=== PATIENT | female | born 1955 | race Caucasian/White ===

== ENCOUNTER 2016-08-29 17:55 | Emergency (ER) | payer BC ==
[~2016-08-29] VITALS: Ht 167.6 cm; Wt 78.5 kg
[2016-08-29] MEDS ORDERED: ZOLP10TA2 PO (18:06)
[2016-08-29] MEDS ORDERED: PRED10TA PO (18:06)
[2016-08-29] MEDS ORDERED: COMBAER6 INH (18:06)
[2016-08-29] MEDS ORDERED: ESOM1CAP5 PO (18:06)
[2016-08-29] MEDS ORDERED: ATOR1TAB21 PO (18:06)
[2016-08-29] MEDS ORDERED: METF1000 PO (18:06)
[2016-08-29] MEDS ORDERED: ALPR0.25 PO (18:06)
[2016-08-29] MEDS ORDERED: SPIR1CAP INH (18:06)
[2016-08-29] MEDS ORDERED: IRBE150T12 (18:06)
[2016-08-29] MEDS ORDERED: methylPREDNISolone INJ 125 MG/2 ML VIAL (J2930) IV ONE (18:45)
[2016-08-29 18:57] LABS: BASO % 0.2 % (0.0-1.0); EOS # 0.1 K/mm3 (0.0-0.50); EOS % 0.9 % (0.0-3.0); LARGE UNSTAINED CELL # 0.1 K/mm3 (0.0-0.4); LARGE UNSTAINED CELL % 0.9 % (0.0-4.0); LYMPH # 1.4 K/mm3 (1.5-4.5); LYMPH % 17.4 % (24.0-44.0); MEAN CORPUSCULAR HEMOGLOBIN 26.7 pg (27.0-33.0); MEAN CORPUSCULAR HGB CONC 32.2 g/dl (32.0-36.5); MEAN CORPUSCULAR VOLUME 83.1 fl (80.0-96.0); MONO # 0.2 K/mm3 (0.0-0.8); MONO % 2.4 % (0.0-5.0); NEUTROPHILS # 5.8 K/mm3 (1.8-7.7); NEUTROPHILS % 78.2 % (36.0-66.0); PLATELET COUNT, AUTOMATED 242 k/mm3 (150-450); RED CELL DISTRIBUTION WIDTH 14.5 % (11.5-14.5); WHITE BLOOD COUNT 7.5 K/mm3 (4.0-10.0)
[2016-08-29] MEDS: IPRATROPIUM 0.5MG/ALBUTEROL 2.5MG INH SOL UD 3ML (DUONEB)(J7620) NEB PRN ×2 (18:58→19:02)
[2016-08-29 19:19] LABS: ALBUMIN 3.2 GM/DL (3.2-5.2); ALBUMIN/GLOBULIN RATIO 0.94 (1.00-1.93); ALKALINE PHOSPHATASE 131 U/L (45-117); ALT/SGPT 21 U/L (12-78); ANION GAP 6 MEQ/L (8-16); AST/SGOT 7 U/L (15-37); BILIRUBIN,DIRECT < 0.1 MG/DL (0.0-0.2); BILIRUBIN,TOTAL 0.3 MG/DL (0.2-1.0); BLOOD UREA NITROGEN 29 MG/DL (7-18); CALCIUM LEVEL 7.9 MG/DL (8.8-10.2); CARBON DIOXIDE LEVEL 31 MEQ/L (21-32); CHLORIDE LEVEL 99 MEQ/L (98-107); CREATININE FOR GFR 1.46 MG/DL (0.55-1.02); GLOMERULAR FILTRATION RATE 38.6 (>45); GLUCOSE, FASTING 343 MG/DL (80-110); SODIUM LEVEL 136 MEQ/L (136-145); THYROXINE (T4) 10.3 UG/DL (4.5-12.0); TOTAL PROTEIN 6.6 GM/DL (6.4-8.2)
[2016-08-29 19:20] LABS: POTASSIUM SERUM 5.2 MEQ/L (3.5-5.1)
[2016-08-29] MEDS ORDERED: hydrALAZINE INJ 20 MG/ML VIAL IV ONE (19:30)
--- NOTE | 2016-08-29 20:11 | ECGEPIP ---
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
[2016-08-29] MEDS ORDERED: NS 1,000 ML IV SCH (20:30)
[2016-08-29] MEDS ORDERED: ISOS40TASA PO (20:53)
[2016-08-29 21:21] VITALS: BP 150/74
--- NOTE | 2016-08-30 08:21 | REP ---
PA and lateral chest: Comparison is 09/11/2015. The lung schultz are clear. The cardiac size is normal The pino, mediastinum, and bony thorax are unremarkable. Impression: Negative PA and lateral chest. Signed by Chauncey Gabriel MD 08/30/2016 08:13 A
== END 2016-08-29 21:38 | disposition home or self-care (01) ==
LOC: M ED 18:41
DX: J44.1 Chronic obstructive pulmonary disease with (acute) exacerbation (principal); F17.200 Nicotine dependence, unspecified, uncomplicated; Z88.0 Allergy status to penicillin; Z88.1 Allergy status to other antibiotic agents; Z79.899 Other long term (current) drug therapy
CPT/HCPCS: 36415; 71020; 80048; 80076; 81001; 82550; 82553; 83605; 83880; 84436; 84443; 85025; 86140; 87040; 87070; 87205; 87486; 87581; 87633; 87798; 87804; 93005; 93041; 94640; 99285; J2930

== ENCOUNTER → 2016-09-07 | Outpatient (REF) | payer BC ==
[~2016-09-07] MED LIST: ALPR0.25 PO; ATOR1TAB21 PO; BENZ100C5 PO; COMBAER6 INH; ESOM1CAP5 PO; GLIP5TAB15 PO; HYDR-4267 PO; IBUP40TA PO; IRBE150T12; ISOS40TASA PO; LORA10TA2 PO; METF1000 PO; OCEA0.654; PRED10TA PO; SPIR1CAP INH; ZOLP10TA2 PO
[2016-09-07 11:26] LABS: MEAN CORPUSCULAR HEMOGLOBIN 26.4 pg (27.0-33.0); MEAN CORPUSCULAR HGB CONC 31.4 g/dl (32.0-36.5); MEAN CORPUSCULAR VOLUME 84.2 fl (80.0-96.0); RED CELL DISTRIBUTION WIDTH 14.8 % (11.5-14.5); WHITE BLOOD COUNT 8.6 K/mm3 (4.0-10.0)
[2016-09-07 11:47] LABS: ALBUMIN 3.1 GM/DL (3.2-5.2); ALBUMIN/GLOBULIN RATIO 0.91 (1.00-1.93); BILIRUBIN,TOTAL 0.5 MG/DL (0.2-1.0); CALCIUM LEVEL 8.7 MG/DL (8.8-10.2); CREATININE FOR GFR 1.23 MG/DL (0.55-1.02); GLOMERULAR FILTRATION RATE 47.1 (>45); POTASSIUM SERUM 4.4 MEQ/L (3.5-5.1); TOTAL PROTEIN 6.5 GM/DL (6.4-8.2)
== END ==
LOC: M LABDRAW1 10:47
PROVIDERS: ATTEND Nurse Practitioner Family
DX: E78.00 Pure hypercholesterolemia, unspecified (principal); I10 Essential (primary) hypertension; E11.9 Type 2 diabetes mellitus without complications

== ENCOUNTER 2016-09-08 16:15 | Inpatient (IN) | payer BC ==
[~2016-09-08] VITALS: Ht 167.6 cm; Wt 81.2 kg
[~2016-09-08 16:15] MED LIST changes: -BENZ100C5 PO; -GLIP5TAB15 PO; -HYDR-4267 PO; -IBUP40TA PO; -LORA10TA2 PO; -OCEA0.654
[2016-09-08] MEDS ORDERED: HYDR-4267 PO (16:26)
[2016-09-08] MEDS ORDERED: methylPREDNISolone INJ 125 MG/2 ML VIAL (J2930) IV ONE (17:15)
[2016-09-08] MEDS: IPRATROPIUM 0.5MG/ALBUTEROL 2.5MG INH SOL UD 3ML (DUONEB)(J7620) NEB PRN ×3 (17:19→17:52)
[2016-09-08 17:22] LABS: BASO % 0.3 % (0.0-1.0); EOS # 0.2 K/mm3 (0.0-0.50); EOS % 1.8 % (0.0-3.0); LARGE UNSTAINED CELL # 0.2 K/mm3 (0.0-0.4); LYMPH # 1.7 K/mm3 (1.5-4.5); LYMPH % 21.3 % (24.0-44.0); MEAN CORPUSCULAR HEMOGLOBIN 25.9 pg (27.0-33.0); MEAN CORPUSCULAR HGB CONC 31.1 g/dl (32.0-36.5); MEAN CORPUSCULAR VOLUME 83.3 fl (80.0-96.0); MONO # 0.4 K/mm3 (0.0-0.8); MONO % 5.2 % (0.0-5.0); NEUTROPHILS # 5.5 K/mm3 (1.8-7.7); NEUTROPHILS % 69.3 % (36.0-66.0); PLATELET COUNT, AUTOMATED 260 k/mm3 (150-450); RED CELL DISTRIBUTION WIDTH 14.7 % (11.5-14.5)
[2016-09-08 17:29] LABS: CALCIUM LEVEL 8.3 MG/DL (8.8-10.2); CREATININE FOR GFR 1.48 MG/DL (0.55-1.02); POTASSIUM SERUM 4.5 MEQ/L (3.5-5.1)
[2016-09-08 17:37] LABS: ABG BASE EXCESS 1.9 (-2.0-2.0); ABG HCO3 26.8 MEQ/L (22.0-26.0); ABG PARTIAL PRESSURE CO2 42.8 mmHg (35.0-45.0); ABG PARTIAL PRESSURE O2 53.9 mmHg (75.0-100.0); ABG STANDARD HCO3 25.9 MEQ/L (22.0-26.0); ABG TOTAL CO2 28.1 MEQ/L (23.0-31.0); ABG pH (ARTERIAL) 7.414 UNITS (7.350-7.450)
--- NOTE | 2016-09-08 18:26 | REP ---
Portable chest, 09/08/2016, 05:23 p.m., single AP view the patient sitting: Comparison 08/29/2016. Lung schultz are clear. Cardiac size is normal. The pino, mediastinum, bony thorax are changed. Impression: There are no acute cardiopulmonary findings. Signed by Chauncey Gabriel MD 09/08/2016 06:18 P
[2016-09-08] MEDS ORDERED: LORA10TA2 PO (19:16)
[2016-09-08] MEDS ORDERED: IBUP40TA PO (19:16)
[2016-09-08] MEDS ORDERED: PERCOCET 5MG/325MG TAB PO PRN (19:45)
[2016-09-08] MEDS ORDERED: LORATADINE 10 MG TAB PO PRN (19:45)
[2016-09-08] MEDS ORDERED: LEVALBUTEROL 1.25 MG/0.5 ML CONCENTRATE NEB INH PRN (19:45)
[2016-09-08] MEDS ORDERED: ALPRAZolam 0.25 MG TAB PO PRN (19:45)
[2016-09-08] MEDS ORDERED: IPRATROPIUM 0.02% SOLN 0.5MG/2.5 ML NEB INH PRN (19:45)
[2016-09-08] MEDS ORDERED: GLUCAGON FOR INJ 1 MG VIAL (J1610) SC PRN (20:00)
[2016-09-08] MEDS: IPRATROPIUM 0.02% SOLN 0.5MG/2.5 ML NEB INH SCH (20:00)
[2016-09-08] MEDS: LEVALBUTEROL 1.25 MG/0.5 ML CONCENTRATE NEB INH SCH (20:00)
[2016-09-08] MEDS ORDERED: GLUCOSE 4 GM CHEW TABLET PO PRN (20:00)
[2016-09-08] MEDS ORDERED: DEXTROSE 50% 50 ML SYRINGE IV PRN (20:00)
--- NOTE | 2016-09-08 20:39 | HPE ---
DATE OF ADMISSION: 09/08/2016 PRIMARY CARE PROVIDER: DARRYL Mcrae CHIEF COMPLAINT: Shortness of breath. HISTORY OF PRESENT ILLNESS: Patient is a 61-year-old female with known chronic obstructive pulmonary disease (COPD), previously followed by Dr. Rebolledo, but awaiting a new appointment with Dr. Galvez. She tells me for the last two weeks, she has been having shortness of breath with increased cough and increased sputum production. She is an active smoker with two packs per day, greater than a 65-pack year history. She tells me that in the last two weeks or so, she has been having some much trouble breathing that she has actually cut back to 15 cigarettes per day. She presented to the emergency room nine days ago and they had wanted to admit her then, but the patient declined admission, went home with antibiotics. She completed a course of antibiotics; however, she did not have significant improvement of her symptoms. She was seen in followup by her primary care provider, who gave her a course of steroids with a second course of antibiotics. She did have some improvement following this, but only briefly. She tells me that with the steroids she had insomnia and jitteriness. Symptoms progressively worsened once again to the point where she presented back to the emergency room today. She tells me that after receiving nebulizer treatments and steroids in the emergency room, she is actually feeling a little bit better, but when an attempt was made to ambulate the patient, she desaturated to the mid 80s and became quite tachycardic. She denies fevers, chills, nausea, vomiting, chest pain, lightheadedness, dizziness, or episodes of passing out. PAST MEDICAL HISTORY: 1. Chronic obstructive pulmonary disease (COPD). 2. Chronic kidney disease. Baseline creatinine approximately 1.3. 3. Hypertension. 4. Gastroesophageal reflux disease. 5. Diabetes mellitus. 6. Dyslipidemia. 7. Insomnia. ALLERGIES: CEFUROXIME, PENICILLINS. PAST SURGICAL HISTORY: 1. Knee surgery. 2. Back surgery. SOCIAL HISTORY: Patient has a greater than 65-pack year history of smoking. She was smoking two packs per day up until two weeks ago and in the last one week has decreased down to 15 cigarettes per day secondary to her shortness of breath. She denies alcohol or illicit drug use. She lives at home with her and she is the primary caregiver for him. He has recently been hospitalized and this is why she waited so long to seek medical attention for herself. HOME MEDICATIONS: - Combivent 20/100 mcg one puff four times a day - ibuprofen 400 mg as needed pain - metformin 1 gram twice a day with meals - Nexium 40 mg daily - Xanax 0.25 mg daily as needed for anxiety - atorvastatin 20 mg at bedtime - hydralazine 50 mg by mouth twice a day - loratadine 10 mg daily as needed allergies - Spiriva 18 mcg inhaled daily - Ambien 10 mg by mouth at bedtime REVIEW OF SYSTEMS: As noted in history of present illness (HPI). FAMILY HISTORY: Noncontributory. OBJECTIVE: PHYSICAL EXAMINATION: VITAL SIGNS: Temperature 98.1, heart rate 104, respiratory rate 20, blood pressure 159/78, oxygen saturation 86% on room air; she is 92% on 2 liters when I am examining her in the room. GENERAL: She is an obese, elderly female sitting on the edge of the bed. She does not appear to be in any acute distress at the present time. HEENT: Cranial nerves II-XII are grossly intact. She has dry mucous membranes. No elevation of central venous pressure. CARDIOVASCULAR: S1, S2. She is tachycardic without additional heart sounds appreciated. RESPIRATORY EXAMINATION: Show diminished breath sounds throughout with diffuse end expiratory wheeze. It is quite tight with poor air movement. ABDOMINAL EXAMINATION: Obese. EXTREMITIES: No clubbing, cyanosis or edema. LABORATORY STUDIES: WBC 8.0, hemoglobin 30.9, hematocrit 44.8, platelet count 260. Chemistry panel: Sodium 138, potassium 4.5, chloride 102, bicarbonate 30, BUN 28, creatinine 1.4. Arterial blood gas revealed a pH of 7.4, pCO2 of 42.8, pO2 of 53.9. Blood cultures were drawn and are pending. IMAGING: A chest x-ray was completed that revealed no acute cardiopulmonary findings. ASSESSMENT AND PLAN: This is a 61-year-old female with decompensating chronic obstructive pulmonary disease (COPD). PROBLEMS: 1. Decompensating chronic obstructive pulmonary disease (COPD). Patient will be admitted to the medical/surgical floor, started on Xopenex and ipratropium standing and as needed. We will also continue her on IV Solu-Medrol. She takes Ambien as needed normally for insomnia. She may have adverse effects, considering the secondary steroids that she has had in the past. The patient has active smoking cessation and counseling stressed. She declined a nicotine patch and says she does not need it. I suspect that with cessation while in the hospital and the above measures, her symptoms will gradually improve within the next 48 hours, should he be able to tolerate an ambulating oxygen saturation with maintaining saturations greater than 88. She could even be discharged as early tomorrow morning, depending on her progress. I will obtain a respiratory polymerase chain reaction (PCR) panel when she has completed two courses of antibiotics today. I do not see any evidence for an acute infection. 2. Chronic kidney disease. Stable. 3. Hypertension. Continue with hydralazine. 4. Gastroesophageal reflux disease. We will substitute Nexium with Protonix. 5. Type 2 diabetes. We will hold metformin and start placement of sliding scale insulin. 6. Anxiety. We will continue with home Xanax. 7. Insomnia. Continue with Ambien. 8. Seasonal allergies. Continue with Claritin as needed. 9. Deep venous thrombosis (DVT) prophylaxis. The patient will be on Lovenox. DISPOSITION: The patient will be admitted to the medical/surgical floor. Dr. Vides's service will continue following the patient at 7:00 a.m.
[2016-09-08 20:55] VITALS: BP 178/87
[2016-09-08] MEDS: HumaLOG INSULIN (NovoLOG) PER UNIT SC SCH (21:00)
[2016-09-08] MEDS: **hydrALAZINE** 50 MG TAB PO SCH (21:26)
[2016-09-08] MEDS: zolPIDEM TARTRATE 10MG TAB PO SCH (21:27)
[2016-09-08] MEDS: ATORVASTATIN 20 MG TAB PO SCH (21:27)
[2016-09-08] MEDS: methylPREDNISolone INJ 125 MG/2 ML VIAL (J2930) IV SCH (22:50)
[2016-09-09] MEDS: methylPREDNISolone INJ 125 MG/2 ML VIAL (J2930) IV SCH ×4 (04:53→22:26)
[2016-09-09 05:30] VITALS: BP 162/98
[2016-09-09] MEDS: ACETAMINOPHEN TAB 650MG DOSE (2X325MG) PO PRN ×3 (06:00→19:28)
[2016-09-09 06:42] LABS: MEAN CORPUSCULAR HEMOGLOBIN 26.6 pg (27.0-33.0); MEAN CORPUSCULAR HGB CONC 31.8 g/dl (32.0-36.5); MEAN CORPUSCULAR VOLUME 83.5 fl (80.0-96.0); RED CELL DISTRIBUTION WIDTH 14.6 % (11.5-14.5); WHITE BLOOD COUNT 4.9 K/mm3 (4.0-10.0)
[2016-09-09 06:49] VITALS: BP 150/82
[2016-09-09 06:57] LABS: ANION GAP 7 MEQ/L (8-16); BLOOD UREA NITROGEN 34 MG/DL (7-18); CALCIUM LEVEL 8.5 MG/DL (8.8-10.2); CARBON DIOXIDE LEVEL 29 MEQ/L (21-32); CHLORIDE LEVEL 100 MEQ/L (98-107); CREATININE FOR GFR 1.46 MG/DL (0.55-1.02); GLOMERULAR FILTRATION RATE 38.6 (>45); GLUCOSE, FASTING 354 MG/DL (80-110); POTASSIUM SERUM 4.8 MEQ/L (3.5-5.1); SODIUM LEVEL 136 MEQ/L (136-145)
[2016-09-09] MEDS: LEVALBUTEROL 1.25 MG/0.5 ML CONCENTRATE NEB INH SCH ×7 (08:35→23:06)
[2016-09-09] MEDS ORDERED: LEVALBUTEROL 1.25 MG/0.5 ML CONCENTRATE NEB INH PRN (08:45)
[2016-09-09] MEDS: IPRATROPIUM 0.02% SOLN 0.5MG/2.5 ML NEB INH SCH ×4 (08:51→20:14)
[2016-09-09] MEDS: HumaLOG INSULIN (NovoLOG) PER UNIT SC SCH ×4 (08:51→20:57)
[2016-09-09] MEDS: ENOXAPARIN 40 MG/0.4 ML SYRINGE (J1650) SC SCH (08:53)
[2016-09-09] MEDS: **hydrALAZINE** 50 MG TAB PO SCH ×2 (08:54→20:56)
[2016-09-09] MEDS: PANTOPRAZOLE 40MG TAB (PROTONIX) PO SCH (08:54)
--- NOTE | 2016-09-09 08:57 | ECGEPIP ---
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
[2016-09-09] MEDS: TIOTROPIUM INHALER/CAPSULE (SPIRIVA) INH SCH (09:00)
[2016-09-09 14:00] VITALS: BP 162/90
--- NOTE | 2016-09-09 18:32 | IPNPDOC ---
Text Note Date of Service The patient was seen on 09/09/16. NOTE Subjective: Patient seen and examined at bedside. Received breathing tx this AM and states she felt improvement in her breathing. Admits to SOB with exertion still when she gets out of bed to go to the bathroom. States she cannot walk without SOB. However, she states she feels much better than when she first came to the hospital. States she has decreased cough and sputum production from prior. Denies fevers, chills, chest pain, SOB at rest, nausea, vomiting, diarrhea, constipation, abdominal pain, hematochezia, dysuria, hematuria, weakness in her extremities bilaterally. Denies dizziness or palpitations. Admits to a bilateral frontal headache. When asked if she would like nicotine patch, states she does not wish for the patches. States she is working on quitting smoking and has reduced herself to ~14 cigarettes per day. Her goal is to try to quit by the time she goes home. Objective: Vitals: T: 98 BP: 162/98 RR: 17 P: 99 O2 Saturation: 91% on 1 L NC General: AAO x 3. Pleasant and cooperative female. Appears stated age. In NAD. HEENT: Head: normocephalic, atraumatic. Ears: grossly normal hearing bilaterally. Eyes: Sclera are nonicteric. Nose: No external lesions. Neck: Supple. No cervical LAD bilaterally. No thyromegaly. Respiratory: +End expiratory wheezes present throughout all lung schultz bilaterally. Diminished breath sounds in all lung schultz. Prolonged expiratory phase. No observed use of accessory muscles. Speaks in clear sentences. On oxygen via nasal cannula. Cardiovascular: regular rate and rhythm, with no murmurs, rubs or gallops. Abdomen: soft, nontender, nondistended, no hepatosplenomegaly appreciated. Bowel sounds present. Extremities: no swelling in either lower extremity bilaterally. Musculoskeletal: Normal ROM. Neurological: no focal neurologic deficits appreciated bilaterally. Integumentary: skin free from rashes, lesions, abrasions Vascular: +2 dorsalis pedis and radial pulses palpable and symmetrical bilaterally Laboratory data: Please see below. CBC unremarkable. Microbiology: Blood Cx Pending Respiratory virus panel: (-) Imaging: CXR: (-) Assessment: 61 yo F is presenting for decompensating COPD exacerbation. Plan: Decompensating COPD Exacerbation: Continue xoponex and ipratropium bromide ( atrovent) as scheduled and PRN. Continue spiriva daily. Continue IV solumedrol. Continue oxygen supplementation to keep sats 90-92% and above 88 %. Will gradually work on weaning oxygen and steroid therapy as tolerated. CBC unremarkable without elevated WBC. No fevers reported by patient. Resp virus panel was (-). No evidence of acute infection. Will hold off on antibiotics at this time. Offered nicotine patches to help with smoking cessation. Patient declined. CKD: BUN 34 and Cr 1.46 with GFR 36.6 in stage 3 CKD range. Stable. HTN: Uncontrolled. Continue hydralazine and monitor BPs. If still uncontrolled, with consider adding another antihypertensive. GERD: continue pantoprazole. DM 2: continue ISS at AC and HS. Hold metformin. Anxiety: continue Xanax. Insomnia: continue ambien QHS. Seasonal allergies: PRN claritin. DVT ppx: lovenox Immunizations as per protocol. My preceptor for this patient encounter was Dr. Praful Vides, and was physically present in the building during the encounter and was fully available. As needed, all aspects of the patient interview, examination, medical decision making process, and medical care plan development were reviewed and approved by the preceptor. Preceptor is aware and concurs with the plan as stated in the body of this note and will attest to such by his/her cosignature. Attending Note I, Dr. Vides, Hospitalist Attending Physician, have independently interviewed and examined the patient at the bedside. I have discussed the management plan with my Resident Physician, and agree with the documentation as stated above. GME ATTESTATION My preceptor for this patient encounter was physically present in the building during the encounter and was fully available. As needed, all aspects of the patient interview, examination, medical decision making process, and medical care plan development were reviewed and approved by the preceptor. Preceptor is aware and concurs with the plan as stated in the body of this note and will attest to such by his/her cosignature. VS,Fishbone, I+O VS, Fishbone, I+O Laboratory Tests 09/09/16 06:28 Red Blood Count 4.89, Mean Corpuscular Volume 83.5, Mean Corpuscular Hemoglobin 26.6 L, Mean Corpuscular Hemoglobin Concent 31.8 L, Red Cell Distribution Width 14.6 H, Calcium Level 8.5 L, Total Creatine Kinase 45 Vital Signs Date Time Temp Pulse Resp B/P (MAP) Pulse Ox O2 Delivery O2 Flow Rate FiO2 09/09/16 14:00 97.9 89 20 162/90 (114) 89 Nasal Cannula 1.0 I&O- Last 24 Hours up to 6 AM 09/09/16 05:59 Intake Total 0 ml Output Total 200 ml Balance -200 ml ZACHERY SULLIVAN OGME-1 Sep 09, 2016 18:32 PRAFUL VIDES MD Sep 10, 2016 06:45
[2016-09-09 20:10] VITALS: BP 158/84
[2016-09-09] MEDS: ATORVASTATIN 20 MG TAB PO SCH (20:56)
[2016-09-09] MEDS: zolPIDEM TARTRATE 10MG TAB PO SCH (20:56)
[2016-09-10 05:20] VITALS: BP 154/82
[2016-09-10] MEDS: methylPREDNISolone INJ 125 MG/2 ML VIAL (J2930) IV SCH ×3 (05:43→20:58)
[2016-09-10 06:15] LABS: MEAN CORPUSCULAR HEMOGLOBIN 26.8 pg (27.0-33.0); MEAN CORPUSCULAR HGB CONC 32.2 g/dl (32.0-36.5); RED CELL DISTRIBUTION WIDTH 14.7 % (11.5-14.5); WHITE BLOOD COUNT 11.6 K/mm3 (4.0-10.0)
[2016-09-10 06:31] LABS: CALCIUM LEVEL 8.7 MG/DL (8.8-10.2); CREATININE FOR GFR 1.54 MG/DL (0.55-1.02); GLOMERULAR FILTRATION RATE 36.3 (>45); POTASSIUM SERUM 4.6 MEQ/L (3.5-5.1)
[2016-09-10] MEDS: **hydrALAZINE** 50 MG TAB PO SCH ×2 (07:39→20:59)
[2016-09-10] MEDS: PANTOPRAZOLE 40MG TAB (PROTONIX) PO SCH (07:39)
[2016-09-10] MEDS: HumaLOG INSULIN (NovoLOG) PER UNIT SC SCH ×4 (07:40→20:59)
[2016-09-10] MEDS: ENOXAPARIN 40 MG/0.4 ML SYRINGE (J1650) SC SCH (07:40)
[2016-09-10] MEDS: IPRATROPIUM 0.02% SOLN 0.5MG/2.5 ML NEB INH SCH ×4 (08:11→20:15)
[2016-09-10] MEDS: LEVALBUTEROL 1.25 MG/0.5 ML CONCENTRATE NEB INH SCH ×4 (08:11→20:15)
[2016-09-10 08:14] VITALS: O2SAT 86
[2016-09-10] MEDS ORDERED: RIZATRIPTAN BENZOATE 10 MG TAB PO ONE (10:15)
[2016-09-10] MEDS: TIOTROPIUM INHALER/CAPSULE (SPIRIVA) INH SCH (11:12)
[2016-09-10] MEDS ORDERED: MORPHINE 15 MG SA TAB PO ONE (11:45)
[2016-09-10 14:00] VITALS: BP 139/67
--- NOTE | 2016-09-10 14:58 | IPNPDOC ---
Text Note Date of Service The patient was seen on 09/10/16. NOTE Subjective: Patient seen and examined at bedside. Received breathing tx this AM and states she felt improvement in her breathing. Admits to SOB with exertion still when she gets out of bed to go to the bathroom. States she cannot walk without SOB but is improving from two days ago when she could only walk 5 steps before stopping for air. However, she states she feels much better than when she first came to the hospital. States she has decreased cough and sputum production from prior. Denies fevers, chills, chest pain, SOB at rest, nausea, vomiting, diarrhea, constipation, abdominal pain, hematochezia, dysuria, hematuria, weakness in her extremities bilaterally. Denies dizziness or palpitations. Admits to a bilateral frontal headache which she attributes to the breathing treatments and improves in between treatments. Also reports a mild tremor which she also attributes to the steroids. She is thirsty and has increased water and juice intake but denies any edema. When asked if she would like nicotine patch, states she does not wish for the patches. States she is working on quitting smoking and has reduced herself to ~14 cigarettes per day. Her goal is to try to quit by the time she goes home. Objective: Vitals: T:97.7 F BP:158/84 RR:17 P:98 O2 Saturation: 92% on 1L NC General: AAO x 3. Pleasant and cooperative Elderly female. Appears stated age. In NAD. HEENT: Head: normocephalic, atraumatic. Ears: grossly normal hearing bilaterally. Eyes: Sclera are nonicteric. Nose: No external lesions. Neck: Supple. No cervical LAD bilaterally. No thyromegaly. Respiratory: +End expiratory wheezes present throughout all lung schultz bilaterally. Diminished breath sounds in all lung schultz. Prolonged expiratory phase. No observed use of accessory muscles. Speaks in clear sentences. On oxygen via nasal cannula. Cardiovascular: Tachycardia. No murmurs, rubs or gallops. Abdomen: soft, nontender, nondistended, no hepatosplenomegaly appreciated. Bowel sounds present. Extremities: no swelling in either lower extremity bilaterally. Musculoskeletal: Normal ROM. Neurological: There is a fine tremor of the right hand at rest Integumentary: skin free from rashes, lesions, abrasions Vascular: +2 dorsalis pedis and radial pulses palpable and symmetrical bilaterally Laboratory data: Please see below. CBC unremarkable except for mild leukocytosis at 11.6 at 0551 today Troponin (-) x2. Microbiology: Blood Cx: NGTD x 24 hours. Respiratory virus panel: (-) Imaging: CXR: (-) Assessment: 61 yo F is presenting for decompensating COPD exacerbation. Plan: Decompensating COPD Exacerbation: Continue xoponex and ipratropium bromide ( atrovent) as scheduled and PRN. Will change xoponex frequency to QID from Rq4h. Continue spiriva daily. Continue IV solumedrol. Will taper down to 40 IV when patient can be either weaned off oxygen or when she is able to keep saturations above 88%. Would like patient to not be at risk for desaturation. Continue oxygen supplementation to keep sats 88-92%. Will gradually work on weaning oxygen and steroid therapy as tolerated. CBC showed an elevated WBC of 11.6 from 4.9 most likely secondary to steroid therapy. No fevers reported by patient. Resp virus panel was (-). No evidence of acute infection. Will hold off on antibiotics at this time. Offered nicotine patches to help with smoking cessation. Patient declined. CKD: BUN 43 and Cr 1.54 with GFR 36.3 in stage 3 CKD range. Stable as patient as chronic CKD. HTN: Uncontrolled. Continue hydralazine and monitor BPs after medications given. If still uncontrolled, with consider adding another antihypertensive. GERD: continue pantoprazole. DM 2: Patient is hyperglycemic with glucose in 200-300s range likely secondary to steroid therapy. Continue ISS at AC and HS and titrate up. Hold metformin. Anxiety: continue Xanax. Insomnia: continue ambien QHS. Seasonal allergies: PRN claritin. DVT ppx: lovenox Immunizations as per protocol. My preceptor for this patient encounter was Dr. Medina Vides, and was physically present in the building during the encounter and was fully available. As needed, all aspects of the patient interview, examination, medical decision making process, and medical care plan development were reviewed and approved by the preceptor. Preceptor is aware and concurs with the plan as stated in the body of this note and will attest to such by his/her cosignature. VS,Fishbone, I+O VS, Fishbone, I+O Laboratory Tests 09/10/16 05:51 Red Blood Count 4.74, Mean Corpuscular Volume 83.0, Mean Corpuscular Hemoglobin 26.8 L, Mean Corpuscular Hemoglobin Concent 32.2, Red Cell Distribution Width 14.7 H, Calcium Level 8.7 L Vital Signs Date Time Temp Pulse Resp B/P (MAP) Pulse Ox O2 Delivery O2 Flow Rate FiO2 09/10/16 12:00 Nasal Cannula 1.0 09/10/16 08:14 86 09/10/16 05:20 97.3 95 17 154/82 (106) I&O- Last 24 Hours up to 6 AM 09/10/16 06:00 Intake Total 1680 ml Output Total 250 ml Balance 1430 ml ZACHERY SULLIVAN OGME-1 Sep 10, 2016 14:25
[2016-09-10 20:35] VITALS: BP 156/88
[2016-09-10] MEDS: ATORVASTATIN 20 MG TAB PO SCH (20:59)
[2016-09-10] MEDS: zolPIDEM TARTRATE 10MG TAB PO SCH (20:59)
[2016-09-10 21:20] VITALS: BP 156/88
[2016-09-11] MEDS: methylPREDNISolone INJ 125 MG/2 ML VIAL (J2930) IV SCH (05:27)
[2016-09-11 05:53] LABS: MEAN CORPUSCULAR HEMOGLOBIN 26.9 pg (27.0-33.0); MEAN CORPUSCULAR HGB CONC 31.9 g/dl (32.0-36.5); MEAN CORPUSCULAR VOLUME 84.2 fl (80.0-96.0); RED CELL DISTRIBUTION WIDTH 14.7 % (11.5-14.5); WHITE BLOOD COUNT 11.2 K/mm3 (4.0-10.0)
[2016-09-11 06:06] LABS: CALCIUM LEVEL 8.7 MG/DL (8.8-10.2); CREATININE FOR GFR 1.45 MG/DL (0.55-1.02); POTASSIUM SERUM 4.8 MEQ/L (3.5-5.1)
[2016-09-11 06:25] VITALS: BP 142/74
[2016-09-11] MEDS ORDERED: BENZONATATE 100 MG CAP PO PRN (07:30)
[2016-09-11] MEDS: IPRATROPIUM 0.02% SOLN 0.5MG/2.5 ML NEB INH SCH ×4 (07:37→20:32)
[2016-09-11] MEDS: TIOTROPIUM INHALER/CAPSULE (SPIRIVA) INH SCH (07:37)
[2016-09-11] MEDS: LEVALBUTEROL 1.25 MG/0.5 ML CONCENTRATE NEB INH SCH ×4 (07:37→20:32)
[2016-09-11] MEDS: HumaLOG INSULIN (NovoLOG) PER UNIT SC SCH ×4 (08:34→21:51)
[2016-09-11] MEDS: ACETAMINOPHEN TAB 650MG DOSE (2X325MG) PO PRN ×2 (08:35→16:10)
[2016-09-11] MEDS: PANTOPRAZOLE 40MG TAB (PROTONIX) PO SCH (10:07)
[2016-09-11] MEDS: ENOXAPARIN 40 MG/0.4 ML SYRINGE (J1650) SC SCH (10:07)
[2016-09-11] MEDS: **hydrALAZINE** 50 MG TAB PO SCH ×2 (10:08→21:50)
[2016-09-11 11:06] VITALS: BP 150/78
[2016-09-11 14:00] VITALS: BP 150/78
[2016-09-11] MEDS: methylPREDNISolone INJ 40 MG/1 ML VIAL (J2920) IV SCH (17:36)
--- NOTE | 2016-09-11 21:24 | IPNPDOC ---
Text Note Date of Service The patient was seen on 09/11/16. NOTE Subjective: Patient seen and examined at bedside. Admits to some improvement with SOB from 3 days ago with ambulation and states she is trying to increase the distance she can walk to try to get out of the room. Would like to walk with nurses to aid her and states she will work on this. States she has decreased cough and sputum production from prior but the same as yesterday and the day before. Denies headache, fevers, chills, chest pain, SOB at rest, nausea, vomiting, diarrhea, constipation, abdominal pain, hematochezia, dysuria, hematuria, weakness in her extremities bilaterally, or peripheral edema. Denies dizziness or palpitations. States headache was relieved by tylenol. Reports adverse reaction to maxalt given yesterday for headache, and she felt very sick all over , felt pressure to the top of her head to her toes, but had no SOB or difficulty swallowing or swelling of her tongue at that time. Nurse states that her VS were stable at that time. Patient states she declined morphine, and was able to calm down and felt better after ~45 minutes. States her reaction was then gone. Feels less jittery today than yesterday. Objective: Vitals: T: 97.4 BP: 142/74 RR: 17 P: 86 O2 Saturation: 93% room air General: AAO x 3. Pleasant and cooperative Elderly female. Appears stated age. In NAD. HEENT: Head: normocephalic, atraumatic. Ears: grossly normal hearing bilaterally. Eyes: Sclera are nonicteric. Nose: No external lesions. Neck: Supple. No cervical LAD bilaterally. No thyromegaly. Respiratory: Clear but diminished breath sounds in all lung schultz. Prolonged expiratory phase with some mild scattered end-expiratory wheezing. No observed use of accessory muscles. Speaks in clear sentences. On oxygen via nasal cannula at 2 Liters when examined this AM. Cardiovascular: Tachycardia. No murmurs, rubs or gallops. Abdomen: soft, nontender, nondistended, no hepatosplenomegaly appreciated. Bowel sounds present. Extremities: no swelling in either lower extremity bilaterally. Musculoskeletal: Normal ROM. Neurological: no focal neurologic deficits appreciated bilaterally Integumentary: skin free from rashes, lesions, abrasions Vascular: +2 dorsalis pedis and radial pulses palpable and symmetrical bilaterally Laboratory data: Please see below. WBC at 11.2 from 11.6 yesterday. Microbiology: Blood Cx: No growth after 48 hours Respiratory virus panel: (-) Imaging: CXR: (-) Assessment: 61 yo F is presenting for decompensating COPD exacerbation. Plan: Decompensating COPD Exacerbation: Continue xoponex and ipratropium bromide ( atrovent) as scheduled and PRN. Continue spiriva daily. Continue IV solumedrol with frequency changed from q6h IV to q8h IV. Continue oxygen supplementation to keep sats 88-92 %. Will gradually work on weaning oxygen and steroid therapy as tolerated. CBC showed WBC at 11.2 from 11.6 yesterday. No fevers reported by patient. Resp virus panel was (-). No evidence of acute infection. Will hold off on antibiotics at this time. Offered nicotine patches to help with smoking cessation. Patient declined. CKD: BUN 49 and Cr 1.45 with GFR 39 in stage 3 CKD range. Stable CKD. HTN: Uncontrolled with systolic pressures still in 150s. Continue hydralazine and monitor BPs after medication administration. If still uncontrolled, with consider adding another antihypertensive such as thiazide diuretic as JANENE/ARB will not be beneficial due to CKD. GERD: continue pantoprazole. DM 2: Hyperglycemic with fasting glucose at 393. Most likely 2/2 to steroid tx. Continue ISS at AC and HS and begin to titrate dose. Hold metformin. Anxiety: continue Xanax. Insomnia: continue ambien QHS. Seasonal allergies: PRN claritin. DVT ppx: lovenox Immunizations as per protocol. My preceptor for this patient encounter was Dr. Medina Vides, and was physically present in the building during the encounter and was fully available. As needed, all aspects of the patient interview, examination, medical decision making process, and medical care plan development were reviewed and approved by the preceptor. Preceptor is aware and concurs with the plan as stated in the body of this note and will attest to such by his/her cosignature. VS,Fishbone, I+O VS, Fishbone, I+O Laboratory Tests 09/11/16 05:18 Calcium Level 8.7 L 09/11/16 05:19 Red Blood Count 4.69, Mean Corpuscular Volume 84.2, Mean Corpuscular Hemoglobin 26.9 L, Mean Corpuscular Hemoglobin Concent 31.9 L, Red Cell Distribution Width 14.7 H Vital Signs Date Time Temp Pulse Resp B/P (MAP) Pulse Ox O2 Delivery O2 Flow Rate FiO2 09/11/16 14:00 97.5 97 20 150/78 (102) 93 Nasal Cannula 2.0 I&O- Last 24 Hours up to 6 AM 09/11/16 06:00 Intake Total 2040 ml Output Total 1700 ml Balance 340 ml ZACHERY SULLIVAN OGME-1 Sep 11, 2016 21:24
[2016-09-11] MEDS: ATORVASTATIN 20 MG TAB PO SCH (21:50)
[2016-09-11] MEDS: zolPIDEM TARTRATE 10MG TAB PO SCH (21:50)
[2016-09-11 22:00] VITALS: BP 140/80
[2016-09-12] MEDS: methylPREDNISolone INJ 40 MG/1 ML VIAL (J2920) IV SCH (05:11)
[2016-09-12 05:49] LABS: MEAN CORPUSCULAR HEMOGLOBIN 26.2 pg (27.0-33.0); MEAN CORPUSCULAR HGB CONC 31.4 g/dl (32.0-36.5); MEAN CORPUSCULAR VOLUME 83.4 fl (80.0-96.0); RED CELL DISTRIBUTION WIDTH 14.6 % (11.5-14.5); WHITE BLOOD COUNT 9.6 K/mm3 (4.0-10.0)
[2016-09-12 05:59] LABS: CALCIUM LEVEL 8.4 MG/DL (8.8-10.2); CREATININE FOR GFR 1.39 MG/DL (0.55-1.02); GLOMERULAR FILTRATION RATE 40.9 (>45); POTASSIUM SERUM 4.8 MEQ/L (3.5-5.1)
[2016-09-12 06:00] VITALS: BP 165/84
[2016-09-12 06:13] LABS: INR 0.94
[2016-09-12] MEDS: IPRATROPIUM 0.02% SOLN 0.5MG/2.5 ML NEB INH SCH ×4 (08:00→20:11)
[2016-09-12] MEDS: LEVALBUTEROL 1.25 MG/0.5 ML CONCENTRATE NEB INH SCH ×4 (08:21→20:11)
[2016-09-12] MEDS: TIOTROPIUM INHALER/CAPSULE (SPIRIVA) INH SCH (08:21)
[2016-09-12] MEDS: PANTOPRAZOLE 40MG TAB (PROTONIX) PO SCH (08:54)
[2016-09-12] MEDS: predniSONE 20 MG TAB PO SCH ×2 (08:54→21:40)
[2016-09-12] MEDS: HumaLOG INSULIN (NovoLOG) PER UNIT SC SCH ×4 (08:55→21:40)
[2016-09-12] MEDS: **hydrALAZINE** 50 MG TAB PO SCH ×2 (08:57→21:40)
[2016-09-12] MEDS ORDERED: ASPIRIN 81 MG ENTERIC TAB PO SCH (09:00)
[2016-09-12] MEDS ORDERED: SODIUM CHLORIDE NASAL 0.65% SPRAY BTL (OCEAN) PRN (09:00)
[2016-09-12] MEDS: glipiZIDE XL 5 MG TABCR PO SCH ×2 (09:20→18:10)
--- NOTE | 2016-09-12 10:35 | IPN ---
DATE: 09/12/2016 The patient is seen and examined at the bedside. Chart has been reviewed. The patient is still requiring oxygen. Saturating 86% on room air and 93% to 95% on 2 liters of nasal cannula. The patient denies any chest pain, pressure, tightness. Cough with slight sputum production, mainly dry. Afebrile overnight. No chills. VITAL SIGNS: Temperature 97.9, pulse 106, respiratory rate 18, blood pressure 165/84, 93% on 2 liters nasal cannula. GENERAL: Awake, alert and oriented times three. Answering questions appropriately. No significant respiratory distress. Able to speak in full sentences. No jugular venous distention. No thyromegaly. No cervical lymphadenopathy. LUNGS: Diminished. Bilateral wheezing. Improved air entry from yesterday. HEART: S1, S2. Sinus rhythm. ABDOMEN: Soft, nontender, nondistended. Positive bowel sounds. EXTREMITIES: No cyanosis, clubbing or pitting edema. LABORATORY DATA: White count 9.6, hemoglobin 13, hematocrit 41, platelet count 253. Sodium 135, potassium 4.8, chloride 98, bicarbonate 30, BUN 40, creatinine 1.39, glucose of 328. Fingersticks 418, 268, 417, 378, 470. ASSESSMENT AND PLAN: 61-year-old female with a history of chronic obstructive pulmonary disease (COPD), chronic kidney disease with baseline creatinine approximately 1.3, hypertension, reflux, diabetes, dyslipidemia, insomnia, who presented to the emergency room with worsening shortness of breath and admitted for COPD exacerbation. The patient was previously followed by Dr. Rebolledo. Currently awaiting a new appointment with Dr. Galvez. Worsening shortness of breath for the past two weeks, was actively smoking two packs a day, greater than 65 years of smoking. Current issues: 1. COPD exacerbation. Continue with tapering of steroids, nebulizer treatments, supplemental oxygen for now. Chest x-ray shows no acute disease. Microbiology, RSV is negative. Blood cultures with no growth. 2. Acute hypoxic respiratory failure requiring supplemental oxygen secondary to COPD exacerbation. Oxygen saturation goal of 88 to 92%. Wean off oxygen. 3. Chronic kidney disease. Currently at baseline creatinine. 4. Hypertension. On hydralazine. 5. Reflux. On Protonix. 6. Type 2 diabetes. On sliding scale, consistent carbohydrate diet. Start on glipizide. 7. Hyperlipidemia. On Lipitor. 8. Deep vein thrombosis (DVT) prophylaxis with Lovenox.
[2016-09-12 14:00] VITALS: BP 170/80
[2016-09-12 18:51] VITALS: BP 160/80
[2016-09-12] MEDS: zolPIDEM TARTRATE 10MG TAB PO SCH (21:40)
[2016-09-12] MEDS: ATORVASTATIN 20 MG TAB PO SCH (21:40)
[2016-09-12 22:00] VITALS: BP 130/80
[2016-09-13 06:00] VITALS: BP 163/83
[2016-09-13 06:02] LABS: MEAN CORPUSCULAR HEMOGLOBIN 27.1 pg (27.0-33.0); MEAN CORPUSCULAR VOLUME 82.2 fl (80.0-96.0); RED CELL DISTRIBUTION WIDTH 14.4 % (11.5-14.5); WHITE BLOOD COUNT 15.5 K/mm3 (4.0-10.0)
[2016-09-13 06:24] LABS: CALCIUM LEVEL 8.6 MG/DL (8.8-10.2); CREATININE FOR GFR 1.45 MG/DL (0.55-1.02)
[2016-09-13] MEDS: PANTOPRAZOLE 40MG TAB (PROTONIX) PO SCH (07:50)
[2016-09-13] MEDS: **hydrALAZINE** 50 MG TAB PO SCH ×2 (07:50→21:02)
[2016-09-13] MEDS: glipiZIDE XL 5 MG TABCR PO SCH ×2 (07:51→17:41)
[2016-09-13] MEDS: predniSONE 20 MG TAB PO SCH ×2 (07:51→21:02)
[2016-09-13] MEDS: HumaLOG INSULIN (NovoLOG) PER UNIT SC SCH ×4 (07:52→21:01)
[2016-09-13] MEDS: TIOTROPIUM INHALER/CAPSULE (SPIRIVA) INH SCH (07:56)
[2016-09-13] MEDS: LEVALBUTEROL 1.25 MG/0.5 ML CONCENTRATE NEB INH SCH ×4 (07:56→19:36)
[2016-09-13] MEDS: IPRATROPIUM 0.02% SOLN 0.5MG/2.5 ML NEB INH SCH ×4 (07:56→19:36)
--- NOTE | 2016-09-13 13:19 | IPNPDOC ---
Text Note Date of Service The patient was seen on 09/13/16. NOTE Subjective: Patient seen and examined at bedside. Admits to continued improvement with SOB from 3 days ago with ambulation and states she can ambulate to the bathroom without assistance but gets short of breath when walking around the med/surg unit. She has been decreased to 1L of supplemental oxygen via nasal cannula and her steroids are being tapered. States she has increased sputum production and is coughing up mostly yellow phlegm with some greenish hues appearing last night. Denies headache, fever, chills, dizziness, fainting, chest pain/pressure , SOB at rest, nausea, vomiting, diarrhea, constipation, abdominal pain, neck pain, back pain, hemoptysis, hematochezia, dysuria, hematuria, or weakness in her extremities bilaterally. Complains of some mild edema in her right leg without any pain or redness; she believes this is from sitting and remaining stationary for too long in the hospital. Reports palpitations which she attributes to receiving steroids; her heart rate normally increases during courses of steroids and this feels like it has in the past. Objective: Vitals: T: 97.3 BP: 163/83 RR: 20 P: 99 O2 Saturation: 90% room air General: AAO x 3. Pleasant and cooperative Elderly female. Appears stated age. In NAD. HEENT: Head: normocephalic, atraumatic. Ears: grossly normal hearing bilaterally. Eyes: Sclera are nonicteric. Nose: No external lesions. Neck: Supple. No cervical LAD bilaterally. No thyromegaly. Respiratory: Clear but diminished breath sounds in all lung schultz. Prolonged expiratory phase with some mild scattered end-expiratory wheezing. No observed use of accessory muscles. Speaks in clear sentences. On oxygen via nasal cannula at 1 Liter when examined this AM. Cardiovascular: Tachycardia. No murmurs, rubs or gallops. Abdomen: soft, nontender, nondistended, no hepatosplenomegaly appreciated. Bowel sounds present. Extremities: Trace pitting pretibial edema bilaterally. No asymmetric swelling. No calf tenderness or palpable cords. Musculoskeletal: Normal ROM. Neurological: no focal neurologic deficits appreciated bilaterally Integumentary: skin free from rashes, lesions, abrasions Vascular: +2 dorsalis pedis and radial pulses palpable and symmetrical bilaterally Laboratory data: Please see below. WBC 15.5 from 11.2 and 11.6 Creatinine 1.45 from 1.39 and 1.45 BUN 48 from 48 and 49 Ca 8.6 from 8.4 and 8.7 Microbiology: Blood Cx: No growth after 72 hours Respiratory virus panel: (-) Imaging: CXR: (-) Assessment: 61 yo F is presenting for decompensating COPD exacerbation. Plan: Decompensating COPD Exacerbation: Continue xoponex and ipratropium bromide ( atrovent) as scheduled and PRN. Continue spiriva daily. Continue IV solumedrol with frequency changed from q6h IV to q8h IV. Continue oxygen supplementation to keep sats 88-92 %. Will gradually work on weaning oxygen and steroid therapy as tolerated. CBC showed WBC at 11.2 from 11.6 yesterday. No fevers reported by patient. Resp virus panel was (-). No evidence of acute infection. Will hold off on antibiotics at this time. Offered nicotine patches to help with smoking cessation. Patient declined. CKD: BUN 49 and Cr 1.45 with GFR 39 in stage 3 CKD range. Stable CKD. HTN: Uncontrolled with systolic pressures still in 150s. Continue hydralazine and monitor BPs after medication administration. If still uncontrolled, with consider adding another antihypertensive such as thiazide diuretic as JANENE/ARB will not be beneficial due to CKD. GERD: continue pantoprazole. DM 2: Hyperglycemic with fasting glucose at 393. Most likely 2/2 to steroid tx. Continue ISS at AC and HS and begin to titrate dose. Hold metformin. Anxiety: continue Xanax. Insomnia: continue ambien QHS. Seasonal allergies: PRN claritin. DVT ppx: lovenox Immunizations as per protocol. My preceptor for this patient encounter was Dr. Medina Vides, and was physically present in the building during the encounter and was fully available. As needed, all aspects of the patient interview, examination, medical decision making process, and medical care plan development were reviewed and approved by the preceptor. Preceptor is aware and concurs with the plan as stated in the body of this note and will attest to such by his/her cosignature. VS,Fishbone, I+O VS, Fishbone, I+O Laboratory Tests 09/13/16 05:49 Red Blood Count 4.84, Mean Corpuscular Volume 82.2, Mean Corpuscular Hemoglobin 27.1, Mean Corpuscular Hemoglobin Concent 33.0, Red Cell Distribution Width 14.4 , Calcium Level 8.6 L Vital Signs Date Time Temp Pulse Resp B/P (MAP) Pulse Ox O2 Delivery O2 Flow Rate FiO2 09/13/16 07:56 Nasal Cannula 1.0 09/13/16 06:00 97.3 99 20 163/83 (109 90 I&O- Last 24 Hours up to 6 AM 09/13/16 06:00 Intake Total 2460 ml Output Total 2900 ml Balance -440 ml ZACHERY SULLIVAN OGME-1 Sep 13, 2016 13:19
[2016-09-13 14:00] VITALS: BP 150/70
[2016-09-13] MEDS: zolPIDEM TARTRATE 10MG TAB PO SCH (21:01)
[2016-09-13] MEDS: ATORVASTATIN 20 MG TAB PO SCH (21:02)
[2016-09-13 22:00] VITALS: BP 152/80
[2016-09-14 06:00] VITALS: BP 156/88
[2016-09-14 06:52] LABS: MEAN CORPUSCULAR HEMOGLOBIN 26.4 pg (27.0-33.0); MEAN CORPUSCULAR VOLUME 82.4 fl (80.0-96.0); RED CELL DISTRIBUTION WIDTH 14.4 % (11.5-14.5); WHITE BLOOD COUNT 13.2 K/mm3 (4.0-10.0)
[2016-09-14 07:08] LABS: CALCIUM LEVEL 8.3 MG/DL (8.8-10.2); CREATININE FOR GFR 1.28 MG/DL (0.55-1.02); POTASSIUM SERUM 4.7 MEQ/L (3.5-5.1)
[2016-09-14] MEDS: LEVALBUTEROL 1.25 MG/0.5 ML CONCENTRATE NEB INH SCH ×2 (07:51→11:37)
[2016-09-14] MEDS: TIOTROPIUM INHALER/CAPSULE (SPIRIVA) INH SCH (07:51)
[2016-09-14] MEDS: IPRATROPIUM 0.02% SOLN 0.5MG/2.5 ML NEB INH SCH ×2 (07:51→11:38)
[2016-09-14] MEDS ORDERED: metFORMIN (GLUCOPHAGE) 1000 MG TABLET PO SCH (08:00)
[2016-09-14] MEDS: PANTOPRAZOLE 40MG TAB (PROTONIX) PO SCH (08:04)
[2016-09-14] MEDS: glipiZIDE XL 5 MG TABCR PO SCH (08:04)
[2016-09-14] MEDS: HumaLOG INSULIN (NovoLOG) PER UNIT SC SCH ×2 (08:04→12:37)
[2016-09-14] MEDS: predniSONE 20 MG TAB PO SCH (08:04)
[2016-09-14 08:17] VITALS: BP 148/80
[2016-09-14] MEDS: **hydrALAZINE** 50 MG TAB PO SCH (08:17)
--- NOTE | 2016-09-14 09:38 | IPNPDOC ---
Text Note Date of Service The patient was seen on 09/14/16. NOTE Subjective: Patient seen and examined at bedside. Admits to continued improvement with SOB from 3 days ago with ambulation and states she can ambulate to the bathroom without assistance and does not get short of breath after a lap around the med/ surg unit with 1L supplemental oxygen. She has been decreased to 1L of supplemental oxygen via nasal cannula and her steroids are being tapered. She continues to expectorate yellow sputum but this has decreased since yesterday. Her lower leg and foot edema has decreased since yesterday. Denies headache, fever, chills, dizziness, fainting, chest pain/pressure, SOB at rest, nausea, vomiting, diarrhea, constipation, abdominal pain, neck pain, back pain, hemoptysis, hematochezia, dysuria, hematuria, or weakness in her extremities bilaterally. She states that she is feeling better than she did when she was admitted and could only walk 5 steps before getting short of breath. She is curious when she can go home. Objective: Vitals: T: 97.6 BP: 156/88 RR: 18 P: 107 O2 Saturation: 93% NC 1L General: AAO x 3. Pleasant and cooperative Elderly female. Appears stated age. In NAD. HEENT: Head: normocephalic, atraumatic. Ears: grossly normal hearing bilaterally. Eyes: Sclera are nonicteric. Nose: No external lesions. Neck: Supple. No cervical LAD bilaterally. No thyromegaly. Respiratory: Clear but diminished breath sounds in all lung schultz. Prolonged expiratory phase with some mild scattered end-expiratory wheezing. No observed use of accessory muscles. Speaks in clear sentences. On oxygen via nasal cannula at 1 Liter when examined this AM. Cardiovascular: Tachycardia. No murmurs, rubs or gallops. Abdomen: soft, nontender, nondistended, no hepatosplenomegaly appreciated. Bowel sounds present. Extremities: 1+ pitting pretibial edema bilaterally. No asymmetric swelling. No calf tenderness or palpable cords. Musculoskeletal: Normal ROM. Neurological: no focal neurologic deficits appreciated bilaterally Integumentary: skin free from rashes, lesions, abrasions Vascular: +2 dorsalis pedis and radial pulses palpable and symmetrical bilaterally Laboratory data: Please see below. WBC 13.2 from 15.5 and 9.6 BUN 41 from 48 and 48 Creatinine 1.28 from 1.45 and 1.39 Na 135 from 136 and 135 Ca 8.3 from 8.6 and 8.4 fasting glucose 329 from 338 and 328 Microbiology: Blood Cx: No growth (final) Respiratory virus panel: (-) Imaging: CXR: (-) Assessment: 61 yo F is presenting for decompensating COPD exacerbation. Plan: Decompensating COPD Exacerbation: Continue xoponex and ipratropium bromide ( atrovent) as scheduled and PRN. Continue spiriva daily. Continue IV solumedrol with frequency changed from q6h IV to q8h IV. Continue oxygen supplementation to keep sats 88-92 %. Will gradually work on weaning oxygen and steroid therapy as tolerated. CBC showed WBC at 11.2 from 11.6 yesterday. No fevers reported by patient. Resp virus panel was (-). No evidence of acute infection. Will hold off on antibiotics at this time. Offered nicotine patches to help with smoking cessation. Patient declined. CKD: BUN 49 and Cr 1.45 with GFR 39 in stage 3 CKD range. Stable CKD. HTN: Uncontrolled with systolic pressures still in 150s. Continue hydralazine and monitor BPs after medication administration. If still uncontrolled, with consider adding another antihypertensive such as thiazide diuretic as JANENE/ARB will not be beneficial due to CKD. GERD: continue pantoprazole. DM 2: Hyperglycemic with fasting glucose at 393. Most likely 2/2 to steroid tx. Continue ISS at AC and HS and begin to titrate dose. Hold metformin. Anxiety: continue Xanax. Insomnia: continue ambien QHS. Seasonal allergies: PRN claritin. DVT ppx: lovenox Immunizations as per protocol. My preceptor for this patient encounter was Dr. Medina Vides, and was physically present in the building during the encounter and was fully available. As needed, all aspects of the patient interview, examination, medical decision making process, and medical care plan development were reviewed and approved by the preceptor. Preceptor is aware and concurs with the plan as stated in the body of this note and will attest to such by his/her cosignature. VS,Fishbone, I+O VS, Fishbone, I+O Laboratory Tests 09/14/16 06:34 Red Blood Count 5.10, Mean Corpuscular Volume 82.4, Mean Corpuscular Hemoglobin 26.4 L, Mean Corpuscular Hemoglobin Concent 32.0, Red Cell Distribution Width 14.4, Calcium Level 8.3 L Vital Signs Date Time Temp Pulse Resp B/P (MAP) Pulse Ox O2 Delivery O2 Flow Rate FiO2 09/14/16 09:14 91 Room Air 09/14/16 08:17 148/80 09/14/16 06:00 97.6 107 18 1.0 I&O- Last 24 Hours up to 6 AM 09/14/16 06:00 Intake Total 2340 ml Output Total 1100 ml Balance 1240 ml ZACHERY SULLIVAN OGME-1 Sep 14, 2016 09:38
[2016-09-14] MEDS ORDERED: OCEA0.654 (11:13)
[2016-09-14] MEDS ORDERED: PRED10TA PO (11:13)
[2016-09-14] MEDS ORDERED: GLIP5TAB15 PO (11:13)
[2016-09-14] MEDS ORDERED: BENZ100C5 PO (11:13)
--- NOTE | 2016-09-14 19:47 | DS.PDOC ---
Discharge Summary General Date of Admission September 08, 2016 at 19:42 Discharge Summary PROCEDURES PERFORMED DURING STAY: [None]. ADMITTING DIAGNOSES: 1. . 2. . 3. . DISCHARGE DIAGNOSES: 1. . 2. . 3. . COMPLICATIONS/CHIEF COMPLAINT: Copd Exacerbation. HISTORY OF PRESENT ILLNESS: . HOSPITAL COURSE: . DISCHARGE MEDICATIONS: Please see below. ALLERGIES: Please see below. PHYSICAL EXAMINATION ON DISCHARGE: VITAL SIGNS: Please see below. GENERAL: HEENT: NECK: CARDIOVASCULAR EXAMINATION: RESPIRATORY EXAMINATION: ABDOMINAL EXAMINATION: EXTREMITIES: SKIN: NEUROLOGICAL EXAMINATION: PSYCHIATRIC EXAMINATION: LABORATORY DATA: Please see below. IMAGING: PROGNOSIS: ACTIVITY: [As tolerated]. DIET: . DISCHARGE PLAN: DISPOSITION: Home, Self-Care. DISCHARGE INSTRUCTIONS: 1. . 2. . 3. . ITEMS TO FOLLOWUP ON ON OUTPATIENT: 1. . 2. . 3. . DISCHARGE CONDITION: [Stable]. TIME SPENT ON DISCHARGE: Greater than minutes. Vital Signs/I&Os Vital Signs Date Time Temp Pulse Resp B/P (MAP) Pulse Ox O2 Delivery O2 Flow Rate FiO2 09/14/16 09:30 Room Air 09/14/16 09:14 91 09/14/16 08:17 148/80 09/14/16 06:00 97.6 107 18 1.0 I&O- Last 24 Hours up to 6 AM 09/14/16 06:00 Intake Total 2340 ml Output Total 1100 ml Balance 1240 ml Laboratory Data Labs 24H Laboratory Tests 2 09/14/16 06:34: Anion Gap 6L, Glomerular Filtration Rate 45.0, Blood Urea Nitrogen 41H, Creatinine 1.28H, Sodium Level 135L, Potassium Level 4.7, Chloride Level 98, Carbon Dioxide Level 31, Calcium Level 8.3L CBC/BMP Laboratory Tests 09/14/16 06:34 Red Blood Count 5.10, Mean Corpuscular Volume 82.4, Mean Corpuscular Hemoglobin 26.4 L, Mean Corpuscular Hemoglobin Concent 32.0, Red Cell Distribution Width 14.4, Calcium Level 8.3 L Microbiology Microbiology 09/08/16 Blood Culture - Final, Complete NO GROWTH AFTER 5 DAYS 09/08/16 Blood Culture - Final, Complete NO GROWTH AFTER 5 DAYS 09/08/16 Respiratory Virus Panel (PCR) ([facility]) - Final, Complete Discharge Medications Scheduled (Esomeprazole Magnesium) 40 Mg Cap, 40 MG PO DAILY, (Reported) Albuterol/Ipratropium (Combivent Respimat 20-100 Mcg/Act) 1 Aer Aer, 1 PUFF INH QID, (Reported) Atorvastatin Calcium (Atorvastatin Calcium) 20 Mg Tab, 20 MG PO QHS, (Reported) Glipizide (Glipizide ER) 5 Mg Tab, 10 MG PO BID Please take 1 tab orally 1/2 hour before meals twice daily. Take 1 tablet in the morning and 1 tablet in the evening. Hydralazine HCl (Hydralazine HCl) 50 Mg Tab, 50 MG PO BID, (Reported) Metformin Hydrochloride (Metformin HCl) 1,000 Mg Tab, 1,000 MG PO BIDWM, ( Reported) Prednisone (Prednisone) 10 Mg Tab, 10 MG PO ASDIRECTED Tiotropium [place] Monohydrate (Spiriva Handihaler) 18 Mcg Cap, 1 CAP INH DAILY, (Reported) Zolpidem Tartrate (Zolpidem Tartrate) 10 Mg Tab, 10 MG PO QHS, (Reported) Scheduled PRN Alprazolam (Alprazolam) 0.25 Mg Tab, 0.25 MG PO DAILY PRN for ANXIETY, (Reported ) Benzonatate (Benzonatate) 100 Mg Cap, 100 MG PO TIDP PRN for COUGH Loratadine (Loratadine) 10 Mg Tab, 10 MG PO DAILY PRN for allergies, (Reported) Sodium Chloride ([place] Nasal [place]) 0.65 % Spr, 2 SPRAY NA Q2HP PRN for NASAL DRYNESS 2 sprays in each nostril as needed every 2 hours. Allergies Coded Allergies: Cefuroxime (Verified Allergy, Intermediate, dyspnea/hives, 08/29/16) Penicillins (Verified Allergy, Mild, RASH, 08/29/16) ZACHERY SULLIVAN OGME-1 Sep 14, 2016 19:47
== END 2016-09-14 13:05 | disposition home or self-care (01) | DRG 140 ==
LOC: M ED 17:00 → M ED INP 19:42 → M MSPAV 20:54
PROVIDERS: ADMIT Internal Medicine; ATTEND Hospitalist
DX: J44.1 Chronic obstructive pulmonary disease with (acute) exacerbation (principal); J96.01 Acute respiratory failure with hypoxia; E11.65 Type 2 diabetes mellitus with hyperglycemia; N18.3 Chronic kidney disease, stage 3 (moderate); K21.9 Gastro-esophageal reflux disease without esophagitis; F17.210 Nicotine dependence, cigarettes, uncomplicated; E78.5 Hyperlipidemia, unspecified; I12.9 Hypertensive chronic kidney disease with stage 1 through stage 4 chronic kidney disease, or unspecified chronic kidney disease; G47.00 Insomnia, unspecified; Z88.0 Allergy status to penicillin; Z88.8 Allergy status to other drugs, medicaments and biological substances; Z79.899 Other long term (current) drug therapy; F41.9 Anxiety disorder, unspecified

== ENCOUNTER → 2016-11-02 | Outpatient (REF) | payer BC ==
[~2016-11-02] MED LIST changes: +BENZ100C5 PO; +GLIP1TAB49 PO; +HYDR-3911 PO; +IBUP40TA PO; +LORA10TA2 PO; -METF1000 PO; +METF10004 PO; +OCEA0.654; -PRED10TA PO; +PRED10TA2 PO
[2016-11-07 08:06] LABS: FREE CORTISOL 24HR URINE 15 ug/24 hr (0-50); FREE CORTISOL URINE 15 ug/L (Undefined)
[2016-11-08 00:09] LABS: ALDOSTERONE 8.5 ng/dL (0.0-30.0)
== END ==
LOC: M LABDRAW1 13:19
PROVIDERS: ATTEND Internal Medicine Endocrinology, Diabetes & Metabolism
DX: D35.01 Benign neoplasm of right adrenal gland (principal)

== ENCOUNTER → 2016-12-09 | Outpatient (REF) | payer BC ==
[2016-12-09 21:58] LABS: CREATININE FOR GFR 1.38 MG/DL (0.55-1.02); GLOMERULAR FILTRATION RATE 41.2 (>45)
== END ==
LOC: M LAB REF 14:05
PROVIDERS: ATTEND Internal Medicine Pulmonary Disease
DX: J43.1 Panlobular emphysema (principal)

== ENCOUNTER → 2016-12-17 | Outpatient (CLI) | payer BC ==
[~2016-12-17] MED LIST changes: +ISOVUE-370 76% 100ML VIAL (Q9967) As Ordered ONE
--- NOTE | 2016-12-17 14:32 | REP ---
Clinical: Dyspnea. Technique: Axial contrast enhanced images from the thoracic inlet to the upper abdomen using 100 ml Isovue 370 intravenous contrast material with coronal and sagittal re-formations. Comparison: 08/31/2016, 08/12/2008. Findings: Mild to moderate diffuse COPD and emphysematous changes are appreciated with infrahilar bronchiectasis and minimal scattered scarring. No consolidation, significant nodule, or mass lesion. No pleural effusion/reaction or pneumothorax. Tracheobronchial tree is patent. Mediastinum demonstrates moderate atherosclerotic changes to the coronary arteries and thoracic aorta without aortic aneurysm/dissection, cardiomegaly or pericardial effusion. No significant adenopathy. Musculoskeletal structures are intact. Impression: Chronic COPD and scattered scarring. No acute mediastinal or pleuroparenchymal process appreciated. Signed by Jamin Guaman MD 12/17/2016 02:24 P
== END ==
LOC: M RAD 13:36
PROVIDERS: ATTEND Internal Medicine Pulmonary Disease
DX: R91.8 Other nonspecific abnormal finding of lung field (principal); J44.9 Chronic obstructive pulmonary disease, unspecified
CPT/HCPCS: 71260; Q9967

== ENCOUNTER → 2017-03-28 | Outpatient (REF) | payer BC ==
[~2017-03-28] MED LIST changes: -ISOVUE-370 76% 100ML VIAL (Q9967) As Ordered ONE
[2017-03-28 14:10] LABS: BASO # 0.1 10^3/uL (0.0-0.2); BASO % 0.7 % (0.0-1.0); EOS # 0.2 10^3/uL (0.0-0.50); IMMATURE GRANULOCYTE % 0.4 % (0-0); LYMPH # 2.2 10^3/uL (1.5-4.5); LYMPH % 29.8 % (24.0-44.0); MEAN CORPUSCULAR HEMOGLOBIN 25.9 pg (27.0-33.0); MEAN CORPUSCULAR HGB CONC 30.9 g/dl (32.0-36.5); MEAN CORPUSCULAR VOLUME 83.7 fl (80.0-96.0); MONO # 0.5 10^3/uL (0.0-0.8); MONO % 6.4 % (0.0-5.0); NEUTROPHILS # 4.5 10^3/uL (1.8-7.7); NEUTROPHILS % 60.7 % (36.0-66.0); PLATELET COUNT, AUTOMATED 238 10^3/uL (150-450); RED CELL DISTRIBUTION WIDTH 14.6 % (11.5-14.5); WHITE BLOOD COUNT 7.4 10^3/uL (4.0-10.0)
[2017-03-28 15:13] LABS: BILIRUBIN,TOTAL 0.2 MG/DL (0.2-1.0); CALCIUM LEVEL 8.5 MG/DL (8.8-10.2); CREATININE FOR GFR 1.2 MG/DL (0.55-1.02); GLOMERULAR FILTRATION RATE 48.5 (>45); POTASSIUM SERUM 4.3 MEQ/L (3.5-5.1)
[2017-03-28 15:14] LABS: ALBUMIN 3.3 GM/DL (3.2-5.2); FREE T4 1.18 NG/DL (0.76-1.46); TOTAL PROTEIN 6.6 GM/DL (6.4-8.2)
== END ==
LOC: M LABDRAW1 11:27
PROVIDERS: ATTEND Nurse Practitioner Adult Health
DX: E78.00 Pure hypercholesterolemia, unspecified (principal); E11.65 Type 2 diabetes mellitus with hyperglycemia; D50.9 Iron deficiency anemia, unspecified; Z79.899 Other long term (current) drug therapy; E55.9 Vitamin D deficiency, unspecified

== ENCOUNTER → 2018-01-19 | Outpatient (CLI) | payer BC ==
[2018-01-19 15:32] LABS: ANION GAP 7 MEQ/L (8-16); BLOOD UREA NITROGEN 27 MG/DL (7-18); CALCIUM LEVEL 8.9 MG/DL (8.8-10.2); CARBON DIOXIDE LEVEL 29 MEQ/L (21-32); CHLORIDE LEVEL 106 MEQ/L (98-107); CREATININE FOR GFR 1.16 MG/DL (0.55-1.30); GLOMERULAR FILTRATION RATE 50.2 (>45); GLUCOSE, FASTING 102 MG/DL (70-100); POTASSIUM SERUM 5.1 MEQ/L (3.5-5.1); SODIUM LEVEL 142 MEQ/L (136-145)
== END ==
LOC: M LAB 13:55
DX: D35.01 Benign neoplasm of right adrenal gland (principal)
CPT/HCPCS: 80048

== ENCOUNTER → 2018-01-23 | Outpatient (CLI) | payer BC ==
[~2018-01-23] MED LIST changes: -ALPR0.25 PO; -ATOR1TAB21 PO; -BENZ100C5 PO; -COMBAER6 INH; -ESOM1CAP5 PO; +GASTROGRAFIN SOLUTION 30ML (Q9963) As Ordered; -GLIP1TAB49 PO; -HYDR-3911 PO; -IBUP40TA PO; -IRBE150T12; -ISOS40TASA PO; +ISOVUE-370 76% 100ML VIAL (Q9967) As Ordered; -LORA10TA2 PO; -METF10004 PO; -OCEA0.654; -PRED10TA2 PO; -SPIR1CAP INH; -ZOLP10TA2 PO
== END ==
LOC: M RAD 10:51
DX: D35.01 Benign neoplasm of right adrenal gland (principal)
CPT/HCPCS: Q9963

== ENCOUNTER 2018-02-14 20:55 | Emergency (ER) | payer BC ==
[2018-02-14] MEDS: ONDANSETRON 4 MG ORAL DISINTEGRATING TAB (Q0162 PER 1MG) PO ×2 (22:29→22:33)
[2018-02-14] MEDS: MORPHINE 2 MG/ML 1ML SYRINGE (J2270) SC ×2 (22:29→22:34)
[2018-02-14] MEDS: NORCO, ANEXSIA 5/325MG TABLET (HYDROcodone/ACETAMINOPHEN) PO (23:00)
[2018-02-14] MEDS: NORCO 5/325MG TABLET (BULK FOR ED) PO (23:15)
== END 2018-02-14 23:33 | disposition home or self-care (01) ==
LOC: M ED 20:55
DX: S52.531A Colles' fracture of right radius, initial encounter for closed fracture (principal); S70.01XA Contusion of right hip, initial encounter; W10.8XXA Fall (on) (from) other stairs and steps, initial encounter; Y92.22 Religious institution as the place of occurrence of the external cause; E11.9 Type 2 diabetes mellitus without complications; J44.9 Chronic obstructive pulmonary disease, unspecified; M19.90 Unspecified osteoarthritis, unspecified site; Z87.891 Personal history of nicotine dependence; Z88.0 Allergy status to penicillin; Z88.1 Allergy status to other antibiotic agents; Z79.899 Other long term (current) drug therapy; Z79.84 Long term (current) use of oral hypoglycemic drugs
CPT/HCPCS: 73110

== ENCOUNTER 2018-02-16 09:55 | Inpatient (IN) | payer BC ==
[2018-02-16 10:30] LABS: ABG BASE EXCESS 2.5 (-2.0-2.0); ABG HCO3 26.8 MEQ/L (22.0-26.0); ABG O2 SATURATION 93.6 % (95.0-99.0); ABG PARTIAL PRESSURE CO2 40.3 mmHg (35.0-45.0); ABG PARTIAL PRESSURE O2 61.4 mmHg (75.0-100.0); ABG STANDARD HCO3 26.6 MEQ/L (22.0-26.0)
[2018-02-16] MEDS: methylPREDNISolone INJ 125 MG/2 ML VIAL (J2930) IV ×2 (10:48→20:09)
[2018-02-16 10:49] LABS: BASO % 0.4 % (0.0-1.0); EOS # 0.1 10^3/uL (0.0-0.50); EOS % 1.2 % (0.0-3.0); HEMOGLOBIN 11.8 g/dl (12.0-15.5); IMMATURE GRANULOCYTE % 0.5 % (0-3.0); LYMPH # 1.8 10^3/uL (1.5-4.5); LYMPH % 17.7 % (24.0-44.0); MEAN CORPUSCULAR HEMOGLOBIN 26.3 pg (27.0-33.0); MEAN CORPUSCULAR HGB CONC 30.3 g/dl (32.0-36.5); MEAN CORPUSCULAR VOLUME 86.9 fl (80.0-96.0); MONO # 0.7 10^3/uL (0.0-0.8); MONO % 7.3 % (0.0-5.0); NEUTROPHILS # 7.4 10^3/uL (1.8-7.7); NEUTROPHILS % 72.9 % (36.0-66.0); PLATELET COUNT, AUTOMATED 208 10^3/uL (150-450); RED BLOOD COUNT 4.49 10^6/uL (4.00-5.40); RED CELL DISTRIBUTION WIDTH 14.3 % (11.5-14.5); WHITE BLOOD COUNT 10.1 10^3/uL (4.0-10.0)
[2018-02-16] MEDS: IPRATROPIUM 0.5MG/ALBUTEROL 2.5MG INH SOL UD 3ML (DUONEB)(J7620) NEB ×5 (10:50→20:00)
[2018-02-16 10:57] LABS: INR 0.99; PROTHROMBIN TIME 13.2 SECONDS (12.1-14.4)
[2018-02-16 11:17] LABS: LACTIC ACID SEPSIS PROTOCOL 1.1 MMOL/L (0.4-2.0)
[2018-02-16 11:26] LABS: ALBUMIN 3.4 GM/DL (3.2-5.2); ALBUMIN/GLOBULIN RATIO 1.13 (1.00-1.93); ALKALINE PHOSPHATASE 104 U/L (45-117); ALT/SGPT 15 U/L (12-78); ANION GAP 6 MEQ/L (8-16); AST/SGOT 9 U/L (7-37); BILIRUBIN,DIRECT 0.1 MG/DL (0.0-0.2); BILIRUBIN,TOTAL 0.5 MG/DL (0.2-1.0); BLOOD UREA NITROGEN 22 MG/DL (7-18); CALCIUM LEVEL 8.8 MG/DL (8.8-10.2); CARBON DIOXIDE LEVEL 30 MEQ/L (21-32); CHLORIDE LEVEL 101 MEQ/L (98-107); CPK CREATINE PHOSPHOKINASE 54 U/L (26-192); CREATININE FOR GFR 1.14 MG/DL (0.55-1.30); GLOMERULAR FILTRATION RATE 51.2 (>45); GLUCOSE, FASTING 173 MG/DL (70-100); MB/CK RELATIVE INDEX 2.22 (< OR =4); NT-PRO BNP 1150 PG/ML (<125); POTASSIUM SERUM 4.7 MEQ/L (3.5-5.1); SODIUM LEVEL 137 MEQ/L (136-145); THYROID STIMULATING HORMONE 0.309 uIU/ML (0.358-3.740); TOTAL PROTEIN 6.4 GM/DL (6.4-8.2); TROPONIN I < 0.02 NG/ML (< 0.10)
[2018-02-16] MEDS ORDERED: ISOVUE-370 76% 100ML VIAL (Q9967) As Ordered (14:05)
[2018-02-16] MEDS ORDERED: GLUCOSE 4 GM CHEW TABLET PO (15:30)
[2018-02-16] MEDS ORDERED: GLUCAGON FOR INJ 1 MG VIAL (J1610) SC (15:30)
[2018-02-16] MEDS ORDERED: DEXTROSE 50% 50 ML SYRINGE IV (15:30)
[2018-02-16] MEDS: ACETAMINOPHEN TAB 650MG DOSE (2X325MG) PO (15:42)
[2018-02-16] MEDS ORDERED: ENOXAPARIN 30 MG/0.3 ML SYR (J1650) SC (18:00)
[2018-02-16 18:37] LABS: CPK CREATINE PHOSPHOKINASE 48 U/L (26-192); MB/CK RELATIVE INDEX 2.29 (< OR =4); TROPONIN I < 0.02 NG/ML (< 0.10)
[2018-02-16] MEDS: SODIUM CHLORIDE HYPERTONIC 3% 15ML NEB SOL NEB (18:42)
[2018-02-16] MEDS: HumaLOG INSULIN (NovoLOG) PER UNIT SC ×2 (18:44→20:46)
[2018-02-16] MEDS: MIRTAZAPINE 15 MG TAB PO (20:10)
[2018-02-16] MEDS: traZODone 50 MG TAB PO (20:10)
[2018-02-16 20:18] LABS: BEDSIDE GLUCOSE 374 MG/DL (80-115)
[2018-02-16] MEDS: EZETIMIBE 10 MG TAB (ZETIA) PO (20:46)
[2018-02-16] MEDS: SIMVASTATIN 40 MG TAB PO (20:46)
[2018-02-16] MEDS: HEPARIN SOD (PORCINE) 5000 UNITS/ML VIAL SQ (21:13)
[2018-02-17] MEDS: IPRATROPIUM 0.5MG/ALBUTEROL 2.5MG INH SOL UD 3ML (DUONEB)(J7620) NEB ×4 (02:00→19:35)
[2018-02-17 02:41] LABS: CK-MB VALUE MASS < 1.0 NG/ML (<3.6); CPK CREATINE PHOSPHOKINASE 36 U/L (26-192); MB/CK RELATIVE INDEX 2.78 (< OR =4); TROPONIN I < 0.02 NG/ML (< 0.10)
[2018-02-17] MEDS: methylPREDNISolone INJ 125 MG/2 ML VIAL (J2930) IV (03:51)
[2018-02-17] MEDS: HEPARIN SOD (PORCINE) 5000 UNITS/ML VIAL SQ ×3 (05:19→21:01)
[2018-02-17 05:40] LABS: BASO % 0.2 % (0.0-1.0); HEMATOCRIT 34.7 % (36.0-47.0); HEMOGLOBIN 10.8 g/dl (12.0-15.5); IMMATURE GRANULOCYTE % 0.7 % (0-3.0); LYMPH # 1.5 10^3/uL (1.5-4.5); LYMPH % 23.7 % (24.0-44.0); MEAN CORPUSCULAR HEMOGLOBIN 26.7 pg (27.0-33.0); MEAN CORPUSCULAR HGB CONC 31.1 g/dl (32.0-36.5); MEAN CORPUSCULAR VOLUME 85.9 fl (80.0-96.0); MONO # 0.3 10^3/uL (0.0-0.8); MONO % 4.4 % (0.0-5.0); NEUTROPHILS # 4.4 10^3/uL (1.8-7.7); PLATELET COUNT, AUTOMATED 192 10^3/uL (150-450); RED BLOOD COUNT 4.04 10^6/uL (4.00-5.40); RED CELL DISTRIBUTION WIDTH 13.9 % (11.5-14.5); WHITE BLOOD COUNT 6.1 10^3/uL (4.0-10.0)
[2018-02-17 06:11] LABS: ALBUMIN 2.8 GM/DL (3.2-5.2); ALKALINE PHOSPHATASE 89 U/L (45-117); ALT/SGPT 15 U/L (12-78); ANION GAP 6 MEQ/L (8-16); AST/SGOT 7 U/L (7-37); BILIRUBIN,TOTAL 0.3 MG/DL (0.2-1.0); BLOOD UREA NITROGEN 36 MG/DL (7-18); CALCIUM LEVEL 8.7 MG/DL (8.8-10.2); CARBON DIOXIDE LEVEL 28 MEQ/L (21-32); CHLORIDE LEVEL 101 MEQ/L (98-107); GLUCOSE, FASTING 296 MG/DL (70-100); SODIUM LEVEL 135 MEQ/L (136-145); T UPTAKE 36 % (30-39); THYROID STIMULATING HORMONE 0.085 uIU/ML (0.358-3.740); THYROXINE (T4) 8.4 UG/DL (4.5-12.0); TOTAL PROTEIN 6.3 GM/DL (6.4-8.2)
[2018-02-17] MEDS: PANTOPRAZOLE 40MG INJ (PROTONIX) (C9113) IV (08:24)
[2018-02-17] MEDS: HumaLOG INSULIN (NovoLOG) PER UNIT SC ×4 (08:24→21:01)
[2018-02-17] MEDS: IRBESARTAN 150 MG TAB PO (08:25)
[2018-02-17] MEDS: SODIUM CHLORIDE HYPERTONIC 3% 15ML NEB SOL NEB (10:30)
[2018-02-17 10:41] LABS: CK-MB VALUE MASS < 1.0 NG/ML (<3.6); CPK CREATINE PHOSPHOKINASE 35 U/L (26-192); MB/CK RELATIVE INDEX 2.86 (< OR =4); TROPONIN I < 0.02 NG/ML (< 0.10)
[2018-02-17] MEDS: guaiFENesin ER 600 MG TAB PO ×2 (11:04→20:41)
[2018-02-17] MEDS: ACETAMINOPHEN TAB 650MG DOSE (2X325MG) PO ×2 (11:04→20:23)
[2018-02-17 12:01] LABS: BEDSIDE GLUCOSE 342 MG/DL (80-115)
[2018-02-17] MEDS: AZITHROMYCIN 250 MG TAB PO (12:14)
[2018-02-17] MEDS: methylPREDNISolone INJ 40 MG/1 ML VIAL (J2920) IV (14:49)
[2018-02-17 16:51] LABS: BEDSIDE GLUCOSE 387 MG/DL (80-115)
[2018-02-17] MEDS: SIMVASTATIN 40 MG TAB PO (20:41)
[2018-02-17] MEDS: traZODone 50 MG TAB PO (20:41)
[2018-02-17] MEDS: MIRTAZAPINE 15 MG TAB PO (20:41)
[2018-02-17] MEDS: EZETIMIBE 10 MG TAB (ZETIA) PO (20:41)
[2018-02-17 20:48] LABS: BEDSIDE GLUCOSE 333 MG/DL (80-115)
[2018-02-18] MEDS: IPRATROPIUM 0.5MG/ALBUTEROL 2.5MG INH SOL UD 3ML (DUONEB)(J7620) NEB ×4 (02:53→20:11)
[2018-02-18] MEDS: methylPREDNISolone INJ 40 MG/1 ML VIAL (J2920) IV ×2 (03:01→15:41)
[2018-02-18 05:36] LABS: HEMATOCRIT 33.7 % (36.0-47.0); HEMOGLOBIN 10.4 g/dl (12.0-15.5); IMMATURE GRANULOCYTE % 0.6 % (0-3.0); LYMPH # 1.5 10^3/uL (1.5-4.5); LYMPH % 15.4 % (24.0-44.0); MEAN CORPUSCULAR HEMOGLOBIN 26.2 pg (27.0-33.0); MEAN CORPUSCULAR HGB CONC 30.9 g/dl (32.0-36.5); MEAN CORPUSCULAR VOLUME 84.9 fl (80.0-96.0); MONO # 0.6 10^3/uL (0.0-0.8); MONO % 6.3 % (0.0-5.0); NEUTROPHILS # 7.6 10^3/uL (1.8-7.7); NEUTROPHILS % 77.7 % (36.0-66.0); PLATELET COUNT, AUTOMATED 231 10^3/uL (150-450); RED BLOOD COUNT 3.97 10^6/uL (4.00-5.40); RED CELL DISTRIBUTION WIDTH 13.9 % (11.5-14.5); WHITE BLOOD COUNT 9.8 10^3/uL (4.0-10.0)
[2018-02-18 06:06] LABS: ALBUMIN 2.8 GM/DL (3.2-5.2); ALBUMIN/GLOBULIN RATIO 0.88 (1.00-1.93); ALKALINE PHOSPHATASE 82 U/L (45-117); ALT/SGPT 15 U/L (12-78); ANION GAP 8 MEQ/L (8-16); AST/SGOT 5 U/L (7-37); BILIRUBIN,TOTAL 0.2 MG/DL (0.2-1.0); BLOOD UREA NITROGEN 51 MG/DL (7-18); C REACTIVE PROTEIN QUANTITATIV 6.36 MG/DL (0.00-0.30); CALCIUM LEVEL 8.2 MG/DL (8.8-10.2); CARBON DIOXIDE LEVEL 27 MEQ/L (21-32); CHLORIDE LEVEL 101 MEQ/L (98-107); CREATININE FOR GFR 1.43 MG/DL (0.55-1.30); GLOMERULAR FILTRATION RATE 39.5 (>45); GLUCOSE, FASTING 379 MG/DL (70-100); POTASSIUM SERUM 4.9 MEQ/L (3.5-5.1); SODIUM LEVEL 136 MEQ/L (136-145)
[2018-02-18] MEDS: HEPARIN SOD (PORCINE) 5000 UNITS/ML VIAL SQ ×3 (06:11→21:02)
[2018-02-18] MEDS: ACETAMINOPHEN TAB 650MG DOSE (2X325MG) PO ×3 (06:13→20:39)
[2018-02-18] MEDS: HumaLOG INSULIN (NovoLOG) PER UNIT SC ×4 (07:41→21:03)
[2018-02-18] MEDS: AZITHROMYCIN 250 MG TAB PO (08:50)
[2018-02-18] MEDS: PANTOPRAZOLE 40MG INJ (PROTONIX) (C9113) IV (08:50)
[2018-02-18] MEDS: guaiFENesin ER 600 MG TAB PO ×2 (08:50→20:38)
[2018-02-18] MEDS: IRBESARTAN 150 MG TAB PO (08:50)
[2018-02-18] MEDS: NS 1,000 ML IV (08:51)
[2018-02-18 12:44] LABS: BEDSIDE GLUCOSE 367 MG/DL (80-115)
[2018-02-18 17:28] LABS: BEDSIDE GLUCOSE 242 MG/DL (80-115)
[2018-02-18 20:38] LABS: BEDSIDE GLUCOSE 310 MG/DL (80-115)
[2018-02-18] MEDS: MIRTAZAPINE 15 MG TAB PO (20:39)
[2018-02-18] MEDS: EZETIMIBE 10 MG TAB (ZETIA) PO (20:39)
[2018-02-18] MEDS: traZODone 50 MG TAB PO (20:39)
[2018-02-18] MEDS: SIMVASTATIN 40 MG TAB PO (20:39)
[2018-02-19] MEDS: IPRATROPIUM 0.5MG/ALBUTEROL 2.5MG INH SOL UD 3ML (DUONEB)(J7620) NEB ×4 (02:00→20:46)
[2018-02-19] MEDS: methylPREDNISolone INJ 40 MG/1 ML VIAL (J2920) IV (03:47)
[2018-02-19] MEDS: ACETAMINOPHEN TAB 650MG DOSE (2X325MG) PO ×4 (03:47→20:34)
[2018-02-19 04:59] LABS: BASO % 0.2 % (0.0-1.0); EOS % 0.1 % (0.0-3.0); HEMOGLOBIN 10.6 g/dl (12.0-15.5); IMMATURE GRANULOCYTE % 1.1 % (0-3.0); LYMPH # 2.5 10^3/uL (1.5-4.5); LYMPH % 28.8 % (24.0-44.0); MEAN CORPUSCULAR HEMOGLOBIN 26.5 pg (27.0-33.0); MEAN CORPUSCULAR HGB CONC 30.3 g/dl (32.0-36.5); MEAN CORPUSCULAR VOLUME 87.5 fl (80.0-96.0); MONO # 0.7 10^3/uL (0.0-0.8); MONO % 7.9 % (0.0-5.0); NEUTROPHILS # 5.4 10^3/uL (1.8-7.7); NEUTROPHILS % 61.9 % (36.0-66.0); PLATELET COUNT, AUTOMATED 228 10^3/uL (150-450); RED CELL DISTRIBUTION WIDTH 14.2 % (11.5-14.5); WHITE BLOOD COUNT 8.8 10^3/uL (4.0-10.0)
[2018-02-19 05:24] LABS: ALBUMIN 2.7 GM/DL (3.2-5.2); ALBUMIN/GLOBULIN RATIO 0.82 (1.00-1.93); ALKALINE PHOSPHATASE 81 U/L (45-117); ALT/SGPT 19 U/L (12-78); ANION GAP 6 MEQ/L (8-16); AST/SGOT 8 U/L (7-37); BILIRUBIN,TOTAL 0.3 MG/DL (0.2-1.0); BLOOD UREA NITROGEN 50 MG/DL (7-18); C REACTIVE PROTEIN QUANTITATIV 2.86 MG/DL (0.00-0.30); CALCIUM LEVEL 7.9 MG/DL (8.8-10.2); CARBON DIOXIDE LEVEL 27 MEQ/L (21-32); CHLORIDE LEVEL 106 MEQ/L (98-107); CREATININE FOR GFR 1.31 MG/DL (0.55-1.30); GLOMERULAR FILTRATION RATE 43.7 (>45); GLUCOSE, FASTING 239 MG/DL (70-100); POTASSIUM SERUM 4.8 MEQ/L (3.5-5.1); SODIUM LEVEL 139 MEQ/L (136-145)
[2018-02-19] MEDS: HEPARIN SOD (PORCINE) 5000 UNITS/ML VIAL SQ ×3 (06:25→20:37)
[2018-02-19] MEDS: PANTOPRAZOLE 40MG INJ (PROTONIX) (C9113) IV (08:09)
[2018-02-19] MEDS: HumaLOG INSULIN (NovoLOG) PER UNIT SC ×4 (08:09→21:00)
[2018-02-19] MEDS: guaiFENesin ER 600 MG TAB PO ×2 (08:10→20:36)
[2018-02-19] MEDS: predniSONE 10 MG TAB PO (08:10)
[2018-02-19] MEDS: AZITHROMYCIN 250 MG TAB PO (08:11)
[2018-02-19] MEDS: IRBESARTAN 150 MG TAB PO (08:11)
[2018-02-19] MEDS ORDERED: CEPACOL LOZENGE PO (08:30)
[2018-02-19] MEDS ORDERED: BISACODYL 10 MG SUPP PR (08:30)
[2018-02-19] MEDS: SENOKOT S TAB PO ×2 (10:25→20:37)
[2018-02-19] MEDS: MIRALAX *UNIT DOSE* 17GM PACKET PO (10:25)
[2018-02-19 12:53] LABS: BEDSIDE GLUCOSE 340 MG/DL (80-115)
[2018-02-19 17:01] LABS: BEDSIDE GLUCOSE 395 MG/DL (80-115)
[2018-02-19] MEDS: EZETIMIBE 10 MG TAB (ZETIA) PO (20:36)
[2018-02-19] MEDS: traZODone 50 MG TAB PO (20:36)
[2018-02-19] MEDS: MIRTAZAPINE 15 MG TAB PO (20:36)
[2018-02-19] MEDS: SIMVASTATIN 40 MG TAB PO (20:36)
[2018-02-19 20:44] LABS: BEDSIDE GLUCOSE 202 MG/DL (80-115)
[2018-02-20] MEDS: PERCOCET 5MG/325MG TAB PO ×3 (00:42→17:18)
[2018-02-20] MEDS: diphenhydrAMINE INJ 50MG/ML VIAL (J1200) IV (00:42)
[2018-02-20] MEDS: IPRATROPIUM 0.5MG/ALBUTEROL 2.5MG INH SOL UD 3ML (DUONEB)(J7620) NEB ×5 (02:00→22:17)
[2018-02-20] MEDS: ACETAMINOPHEN TAB 650MG DOSE (2X325MG) PO (03:05)
[2018-02-20] MEDS: MORPHINE 4 MG/ML 1ML VIAL/SYRINGE (J2270) IV ×4 (03:29→21:40)
[2018-02-20 05:14] LABS: BASO % 0.1 % (0.0-1.0); EOS % 0.1 % (0.0-3.0); HEMATOCRIT 37.4 % (36.0-47.0); HEMOGLOBIN 11.7 g/dl (12.0-15.5); IMMATURE GRANULOCYTE % 0.4 % (0-3.0); LYMPH # 2.3 10^3/uL (1.5-4.5); LYMPH % 17.2 % (24.0-44.0); MEAN CORPUSCULAR HGB CONC 31.3 g/dl (32.0-36.5); MEAN CORPUSCULAR VOLUME 86.2 fl (80.0-96.0); MONO # 0.7 10^3/uL (0.0-0.8); MONO % 5.3 % (0.0-5.0); NEUTROPHILS # 10.4 10^3/uL (1.8-7.7); NEUTROPHILS % 76.9 % (36.0-66.0); PLATELET COUNT, AUTOMATED 240 10^3/uL (150-450); RED BLOOD COUNT 4.34 10^6/uL (4.00-5.40); RED CELL DISTRIBUTION WIDTH 14.2 % (11.5-14.5); WHITE BLOOD COUNT 13.5 10^3/uL (4.0-10.0)
[2018-02-20] MEDS: HEPARIN SOD (PORCINE) 5000 UNITS/ML VIAL SQ ×3 (05:16→21:26)
[2018-02-20 05:52] LABS: ALBUMIN 2.8 GM/DL (3.2-5.2); ALBUMIN/GLOBULIN RATIO 0.93 (1.00-1.93); ALKALINE PHOSPHATASE 84 U/L (45-117); ALT/SGPT 27 U/L (12-78); ANION GAP 7 MEQ/L (8-16); AST/SGOT 10 U/L (7-37); BILIRUBIN,TOTAL 0.5 MG/DL (0.2-1.0); BLOOD UREA NITROGEN 42 MG/DL (7-18); CALCIUM LEVEL 8.2 MG/DL (8.8-10.2); CARBON DIOXIDE LEVEL 26 MEQ/L (21-32); CHLORIDE LEVEL 104 MEQ/L (98-107); CREATININE FOR GFR 1.46 MG/DL (0.55-1.30); GLOMERULAR FILTRATION RATE 38.5 (>45); GLUCOSE, FASTING 298 MG/DL (70-100); MAGNESIUM LEVEL 1.8 MG/DL (1.8-2.4); POTASSIUM SERUM 5.2 MEQ/L (3.5-5.1); SODIUM LEVEL 137 MEQ/L (136-145); TOTAL PROTEIN 5.8 GM/DL (6.4-8.2)
[2018-02-20] MEDS: NS 500 ML IV ×2 (07:45→13:30)
[2018-02-20] MEDS: methylPREDNISolone INJ 40 MG/1 ML VIAL (J2920) IV ×2 (08:05→19:55)
[2018-02-20] MEDS ORDERED: MEROPENEM INJ 1 GM in APPROPRIATE DILUENT 1 EA IV (08:15)
[2018-02-20 08:31] LABS: ABG BASE EXCESS -0.8 (-2.0-2.0); ABG HCO3 26.2 MEQ/L (22.0-26.0); ABG PARTIAL PRESSURE CO2 53.7 mmHg (35.0-45.0); ABG PARTIAL PRESSURE O2 106.1 mmHg (75.0-100.0); ABG STANDARD HCO3 23.8 MEQ/L (22.0-26.0); ABG TOTAL CO2 27.9 MEQ/L (23.0-31.0); ABG pH (ARTERIAL) 7.307 UNITS (7.350-7.450)
[2018-02-20] MEDS: HumaLOG INSULIN (NovoLOG) PER UNIT SC ×4 (08:42→21:00)
[2018-02-20] MEDS: PANTOPRAZOLE 40MG INJ (PROTONIX) (C9113) IV (08:42)
[2018-02-20] MEDS: SENOKOT S TAB PO ×2 (08:42→21:25)
[2018-02-20] MEDS: MIRALAX *UNIT DOSE* 17GM PACKET PO (08:43)
[2018-02-20] MEDS: guaiFENesin ER 600 MG TAB PO ×2 (08:43→21:25)
[2018-02-20] MEDS ORDERED: ISOVUE-370 76% 100ML VIAL (Q9967) As Ordered (08:53)
[2018-02-20] MEDS ORDERED: AZITHROMYCIN 250 MG TAB PO (09:00)
[2018-02-20] MEDS ORDERED: VANCOMYCIN HCL 1,000 MG, VIAL MATE ADAPTER 1 EACH in D5W 250 ML IV (10:00)
[2018-02-20] MEDS ORDERED: ALBUTEROL SULFATE 2.5 MG/0.5 ML INH NEB SOLN NEB (10:30)
[2018-02-20] MEDS ORDERED: VANCOMYCIN HCL 750 MG, VIAL MATE ADAPTER 1 EACH in D5W 250 ML IV (11:00)
[2018-02-20 11:05] LABS: CPK CREATINE PHOSPHOKINASE 47 U/L (26-192); MB/CK RELATIVE INDEX 2.77 (< OR =4); TROPONIN I < 0.02 NG/ML (< 0.10)
[2018-02-20] MEDS: VANCOMYCIN HCL 1,000 MG, VIAL MATE ADAPTER 1 EACH in D5W 250 ML IV ×2 (11:14→23:15)
[2018-02-20] MEDS ORDERED: SODIUM CHLORIDE HYPERTONIC 3% 15ML NEB SOL INH (11:15)
[2018-02-20 11:19] LABS: BEDSIDE GLUCOSE 204 MG/DL (80-115)
[2018-02-20] MEDS: VANCOMYCIN HCL 750 MG, VIAL MATE ADAPTER 1 EACH in D5W 250 ML IV (12:17)
[2018-02-20 12:22] LABS: LACTIC ACID SEPSIS PROTOCOL 1.9 MMOL/L (0.4-2.0)
[2018-02-20] MEDS: SYMBICORT 160/4.5MCG INHALER 6GM INH ×2 (12:27→19:49)
[2018-02-20] MEDS: TIOTROPIUM INHALER/CAPSULE (SPIRIVA) INH (12:27)
[2018-02-20 13:46] LABS: ANION GAP 7 MEQ/L (8-16); BLOOD UREA NITROGEN 45 MG/DL (7-18); CALCIUM LEVEL 8.5 MG/DL (8.8-10.2); CARBON DIOXIDE LEVEL 26 MEQ/L (21-32); CHLORIDE LEVEL 101 MEQ/L (98-107); CREATININE FOR GFR 1.76 MG/DL (0.55-1.30); GLUCOSE, FASTING 206 MG/DL (70-100); POTASSIUM SERUM 5.1 MEQ/L (3.5-5.1); SODIUM LEVEL 134 MEQ/L (136-145)
[2018-02-20 14:00] LABS: CPK CREATINE PHOSPHOKINASE 34 U/L (26-192); MB/CK RELATIVE INDEX 4.12 (< OR =4); TROPONIN I < 0.02 NG/ML (< 0.10)
[2018-02-20] MEDS: MEROPENEM INJ 1 GM in APPROPRIATE DILUENT 1 EA IV ×2 (14:11→21:29)
[2018-02-20 17:17] LABS: BEDSIDE GLUCOSE 83 MG/DL (80-115)
[2018-02-20 20:07] LABS: BEDSIDE GLUCOSE 229 MG/DL (80-115)
[2018-02-20] MEDS: MIRTAZAPINE 15 MG TAB PO (21:24)
[2018-02-20] MEDS: EZETIMIBE 10 MG TAB (ZETIA) PO (21:25)
[2018-02-20] MEDS: traZODone 50 MG TAB PO (21:25)
[2018-02-20] MEDS: SIMVASTATIN 40 MG TAB PO (21:25)
[2018-02-21] MEDS: MEROPENEM INJ 1 GM in APPROPRIATE DILUENT 1 EA IV ×3 (04:27→20:26)
[2018-02-21] MEDS: PERCOCET 5MG/325MG TAB PO ×2 (04:28→16:54)
[2018-02-21] MEDS: HEPARIN SOD (PORCINE) 5000 UNITS/ML VIAL SQ ×3 (05:02→20:31)
[2018-02-21 05:15] LABS: HEMATOCRIT 33.2 % (36.0-47.0); HEMOGLOBIN 10.4 g/dl (12.0-15.5); MEAN CORPUSCULAR HEMOGLOBIN 27.2 pg (27.0-33.0); MEAN CORPUSCULAR HGB CONC 31.3 g/dl (32.0-36.5); MEAN CORPUSCULAR VOLUME 86.7 fl (80.0-96.0); PLATELET COUNT, AUTOMATED 212 10^3/uL (150-450); RED BLOOD COUNT 3.83 10^6/uL (4.00-5.40); RED CELL DISTRIBUTION WIDTH 14.5 % (11.5-14.5); WHITE BLOOD COUNT 16.1 10^3/uL (4.0-10.0)
[2018-02-21 05:17] LABS: ADD MANUAL DIFFER YES; DIFF SLIDE NUMBER 26; POSITIVE MORPH POS FLAG
[2018-02-21 05:42] LABS: BANDS 10 % (< 11); LYMPHOCYTES 15 % (16-52); METAMYELOCYTES 8 % (0-0); MONOCYTES 3 % (0-8); MYELOCYTES 1 % (0-0); NEUTROPHILS 63 % (35-75); PLATELET CLUMPS MODERATE AMT; PLATELET ESTIMATE NORMAL (NORMAL)
[2018-02-21 05:43] LABS: HYPOCHROMASIA 1+
[2018-02-21 05:45] LABS: ALBUMIN 2.2 GM/DL (3.2-5.2); ALBUMIN/GLOBULIN RATIO 0.59 (1.00-1.93); ALKALINE PHOSPHATASE 72 U/L (45-117); ALT/SGPT 20 U/L (12-78); ANION GAP 6 MEQ/L (8-16); AST/SGOT 8 U/L (7-37); BILIRUBIN,TOTAL 0.4 MG/DL (0.2-1.0); BLOOD UREA NITROGEN 50 MG/DL (7-18); CALCIUM LEVEL 8.9 MG/DL (8.8-10.2); CARBON DIOXIDE LEVEL 25 MEQ/L (21-32); CHLORIDE LEVEL 102 MEQ/L (98-107); CREATININE FOR GFR 1.79 MG/DL (0.55-1.30); GLOMERULAR FILTRATION RATE 30.4 (>45); GLUCOSE, FASTING 243 MG/DL (70-100); POTASSIUM SERUM 5.5 MEQ/L (3.5-5.1); SODIUM LEVEL 133 MEQ/L (136-145); TOTAL PROTEIN 5.9 GM/DL (6.4-8.2)
[2018-02-21] MEDS: TIOTROPIUM INHALER/CAPSULE (SPIRIVA) INH (07:18)
[2018-02-21] MEDS: SYMBICORT 160/4.5MCG INHALER 6GM INH ×2 (07:18→21:00)
[2018-02-21] MEDS: IPRATROPIUM 0.5MG/ALBUTEROL 2.5MG INH SOL UD 3ML (DUONEB)(J7620) NEB ×3 (07:19→19:25)
[2018-02-21] MEDS: NS 1,000 ML IV (08:20)
[2018-02-21] MEDS: guaiFENesin ER 600 MG TAB PO ×2 (08:44→20:27)
[2018-02-21] MEDS: methylPREDNISolone INJ 40 MG/1 ML VIAL (J2920) IV (08:44)
[2018-02-21] MEDS: SENOKOT S TAB PO ×2 (08:44→20:27)
[2018-02-21] MEDS: MIRALAX *UNIT DOSE* 17GM PACKET PO (08:44)
[2018-02-21] MEDS: HumaLOG INSULIN (NovoLOG) PER UNIT SC ×4 (08:45→20:30)
[2018-02-21] MEDS: PANTOPRAZOLE 40MG INJ (PROTONIX) (C9113) IV (08:45)
[2018-02-21 10:57] LABS: VANCOMYCIN LEVEL TROUGH 20.8 UG/ML (10.0-20.0)
[2018-02-21 11:46] LABS: BEDSIDE GLUCOSE 229 MG/DL (80-115)
[2018-02-21 15:39] LABS: ANION GAP 8 MEQ/L (8-16); BLOOD UREA NITROGEN 58 MG/DL (7-18); CALCIUM LEVEL 8.4 MG/DL (8.8-10.2); CARBON DIOXIDE LEVEL 25 MEQ/L (21-32); CHLORIDE LEVEL 102 MEQ/L (98-107); CREATININE FOR GFR 1.81 MG/DL (0.55-1.30); GLOMERULAR FILTRATION RATE 30.1 (>45); GLUCOSE, FASTING 270 MG/DL (70-100); POTASSIUM SERUM 5.3 MEQ/L (3.5-5.1); SODIUM LEVEL 135 MEQ/L (136-145)
[2018-02-21] MEDS: SOD POLYSTYRENE SULFONATE SUSP 15 GM/60 ML UD PO (16:53)
[2018-02-21] MEDS: VANCOMYCIN HCL 1,000 MG, VIAL MATE ADAPTER 1 EACH in D5W 250 ML IV (16:53)
[2018-02-21 17:01] LABS: BEDSIDE GLUCOSE 323 MG/DL (80-115)
[2018-02-21] MEDS: NS 1,500 ML IV (19:00)
[2018-02-21 20:18] LABS: BEDSIDE GLUCOSE 232 MG/DL (80-115)
[2018-02-21] MEDS: SIMVASTATIN 40 MG TAB PO (20:28)
[2018-02-21] MEDS: traZODone 50 MG TAB PO (20:28)
[2018-02-21] MEDS: EZETIMIBE 10 MG TAB (ZETIA) PO (20:29)
[2018-02-21] MEDS: methylPREDNISolone 4 MG TAB PO (20:29)
[2018-02-21] MEDS: MIRTAZAPINE 15 MG TAB PO (20:29)
[2018-02-22] MEDS: IPRATROPIUM 0.5MG/ALBUTEROL 2.5MG INH SOL UD 3ML (DUONEB)(J7620) NEB ×4 (01:50→19:47)
[2018-02-22 04:55] LABS: HEMATOCRIT 27.4 % (36.0-47.0); HEMOGLOBIN 8.5 g/dl (12.0-15.5); MEAN CORPUSCULAR HEMOGLOBIN 26.7 pg (27.0-33.0); MEAN CORPUSCULAR VOLUME 86.2 fl (80.0-96.0); PLATELET COUNT, AUTOMATED 183 10^3/uL (150-450); RED BLOOD COUNT 3.18 10^6/uL (4.00-5.40); RED CELL DISTRIBUTION WIDTH 14.5 % (11.5-14.5); WHITE BLOOD COUNT 11.7 10^3/uL (4.0-10.0)
[2018-02-22 04:58] LABS: ADD MANUAL DIFFER YES; DIFF SLIDE NUMBER 12; POS COUNT POS FLAG; POSITIVE MORPH POS FLAG
[2018-02-22] MEDS: MEROPENEM INJ 1 GM in APPROPRIATE DILUENT 1 EA IV (05:00)
[2018-02-22] MEDS: HEPARIN SOD (PORCINE) 5000 UNITS/ML VIAL SQ ×3 (05:17→21:17)
[2018-02-22 05:21] LABS: ATYPICAL LYMPH 1 % (0-5); LYMPHOCYTES 19 % (16-52); MONOCYTES 5 % (0-8); NEUTROPHILS 75 % (35-75)
[2018-02-22 05:22] LABS: ALBUMIN 1.7 GM/DL (3.2-5.2); ALBUMIN/GLOBULIN RATIO 0.45 (1.00-1.93); ALKALINE PHOSPHATASE 68 U/L (45-117); ALT/SGPT 14 U/L (12-78); ANION GAP 7 MEQ/L (8-16); AST/SGOT 5 U/L (7-37); BILIRUBIN,TOTAL 0.3 MG/DL (0.2-1.0); BLOOD UREA NITROGEN 53 MG/DL (7-18); CARBON DIOXIDE LEVEL 24 MEQ/L (21-32); CHLORIDE LEVEL 105 MEQ/L (98-107); CREATININE FOR GFR 1.48 MG/DL (0.55-1.30); GLOMERULAR FILTRATION RATE 37.9 (>45); GLUCOSE, FASTING 278 MG/DL (70-100); PLATELET ESTIMATE NORMAL (NORMAL); POTASSIUM SERUM 5.2 MEQ/L (3.5-5.1); SODIUM LEVEL 136 MEQ/L (136-145); TOTAL PROTEIN 5.5 GM/DL (6.4-8.2)
[2018-02-22] MEDS: TIOTROPIUM INHALER/CAPSULE (SPIRIVA) INH (08:32)
[2018-02-22] MEDS: SYMBICORT 160/4.5MCG INHALER 6GM INH ×2 (08:32→19:47)
[2018-02-22] MEDS: MIRALAX *UNIT DOSE* 17GM PACKET PO (08:36)
[2018-02-22] MEDS: SENOKOT S TAB PO ×2 (08:36→21:00)
[2018-02-22] MEDS: PANTOPRAZOLE 40MG INJ (PROTONIX) (C9113) IV (08:41)
[2018-02-22] MEDS: guaiFENesin ER 600 MG TAB PO ×2 (08:41→21:18)
[2018-02-22] MEDS: HumaLOG INSULIN (NovoLOG) PER UNIT SC ×4 (08:42→21:00)
[2018-02-22] MEDS: methylPREDNISolone 4 MG TAB PO ×2 (08:42→21:18)
[2018-02-22 11:55] LABS: BEDSIDE GLUCOSE 276 MG/DL (80-115)
[2018-02-22] MEDS: LevoFLOXacin 500 MG TABLET PO (12:33)
[2018-02-22 12:36] LABS: HEMATOCRIT 31.4 % (36.0-47.0); HEMOGLOBIN 9.8 g/dl (12.0-15.5)
[2018-02-22 16:31] LABS: BEDSIDE GLUCOSE 226 MG/DL (80-115)
[2018-02-22 21:02] LABS: BEDSIDE GLUCOSE 222 MG/DL (80-115)
[2018-02-22] MEDS: traZODone 50 MG TAB PO (21:17)
[2018-02-22] MEDS: EZETIMIBE 10 MG TAB (ZETIA) PO (21:17)
[2018-02-22] MEDS: MIRTAZAPINE 15 MG TAB PO (21:18)
[2018-02-22] MEDS: SIMVASTATIN 40 MG TAB PO (21:18)
[2018-02-22] MEDS: PERCOCET 5MG/325MG TAB PO (21:24)
[2018-02-23] MEDS: IPRATROPIUM 0.5MG/ALBUTEROL 2.5MG INH SOL UD 3ML (DUONEB)(J7620) NEB ×5 (02:14→20:53)
[2018-02-23] MEDS: HEPARIN SOD (PORCINE) 5000 UNITS/ML VIAL SQ ×3 (05:03→21:34)
[2018-02-23] MEDS: LevoFLOXacin 250 MG TABLET PO (05:03)
[2018-02-23 05:22] LABS: HEMATOCRIT 30.8 % (36.0-47.0); HEMOGLOBIN 9.3 g/dl (12.0-15.5); MEAN CORPUSCULAR HEMOGLOBIN 26.7 pg (27.0-33.0); MEAN CORPUSCULAR HGB CONC 30.2 g/dl (32.0-36.5); MEAN CORPUSCULAR VOLUME 88.5 fl (80.0-96.0); PLATELET COUNT, AUTOMATED 207 10^3/uL (150-450); RED BLOOD COUNT 3.48 10^6/uL (4.00-5.40); RED CELL DISTRIBUTION WIDTH 14.8 % (11.5-14.5); WHITE BLOOD COUNT 11.7 10^3/uL (4.0-10.0)
[2018-02-23 05:32] LABS: ADD MANUAL DIFFER YES; DIFF SLIDE NUMBER 6; POS COUNT POS FLAG; POSITIVE MORPH POS FLAG
[2018-02-23 05:33] LABS: ALKALINE PHOSPHATASE 71 U/L (45-117); ALT/SGPT 15 U/L (12-78); ANION GAP 6 MEQ/L (8-16); AST/SGOT 8 U/L (7-37); BILIRUBIN,TOTAL 0.3 MG/DL (0.2-1.0); BLOOD UREA NITROGEN 49 MG/DL (7-18); CALCIUM LEVEL 8.3 MG/DL (8.8-10.2); CARBON DIOXIDE LEVEL 24 MEQ/L (21-32); CHLORIDE LEVEL 106 MEQ/L (98-107); CREATININE FOR GFR 1.38 MG/DL (0.55-1.30); GLOMERULAR FILTRATION RATE 41.1 (>45); GLUCOSE, FASTING 385 MG/DL (70-100); POTASSIUM SERUM 5.4 MEQ/L (3.5-5.1); SODIUM LEVEL 136 MEQ/L (136-145)
[2018-02-23 05:34] LABS: ALBUMIN 1.9 GM/DL (3.2-5.2); ALBUMIN/GLOBULIN RATIO 0.48 (1.00-1.93); TOTAL PROTEIN 5.9 GM/DL (6.4-8.2)
[2018-02-23 06:17] LABS: ATYPICAL LYMPH 1 % (0-5); LYMPHOCYTES 13 % (16-52); METAMYELOCYTES 4 % (0-0); MONOCYTES 5 % (0-8); MYELOCYTES 1 % (0-0); NEUTROPHILS 76 % (35-75)
[2018-02-23 06:18] LABS: PLATELET ESTIMATE NORMAL (NORMAL)
[2018-02-23 06:19] LABS: HYPOCHROMASIA 1+
[2018-02-23 07:03] LABS: BEDSIDE GLUCOSE 377 MG/DL (80-115)
[2018-02-23] MEDS: HumaLOG INSULIN (NovoLOG) PER UNIT SC ×4 (07:08→21:00)
[2018-02-23] MEDS: SYMBICORT 160/4.5MCG INHALER 6GM INH ×2 (08:04→20:54)
[2018-02-23] MEDS: TIOTROPIUM INHALER/CAPSULE (SPIRIVA) INH (08:04)
[2018-02-23] MEDS: MIRALAX *UNIT DOSE* 17GM PACKET PO (08:07)
[2018-02-23] MEDS: PANTOPRAZOLE 40MG TAB (PROTONIX) PO (08:21)
[2018-02-23] MEDS: SENOKOT S TAB PO ×2 (08:22→21:00)
[2018-02-23] MEDS: methylPREDNISolone 4 MG TAB PO ×2 (08:22→21:36)
[2018-02-23] MEDS: SOD POLYSTYRENE SULFONATE SUSP 15 GM/60 ML UD PO (08:22)
[2018-02-23] MEDS: guaiFENesin ER 600 MG TAB PO ×2 (08:22→21:35)
[2018-02-23 12:20] LABS: BEDSIDE GLUCOSE 260 MG/DL (80-115)
[2018-02-23 16:51] LABS: BEDSIDE GLUCOSE 141 MG/DL (80-115)
[2018-02-23] MEDS: ACETAMINOPHEN TAB 650MG DOSE (2X325MG) PO (18:42)
[2018-02-23 20:05] LABS: BEDSIDE GLUCOSE 156 MG/DL (80-115)
[2018-02-23] MEDS: LEVEMIR (INSULIN DETEMIR) 1 UNITS/0.01ML SC (21:35)
[2018-02-23] MEDS: SIMVASTATIN 40 MG TAB PO (21:35)
[2018-02-23] MEDS: traZODone 50 MG TAB PO (21:36)
[2018-02-23] MEDS: MIRTAZAPINE 15 MG TAB PO (21:36)
[2018-02-23] MEDS: EZETIMIBE 10 MG TAB (ZETIA) PO (21:36)
[2018-02-24] MEDS: IPRATROPIUM 0.5MG/ALBUTEROL 2.5MG INH SOL UD 3ML (DUONEB)(J7620) NEB ×4 (01:18→20:00)
[2018-02-24] MEDS: LevoFLOXacin 250 MG TABLET PO (05:14)
[2018-02-24] MEDS: HEPARIN SOD (PORCINE) 5000 UNITS/ML VIAL SQ ×3 (05:14→22:00)
[2018-02-24] MEDS: ACETAMINOPHEN TAB 650MG DOSE (2X325MG) PO ×3 (05:16→21:17)
[2018-02-24 06:05] LABS: BEDSIDE GLUCOSE 218 MG/DL (80-115)
[2018-02-24 06:54] LABS: C REACTIVE PROTEIN QUANTITATIV 8.58 MG/DL (0.00-0.30)
[2018-02-24] MEDS: HumaLOG INSULIN (NovoLOG) PER UNIT SC ×4 (07:40→21:00)
[2018-02-24] MEDS: TIOTROPIUM INHALER/CAPSULE (SPIRIVA) INH (08:11)
[2018-02-24] MEDS: SYMBICORT 160/4.5MCG INHALER 6GM INH ×2 (08:11→21:00)
[2018-02-24 08:20] LABS: ANION GAP 6 MEQ/L (8-16); BLOOD UREA NITROGEN 38 MG/DL (7-18); CALCIUM LEVEL 8.5 MG/DL (8.8-10.2); CARBON DIOXIDE LEVEL 29 MEQ/L (21-32); CHLORIDE LEVEL 106 MEQ/L (98-107); CREATININE FOR GFR 1.19 MG/DL (0.55-1.30); GLOMERULAR FILTRATION RATE 48.8 (>45); GLUCOSE, FASTING 235 MG/DL (70-100); HEMATOCRIT 29.2 % (36.0-47.0); HEMOGLOBIN 9.1 g/dl (12.0-15.5); MEAN CORPUSCULAR HEMOGLOBIN 26.8 pg (27.0-33.0); MEAN CORPUSCULAR HGB CONC 31.2 g/dl (32.0-36.5); MEAN CORPUSCULAR VOLUME 86.1 fl (80.0-96.0); PLATELET COUNT, AUTOMATED 262 10^3/uL (150-450); POTASSIUM SERUM 4.5 MEQ/L (3.5-5.1); RED BLOOD COUNT 3.39 10^6/uL (4.00-5.40); RED CELL DISTRIBUTION WIDTH 14.8 % (11.5-14.5); SODIUM LEVEL 141 MEQ/L (136-145); WHITE BLOOD COUNT 11.6 10^3/uL (4.0-10.0)
[2018-02-24] MEDS: MIRALAX *UNIT DOSE* 17GM PACKET PO (08:29)
[2018-02-24] MEDS: SENOKOT S TAB PO ×2 (08:29→21:00)
[2018-02-24] MEDS: PANTOPRAZOLE 40MG TAB (PROTONIX) PO (08:29)
[2018-02-24] MEDS: guaiFENesin ER 600 MG TAB PO ×2 (08:30→21:11)
[2018-02-24] MEDS: methylPREDNISolone 4 MG TAB PO ×2 (08:30→21:13)
[2018-02-24 12:02] LABS: BEDSIDE GLUCOSE 226 MG/DL (80-115)
[2018-02-24 16:40] LABS: BEDSIDE GLUCOSE 221 MG/DL (80-115)
[2018-02-24 19:37] LABS: BEDSIDE GLUCOSE 197 MG/DL (80-115)
[2018-02-24] MEDS: MIRTAZAPINE 15 MG TAB PO (21:10)
[2018-02-24] MEDS: EZETIMIBE 10 MG TAB (ZETIA) PO (21:11)
[2018-02-24] MEDS: LEVEMIR (INSULIN DETEMIR) 1 UNITS/0.01ML SC (21:13)
[2018-02-24] MEDS: SIMVASTATIN 40 MG TAB PO (21:13)
[2018-02-24] MEDS: traZODone 50 MG TAB PO (21:13)
[2018-02-25] MEDS: IPRATROPIUM 0.5MG/ALBUTEROL 2.5MG INH SOL UD 3ML (DUONEB)(J7620) NEB ×4 (02:00→20:00)
[2018-02-25] MEDS: LevoFLOXacin 250 MG TABLET PO (06:13)
[2018-02-25] MEDS: ACETAMINOPHEN TAB 650MG DOSE (2X325MG) PO (06:13)
[2018-02-25] MEDS: HEPARIN SOD (PORCINE) 5000 UNITS/ML VIAL SQ ×3 (06:14→22:24)
[2018-02-25 06:29] LABS: HEMATOCRIT 29.1 % (36.0-47.0); HEMOGLOBIN 8.9 g/dl (12.0-15.5); MEAN CORPUSCULAR HEMOGLOBIN 26.6 pg (27.0-33.0); MEAN CORPUSCULAR HGB CONC 30.6 g/dl (32.0-36.5); MEAN CORPUSCULAR VOLUME 87.1 fl (80.0-96.0); PLATELET COUNT, AUTOMATED 239 10^3/uL (150-450); RED BLOOD COUNT 3.34 10^6/uL (4.00-5.40); RED CELL DISTRIBUTION WIDTH 14.6 % (11.5-14.5); WHITE BLOOD COUNT 12.5 10^3/uL (4.0-10.0)
[2018-02-25 06:39] LABS: ANION GAP 5 MEQ/L (8-16); BLOOD UREA NITROGEN 34 MG/DL (7-18); C REACTIVE PROTEIN QUANTITATIV 7.35 MG/DL (0.00-0.30); CALCIUM LEVEL 7.9 MG/DL (8.8-10.2); CARBON DIOXIDE LEVEL 30 MEQ/L (21-32); CHLORIDE LEVEL 107 MEQ/L (98-107); CREATININE FOR GFR 1.04 MG/DL (0.55-1.30); GLUCOSE, FASTING 226 MG/DL (70-100); POTASSIUM SERUM 4.7 MEQ/L (3.5-5.1); SODIUM LEVEL 142 MEQ/L (136-145)
[2018-02-25] MEDS: TIOTROPIUM INHALER/CAPSULE (SPIRIVA) INH (07:30)
[2018-02-25] MEDS: SYMBICORT 160/4.5MCG INHALER 6GM INH ×2 (07:31→20:13)
[2018-02-25 08:45] LABS: FERRITIN 238 NG/ML (8-252); IRON (FE) 42 UG/DL (50-170); PERCENT SATURATION 21.2 % (13.2-45.0); TOTAL IRON BINDING CAPACITY 198 UG/DL (250-450)
[2018-02-25] MEDS: HumaLOG INSULIN (NovoLOG) PER UNIT SC ×4 (09:06→21:00)
[2018-02-25] MEDS: guaiFENesin ER 600 MG TAB PO ×2 (09:07→22:23)
[2018-02-25] MEDS: PANTOPRAZOLE 40MG TAB (PROTONIX) PO (09:07)
[2018-02-25] MEDS: MIRALAX *UNIT DOSE* 17GM PACKET PO (09:07)
[2018-02-25] MEDS: methylPREDNISolone 4 MG TAB PO ×2 (09:07→22:23)
[2018-02-25] MEDS: SENOKOT S TAB PO ×2 (09:07→21:00)
[2018-02-25] MEDS ORDERED: PILL CRUSHER/CUTTER 1 EACH XX (11:00)
[2018-02-25 11:42] LABS: BEDSIDE GLUCOSE 224 MG/DL (80-115)
[2018-02-25] MEDS: MORPHINE 4 MG/ML 1ML VIAL/SYRINGE (J2270) SC (14:29)
[2018-02-25] MEDS ORDERED: MORPHINE 4 MG/ML 1ML VIAL/SYRINGE (J2270) IV (15:00)
[2018-02-25 16:56] LABS: BEDSIDE GLUCOSE 218 MG/DL (80-115)
[2018-02-25] MEDS: PERCOCET 5MG/325MG TAB PO (18:08)
[2018-02-25 20:36] LABS: BEDSIDE GLUCOSE 171 MG/DL (80-115)
[2018-02-25] MEDS: SIMVASTATIN 40 MG TAB PO (22:22)
[2018-02-25] MEDS: MIRTAZAPINE 15 MG TAB PO (22:23)
[2018-02-25] MEDS: traZODone 50 MG TAB PO (22:23)
[2018-02-25] MEDS: EZETIMIBE 10 MG TAB (ZETIA) PO (22:23)
[2018-02-25] MEDS: LEVEMIR (INSULIN DETEMIR) 1 UNITS/0.01ML SC (22:24)
[2018-02-26] MEDS: PERCOCET 5MG/325MG TAB PO ×4 (00:49→20:41)
[2018-02-26] MEDS: IPRATROPIUM 0.5MG/ALBUTEROL 2.5MG INH SOL UD 3ML (DUONEB)(J7620) NEB ×4 (02:00→20:00)
[2018-02-26 06:13] LABS: HEMATOCRIT 29.2 % (36.0-47.0); MEAN CORPUSCULAR HEMOGLOBIN 26.2 pg (27.0-33.0); MEAN CORPUSCULAR HGB CONC 30.8 g/dl (32.0-36.5); MEAN CORPUSCULAR VOLUME 85.1 fl (80.0-96.0); PLATELET COUNT, AUTOMATED 260 10^3/uL (150-450); RED BLOOD COUNT 3.43 10^6/uL (4.00-5.40); RED CELL DISTRIBUTION WIDTH 14.2 % (11.5-14.5); WHITE BLOOD COUNT 11.8 10^3/uL (4.0-10.0)
[2018-02-26 06:31] LABS: ANION GAP 5 MEQ/L (8-16); BLOOD UREA NITROGEN 27 MG/DL (7-18); C REACTIVE PROTEIN QUANTITATIV 5.38 MG/DL (0.00-0.30); CALCIUM LEVEL 8.4 MG/DL (8.8-10.2); CARBON DIOXIDE LEVEL 33 MEQ/L (21-32); CHLORIDE LEVEL 103 MEQ/L (98-107); CREATININE FOR GFR 1.01 MG/DL (0.55-1.30); GLOMERULAR FILTRATION RATE 58.9 (>45); GLUCOSE, FASTING 170 MG/DL (70-100); POTASSIUM SERUM 4.2 MEQ/L (3.5-5.1); SODIUM LEVEL 141 MEQ/L (136-145)
[2018-02-26] MEDS: HEPARIN SOD (PORCINE) 5000 UNITS/ML VIAL SQ ×3 (06:34→21:41)
[2018-02-26] MEDS: LevoFLOXacin 250 MG TABLET PO (06:35)
[2018-02-26] MEDS: SYMBICORT 160/4.5MCG INHALER 6GM INH ×2 (07:34→21:06)
[2018-02-26] MEDS: TIOTROPIUM INHALER/CAPSULE (SPIRIVA) INH (07:34)
[2018-02-26] MEDS: HumaLOG INSULIN (NovoLOG) PER UNIT SC ×4 (08:28→20:16)
[2018-02-26] MEDS: guaiFENesin ER 600 MG TAB PO ×2 (08:28→20:15)
[2018-02-26] MEDS: PANTOPRAZOLE 40MG TAB (PROTONIX) PO (08:29)
[2018-02-26] MEDS: methylPREDNISolone 4 MG TAB PO ×2 (08:29→20:15)
[2018-02-26] MEDS: SENOKOT S TAB PO ×2 (08:56→20:15)
[2018-02-26] MEDS: MIRALAX *UNIT DOSE* 17GM PACKET PO (08:56)
[2018-02-26 11:54] LABS: BEDSIDE GLUCOSE 148 MG/DL (80-115)
[2018-02-26 17:18] LABS: BEDSIDE GLUCOSE 228 MG/DL (80-115)
[2018-02-26] MEDS: MIRTAZAPINE 15 MG TAB PO (20:15)
[2018-02-26] MEDS: SIMVASTATIN 40 MG TAB PO (20:15)
[2018-02-26] MEDS: EZETIMIBE 10 MG TAB (ZETIA) PO (20:15)
[2018-02-26] MEDS: traZODone 50 MG TAB PO (20:15)
[2018-02-26 20:16] LABS: BEDSIDE GLUCOSE 177 MG/DL (80-115)
[2018-02-26] MEDS: LEVEMIR (INSULIN DETEMIR) 1 UNITS/0.01ML SC (20:16)
[2018-02-27] MEDS: IPRATROPIUM 0.5MG/ALBUTEROL 2.5MG INH SOL UD 3ML (DUONEB)(J7620) NEB ×4 (02:00→20:00)
[2018-02-27] MEDS: HEPARIN SOD (PORCINE) 5000 UNITS/ML VIAL SQ ×3 (05:41→21:48)
[2018-02-27 05:56] LABS: HEMATOCRIT 29.5 % (36.0-47.0); HEMOGLOBIN 8.9 g/dl (12.0-15.5); MEAN CORPUSCULAR HGB CONC 30.2 g/dl (32.0-36.5); MEAN CORPUSCULAR VOLUME 86.3 fl (80.0-96.0); PLATELET COUNT, AUTOMATED 306 10^3/uL (150-450); RED BLOOD COUNT 3.42 10^6/uL (4.00-5.40); RED CELL DISTRIBUTION WIDTH 14.2 % (11.5-14.5)
[2018-02-27] MEDS: PERCOCET 5MG/325MG TAB PO ×3 (06:14→20:06)
[2018-02-27 06:24] LABS: ANION GAP 5 MEQ/L (8-16); BLOOD UREA NITROGEN 27 MG/DL (7-18); C REACTIVE PROTEIN QUANTITATIV 5.15 MG/DL (0.00-0.30); CALCIUM LEVEL 8.3 MG/DL (8.8-10.2); CARBON DIOXIDE LEVEL 32 MEQ/L (21-32); CHLORIDE LEVEL 103 MEQ/L (98-107); CREATININE FOR GFR 0.92 MG/DL (0.55-1.30); GLOMERULAR FILTRATION RATE > 60.0 (>45); GLUCOSE, FASTING 155 MG/DL (70-100); POTASSIUM SERUM 4.4 MEQ/L (3.5-5.1); SODIUM LEVEL 140 MEQ/L (136-145)
[2018-02-27] MEDS: SYMBICORT 160/4.5MCG INHALER 6GM INH ×2 (08:34→21:00)
[2018-02-27] MEDS: TIOTROPIUM INHALER/CAPSULE (SPIRIVA) INH (08:34)
[2018-02-27] MEDS: PANTOPRAZOLE 40MG TAB (PROTONIX) PO (08:59)
[2018-02-27] MEDS: SENOKOT S TAB PO ×2 (08:59→21:47)
[2018-02-27] MEDS: MIRALAX *UNIT DOSE* 17GM PACKET PO (08:59)
[2018-02-27] MEDS: methylPREDNISolone 4 MG TAB PO ×2 (08:59→21:46)
[2018-02-27] MEDS: guaiFENesin ER 600 MG TAB PO ×2 (08:59→21:46)
[2018-02-27] MEDS: HumaLOG INSULIN (NovoLOG) PER UNIT SC ×4 (09:00→21:47)
[2018-02-27 10:51] LABS: VITAMIN B12 LEVEL 547 PG/ML (247-911)
[2018-02-27 10:52] LABS: FOLATE 9.1 NG/ML (>5.4)
[2018-02-27 12:15] LABS: BEDSIDE GLUCOSE 133 MG/DL (80-115)
[2018-02-27 16:59] LABS: BEDSIDE GLUCOSE 207 MG/DL (80-115)
[2018-02-27 21:23] LABS: BEDSIDE GLUCOSE 110 MG/DL (80-115)
[2018-02-27] MEDS: traZODone 50 MG TAB PO (21:46)
[2018-02-27] MEDS: EZETIMIBE 10 MG TAB (ZETIA) PO (21:47)
[2018-02-27] MEDS: SIMVASTATIN 40 MG TAB PO (21:47)
[2018-02-27] MEDS: LEVEMIR (INSULIN DETEMIR) 1 UNITS/0.01ML SC (21:47)
[2018-02-27] MEDS: MIRTAZAPINE 15 MG TAB PO (21:47)
[2018-02-28] MEDS: IPRATROPIUM 0.5MG/ALBUTEROL 2.5MG INH SOL UD 3ML (DUONEB)(J7620) NEB ×4 (02:00→20:00)
[2018-02-28] MEDS: PERCOCET 5MG/325MG TAB PO ×3 (03:48→17:00)
[2018-02-28 06:07] LABS: HEMATOCRIT 29.1 % (36.0-47.0); MEAN CORPUSCULAR HEMOGLOBIN 26.7 pg (27.0-33.0); MEAN CORPUSCULAR HGB CONC 30.9 g/dl (32.0-36.5); MEAN CORPUSCULAR VOLUME 86.4 fl (80.0-96.0); PLATELET COUNT, AUTOMATED 338 10^3/uL (150-450); RED BLOOD COUNT 3.37 10^6/uL (4.00-5.40); RED CELL DISTRIBUTION WIDTH 14.4 % (11.5-14.5)
[2018-02-28 06:26] LABS: ANION GAP 4 MEQ/L (8-16); BLOOD UREA NITROGEN 24 MG/DL (7-18); C REACTIVE PROTEIN QUANTITATIV 7.31 MG/DL (0.00-0.30); CALCIUM LEVEL 8.2 MG/DL (8.8-10.2); CARBON DIOXIDE LEVEL 34 MEQ/L (21-32); CHLORIDE LEVEL 101 MEQ/L (98-107); GLOMERULAR FILTRATION RATE 59.6 (>45); GLUCOSE, FASTING 171 MG/DL (70-100); POTASSIUM SERUM 4.7 MEQ/L (3.5-5.1); SODIUM LEVEL 139 MEQ/L (136-145)
[2018-02-28] MEDS: HEPARIN SOD (PORCINE) 5000 UNITS/ML VIAL SQ ×3 (06:33→20:25)
[2018-02-28] MEDS: TIOTROPIUM INHALER/CAPSULE (SPIRIVA) INH (08:06)
[2018-02-28] MEDS: SYMBICORT 160/4.5MCG INHALER 6GM INH ×2 (08:07→20:29)
[2018-02-28] MEDS: HumaLOG INSULIN (NovoLOG) PER UNIT SC ×4 (08:49→20:24)
[2018-02-28] MEDS: MIRALAX *UNIT DOSE* 17GM PACKET PO (09:00)
[2018-02-28] MEDS: guaiFENesin ER 600 MG TAB PO ×2 (09:41→20:24)
[2018-02-28] MEDS: PANTOPRAZOLE 40MG TAB (PROTONIX) PO (09:41)
[2018-02-28] MEDS: methylPREDNISolone 4 MG TAB PO ×2 (09:41→20:24)
[2018-02-28] MEDS: SENOKOT S TAB PO ×2 (09:42→20:24)
[2018-02-28 11:39] LABS: BEDSIDE GLUCOSE 95 MG/DL (80-115)
[2018-02-28 16:42] LABS: BEDSIDE GLUCOSE 352 MG/DL (80-115)
[2018-02-28 20:06] LABS: BEDSIDE GLUCOSE 130 MG/DL (80-115)
[2018-02-28] MEDS: MIRTAZAPINE 15 MG TAB PO (20:24)
[2018-02-28] MEDS: traZODone 50 MG TAB PO (20:24)
[2018-02-28] MEDS: EZETIMIBE 10 MG TAB (ZETIA) PO (20:24)
[2018-02-28] MEDS: SIMVASTATIN 40 MG TAB PO (20:24)
[2018-02-28] MEDS: LEVEMIR (INSULIN DETEMIR) 1 UNITS/0.01ML SC (20:25)
[2018-02-28 20:55] LABS: BEDSIDE GLUCOSE 70 MG/DL (80-115)
[2018-02-28 22:08] LABS: BEDSIDE GLUCOSE 137 MG/DL (80-115)
[2018-03-01] MEDS: PERCOCET 5MG/325MG TAB PO ×4 (00:12→20:00)
[2018-03-01] MEDS: IPRATROPIUM 0.5MG/ALBUTEROL 2.5MG INH SOL UD 3ML (DUONEB)(J7620) NEB ×4 (02:00→20:00)
[2018-03-01 03:24] LABS: BEDSIDE GLUCOSE 112 MG/DL (80-115)
[2018-03-01] MEDS: HEPARIN SOD (PORCINE) 5000 UNITS/ML VIAL SQ ×3 (05:31→20:57)
[2018-03-01 06:02] LABS: HEMOGLOBIN 9.3 g/dl (12.0-15.5); PLATELET COUNT, AUTOMATED 387 10^3/uL (150-450); RED BLOOD COUNT 3.45 10^6/uL (4.00-5.40); RED CELL DISTRIBUTION WIDTH 14.4 % (11.5-14.5); WHITE BLOOD COUNT 10.3 10^3/uL (4.0-10.0)
[2018-03-01 06:29] LABS: ANION GAP 9 MEQ/L (8-16); BLOOD UREA NITROGEN 24 MG/DL (7-18); C REACTIVE PROTEIN QUANTITATIV 7.93 MG/DL (0.00-0.30); CALCIUM LEVEL 8.1 MG/DL (8.8-10.2); CARBON DIOXIDE LEVEL 34 MEQ/L (21-32); CHLORIDE LEVEL 105 MEQ/L (98-107); CREATININE FOR GFR 1.06 MG/DL (0.55-1.30); GLOMERULAR FILTRATION RATE 55.7 (>45); GLUCOSE, FASTING 123 MG/DL (70-100); POTASSIUM SERUM 4.9 MEQ/L (3.5-5.1); SODIUM LEVEL 148 MEQ/L (136-145)
[2018-03-01] MEDS: SYMBICORT 160/4.5MCG INHALER 6GM INH ×2 (07:40→21:16)
[2018-03-01] MEDS: TIOTROPIUM INHALER/CAPSULE (SPIRIVA) INH (07:40)
[2018-03-01 07:44] LABS: BEDSIDE GLUCOSE 159 MG/DL (80-115)
[2018-03-01] MEDS: HumaLOG INSULIN (NovoLOG) PER UNIT SC ×4 (07:52→20:56)
[2018-03-01] MEDS: PANTOPRAZOLE 40MG TAB (PROTONIX) PO (07:53)
[2018-03-01] MEDS: guaiFENesin ER 600 MG TAB PO ×2 (07:53→20:55)
[2018-03-01] MEDS: SENOKOT S TAB PO ×2 (07:53→20:55)
[2018-03-01] MEDS: methylPREDNISolone 4 MG TAB PO (07:53)
[2018-03-01] MEDS: MIRALAX *UNIT DOSE* 17GM PACKET PO (07:54)
[2018-03-01 11:45] LABS: BEDSIDE GLUCOSE 143 MG/DL (80-115)
[2018-03-01 16:59] LABS: BEDSIDE GLUCOSE 223 MG/DL (80-115)
[2018-03-01 20:33] LABS: BEDSIDE GLUCOSE 175 MG/DL (80-115)
[2018-03-01] MEDS: traZODone 50 MG TAB PO (20:55)
[2018-03-01] MEDS: MIRTAZAPINE 15 MG TAB PO (20:55)
[2018-03-01] MEDS: SIMVASTATIN 40 MG TAB PO (20:56)
[2018-03-01] MEDS: EZETIMIBE 10 MG TAB (ZETIA) PO (20:56)
[2018-03-01] MEDS: LEVEMIR (INSULIN DETEMIR) 1 UNITS/0.01ML SC (20:57)
[2018-03-02] MEDS: IPRATROPIUM 0.5MG/ALBUTEROL 2.5MG INH SOL UD 3ML (DUONEB)(J7620) NEB ×4 (01:28→20:00)
[2018-03-02] MEDS: PERCOCET 5MG/325MG TAB PO ×4 (02:03→22:25)
[2018-03-02 06:31] LABS: HEMOGLOBIN 8.9 g/dl (12.0-15.5); MEAN CORPUSCULAR HGB CONC 30.7 g/dl (32.0-36.5); MEAN CORPUSCULAR VOLUME 87.9 fl (80.0-96.0); PLATELET COUNT, AUTOMATED 402 10^3/uL (150-450); RED CELL DISTRIBUTION WIDTH 14.6 % (11.5-14.5); WHITE BLOOD COUNT 9.6 10^3/uL (4.0-10.0)
[2018-03-02] MEDS: HEPARIN SOD (PORCINE) 5000 UNITS/ML VIAL SQ ×3 (06:32→20:21)
[2018-03-02 06:50] LABS: ANION GAP 5 MEQ/L (8-16); BLOOD UREA NITROGEN 23 MG/DL (7-18); C REACTIVE PROTEIN QUANTITATIV 8.47 MG/DL (0.00-0.30); CALCIUM LEVEL 8.5 MG/DL (8.8-10.2); CARBON DIOXIDE LEVEL 35 MEQ/L (21-32); CHLORIDE LEVEL 98 MEQ/L (98-107); CREATININE FOR GFR 1.03 MG/DL (0.55-1.30); GLOMERULAR FILTRATION RATE 57.6 (>45); GLUCOSE, FASTING 138 MG/DL (70-100); POTASSIUM SERUM 4.6 MEQ/L (3.5-5.1); SODIUM LEVEL 138 MEQ/L (136-145)
[2018-03-02] MEDS: TIOTROPIUM INHALER/CAPSULE (SPIRIVA) INH (07:21)
[2018-03-02] MEDS: SYMBICORT 160/4.5MCG INHALER 6GM INH ×2 (07:21→21:23)
[2018-03-02] MEDS: PANTOPRAZOLE 40MG TAB (PROTONIX) PO (08:38)
[2018-03-02] MEDS: HumaLOG INSULIN (NovoLOG) PER UNIT SC ×4 (08:38→20:21)
[2018-03-02] MEDS: SENOKOT S TAB PO ×2 (08:38→20:22)
[2018-03-02] MEDS: guaiFENesin ER 600 MG TAB PO ×2 (08:38→20:22)
[2018-03-02] MEDS: MIRALAX *UNIT DOSE* 17GM PACKET PO (08:41)
[2018-03-02 11:27] LABS: BEDSIDE GLUCOSE 197 MG/DL (80-115)
[2018-03-02] MEDS: MOXIFLOXACIN 400 MG TAB PO (14:30)
[2018-03-02 16:40] LABS: BEDSIDE GLUCOSE 166 MG/DL (80-115)
[2018-03-02 20:15] LABS: BEDSIDE GLUCOSE 290 MG/DL (80-115)
[2018-03-02] MEDS: LEVEMIR (INSULIN DETEMIR) 1 UNITS/0.01ML SC (20:21)
[2018-03-02] MEDS: MIRTAZAPINE 15 MG TAB PO (20:21)
[2018-03-02] MEDS: traZODone 50 MG TAB PO (20:22)
[2018-03-02] MEDS: SIMVASTATIN 40 MG TAB PO (20:22)
[2018-03-02] MEDS: EZETIMIBE 10 MG TAB (ZETIA) PO (20:22)
[2018-03-03] MEDS: IPRATROPIUM 0.5MG/ALBUTEROL 2.5MG INH SOL UD 3ML (DUONEB)(J7620) NEB ×4 (02:00→20:00)
[2018-03-03] MEDS: MOXIFLOXACIN 400 MG TAB PO (05:29)
[2018-03-03] MEDS: HEPARIN SOD (PORCINE) 5000 UNITS/ML VIAL SQ ×3 (05:30→20:24)
[2018-03-03] MEDS: PERCOCET 5MG/325MG TAB PO ×3 (05:32→22:02)
[2018-03-03 05:55] LABS: HEMATOCRIT 30.7 % (36.0-47.0); HEMOGLOBIN 9.2 g/dl (12.0-15.5); MEAN CORPUSCULAR HEMOGLOBIN 26.4 pg (27.0-33.0); PLATELET COUNT, AUTOMATED 438 10^3/uL (150-450); RED BLOOD COUNT 3.49 10^6/uL (4.00-5.40); RED CELL DISTRIBUTION WIDTH 14.4 % (11.5-14.5); WHITE BLOOD COUNT 8.3 10^3/uL (4.0-10.0)
[2018-03-03 06:17] LABS: ANION GAP 4 MEQ/L (8-16); BLOOD UREA NITROGEN 24 MG/DL (7-18); C REACTIVE PROTEIN QUANTITATIV 7.28 MG/DL (0.00-0.30); CARBON DIOXIDE LEVEL 34 MEQ/L (21-32); CHLORIDE LEVEL 100 MEQ/L (98-107); CREATININE FOR GFR 1.27 MG/DL (0.55-1.30); GLOMERULAR FILTRATION RATE 45.2 (>45); GLUCOSE, FASTING 158 MG/DL (70-100); POTASSIUM SERUM 4.7 MEQ/L (3.5-5.1); SODIUM LEVEL 138 MEQ/L (136-145)
[2018-03-03] MEDS: HumaLOG INSULIN (NovoLOG) PER UNIT SC ×4 (07:30→20:18)
[2018-03-03] MEDS: guaiFENesin ER 600 MG TAB PO ×2 (08:00→20:25)
[2018-03-03] MEDS: SENOKOT S TAB PO ×2 (08:00→20:25)
[2018-03-03] MEDS: MIRALAX *UNIT DOSE* 17GM PACKET PO (08:00)
[2018-03-03] MEDS: PANTOPRAZOLE 40MG TAB (PROTONIX) PO (08:00)
[2018-03-03] MEDS: TIOTROPIUM INHALER/CAPSULE (SPIRIVA) INH (08:41)
[2018-03-03] MEDS: SYMBICORT 160/4.5MCG INHALER 6GM INH ×2 (08:41→20:14)
[2018-03-03 12:11] LABS: BEDSIDE GLUCOSE 168 MG/DL (80-115)
[2018-03-03 19:15] LABS: BEDSIDE GLUCOSE 250 MG/DL (80-115)
[2018-03-03 20:01] LABS: BEDSIDE GLUCOSE 243 MG/DL (80-115)
[2018-03-03] MEDS: LEVEMIR (INSULIN DETEMIR) 1 UNITS/0.01ML SC (20:24)
[2018-03-03] MEDS: SIMVASTATIN 40 MG TAB PO (20:25)
[2018-03-03] MEDS: traZODone 50 MG TAB PO (20:25)
[2018-03-03] MEDS: MIRTAZAPINE 15 MG TAB PO (20:25)
[2018-03-03] MEDS: EZETIMIBE 10 MG TAB (ZETIA) PO (20:25)
[2018-03-04] MEDS: IPRATROPIUM 0.5MG/ALBUTEROL 2.5MG INH SOL UD 3ML (DUONEB)(J7620) NEB ×4 (02:00→20:00)
[2018-03-04] MEDS: MOXIFLOXACIN 400 MG TAB PO (05:20)
[2018-03-04] MEDS: PERCOCET 5MG/325MG TAB PO ×3 (05:21→21:23)
[2018-03-04] MEDS: HEPARIN SOD (PORCINE) 5000 UNITS/ML VIAL SQ ×3 (05:22→21:23)
[2018-03-04 05:26] LABS: BEDSIDE GLUCOSE 139 MG/DL (80-115)
[2018-03-04 06:38] LABS: HEMATOCRIT 28.9 % (36.0-47.0); HEMOGLOBIN 8.8 g/dl (12.0-15.5); MEAN CORPUSCULAR HEMOGLOBIN 26.6 pg (27.0-33.0); MEAN CORPUSCULAR HGB CONC 30.4 g/dl (32.0-36.5); MEAN CORPUSCULAR VOLUME 87.3 fl (80.0-96.0); PLATELET COUNT, AUTOMATED 469 10^3/uL (150-450); RED BLOOD COUNT 3.31 10^6/uL (4.00-5.40); RED CELL DISTRIBUTION WIDTH 14.6 % (11.5-14.5); WHITE BLOOD COUNT 8.4 10^3/uL (4.0-10.0)
[2018-03-04 07:04] LABS: ANION GAP 5 MEQ/L (8-16); BLOOD UREA NITROGEN 23 MG/DL (7-18); CALCIUM LEVEL 8.2 MG/DL (8.8-10.2); CARBON DIOXIDE LEVEL 33 MEQ/L (21-32); CHLORIDE LEVEL 100 MEQ/L (98-107); CREATININE FOR GFR 1.16 MG/DL (0.55-1.30); GLOMERULAR FILTRATION RATE 50.2 (>45); GLUCOSE, FASTING 134 MG/DL (70-100); POTASSIUM SERUM 4.7 MEQ/L (3.5-5.1); SODIUM LEVEL 138 MEQ/L (136-145)
[2018-03-04] MEDS: SYMBICORT 160/4.5MCG INHALER 6GM INH ×2 (07:41→21:46)
[2018-03-04] MEDS: TIOTROPIUM INHALER/CAPSULE (SPIRIVA) INH (07:41)
[2018-03-04 07:45] LABS: C REACTIVE PROTEIN QUANTITATIV 4.33 MG/DL (0.00-0.30)
[2018-03-04] MEDS: guaiFENesin ER 600 MG TAB PO ×2 (09:33→21:22)
[2018-03-04] MEDS: SENOKOT S TAB PO ×2 (09:33→21:22)
[2018-03-04] MEDS: MIRALAX *UNIT DOSE* 17GM PACKET PO (09:33)
[2018-03-04] MEDS: PANTOPRAZOLE 40MG TAB (PROTONIX) PO (09:33)
[2018-03-04] MEDS: HumaLOG INSULIN (NovoLOG) PER UNIT SC ×4 (09:35→21:23)
[2018-03-04 11:42] LABS: BEDSIDE GLUCOSE 80 MG/DL (80-115)
[2018-03-04 16:40] LABS: BEDSIDE GLUCOSE 228 MG/DL (80-115)
[2018-03-04 20:22] LABS: BEDSIDE GLUCOSE 339 MG/DL (80-115)
[2018-03-04] MEDS: MIRTAZAPINE 15 MG TAB PO (21:21)
[2018-03-04] MEDS: SIMVASTATIN 40 MG TAB PO (21:21)
[2018-03-04] MEDS: traZODone 50 MG TAB PO (21:22)
[2018-03-04] MEDS: EZETIMIBE 10 MG TAB (ZETIA) PO (21:22)
[2018-03-04] MEDS: LEVEMIR (INSULIN DETEMIR) 1 UNITS/0.01ML SC (21:24)
[2018-03-05] MEDS: IPRATROPIUM 0.5MG/ALBUTEROL 2.5MG INH SOL UD 3ML (DUONEB)(J7620) NEB ×4 (02:00→20:00)
[2018-03-05] MEDS: MOXIFLOXACIN 400 MG TAB PO (05:31)
[2018-03-05] MEDS: HEPARIN SOD (PORCINE) 5000 UNITS/ML VIAL SQ ×4 (05:31→21:50)
[2018-03-05 06:43] LABS: HEMATOCRIT 29.8 % (36.0-47.0); HEMOGLOBIN 9.1 g/dl (12.0-15.5); MEAN CORPUSCULAR HEMOGLOBIN 26.6 pg (27.0-33.0); MEAN CORPUSCULAR HGB CONC 30.5 g/dl (32.0-36.5); MEAN CORPUSCULAR VOLUME 87.1 fl (80.0-96.0); PLATELET COUNT, AUTOMATED 517 10^3/uL (150-450); RED BLOOD COUNT 3.42 10^6/uL (4.00-5.40); RED CELL DISTRIBUTION WIDTH 14.5 % (11.5-14.5); WHITE BLOOD COUNT 7.4 10^3/uL (4.0-10.0)
[2018-03-05 07:07] LABS: ANION GAP 6 MEQ/L (8-16); BLOOD UREA NITROGEN 27 MG/DL (7-18); C REACTIVE PROTEIN QUANTITATIV 4.09 MG/DL (0.00-0.30); CALCIUM LEVEL 8.2 MG/DL (8.8-10.2); CARBON DIOXIDE LEVEL 32 MEQ/L (21-32); CHLORIDE LEVEL 100 MEQ/L (98-107); CREATININE FOR GFR 1.51 MG/DL (0.55-1.30); GLOMERULAR FILTRATION RATE 37.1 (>45); GLUCOSE, FASTING 163 MG/DL (70-100); MAGNESIUM LEVEL 2.2 MG/DL (1.8-2.4); POTASSIUM SERUM 4.7 MEQ/L (3.5-5.1); SODIUM LEVEL 138 MEQ/L (136-145)
[2018-03-05] MEDS: SYMBICORT 160/4.5MCG INHALER 6GM INH ×2 (08:40→20:18)
[2018-03-05] MEDS: TIOTROPIUM INHALER/CAPSULE (SPIRIVA) INH (08:40)
[2018-03-05] MEDS: MIRALAX *UNIT DOSE* 17GM PACKET PO (09:00)
[2018-03-05] MEDS: PANTOPRAZOLE 40MG TAB (PROTONIX) PO (09:19)
[2018-03-05] MEDS: guaiFENesin ER 600 MG TAB PO ×2 (09:19→21:50)
[2018-03-05] MEDS: HumaLOG INSULIN (NovoLOG) PER UNIT SC ×4 (09:19→21:52)
[2018-03-05] MEDS: SENOKOT S TAB PO ×2 (09:19→21:50)
[2018-03-05] MEDS: PERCOCET 5MG/325MG TAB PO ×3 (10:07→23:45)
[2018-03-05 11:14] LABS: AMORPHOUS SEDIMENT SMALL (NEGATIVE); APPEARANCE, URINE CLEAR (CLEAR); BACTERIA, URINE AUTO NEGATIVE (NEGATIVE); BILIRUBIN, URINE AUTO NEGATIVE (NEGATIVE); BLOOD, URINE BLOOD 2+ (NEGATIVE); COLOR, URINE STRAW (YELLOW); GLUCOSE, URINE (UA) AUTO NEGATIVE (NEGATIVE); KETONE, URINE AUTO NEGATIVE (NEGATIVE); LEUKOCYTE ESTERASE, URINE AUTO NEGATIVE (NEGATIVE); MUCUS, URINE SMALL (NEGATIVE); NITRITE, URINE AUTO NEGATIVE (NEGATIVE); PROTEIN, URINE AUTO NEGATIVE (NEGATIVE); RBC, URINE AUTO 9 /HPF (0-3); SPECIFIC GRAVITY URINE AUTO 1.009 (1.002-1.035); SQUAMOUS EPITHELIAL CELL UR AU 0 /HPF (0-6); UROBILINOGEN, URINE AUTO 0.2 mg/dL (0.0-2.0); WBC, URINE AUTO 3 /HPF (0-3)
[2018-03-05 12:00] LABS: BEDSIDE GLUCOSE 157 MG/DL (80-115)
[2018-03-05 15:24] LABS: ANION GAP 4 MEQ/L (8-16); BLOOD UREA NITROGEN 26 MG/DL (7-18); CALCIUM LEVEL 7.8 MG/DL (8.8-10.2); CARBON DIOXIDE LEVEL 32 MEQ/L (21-32); CHLORIDE LEVEL 103 MEQ/L (98-107); CREATININE FOR GFR 1.39 MG/DL (0.55-1.30); GLOMERULAR FILTRATION RATE 40.8 (>45); GLUCOSE, FASTING 234 MG/DL (70-100); POTASSIUM SERUM 4.7 MEQ/L (3.5-5.1); SODIUM LEVEL 139 MEQ/L (136-145)
[2018-03-05 16:55] LABS: BEDSIDE GLUCOSE 190 MG/DL (80-115)
[2018-03-05 20:09] LABS: BEDSIDE GLUCOSE 292 MG/DL (80-115)
[2018-03-05] MEDS: traZODone 50 MG TAB PO (21:50)
[2018-03-05] MEDS: EZETIMIBE 10 MG TAB (ZETIA) PO (21:50)
[2018-03-05] MEDS: SIMVASTATIN 40 MG TAB PO (21:50)
[2018-03-05] MEDS: MIRTAZAPINE 15 MG TAB PO (21:50)
[2018-03-05] MEDS: LEVEMIR (INSULIN DETEMIR) 1 UNITS/0.01ML SC (21:51)
[2018-03-06] MEDS: IPRATROPIUM 0.5MG/ALBUTEROL 2.5MG INH SOL UD 3ML (DUONEB)(J7620) NEB ×3 (02:00→13:15)
[2018-03-06] MEDS: MOXIFLOXACIN 400 MG TAB PO (05:04)
[2018-03-06] MEDS: HEPARIN SOD (PORCINE) 5000 UNITS/ML VIAL SQ ×2 (05:04→14:00)
[2018-03-06] MEDS: PERCOCET 5MG/325MG TAB PO (06:01)
[2018-03-06 06:36] LABS: HEMATOCRIT 29.7 % (36.0-47.0); MEAN CORPUSCULAR HEMOGLOBIN 26.7 pg (27.0-33.0); MEAN CORPUSCULAR HGB CONC 30.3 g/dl (32.0-36.5); MEAN CORPUSCULAR VOLUME 88.1 fl (80.0-96.0); PLATELET COUNT, AUTOMATED 488 10^3/uL (150-450); RED BLOOD COUNT 3.37 10^6/uL (4.00-5.40); RED CELL DISTRIBUTION WIDTH 14.5 % (11.5-14.5); WHITE BLOOD COUNT 6.6 10^3/uL (4.0-10.0)
[2018-03-06 07:02] LABS: ANION GAP 5 MEQ/L (8-16); BLOOD UREA NITROGEN 27 MG/DL (7-18); C REACTIVE PROTEIN QUANTITATIV 2.75 MG/DL (0.00-0.30); CALCIUM LEVEL 8.3 MG/DL (8.8-10.2); CARBON DIOXIDE LEVEL 32 MEQ/L (21-32); CHLORIDE LEVEL 101 MEQ/L (98-107); CREATININE FOR GFR 1.39 MG/DL (0.55-1.30); GLOMERULAR FILTRATION RATE 40.8 (>45); GLUCOSE, FASTING 139 MG/DL (70-100); MAGNESIUM LEVEL 2.1 MG/DL (1.8-2.4); POTASSIUM SERUM 4.6 MEQ/L (3.5-5.1); SODIUM LEVEL 138 MEQ/L (136-145)
[2018-03-06] MEDS: TIOTROPIUM INHALER/CAPSULE (SPIRIVA) INH (07:13)
[2018-03-06] MEDS: SYMBICORT 160/4.5MCG INHALER 6GM INH (07:13)
[2018-03-06] MEDS: SENOKOT S TAB PO (09:00)
[2018-03-06] MEDS: MIRALAX *UNIT DOSE* 17GM PACKET PO (09:00)
[2018-03-06] MEDS: HumaLOG INSULIN (NovoLOG) PER UNIT SC ×2 (09:47→11:41)
[2018-03-06] MEDS: PANTOPRAZOLE 40MG TAB (PROTONIX) PO (09:48)
[2018-03-06] MEDS: guaiFENesin ER 600 MG TAB PO (09:48)
[2018-03-06 11:42] LABS: BEDSIDE GLUCOSE 84 MG/DL (80-115)
[2018-03-06 13:01] LABS: BEDSIDE GLUCOSE 139 MG/DL (80-115)
[2018-03-06 13:58] LABS: BEDSIDE GLUCOSE 176 MG/DL (80-115)
== END 2018-03-06 15:30 | disposition home or self-care (01) | DRG 139 ==
LOC: M MSPAV 02-23 14:25 → M ICU 02-20 10:22 → M ED 09:55 → M ED INP 15:43 → M PCU 19:05
PROC: 0PSKXZZ Reposition Right Ulna, External Approach (ICD-10-PCS; principal; 2018-02-25)
DX: J13 Pneumonia due to Streptococcus pneumoniae (principal); J96.01 Acute respiratory failure with hypoxia; J96.22 Acute and chronic respiratory failure with hypercapnia; E11.22 Type 2 diabetes mellitus with diabetic chronic kidney disease; Z99.81 Dependence on supplemental oxygen; J44.1 Chronic obstructive pulmonary disease with (acute) exacerbation; E11.65 Type 2 diabetes mellitus with hyperglycemia; R04.2 Hemoptysis; E87.5 Hyperkalemia; N18.3 Chronic kidney disease, stage 3 (moderate); K21.9 Gastro-esophageal reflux disease without esophagitis; I12.9 Hypertensive chronic kidney disease with stage 1 through stage 4 chronic kidney disease, or unspecified chronic kidney disease; F17.210 Nicotine dependence, cigarettes, uncomplicated; J32.9 Chronic sinusitis, unspecified; E78.5 Hyperlipidemia, unspecified; G47.00 Insomnia, unspecified; G47.33 Obstructive sleep apnea (adult) (pediatric); R91.1 Solitary pulmonary nodule; Z79.84 Long term (current) use of oral hypoglycemic drugs; Z88.0 Allergy status to penicillin; Z88.1 Allergy status to other antibiotic agents; T38.0X5A Adverse effect of glucocorticoids and synthetic analogues, initial encounter; S52.531A Colles' fracture of right radius, initial encounter for closed fracture; W10.9XXA Fall (on) (from) unspecified stairs and steps, initial encounter; Y92.9 Unspecified place or not applicable; F41.9 Anxiety disorder, unspecified; Z79.899 Other long term (current) drug therapy

== ENCOUNTER → 2018-03-21 | Outpatient (REF) | payer BC ==
[2018-03-21 14:10] LABS: CREATININE FOR GFR 1.23 MG/DL (0.55-1.30); GLOMERULAR FILTRATION RATE 46.9 (>45)
[2018-03-21 14:10] LABS: BLOOD UREA NITROGEN 20 MG/DL (7-18)
== END ==
LOC: M LAB REF 12:53
DX: R91.8 Other nonspecific abnormal finding of lung field (principal)
CPT/HCPCS: 82565

== ENCOUNTER → 2018-03-29 | Outpatient (CLI) | payer BC ==
[~2018-03-29] MED LIST changes: +ALPR0.25 PO; +ATIV1TAB7 PO; +ATOR1TAB21 PO; +AZIT500T2 PO; +BENZ-18 PO; +BUSP1TAB; +COMBAER6 INH; +ESOM1CAP5 PO; -GASTROGRAFIN SOLUTION 30ML (Q9963) As Ordered; +GLIP1TAB49 PO; +HYDR-3363; +HYDR-3911 PO; +IBUP40TA PO; +IRBE150T12; +IRBE150T12 PO; +ISOS40TASA PO; -ISOVUE-370 76% 100ML VIAL (Q9967) As Ordered; +ISOVUE-370 76% 100ML VIAL (Q9967) As Ordered ONE; +LORA10TA3 PO; +METF10004 PO; +MIRT15TA3 PO; +OCEA0.654; +PRED10TA2 PO; +SITA50TAB PO; +SPIR1CAP INH; +STIO1AER INH; +TRAZ-160 PO; +TYLE325T5 PO; +ZOLP10TA2 PO; +[UNRECOGNIZED DRUG - OTHER] PO
--- NOTE | 2018-03-29 10:56 | REP ---
CT NECK WITH CONTRAST: HISTORY: Abnormal lungs. CONTRAST: Isovue 370, 100 mL. A mass is present arising from the right lateral wall of the hypopharynx. There is anterior extension into the base of the epiglottis and preepiglottic space. There is posterior extension into the right aryepiglottic fold. There is inferior extension into the right false vocal cord. There is minimal mass effect on the hypopharynx, right vallecula, and right pyriform sinus. The naso- and oropharynx and subglottic trachea are normal in appearance. The salivary and thyroid glands are normal in size and density. Small lymph nodes less than 1 cm in size are present in the internal jugular chains, posterior triangles, and submandibular areas. Atherosclerotic calcification is present at the carotid bifurcations. Degenerative change is present in the cervical spine. A right pleural effusion is present. A retention cyst is present in the right maxillary sinus. IMPRESSION: There is a small mass arising from the right lateral wall of the hypopharynx with minimal mass effect on the hypopharynx, vallecula and pyriform sinus consistent with a neoplasm. Electronically Signed by Silvestre Laguna MD 03/29/2018 11:01 A
--- NOTE | 2018-03-29 19:40 | REP ---
Clinical: Pain. Technique: Axial noncontrast images from the thoracic inlet to the upper abdomen with coronal and sagittal re-formations. Comparison: 02/20/2018. Findings: Moderate right pleural effusion with right lower lobe consolidation and subtle nodular changes as well as minimal right middle lobe atelectasis is appreciated. Mediastinal and hilar adenopathy is identified with pretracheal lymph nodes measuring up to approximately 15 mm short axis diameter. Underlying chronic interstitial changes noted throughout the aerated lung schultz. Small subtle areas of opacity in the right lower lobe are suggested along with left upper lobe subpleural nodule measuring 3 mm which is increased from prior examination. Atherosclerotic changes to the thoracic aorta and coronary arteries noted without cardiomegaly or pericardial effusion. Surrounding musculoskeletal structures are intact. Limited upper abdomen demonstrates stable right adrenal adenoma. Impression: 1. Moderate right pleural effusion with right lower lobe consolidation and bibasilar atelectasis as well as suspected adenopathy and 3 mm left subpleural nodule which has increased. These findings are concerning with underlying malignancy and possible metastatic disease. Correlation and follow up is required. Electronically Signed by Jamin Guaman MD 03/29/2018 07:33 P
== END ==
LOC: M RAD 09:38
PROVIDERS: ATTEND Internal Medicine Pulmonary Disease
DX: J90 Pleural effusion, not elsewhere classified (principal); R22.1 Localized swelling, mass and lump, neck; R91.1 Solitary pulmonary nodule
CPT/HCPCS: 70491; 71250; Q9967

== ENCOUNTER → 2018-04-26 | Outpatient (CLI) | payer BC ==
[~2018-04-26] MED LIST changes: -GLIP1TAB49 PO; +GLIP5TAB20 PO; -ISOVUE-370 76% 100ML VIAL (Q9967) As Ordered ONE; +PROHANCE 279.3MG/ML 5ML VIAL (A9576) As Ordered ONE
--- NOTE | 2018-04-27 08:48 | REP ---
MR IACs WITHOUT AND WITH CONTRAST: HISTORY: Pharyngeal neoplasm. CONTRAST: ProHance 8 mL. Scattered punctate areas of increased signal intensity on T2-weighted images are present in the periventricular and subcortical white matter. This represents small vessel ischemic disease. There is no intraparenchymal hemorrhage, infarct, mass, or midline shift. There is no abnormal enhancement. The ventricular system is normal in appearance. There is no extracerebral collection. There is no cerebellopontine angle mass. The inner ear structures are normal in appearance. The mastoid air cells are clear. A retention cyst is present in the right maxillary sinus. IMPRESSION: Minimal small vessel ischemic disease. Electronically Signed by Silvestre Laguna MD 04/27/2018 08:50 A
== END ==
LOC: M RAD 16:43
PROVIDERS: ATTEND Otolaryngology
DX: D37.05 Neoplasm of uncertain behavior of pharynx (principal); J34.1 Cyst and mucocele of nose and nasal sinus; I67.82 Cerebral ischemia
CPT/HCPCS: 70553; A9576

== ENCOUNTER → 2018-05-12 | Outpatient (CLI) | payer BC ==
[~2018-05-12] MED LIST changes: -PROHANCE 279.3MG/ML 5ML VIAL (A9576) As Ordered ONE
--- NOTE | 2018-05-12 16:18 | REP ---
Clinical: Pleural effusion. Technique: Axial noncontrast images from the thoracic inlet to the upper abdomen with coronal and sagittal re-formations. Comparison: 03/29/2018. Findings: The previously noted large right pleural effusion has essentially completely resolved and aeration to the right hemithorax is significantly improved. There is a moderate residual area of consolidation with air bronchograms in the right lower lobe and an adjacent 18 mm rounded mass (image 48). Continued evidence for mediastinal and right hilar adenopathy is noted. The remainder of lung schultz are well-aerated and demonstrate mild/moderate emphysematous changes and bronchiectasis and small areas of scattered scarring. No acute effusion. No pneumothorax. Tracheobronchial tree is patent. Atherosclerotic changes to the thoracic aorta and coronary arteries noted without aortic aneurysm or cardiomegaly. No pericardial effusion. Musculoskeletal structures demonstrate age-related changes without focal osseous abnormality. Impression: 1. Previous right pleural effusion has resolved and aeration to the right lung is improved. 2. Residual moderate area of right lower lobe consolidation with air bronchograms identified with adjacent 18 mm rounded mass. These findings along with mediastinal adenopathy are concerning for malignancy. Biopsy and/or PET-CT should be considered. 3. Atherosclerotic disease. Electronically Signed by Jamin Guaman MD 05/12/2018 04:09 P
== END ==
LOC: M RAD 15:17
PROVIDERS: ATTEND Internal Medicine Pulmonary Disease
DX: R59.9 Enlarged lymph nodes, unspecified (principal); I25.10 Atherosclerotic heart disease of native coronary artery without angina pectoris; R91.8 Other nonspecific abnormal finding of lung field

== ENCOUNTER 2018-05-29 09:02 | Day surgery (SDC) | payer BC ==
[~2018-05-29] VITALS: Ht 167.6 cm; Wt 78.9 kg
[~2018-05-29 09:02] MED LIST changes: +LIDOCAINE 2% INJ 100 MG/5 ML SDV (FOR ANES.) As Ordered ONE; +MIDAZOLAM INJ 2 MG/2 ML VIAL (J2250) As Ordered ONE; +ONDANSETRON 4MG/2ML VIAL (J2405) As Ordered ONE; +PROPOFOL 200 MG/20 ML VIAL As Ordered ONE; +ROCURONIUM BROMIDE 50 MG/5 ML VIAL As Ordered ONE; +dexameTHASONE 4 MG/ML 1ML VIAL (J1100) As Ordered ONE; +fentaNYL 250 MCG/5 ML INJECTION (J3010) As Ordered ONE
[2018-05-29] MEDS ORDERED: LR 1,000 ML IV ONE (10:15)
[2018-05-29] MEDS ORDERED: THROMBIN SOLN 5,000 UNITS VIAL As Ordered ONE (10:34)
[2018-05-29] MEDS ORDERED: LIDOCAINE VISCOUS 2% SOLN 15ML UDC As Ordered ONE (10:35)
[2018-05-29] MEDS ORDERED: LIDOCAINE 1% SDV INJ 30 ML VIAL As Ordered ONE (10:35)
[2018-05-29] MEDS ORDERED: CETACAINE SPRAY 5GM As Ordered ONE (10:35)
[2018-05-29] MEDS ORDERED: EPINEPHrine 1MG/10ML SYRINGE 1.5IN As Ordered ONE (10:35)
[2018-05-29] MEDS ORDERED: PHENYLephrine HCL 500 MCG/5 ML (100MCG/ML) SYRINGE (J2370) As Ordered ONE (11:59)
[2018-05-29] MEDS ORDERED: ePHEDrine SULFATE 25 MG/5 ML(5MG/ML) SYRINGE As Ordered ONE (12:21)
[2018-05-29] MEDS ORDERED: dexameTHASONE 4 MG/ML 1ML VIAL (J1100) As Ordered ONE (12:32)
[2018-05-29] MEDS ORDERED: NEOSTIGMINE 10 MG/10 ML VIAL (J2710) As Ordered ONE (12:45)
[2018-05-29] MEDS ORDERED: GLYCOPYRROLATE INJ 0.2 MG/ML 2 ML VIAL As Ordered ONE (12:45)
[2018-05-29] MEDS ORDERED: fentaNYL 100 MCG/2 ML INJECTION (J3010) IV PRN (13:15)
[2018-05-29] MEDS ORDERED: ONDANSETRON 4MG/2ML VIAL (J2405) IV PRN (13:15)
[2018-05-29] MEDS ORDERED: PERCOCET 5MG/325MG TAB PO PRN (13:15)
[2018-05-29] MEDS ORDERED: LR 1,000 ML IV SCH (13:15)
--- NOTE | 2018-05-29 13:36 | RO ---
DATE OF PROCEDURE: 05/29/2018 PREOPERATIVE DIAGNOSIS: Abnormal chest CT. Right middle lobe spiculated lesion, 18 mm nodule. POSTOPERATIVE DIAGNOSIS: Abnormal chest CT. Right middle lobe spiculated lesion, 18 mm nodule. Findings of smoker airway. PROCEDURE: Bronchoscopy with electromagnetic navigation endobronchial ultrasound. SURGEON: Dr. Will Galvez CLIENT RESOLUTION SPECIALIST: None. ANESTHESIA: General. Please refer to their records for details. SPECIMENS OBTAINED: 1. Transbronchial biopsies right lower lobe. 2. Fine needle aspiration (FNA) GenCut right lower lobe. 3. Bronchoalveolar lavage (BAL) right lower lobe. 4. Subcarinal node FNA. DESCRIPTION OF PROCEDURE: After informed consent was reviewed with the patient in the preoperative area, she was brought back to operating room (OR) #8, which is a pre mapped room. A time-out was performed with two patient identifiers, identifying correct site and correct procedure. The patient was handed over to anesthesia. The patient was intubated and sedated with an 8.5 endotracheal tube. After adequate sedation, the case was handed over to me. Again, a time-out was performed with two patient identifiers, identifying correct site and correct procedure, along with correlation of the name and date of with the imaging on the navigation machine. After a time-out was performed, the airway was anesthetized with Cetacaine spray. The 1T190 bronchoscope was introduced into the endotracheal tube. The jocelyn was sharp. The right and left mainstem bronchi were normal except for minimal amounts of thick mucus and banding. RB 1 through 10 was inspected. Except for fairly large pitting, there were no significant endobronchial lesions. LB 1 through 10 was also inspected without endobronchial lesions. There were no abnormalities in either airway other than anatomic variation. After inspection was performed, percepta brushes were performed of the left mainstem bronchus both anterior and posteriorly. The brushes were sent. Navigation was then performed by inserting the navigational guide through the 1T190 bronchoscope. Automatic registration was performed and confirmed with fluoroscopy. After navigating to the lesion target #1 in the superior segment of the right lower lobe, the guide was removed from the sheath and the ultrasound radial probe was placed. Approximately 1 cm from the end of the sheath under fluoroscopy, there was surrounding tissue on the ultrasound. The ultrasound probe was then removed. Forceps biopsies, transbronchial forceps biopsies were then taken. This was followed by GenCut FNA of the right lower lobe lesion. I then performed bronchoalveolar lavage of the area. Samples were then stopped. There was no evidence of ongoing heme. The 1T190 bronchoscope was then removed and the endobronchial ultrasound linear probe was then inserted. I viewed areas in the 4R subcarinal and right hilar areas. The 4R region had a very small lymph node, less than 7 mm, adjacent to a large blood vessel, it was fairly flat. The subcarinal node was approximately 5 mm, fairly flat. The hilar lymph node was very round and approximately 1 cm, but unobtainable due to adjacent blood vessels. I did biopsy the subcarinal node under endobronchial ultrasound, although difficult due to the size of the node. Samples were sent with cytology and for cell block. After adequate sampling, the airways were suctioned, hemostasis was assured and the bronchoscope was removed. The patient was extubated and is in recovery. A postprocedure chest x-ray is pending. At this point in time, no observed complications. LUIS E
--- NOTE | 2018-05-29 13:48 | REP ---
AP PORTABLE SEMI-ERECT CHEST: 05/29/2018. Clinical history: Postoperative after bronchoscopy. Known right lower lobe nodule, central hilar adenopathy and postobstructive atelectasis or infiltrate in the right lower lobe. Comparison: CT chest 05/12/2018, 03/29/2018; chest x-ray 03/01/2018. Findings: A central and right hilar fullness extending towards the lower lobe. Some patchy atelectatic change right infrahilar region. Linear atelectatic changes in the right mid lower lung zone. Left lung clear. Pulmonary artery hypertension. No pneumothorax or effusion. Electronically Signed by Esdras Jernigan MD 05/29/2018 05:58 P
[2018-05-29 14:15] VITALS: BP 128/71
== END 2018-05-29 14:31 | disposition home or self-care (01) ==
LOC: M SDC 09:02
PROVIDERS: ATTEND Internal Medicine Pulmonary Disease
DX: R91.1 Solitary pulmonary nodule (principal); J44.9 Chronic obstructive pulmonary disease, unspecified; I10 Essential (primary) hypertension; E78.5 Hyperlipidemia, unspecified; E11.9 Type 2 diabetes mellitus without complications; K21.9 Gastro-esophageal reflux disease without esophagitis; Z88.0 Allergy status to penicillin; Z79.899 Other long term (current) drug therapy; F17.210 Nicotine dependence, cigarettes, uncomplicated
CPT/HCPCS: 31624; 31627; 31628; 31629; 31652; 71045; 76000; 87070; 87102; 87116; 87205; 87206; 88108; 88173; 88305; 88313; J2250; J2370; J2405; J2710; J3010

== ENCOUNTER → 2018-06-06 | Outpatient (CLI) | payer BC ==
[~2018-06-06] MED LIST changes: -LIDOCAINE 2% INJ 100 MG/5 ML SDV (FOR ANES.) As Ordered ONE; -MIDAZOLAM INJ 2 MG/2 ML VIAL (J2250) As Ordered ONE; -ONDANSETRON 4MG/2ML VIAL (J2405) As Ordered ONE; +PROHANCE 279.3MG/ML 15ML VIAL (A9576) As Ordered ONE; -PROPOFOL 200 MG/20 ML VIAL As Ordered ONE; -ROCURONIUM BROMIDE 50 MG/5 ML VIAL As Ordered ONE; -dexameTHASONE 4 MG/ML 1ML VIAL (J1100) As Ordered ONE; -fentaNYL 250 MCG/5 ML INJECTION (J3010) As Ordered ONE
--- NOTE | 2018-06-07 09:01 | REP ---
MR NECK WITHOUT AND WITH CONTRAST: HISTORY: Pharyngeal neoplasm. CONTRAST: ProHance 8 mL. COMPARISON: CT 03/29/2018. The examination is very limited secondary to motion and technique. A mass with moderate homogenous enhancement is present arising from the right lateral wall of the hypopharynx. There is anterior extension into the base of the epiglottis and pre-epiglottic space. There is posterior extension into the posterior wall of the hypopharynx. The mass appears to extend inferior into the region of the right false vocal cord. There is minimal mass effect on the hypopharynx. The naso and oropharynx and subglottic trachea are normal in appearance. The salivary and thyroid glands are normal in size and signal intensity. Small lymph nodes less than 1 cm in size are present in the internal jugular chains, posterior triangles and submandibular areas. Mucosal thickening is present in the right maxillary sinus. IMPRESSION: Limited examination demonstrating no definite change in size of the right hypopharyngeal mass compared to the previous CT examination. Electronically Signed by Silvestre Laguna MD 06/07/2018 09:05 A
== END ==
LOC: M RAD 17:41
PROVIDERS: ATTEND Otolaryngology
DX: D37.05 Neoplasm of uncertain behavior of pharynx (principal)
CPT/HCPCS: 70543; A9576

== ENCOUNTER → 2018-06-09 | Outpatient (REF) | payer BC ==
[~2018-06-09] MED LIST changes: +CLOT1CRE EXT; +EZET1TAB10 PO; -PROHANCE 279.3MG/ML 15ML VIAL (A9576) As Ordered ONE
[2018-06-09 18:09] LABS: BASO # 0.1 10^3/uL (0.0-0.2); BASO % 0.6 % (0.0-1.0); EOS # 0.3 10^3/uL (0.0-0.50); EOS % 2.8 % (0.0-3.0); HEMOGLOBIN 12.3 g/dl (12.0-15.5); LYMPH # 2.8 10^3/uL (1.5-4.5); LYMPH % 31.9 % (24.0-44.0); MEAN CORPUSCULAR HEMOGLOBIN 25.7 pg (27.0-33.0); MEAN CORPUSCULAR HGB CONC 30.8 g/dl (32.0-36.5); MEAN CORPUSCULAR VOLUME 83.5 fl (80.0-96.0); MONO # 0.5 10^3/uL (0.0-0.8); MONO % 5.5 % (0.0-5.0); NEUTROPHILS # 5.2 10^3/uL (1.8-7.7); NEUTROPHILS % 58.9 % (36.0-66.0); PLATELET COUNT, AUTOMATED 327 10^3/uL (150-450); RED BLOOD COUNT 4.79 10^6/uL (4.00-5.40); WHITE BLOOD COUNT 8.9 10^3/uL (4.0-10.0)
[2018-06-09 18:27] LABS: ALBUMIN 3.7 GM/DL (3.2-5.2); ALT/SGPT 10 U/L (12-78); BILIRUBIN,TOTAL 0.4 MG/DL (0.2-1.0); BLOOD UREA NITROGEN 26 MG/DL (7-18); CALCIUM LEVEL 8.3 MG/DL (8.8-10.2); CARBON DIOXIDE LEVEL 23 MEQ/L (21-32); CHLORIDE LEVEL 109 MEQ/L (98-107); GLOMERULAR FILTRATION RATE 48.3 (>45); GLUCOSE, FASTING 176 MG/DL (70-100); POTASSIUM SERUM 4.5 MEQ/L (3.5-5.1); SODIUM LEVEL 142 MEQ/L (136-145); TOTAL PROTEIN 6.8 GM/DL (6.4-8.2)
== END ==
LOC: M LABDRAW1 17:15
PROVIDERS: ATTEND Nurse Practitioner Adult Health
DX: Z01.810 Encounter for preprocedural cardiovascular examination (principal); Z01.818 Encounter for other preprocedural examination; Z01.812 Encounter for preprocedural laboratory examination

== ENCOUNTER 2018-06-15 08:01 | Day surgery (SDC) | payer BC ==
[~2018-06-15] VITALS: Ht 167.6 cm; Wt 76.2 kg
[2018-06-15] MEDS ORDERED: METHYLENE BLUE 0.5% (5MG/ML) 10 ML AMP (PROVAYBLUE)(Q9968 PER 1MG) As Ordered ONE (10:06)
[2018-06-15] MEDS ORDERED: LIDOCAINE W/EPINEPHRINE 1% 20ML VIAL As Ordered ONE (10:06)
[2018-06-15] MEDS ORDERED: OXYMETAZOLINE NASAL SPRAY (AFRIN) As Ordered ONE (10:06)
[2018-06-15] MEDS ORDERED: ONDANSETRON 4MG/2ML VIAL (J2405) As Ordered ONE (10:07)
[2018-06-15] MEDS ORDERED: ROCURONIUM BROMIDE 50 MG/5 ML VIAL As Ordered ONE (10:07)
[2018-06-15] MEDS ORDERED: PROPOFOL 200 MG/20 ML VIAL As Ordered ONE (10:07)
[2018-06-15] MEDS ORDERED: fentaNYL 250 MCG/5 ML INJECTION (J3010) As Ordered ONE (10:07)
[2018-06-15] MEDS ORDERED: LIDOCAINE 2% INJ 100 MG/5 ML SDV (FOR ANES.) As Ordered ONE (10:07)
[2018-06-15] MEDS ORDERED: dexameTHASONE 4 MG/ML 1ML VIAL (J1100) As Ordered ONE (10:07)
[2018-06-15] MEDS ORDERED: MIDAZOLAM INJ 2 MG/2 ML VIAL (J2250) As Ordered ONE ×2 (10:08→10:09)
[2018-06-15] MEDS ORDERED: PHENYLephrine HCL 500 MCG/5 ML (100MCG/ML) SYRINGE (J2370) As Ordered ONE (10:46)
[2018-06-15] MEDS ORDERED: ePHEDrine SULFATE 25 MG/5 ML(5MG/ML) SYRINGE As Ordered ONE (10:46)
[2018-06-15] MEDS ORDERED: GLYCOPYRROLATE INJ 0.2 MG/ML 2 ML VIAL As Ordered ONE (11:05)
[2018-06-15] MEDS ORDERED: NEOSTIGMINE 10 MG/10 ML VIAL (J2710) As Ordered ONE (11:05)
[2018-06-15] MEDS ORDERED: NORCO, ANEXSIA 5/325MG TABLET (HYDROcodone/ACETAMINOPHEN) As Ordered ONE (11:50)
[2018-06-15] MEDS ORDERED: ONDANSETRON 4MG/2ML VIAL (J2405) IV PRN (12:00)
[2018-06-15] MEDS ORDERED: LR 1,000 ML IV SCH (12:00)
[2018-06-15] MEDS ORDERED: NORCO, ANEXSIA 5/325MG TABLET (HYDROcodone/ACETAMINOPHEN) PO PRN (12:00)
[2018-06-15] MEDS ORDERED: fentaNYL 100 MCG/2 ML INJECTION (J3010) IV PRN (12:00)
--- NOTE | 2018-06-15 12:43 | RO ---
DATE OF PROCEDURE: 06/15/2018 PREOPERATIVE DIAGNOSIS: Laryngeal lesion with possible supralaryngeal cancer. POSTOPERATIVE DIAGNOSIS: Supraglottic lesion base of the right epiglottis going close to the aryepiglottic fold pyriform sinus biopsy positive with frozen sections for invasive squamous cell carcinoma. SURGEON: Sushil Cantu Jr., MD PROGRAM MANUFACTURING LEADER: ANESTHESIA: General via endotracheal tube. INDICATIONS FOR PROCEDURE: A patient with flexible fiberoptic nasolaryngoscopy showing change in lesion suspicious for possible squamous cell carcinoma in a patient who is a heavy smoker and has been followed closely. PROCEDURE PERFORMED: Microsuspension laryngoscopy with biopsy frozen sections to the right hypopharyngeal base of tongue, as well as the laryngeal surface of the base of the epiglottis on the laryngeal surface again with frozen section. PROCEDURE IN DETAIL: With the patient in a supine position after being induced, intubated, prepped and draped, and turned 90 degrees, the Sue laryngoscope was used to evaluate the area. The left hypopharynx appeared to be clear. The patient has very large lingual tonsils bilaterally. The base of tongue otherwise was unremarkable. The right hypopharyngeal lesion that was present or concerning on CT scan was soft, and the pyriform sinus did not show any significant lesions. However, on the base of the laryngeal surface of the epiglottis, there was concern for invasive squamous cell carcinoma. Biopsy was taken under frozen section after the patient was placed in microsuspension, and this measured approximately a centimeter in size. It seemed to go from the lateral aspect of the base of the epiglottis to the arytenoid region on the right side. Biopsy came back on frozen section compatible with squamous cell carcinoma. Another bite was taken, as well. There was a little bit of mild inflammation over the right false local cord. True vocal cord did not appear to be involved, but there was some slight edema. Airway was patent and did not require any tracheotomy at this time. IMPRESSION: A patient with today biopsy-proven lesion measuring approximately 1 cm starting to break through the laryngeal surface of the base of the epiglottis. Stage T1, N0, M0 supraglottic CA. Estimated blood loss was less than 1 mL. There were no problems. No complications. The patient tolerated the procedure well. An LTA was placed to try and prevent any further issues. The patient was turned over to the fur blender. LUIS E
[2018-06-15 13:00] VITALS: BP 138/74
[2018-06-15] MEDS ORDERED: LIDOCAINE VISCOUS 2% SOLN 15ML UDC MT SCH (13:00)
== END 2018-06-15 13:20 | disposition home or self-care (01) ==
LOC: M SDC 08:01
PROVIDERS: ATTEND Otolaryngology
DX: C32.1 Malignant neoplasm of supraglottis (principal); E11.9 Type 2 diabetes mellitus without complications; I10 Essential (primary) hypertension; E78.5 Hyperlipidemia, unspecified; K21.9 Gastro-esophageal reflux disease without esophagitis; F41.9 Anxiety disorder, unspecified; F32.9 Major depressive disorder, single episode, unspecified; Z79.84 Long term (current) use of oral hypoglycemic drugs; Z79.899 Other long term (current) drug therapy; Z88.0 Allergy status to penicillin; Z88.8 Allergy status to other drugs, medicaments and biological substances; F17.210 Nicotine dependence, cigarettes, uncomplicated
CPT/HCPCS: 31536; 88305; 88342; J2250; J2370; J2405; J2710; J3010; Q9968

== ENCOUNTER → 2018-06-30 | Outpatient (CLI) | payer BC ==
[~2018-06-30] MED LIST changes: +PERC5TAB12 PO
--- NOTE | 2018-07-03 13:50 | RADONC ---
RADIATION ONCOLOGY CONSULTATION NOTE: DATE: 06/30/2018 CHART NUMBER: [id number] DIAGNOSIS: Epiglottis, supraglottic larynx cancer. STAGE: Staging in progress. ECOG PERFORMANCE STATUS: 0. Ms. 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 HISTORY OF PRESENT ILLNESS: The patient was in the usual state of health and apparently developed pain in her right ear and right jaw in late March,. It was thought that she had ill-fitting dentures and was referred for physical therapy. Apparently, she ill in February 2018 with acute hypoxic respiratory failure as well as acute on chronic renal disease. She has a history of COPD. Her pain in the neck and jaw continued and a CT scan was done on 03/29/2018 that showed a right pleural effusion and right lower lobe consolidation with atelectasis. On 05/29/2018, the patient did undergo transbronchial biopsies of her right lower lobe and subcarinal region and no malignancy was found. With regards to the patient's jaw pain, which she had been complaining about at least since March a CT scan of the neck was undertaken on 03/29/2018 and showed a small mass arising from the lateral wall of the hypopharynx with minimal mass effect on the hypopharynx follicular and pyriform sinus consistent with a neoplasm. A repeat MRI of the neck done 06/06/2018 confirmed a moderate homogeneous enhancement present arising in the right lateral wall of the hypopharynx with anterior extension into the base of the epiglottis and preepiglottic space. There was posterior extension into the posterior wall of the hypopharynx. The mass appeared to extend the inferior to the region of the false vocal cord. There was a minimal mass effect on the hypopharynx. The nasopharynx and oropharynx as well as subglottic trachea were normal in appearance. There were small lymph nodes less than 1 cm in size present in the internal jugular chain, posterior triangles and submandibular region. This showed no definitive change in size when compared to the CT scan from March. The patient was referred to Dr. Sushil Cantu and on 06/15/2018 underwent a biopsy of her right laryngeal surface last base of epiglottis. Pathology revealed invasive moderately differentiated squamous cell carcinoma staining p16 negative. The patient is now being referred to me for discussion of definitive external beam radiation therapy as well as for further staging workup and overall treatment planning. PAST MEDICAL HISTORY: The patient's past medical history is positive for hypertension, diabetes, emphysema, anxiety and depression as well as bronchitis. ALLERGIES: The patient is allergic to penicillin, sulfa drugs and prednisone. SOCIAL HISTORY: The patient smoked one pack of cigarettes per day for 47 years. She does not abuse alcohol. FAMILY HISTORY: The patient's family history is positive for a mother with colon cancer. REVIEW OF SYSTEMS: The patient's review of systems is positive for some jaw pain radiating to the ear as well as difficulty swallowing. She reports that she has lost 4 pounds. She says she has some blurriness of vision in the right eye and decreased energy due to depression. She denies nausea, vomiting, fevers, chills, night sweats, diplopia, urinary or bowel difficulties, bone pain or neurological problems. PHYSICAL EXAMINATION: The patient is well-developed, well-nourished white female in no acute distress. HEENT: Exam is normocephalic, atraumatic. Extraocular movements are intact. Examination of the patient's oral cavity reveals her to be edentulous. There is no nodularity or ulceration in the oral cavity itself. There seems to be some fullness in the lower right pharynx region. There is no palpable preauricular, cervical, supraclavicular, infraclavicular lymphadenopathy present. The lungs are clear to auscultation and percussion. Heart has regular rate and rhythm. Her abdomen is benign with no splenomegaly, masses or tenderness. MEDICAL NECESSITY: IMRT/IGRT is clinically indicated for the highly conformal dose planning required. The target volume is in close proximity to critical structures, such as the normal brain, brainstem, eyes, optic nerves, spinal cord, parotid glands, and mandible. The volume of interest must be covered with narrow margins to adequately protect immediately adjacent structures. The plan requires interpretation of complex testing such as CT localization. As noted above, special planning (IMRT) and localizing (IGRT) is required and essential to maximally protect sensitive normal tissue structures which cannot be accomplished using conventional 3-dimensional planning. ASSESSMENT: I have scheduled the patient for a PET/CT scan to be undertaken for further staging purposes. In addition, I have scheduled the patient to be seen by our medical oncologist to discuss the possibility of concomitant therapy. We will then coordinate her overall care. At this point she is still undergoing staging and final recommendations will be made once staging is complete. In addition, I have placed her on our discussion list for multidisciplinary tumor conference next Tuesday. Overall, I do believe at this point the patient appears to be a candidate for external beam radiation therapy. I have therefore discussed with her in detail the potential benefits as well as possible acute and chronic sequelae of external beam radiation therapy. We discussed logistics of treatment planning, simulation subsequent fractionated daily radiation treatments. Once again in summary, I have scheduled the patient for a staging PET/CT scan to be undertaken. We have set her up for consultation with our medical oncologist so that we can further coordinate and discuss her care. And I have placed her on discussion for multidisciplinary tumor conference for further recommendations. If all goes as anticipated, we will be setting her up for initiation of simulation and treatment planning with IMRT/IGRT radiation. Thank you for allowing us to participate in the care of this very pleasant woman. If I could be of any further assistance or provide you with any information, please feel free to contact me anytime always warm regards nausea.
== END ==
LOC: M ONCR 09:42
PROVIDERS: ATTEND Radiology Radiation Oncology
DX: C32.1 Malignant neoplasm of supraglottis (principal); E11.9 Type 2 diabetes mellitus without complications; I10 Essential (primary) hypertension; J44.9 Chronic obstructive pulmonary disease, unspecified; F41.9 Anxiety disorder, unspecified; Z88.8 Allergy status to other drugs, medicaments and biological substances; Z88.0 Allergy status to penicillin

== ENCOUNTER → 2018-07-05 | Outpatient (REF) | payer BC ==
[~2018-07-05] MED LIST changes: +OXYC-517 PO
== END ==
LOC: M LAB REF 09:17
PROVIDERS: ATTEND Internal Medicine Medical Oncology
DX: C32.1 Malignant neoplasm of supraglottis (principal)

== ENCOUNTER → 2018-07-11 | Outpatient (CLI) | payer BC ==
--- NOTE | 2018-07-12 10:19 | REP ---
PET/CT: History: Right-sided laryngeal carcinoma, Comparisons: Soft-tissue neck CT March 29, 2018. CT chest is reviewed from March 29, 2018 and May 12, 2018. TECHNIQUE: 50 minutes following the intravenous injection of a 8.79 mCi dose of F-18 FDG, three-dimensional PET scintigraphy is acquired from the skull base to the proximal thighs. Triplanar noncontrast CT scanning is acquired through the same anatomic range for attenuation correction, and image registration with scan parameters optimized to minimize radiation exposure to the patient. PET scintigraphy and CT datasets were fused and displayed on a workstation with multiplanar and projection display capability. PET/CT Findings: The right supraglottic mass is seen to be hypermetabolic. Maximum standard uptake value is 13.23. No abnormal hypermetabolic shawn uptake is seen within the head and neck soft tissues. There is a 1.5 cm spiculated nodule in the superior segment of the right lower lobe which shows hypermetabolic uptake. Maximum standard uptake value is 2.88. There is some adjacent ill-defined parenchymal opacification in the right lower lobe which appears somewhat improved from the prior CT study of May. This adjacent parenchymal opacity is not hypermetabolic. No other abnormal pulmonary parenchymal hypermetabolic uptake is seen. No hilar or mediastinal hypermetabolic uptake is noted. Non hypermetabolic pretracheal lymph node is visible. There is a 3.4 cm low density non hypermetabolic right adrenal nodule consistent with benign adenoma. No abnormal adrenal uptake is seen. No abnormal hypermetabolic uptake is seen within the liver or elsewhere in the abdomen or pelvis. Impression: Hypermetabolic uptake in the known right laryngeal supraglottic mass. No abnormal shawn uptake. There is a hypermetabolic spiculated nodule in the right lower lobe of the lung which must be considered suspicious for primary lung versus metastatic lesion. Electronically Signed by Bryan Loyola MD 07/12/2018 11:10 A
== END ==
LOC: M PLARAD 15:19
PROVIDERS: ATTEND Radiology Radiation Oncology
DX: C32.9 Malignant neoplasm of larynx, unspecified (principal); R91.8 Other nonspecific abnormal finding of lung field; R93.3 Abnormal findings on diagnostic imaging of other parts of digestive tract
CPT/HCPCS: 78815; A9552

== ENCOUNTER → 2018-07-28 | Outpatient (CLI) | payer BC ==
[~2018-07-28] MED LIST changes: +HYDR-643 PO; +LIDOCAINE 1% MDV 20ML VIAL As Ordered ONE; +MIDAZOLAM INJ 2 MG/2 ML VIAL (J2250) As Ordered ONE; +MIRT1TAB15 PO; +MIRT1TAB16 PO; +PERCOCET 5MG/325MG TAB As Ordered ONE
--- NOTE | 2018-07-28 14:14 | REP ---
Chest x-ray: Single view. History: Post biopsy chest x-ray. The patient is status post CT guided needle biopsy right lower lobe lung nodule. A small pneumothorax was visible on CT images at the conclusion of the biopsy. Comparison chest x-ray May 29, 2018. Findings: There is a small right-sided pneumothorax approximately 15% on the current radiograph. There is mild discoid atelectasis in the left base and right base. Heart is not enlarged. Impression: Small right-sided pneumothorax. Follow-up film will be obtained. Dr. José Miguel Stewart was consulted. Electronically Signed by Bryan Loyola MD 07/28/2018 02:05 P
--- NOTE | 2018-07-28 14:28 | REP ---
CHEST X-RAY: PA view. 02:01 p.m. film. HISTORY: Followup right-sided pneumothorax post biopsy. Comparison study 12:39 p.m. on this date. FINDINGS: A small right-sided pneumothorax is again seen essentially unchanged in size from the film done 1-1/2 hours earlier. Findings are otherwise unchanged. IMPRESSION: Stable small right-sided pneumothorax. Electronically Signed by Bryan Loyola MD 07/28/2018 03:20 P
--- NOTE | 2018-07-28 16:31 | REP ---
CT-GUIDED RIGHT LOWER LOBE LUNG BIOPSY The procedure was performed under the personal supervision of Dr. Loyola. The patient has a history of a 1.5 cm spiculated, hypermetabolic nodule in the superior segment of the right lower lobe seen on a previous PET scan performed on 07/11/2018. The risks and benefits of the procedure were explained to the patient and informed consent was obtained. The patient takes oxygen at home when she is lying down, therefore, we put HER 2 liters of O2 via nasal cannula. The right lower lobe lung nodule was localized using CT guidance. The skin was prepped and draped in a sterile fashion. 1% lidocaine was used as a local anesthetic. Using CT guidance a 19/20 gauge coaxial needle biopsy system was inserted and advanced into the nodule. As the needle was being advanced the patient did develop a right pneumothorax. Biopsies were able to be obtained with three core biopsies sent to lab for analysis. As much air as possible was aspirated from the pleural space. Follow-up CT images show some improvement in the right pneumothorax. CT images obtained 5 minutes later, however, show that the pneumothorax had gotten bigger. The patient is at she experienced pain and the level of eight out of 10. Her initial oxygen saturation was 98% when placed on oxygen initially. After the pneumothorax developed her O2 saturation. The 92%. Chest x-ray performed immediately after the procedure shows a small right-sided pneumothorax. Dr. Stewart was consulted at this time. He came to the department to see the patient. A follow-up chest x-ray was performed approximately hour later and the demonstrated a stable small right-sided pneumothorax. Her pain had resolved completely. Her O2 saturations were 92% as the were when she arrived off of oxygen. Dr. Stewart felt it was safe to discharge the patient from the department. Reviewed by BRIANA Mojica 07/28/2018 03:37 P Electronically Signed by Bryan Loyola MD 07/28/2018 04:23 P
== END ==
LOC: M RADPRO 10:43
PROVIDERS: ATTEND Radiology Radiation Oncology
DX: R91.8 Other nonspecific abnormal finding of lung field (principal); C32.1 Malignant neoplasm of supraglottis; J95.811 Postprocedural pneumothorax
CPT/HCPCS: 32405; 77012; 88305; J2250

== ENCOUNTER 2018-07-29 07:18 | Inpatient (IN) | payer BC ==
[~2018-07-29] VITALS: Ht 167.6 cm; Wt 74.2 kg
[2018-07-29] VITALS (24 sets, daily range): BP systolic 98–150; BP diastolic 52–84; O2SAT 98
[~2018-07-29 07:18] MED LIST changes: -LIDOCAINE 1% MDV 20ML VIAL As Ordered ONE; -MIDAZOLAM INJ 2 MG/2 ML VIAL (J2250) As Ordered ONE; -PERCOCET 5MG/325MG TAB As Ordered ONE
[2018-07-29] MEDS ORDERED: MIDAZOLAM INJ 2 MG/2 ML VIAL (J2250) As Ordered ONE ×2 (07:49→07:51)
[2018-07-29] MEDS ORDERED: LIDOCAINE 1% MDV 20ML VIAL As Ordered ONE (07:52)
[2018-07-29] MEDS ORDERED: FLUMAZENIL 0.5 MG/5 ML VIAL As Ordered ONE (07:53)
[2018-07-29 08:00] LABS: ABG BASE EXCESS -3.1 (-2.0-2.0); ABG HCO3 23.2 MEQ/L (22.0-26.0); ABG O2 SATURATION 89.7 % (95.0-99.0); ABG PARTIAL PRESSURE CO2 46.8 mmHg (35.0-45.0); ABG PARTIAL PRESSURE O2 61.3 mmHg (75.0-100.0); ABG STANDARD HCO3 21.7 MEQ/L (22.0-26.0); ABG TOTAL CO2 24.7 MEQ/L (23.0-31.0); ABG pH (ARTERIAL) 7.314 UNITS (7.350-7.450)
[2018-07-29] MEDS: LEVALBUTEROL 1.25 MG/0.5 ML CONCENTRATE NEB NEB SCH ×3 (08:00→20:55)
[2018-07-29 08:06] LABS: BASO # 0.1 10^3/uL (0.0-0.2); BASO % 0.5 % (0.0-1.0); EOS # 0.1 10^3/uL (0.0-0.50); EOS % 1.1 % (0.0-3.0); HEMATOCRIT 42.5 % (36.0-47.0); HEMOGLOBIN 12.8 g/dl (12.0-15.5); LYMPH # 4.3 10^3/uL (1.5-4.5); LYMPH % 32.5 % (24.0-44.0); MEAN CORPUSCULAR HGB CONC 30.1 g/dl (32.0-36.5); MEAN CORPUSCULAR VOLUME 86.4 fl (80.0-96.0); MONO # 0.7 10^3/uL (0.0-0.8); MONO % 5.1 % (0.0-5.0); NEUTROPHILS % 60.2 % (36.0-66.0); PLATELET COUNT, AUTOMATED 339 10^3/uL (150-450); RED BLOOD COUNT 4.92 10^6/uL (4.00-5.40); WHITE BLOOD COUNT 13.2 10^3/uL (4.0-10.0)
[2018-07-29] MEDS ORDERED: ONDANSETRON 4MG/2ML VIAL (J2405) IV PRN (08:30)
[2018-07-29] MEDS ORDERED: LEVALBUTEROL 1.25 MG/0.5 ML CONCENTRATE NEB NEB PRN (08:30)
[2018-07-29] MEDS ORDERED: BISACODYL 10 MG SUPP PR PRN (08:30)
[2018-07-29] MEDS ORDERED: ACETAMINOPHEN TAB 650MG DOSE (2X325MG) PO PRN (08:30)
[2018-07-29 08:37] LABS: BLOOD UREA NITROGEN 28 MG/DL (7-18); CREATININE FOR GFR 1.73 MG/DL (0.55-1.30); GLUCOSE, FASTING 159 MG/DL (70-100)
[2018-07-29 08:38] LABS: CALCIUM LEVEL 8.8 MG/DL (8.8-10.2); CARBON DIOXIDE LEVEL 27 MEQ/L (21-32); CHLORIDE LEVEL 100 MEQ/L (98-107); CK-MB VALUE MASS < 1.0 NG/ML (<3.6); CPK CREATINE PHOSPHOKINASE 40 U/L (26-192); GLOMERULAR FILTRATION RATE 31.6 (>45); MB/CK RELATIVE INDEX 0.03 (< OR =4); POTASSIUM SERUM 4.6 MEQ/L (3.5-5.1); SODIUM LEVEL 137 MEQ/L (136-145); TROPONIN I < 0.02 NG/ML (< 0.10)
[2018-07-29] MEDS: PERCOCET 5MG/325MG TAB PO PRN ×3 (08:58→18:31)
[2018-07-29] MEDS: KETOROLAC 30 MG/ML VIAL (J1885) IV SCH ×3 (08:59→21:00)
[2018-07-29] MEDS: DOCUSATE SODIUM 100 MG CAP PO SCH ×2 (08:59→20:21)
[2018-07-29] MEDS: MOM 30ML SUSPENSION UDC PO SCH (08:59)
[2018-07-29] MEDS: HEPARIN SOD (PORCINE) 5000 UNITS/ML VIAL SC SCH ×2 (08:59→20:22)
[2018-07-29] MEDS: PANTOPRAZOLE 40MG TAB (PROTONIX) PO SCH (08:59)
[2018-07-29] MEDS: KCL 20MEQ IN D5/NS 1000ML 1,000 ML IV SCH ×2 (09:00→21:45)
[2018-07-29 09:27] LABS: ABG BASE EXCESS -2.6 (-2.0-2.0); ABG HCO3 23.3 MEQ/L (22.0-26.0); ABG O2 SATURATION 96.6 % (95.0-99.0); ABG PARTIAL PRESSURE CO2 44.3 mmHg (35.0-45.0); ABG PARTIAL PRESSURE O2 87.7 mmHg (75.0-100.0); ABG STANDARD HCO3 22.3 MEQ/L (22.0-26.0); ABG TOTAL CO2 24.6 MEQ/L (23.0-31.0); ABG pH (ARTERIAL) 7.338 UNITS (7.350-7.450)
[2018-07-29] MEDS ORDERED: hydrOXYzine 10 MG TAB PO PRN (09:30)
[2018-07-29] MEDS: TIOTROPIUM INHALER/CAPSULE (SPIRIVA) INH SCH (09:40)
[2018-07-29] MEDS ORDERED: PILL CRUSHER/CUTTER 1 EACH XX PRN (09:45)
--- NOTE | 2018-07-29 09:58 | HPE ---
DATE OF ADMISSION: 07/29/2018 Patient was seen at the emergent request of the emergency room for a tension pneumothorax. HISTORY OF PRESENT ILLNESS: Patient is a 63-year-old white female who underwent a lung biopsy yesterday. After lung biopsy, she felt pain and she was found to have an approximate 10% pneumothorax. Within an hour of the biopsy, her pain had disappeared and her shortness of breath had resolved. Her succeeding film showed no change, if not some slight improvement in the pneumothorax. She was therefore sent home with the caveat that she would come back in if she got short of breath. As she was going to bed, she felt some more pain and could not lay on her right side, and then therefore slept on her left side. She felt a little bit more short of breath at about 5 o'clock this morning and then went to the bathroom, had a bowel movement and all of the sudden became suddenly short of breath. She was brought by EMS to the emergency room. She was found to have a tension pneumothorax and she was immediately placed in the intensive care unit (ICU) where a chest tube was placed with immediate relief. The lesion that was biopsied yesterday was in the right lower lobe. She carries a diagnosis of head and neck cancer that was diagnosed within the last 2 months and she has been simulated for radiation therapy and she is to start radiation therapy and chemotherapy very soon. She is a former smoker and there is concern that this may represent another metastasis or a lung primary. Prior to the biopsy, she had no problems with shortness of breath. She has a chronic cough with white to yellow sputum production. She has had no fevers, chills or sweats. Over the past 2 months, however, she has lost about 20 pounds in weight because she has had no appetite. She has no true dysphagia although she has had pain in her throat since May 2017. Her decreased oral intake is secondary to both the pain and her lack of appetite over the past 2 months. She has no true dysphagia. Prior to the biopsy, there was no chest pain. PAST MEDICAL ILLNESSES: Hypertension. Diabetes. Hypercholesterolemia. Chronic obstructive pulmonary disease (COPD). Bronchitis. Anxiety and depression. PAST SURGERIES: Prior bronchoscopy this May for transbronchial biopsies of the right lower lobe which did not identify malignancy. Various orthopedic surgeries for radius and her hip. ALLERGIES: PENICILLIN, SULFA, PREDNISONE. MEDICATIONS AT HOME: - Nexium 40 mg daily - ezetimibe/simvastatin 10-80 one by mouth daily at bedtime - hydroxyzine 10 mg by mouth as needed anxiety - Combivent one puff four times daily as needed shortness of breath - irbesartan 75 mg daily - metformin 1000 mg by mouth twice daily - mirtazapine 50 mg by mouth daily at bedtime - oxycodone 5 mg four times daily as needed pain - tiotropium/olodaterol two puffs daily - trazodone 50 mg by mouth daily at bedtime TRAVEL HISTORY: None outside [facility]. EXPOSURES: She has a cat at home. No dogs or birds. No exposures to tuberculosis. 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 No asbestos exposure. HABITS: Smoked almost all her life of one pack per day. She is still smoking. She does not use alcohol and there are no elicit drugs. FAMILY HISTORY: Not relevant to the acute situation. REVIEW OF SYSTEMS: Constitutional: Without fevers, chills, sweats or night sweats. Weight loss as noted above. Eyes: Without diplopia. Without amaurosis fugax, without prior jaundice. Nose without epistaxis. Mouth: Has false teeth. Respiratory: See history of present illness. Cardiac: See history of present illness. Without tachycardia or palpitations prior to today's episode. Without peripheral edema, intermittent claudication or prior history of myocardial infarctions. Does have hypertension. GI: Without nausea, vomiting, diarrhea, constipation, melena, hematochezia or hematemesis. : Without hematuria, dysuria or history of renal stones. Neurologic: Without paresthesias, paralysis or prior seizures. Endocrine: With diabetes, without thyroid disease. Psychiatric: With anxiety and depression. PHYSICAL EXAMINATION: Well developed, well nourished white female in acute respiratory distress. Vital signs: Temperature 97.6, pulse 145, respiratory rate of 32 with the use of accessory muscles, blood pressure 138/74, and she is 94% saturated on 6 liters nasal cannula. Eyes: Pupils equal, round and reactive to light. Extraocular movement intact. Sclera anicteric. Nose without deformity. Mouth shows mucous membranes to be pink and moist. Lips and commissures without lesions. There is no thrush. She is edentulous. Neck is supple, there is no subcutaneous emphysema. No jugular venous distention. Trachea is shifted to the left. There are no carotid bruits. She has 2+ carotid upstrokes but tachycardic. There is no lymphadenopathy or thyromegaly. Lungs show markedly decreased breath sounds on the right side. Left side shows expiratory wheezing. She is quite labored. Cardiac exam shows tachycardia without murmurs, clicks, gallops or rubs. I cannot feel her PMI. S1 and S2 are normal. Abdomen is soft, nontender, bowel sounds are positive. There is no hepatomegaly. No CVA tenderness. Extremities show no pretibial edema. No calf tenderness. No differential swelling of the upper extremities. Skin is warm, dry and perfused without cyanosis or mottling including that of the nail beds and knees. Neuro shows II through XII intact with gross motor and gross sensation intact. Gait is not tested. Psychiatric shows her to be appropriately anxious. It should be noted that the physical examination except for the lung examination was done after the chest tube was placed. INVESTIGATIONS: White count is 13.2 with hemoglobin and hematocrit of 12.8 and 42.5 with a platelet count of 339. Differential shows 60% neutrophils, 32% lymphocytes, 5% monocytes. There are no immature forms. No toxic granulations. Chemistries show normal electrolytes with BUN and creatinine of 28 and 1.73. Her last normal BUN and creatinine was on 06/09/2018. Troponin was less than 0.02. Blood gases today in the emergency room showed a pH of 7.31, pCO2 of 36, pO2 of 61 with base excess of -3.1. Her chest x-ray shows a tension pneumothorax with a shift to the left. She has a 60% pneumothorax with severe compression of the right lower lobe. Surprisingly there is no subcutaneous emphysema. IMPRESSION: 1. Tension pneumothorax status post lung biopsy yesterday. 2. Head and neck cancer. 3. Right lower lobe lesion, pathology pending. Either metastatic or primary. 4. Diabetes. 5. Hypertension. 6. Renal insufficiency. 7. Hyperlipidemia. 8. Chronic obstructive pulmonary disease (COPD). 9. Anxiety. 10. Depression. 11. Bronchitis. 12. Respiratory failure PLAN AND DISCUSSION: Chest tube was immediately placed upon arrival in the intensive care unit (ICU). There was immediate relief. It was done with conscious sedation. We will keep her chest tube to suction and observe her over the next 2 days. LUIS E
[2018-07-29] MEDS: IRBESARTAN 150 MG TAB PO SCH (12:05)
[2018-07-29] MEDS: metFORMIN (GLUCOPHAGE) 500 MG TAB PO SCH ×2 (12:06→20:21)
[2018-07-29] MEDS ORDERED: MIDAZOLAM INJ 2 MG/2 ML VIAL (J2250) IV ONE (12:45)
[2018-07-29] MEDS ORDERED: LIDOCAINE 1% MDV 20ML VIAL SC ONE (12:45)
[2018-07-29] MEDS: NORCO, ANEXSIA 5/325MG TABLET (HYDROcodone/ACETAMINOPHEN) PO PRN ×2 (16:02→20:21)
[2018-07-29] MEDS: traZODone 50 MG TAB PO SCH (20:21)
[2018-07-30] VITALS (9 sets, daily range): BP systolic 108–132; BP diastolic 56–113; O2SAT 98
[2018-07-30] MEDS: PERCOCET 5MG/325MG TAB PO PRN ×5 (00:27→23:37)
[2018-07-30] MEDS: LEVALBUTEROL 1.25 MG/0.5 ML CONCENTRATE NEB NEB SCH ×4 (00:40→19:39)
[2018-07-30] MEDS: KETOROLAC 30 MG/ML VIAL (J1885) IV SCH ×4 (03:00→19:40)
[2018-07-30 04:54] LABS: BASO % 0.1 % (0.0-1.0); EOS % 0.1 % (0.0-3.0); HEMATOCRIT 34.1 % (36.0-47.0); LYMPH # 1.7 10^3/uL (1.5-4.5); LYMPH % 24.9 % (24.0-44.0); MEAN CORPUSCULAR HEMOGLOBIN 25.5 pg (27.0-33.0); MEAN CORPUSCULAR VOLUME 86.1 fl (80.0-96.0); MONO # 0.6 10^3/uL (0.0-0.8); MONO % 8.5 % (0.0-5.0); NEUTROPHILS # 4.5 10^3/uL (1.8-7.7); PLATELET COUNT, AUTOMATED 257 10^3/uL (150-450); RED BLOOD COUNT 3.96 10^6/uL (4.00-5.40); WHITE BLOOD COUNT 6.8 10^3/uL (4.0-10.0)
[2018-07-30 05:06] LABS: HEMOGLOBIN 10.1 g/dl (12.0-15.5)
[2018-07-30 05:13] LABS: CREATININE FOR GFR 1.74 MG/DL (0.55-1.30); GLOMERULAR FILTRATION RATE 31.4 (>45)
[2018-07-30 06:03] LABS: ABG BASE EXCESS -0.4 (-2.0-2.0); ABG HCO3 25.3 MEQ/L (22.0-26.0); ABG O2 SATURATION 96.6 % (95.0-99.0); ABG PARTIAL PRESSURE CO2 46.1 mmHg (35.0-45.0); ABG PARTIAL PRESSURE O2 85.9 mmHg (75.0-100.0); ABG STANDARD HCO3 24.2 MEQ/L (22.0-26.0); ABG TOTAL CO2 26.8 MEQ/L (23.0-31.0); ABG pH (ARTERIAL) 7.358 UNITS (7.350-7.450)
[2018-07-30] MEDS: NORCO, ANEXSIA 5/325MG TABLET (HYDROcodone/ACETAMINOPHEN) PO PRN ×4 (06:31→21:32)
[2018-07-30] MEDS: TIOTROPIUM INHALER/CAPSULE (SPIRIVA) INH SCH (07:52)
--- NOTE | 2018-07-30 08:03 | RO ---
DATE OF PROCEDURE: 07/29/2018 PREPROCEDURE DIAGNOSIS: Tension pneumothorax right side. POSTPROCEDURE DIAGNOSIS: Tension pneumothorax right side. PROCEDURE: Insertion of right anterior superior chest tube. SURGEON: José Miguel Stewart MD OSTEOLOGY TEACHER: ANESTHESIA: DESCRIPTION OF PROCEDURE: Under satisfactory moderate sedation achieved with 4 mg of Versed, the patient was prepped and draped in the usual sterile fashion. First intercostal space over the second rib was infiltrated with 1% lidocaine. Incision was made and a tunnel was created in the chest without difficulty. A #20 chest tube was placed. Chest tube was secured to the chest wall with #2 Tevdek suture and connected to the Pleur-evac. The patient tolerated the procedure well and a chest x-ray is pending.
[2018-07-30] MEDS: PANTOPRAZOLE 40MG TAB (PROTONIX) PO SCH (08:53)
[2018-07-30] MEDS: IRBESARTAN 150 MG TAB PO SCH (08:53)
[2018-07-30] MEDS: metFORMIN (GLUCOPHAGE) 500 MG TAB PO SCH ×2 (08:54→20:07)
[2018-07-30] MEDS: HEPARIN SOD (PORCINE) 5000 UNITS/ML VIAL SC SCH ×2 (08:55→20:08)
[2018-07-30] MEDS: MOM 30ML SUSPENSION UDC PO SCH (08:55)
[2018-07-30] MEDS: DOCUSATE SODIUM 100 MG CAP PO SCH ×2 (08:55→20:07)
--- NOTE | 2018-07-30 09:07 | REP ---
Portable chest, 07:31 a.m., single AP view, the patient is upright: Comparison is 07/28/2018. There is a large right pneumothorax has significantly increased in size. Left lung is clear. Cardiac size is normal. Skeletal structures are unremarkable. Impression: Large right pneumothorax has significantly increased from 07/28/2018. Electronically Signed by Chauncey Gabriel MD 07/29/2018 07:38 A
--- NOTE | 2018-07-30 09:10 | REP ---
Portable chest, 8:37 a.m., single AP view, the patient is upright, post right thoracotomy tube: The comparison is from 07:31 a.m. earlier today. There has been interval placement of a right thoracotomy tube with the tip in the right apex. The previous large right pneumothorax is no longer present. There is minor atelectasis inferiorly in the right lung. Left lung is clear. Cardiac size normal. The pino, mediastinum, skeletal structures are unchanged. Electronically Signed by Chauncey Gabriel MD 07/29/2018 08:47 A
--- NOTE | 2018-07-30 10:08 | REP ---
REASON: Followup pneumothorax. COMPARISON: Multiple, latest yesterday. Right sided thoracotomy tube is unchanged. Cardiomediastinal silhouette is unchanged. The lung schultz are stable. There is no new abnormal opacity or pneumothorax. There is no change in the osseous structures. IMPRESSION: No significant change. There is a tiny right pleural effusion. Electronically Signed by Urbano Post DO 07/30/2018 01:50 P
[2018-07-30] MEDS: traZODone 50 MG TAB PO SCH (20:07)
--- NOTE | 2018-07-30 20:39 | ECGEPIP ---
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
[2018-07-31] VITALS: BP_DIAS 113
[2018-07-31] MEDS: LEVALBUTEROL 1.25 MG/0.5 ML CONCENTRATE NEB NEB SCH ×4 (00:56→20:23)
[2018-07-31] MEDS: KETOROLAC 30 MG/ML VIAL (J1885) IV SCH ×4 (03:00→21:00)
[2018-07-31 04:00] VITALS: BP 104/59
[2018-07-31] MEDS: PERCOCET 5MG/325MG TAB PO PRN ×4 (04:30→21:03)
[2018-07-31 05:24] LABS: BASO % 0.4 % (0.0-1.0); EOS # 0.1 10^3/uL (0.0-0.50); EOS % 1.1 % (0.0-3.0); HEMATOCRIT 32.6 % (36.0-47.0); HEMOGLOBIN 9.7 g/dl (12.0-15.5); LYMPH # 3.1 10^3/uL (1.5-4.5); LYMPH % 43.1 % (24.0-44.0); MEAN CORPUSCULAR HEMOGLOBIN 25.5 pg (27.0-33.0); MEAN CORPUSCULAR HGB CONC 29.8 g/dl (32.0-36.5); MEAN CORPUSCULAR VOLUME 85.8 fl (80.0-96.0); MONO # 0.4 10^3/uL (0.0-0.8); MONO % 5.3 % (0.0-5.0); NEUTROPHILS # 3.6 10^3/uL (1.8-7.7); NEUTROPHILS % 49.8 % (36.0-66.0); PLATELET COUNT, AUTOMATED 251 10^3/uL (150-450); WHITE BLOOD COUNT 7.1 10^3/uL (4.0-10.0)
[2018-07-31 05:46] LABS: CALCIUM LEVEL 8.1 MG/DL (8.8-10.2); CREATININE FOR GFR 1.48 MG/DL (0.55-1.30); GLOMERULAR FILTRATION RATE 37.8 (>45); POTASSIUM SERUM 4.8 MEQ/L (3.5-5.1)
[2018-07-31] MEDS: NORCO, ANEXSIA 5/325MG TABLET (HYDROcodone/ACETAMINOPHEN) PO PRN ×2 (07:44→13:34)
[2018-07-31] MEDS: TIOTROPIUM INHALER/CAPSULE (SPIRIVA) INH SCH (07:53)
--- NOTE | 2018-07-31 07:58 | IPN ---
DATE: 07/30/2018 Ms. Altamirano is certainly doing a lot better than she was when she came in yesterday. She is breathing well. She has pain with coughing posteriorly where the chest tube is located. Her vital signs show a T-max of 98.3 with a heart rate that ranges between 67 and 74 in a sinus rhythm, a respiratory rate of 15 to 18 without the use of accessory muscles, who is 94% saturated on 3 liters nasal cannula, and whose blood pressure is ranging between 108/56 to 118/60. Her intake and output over the past 24 hours has been recorded as 1965 in and 225 out for a positivity of 1740 mL. She has put nothing out the chest tube and there is no air leak. Weight is pending today. On physical examination, she has equal breath sounds on either side. I hear some occasional rhonchi. Percussion note is full to the diaphragm. Cardiac exam is without murmurs, clicks, gallops or rubs. I cannot feel her PMI. S1 and S2 are normal. Abdomen is soft and nontender. Bowel sounds are positive. There is no hepatomegaly and no CVA tenderness. Extremities show no pretibial edema. No calf tenderness. No differential swelling of the upper extremities. Skin is warm, dry and perfused, without cyanosis or mottling, including the nail beds and knees. Neck is supple. There is no jugular venous distention. No subcutaneous emphysema. Trachea is midline. Mouth shows her mucous membranes to be pink and moist. Lips and commissures without lesions. There is no thrush. Eyes show her pupils to be equal and reactive. Extraocular movements intact. Sclerae nonicteric. Neurologic showed II-XII intact along with gross motor and gross sensation intact. Gait is not tested. Psychiatric shows her to be awake, alert and oriented times three with appropriate mood and affect and conversational. Her white count today is 6.8 down from 13.2 yesterday. Hemoglobin and hematocrit are 10.1 and 34.1, down from 12.8 and 42.0, secondary to hemodilution. Platelet count is 257,000. Differential shows 66% neutrophils, 24% lymphocytes, 8% monocytes. There are no immature forms and no toxic granulations. Her chemistries show normal electrolytes with a BUN and creatinine of 37 and 1.74 respectively. Glucose is 193 with a calcium of 8.0. Her chest x-ray shows her lung fully expanded to the chest wall. Chest tube is in a good place. I see no subcutaneous emphysema. The mediastinum is at the midline. Costophrenic angles are sharp. IMPRESSION: 1. Tension pneumothorax status post lung biopsy. 2. Head and neck cancer. 3. Right lower lobe lesion, pathology pending. 4. Diabetes. 5. Hypertension. 6. Renal insufficiency. 7. Hyperlipidemia. 8. Chronic obstructive pulmonary disease. 9. Anxiety. 10. Depression. 11. Bronchitis. 12. Respiratory failure, resolved. PLAN AND DISCUSSION: I will take her off suction today. Hopefully, she will spontaneously diurese. I will not diurese her today.
[2018-07-31 08:00] VITALS: BP 133/73
--- NOTE | 2018-07-31 08:12 | REP ---
Chest x-ray: Two views. History: Pneumothorax. Comparison chest x-ray: July 30, 2018. Findings: A right apical chest tube remains in place. There is discoid atelectasis in the right base moderate in degree. Minimal discoid atelectasis is seen in the left base. EKG electrodes are noted. There is no visible pneumothorax. No hydrothorax is seen. Impression: Bibasilar plate-like atelectasis. Right chest tube in place at the apex. No visible pneumothorax. Electronically Signed by Bryan Loyola MD 07/31/2018 08:03 A
[2018-07-31] MEDS: MOM 30ML SUSPENSION UDC PO SCH (09:00)
[2018-07-31] MEDS: DOCUSATE SODIUM 100 MG CAP PO SCH ×2 (09:16→22:01)
[2018-07-31] MEDS: HEPARIN SOD (PORCINE) 5000 UNITS/ML VIAL SC SCH ×2 (09:16→22:00)
[2018-07-31] MEDS: PANTOPRAZOLE 40MG TAB (PROTONIX) PO SCH (09:16)
[2018-07-31] MEDS: metFORMIN (GLUCOPHAGE) 500 MG TAB PO SCH ×2 (09:16→22:00)
[2018-07-31] MEDS: IRBESARTAN 150 MG TAB PO SCH (10:22)
[2018-07-31] MEDS ORDERED: SLF 3 ML SYR IV PRN (11:00)
[2018-07-31 12:00] VITALS: BP 128/67
[2018-07-31] MEDS: SLF 3 ML SYR IV SCH ×2 (13:59→22:00)
[2018-07-31 16:00] VITALS: BP 119/69
[2018-07-31 20:00] VITALS: BP 135/63
[2018-07-31] MEDS: traZODone 50 MG TAB PO SCH (22:01)
[2018-08-01] VITALS: BP 109/65
[2018-08-01] MEDS: PERCOCET 5MG/325MG TAB PO PRN (01:20)
[2018-08-01] MEDS: LEVALBUTEROL 1.25 MG/0.5 ML CONCENTRATE NEB NEB SCH ×2 (01:30→08:18)
[2018-08-01] MEDS: KETOROLAC 30 MG/ML VIAL (J1885) IV SCH ×2 (03:00→09:00)
[2018-08-01 04:00] VITALS: BP 110/68
[2018-08-01] MEDS: SLF 3 ML SYR IV SCH (06:00)
[2018-08-01 06:09] LABS: BASO % 0.6 % (0.0-1.0); EOS # 0.2 10^3/uL (0.0-0.50); HEMATOCRIT 35.7 % (36.0-47.0); HEMOGLOBIN 10.5 g/dl (12.0-15.5); LYMPH # 2.9 10^3/uL (1.5-4.5); MEAN CORPUSCULAR HEMOGLOBIN 26.2 pg (27.0-33.0); MEAN CORPUSCULAR HGB CONC 29.4 g/dl (32.0-36.5); MONO # 0.4 10^3/uL (0.0-0.8); MONO % 5.9 % (0.0-5.0); NEUTROPHILS # 3.1 10^3/uL (1.8-7.7); NEUTROPHILS % 46.2 % (36.0-66.0); PLATELET COUNT, AUTOMATED 270 10^3/uL (150-450); RED BLOOD COUNT 4.01 10^6/uL (4.00-5.40); WHITE BLOOD COUNT 6.6 10^3/uL (4.0-10.0)
[2018-08-01] MEDS: NORCO, ANEXSIA 5/325MG TABLET (HYDROcodone/ACETAMINOPHEN) PO PRN ×2 (06:19→11:37)
[2018-08-01 06:33] LABS: CALCIUM LEVEL 8.3 MG/DL (8.8-10.2); CREATININE FOR GFR 1.4 MG/DL (0.55-1.30); GLOMERULAR FILTRATION RATE 40.3 (>45); POTASSIUM SERUM 5.2 MEQ/L (3.5-5.1)
[2018-08-01 08:00] VITALS: BP 131/74
--- NOTE | 2018-08-01 08:02 | IPN ---
DATE: 07/31/2018 Ms. Altamirano is breathing well today. Her chest tube is not leaking and has put out minimal output. Her pain is being well controlled. Her vital signs show a T-max of 97.2 with a heart rate that ranges between 71 and 80 in a sinus rhythm, a respiratory rate of 17 59 18 without the use of accessory muscles, who is 94% saturated on 1 liter nasal cannula, and whose blood pressure is ranging between 128/67 to 119/69. Her intake and output over the past 24 hours has been recorded as 1275 in and 550 out for a positivity of 725 mL. She has put nothing out the chest tube and there is no air leak. Weight today is 72.8 kg compared to 72.9 kg yesterday. On physical examination, she has equal breath sounds on either side. I hear some occasional rhonchi which clear with coughing. Percussion note is full to the diaphragm. Cardiac exam is without murmurs, clicks, gallops or rubs. I cannot feel her PMI. S1 and S2 are normal. Abdomen is soft and nontender. Bowel sounds are positive. There is no hepatomegaly and no CVA tenderness. Extremities show no pretibial edema. No calf tenderness. No differential swelling of the upper extremities. Skin is warm, dry and perfused, without cyanosis or mottling, including that of the nail beds and knees. Neck is supple. There is no jugular venous distention. No subcutaneous emphysema. Trachea is midline. Mouth shows her mucous membranes to be pink and moist. Lips and commissures without lesions. There is no thrush. Eyes show her pupils to be equal and reactive. Extraocular movements intact. Sclerae nonicteric. Neurologic showed II-XII intact along with gross motor and gross sensation intact. Gait is not tested. Psychiatric shows her to be awake, alert and oriented times three with appropriate mood and affect and conversational. Her white count today is 7.1 with hemoglobin and hematocrit of 9.7 and 32.6. Platelet count is 251,000. Differential shows 49% neutrophils, 43% lymphocytes, 5% monocytes. There are no immature forms and no toxic granulations. Her electrolytes are normal with a BUN and creatinine that are improving to 34 and 1.48 from 37 and 1.74 yesterday. Glucose is 101 with a lactic acid of 8.1. Her chest x-ray shows her lung fully expanded to the chest wall with sharp costophrenic angles. There is no pneumothorax and no subcutaneous emphysema. IMPRESSION: 1. Tension pneumothorax status post lung biopsy, resolved. 2. Head and neck cancer, undergoing radiation therapy. 3. Right lower lobe lesion with final pathology of non-malignant fibrosis consistent with resolving pneumonia. 4. Diabetes. 5. Hypertension. 6. Renal insufficiency. 7. Hyperlipidemia. 8. Chronic obstructive pulmonary disease. 9. Anxiety. 10. Depression. 11. Bronchitis. 12. Respiratory failure, resolved. PLAN AND DISCUSSION: I will remove her chest tube today. I have informed her of her results. Dr. Galvez is in agreement with the interpretation and she has already been biopsied once. Hopefully, we will be able to send her home tomorrow.
[2018-08-01] MEDS: TIOTROPIUM INHALER/CAPSULE (SPIRIVA) INH SCH (08:18)
[2018-08-01] MEDS: MOM 30ML SUSPENSION UDC PO SCH (09:00)
[2018-08-01] MEDS: HEPARIN SOD (PORCINE) 5000 UNITS/ML VIAL SC SCH (09:02)
[2018-08-01 09:03] VITALS: BP 131/74
[2018-08-01] MEDS: IRBESARTAN 150 MG TAB PO SCH (09:03)
[2018-08-01] MEDS: PANTOPRAZOLE 40MG TAB (PROTONIX) PO SCH (09:03)
[2018-08-01] MEDS: DOCUSATE SODIUM 100 MG CAP PO SCH (09:03)
[2018-08-01] MEDS: metFORMIN (GLUCOPHAGE) 500 MG TAB PO SCH (09:03)
--- NOTE | 2018-08-01 10:09 | REP ---
Chest x-ray: Two views. History: Pneumothorax. Comparison study: July 31, 2018. Findings: The right chest tube has been removed in the interval since yesterday's chest x-ray. There is bibasilar plate-like atelectasis unchanged. There is no visible pneumothorax or hydrothorax. Heart is not enlarged. No new infiltrate. Impression: Bibasilar plate-like atelectasis persists. Right chest tube removed. Electronically Signed by Bryan Loyola MD 08/01/2018 08:27 P
--- NOTE | 2018-08-01 14:58 | DSES ---
DATE OF ADMISSION: 07/29/2018 DATE OF DISCHARGE: 08/01/2018 DISCHARGE DIAGNOSES: 1. Tension pneumothorax status post lung biopsy resolved. 2. Head and neck cancer undergoing radiation therapy. 3. Right lower lobe lesion, nonmalignant fibrosis consistent with resolving pneumonia. 4. Diabetes. 5. Hypertension. 6. Renal insufficiency. 7. Hyperlipidemia. 8. Chronic obstructive pulmonary disease (COPD). 9. Anxiety. 10. Depression. 11. Bronchitis. 12. Respiratory failure, resolved. HOSPITAL COURSE: The patient is a 63-year-old female who the day before underwent a lung biopsy. She was found to have a 10% pneumothorax which was first accompanied by pain and shortness of breath. Over a period of time it resolved, however early the next morning she became very short of breath after having a bowel movement and straining of stool. She came to the emergency room with a tension pneumothorax for which a chest tube was immediately placed. Her air leak stopped the first hospital day and the chest tube was discontinued from suction. Chest tube was removed on the second hospital day. Her chest x-ray on discharge showed her lung fully expanded to the chest wall. She is to resume radiation therapy this week and will be followed up with a chest x-ray. I will not need to see her in the office. She is being discharged on her home medications which include: - Nexium 40 mg daily - ezetimibe/simvastatin 10-80 one at bedtime - hydroxyzine 10 mg twice a day as needed for anxiety - Combivent one puff four times a day as needed for shortness of breath - irbesartan 75 mg daily - metformin 1000 mg twice a day - mirtazapine 50 mg at bedtime - oxycodone 5 mg four times a day as needed for pain - Stiolto two puffs daily - trazodone 50 mg at bedtime
== END 2018-08-01 12:12 | disposition home or self-care (01) | DRG 143 ==
LOC: M ED 07:18 → EDBD 07:18 → M ED INP 07:59 → M ED 08:05 → M ICU 08:09 → M PCU 07-30 21:43
PROVIDERS: ADMIT Thoracic Surgery (Cardiothoracic Vascular Surgery); ATTEND Thoracic Surgery (Cardiothoracic Vascular Surgery)
PROC: 0W9900Z Drainage of Right Pleural Cavity with Drainage Device, Open Approach (ICD-10-PCS; principal; 2018-07-29)
DX: J95.811 Postprocedural pneumothorax (principal); J96.90 Respiratory failure, unspecified, unspecified whether with hypoxia or hypercapnia; J84.10 Pulmonary fibrosis, unspecified; C76.0 Malignant neoplasm of head, face and neck; I10 Essential (primary) hypertension; E11.9 Type 2 diabetes mellitus without complications; E78.00 Pure hypercholesterolemia, unspecified; J44.9 Chronic obstructive pulmonary disease, unspecified; F41.9 Anxiety disorder, unspecified; F32.9 Major depressive disorder, single episode, unspecified; F17.200 Nicotine dependence, unspecified, uncomplicated; Z88.0 Allergy status to penicillin; Z88.2 Allergy status to sulfonamides; Z88.8 Allergy status to other drugs, medicaments and biological substances; Z79.84 Long term (current) use of oral hypoglycemic drugs; Z79.891 Long term (current) use of opiate analgesic; Z79.899 Other long term (current) drug therapy

== ENCOUNTER 2018-08-04 08:27 | Day surgery (SDC) | payer BC ==
[~2018-08-04] VITALS: Ht 167.6 cm; Wt 70.9 kg
[~2018-08-04 08:27] MED LIST changes: +LR 1,000 ML IV SCH
[2018-08-04] MEDS ORDERED: PROPOFOL 200 MG/20 ML VIAL As Ordered ONE (09:21)
[2018-08-04] MEDS ORDERED: LIDOCAINE 2% INJ 100 MG/5 ML SDV (FOR ANES.) As Ordered ONE (09:21)
[2018-08-04] MEDS ORDERED: fentaNYL 100 MCG/2 ML INJECTION (J3010) As Ordered ONE (09:24)
[2018-08-04] MEDS ORDERED: MIDAZOLAM INJ 2 MG/2 ML VIAL (J2250) As Ordered ONE (09:24)
[2018-08-04 11:50] VITALS: BP 153/79
[2018-08-07] MEDS ORDERED: OXYC-517 PO (08:50)
--- NOTE | 2018-08-08 07:45 | RO ---
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 PROCEDURE: Upper endoscopy with placement of percutaneous endoscopic gastrostomy (PEG) tube. SURGEON: Dr. Chauncey Richmond REGISTRY RN: None. ANESTHESIA: IV sedation with 5 mL of 1% lidocaine local. COMPLICATIONS: None. INDICATIONS FOR PROCEDURE: The patient is a 63-year-old female who presents with epiglottic cancer and planning to start radiation this coming Tuesday. Recommendation was to proceed with PEG tube placement. Risks and benefits of the procedure not limited to, but including bleeding, infection, damage to surrounding structures, perforation and need for further surgery were discussed in detail with the patient, informed consent was obtained and the procedure was planned. DESCRIPTION OF PROCEDURE: The patient was brought back to operating room four. After sufficient sedation the upper abdomen was sterilely prepped and draped. Next a time-out was done to confirm proper patient and proper procedure. Following that the endoscope was passed down into the stomach. The stomach was insufflated. I was able to transilluminate through the anterior abdominal wall as well as palpate and find a safe position in the body of the stomach for tube placement. Next the skin was numbed up with the lidocaine followed by 5 mm incision with the 11 blade scalpel. Next the needle was passed through the abdominal wall into the stomach. A guidewire was passed through, grabbed with a snare from the scope and brought out through the oropharynx. The 20-[place] HARRISON tube was then passed over top of the guidewire and brought out through the abdominal wall to approximately the 3 cm andria where the bumper was placed. The tube was then clamped. The scope was then passed back inside the stomach to confirm proper positioning and that there was no bleeding. The scope was then removed. The tube was secured in place with the fasteners around the bumper and the cap was placed on the end. The patient was then awakened from anesthesia and sent to the postanesthesia care unit (PACU) in stable condition.
[2018-08-08] MEDS ORDERED: OXYC-517 PO (11:27)
== END 2018-08-04 12:10 | disposition home or self-care (01) ==
LOC: M SDC 08:27
PROVIDERS: ATTEND Surgery
DX: C32.1 Malignant neoplasm of supraglottis (principal); E11.9 Type 2 diabetes mellitus without complications; I10 Essential (primary) hypertension; E78.00 Pure hypercholesterolemia, unspecified; J44.9 Chronic obstructive pulmonary disease, unspecified; F41.9 Anxiety disorder, unspecified; F32.9 Major depressive disorder, single episode, unspecified; K21.9 Gastro-esophageal reflux disease without esophagitis; Z79.84 Long term (current) use of oral hypoglycemic drugs; Z79.899 Other long term (current) drug therapy; Z88.0 Allergy status to penicillin; Z88.2 Allergy status to sulfonamides; Z88.8 Allergy status to other drugs, medicaments and biological substances; F17.210 Nicotine dependence, cigarettes, uncomplicated
CPT/HCPCS: 43246; J2250; J3010

== ENCOUNTER → 2018-08-08 | Outpatient (RCR) | payer BC ==
--- NOTE | 2018-07-18 16:17 | RADONC ---
RADIATION ONCOLOGY SIMULATION NOTE DATE: 07/18/2018 CHART NUMBER: [id number] SIMULATION NOTE: Ms. Altamirano was taken to the CT scan for CT simulation of her head and neck field. CT was accomplished without difficulty or discomfort. Radiation treatment planning is underway and radiation treatments will begin subsequently. An immobilization device was created without difficulty or discomfort. It will be used throughout the course of treatment. I was physically present throughout the course of CT simulation.
[~2018-08-08] MED LIST changes: -LR 1,000 ML IV SCH; +MAGICMW SSP; +PROC10TA4 PO
--- NOTE | 2018-08-09 08:13 | RADONC ---
RADIATION ONCOLOGY PROGRESS NOTE DATE: 08/07/2018 CHART NUMBER: [id number] Ms. Altamirano underwent her first fraction of radiation today to her head and neck region. It was tolerated without difficulty or discomfort. The patient's review of systems remains unchanged. She is having no problems clearly with her radiation therapy since it just began today. PHYSICAL EXAMINATION: The patient remains unchanged as well. Clearly, there are no skin changes secondary to radiation again since this was her first fraction. The remainder of her physical exam also remains unchanged. The patient's first fraction of radiation was tolerated well and radiation will continue as scheduled.
--- NOTE | 2018-08-09 20:10 | MEDONC ---
HEMATOLOGY/ONCOLOGY PROGRESS NOTE REASON FOR VISIT: Followup of head and neck carcinoma. 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 The patient in the interval since her last visit had a biopsy of the lung mass. She had a staging PET/CT scan that had been done on 07/11/2018 that had shown a 1.5 cm spiculated nodule in the superior segment of the right lower lobe with hypermetabolic uptake with an SUV of 2.88. There was some adjacent ill-defined parenchymal opacification of the right lower lobe as well that had been improved without any therapy from a prior CT. The patient's supraglottic mass measured with an SUV of 13.23. Her fine-needle aspiration again being negative. The patient is ready to move forward for other treatment. She has had a PEG tube placed in the interval since the last visit which has been exquisitely painful. The patient could just about sit on the examination table. She is slightly hyperventilating and states that the pain has been excruciating and goes from the PEG tube site all the way down into the suprapubic area. She has not had any bleeding nor has she had any exudates or any discharge from that area as well. PAST MEDICAL HISTORY She is a 4, para 4. Normal sinus vaginal deliveries. Back surgery in 1994, arthroscopy of her knees 2016, COPD, history of pneumonia. FAMILY HISTORY, SOCIAL HISTORY AND MEDICAL HISTORY Have really remained unchanged since her office visit of 07/10/2018. MEDICATIONS - esomeprazole magnesium 40 mg p.o. daily - simvastatin 80 mg p.o. daily - hydroxyzine 10 mg p.o. b.i.d. - Combivent inhaler 1 puff q.i.d. - Irbesartan 75 mg p.o. daily - metformin 1000 mg p.o. b.i.d. - mirtazapine 50 mg p.o. at bedtime - oxycodone 5 mg p.o. q.i.d. - trazodone hydrochlorothiazide 50 mg p.o. q. h.s. REVIEW OF SYSTEMS As above noted for pain in the mid abdominal area where she has recently had surgery. It gets worse each time she breathes in and out. She has had an inability to sleep, positional changes make it worse. She is unable to lie flat as this exacerbates the pain and shoots pain down into her pubic area. She has had no bleeding from it. She has not yet used it or flushed it as of yet. PHYSICAL EXAMINATION The patient has a temperature of 97.1, pulse of 118, respiratory rate at 22, blood pressure 135/85, pulse oximetry is 96. HEENT: Normocephalic, atraumatic. PERRL. EOMI. Sclerae is otherwise white, nonicteric. Oropharynx is otherwise clear. NECK: Supple with no adenopathy. CHEST: Clear to auscultation and percussion. CARDIOVASCULAR: S1, S2 are appreciated with no murmurs. ABDOMEN: Otherwise soft, however, she is exquisitely tender. There is no bleeding, however, the GT tube is causing the skin to be pinched. Just slight movement causes the patient a great deal of pain. There is surrounding edema around the GT tube. The tube was loosened by about a half a centimeter which gave the patient a great deal of relief. She had a small amount of gastric contents. This was cleaned up. The patient showed no sign of any bleeding and the patient had improved relief with this. LABORATORY: Show a WBC count of 15.2, hemoglobin of 12.6 over 39.6, MCV of 84, platelet count of 360,000, neutrophils are 80%. Chemistry showed a sodium of 138, potassium 4.6 and a creatinine of 1.55, AST of -4, ALT of -4, alkaline phosphatase of 121. ASSESSMENT: At this time, is recent postoperative pain exacerbated by some iesha-PEG tube edema causing the patient to have a tremendous pinching effect, relieved with minimal movement of the PEG tube by about 1/2 cm x 3/3 centimeter. PLAN: I have advised the patient that she should let us know if she is having any gastric contents that are oozing out of the tube, that she should make a Y incision and put a gauze underneath the skin also to protect herself with some Vaseline jelly to make sure she does not have any excoriations or irritations. She is to see the physician who placed the PEG tube tomorrow or Joseph and I have advised her to please mention this to them as well. She will be starting on the cetuximab therapy this week. She will start off with 450 mg per metered square week one and then 250 mg weeks two through six. Electronically Signed by Wandy Wright MD 08/10/2018 08:27 A DD: Wandy Wright MD 08/08/2018 05:40 P DT: papito 08/09/2018 07:42 P CC: Chauncey Tipton MD
== END ==
LOC: M ONCR 07-18 12:39
PROVIDERS: ATTEND Radiology Radiation Oncology
DX: C32.1 Malignant neoplasm of supraglottis (principal)

== ENCOUNTER → 2018-08-23 | Outpatient (CLI) | payer BC ==
[~2018-08-23] MED LIST changes: +BUPIVACAINE HCL 0.5% 10 ML VIAL As Ordered ONE; +CLINDAMYCIN 600 MG/50 ML PREMIX BAG As Ordered ONE; +DIFL150T PO; +LIDOCAINE 2% MDV 20 ML VIAL As Ordered ONE; -TRAZ-160 PO; +TRAZ-252 PO
--- NOTE | 2018-08-23 12:36 | REP ---
PA and lateral chest: Comparison is 08/01/2018. There is no pneumothorax. The right costophrenic angle is effaced suggestive of a small right pleural effusion as an interval change. The left costophrenic angle is unremarkable. There is atelectasis/scarring inferiorly in the right lung, decreased from prior study. Left lung is clear. Cardiac size is normal. The pino, mediastinum, and skeletal structures are unremarkable. Impression: No pneumothorax. Small right pleural effusion. Atelectasis/scarring inferiorly in the right lung. Electronically Signed by Chauncey Gabriel MD 08/23/2018 12:27 P
--- NOTE | 2018-09-15 10:16 | REPIR ---
DATE OF PROCEDURE: 08/23/2018 PREOPERATIVE DIAGNOSIS: Laryngeal cancer with lung lesions. POSTOPERATIVE DIAGNOSIS: Laryngeal cancer with lung lesions. PROCEDURE: Ultrasound fluoroscopic guided right internal jugular vein 25 cm tunneled central venous catheter with subcutaneous port placement using a Bard PowerPort. ATTENDING SURGEON: Dr. Shanthi Merino OUTBOARD MOTOR TESTER: Juanita Monroy and Ambreen Rodriguez INDICATION: The patient is a 63-year-old female with laryngeal cancer who requires access for chemotherapy. The patient will undergo placement of a Port-A-Cath. ANESTHESIA: Local with 20 mL. FLUORO TIME: 0.1 minutes. CONTRAST: None. COMPLICATIONS: None. DRAINS: None. SPECIMENS: None. IMPLANTS: None. ANTIBIOTICS: 600 mg of clindamycin. DESCRIPTION OF PROCEDURE: The patient was taken to the angiography suite, placed on the angiography room table and then prepped and draped in a standard surgical fashion. Ultrasound was used to guide cannulation of the right internal jugular vein. The catheter was tunneled and positioned with the tip in the superior vena cava/right atrial junction under fluoroscopic guidance. The port was attached to the catheter which was then placed in a pocket created in the right chest. The port was aspirated and noted to aspirate easily and then flushed with heparinized saline. The incisions were closed using #3-0 Monocryl in inverted interrupted fashion. Steri-Strips and dressings were applied. The patient tolerated the procedure well. All instrument, sponge and needle counts were correct at the end the case. There were no complications. Dr. Merino was present for and directed the entire case. The patient was transferred to the holding area and subsequently discharged in stable condition.
== END | disposition home or self-care (01) ==
LOC: M IRPRO 09:58
PROVIDERS: ATTEND Internal Medicine Hematology & Oncology
DX: C32.9 Malignant neoplasm of larynx, unspecified (principal); C78.00 Secondary malignant neoplasm of unspecified lung
CPT/HCPCS: 36561; 71046; 77001; C1788; C1894

== ENCOUNTER 2018-08-25 15:39 | Emergency (ER) | payer BC ==
[~2018-08-25] VITALS: Ht 167.6 cm; Wt 68.2 kg
[~2018-08-25 15:39] MED LIST changes: -BUPIVACAINE HCL 0.5% 10 ML VIAL As Ordered ONE; -CLINDAMYCIN 600 MG/50 ML PREMIX BAG As Ordered ONE; -DIFL150T PO; -LIDOCAINE 2% MDV 20 ML VIAL As Ordered ONE; +TRAZ-160 PO; -TRAZ-252 PO
[2018-08-25 15:40] VITALS: BP 131/68
[2018-08-25] MEDS ORDERED: GASTROGRAFIN SOLUTION 30ML (Q9963) As Ordered ONE (16:51)
[2018-08-25 17:18] LABS: HEMATOCRIT 34.6 % (36.0-47.0); HEMOGLOBIN 10.7 g/dl (12.0-15.5); MEAN CORPUSCULAR HEMOGLOBIN 25.8 pg (27.0-33.0); MEAN CORPUSCULAR HGB CONC 30.9 g/dl (32.0-36.5); MEAN CORPUSCULAR VOLUME 83.6 fl (80.0-96.0); PLATELET COUNT, AUTOMATED 243 10^3/uL (150-450); RED BLOOD COUNT 4.14 10^6/uL (4.00-5.40); WHITE BLOOD COUNT 5.2 10^3/uL (4.0-10.0)
--- NOTE | 2018-08-26 07:56 | REP ---
HISTORY: PEG tube placement. No significant priors for comparison. COMPARISON: A pre-PEG KUB of 04/17/2010 was reviewed. The two view KUB shows opacification of a tube with a balloon on the end and opacifying sponges around the tube. A small amount of contrast is seen within the left upper quadrant likely stomach, but in a minimal fashion. IMPRESSION: As described above. Electronically Signed by Urbano Post DO 08/26/2018 08:30 A
--- NOTE | 2018-08-27 12:19 | CR ---
DATE OF CONSULTATION: 08/25/2018 CHIEF COMPLAINT: Malfunctioning percutaneous endoscopic gastrostomy (PEG) tube. HISTORY OF PRESENT ILLNESS: The patient is a 63-year-old female patient of mine who had PEG placed a couple weeks ago in the operating room. Postoperatively, she had some dislodgement of the tube because the oncology office was messing with the tension on the bumper that resulted in some leakage of acid around the tube with some localized cellulitis and inflammation of the skin. She was treated with antibiotics through my office and that all cleared up within a few days. She has been trying to flush the drain daily, however had not had to actually use it for tube feeds up to this point. Last normal flushing was yesterday. She came into the emergency room (ER) today because when they went to flush it this afternoon all the saline that they put in came out right around the sides of the tube itself. On evaluation, the tube is sitting in the subcutaneous tissues just below the skin surface. It does not appear to be the inside the stomach. The ER did obtain a feeding tube study, which did show that the contrast was leaking around the tube with just a very small scant amount actually entering into the stomach itself. Recommendation was to remove this since it is completely dislodged and attempt replacement with a 20-Hungarian HARRISON tube at the bedside in the ER. I grabbed a 20-Hungarian tube, removed the old one, which confirmed the bumper of the old one was sitting right in the subcutaneous tissues. After the old one was removed, I lubricated a 20-Hungarian tube and tried to place it in and I was unsuccessful. The hole going through the stomach wall in the fascial planes of the abdomen must be already starting to close. I then was able to take a 10-Hungarian Parikh catheter and after multiple attempts was able to place that all the way inside of the stomach successfully and inflated the balloon and left that in place for now. Plan is to discharge her home with that, give it about a week for the subcutaneous tissues to fill in around it. I will then see her in the office on . I will attempt to dilate it slowly and place a larger tube at that time. All of her questions were answered and she will be discharged home to followup me in the office.
[2018-08-31] MEDS ORDERED: OXYC-517 PO (11:46)
== END 2018-08-25 19:48 | disposition home or self-care (01) ==
LOC: M ED 15:39
DX: Z43.1 Encounter for attention to gastrostomy (principal); E11.9 Type 2 diabetes mellitus without complications; I10 Essential (primary) hypertension
CPT/HCPCS: 36415; 74018; 85027; 86140; 87070; 87077; 87186; 87205; 99283; Q9963

== ENCOUNTER 2018-09-01 11:31 | Day surgery (SDC) | payer BC ==
[~2018-09-01] VITALS: Ht 167.6 cm; Wt 67.1 kg
[2018-09-01] MEDS ORDERED: PROPOFOL 200 MG/20 ML VIAL As Ordered ONE (15:24)
[2018-09-01] MEDS ORDERED: LIDOCAINE 2% INJ 100 MG/5 ML SDV (FOR ANES.) As Ordered ONE (15:25)
[2018-09-01] MEDS ORDERED: fentaNYL 100 MCG/2 ML INJECTION (J3010) As Ordered ONE (15:26)
[2018-09-01] MEDS ORDERED: LIDOCAINE 1% SDV INJ 30 ML VIAL As Ordered ONE (15:35)
[2018-09-01] MEDS ORDERED: BUPIVACAINE HCL 0.25% 30 ML VIAL As Ordered ONE (15:36)
[2018-09-01] MEDS ORDERED: PERCOCET 5MG/325MG TAB As Ordered ONE (16:58)
[2018-09-01 17:15] VITALS: BP 147/84
[2018-09-01] MEDS ORDERED: fentaNYL 100 MCG/2 ML INJECTION (J3010) IV PRN (17:15)
[2018-09-01] MEDS ORDERED: ONDANSETRON 4MG/2ML VIAL (J2405) IV PRN (17:15)
[2018-09-01] MEDS ORDERED: LR 1,000 ML IV SCH (17:15)
[2018-09-01] MEDS ORDERED: PERCOCET 5MG/325MG TAB PO PRN (17:15)
--- NOTE | 2018-09-01 21:12 | RO ---
DATE OF PROCEDURE: 09/01/2018 PREOPERATIVE DIAGNOSIS: Epiglottic cancer. POSTOPERATIVE DIAGNOSIS: Epiglottic cancer. PROCEDURE: Percutaneous endoscopic gastrostomy (PEG) tube placement. SURGEON: Dr. Chauncey Richmond RETURNING OFFICER: ANESTHESIA: General. ESTIMATED BLOOD LOSS: 5 mL. COMPLICATIONS: None. INDICATIONS FOR PROCEDURE: The patient is a 63-year-old female who had a PEG tube placed about a month ago. It was dislodged about a week ago, tried to replace it in the emergency room (ER), was unsuccessful due to the small tract. I was able to place a small Parikh which also fell out, so she is here today to have a new tube placed. Risks and benefits of the procedure not limited to but including bleeding, infection, perforation, damage to surrounding structures, and need for further surgery was discussed in detail with the patient, informed consent was obtained and procedure was planned. DESCRIPTION OF PROCEDURE: The patient was brought back to operating room seven after sufficient sedation, the abdomen sterilely prepped and draped with chlorhexidine. Next, a time-out was done to confirm proper patient, proper procedure. Following that, endoscope was passed through the esophagus into the stomach. The previous site from the PEG tube was identified. It was all healed. There was no ulcerations or injury there. I was able to use the same opening in the skin, injected it with 2 mL of lidocaine and then reopened the incision with an 11 blade scalpel to about 8 mm. Next, I was able to pass the introducer needle into the stomach next to the previous scar from a previous tube. Guidewire was then placed, grabbed with a snare and brought out through the mouth. New tube was passed over top of the guidewire and brought out through the abdominal wall. A bumper was placed at about the 3 cm andria. Tube was capped. Placed the endoscope back inside to confirm proper placement; everything looked good from the inside. There were no signs of any bleeding, the bumper was up against the skin. The patient tolerated the procedure well, was awakened from anesthesia and sent to the post-anesthesia care unit (PACU) in stable condition.
[2018-09-08] MEDS ORDERED: DIFL150T PO (13:53)
== END 2018-09-01 17:29 | disposition home or self-care (01) ==
LOC: M SDC 11:31
PROVIDERS: ATTEND Surgery
DX: C32.1 Malignant neoplasm of supraglottis (principal); I10 Essential (primary) hypertension; E11.9 Type 2 diabetes mellitus without complications; E78.5 Hyperlipidemia, unspecified; K21.9 Gastro-esophageal reflux disease without esophagitis; Z88.0 Allergy status to penicillin; Z88.2 Allergy status to sulfonamides; Z88.8 Allergy status to other drugs, medicaments and biological substances; Z87.891 Personal history of nicotine dependence; Z79.84 Long term (current) use of oral hypoglycemic drugs; J44.9 Chronic obstructive pulmonary disease, unspecified; F41.9 Anxiety disorder, unspecified; F32.9 Major depressive disorder, single episode, unspecified
CPT/HCPCS: 43246; J3010

== ENCOUNTER → 2018-09-08 | Outpatient (RCR) | payer BC ==
--- NOTE | 2018-08-14 11:54 | RADONC ---
RADIATION ONCOLOGY PROGRESS NOTE DATE: 08/14/2018 CHART NUMBER: [id number] PROGRESS NOTE: Ms. Altamirano is presently at a dose of 1200 cGy to her supraglottic larynx and is tolerating her treatments fairly well with some discomfort upon swallowing. She has been having trouble with her feeding tube, which has been leaking and had become infected. Radiation damico however, she has no new complaints other than some slight discomfort upon swallowing. REVIEW OF SYSTEMS: The patient's review of systems is positive for her swallowing discomfort but is otherwise noncontributory. Denies nausea, vomiting, fevers, chills, night sweats, diplopia, headaches, anxiety or depression, anorexia, weight loss, visual disturbances, chest pain, urinary or bowel difficulties, bone pain, or neurological problems. PHYSICAL EXAMINATION: The patient's skin is in good condition with no evidence of radiation change present. There is no moist or dry desquamation. The remainder of her physical exam remains unchanged. Ms. Altamirano is tolerating her treatments quite well and radiation will continue as scheduled.
--- NOTE | 2018-08-21 14:11 | RADONC ---
RADIATION ONCOLOGY PROGRESS NOTE DATE: 08/21/2018 CHART NUMBER: [id number] Mrs. Altamirano with a diagnosis of supraglottic larynx cancer is currently receiving local regional radiotherapy with concomitant Erbitux. She seems to be tolerating therapy reasonably well with anticipated side effects. Her current dose is 2000cGy/7000cGy. REVIEW OF SYSTEMS: She is complaining of fairly severe odynophagia. She does not have generalized pain yet has oxycodone to take for pain. She feels that the oxycodone does not substantially help the mouth pain and she was given a prescription for a triple mix solution by Dr. Wright. She has not yet tried this triple mix solution however. Her energy level is diminished and she does have a feeding tube for nutritional support. Otherwise her major complaint is oral pain. EXAMINATION FINDINGS: The skin within the irradiated volume shows a minimal erythematous blush with no focal desquamation. Lymphatics: No palpable peripheral lymphadenopathy is appreciated. The remainder of the physical examination reveals patchy mucositis intraorally and some minor crusted blood around the lip line. IMPRESSION: The patient has anticipated radiation/Erbitux side effects. PLAN: We will give her off approximately 2-3 days from her radiotherapy and have her come back prior to receiving her anticipated chemotherapy this week to determine whether or not joint therapy should continue. I have also instructed her to use the triple mix solution for which she has a prescription from Dr. Wright. [facility]
--- NOTE | 2018-08-28 12:16 | RADONC ---
RADIATION ONCOLOGY PROGRESS NOTE DATE: 08/28/2018 CHART #: [id number] Ms. Altamirano is presently at a dose of 2600 cGy to her larynx and is tolerating treatments quite well at this point with no significant difficulties at this time related to her radiation therapy. The patient reports that she has had problems and had her feeding tube fall out today. She has been dealing with Dr. Richmond who is addressing this issue. In the meantime, radiation is continuing. REVIEW OF SYSTEMS: The patient's review of systems is basically noncontributory. She is eating solid food. Denies nausea, vomiting, fevers, chills, night sweats, diplopia, headaches, anxiety or depression, anorexia, weight loss, visual disturbances, chest pain, urinary or bowel difficulties, bone pain, or neurological problems. PHYSICAL EXAMINATION: The patient's skin is in good condition with no evidence of moist or dry desquamation. The remainder of her physical exam remains unchanged. Ms. Altamirano is tolerating treatments quite well and radiation will continue as scheduled.
--- NOTE | 2018-09-05 15:19 | RADONC ---
RADIATION ONCOLOGY PROGRESS NOTE DATE: 09/05/2018 CHART NUMBER: [id number] PROGRESS NOTE: Ms. Altamirano is presently at a dose of 3600 cGy to her larynx and is continuing to have difficulty with swallowing. The PEG tube has been replaced last Tuesday, and she is now beginning to increase her intake. At this time however, she has lost weight. REVIEW OF SYSTEMS: The patient's review of systems is positive for difficulty with swallowing and some nauseousness but is otherwise generally noncontributory. Denies vomiting, fevers, chills, night sweats, diplopia, headaches, anxiety or depression, anorexia, weight loss, visual disturbances, chest pain, urinary or bowel difficulties, bone pain, or neurological problems. PHYSICAL EXAMINATION: The patient's weight today is 142.2 pounds, down 6 pounds since last week and 8 pounds since the week before. Her skin is in good condition with no evidence of moist or dry desquamation. The remainder of her physical exam remains largely unchanged. Radiation will continue at this time. We have given her dietary instructions at length. We have encouraged her to increase her intake by feeding tube as well as by mouth. We will continue to follow her closely and will weigh her routinely throughout her treatments. Radiation will continue as scheduled.
[~2018-09-08] MED LIST changes: +DIFL150T PO; -TRAZ-160 PO; +TRAZ-252 PO
== END ==
LOC: M ONCR 08-09 10:47
PROVIDERS: ATTEND Radiology Radiation Oncology
DX: C32.1 Malignant neoplasm of supraglottis (principal)

== ENCOUNTER 2018-09-28 10:38 | Outpatient (RCR) | payer BC ==
--- NOTE | 2018-09-11 12:48 | RADONC ---
RADIATION ONCOLOGY PROGRESS NOTE DATE: 09/11/2018 CHART NUMBER: [id number] Mrs. Altamirano, with a diagnosis of laryngeal cancer, is currently receiving local regional radiotherapy and she is at a dose of 4400 cGy of an anticipated 7000 cGy. She appears to be tolerating radiotherapy reasonably well and although she has some difficulty swallowing as would be anticipated, she denies any hemoptysis, nausea or vomiting. REVIEW OF SYSTEMS: Remainder of the review of systems is fairly noncontributory. She has gained 3 pounds this week and denies any bleeding, but does experience quite severe pain upon swallowing. Her energy level is diminished but she is still able to maintain many day-to-day activities. She has a PEG tube placed but is not currently using at. EXAMINATION FINDINGS: Skin within the irradiated volume shows a 1-2+ hyper erythematous blush with some minimal hyperpigmentation but no evidence of desquamation. Examination of the oral cavity reveals patchy mucositis. No adenopathy is appreciated. The remainder of the examination is unchanged. IMPRESSION: Tolerating therapy reasonably well. PLAN: Treatments to continue.
--- NOTE | 2018-09-18 14:36 | RADONC ---
RADIATION ONCOLOGY PROGRESS NOTE DATE: 09/18/2018 CHART NUMBER: [id number] Ms. Altamirano is presently dose of 5400 cGy to her supraglottic larynx and is tolerating treatments quite well at this point with no significant difficulties related to her radiation therapy other than some discomfort upon swallowing. She does have a feeding tube. She reports however, she is not using it and she is eating by mouth. REVIEW OF SYSTEMS: The patient's review of systems is positive for the sore throat but is otherwise noncontributory. Denies nausea, vomiting, fevers, chills, night sweats, diplopia, headaches, anxiety or depression, anorexia, weight loss, visual disturbances, chest pain, urinary or bowel difficulties, bone pain, or neurological problems. PHYSICAL EXAMINATION: The patient's skin is in good condition with no evidence of moist or dry desquamation. Her weight is actually up a pound and overall is pretty stable throughout the course of treatment. The remainder of her physical exam remains unchanged. Ms. Altamirano is tolerating treatments quite well and radiation will continue as scheduled.
--- NOTE | 2018-09-26 07:25 | RADONC ---
RADIATION ONCOLOGY PROGRESS NOTE DATE: 09/25/2018 CHART #: [id number] Ms. Altamirano is presently at a dose of 6400 cGy to her larynx and overall is tolerating treatments fairly well. She continues to have a bit of discomfort upon swallowing. REVIEW OF SYSTEMS: The patient's review of systems is positive for swallowing discomfort but is otherwise noncontributory. Denies nausea, vomiting, fevers, chills, night sweats, diplopia, headaches, anxiety or depression, anorexia, weight loss, visual disturbances, chest pain, urinary or bowel difficulties, bone pain, or neurological problems. PHYSICAL EXAMINATION: The patient's skin is in good condition with no evidence of moist or dry desquamation. The patient weighs 138.4 pounds now, down slightly over the past couple weeks. The remainder of her physical exam is largely unchanged. Ms. Altamirano is scheduled for completion in 3 days and radiation will continue as scheduled. She has been given dietary instructions and we will continue to monitor her weight as treatments progress.
--- NOTE | 2018-10-01 12:59 | RADONC ---
RADIATION ONCOLOGY TREATMENT SUMMARY DATE: 09/28/2018 CHART NUMBER: [id number] DIAGNOSIS: Epiglottis/supraglottic larynx cancer. STAGE: II, T2N0M0. ECOG PERFORMANCE STATUS: 0 TREATMENT SUMMARY: Ms. Altamirano is a very pleasant 63-year-old white female with the diagnosis of a stage II, T2N0M0, right supraglottic larynx cancer who presented to us for consideration of definitive external beam radiation therapy as a therapeutic option combined with systemic therapy. We treated the patient to her primary site for total dose of 7000 cGy delivered in 35 fractions over 52 elapsed days from 08/07/2018 through 09/28/2018. The patient's primary site was treated on the linear accelerator utilizing a 6 MV photon beam via IMRT/IGRT. The noninvolved lymph nodes were treated to a dose of 5000 cGy delivered in 25 fractions of 200 cGy each over 38 elapsed days from 08/07/2018 through 09/14/2018. Ms. Altamirano tolerated her treatments quite well and was able complete therapy as prescribed. I have scheduled the patient to see me again in 1 month for further follow-up. She will also continue to be followed by her other physicians as well. Thank you for allowing us to participate in the care of this very pleasant woman. If I could be of any further assistance or provide you with any information, please free to contact me at anytime. cc: MD Elsie Lau, ANP-BC
[2018-10-06] MEDS ORDERED: OXYC-517 PO ×2 (09:18→11:12)
== END 2018-10-08 ==
LOC: M ONCR 10:38
PROVIDERS: ATTEND Radiology Radiation Oncology
DX: C32.1 Malignant neoplasm of supraglottis (principal)

== ENCOUNTER → 2018-10-05 | Outpatient (CLI) | payer BC ==
--- NOTE | 2018-10-06 00:16 | ECGEPIP ---
[facility] Test Date: 2018-10-05 Pat Name: SONA MARTINEZ Department: Room: - Gender: Female Owner/Photographer: : [id number] Requested By: FRANC Nguyen Order Number: [id number] Reading MD: James Campos Measurements Intervals [place] Rate: 107 P: 57 MO: 128 QRS: 48 QRSD: 71 T: 43 QT: 315 QTc: 421 Interpretive Statements SINUS TACHYCARDIA LOW-VOLTAGE QRS COMPLEXES IN THE LIMB LEADS MOST RECENT TRACING ON 07/29/2018 AT 7:43 A.M., HEART RATE THEN WAS 151 BEATS PER MINUTE ABNORMAL RHYTHM ECG Electronically Signed on 10-06-2018 0:16:26 EDT by James Campos
== END ==
LOC: M EKG 12:08
PROVIDERS: ATTEND Internal Medicine
DX: C32.1 Malignant neoplasm of supraglottis (principal); Z79.899 Other long term (current) drug therapy; E11.9 Type 2 diabetes mellitus without complications; J44.9 Chronic obstructive pulmonary disease, unspecified

== ENCOUNTER → 2018-12-26 | Outpatient (CLI) | payer BC ==
[~2018-12-26] MED LIST changes: +AMBI10TA PO; -AZIT500T2 PO; +AZIT500T5 PO; +CHAN1PAK11 PO; +METH10TA PO; +NYST50SS SS; +NYST50SS SSP; +QC A650T3 PO
--- NOTE | 2018-12-26 16:39 | REP ---
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 Whole-body scanning is performed from skull base to the upper thighs. Neck and supraclavicular areas: On the prior study there was a hypermetabolic focus in the glottis with a standard uptake value of 13.2 . On the study today this hypermetabolic focus is no longer present. There is borderline hypermetabolic uptake in the posterior laryngeal soft tissues with a maximal standard uptake value today of 2.9. This could represent postsurgical or postradiation uptake. No mass is identified on the CT accompanying the scan. There are no other hypermetabolic foci in the neck or supraclavicular areas. Chest: On the prior study there was a 1.5 cm spiculated nodule in the superior segment of the right lower lobe demonstrated a maximal standard uptake value of 2.88. This nodule is again visible today and measures 1.2 cm with a standard uptake value of 1.65. The ill-defined parenchymal opacification in the right lower lobe is unchanged from the prior study. Additionally, on the study today there is a new 1.7 cm lung nodule posterolaterally in the right upper lobe with a maximal standard uptake value of 2.66. There are no other lung nodules or masses. There are no mediastinal, hilar or axillary foci. There are no other hypermetabolic foci in the chest. Abdomen, pelvis and upper thighs: There are no hypermetabolic foci. There is nonspecific bowel uptake. The right adrenal nodule is again identified, unchanged in size and again demonstrating no radio labeling, as previously. Impression: The hypermetabolic focus in the glottis is no longer present. There is non hypermetabolic uptake in a colonic posterior soft tissues, likely postsurgical or postradiation uptake. The known right lower lobe lung nodule has decreased in size and demonstrates non hypermetabolic uptake. There is an ill-defined parenchymal opacification of the right lower lobe, unchanged. There is no uptake within this opacification, as previously. However, there is a new 1.7 cm right upper lobe lung nodule demonstrating borderline hypermetabolic uptake with a maximal standard uptake value of 2.66. There are no other hypermetabolic foci in the chest. There are no hypermetabolic foci in the abdomen, pelvis or upper thighs. The known right adrenal nodule again demonstrates no radiotracer uptake. The study is performed with 1.46 mCi of F 18 FDG. Electronically Signed by Chauncey Gabriel MD 12/26/2018 04:31 P
== END ==
LOC: M PLARAD 09:27
PROVIDERS: ATTEND Internal Medicine Hematology & Oncology
DX: C32.2 Malignant neoplasm of subglottis (principal); C78.00 Secondary malignant neoplasm of unspecified lung; C76.0 Malignant neoplasm of head, face and neck; R91.8 Other nonspecific abnormal finding of lung field
CPT/HCPCS: 78815; A9552

== ENCOUNTER → 2019-01-11 | Outpatient (REF) | payer BC ==
[~2019-01-11] MED LIST changes: -AMBI10TA PO; +AZIT500T2 PO; -AZIT500T5 PO; -METH10TA PO; -NYST50SS SS; -QC A650T3 PO
[2019-01-11 12:19] LABS: CHOLESTEROL RISK RATIO 2.591 (<5); FREE T3 2.6 PG/ML (2.2-4.0); FREE T4 1.54 NG/DL (0.76-1.46); THYROID STIMULATING HORMONE 0.099 uIU/ML (0.358-3.740); THYROXINE (T4) 10.6 UG/DL (4.5-12.0)
[2019-01-11 12:56] LABS: HEMOGLOBIN A1c 6.6 %
[2019-01-12 10:07] LABS: THYROID PEROXIDASE ANTIBODY 39.3 U/ML (<60.0)
== END ==
LOC: M LAB REF 11:01
PROVIDERS: ATTEND Nurse Practitioner Adult Health
DX: E11.65 Type 2 diabetes mellitus with hyperglycemia (principal); F33.1 Major depressive disorder, recurrent, moderate; Z79.899 Other long term (current) drug therapy

== ENCOUNTER → 2019-02-02 | Outpatient (CLI) | payer BC ==
[~2019-02-02] MED LIST changes: -AZIT500T2 PO; +AZIT500T5 PO; +NYST50SS SS; +QC A650T3 PO
--- NOTE | 2019-02-02 15:07 | REP ---
HISTORY: Followup. COMPARISON: Prior examination 05/12/2018 showed a persistent right lower lobe opacity with mediastinal adenopathy. Older exams were also reviewed. The lack of intravenous contrast decreases the sensitivity of the exam. There is mediastinal and suspected hilar adenopathy. The pulmonary pino are difficult to evaluate without intravenous contrast. There are no pleural or pericardial effusions. The imaged upper abdomen is unchanged. Once again, there is a 3.6 cm sized low density mass in the right adrenal gland which has been essentially stable for many years. There is evidence of cholelithiasis. There is a partially imaged likely hyperdense left renal cyst. The osseous structures are stable and intact. Evaluation of the lung schultz shows significant improvement in the abnormal right lower lobe nodule and area of consolidation. In the inferior lingula, there is a new asymmetric density which measures 2.2 cm and having scant air bronchograms within it. In the anterior basal segment of the left lower lobe, there are asymmetric densities which have developed since the last examination. They are patchy in appearance. In the posterior segment of the right upper lobe there is a new spiculated nodule which measures 1.3 cm. Other ground glass opacities are seen in the right upper lobe. A few bibasilar asymmetric densities are again noted, status quo. There is evidence of cylindrical bronchiectasis. The lung schultz appear somewhat hyperexpanded. IMPRESSION: 1. Although there has been some improvement in the appearance of the right lower lobe, there are new abnormalities which are worrisome and need to be correlated clinically with appropriate followup. I cannot rule out malignancy at this time. There is no revised Jamal [employer] criteria and the recommendation for followup of such findings. I would say the most worrisome feature is the spiculated nodule in the posterior segment of the right upper lobe. The patient did have PET CT on 12/26/2018 which showed a right upper lobe hypermetabolic lesion and when the CT component of that exam is compared to the CT scan today, it is likely that the finding on the PET scan represents a spiculated lesion in the posterior segment of the right upper lobe since they have similar appearances. 2. Other significant findings as described above. Electronically Signed by Urbano Post DO 02/02/2019 04:22 P
== END ==
LOC: M RAD 12:40
PROVIDERS: ATTEND Internal Medicine Pulmonary Disease
DX: R91.8 Other nonspecific abnormal finding of lung field (principal)

== ENCOUNTER 2019-02-06 11:31 | Outpatient (RCR) | payer BC ==
[~2019-02-06 11:31] MED LIST changes: -NYST50SS SS; -QC A650T3 PO
[2019-02-07] MEDS ORDERED: QC A650T3 PO (15:47)
[2019-02-07] MEDS ORDERED: NYST50SS SS (15:47)
== END 2019-02-08 ==
LOC: M PT 11:31
PROVIDERS: ATTEND Nurse Practitioner Adult Health
DX: I89.0 Lymphedema, not elsewhere classified (principal)

== ENCOUNTER 2019-02-14 05:57 | Day surgery (SDC) | payer BC ==
[~2019-02-14] VITALS: Ht 167.6 cm; Wt 57.5 kg
[~2019-02-14 05:57] MED LIST changes: +NYST50SS SS; +QC A650T3 PO
[2019-02-14] MEDS ORDERED: LR 1,000 ML IV ONE (06:00)
[2019-02-14] MEDS ORDERED: ONDANSETRON 4MG/2ML VIAL (J2405) As Ordered ONE (07:12)
[2019-02-14] MEDS ORDERED: THROMBIN SOLN 5,000 UNITS VIAL As Ordered ONE (07:12)
[2019-02-14] MEDS ORDERED: ROCURONIUM BROMIDE 50 MG/5 ML VIAL As Ordered ONE (07:12)
[2019-02-14] MEDS ORDERED: LIDOCAINE 2% INJ 100 MG/5 ML SDV (FOR ANES.) As Ordered ONE (07:12)
[2019-02-14] MEDS ORDERED: PROPOFOL 200 MG/20 ML VIAL As Ordered ONE (07:12)
[2019-02-14] MEDS ORDERED: dexameTHASONE 4 MG/ML 1ML VIAL (J1100) As Ordered ONE (07:12)
[2019-02-14] MEDS ORDERED: LIDOCAINE 1% SDV INJ 30 ML VIAL As Ordered ONE (07:13)
[2019-02-14] MEDS ORDERED: EPINEPHrine INJ 1 MG/ML 1ML AMP As Ordered ONE (07:13)
[2019-02-14] MEDS ORDERED: CETACAINE SPRAY 5GM As Ordered ONE (07:13)
[2019-02-14] MEDS ORDERED: LIDOCAINE VISCOUS 2% SOLN 15ML UDC As Ordered ONE (07:13)
[2019-02-14] MEDS ORDERED: fentaNYL 250 MCG/5 ML INJECTION (J3010) As Ordered ONE (07:15)
[2019-02-14] MEDS ORDERED: MIDAZOLAM INJ 2 MG/2 ML VIAL (J2250) As Ordered ONE (07:16)
[2019-02-14] MEDS ORDERED: AMBI10TA PO (07:18)
[2019-02-14] MEDS ORDERED: SUGAMMADEX SODIUM 500 MG/5 ML VIAL (BRIDION) As Ordered ONE (07:53)
[2019-02-14] MEDS ORDERED: PHENYLephrine HCL 500 MCG/5 ML (100MCG/ML) SYRINGE (J2370) As Ordered ONE (07:59)
[2019-02-14] MEDS ORDERED: ePHEDrine SULFATE 25 MG/5 ML(5MG/ML) SYRINGE As Ordered ONE (07:59)
[2019-02-14] MEDS ORDERED: VASOPRESSIN INJ 20 UNITS/ML VIAL As Ordered ONE (08:03)
[2019-02-14] MEDS ORDERED: ALBUTEROL 6.7GM INHALER **FOR ANES. CART/OMNICELL ONLY As Ordered ONE (08:26)
--- NOTE | 2019-02-14 08:49 | REP ---
PARTIAL CHEST X-RAY: Three views. HISTORY: Abnormal x-ray. Intraprocedural imaging. 3 minutes 44 seconds of fluoroscopy time is reported. FINDINGS: A sequence of three last image hold fluoroscopically obtained spot radiographs of the right chest document bronchoscopic manipulation and fiducial marker placement. Electronically Signed by Bryan Loyola MD 02/14/2019 10:22 A
[2019-02-14] MEDS ORDERED: LR 1,000 ML IV SCH (09:00)
[2019-02-14] MEDS ORDERED: fentaNYL 100 MCG/2 ML INJECTION (J3010) IV PRN (09:00)
[2019-02-14] MEDS ORDERED: oxyCODONE 5MG TAB PO PRN (09:00)
[2019-02-14] MEDS ORDERED: ONDANSETRON 4MG/2ML VIAL (J2405) IV PRN (09:00)
--- NOTE | 2019-02-14 09:02 | RO ---
DATE OF PROCEDURE: 02/14/2019 PREPROCEDURE DIAGNOSIS: Pulmonary nodule abnormal chest CT. POSTOPERATIVE DIAGNOSIS: Same. FINDINGS: Mucus in the airway. PROCEDURE: Bronchoscopy with electromagnetic navigation and fiducial marker placement SURGEON: Dr. Will Galvez. PROJECT DEVELOPMENT ENGINEER: None. ANESTHESIA: General. Please refer to their records for details. SPECIMENS OBTAINED: 1. Bronchial cytology brush and needle brush of the right upper lobe. 2. Transbronchial biopsies right upper lobe. 3. Fine needle aspiration (FNA) Gen cut right upper lobe. ESTIMATED BLOOD LOSS: Less than 5 mL. COMPLICATIONS: No observed complications. DESCRIPTION OF PROCEDURE: After informed consent was reviewed with the patient in the preoperative area, she was brought back to operating room (OR) #8 which is a pre-mapped room. A time-out was performed with two patient identifiers identifying correct site, correct procedure. Anesthesia intubated the patient without difficulty. However, there was some noted edema of the upper airway likely from radiation. She does have external hardened edema of the neck. After intubation with an 8.5 endotracheal tube, the case was handed over to me. Time-out again performed with two patient identifiers identifying correct site, correct procedure and correlating the name of the patient with the navigation pre-mapped CT. Cetacaine spray was then used to anesthetize the airway. The 1T 190 bronchoscope was then inserted into the endotracheal tube. Trachea was midline. Kristan was sharp. There was minimal amounts of thick mucus mostly from the right airway. Right mainstem was then cleared of mucus. RB 1- 10 was examined without endobronchial lesion. There was anatomic variation especially in the right upper lobe. Left upper lobe and left mainstem bronchus was normal. LB 1-10 was normal without endobronchial lesions. Bronchoscope was then retracted into the endotracheal tube and automatic registration was performed. After confirming registration and the target #1 in the right upper lobe posterior segment was easily navigated to. Of note, there were two apical segment three segments just underneath the apical segments; one posterior when anterior and one in the middle of the right anterior and posterior airways. This had a bifurcation that was visible. During the navigation, the probe was placed into the posterior segment and the most posterior aspect of the middle segment that is in between the right anterior and the right posterior segments. The segment that was in the middle segment of the posterior portion was the one that achieved the closest proximity to the lesion. Biopsies were then performed along with cytology brushing. This was performed under fluoroscopy and fluoroscopy image was saved. I then placed the LG guide to ensure adequate placement. The catheter was slightly more medial but did show that was in adequate position for biopsy. Therefore further biopsies were taken of this area along with Gen cut. Due to possible suspicion of malignancy and the small size of the lesion and the fact that the patient has chronic obstructive lung disease, fiducial markers were placed in case there is need for more directed therapy such as SBRT. After fiducial marker placement, the catheter was removed. All areas were suctioned. Postprocedure chest x-ray is pending. So far no observed complications.
--- NOTE | 2019-02-14 09:19 | REP ---
Portable chest x-ray: Single view. History: Postop. Status post bronchoscopy. Comparison chest x-ray August 23, 2018. Comparison chest CT study February 02, 2019. Findings: There is a hazy opacity in the right upper lobe superior to fiducial markers placed bronchoscopically. This may be a small localized area of parenchymal hemorrhage. It is larger than the spiculated nodular target seen on February 02, 2019. There is no evidence of pneumothorax or hydrothorax. An Zydrog-J-Bguw catheter is noted. There is some bibasilar linear fibrosis. Electronically Signed by Bryan Loyola MD 02/14/2019 09:10 A
[2019-02-14 09:59] VITALS: BP 106/66
== END 2019-02-14 10:22 | disposition home or self-care (01) ==
LOC: M SDC 05:57
PROVIDERS: ATTEND Internal Medicine Pulmonary Disease
DX: R91.1 Solitary pulmonary nodule (principal); R91.8 Other nonspecific abnormal finding of lung field; J43.1 Panlobular emphysema; I10 Essential (primary) hypertension; E78.00 Pure hypercholesterolemia, unspecified; E11.9 Type 2 diabetes mellitus without complications; N28.9 Disorder of kidney and ureter, unspecified; J32.9 Chronic sinusitis, unspecified; G47.9 Sleep disorder, unspecified; K21.9 Gastro-esophageal reflux disease without esophagitis; D50.9 Iron deficiency anemia, unspecified; F41.9 Anxiety disorder, unspecified; F32.9 Major depressive disorder, single episode, unspecified; Z92.3 Personal history of irradiation; Z88.0 Allergy status to penicillin; Z88.8 Allergy status to other drugs, medicaments and biological substances; Z88.2 Allergy status to sulfonamides; Z88.1 Allergy status to other antibiotic agents; Z79.84 Long term (current) use of oral hypoglycemic drugs; F17.210 Nicotine dependence, cigarettes, uncomplicated; Z85.21 Personal history of malignant neoplasm of larynx
CPT/HCPCS: 31623; 31626; 31627; 31628; 31629; 71045; 76000; 88104; 88173; 88305; A4648; J1100; J2250; J2370; J2405; J3010

== ENCOUNTER → 2019-02-20 | Outpatient (REF) | payer BC ==
[~2019-02-20] MED LIST changes: +AMBI10TA PO
== END ==
LOC: M LAB REF 13:40
PROVIDERS: ATTEND Internal Medicine Pulmonary Disease
DX: R91.8 Other nonspecific abnormal finding of lung field (principal)

== ENCOUNTER → 2019-02-22 | Outpatient (REF) | payer BC | LOC: M LAB REF 18:05 | PROVIDERS: ATTEND Surgery | DX: D48.5 Neoplasm of uncertain behavior of skin (principal) ==

== ENCOUNTER 2019-03-06 14:00 | Outpatient (RCR) | payer BC | END 2019-03-10 | LOC: M PT 14:00 | PROVIDERS: ATTEND Nurse Practitioner Adult Health | DX: I89.0 Lymphedema, not elsewhere classified (principal) ==

== ENCOUNTER → 2019-04-25 | Outpatient (CLI) | payer BC ==
[~2019-04-25] MED LIST changes: +METH10TA PO
--- NOTE | 2019-04-26 11:24 | RADONC ---
RADIATION ONCOLOGY FOLLOWUP NOTE DATE: 04/25/2019 CHART NUMBER: [id number] DIAGNOSIS: Epiglottis/supraglottic larynx cancer. STAGE: II, T2N0M0. ECOG PERFORMANCE STATUS: 0 FOLLOWUP NOTE: Ms. Altamirano is a very pleasant 63-year-old white female with the diagnosis of a stage II, T2N0M0 right supraglottic larynx cancer who is presenting to us today for routine followup visit 7 months post completion of external beam radiation therapy. The patient presents today reporting that generally she is doing quite well. She is being seen on a monthly basis for fiberoptic laryngoscopic evaluation by the head and neck surgeon Dr. Champion. Claudio and Dr. Sushil Cantu MD both report having seen no evidence of recurrent malignancy. The patient presents today reporting that she is continuing to lose some weight but her taste sensations have returned. She is having no pain or discomfort. She does have xerostomia. REVIEW OF SYSTEMS: The patient's review of systems is positive for xerostomia but is and some weight loss but is otherwise noncontributory. Denies nausea, vomiting, fevers, chills, night sweats, diplopia, headaches, anxiety or depression, anorexia, weight loss, visual disturbances, chest pain, urinary or bowel difficulties, bone pain, or neurological problems. PHYSICAL EXAMINATION: The patient is a well-developed, well-nourished white female in no acute distress. HEENT exam is normocephalic, atraumatic. Extraocular movements are intact. Examination of the patient's oral cavity fails to reveal any lesions or nodularity. There is clear xerostomia present. She is edentulous. There is no palpable preauricular, cervical, supraclavicular, infraclavicular or axillary lymphadenopathy present. Lungs are clear to auscultation and percussion. Heart is regular rate and rhythm. ASSESSMENT: Ms. Altamirano is clinically SHAKA at this time. Since she is being seen and undergoing laryngoscopic evaluation every 4 weeks, I have discharged from my followup except on a p.r.n. basis. cc: MD Elsie Allen, ANP-BC
== END ==
LOC: M ONCR 13:18
PROVIDERS: ATTEND Radiology Radiation Oncology
DX: C32.1 Malignant neoplasm of supraglottis (principal)

== ENCOUNTER → 2019-05-24 | Outpatient (REF) | payer BC ==
[~2019-05-24] MED LIST changes: -IRBE150T12; -IRBE150T12 PO; +IRBE150T7; +IRBE150T7 PO
[2019-05-24 16:39] LABS: FREE T4 1.2 NG/DL (0.76-1.46); THYROID STIMULATING HORMONE 2.65 uIU/ML (0.358-3.740)
== END ==
LOC: M LABDRAW1 12:51
PROVIDERS: ATTEND Internal Medicine Endocrinology, Diabetes & Metabolism
DX: E05.80 Other thyrotoxicosis without thyrotoxic crisis or storm (principal)

== ENCOUNTER → 2019-06-05 | Outpatient (CLI) | payer BC ==
--- NOTE | 2019-06-05 14:39 | REP ---
CT of the chest without IV contrast for other non specific abnormal finding of lung. Comparison is 02/02/2019. There is an irregular density in the left upper lobe on image 22 measuring 3.0 cm, not present on the comparison study. There is a 1 cm irregular density posteriorly in the right upper lobe on image 32, not significantly changed. However, just inferior and anterior to this density. There appear to be too surgical clips in the lung parenchyma, not present previously. There is a 5 ml pleural-based nodule laterally in the left upper lobe on image 37, unchanged. There is a new focal irregular 1.2 cm density anteriorly in the left upper lobe on image 40. There is a new 9 mm density posteriorly in the left upper lobe on image 43. There is a new pleural-based focal density anteriorly in the left upper lobe on image 53. There is a new small focal density posteriorly in the left upper lobe on image 60. There is a new pleural-based 1 cm density in the anterior segment of the left lower lobe on image 64. There is a new focal density in the left lower lobe on image 70. There is a resolving density at the inferior tip of the lingula on image 71. There is a resolving density anterolaterally in the left lower lobe on image 76. There is a new focal density in the medial basilar segment of the left lower lobe on image 82. There is a persisting ground-glass density in the right lower lobe. There are no pleural effusions. There are multiple mediastinal lymph nodes, normal size and some borderline enlarged, similar to the prior study. In the absence of IV contrast the study is insensitive for hilar adenopathy. There is no axillary adenopathy. The unenhanced thoracic aorta is unremarkable. Cardiac size is normal. There is calcified atheroma in the coronary arteries. Cardiac size is normal. No pericardial effusion. In the upper abdomen there is a stable right adrenal low density nodule. Impression: Multiple lung nodules as described. Electronically Signed by Chauncey Gabriel MD 06/05/2019 02:30 P
== END ==
LOC: M RAD 12:15
PROVIDERS: ATTEND Internal Medicine Pulmonary Disease
DX: R91.8 Other nonspecific abnormal finding of lung field (principal)

== ENCOUNTER → 2019-07-17 | Outpatient (CLI) | payer BC, MEDICARE ==
--- NOTE | 2019-07-17 14:58 | REP ---
PET/CT: HISTORY: Restaging supraglottic carcinoma. Status post chemotherapy and radiation therapy. COMPARISONS: December 26, 2018. TECHNIQUE: 58 minutes following the intravenous injection of a 8.20 mCi dose of F-18 FDG, three-dimensional PET scintigraphy is acquired from the skull base to the proximal thighs. Triplanar noncontrast CT scanning is acquired through the same anatomic range for attenuation correction, and image registration with scan parameters optimized to minimize radiation exposure to the patient. PET scintigraphy and CT datasets were fused and displayed on a workstation with multiplanar and projection display capability. PET/CT FINDINGS: There is linear post radiation therapy skeletal muscle uptake along the sternocleidomastoid muscle and adjacent vascular structures on the left. Head and neck soft tissues are unremarkable otherwise. No suspicious abnormal uptake is seen in the head and neck soft tissues. There is no evidence of hilar or mediastinal hypermetabolic adenopathy in the chest. No abnormal pulmonary parenchymal hypermetabolic uptake is seen. The known right upper lobe nodule is not hypermetabolic with maximum standard uptake value 0.93. There is a somewhat linear peripheral fibronodular density in the left lower lobe with maximum standard uptake value 1.01. Other recently identified nodular opacities appear less prominent morphologically and no hypermetabolic uptake is seen. A right-sided Famnff-V-Igwz catheter is noted. In the abdomen and pelvis, there is normal distribution of tracer to the liver, spleen, gastrointestinal and genitourinary tracts. No abnormal hypermetabolic uptake is seen in the abdomen or pelvis. IMPRESSION: No abnormal hypermetabolic uptake is noted. Recently identified multiple nodular opacities are less prominent morphologically and there is no abnormal hypermetabolic uptake in the lung parenchyma on today's PET scintigraphy. Electronically Signed by Bryan Loyola MD 07/17/2019 03:03 P
== END ==
LOC: M PLARAD 07:28
PROVIDERS: ATTEND Internal Medicine Pulmonary Disease
DX: C32.1 Malignant neoplasm of supraglottis (principal)
CPT/HCPCS: 78815; A9552

== ENCOUNTER → 2019-07-26 | Outpatient (CLI) | payer BC, MEDICARE ==
[2019-07-26 14:49] LABS: FREE T4 1.12 NG/DL (0.76-1.46); THYROID STIMULATING HORMONE 1.06 uIU/ML (0.358-3.740)
== END ==
LOC: M LAB 13:27
PROVIDERS: ATTEND Internal Medicine Endocrinology, Diabetes & Metabolism
DX: E05.80 Other thyrotoxicosis without thyrotoxic crisis or storm (principal)

== ENCOUNTER → 2019-10-01 | Outpatient (CLI) | payer MEDICARE ==
[~2019-10-01] MED LIST changes: -CLOT1CRE EXT; +CLOT1CRE51 EXT; +LEVO250T12 PO; +[UNRECOGNIZED DRUG - CODE] PO
[2019-10-01 14:43] LABS: FREE T4 1.26 NG/DL (0.76-1.46); THYROID STIMULATING HORMONE 0.973 uIU/ML (0.358-3.740)
== END ==
LOC: M LAB 13:19
PROVIDERS: ATTEND Nurse Practitioner Family
DX: E05.80 Other thyrotoxicosis without thyrotoxic crisis or storm (principal)

== ENCOUNTER 2019-12-06 13:56 | Inpatient (IN) | payer MEDICARE ==
[~2019-12-06] VITALS: Ht 167.6 cm; Wt 63.7 kg
[~2019-12-06 13:56] MED LIST changes: -LEVO250T12 PO; -[UNRECOGNIZED DRUG - CODE] PO
[2019-12-06] MEDS ORDERED: methylPREDNISolone 125MG 2ML VIAL IV ONE (15:00)
[2019-12-06] MEDS ORDERED: COMBIVENT RESPIMAT 100-20MCG INHALER 4GM INH ONE (15:00)
[2019-12-06 15:41] LABS: ABG pH (ARTERIAL) 7.244 UNITS (7.350-7.450)
[2019-12-06 15:42] LABS: ABG BASE EXCESS 2.8 (-2.0-2.0); ABG HCO3 32.2 MEQ/L (22.0-26.0); ABG O2 SATURATION 97.5 % (95.0-99.0); ABG PARTIAL PRESSURE CO2 76.1 mmHg (35.0-45.0); ABG PARTIAL PRESSURE O2 95.1 mmHg (75.0-100.0); ABG TOTAL CO2 34.5 MEQ/L (23.0-31.0)
--- NOTE | 2019-12-06 16:47 | REPVR ---
PROCEDURE INFORMATION: Exam: US Duplex Lower Extremity Veins, Bilateral Exam date and time: 12/06/2019 4:23 PM Age: 64 years old Clinical indication: Pain; Leg, lower; Bilateral; Additional info: Edema R/O dvt TECHNIQUE: Imaging protocol: Real-time duplex ultrasound of the extremities with 2-D lundberg scale, color Doppler flow and spectral waveform analysis with image documentation. Complete exam focused on the bilateral lower extremity veins. COMPARISON: US Duplex, Ext LOWER veins, bilat 02/20/2018 9:35 AM FINDINGS: Right deep veins: Unremarkable. The common femoral, femoral, popliteal and posterior tibial veins are patent without thrombus. Normal Doppler waveforms. Normal compressibility and/or augmentation response. Right superficial veins: Saphenofemoral junction is patent without thrombus. Left deep veins: Unremarkable. The common femoral, femoral, popliteal and posterior tibial veins are patent without thrombus. Normal Doppler waveforms. Normal compressibility and/or augmentation response. Left superficial veins: Saphenofemoral junction is patent without thrombus. Soft tissues: Unremarkable. IMPRESSION: No sonographic evidence of deep vein thrombosis. Electronically signed by: Leo Schwab On 12/06/2019 16:47:16 PM
[2019-12-06 17:04] LABS: BASO % 0.2 % (0.0-1.0); EOS % 0.2 % (0.0-3.0); HEMATOCRIT 36.7 % (36.0-47.0); HEMOGLOBIN 10.6 g/dl (12.0-15.5); LYMPH # 1.3 10^3/uL (1.5-5.0); LYMPH % 23.2 % (24.0-44.0); MEAN CORPUSCULAR HEMOGLOBIN 25.9 pg (27.0-33.0); MEAN CORPUSCULAR HGB CONC 28.9 g/dl (32.0-36.5); MEAN CORPUSCULAR VOLUME 89.7 fl (80.0-96.0); MONO # 0.3 10^3/uL (0.0-0.8); MONO % 6.2 % (0.0-5.0); NEUTROPHILS # 3.8 10^3/uL (1.5-8.5); NEUTROPHILS % 69.7 % (36.0-66.0); PLATELET COUNT, AUTOMATED 162 10^3/uL (150-450); RED BLOOD COUNT 4.09 10^6/uL (4.00-5.40); WHITE BLOOD COUNT 5.5 10^3/uL (4.0-10.0)
[2019-12-06 17:20] LABS: INR 1.04; PROTHROMBIN TIME 13.8 SECONDS (11.8-14.0)
[2019-12-06 17:36] LABS: ALBUMIN 2.9 GM/DL (3.2-5.2); ALT/SGPT 36 U/L (12-78); BILIRUBIN,DIRECT 0.1 MG/DL (0.0-0.2); BILIRUBIN,TOTAL 0.3 MG/DL (0.2-1.0); BLOOD UREA NITROGEN 24 MG/DL (7-18); CALCIUM LEVEL 7.9 MG/DL (8.8-10.2); CARBON DIOXIDE LEVEL 36 MEQ/L (21-32); CHLORIDE LEVEL 104 MEQ/L (98-107); CK-MB VALUE MASS 1.5 NG/ML (<3.6); CPK CREATINE PHOSPHOKINASE 31 U/L (26-192); CREATININE FOR GFR 1.02 MG/DL (0.55-1.30); GLOMERULAR FILTRATION RATE 57.9 (>45); GLUCOSE, FASTING 94 MG/DL (70-100); MB/CK RELATIVE INDEX 4.84 (< OR =4); NT-PRO BNP 3927 PG/ML (<125); POTASSIUM SERUM 4.9 MEQ/L (3.5-5.1); SODIUM LEVEL 140 MEQ/L (136-145); THYROID STIMULATING HORMONE 0.314 uIU/ML (0.358-3.740); TROPONIN I < 0.02 NG/ML (< 0.10)
[2019-12-06] MEDS ORDERED: IPRATROPIUM 0.5MG/ALBUTEROL 2.5MG INH SOL UD 3ML (DUONEB) NEB ONE (19:00)
[2019-12-06] MEDS ORDERED: ISOVUE-370 76% 100ML VIAL As Ordered ONE (19:13)
--- NOTE | 2019-12-06 20:17 | REPVR ---
PROCEDURE INFORMATION: Exam: CT Angiography Chest With Contrast Exam date and time: 12/06/2019 7:59 PM Age: 64 years old Clinical indication: Shortness of breath; Additional info: SOB TECHNIQUE: Imaging protocol: Computed tomographic angiography of the chest with intravenous contrast. Axial, coronal and sagittal reformatted images were created and reviewed. 3D rendering (Not supervised by radiologist): MIP and/or 3D reconstructed images were created by the technologist. Radiation optimization: All CT scans at this facility use at least one of these dose optimization techniques: automated exposure control; mA and/or kV adjustment per patient size (includes targeted exams where dose is matched to clinical indication); or iterative reconstruction. Contrast material: ISOVUE 370; Contrast volume: 75 ml; Contrast route: INTRAVENOUS (IV); COMPARISON: CT ANGIO CHEST 02/20/2018 9:18 AM FINDINGS: Tubes, catheters and devices: Right-sided chest port in place. Pulmonary arteries: Contrast opacification satisfactory. No intraluminal filling defect. Aorta: Mild atherosclerotic disease. No aneurysm or dissection. Lungs: Mild central peribronchial thickening, suggestive of airway inflammation. Marked interval improvement in right lower lobe consolidation with a small amount of residual subsegmental consolidation. Resolved spiculated left lower lobe infiltrate. New focus of nodular infiltration in the right upper lobe, measuring approximately 9 mm. Patchy areas of ground-glass infiltration with associated interlobular septal thickening, predominantly at the right greater than left upper lobes, possibly due to mild edema. Mild linear/discoid stranding, likely due to atelectasis and/or scarring. Pleural space: New small right pleural effusion. Trace left pleural effusion, similar to prior. Heart: Unremarkable. No cardiomegaly. No pericardial effusion. Lymph nodes: Mild mediastinal and bilateral hilar lymphadenopathy, similar to prior. Adrenals: 3.3 x 2.4 cm right adrenal adenoma (no follow-up is indicated based on the imaging appearance). Bones/joints: No acute osseous abnormality. Osteopenia. Degenerative changes. Soft tissues: Unremarkable. IMPRESSION: 1. No CT evidence of pulmonary embolism. 2. Marked interval improvement in right lower lobe consolidation with a small amount of residual subsegmental consolidation. Resolved spiculated left lower lobe infiltrate. 3. New focus of nodular infiltration in the right upper lobe, measuring approximately 9 mm. 4. Patchy areas of ground-glass infiltration with associated interlobular septal thickening, predominantly at the right greater than left upper lobes, possibly due to mild edema. 5. Mild mediastinal and bilateral hilar lymphadenopathy, similar to prior. 6. New right greater than left pleural effusions. 7. Additional findings, as above. Electronically signed by: Leo Schwab On 12/06/2019 20:17:08 PM
[2019-12-06] MEDS ORDERED: ALBUTEROL SULFATE 2.5 MG/0.5 ML INH NEB SOLN NEB PRN (21:00)
[2019-12-06] MEDS ORDERED: GLUCAGON INJ 1MG VIAL SC PRN (21:00)
[2019-12-06] MEDS ORDERED: GLUCOSE 4GM CHEW TABLET PO PRN (21:00)
[2019-12-06] MEDS ORDERED: DEXTROSE 50% 50 ML SYRINGE IV PRN (21:00)
[2019-12-06] MEDS ORDERED: FUROSEMIDE 40MG/4ML VIAL (J1940) IV ONE (21:00)
[2019-12-06 22:47] LABS: ABG PARTIAL PRESSURE CO2 67.2 mmHg (35.0-45.0); ABG PARTIAL PRESSURE O2 112.1 mmHg (75.0-100.0); ABG pH (ARTERIAL) 7.297 UNITS (7.350-7.450)
[2019-12-06 22:48] LABS: ABG BASE EXCESS 3.9 (-2.0-2.0); ABG HCO3 32.1 MEQ/L (22.0-26.0); ABG O2 SATURATION 98.5 % (95.0-99.0); ABG TOTAL CO2 34.2 MEQ/L (23.0-31.0)
--- NOTE | 2019-12-06 23:06 | HPEPDOC ---
[facility] Medical History & Physical Date of Admission Dec 06, 2019 Date of Service: Dec 06, 2019 Other Provider Elsie Kim Attending Physician: CORRINE NUNES MD History and Physical TIME OF SERVICE: 920PM CHIEF COMPLAINT: shortness of breath HISTORY OF PRESENT ILLNESS: This 64 yr old F presented w c/o shortness of breath for 3 or 4 days that improved a bit with supplemental O2 and her combivent and is worse when she tries to climb stairs. She has had similar symptoms in the past when she was diagnosed with PNA. She has also noticed that both of her ankles are swollen. She denies having f/c, chest pain, dizziness, sick contacts, traveling or a change in her chronic cough. She was sent from her Oncologists office for evaluation. 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 HOME MEDICATIONS: Please see below. PHYSICAL EXAMINATION: Vital Signs Date Time Temp Pulse Resp B/P (MAP) Pulse Ox O2 Delivery O2 Flow Rate FiO2 12/06/19 14:02 99.3 92 22 133/66 94 Nasal Cannula 3.0 GENERAL APPEARANCE: slim build /well developed / NAD HEENT: MM pink but dry / trachea midline CARDIOVASCULAR: RRR/NMRG LUNGS: not using accessory muscles / breath sounds diminished MUSCULOSKELETAL: NCAT / TAI x 4 INTEGUMENT: no pallor NEUROLOGICAL: CN 2-12 grossly intact /+ asterisks PSYCHIATRIC: A&O / able to understand and follow commands LABORATORY DATA: 12/06/19 16:34 12/06/19 15:35: Blood Gas Bicarbonate Standard 27.0H, Arterial Blood pH 7.244*L, Arterial Blood Partial Pressure CO2 76.1*H, Arterial Blood Partial Pressure O2 95.1, Arterial Blood Total CO2 34.5H, Arterial Blood HCO3 32.2H, Arterial Blood Base Excess 2.8H, Arterial Blood Oxygen Saturation 97.5 8/27/20 16:34: Immature Granulocyte % (Auto) 0.5, Neutrophils (%) (Auto) 69.7H, Lymphocytes (%) (Auto) 23.2L, Monocytes (%) (Auto) 6.2H, Eosinophils (%) (Auto) 0.2, Basophils (%) (Auto) 0.2, Neutrophils # (Auto) 3.8, Lymphocytes # (Auto) 1.3L, Monocytes # (Auto) 0.3, Eosinophils # (Auto) 0.0, Basophils # (Auto) 0.0, Nucleated Red Blood Cells % (auto) 0.0, Prothrombin Time 13.8, Prothromb Time International Ratio 1.04, Anion Gap 0L, Glomerular Filtration Rate 57.9, Calcium Level 7.9L, Total Bilirubin 0.3, Direct Bilirubin 0.1, Aspartate Amino Transf (AST/SGOT) 25, Alanine Aminotransferase (ALT/SGPT) 36, Alkaline Phosphatase 129H, Total Creatine Kinase 31, Creatine Kinase MB 1.5, Creatine Kinase MB Relative Index 4.84H, Troponin I < 0.02, VQ-Kyq-U-Type Natriuretic Peptide 3927H, Total Protein 6.0L, Albumin 2.9L, Albumin/Globulin Ratio 0.9L, Thyroid Stimulating Hormone (TSH) 0.314L IMAGING: BLE US IMPRESSION: No sonographic evidence of deep vein thrombosis. CTA chest IMPRESSION: 1. No CT evidence of pulmonary embolism.2. Marked interval improvement in right lower lobe consolidation with a small amount of residual subsegmental consolidation. Resolved spiculated left lower lobe infiltrate. 3. New focus of nodular infiltration in the right upper lobe, measuring approximately 9 mm. 4. Patchy areas of ground-glass infiltration with associated interlobular septal thickening, predominantly at the right greater than left upper lobes, possibly due to mild edema. 5. Mild mediastinal and bilateral hilar lymphadenopathy, similar to prior. 6. New right greater than left pleural effusions. 7. Additional findings, as above. MICROBIOLOGY: 12/06/19 Blood Culture, Received Pending 12/06/19 Blood Culture, Received Pending 12/06/19 Respiratory Virus Panel (PCR) ([facility]) - Final, Complete ASSESSMENT: is a 64 yr old smoker w a hx of COPD, nocturnal O2 dependence, hx of laryngeal cancer, hx of right sided pleural effusion requiring a chest tube and multiple benign lung nodules who presented with worsening dyspnea, and ankle swelling was found to have an elevated BNP; her symptoms may be due to a combination of fluid overload and acute COPD. PLAN: 1 Acute COPD Cause TBD Plan: admit to PCU / supplemental O2 / pulse oximetry / aspiration precautions / COPD diet / f/u repeat ABG / Dunebs Q6H, Albuterol Q1HP, Prednisone + PPI / no abx bc cough is the same / refer to [facility] for repeat PFTs and Pulmonary Rehab when ready for d/c 2. Possible Fluid Overload Elevated BNP possibly 2/2 fluid overload from Pulm HTN or new on set CHF Plan: Is, Os, daily weights, low salt diet with fluid restriction, Lasix, f/u trops, TSH and Echo 3. Respiratory Acidosis / Acute Hypercapnia 2/2 COPD Hypercapnia likely cause of asterisks Plan: treat COPD / f/u repeat ABG 4. Pleural Effusions Plan: day time team to consider CT Surgery consult for thoracentesis if this doesnt improve w diuretics 5. New 9mm Pulm Nodule Plan: day time team to discuss arranging repeat elective bx w Pulm 6. 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 Anxiety/Depression Plan: mirtazapine 8. Tobacco Abuse Plan: pt volunteered that is she is try to quit smoking 9. HTN Plan: Irbesartan DVT Px w SCDs Dispo: home after more than 2 midnights stay /PT consult has been placed for early mobilization Home Medications Scheduled Dexamethasone (Dexpak) 1.5 Mg Tab.ds.pk, 1 TAB PO ASDIRECTED Esomeprazole Magnesium (Esomeprazole Magnesium) 40 Mg Cap, 40 MG PO QPM Irbesartan (Irbesartan) 150 Mg Tab, 75 MG PO QPM Levofloxacin (Levofloxacin) 250 Mg Tablet, 250 MG PO DAILY@06 Mirtazapine (Mirtazapine) 15 Mg Tab.rapdis, 30 MG PO QHS Sitagliptin (Januvia) 50 Mg Tablet, 50 MG PO QPM Tiotropium Br/Olodaterol HCl (Stiolto Respimat Inhal [place]) 1 Aer Aer, 2 PUFFS INH DAILY Zolpidem Tartrate (Ambien) 10 Mg Tablet, 10 MG PO QHS Scheduled PRN Acetaminophen (Acetaminophen 8 Hour) 650 Mg Tablet.er, 650 MG PO DAILYPRN PRN for PAIN Ipratropium/Albuterol Sulfate (Combivent Respimat 20-100 Mcg) 1 Aer Aer, 1 PUFF INH QID PRN for SHORTNESS OF BREATH Allergies Coded Allergies: prednisone (Verified Allergy, Severe, JOINT PAIN, DIFFICULTY BREATHING, 02/14/19) Penicillins (Verified Allergy, Intermediate, HIVES, VOMIT, 02/14/19) Sulfa (Sulfonamide Antibiotics) (Verified Allergy, Intermediate, HIVES, VOMIT, 02/14/19) A-FIB/CHADSVASC A-FIB History Current/History of A-Fib/PAF?: No Current PO Anticoag Therapy: No CORRINE NUNES MD Dec 06, 2019 23:06
[2019-12-06] MEDS: IRBESARTAN 150MG TAB PO SCH (23:15)
[2019-12-06] MEDS ORDERED: PILL CUTTER 1 EACH XX PRN (23:30)
[2019-12-06] MEDS: OMEPRAZOLE 20 MG CAP PO SCH (23:58)
[2019-12-06] MEDS: methylPREDNISolone 125MG 2ML VIAL IV SCH (23:58)
[2019-12-06] MEDS: zolPIDEM TARTRATE 5 MG TAB PO PRN (23:59)
[2019-12-06] MEDS: FUROSEMIDE 40MG/4ML VIAL (J1940) IV SCH (23:59)
[2019-12-06] MEDS: MIRTAZAPINE 15 MG TAB PO SCH (23:59)
[2019-12-07] VITALS (26 sets, daily range): BP systolic 104–125; BP diastolic 56–70; O2SAT 84–96
[2019-12-07 00:41] LABS: PHOSPHORUS LEVEL 3.5 MG/DL (2.5-4.9); TROPONIN I < 0.02 NG/ML (< 0.10)
[2019-12-07] MEDS: IPRATROPIUM 0.5MG/ALBUTEROL 2.5MG INH SOL UD 3ML (DUONEB) NEB SCH ×5 (01:44→23:31)
[2019-12-07] MEDS: FUROSEMIDE 40MG/4ML VIAL (J1940) IV SCH ×2 (04:53→09:40)
[2019-12-07 04:55] LABS: HEMATOCRIT 41.6 % (36.0-47.0); HEMOGLOBIN 12.1 g/dl (12.0-15.5); MEAN CORPUSCULAR HEMOGLOBIN 26.2 pg (27.0-33.0); MEAN CORPUSCULAR HGB CONC 29.1 g/dl (32.0-36.5); PLATELET COUNT, AUTOMATED 180 10^3/uL (150-450); RED BLOOD COUNT 4.62 10^6/uL (4.00-5.40); WHITE BLOOD COUNT 3.7 10^3/uL (4.0-10.0)
[2019-12-07] MEDS: methylPREDNISolone 125MG 2ML VIAL IV SCH ×4 (05:30→23:55)
[2019-12-07] MEDS: HumaLOG INSULIN (NovoLOG) PER UNIT SC SCH ×3 (05:30→18:05)
[2019-12-07 05:58] LABS: CREATININE FOR GFR 1.25 MG/DL (0.55-1.30); GLOMERULAR FILTRATION RATE 45.8 (>45); MAGNESIUM LEVEL 2.3 MG/DL (1.8-2.4); POTASSIUM SERUM 4.6 MEQ/L (3.5-5.1)
[2019-12-07] MEDS ORDERED: PANTOPRAZOLE 40MG TAB (PROTONIX) PO SCH (09:00)
[2019-12-07] MEDS: SODIUM CHLORIDE 0.9% INJ 10 ML SYR IV PRN (09:39)
[2019-12-07] MEDS: ENOXAPARIN 40MG/0.4ML SYRINGE (J1650 PER 10MG) SC SCH (09:40)
[2019-12-07 11:28] LABS: ABG pH (ARTERIAL) 7.207 UNITS (7.350-7.450)
[2019-12-07 11:29] LABS: ABG BASE EXCESS 6.7 (-2.0-2.0); ABG HCO3 37.9 MEQ/L (22.0-26.0); ABG PARTIAL PRESSURE CO2 97.5 mmHg (35.0-45.0); ABG PARTIAL PRESSURE O2 71.4 mmHg (75.0-100.0); ABG STANDARD HCO3 30.5 MEQ/L (22.0-26.0); ABG TOTAL CO2 40.8 MEQ/L (23.0-31.0)
[2019-12-07 11:44] LABS: CALCIUM LEVEL 8.1 MG/DL (8.8-10.2); CREATININE FOR GFR 1.29 MG/DL (0.55-1.30); GLOMERULAR FILTRATION RATE 44.2 (>45); POTASSIUM SERUM 4.9 MEQ/L (3.5-5.1)
[2019-12-07] MEDS ORDERED: HumaLOG INSULIN (NovoLOG) PER UNIT SC SCH ×3 (12:00→21:00)
[2019-12-07] MEDS ORDERED: GLUCOSE 4GM CHEW TABLET PO PRN (12:15)
[2019-12-07] MEDS ORDERED: GLUCAGON INJ 1MG VIAL SC PRN (12:15)
[2019-12-07] MEDS ORDERED: DEXTROSE 50% 50 ML SYRINGE IV PRN (12:15)
--- NOTE | 2019-12-07 14:46 | IPNPDOC ---
Text Note Date of Service The patient was seen on 12/07/19. NOTE Subjective: Pt denies CP/SOB/palpitations. No N/V/abd pain. PHYSICAL EXAMINATION: Vitals: (see below) General: No acute distress, laying comfortably in bed. HEENT: Moist mucous membranes. Neck: No JVD or lymphadenopathy Cardiac: RRR, No murmurs Pulm: Crackles at the bases b/l. No wheezing, rhonchi Abd: NT/ND + BS Ext: No edema or cyanosis Neuro: Strength 5/5 BUE and BLE. AAO x3 PLAN: 1 Acute COPD exacerbation with Acute Hypercapneic Respiratory Failure. Tansfer to ICU for BIPAP; discussed with Dr. Ga who recc 22/09. Cont steroids, nebs, Levaquin added. 2. 1Bld cx+ - Started on vanco pending final cx' 3. Pleural Effusions - s/p diuresis 4. Pulm nodules: F/u with pulm outpt 5.. 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 Anxiety/Depression Plan: mirtazapine 6. Tobacco Abuse - cessation counseling 9. HTN - cont current meds DVT prophy: Lovenox SQ VS,Fishbone, I+O VS, Fishbone, I+O Laboratory Tests 12/06/19 16:34 12/07/19 04:40 12/07/19 08:28 Vital Signs Date Time Temp Pulse Resp B/P (MAP) Pulse Ox O2 Delivery O2 Flow Rate FiO2 12/07/19 12:40 93 NIPPV (BIPAP/CPAP) 35 12/07/19 12:24 98.6 82 18 116/58 (77) 3.0 I&O- Last 24 Hours up to 6 AM 12/07/19 06:00 Intake Total 810 ml Output Total 700 ml Balance 110 ml ENE CORRAL MD Dec 07, 2019 14:46
[2019-12-07] MEDS ORDERED: LevoFLOXacin IV 500 MG in IV 1 EA IV ONE (15:00)
[2019-12-07 15:04] LABS: ABG PARTIAL PRESSURE O2 85.2 mmHg (75.0-100.0); ABG TOTAL CO2 35.1 MEQ/L (23.0-31.0); ABG pH (ARTERIAL) 7.206 UNITS (7.350-7.450)
[2019-12-07 15:05] LABS: ABG BASE EXCESS 2.4 (-2.0-2.0); ABG HCO3 32.5 MEQ/L (22.0-26.0); ABG O2 SATURATION 96.5 % (95.0-99.0); ABG STANDARD HCO3 2.4 MEQ/L (22.0-26.0)
[2019-12-07] MEDS: VANCOMYCIN HCL 1,000 MG, VIAL MATE ADAPTER 1 EACH in D5W 250 ML IV SCH (16:37)
[2019-12-07 17:02] LABS: ABG PARTIAL PRESSURE CO2 94.8 mmHg (35.0-45.0); ABG PARTIAL PRESSURE O2 94.1 mmHg (75.0-100.0); ABG TOTAL CO2 41.7 MEQ/L (23.0-31.0)
[2019-12-07 17:03] LABS: ABG BASE EXCESS 8.2 (-2.0-2.0); ABG HCO3 38.8 MEQ/L (22.0-26.0)
[2019-12-07 20:49] LABS: BLOOD UREA NITROGEN 39 MG/DL (7-18); CARBON DIOXIDE LEVEL 39 MEQ/L (21-32); CHLORIDE LEVEL 98 MEQ/L (98-107); CREATININE FOR GFR 1.27 MG/DL (0.55-1.30); GLUCOSE, FASTING 132 MG/DL (70-100); SODIUM LEVEL 136 MEQ/L (136-145)
[2019-12-07 21:18] LABS: ABG BASE EXCESS 8.7 (-2.0-2.0); ABG HCO3 35.3 MEQ/L (22.0-26.0); ABG O2 SATURATION 97.9 % (95.0-99.0); ABG PARTIAL PRESSURE CO2 59.3 mmHg (35.0-45.0); ABG PARTIAL PRESSURE O2 99.6 mmHg (75.0-100.0); ABG STANDARD HCO3 32.5 MEQ/L (22.0-26.0); ABG TOTAL CO2 37.2 MEQ/L (23.0-31.0); ABG pH (ARTERIAL) 7.393 UNITS (7.350-7.450)
[2019-12-07] MEDS: OMEPRAZOLE 20 MG CAP PO SCH (22:04)
[2019-12-07] MEDS: MIRTAZAPINE 15 MG TAB PO SCH (22:04)
[2019-12-07] MEDS: IRBESARTAN 150MG TAB PO SCH (22:05)
[2019-12-07] MEDS: zolPIDEM TARTRATE 5 MG TAB PO PRN (22:11)
[2019-12-08] VITALS (22 sets, daily range): BP systolic 100–127; BP diastolic 55–63; O2SAT 88–95
[2019-12-08] MEDS: HumaLOG INSULIN (NovoLOG) PER UNIT SC SCH ×5 (00:01→21:00)
[2019-12-08] MEDS: VANCOMYCIN HCL 1,000 MG, VIAL MATE ADAPTER 1 EACH in D5W 250 ML IV SCH ×2 (03:37→15:11)
[2019-12-08] MEDS: IPRATROPIUM 0.5MG/ALBUTEROL 2.5MG INH SOL UD 3ML (DUONEB) NEB SCH ×5 (04:04→20:01)
[2019-12-08] MEDS: LevoFLOXacin IV 250 MG in IV 1 EA IV SCH (05:42)
[2019-12-08] MEDS: methylPREDNISolone 125MG 2ML VIAL IV SCH ×3 (05:42→17:49)
[2019-12-08 06:08] LABS: HEMATOCRIT 35.7 % (36.0-47.0); HEMOGLOBIN 10.5 g/dl (12.0-15.5); LYMPH # 0.8 10^3/uL (1.5-5.0); LYMPH % 20.7 % (24.0-44.0); MEAN CORPUSCULAR HEMOGLOBIN 25.7 pg (27.0-33.0); MEAN CORPUSCULAR HGB CONC 29.4 g/dl (32.0-36.5); MEAN CORPUSCULAR VOLUME 87.3 fl (80.0-96.0); MONO # 0.2 10^3/uL (0.0-0.8); MONO % 4.3 % (0.0-5.0); NEUTROPHILS % 74.5 % (36.0-66.0); PLATELET COUNT, AUTOMATED 164 10^3/uL (150-450); RED BLOOD COUNT 4.09 10^6/uL (4.00-5.40)
[2019-12-08 06:29] LABS: ALBUMIN 2.7 GM/DL (3.2-5.2); BILIRUBIN,TOTAL 0.4 MG/DL (0.2-1.0); CREATININE FOR GFR 1.26 MG/DL (0.55-1.30); GLOMERULAR FILTRATION RATE 45.4 (>45); POTASSIUM SERUM 4.8 MEQ/L (3.5-5.1); TOTAL PROTEIN 5.6 GM/DL (6.4-8.2)
[2019-12-08 06:34] LABS: ABG PARTIAL PRESSURE CO2 66.2 mmHg (35.0-45.0); ABG PARTIAL PRESSURE O2 86.7 mmHg (75.0-100.0); ABG TOTAL CO2 33.9 MEQ/L (23.0-31.0)
[2019-12-08 06:35] LABS: ABG BASE EXCESS 3.9 (-2.0-2.0); ABG HCO3 31.8 MEQ/L (22.0-26.0); ABG STANDARD HCO3 27.9 MEQ/L (22.0-26.0)
[2019-12-08 06:36] LABS: ABG O2 SATURATION 96.6 % (95.0-99.0)
[2019-12-08] MEDS: ENOXAPARIN 40MG/0.4ML SYRINGE (J1650 PER 10MG) SC SCH (08:28)
[2019-12-08] MEDS: guaiFENesin ER 600 MG TAB PO SCH ×2 (10:23→21:31)
--- NOTE | 2019-12-08 12:05 | IPNPDOC ---
Text Note Date of Service The patient was seen on 12/08/19. NOTE Subjective: Pt feeling better. ABG improving. Dyspnea improving. Denies CP/Pa lpitations. No N/V/Abd pain. PHYSICAL EXAMINATION: Vitals: (see below) General: No acute distress, laying comfortably in bed. HEENT: Moist mucous membranes. Neck: No JVD or lymphadenopathy Cardiac: RRR, No murmurs Pulm: Crackles at the bases b/l. No wheezing, rhonchi Abd: NT/ND + BS Ext: No edema or cyanosis Neuro: Strength 5/5 BUE and BLE. AAO x3 PLAN: 1 Acute COPD exacerbation with Acute Hypercapneic Respiratory Failure.In ICU for BIPAP;Appreciate DR. Oconnell's assistance with BIPAP management. Cont steroids, nebs, Cont Levaquin. 2. 1Bld cx+ - Started on vanco pending final cx'. ? Contaminant. Repeat bld cx. 3. Pleural Effusions - s/p diuresis 4. Pulm nodules: F/u with pulm outpt 5.. 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 Anxiety/Depression Plan: mirtazapine 6. Tobacco Abuse - cessation counseling 9. HTN - cont current meds DVT prophy: Lovenox SQ VS,Fishbone, I+O VS, Fishbone, I+O Laboratory Tests 12/07/19 19:45 12/08/19 05:36 Vital Signs Date Time Temp Pulse Resp B/P (MAP) Pulse Ox O2 Delivery O2 Flow Rate FiO2 12/08/19 11:00 73 98 Nasal Cannula 1.0 12/08/19 08:00 24 12/08/19 08:00 97.5 16 115/63 (80) I&O- Last 24 Hours up to 6 AM 12/08/19 06:00 Intake Total 970 ml Output Total 1400 ml Balance -430 ml ENE CORRAL MD Dec 08, 2019 12:05
[2019-12-08 12:19] LABS: ABG HCO3 29.2 MEQ/L (22.0-26.0); ABG PARTIAL PRESSURE CO2 49.3 mmHg (35.0-45.0); ABG PARTIAL PRESSURE O2 60.1 mmHg (75.0-100.0); ABG TOTAL CO2 30.7 MEQ/L (23.0-31.0)
[2019-12-08 12:20] LABS: ABG BASE EXCESS 3.5 (-2.0-2.0); ABG O2 SATURATION 91.6 % (95.0-99.0); ABG STANDARD HCO3 27.5 MEQ/L (22.0-26.0)
[2019-12-08] MEDS: STIOLTO INH SCH (15:11)
[2019-12-08] MEDS: OMEPRAZOLE 20 MG CAP PO SCH (21:30)
[2019-12-08] MEDS: IRBESARTAN 150MG TAB PO SCH (21:31)
[2019-12-08] MEDS: MIRTAZAPINE 15 MG TAB PO SCH (21:31)
[2019-12-08] MEDS: zolPIDEM TARTRATE 5 MG TAB PO PRN (21:31)
[2019-12-09] VITALS (11 sets, daily range): BP systolic 108–139; BP diastolic 52–71; O2SAT 91–94
[2019-12-09] MEDS: methylPREDNISolone 125MG 2ML VIAL IV SCH ×3 (00:42→17:57)
[2019-12-09] MEDS: IPRATROPIUM 0.5MG/ALBUTEROL 2.5MG INH SOL UD 3ML (DUONEB) NEB SCH ×7 (04:00→23:27)
[2019-12-09] MEDS: LevoFLOXacin IV 250 MG in IV 1 EA IV SCH (05:18)
[2019-12-09] MEDS: HumaLOG INSULIN (NovoLOG) PER UNIT SC SCH ×4 (07:28→20:08)
[2019-12-09 07:58] LABS: HEMATOCRIT 37.6 % (36.0-47.0); HEMOGLOBIN 11.2 g/dl (12.0-15.5); LYMPH # 0.7 10^3/uL (1.5-5.0); LYMPH % 17.4 % (24.0-44.0); MEAN CORPUSCULAR HEMOGLOBIN 25.5 pg (27.0-33.0); MEAN CORPUSCULAR HGB CONC 29.8 g/dl (32.0-36.5); MEAN CORPUSCULAR VOLUME 85.5 fl (80.0-96.0); MONO # 0.1 10^3/uL (0.0-0.8); MONO % 2.4 % (0.0-5.0); NEUTROPHILS % 79.9 % (36.0-66.0); PLATELET COUNT, AUTOMATED 170 10^3/uL (150-450); WHITE BLOOD COUNT 3.8 10^3/uL (4.0-10.0)
[2019-12-09] MEDS: STIOLTO INH SCH (08:19)
[2019-12-09 08:22] LABS: ALBUMIN 2.7 GM/DL (3.2-5.2); BILIRUBIN,TOTAL 0.3 MG/DL (0.2-1.0); C REACTIVE PROTEIN QUANTITATIV 0.61 MG/DL (0.00-0.30); CALCIUM LEVEL 8.2 MG/DL (8.8-10.2); CREATININE FOR GFR 1.2 MG/DL (0.55-1.30); POTASSIUM SERUM 4.4 MEQ/L (3.5-5.1)
[2019-12-09] MEDS: guaiFENesin ER 600 MG TAB PO SCH ×2 (08:36→20:15)
[2019-12-09] MEDS: ENOXAPARIN 40MG/0.4ML SYRINGE (J1650 PER 10MG) SC SCH (08:36)
[2019-12-09] MEDS ORDERED: VANCOMYCIN HCL 1,000 MG, VIAL MATE ADAPTER 1 EACH in D5W 250 ML IV SCH (10:00)
--- NOTE | 2019-12-09 11:16 | IPNPDOC ---
Text Note Date of Service The patient was seen on 12/09/19. NOTE Subjective: Pt feeling better. Not requiring BIPAP any more. Dyspnea improved Denies CP/Palpitations. No N/V/Abd pain. PHYSICAL EXAMINATION: Vitals: (see below) General: No acute distress, laying comfortably in bed. HEENT: Moist mucous membranes. Neck: No JVD or lymphadenopathy Cardiac: RRR, No murmurs Pulm: Crackles at the bases b/l. No wheezing, rhonchi Abd: NT/ND + BS Ext: No edema or cyanosis Neuro: Strength 5/5 BUE and BLE. AAO x3 PLAN: 1 Acute COPD exacerbation with Acute Hypercapneic Respiratory Failure. Improvoed on BIPAP;Appreciate DR. Oconnell's assistance with BIPAP management--> transfer to med surg as no longed requiring bipap. Taper steroids to solumedrol 60mg IV BID. nebs, Cont Levaquin. 2. 1Bld cx+ - initially tarted on vanco pending final cx'. Likely Contaminant. Repeat bld cx pending. D/c Vanco given staph hominis and observe. 3. Pleural Effusions - s/p diuresis 4. Pulm nodules: F/u with pulm outpt 5.. 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 Anxiety/Depression Plan: mirtazapine 6. Tobacco Abuse - cessation counseling 9. HTN - cont current meds DVT prophy: Lovenox SQ PT consult VS,Macarena, I+O VS, Samantae, I+O Laboratory Tests 12/09/19 07:39 Vital Signs Date Time Temp Pulse Resp B/P (MAP) Pulse Ox O2 Delivery O2 Flow Rate FiO2 12/09/19 08:00 93 Nasal Cannula 1.0 12/09/19 08:00 97.7 87 18 139/69 (92) 12/08/19 09:00 I&O- Last 24 Hours up to 6 AM 12/09/19 06:00 Intake Total 1990 ml Output Total 1450 ml Balance 540 ml ENE CORRAL MD Dec 09, 2019 11:16
[2019-12-09] MEDS: SODIUM CHLORIDE 0.9% INJ 10 ML SYR IV PRN (18:02)
[2019-12-09] MEDS: OMEPRAZOLE 20 MG CAP PO SCH (20:15)
[2019-12-09] MEDS: MIRTAZAPINE 15 MG TAB PO SCH (20:15)
[2019-12-09] MEDS: IRBESARTAN 150MG TAB PO SCH (20:17)
[2019-12-09] MEDS: zolPIDEM TARTRATE 5 MG TAB PO PRN (21:59)
[2019-12-10] MEDS: IPRATROPIUM 0.5MG/ALBUTEROL 2.5MG INH SOL UD 3ML (DUONEB) NEB SCH ×6 (04:00→23:02)
[2019-12-10 06:00] VITALS: BP 114/56
[2019-12-10] MEDS: LevoFLOXacin 250 MG TABLET PO SCH (06:00)
[2019-12-10] MEDS: methylPREDNISolone 125MG 2ML VIAL IV SCH (06:01)
[2019-12-10] MEDS: HumaLOG INSULIN (NovoLOG) PER UNIT SC SCH ×4 (08:20→21:00)
[2019-12-10] MEDS: guaiFENesin ER 600 MG TAB PO SCH ×2 (08:20→21:07)
[2019-12-10] MEDS: ENOXAPARIN 40MG/0.4ML SYRINGE (J1650 PER 10MG) SC SCH (08:21)
[2019-12-10] MEDS: STIOLTO INH SCH (09:00)
[2019-12-10 10:00] VITALS: BP 117/57
--- NOTE | 2019-12-10 13:01 | IPNPDOC ---
Text Note Date of Service The patient was seen on 12/10/19. NOTE Subjective: . Dyspnea improved Denies CP/Palpitations. No N/V/Abd pain. No acute changes overnight. PHYSICAL EXAMINATION: Vitals: (see below) General: No acute distress, laying comfortably in bed. HEENT: Moist mucous membranes. Neck: No JVD or lymphadenopathy Cardiac: RRR, No murmurs Pulm: Minimal fine Crackles at the bases b/l; improved. No wheezing, rhonchi Abd: NT/ND + BS Ext: No edema or cyanosis Neuro: Strength 5/5 BUE and BLE. AAO x3 PLAN: 1 S/p Acute COPD exacerbation with Acute Hypercapnic Respiratory Failure. Improvoed on BIPAP;Appreciate DR. Oconnell's assistance with BIPAP management--> transfer to med surg as no longed requiring bipap. Taper steroids to solumedrol 60mg IV BID--> 40 BID, cont nebs, Cont Levaquin. 2. 1Bld cx+ - initially started on vanco pending final cx'. Likely Contaminant. Repeat bld cx pending. D/c Vanco given staph hominis and observe. 3. Pleural Effusions - s/p diuresis 4. Pulm nodules: F/u with pulm outpt 5.. 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 Anxiety/Depression Plan: mirtazapine 6. Tobacco Abuse - cessation counseling 9. HTN - cont current meds DVT prophy: Lovenox SQ PT consult Likely for d/c in 1-2 days. VS,Fishbone, I+O VS, Fishbone, I+O Vital Signs Date Time Temp Pulse Resp B/P (MAP) Pulse Ox O2 Delivery O2 Flow Rate FiO2 12/10/19 06:00 98.6 84 20 114/56 (75) 98 Nasal Cannula 4.0 12/08/19 09:00 I&O- Last 24 Hours up to 6 AM 12/10/19 06:00 Intake Total 1240 ml Output Total 0 ml Balance 1240 ml ENE CORRAL MD Dec 10, 2019 13:01
[2019-12-10 14:00] VITALS: BP 133/79
[2019-12-10] MEDS: methylPREDNISolone 40MG 1ML VIAL IV SCH (17:35)
[2019-12-10 18:00] VITALS: BP 125/67
[2019-12-10] MEDS: zolPIDEM TARTRATE 5 MG TAB PO PRN (21:06)
[2019-12-10 21:07] VITALS: BP 124/66
[2019-12-10] MEDS: MIRTAZAPINE 15 MG TAB PO SCH (21:07)
[2019-12-10] MEDS: IRBESARTAN 150MG TAB PO SCH (21:07)
[2019-12-10] MEDS: OMEPRAZOLE 20 MG CAP PO SCH (21:10)
[2019-12-10 22:00] VITALS: BP 124/66
[2019-12-10] MEDS ORDERED: SODIUM CHLORIDE 0.9% INJ 10 ML SYR IV PRN (23:00)
[2019-12-11 02:00] VITALS: BP 109/61
[2019-12-11] MEDS: IPRATROPIUM 0.5MG/ALBUTEROL 2.5MG INH SOL UD 3ML (DUONEB) NEB SCH ×3 (02:12→12:00)
[2019-12-11] MEDS: methylPREDNISolone 40MG 1ML VIAL IV SCH (05:04)
[2019-12-11] MEDS: LevoFLOXacin 250 MG TABLET PO SCH (05:04)
[2019-12-11 06:00] VITALS: BP 108/62
[2019-12-11] MEDS: guaiFENesin ER 600 MG TAB PO SCH (08:02)
[2019-12-11] MEDS: HumaLOG INSULIN (NovoLOG) PER UNIT SC SCH ×2 (08:03→13:10)
[2019-12-11] MEDS: ENOXAPARIN 40MG/0.4ML SYRINGE (J1650 PER 10MG) SC SCH (08:03)
[2019-12-11] MEDS ORDERED: SODIUM CHLORIDE 0.9% INJ 10 ML SYR IV SCH (09:00)
[2019-12-11 10:00] VITALS: BP 140/71
[2019-12-11] MEDS: STIOLTO INH SCH (12:20)
--- NOTE | 2019-12-11 13:06 | ECHO ---
DATE OF PROCEDURE: 12/07/2019 Age: 64 Gender: Female Height: 168 cm Weight: 60 kg REFERRING PHYSICIAN: Shira Henriquez MD INDICATION: Dyspnea. MEASUREMENTS: 2D Measurements: Aortic root 3.4 cm Left atrium 4.1 cm Left atrial volume index 39 cm Left ventricle diastole 4.2 cm Interventricular septum 1.05 cm Posterior wall 0.86 cm Right ventricle 4.8 cm Inferior vena cava 2.4 cm with marked production of respiratory variation suggestive of elevated central venous pressure of at least 20 mmHg. Doppler Measurements: No aortic stenosis No aortic regurgitation Aortic valve velocity 212 cm/s LVOT velocity 120 cm/s LVOT VTI 27.5 cm No mitral regurgitation No mitral stenosis Mitral E velocity 120 cm/s Mitral A velocity 101 cm/s Mitral deceleration time 225 msec Very mild tricuspid regurgitation Estimated right ventricular systolic pressure at least 59 mmHg Estimated right atrial pressure 20 mmHg MITRAL ANNULAR TISSUE DOPPLER E prime septal 7.8 cm/s, E prime lateral 12.8 cm/s DESCRIPTION: Rhythm was sinus. Image quality was fair. No pericardial effusion. This was a 2D, M-mode, color flow Doppler, and pulsed wave Doppler examination including mitral annular tissue Doppler. CONCLUSIONS: 1. Suggestive of at least moderate elevation of estimated right ventricle systolic pressure (at least 59 mmHg). Mild right ventricle dilatation. Normal left ventricle systolic function. Moderate right atrial dilatation by visual assessment. 2. Structurally normal appearing tricuspid leaflets. Very mild tricuspid regurgitation. Suggestive of central venous pressure of at least 20 mmHg. Inferior vena cava plethora with marked reduction of respiratory variation. 3. Moderate left atrial dilatation by left atrial volume index. 4. Mild aortic valve sclerosis of a 3-cuspid aortic valve. No aortic regurgitation. 5. Otherwise normal appearing echocardiogram Doppler findings. 6. Hyperdynamic left ventricle systolic function. LVEF of 75% by visual assessment. No regional LV wall motion abnormalities. Normal LV size and wall thickness. Normal LV diastolic function. MTDD
[2019-12-11] MEDS ORDERED: LEVO250T12 PO (13:25)
[2019-12-11] MEDS ORDERED: [UNRECOGNIZED DRUG - CODE] PO (13:25)
--- NOTE | 2019-12-11 14:52 | DS.PDOC ---
Discharge Summary General Date of Admission Dec 06, 2019 at 20:59 Date of Discharge 12/11/19 Discharge Summary Hospitalist Discharge Summary dictated job #[id number] Vital Signs/I&Os Vital Signs Date Time Temp Pulse Resp B/P (MAP) Pulse Ox O2 Delivery O2 Flow Rate FiO2 12/11/19 10:00 98.4 85 16 140/71 (94) 95 Nasal Cannula 1.0 12/08/19 09:00 I&O- Last 24 Hours up to 6 AM 12/11/19 06:00 Intake Total 1120 ml Output Total 1075 ml Balance 45 ml Microbiology Microbiology 12/09/19 Blood Culture - Preliminary, Resulted No Growth after 48 hours. All Specime... 12/09/19 Blood Culture - Preliminary, Resulted No Growth after 48 hours. All Specime... 12/06/19 Blood Culture - Preliminary, Resulted No Growth after 72 hours. All specime... 12/06/19 Blood Culture - Final, Complete Staphylococcus Hominis Ssp Mathieu 12/06/19 Respiratory Virus Panel (PCR) ([facility]) - Final, Complete Discharge Medications Scheduled Dexamethasone (Dexpak) 1.5 Mg Tab.ds.pk, 1 TAB PO ASDIRECTED Esomeprazole Magnesium (Esomeprazole Magnesium) 40 Mg Cap, 40 MG PO QPM, (Reported) Irbesartan (Irbesartan) 150 Mg Tab, 75 MG PO QPM, (Reported) Levofloxacin (Levofloxacin) 250 Mg Tablet, 250 MG PO DAILY@06 Mirtazapine (Mirtazapine) 15 Mg Tab.rapdis, 30 MG PO QHS, (Reported) Sitagliptin (Januvia) 50 Mg Tablet, 50 MG PO QPM, (Reported) Tiotropium Br/Olodaterol HCl (Stiolto Respimat Inhal [place]) 1 Aer Aer, 2 PUFFS INH DAILY, (Reported) Zolpidem Tartrate (Ambien) 10 Mg Tablet, 10 MG PO QHS, (Reported) Scheduled PRN Acetaminophen (Acetaminophen 8 Hour) 650 Mg Tablet.er, 650 MG PO DAILYPRN PRN for PAIN, (Reported) Ipratropium/Albuterol Sulfate (Combivent Respimat 20-100 Mcg) 1 Aer Aer, 1 PUFF INH QID PRN for SHORTNESS OF BREATH, (Reported) Allergies Coded Allergies: prednisone (Verified Allergy, Severe, JOINT PAIN, DIFFICULTY BREATHING, 02/14/19) Penicillins (Verified Allergy, Intermediate, HIVES, VOMIT, 02/14/19) Sulfa (Sulfonamide Antibiotics) (Verified Allergy, Intermediate, HIVES, VOMIT, 02/14/19) PRAFUL BOONE MD Dec 11, 2019 14:52
--- NOTE | 2019-12-18 15:59 | REP ---
TWO-VIEW CHEST COMPARISON: Multiple, the latest 02/14/2019 a portable exam. REASON FOR EXAM: Cough and dyspnea. FINDINGS: The tip of the MediPort device is unchanged remaining in the superior vena cava. There is mild cardiomegaly. Once again, there is a diffuse increase in the interstitial markings throughout the lung schultz. There is a new patchy opacity in the right lung base blunting the right CP angle. A patchy opacity seen previously in the right upper lobe has cleared; however, there is evidence of unchanged biapical pleural parenchymal scarring. There is no significant change in the appearance of the osseous structures. IMPRESSION: 1. New right lower lobe opacity with right pleural effusion. Suspect pneumonia; however, correlate clinically with appropriate follow-up. 2. Cardiomegaly. 3. Evidence of chronic interstitial lung disease as described above. Correlate clinically to rule out the possibility of generalized acute disease superimposed upon chronic changes. 4. Cardiomegaly. 5. Other findings as described above. MTDD
--- NOTE | 2019-12-19 10:30 | ECGEPIP ---
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
--- NOTE | 2020-01-07 15:51 | DSES ---
DATE OF ADMISSION: 12/06/2019 DATE OF DISCHARGE: 12/11/2019 PRIMARY DISCHARGE DIAGNOSES: 1. Acute chronic obstructive pulmonary disease exacerbation. 2. Acute hypercapnic respiratory failure status post bilevel positive airway pressure. Managed by produce sorter, Dr. Oconnell. 3. Contaminated blood culture. 4. Bilateral pleural effusions. 5. Pulmonary nodules. 6. Squamous cell cancer of the right hypopharynx, base of the tongue, and right larynx. 7. Anxiety and depression. 8. Tobacco abuse. 9. Hypertension. DISCHARGE MEDICATIONS: - Decadron taper due to history of prednisone intolerance - Levaquin 250 daily for 4 days - acetaminophen 650 daily as needed - Prilosec 40 mg every evening - Combivent one puff four times a day as needed - irbesartan 75 mg every evening - mirtazapine 30 mg every night - Januvia 50 mg every evening - Respimat inhaler, two puffs daily - Ambien 10 mg every night HOSPITAL COURSE: This is a 64-year-old female with history of at least moderate pulmonary hypertension, right ventricular pressure of 59 mm of mercury, mild tricuspid regurgitation. Ejection fraction was 75%. Previous history of smoking, anxiety, depression, right hypopharynx, tongue, and larynx squamous cell cancer (CA). Follows with radiation oncology and medical oncology. Pulmonary nodules. Presents to the emergency room with dyspnea, found to have acute chronic obstructive pulmonary disease (COPD) exacerbation and hypercapnic respiratory failure requiring bilevel positive airway pressure (BiPAP) therapy and management in the intensive care unit (ICU) on admission. Arterial blood gas was 7.2, CO2 of 76, increasing to 97.5, requiring BiPAP therapy. Patient was placed on intravenous (IV) Solu-Medrol nebulizer treatment. Improved on BiPAP. Echocardiogram showed right ventricular pressure of 59 mm of mercury. Normal left ventricular diastolic and systolic function with ejection fraction of 75%. Natriuretic peptide was 3927. Patient had diuresis with trial of Lasix and maintained normal renal function. Patient had symptomatic improvement but stated that she is allergic to prednisone, therefore was changed to Decadron from IV Solu-Medrol. Patient remained on 1 liter of oxygen at all times with saturations decreasing to 86% with ambulation, 89%-99% on 1 liter nasal cannula at rest. PHYSICAL EXAMINATION ON DISCHARGE: Temperature 98.4, pulse 85, respiratory rate 16, blood pressure 140/71, 95% on 1 liter nasal cannula. GENERAL: Patient is awake, alert, oriented to person, place, and time, answering questions appropriately. Moist mucous membranes. No jugular venous distention (JVD) or thyromegaly. No cervical lymphadenopathy. LUNGS: Diminished with bibasilar crackles. No wheezing or rhonchi. HEART: S1, S2, sinus rhythm. No murmurs, rubs, or gallops. ABDOMEN: Soft, nontender, nondistended. Positive bowel sounds. EXTREMITIES: No cyanosis, clubbing, or any pitting edema. LABORATORY DATA ON DISCHARGE: White count 3.8, hemoglobin 11, hematocrit 37, platelet count 170. Sodium 138, potassium 4.4, chloride 101, bicarbonate 34, BUN 45, creatinine 1.2, glucose 204. Microbiology: Respiratory panel negative. Staphylococcus hominis in blood culture, one of two sets September 04, two sets on December 08, no growth after 48 hours. Venous Dopplers of bilateral lower extremities: No deep venous thrombosis (DVT). CT chest on December 05: Peribronchial thickening suggestive of airway inflammation. Marked improvement in the right lower lobe consolidation. Spiculated left lower lobe infiltrate. New nodular infiltrate in the right upper lobe measuring 9 mm. Mild mediastinal bilateral hilar lymphadenopathy. New right greater than left pleural effusions. TIME SPENT ON DISCHARGE: 30 minutes. MTDD
== END 2019-12-11 14:47 | disposition home or self-care (01) | DRG 189 ==
LOC: M ED 13:56 → M ED INP 20:59 → ENRESERV 21:38 → M PCU 23:18 → M ICU 12-07 12:22 → M MSPAV 12-09 13:29
PROVIDERS: ADMIT Internal Medicine; ATTEND General Practice
DX: J96.01 Acute respiratory failure with hypoxia (principal); J44.1 Chronic obstructive pulmonary disease with (acute) exacerbation; R91.8 Other nonspecific abnormal finding of lung field; F41.9 Anxiety disorder, unspecified; F32.9 Major depressive disorder, single episode, unspecified; F17.200 Nicotine dependence, unspecified, uncomplicated; I10 Essential (primary) hypertension; C14.0 Malignant neoplasm of pharynx, unspecified; C01 Malignant neoplasm of base of tongue

== ENCOUNTER → 2019-12-25 | Outpatient (REF) | payer MEDICARE ==
[~2019-12-25] MED LIST changes: +LEVO250T12 PO; +[UNRECOGNIZED DRUG - CODE] PO
[2019-12-25 14:28] LABS: FREE T4 1.41 NG/DL (0.76-1.46); THYROID STIMULATING HORMONE 0.856 uIU/ML (0.358-3.740)
== END ==
LOC: M LAB REF 13:25
PROVIDERS: ATTEND Internal Medicine Endocrinology, Diabetes & Metabolism
DX: E05.80 Other thyrotoxicosis without thyrotoxic crisis or storm (principal)

== ENCOUNTER → 2020-05-01 | Outpatient (REF) | payer MEDICARE, BC ==
[~2020-05-01] MED LIST changes: +IBUP1TAB5 PO; -IBUP40TA PO
[2020-05-01 15:14] LABS: FREE T4 1.21 NG/DL (0.76-1.46); THYROID STIMULATING HORMONE 0.885 uIU/ML (0.358-3.740)
== END ==
LOC: M LAB REF 13:35
PROVIDERS: ATTEND Nurse Practitioner Family
DX: E05.80 Other thyrotoxicosis without thyrotoxic crisis or storm (principal)

== ENCOUNTER → 2020-05-21 | Outpatient (CLI) | payer MEDICARE ==
[~2020-05-21] MED LIST changes: +LIDOCAINE 2% 100MG/5ML SDV (FOR ANES.) As Ordered ONE; +PHENYLephrine 500MCG 5ML (100MCG/ML) SYRINGE As Ordered ONE; +propofoL 500 MG/50 ML VIAL As Ordered ONE
--- NOTE | 2020-05-21 17:04 | REP ---
INDICATION: DYSPNEA COMPARISON: 12/06/2019 TECHNIQUE: PA and lateral. FINDINGS: [id number] with tip in the SVC. The mediastinum and cardiac silhouette are normal. No focal consolidation, effusion, or pneumothorax. The skeletal structures are intact and normal. IMPRESSION: No focal consolidation or effusion. <Electronically signed by Jamin Guaman > 05/21/20 [id number]
== END ==
LOC: M RAD 14:39
PROVIDERS: ATTEND Internal Medicine Pulmonary Disease
DX: R06.00 Dyspnea, unspecified (principal)
CPT/HCPCS: 71046; J2370

== ENCOUNTER 2020-09-21 02:26 | Inpatient (IN) | payer MEDICARE ==
[~2020-09-21] VITALS: Ht 167.6 cm; Wt 61.9 kg
[~2020-09-21 02:26] MED LIST changes: -EZET1TAB10 PO; -LIDOCAINE 2% 100MG/5ML SDV (FOR ANES.) As Ordered ONE; -PHENYLephrine 500MCG 5ML (100MCG/ML) SYRINGE As Ordered ONE; +[UNRECOGNIZED DRUG - CODE] PO; -propofoL 500 MG/50 ML VIAL As Ordered ONE
[2020-09-21] MEDS ORDERED: LEVO500T3 PO (02:36)
[2020-09-21 04:16] LABS: BASO % 0.2 % (0.0-1.0); EOS # 0.1 10^3/uL (0.0-0.5); EOS % 1.2 % (0.0-3.0); HEMATOCRIT 38.9 % (36.0-47.0); HEMOGLOBIN 11.6 g/dl (12.0-15.5); LYMPH # 1.9 10^3/uL (1.5-5.0); LYMPH % 20.9 % (24.0-44.0); MEAN CORPUSCULAR HEMOGLOBIN 25.6 pg (27.0-33.0); MEAN CORPUSCULAR HGB CONC 29.8 g/dl (32.0-36.5); MEAN CORPUSCULAR VOLUME 85.7 fl (80.0-96.0); MONO # 0.7 10^3/uL (0.0-0.8); MONO % 7.4 % (2.0-8.0); NEUTROPHILS # 6.2 10^3/uL (1.5-8.5); NEUTROPHILS % 69.9 % (36.0-66.0); PLATELET COUNT, AUTOMATED 179 10^3/uL (150-450); RED BLOOD COUNT 4.54 10^6/uL (4.00-5.40); WHITE BLOOD COUNT 8.9 10^3/uL (4.0-10.0)
[2020-09-21] MEDS: IPRATROPIUM 0.5MG/ALBUTEROL 2.5MG INH SOL UD 3ML (DUONEB) NEB SCH ×5 (04:19→19:16)
[2020-09-21 04:45] LABS: ALBUMIN 2.9 GM/DL (3.2-5.2); ALT/SGPT 10 U/L (12-78); BILIRUBIN,DIRECT < 0.1 MG/DL (0.0-0.2); BILIRUBIN,TOTAL 0.3 MG/DL (0.2-1.0); BLOOD UREA NITROGEN 21 MG/DL (7-18); CALCIUM LEVEL 7.7 MG/DL (8.8-10.2); CARBON DIOXIDE LEVEL 34 MEQ/L (21-32); CHLORIDE LEVEL 97 MEQ/L (98-107); CK-MB VALUE MASS < 1.0 NG/ML (<3.6); CPK CREATINE PHOSPHOKINASE 34 U/L (26-192); CREATININE FOR GFR 1.05 MG/DL (0.55-1.30); GLOMERULAR FILTRATION RATE 55.8 (>45); GLUCOSE, FASTING 119 MG/DL (70-100); MB/CK RELATIVE INDEX 2.94 (< OR =4); NT-PRO BNP 1544 PG/ML (<125); POTASSIUM SERUM 4.5 MEQ/L (3.5-5.1); SODIUM LEVEL 133 MEQ/L (136-145); TROPONIN I < 0.02 NG/ML (< 0.10)
--- NOTE | 2020-09-21 04:45 | REPVR ---
PROCEDURE INFORMATION: Exam: XR Chest Exam date and time: 09/21/2020 3:34 AM Age: 65 years old Clinical indication: Other: Dyspnea/cough TECHNIQUE: Imaging protocol: XR of the chest. Views: 1 view. COMPARISON: CR Chest, 2 view PA, Lat 05/21/2020 2:47 PM FINDINGS: LUNGS and PLEURAL SPACE: The lungs are symmetrically expanded. Lung volumes are within normal limits. There are slightly elevated reticular/interstitial lung markings, which appears slightly greater than on the prior study. This could be secondary to mild vascular congestion/edema or interstitial infiltrate/pneumonitis. Clinical correlation is advised. No evidence of peribronchial thickening. There is no consolidation, pneumothorax, or pleural effusion. MEDIASTINUM: There is no mediastinal shift or widening. There is nodular masslike enlargement of the pulmonary pino, right appearing greater than left. This is similar to the prior exam, allowing for differences in technique. Underlying mass or lymphadenopathy cannot be excluded. CARDIAC SILHOUETTE: Cardiothoracic ratio is within normal limits. Aortic atherosclerosis noted. BONY THORAX: No acute findings are seen. OTHER: Right-sided chest port again noted. Catheter tip appears unchanged at the level of the distal SVC. IMPRESSION: Mildly elevated interstitial lung markings, differential as discussed above. Enlarged pulmonary pino as discussed above. Electronically signed by: Kev Cedeno On 09/21/2020 04:45:19 AM
[2020-09-21] MEDS ORDERED: HYDR-3363 PO (05:04)
[2020-09-21] MEDS ORDERED: PRAV20TA2 PO (05:04)
[2020-09-21] MEDS ORDERED: MIRT-60 PO (05:04)
[2020-09-21] MEDS ORDERED: methylPREDNISolone 125MG 2ML VIAL IV STA (05:16)
[2020-09-21] MEDS ORDERED: ALBUTEROL SULFATE 2.5 MG/0.5 ML INH NEB SOLN NEB PRN (05:20)
--- NOTE | 2020-09-21 05:23 | HPEPDOC ---
[facility] Medical History & Physical Date of Admission Sep 21, 2020 Date of Service: Sep 21, 2020 Primary Care Physician: A Attending Physician: CORRINE NUNES MD History and Physical TIME OF SERVICE: 545am CHIEF COMPLAINT: cough HISTORY OF PRESENT ILLNESS: has had a cough productive of yellow sputum for 3 days. She was stared on Levaquin by and has taken 3 doses; she felt like the medication was helping but overnight she developed sudden worsening of her dyspnea, her O2 sats remained persistently in the 80s and she was worried that her PCO2 was high so she came to the ER. She denies having LE edema & thinks this was triggered by smoking. 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 HOME MEDICATIONS: Please see below. PHYSICAL EXAMINATION: Vital Signs Date Time Temp Pulse Resp B/P (MAP) Pulse Ox O2 Delivery O2 Flow Rate FiO2 09/21/20 02:27 99.3 114 28 167/79 (108) 86 Room Air 09/21/20 05:21 40 GENERAL APPEARANCE: slim build / well developed/ NAD HEENT: BIPAP mask in place CARDIOVASCULAR: RRR/NMRG LUNGS: breath sound diminished / she is not using accessory muscles ABDOMEN: contour flat MUSCULOSKELETAL: NCAT / TAI x 4 INTEGUMENT: not cyanotic, flushed or pale NEUROLOGICAL: speech not dysarthric / no asterixis PSYCHIATRIC: A&Ox 3 LABORATORY DATA: IMAGING: Chest xray IMPRESSION: Mildly elevated interstitial lung markings, differential as discussed above. Enlarged pulmonary pino as discussed above. MICROBIOLOGY: + rhinovirus ASSESSMENT: is a 64 yr old smoker w a hx of COPD, nocturnal O2 dependence, hx of laryngeal cancer in remission who is admitted for acute hypoxemic hypercapneic respiratory failure / acute COPD 2/2 smoking & Rhinovirus. PLAN: 1 Acute BIPAP dependent hypoxemic hypercapnic respiratory failure / Acute COPD 2/2 smoking & rhinovirus [place] chronic obstructive pulmonary disease risk scare (OCRS) guide to admission vs discharge in COPD exacerbation = 4 points = high risk (supports in-patient admission status) Plan: admit to ICU for BIPAP/ continuous pulse oximetry / aspiration precauti ons / f/u repeat ABG if improved the day time team may consider starting her on a COPD diet / DuoNebs Q6H, Albuterol Q4HP, Solumedrol w PPI / c/w Levofloxacin / smoking cessation education 2 SIRS vs Sepsis ? 2/2 Rhinovirus She has tachycardia and tachypnea Plan: f/u blood cx 3 NN Anemia Plan: f/u CBC 4 Mild Hyponatremia Asymptomatic Plan: f/u BMP 5 Anxiety/Depression Plan: mirtazapine 6 Essential HTN Plan: Irbesartan DVT Px w Lovenox Dispo: home after more than 2 midnights stay Home Medications Scheduled Esomeprazole Magnesium (Esomeprazole Magnesium) 40 Mg Cap, 40 MG PO QPM Irbesartan (Irbesartan) 150 Mg Tab, 75 MG PO QPM Levofloxacin (Levofloxacin) 500 Mg Tablet, 500 MG PO DAILY started 09/17/20 x 10 days Mirtazapine (Remeron) 30 Mg Tablet, 30 MG PO BID Pravastatin Sodium (Pravastatin Sodium) 20 Mg Tablet, 20 MG PO QPM Tiotropium Br/Olodaterol HCl (Stiolto Respimat Inhal [place]) 1 Aer Aer, 2 PUFFS INH DAILY Zolpidem Tartrate (Ambien) 10 Mg Tablet, 10 MG PO QHS Scheduled PRN Acetaminophen (Acetaminophen 8 Hour) 650 Mg Tablet.er, 650 MG PO DAILYPRN PRN for PAIN Hydroxyzine HCl (Hydroxyzine HCl) 25 Mg Tablet, 25 MG PO BID PRN for ANXIETY Ipratropium/Albuterol Sulfate (Combivent Respimat 20-100 Mcg) 1 Aer Aer, 1 PUFF INH QID PRN for SHORTNESS OF BREATH Allergies Coded Allergies: prednisone (Verified Allergy, Severe, JOINT PAIN, DIFFICULTY BREATHING, 02/14/19) Penicillins (Verified Allergy, Intermediate, HIVES, VOMIT, 02/14/19) Sulfa (Sulfonamide Antibiotics) (Verified Allergy, Intermediate, HIVES, VOMIT, 11/6/19) A-FIB/CHADSVASC A-FIB History Current/History of A-Fib/PAF?: No Current PO Anticoag Therapy: No CORRINE NUNES MD Sep 21, 2020 05:23
[2020-09-21] MEDS: LevoFLOXacin IV 750 MG in IV 1 EA IV SCH (06:48)
[2020-09-21] MEDS ORDERED: hydrOXYzine 25 MG TAB PO PRN (06:50)
[2020-09-21 08:15] LABS: ABG BASE EXCESS 5.3 (-2.0-2.0); ABG HCO3 32.3 MEQ/L (22.0-26.0); ABG O2 SATURATION 97.9 % (95.0-99.0); ABG PARTIAL PRESSURE CO2 59.2 mmHg (35.0-45.0); ABG PARTIAL PRESSURE O2 108.5 mmHg (75.0-100.0); ABG STANDARD HCO3 29.3 MEQ/L (22.0-26.0); ABG TOTAL CO2 34.1 MEQ/L (23.0-31.0); ABG pH (ARTERIAL) 7.355 UNITS (7.350-7.450)
[2020-09-21] MEDS ORDERED: PANTOPRAZOLE 40MG VIAL (C9113 PER 1) IV SCH (09:00)
[2020-09-21 09:17] VITALS: BP 138/75
[2020-09-21] MEDS: MIRTAZAPINE 15 MG TAB PO SCH ×2 (09:55→20:08)
[2020-09-21] MEDS: ENOXAPARIN 40MG/0.4ML SYRINGE (J1650 PER 10MG) SC SCH (09:55)
[2020-09-21 11:54] VITALS: BP 138/77
[2020-09-21] MEDS ORDERED: methylPREDNISolone 125MG 2ML VIAL IV SCH ×2 (15:00)
[2020-09-21 15:26] VITALS: BP 110/58
[2020-09-21] MEDS ORDERED: IPRATROPIUM 0.5MG/ALBUTEROL 2.5MG INH SOL UD 3ML (DUONEB) NEB PRN (16:40)
[2020-09-21 17:22] LABS: ABG BASE EXCESS 4.5 (-2.0-2.0); ABG HCO3 31.7 MEQ/L (22.0-26.0); ABG O2 SATURATION 91.1 % (95.0-99.0); ABG PARTIAL PRESSURE CO2 59.6 mmHg (35.0-45.0); ABG PARTIAL PRESSURE O2 59.8 mmHg (75.0-100.0); ABG STANDARD HCO3 28.4 MEQ/L (22.0-26.0); ABG TOTAL CO2 33.6 MEQ/L (23.0-31.0); ABG pH (ARTERIAL) 7.344 UNITS (7.350-7.450)
--- NOTE | 2020-09-21 17:27 | REP ---
INDICATION: sob. History of lung and head and neck malignancy. COMPARISON: Comparison chest CT study December 06, 2019 and June 05, 2019.. TECHNIQUE: Helical scanning is acquired. 3 mm axial images are generated. Coronal and sagittal MPR and coronal MIP images are generated. FINDINGS: Preliminary digital nurse ob radiograph is unremarkable. There is a right-sided Wbqehr-[id number] catheter with its tip in the cyst region of the superior vena cava. There is curvilinear opacification in the right lower lobe and right middle lobe consistent with platelike atelectasis. No pleural effusion is seen. Vascular calcification is noted. There is mediastinal and right hilar adenopathy visible on this noncontrast study. This appears to be essentially unchanged from the December 06, 2019 study. There is a stable spiculated 10 mm nodular density in the right upper lobe on page 35 of 104 series 201 of today's study. There are 2 adjacent metallic fiducial markers anterior to this. There is a stable 4 mm noncalcified pleural based nodule in the left upper lobe on page 41. There is a new 8 mm noncalcified pulmonary nodule in the left lower lobe on page 67. Several of the previously noted nodular opacities on June 05, 2019 have regressed or resolved. No other new nodule is appreciated. No focal infiltrate is seen. IMPRESSION: Emphysematous changes predominately affecting the upper lobes. Fiducial markers and stable spiculated nodule right upper lobe. New 8 mm noncalcified nodule in the left lower lobe. Right lower lobe and right middle lobe platelike atelectasis changes. No pleural effusion is seen. Stable mediastinal and right hilar adenopathy. <Electronically signed by Teddy Loyola > 09/21/20 [id number]
[2020-09-21 20:00] VITALS: BP 118/58
[2020-09-21] MEDS: methylPREDNISolone 125MG 2ML VIAL IV SCH (20:08)
[2020-09-21] MEDS: IRBESARTAN 150MG TAB PO SCH (20:09)
[2020-09-21] MEDS ORDERED: zolPIDEM TARTRATE 5 MG TAB PO ONE (22:35)
[2020-09-22] VITALS (8 sets, daily range): BP systolic 121–144; BP diastolic 61–79
[2020-09-22] MEDS: IPRATROPIUM 0.5MG/ALBUTEROL 2.5MG INH SOL UD 3ML (DUONEB) NEB SCH ×7 (00:24→23:34)
[2020-09-22 05:43] LABS: HEMATOCRIT 38.4 % (36.0-47.0); HEMOGLOBIN 11.5 g/dl (12.0-15.5); MEAN CORPUSCULAR HEMOGLOBIN 25.8 pg (27.0-33.0); MEAN CORPUSCULAR HGB CONC 29.9 g/dl (32.0-36.5); MEAN CORPUSCULAR VOLUME 86.3 fl (80.0-96.0); PLATELET COUNT, AUTOMATED 174 10^3/uL (150-450); RED BLOOD COUNT 4.45 10^6/uL (4.00-5.40); WHITE BLOOD COUNT 4.7 10^3/uL (4.0-10.0)
[2020-09-22] MEDS: LevoFLOXacin IV 750 MG in IV 1 EA IV SCH (05:44)
[2020-09-22 06:08] LABS: CALCIUM LEVEL 8.1 MG/DL (8.8-10.2); CREATININE FOR GFR 1.22 MG/DL (0.55-1.30); GLOMERULAR FILTRATION RATE 46.9 (>45); POTASSIUM SERUM 5.1 MEQ/L (3.5-5.1)
[2020-09-22] MEDS: ENOXAPARIN 40MG/0.4ML SYRINGE (J1650 PER 10MG) SC SCH (08:52)
[2020-09-22] MEDS: MIRTAZAPINE 15 MG TAB PO SCH ×2 (08:52→20:13)
[2020-09-22] MEDS: methylPREDNISolone 125MG 2ML VIAL IV SCH ×2 (08:53→20:09)
[2020-09-22] MEDS ORDERED: guaiFENesin 200 MG TAB PO PRN (11:15)
[2020-09-22] MEDS ORDERED: DEXTROSE 50% 50 ML SYRINGE IV PRN (12:10)
[2020-09-22] MEDS ORDERED: GLUCOSE 4GM CHEW TABLET PO PRN (12:10)
[2020-09-22] MEDS ORDERED: GLUCAGON INJ 1MG VIAL SC PRN (12:10)
[2020-09-22] MEDS: HumaLOG INSULIN (NovoLOG) PER UNIT SC SCH ×2 (14:06→17:07)
--- NOTE | 2020-09-22 16:48 | ECGEPIP ---
[facility] - ED Test Date: 2020-09-21 Pat Name: SONA MARTINEZ Department: Room: [place] [address] Gender: Female Vest Finisher: Briana PADGETT : 1955 Requested By: EDDY Velez Order Number: [id number] Reading MD: Noemi Martin Measurements Intervals [place] Rate: 92 P: 72 CA: 134 QRS: 72 QRSD: 72 T: 50 QT: 328 QTc: 405 Interpretive Statements Normal sinus rhythm delayed r progression increased rate 12/06/19 Electronically Signed on 09-22-2020 16:48:10 EDT by Noemi Martin
--- NOTE | 2020-09-22 17:52 | IPNPDOC ---
Date Seen The patient was seen on 09/22/20. Progress Note SUBJECTIVE: Chelsy was seen and examined this morning by the hospitalist service while lying upright in bed. She reports continued productive cough of yellow sputum, but reports overall her breathing has significantly improved since admission yesterday morning. She denies any current or overnight fever, chills, night sweats, chest pain, palpitations, abdominal pain, nausea, or vomiting. She has yet to have a bowel movement since admission and has been voiding with no issues. OBJECTIVE PHYSICAL EXAMINATION: VITAL SIGNS: Please see below. GENERAL: Pleasant female lying upright in bed. Wearing supplement oxygen. In no significant acute distress. HEENT: Normocephalic, atraumatic. Noninjected, anicteric sclera. Conjunctival pallor. ORAL CAVITY: No pharyngeal erythema or exudate appreciated. MMM. Chest: There is a port present in the right upper chest. NECK: There is a palpable induration of the upper neck, specifically under the jaw; this makes it difficult to appreciate for lymphadenopathy. CARDIOVASCULAR: Borderline tachycardic rate, regular rhythm. Normal S1, S2. Systolic murmur present. No rubs appreciated. RESPIRATORY: Patient is currently receiving supplemental oxygen in the form of 3 L nasal cannula. There is no nicking visible accessory muscle use. Somewhat di minished breath sounds with decreased tidal volume, yet symmetric chest expansion. There are occasional mild wheezes appreciated as well as bibasilar crackles posteriorly. ABDOMINAL: Soft, nontender, nondistended. No guarding or rigidity appreciated. Normoactive bowel sounds throughout. EXTREMITIES: Bilateral lower extremity as a free pitting edema. 2+ radial pulses bilaterally. NEUROLOGICAL: No gross focal neurologic deficits appreciated. Non-dysarthric speech. Responding properly to questions and commands. PSYCHOLOGICAL: Pleasant mood. Affect appears appropriate. LABORATORY DATA, IMAGING STUDIES, MICROBIOLOGY: Please see below. ASSESSMENT AND PLAN: This is a 65yo female w/ notable h/o COPD on HS home O2 (2L), smoking, stage II SCC tongue/rt hypopharynx/rt larynx in remission s/p rad, who presented to the ED in the early hours of 09/21/20 c/o increased dyspnea from baseline w/ prod cou gh despite outpt abx. RVP was +rhinovirus and pt was subsequently admitted for acute hypoxic hypercapnic respiratory failure 2/2 rhinovirus, COPD exacerbation w/ CO2 retention, and nicotine dependence. #Acute hypoxic hypercapnic respiratory failure 2/2 rhinovirus/COPD exacerbation/80py tobacco hx -pt's respiratory demands have significantly decreased over the past 24 hours; she has been off BiPap for the last 24 hrs; was saturating in the mid-90s on 3L during today's exam w/ no accessory -Patient continues to have both DuoNebs scheduled and as needed; she is using her incentive spirometer -We decreased her steroids today due to her improved status. She will now be receiving 40 mg twice a day of IV Solu-Medrol. At this point. She still doesn't sound as good on exam as we like her to, but she has made great strides, so we will continue to de-escalate steroids based on her respiratory needs. -Due to the fact she was saturating well on 3 L during exam today, and that she uses 2 L at home, we manually switched down to 2L nc to see how she tolerates things -The patient had received 3 days of outpatient oral levofloxacin from her senior security analyst (Dr. Galvez), and had received 2 days of intravenous levofloxacin during this admission. Her pro-calcitonin was unremarkable, she has no white co unt, she has the rhinovirus, and has improved clinically, as result, we had stopped her antibiotics today -Both sputum culture and initial blood cultures remained pending at this time. #History of COPD, home HS O2 dependent -pt typically uses 2L hs, but due to increased O2 demand over the past few days prior to px, has been using 2L more or less continuously -See above for further respiratory status and plan #H/o NIDDMII -upon admission, no h/o DM waqs documented, nor did pharmacy reconcile any home DM meds -on speaking with pt today, she verbally confirms she has NIDDMII and takes me tformin at home -pt was placed on SSI and FSBS ac & hs w/ hypoGly protocol #Normochromic normocytic anemia, stable -Hemoglobin 11.5 this morning; remains stable. Continue to follow repeat CBC #History of hypertension -Pressures have remained well controlled during admission -Patient's home irbesartan was continued upon admission #History of anxiety and depression -Home mirtazapine continued #DVT prophylaxis: Lovenox sc Disposition: Downgraded to med/surg today VS, I&O, 24H, Fishbone Vital Signs/I&O Vital Signs Date Time Temp Pulse Resp B/P (MAP) Pulse Ox O2 Delivery O2 Flow Rate FiO2 09/22/20 12:00 3.0 09/22/20 08:00 97.5 101 20 121/68 (85) 90 Nasal Cannula 09/21/20 08:45 40 I&O- Last 24 Hours up to 6 AM 09/22/20 06:00 Intake Total 2015 ml Output Total 1175 ml Balance 840 ml Laboratory Data 24H LABS Laboratory Tests 2 09/22/20 05:12: Nucleated Red Blood Cells % (auto) 0.0, Anion Gap 3L, Glomerular Filtration Rate 46.9, Calcium Level 8.1L 09/22/20 14:01: Bedside Glucose (Misc Panel) 196H 09/22/20 17:04: Bedside Glucose (Misc Panel) 285H CBC/BMP Laboratory Tests 09/22/20 05:12 Microbiology Microbiology 09/21/20 Blood Culture - Preliminary, Resulted No growth after 24 hours . All specim... 09/21/20 Blood Culture - Preliminary, Resulted No growth after 24 hours . All specim... 09/21/20 Respiratory Virus Panel (PCR) ([facility]) - Final, Complete Human Rhinovirus/Enterovirus PRATEEK JEAN D.O. Sep 22, 2020 17:52
[2020-09-22] MEDS: IRBESARTAN 150MG TAB PO SCH (20:12)
[2020-09-22] MEDS ORDERED: HumaLOG INSULIN (NovoLOG) PER UNIT SC SCH (21:00)
[2020-09-22] MEDS ORDERED: SODIUM CHLORIDE 0.9% INJ 10 ML SYR IV PRN (21:25)
[2020-09-22] MEDS ORDERED: zolPIDEM TARTRATE 5 MG TAB PO PRN (22:10)
[2020-09-23 04:00] VITALS: BP 124/60
[2020-09-23] MEDS: IPRATROPIUM 0.5MG/ALBUTEROL 2.5MG INH SOL UD 3ML (DUONEB) NEB SCH ×4 (04:00→15:25)
[2020-09-23 06:00] VITALS: BP 124/60
[2020-09-23 06:40] LABS: BASO % 0.2 % (0.0-1.0); HEMOGLOBIN 12.2 g/dl (12.0-15.5); LYMPH # 1.4 10^3/uL (1.5-5.0); LYMPH % 23.6 % (24.0-44.0); MEAN CORPUSCULAR HEMOGLOBIN 25.7 pg (27.0-33.0); MEAN CORPUSCULAR VOLUME 88.4 fl (80.0-96.0); MONO # 0.3 10^3/uL (0.0-0.8); MONO % 5.5 % (2.0-8.0); NEUTROPHILS # 4.1 10^3/uL (1.5-8.5); NEUTROPHILS % 70.4 % (36.0-66.0); PLATELET COUNT, AUTOMATED 207 10^3/uL (150-450); RED BLOOD COUNT 4.75 10^6/uL (4.00-5.40); WHITE BLOOD COUNT 5.8 10^3/uL (4.0-10.0)
[2020-09-23 07:04] LABS: CALCIUM LEVEL 8.4 MG/DL (8.8-10.2); CREATININE FOR GFR 1.31 MG/DL (0.55-1.30); GLOMERULAR FILTRATION RATE 43.2 (>45); POTASSIUM SERUM 5.3 MEQ/L (3.5-5.1)
[2020-09-23] MEDS: MIRTAZAPINE 15 MG TAB PO SCH (08:38)
[2020-09-23] MEDS: ENOXAPARIN 40MG/0.4ML SYRINGE (J1650 PER 10MG) SC SCH (08:38)
[2020-09-23] MEDS: HumaLOG INSULIN (NovoLOG) PER UNIT SC SCH ×2 (08:39→12:21)
[2020-09-23] MEDS ORDERED: methylPREDNISolone 40MG 1ML VIAL IV SCH (09:00)
[2020-09-23] MEDS ORDERED: SODIUM CHLORIDE 0.9% INJ 10 ML SYR IV SCH (09:00)
[2020-09-23] MEDS ORDERED: SOD POLYSTYRENE SULFONATE SUSP 15 GM/60 ML UD PO ONE (09:00)
[2020-09-23] MEDS ORDERED: NS 1,000 ML IV SCH (09:45)
[2020-09-23] MEDS ORDERED: OMEPRAZOLE 20 MG CAP PO SCH (11:30)
[2020-09-23] MEDS ORDERED: FAMOTIDINE 20 MG TAB PO ONE (12:15)
[2020-09-23 14:00] VITALS: BP 126/65
[2020-09-23 15:32] LABS: CALCIUM LEVEL 8.1 MG/DL (8.8-10.2); CREATININE FOR GFR 1.28 MG/DL (0.55-1.30); GLOMERULAR FILTRATION RATE 44.4 (>45); POTASSIUM SERUM 4.3 MEQ/L (3.5-5.1)
[2020-09-23] MEDS ORDERED: MEDR4TAB PO (15:41)
--- NOTE | 2020-09-23 19:22 | DS.PDOC ---
Discharge Summary General Date of Admission Sep 21, 2020 at 05:16 Date of Discharge September 23, 2020 Attending Physician: KELLEE BRADSHAW MD Discharge Summary PROCEDURES PERFORMED DURING STAY: None. ADMITTING DIAGNOSES: -Acute BiPAP dependent hypoxic hypercapnic respiratory failure likely secondary to acute COPD exacerbation, rhinovirus, 86-czuj-yevb smoking history -SIRS versus questionable sepsis secondary to rhinovirus -Normocytic normochromic anemia Mild hyponatremia -Anxiety/depression -Essential hypertension DISCHARGE DIAGNOSES: -Acute hypoxic hypercapnic respiratory failure likely secondary to rhinovirus, COPD exacerbation, 66-ggbs-odzc tobacco history, resolved -Normocytic normochromic anemia, stable -Mild hyponatremia, resolved -History of COPD, home at bedtime O2 dependent -Anxiety/depression -Essential hypertension -Ufy-kqkvysl-fqamypafn diabetes mellitus type 2 -50-cmzp-qqoh smoking history COMPLICATIONS/CHIEF COMPLAINT: Copd Exacerbation. 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 The patient had been having productive cough of yellow sputum for 3 days and was subsequently prescribed levofloxacin by her outpatient caul fat puller (Dr. Galvez). The patient began taking the antibiotic and reported some moderate improvement in her symptoms after 3 doses. On the overnight of 09/20 into 09/21 she unfortunate began to experience acute worsening of her dyspnea. Apparently she was able to measure her oxygen saturation at home and was persistently in the 80s and subsequently became worried that her PCO2 was too high, prompting her to present to the ED. Upon presentation the ED, patient felt the trigger of her worsening dyspnea was her smoking and she denied any lower extremity edema. HOSPITAL COURSE: The patient was admitted to the ICU and administered bilevel noninvasive ventilation for hypercapnia on blood gas study. Her levofloxacin was continued but in intravenous form. Continuous pulse oximetry was ordered as were IV methylprednisolone with PPI, DuoNeb administrations and albuterol. Blood cultures were obtained. Patient also had normocytic normochromic anemia on initial blood count and mild hyponatremia on initial metabolic panel. Over the initial 24 hours after admission her respiratory status significantly improved and her respiratory needs decreased. She was taken off bilevel noninvasive ventilation later in the morning of 09/21 and upon reexamination on the morning of 09/22 was saturating in the mid 90s on 3 L nasal cannula. Due to her overall improved respiratory status, her IV methylprednisolone dosing was decreased to 40 mg twice a day. She uses 2 L nasal cannula at home at night, but over the previous few days with the increased dyspnea had been using the 2 L at most times. Her 3 L was decreased to 2 L to see how she would do on her home oxygen supplementation level. Procalcitonin was unremarkable, the patient had no white count on 09/22, and she had the known rhinovirus on respiratory viral panel and thus after receiving the 3 days of outpatient oral levofloxacin and 2 days of inpatient IV levofloxacin during this admission, her antibiotics were stopped. Her respiratory status continued to improve on 09/23 and she tolerated consistently staying at her home 2 L supplemental O2, with O2 sats in the mid to lower 90s. She had no overnight events and had no accessory muscle use. In terms of her respiratory status she had returned essentially to her baseline and was deemed appropriate for discharge. Related to her history of rwi-icqtnda-uomccjoqm diabetes mellitus type 2, she was placed on sliding scale insulin with hypoglycemic protocol on a consistent carb diet. Her sugars remained relatively well controlled over the 48+ hours in the hospital. On the morning of 09/23, her serum potassium bumped to 5.3 and she was given a one-time dose of 15 g oral Kayexalate. She also had a slight bump in her creatinine to 1.31 indicating borderline acute kidney injury. At this time her home irbesartan which was continued upon admission was stopped and she was given some IV fluid hydration. Repeat metabolic panel later in the day of discharge showed improved potassium as well as improved creatinine. Recommendation to patient was that she not take her irbesartan until following with her primary care physician in 3 to 5 days. As relates to her presenting normochromic normocytic anemia that remained stable on repeat CBC measurements. For her history of hypertension, her irbesartan was initially continued but as stated above was held on 09/23 due to the bump in creatinine. Patient will not resume the irbesartan until seeing her primary care physician for follow-up. Overall, her pressures remained relatively well controlled through the admission. For her history of anxiety and depression her home mirtazapine medication was continued. For DVT prophylaxis she received subcutaneous Lovenox during her stay. DISCHARGE MEDICATIONS: Please see below. ALLERGIES: Please see below. PHYSICAL EXAMINATION ON DISCHARGE: VITAL SIGNS: Please see below. GENERAL: Pleasant female lying upright in bed. Wearing supplement oxygen. In no significant acute distress. HEENT: Normocephalic, atraumatic. Noninjected, anicteric sclera. Chest: There is a port present in the right upper chest. NECK: There remains palpable induration of the upper neck, specifically under the jaw; making it difficult to appreciate for lymphadenopathy. CARDIOVASCULAR: Rate remains borderline tachycardic, regular rhythm. Normal S1, S2. Systolic murmur remains present. No rubs appreciated. RESPIRATORY: Patient is currently receiving supplemental oxygen in the form of 3 L nasal cannula. There is no visible accessory muscle use. Breath sounds remain somewhat diminished with decreased tidal volume. There are some bibasilar mild crackles appreciated posteriorly in the wheezes that were present on examination yesterday are quite reduced today. ABDOMINAL: Soft, nontender, nondistended. No guarding or rigidity appreciated. Normoactive bowel sounds throughout. EXTREMITIES: Bilateral lower extremity as a free pitting edema. 2+ radial pulses bilaterally. NEUROLOGICAL: No gross focal neurologic deficits appreciated. Non-dysarthric speech. PSYCHOLOGICAL: Pleasant mood. Affect appears appropriate. LABORATORY DATA: Please see below. IMAGING: Portable chest x-ray, 09/21/2020 FINDINGS: LUNGS and PLEURAL SPACE: The lungs are symmetrically expanded. Lung volumes are within normal limits. There are slightly elevated reticular/interstitial lung markings, which appears slightly greater than on the prior study. This could be secondary to mild vascular congestion/edema or interstitial infiltrate/pneumonitis. Clinical correlation is advised. No evidence of peribronchial thickening. There is no consolidation, pneumothorax, or pleural effusion. MEDIASTINUM: There is no mediastinal shift or widening. There is nodular masslike enlargement of the pulmonary pino, right appearing greater than left. This is similar to the prior exam, allowing for differences in technique. Underlying mass or lymphadenopathy cannot be excluded. CARDIAC SILHOUETTE: Cardiothoracic ratio is within normal limits. Aortic atherosclerosis noted. BONY THORAX: No acute findings are seen. OTHER: Right-sided chest port again noted. Catheter tip appears unchanged at the level of the distal SVC. IMPRESSION: Mildly elevated interstitial lung markings, differential as discussed above. Enlarged pulmonary pino as discussed above. CT chest without contrast, 09/21/2020 FINDINGS: Preliminary digital wire winding machine tender radiograph is unremarkable. There is a right-sided Aarynw-P-Awej catheter with its tip in the cyst region of the superior vena cava. There is curvilinear opacification in the right lower lobe and right middle lobe consistent with platelike atelectasis. No pleural effusion is seen. Vascular calcification is noted. There is mediastinal and right hilar adenopathy visible on this noncontrast study. This appears to be essentially unchanged from the December 06, 2019 study. There is a stable spiculated 10 mm nodular density in the right upper lobe on page 35 of 104 series 201 of today's study. There are 2 adjacent metallic fiducial markers anterior to this. There is a stable 4 mm noncalcified pleural based nodule in the left upper lobe on page 41. There is a new 8 mm noncalcified pulmonary nodule in the left lower lobe on page 67. Several of the previously noted nodular opacities on June 05, 2019 have regressed or resolved. No other new nodule is appreciated. No focal infiltrate is seen. IMPRESSION: Emphysematous changes predominately affecting the upper lobes. Fiducial markers and stable spiculated nodule right upper lobe. New 8 mm noncalcified nodule in the left lower lobe. Right lower lobe and right middle lobe platelike atelectasis changes. No pleural effusion is seen. Stable mediastinal and right hilar adenopathy. PROGNOSIS: Fair ACTIVITY: As tolerated DIET: COPD (decreased dairy) and 2 g sodium diet DISPOSITION: 01 Home, Self-Care. DISCHARGE INSTRUCTIONS & ITEMS TO FOLLOWUP ON ON OUTPATIENT: -Follow-up with primary care provider ([facility] at [facility]) within the next 3 to 5 days for post hospitalization office appointment. -Follow-up with caul fat puller physician (Dr. Will Galvez) within the next 1-2 weeks. -Complete the oral Medrol steroid Dose pack for weaning down after receiving inpatient IV steroids. Do not take home irbesartan blood pressure medication until seen by your PCP and discussion is had in the setting of elevated creatinine during this hospitalization. -Please comply with treatment plan. Should presenting symptoms recur and/or acutely worsen, please return to the emergency department. -Thank you for the opportunity to participate in your care. DISCHARGE CONDITION: Stable TIME SPENT ON DISCHARGE: 37 minutes Vital Signs/I&Os Vital Signs Date Time Temp Pulse Resp B/P (MAP) Pulse Ox O2 Delivery O2 Flow Rate FiO2 09/23/20 14:00 98.4 94 21 126/65 (85) 88 Nasal Cannula 3.0 09/21/20 08:45 40 I&O- Last 24 Hours up to 6 AM 09/23/20 06:00 Intake Total 1750 ml Output Total 1700 ml Balance 50 ml Laboratory Data Labs 24H Laboratory Tests 2 09/22/20 20:13: Bedside Glucose (Misc Panel) 180H 09/23/20 06:16: Immature Granulocyte % (Auto) 0.3, Neutrophils (%) (Auto) 70.4H, Lymphocytes (%) (Auto) 23.6L, Monocytes (%) (Auto) 5.5, Eosinophils (%) (Auto) 0.0, Basophils (%) (Auto) 0.2, Neutrophils # (Auto) 4.1, Lymphocytes # (Auto) 1.4L, Monocytes # (Auto) 0.3, Eosinophils # (Auto) 0.0, Basophils # (Auto) 0.0, Nucleated Red Blood Cells % (auto) 0.0, Anion Gap 2L, Glomerular Filtration Rate 43.2L, Calcium Level 8.4L 09/23/20 11:41: Bedside Glucose (Misc Panel) 151H 09/23/20 14:44: Lab Scanned Report Miscellaneous Lab 09/23/20 14:48: Anion Gap 4L, Glomerular Filtration Rate 44.4L, Calcium Level 8.1L CBC/BMP Laboratory Tests 09/23/20 06:16 09/23/20 14:48 FSBS Laboratory Tests Test 09/22/20 20:13 09/23/20 11:41 Range/Units Bedside Glucose (Misc Panel) 180 151 80-115 MG/DL Microbiology Microbiology 09/21/20 Blood Culture - Preliminary, Resulted No Growth after 48 hours. All Specime... 09/21/20 Blood Culture - Preliminary, Resulted No Growth after 48 hours. All Specime... 09/21/20 Respiratory Virus Panel (PCR) ([facility]) - Final, Complete Human Rhinovirus/Enterovirus Discharge Medications Scheduled Esomeprazole Magnesium (Esomeprazole Magnesium) 40 Mg Cap, 40 MG PO QPM, (Reported) Methylprednisolone (Medrol) 4 Mg Tablet, 4 MG PO ASDIRECTED Mirtazapine (Remeron) 30 Mg Tablet, 30 MG PO BID, (Reported) Pravastatin Sodium (Pravastatin Sodium) 20 Mg Tablet, 20 MG PO QPM, (Reported) Tiotropium Br/Olodaterol HCl (Stiolto Respimat Inhal [place]) 1 Aer Aer, 2 PUFFS INH DAILY, (Reported) Zolpidem Tartrate (Ambien) 10 Mg Tablet, 10 MG PO QHS, (Reported) Scheduled PRN Acetaminophen (Acetaminophen 8 Hour) 650 Mg Tablet.er, 650 MG PO DAILYPRN PRN for PAIN, (Reported) Hydroxyzine HCl (Hydroxyzine HCl) 25 Mg Tablet, 25 MG PO BID PRN for ANXIETY, (Reported) Ipratropium/Albuterol Sulfate (Combivent Respimat 20-100 Mcg) 1 Aer Aer, 1 PUFF INH QID PRN for SHORTNESS OF BREATH, (Reported) Allergies Coded Allergies: prednisone (Verified Allergy, Severe, JOINT PAIN, DIFFICULTY BREATHING, 02/14/19) Penicillins (Verified Allergy, Intermediate, HIVES, VOMIT, 02/14/19) Sulfa (Sulfonamide Antibiotics) (Verified Allergy, Intermediate, HIVES, VOMIT, 02/14/19) GME ATTESTATION GME ATTESTATION My faculty preceptor for this patient encounter was physically present during the encounter and was fully available. All aspects of the patient interview, examination, medical decision making process, and medical care plan development were reviewed and approved by the faculty preceptor. The faculty preceptor is aware and concurs with the plan as stated in the body of this note and will attest to such by his/her cosignature. ATTENDING NOTE I, Kellee Bradshaw, have independently examined this patient and performed my own physical exam, as well as reviewed the documentation and edited where necessary. I have discussed in detail with the resident / student the findings and plan of treatment as documented by the resident / student and edited their note. I agree with their findings and treatment plan and have edited their documentation. I will continue to follow the patient during this hospital stay. Time spent on discharge 37 minutes PRATEEK JENA D.O. Sep 23, 2020 19:22 KELLEE BRADSHAW MD Sep 23, 2020 21:22
== END 2020-09-23 16:30 | disposition home or self-care (01) | DRG 189 ==
LOC: M ED 02:26 → M ED INP 05:16 → ENRESERV 07:53 → M ICU 09:14 → M MSPAV 09-22 17:23
PROVIDERS: ADMIT Internal Medicine; ATTEND Internal Medicine
DX: J96.01 Acute respiratory failure with hypoxia (principal); E87.1 Hypo-osmolality and hyponatremia; J44.1 Chronic obstructive pulmonary disease with (acute) exacerbation; F17.210 Nicotine dependence, cigarettes, uncomplicated; Z99.81 Dependence on supplemental oxygen; F32.9 Major depressive disorder, single episode, unspecified; F41.9 Anxiety disorder, unspecified; M85.88 Other specified disorders of bone density and structure, other site; B34.8 Other viral infections of unspecified site; D64.9 Anemia, unspecified; I10 Essential (primary) hypertension; Z79.899 Other long term (current) drug therapy; Z88.0 Allergy status to penicillin; Z88.2 Allergy status to sulfonamides; Z88.8 Allergy status to other drugs, medicaments and biological substances; Z92.3 Personal history of irradiation; Z85.21 Personal history of malignant neoplasm of larynx; Z85.810 Personal history of malignant neoplasm of tongue; E11.9 Type 2 diabetes mellitus without complications; Z79.84 Long term (current) use of oral hypoglycemic drugs; Z20.822 Contact with and (suspected) exposure to COVID-19

== ENCOUNTER → 2020-11-05 | Outpatient (CLI) | payer MEDICARE ==
[~2020-11-05] MED LIST changes: +HYDR-3363 PO; +LEVO500T3 PO; +MEDR4TAB PO; +MIRT-60 PO; +PRAV20TA2 PO
[2020-11-05 13:59] LABS: FREE T4 1.22 NG/DL (0.76-1.46); THYROID STIMULATING HORMONE 1.01 uIU/ML (0.358-3.740)
== END ==
LOC: M LAB 12:38
PROVIDERS: ATTEND Nurse Practitioner Family
DX: E05.80 Other thyrotoxicosis without thyrotoxic crisis or storm (principal)

== ENCOUNTER → 2020-11-05 | Outpatient (CLI) | payer MEDICARE ==
[2020-11-05 13:21] LABS: BASO % 0.6 % (0.0-1.0); EOS # 0.1 10^3/uL (0.0-0.5); EOS % 1.7 % (0.0-3.0); HEMOGLOBIN 13.5 g/dl (12.0-15.5); LYMPH # 1.8 10^3/uL (1.5-5.0); LYMPH % 34.4 % (24.0-44.0); MEAN CORPUSCULAR HEMOGLOBIN 25.4 pg (27.0-33.0); MEAN CORPUSCULAR HGB CONC 29.3 g/dl (32.0-36.5); MEAN CORPUSCULAR VOLUME 86.5 fl (80.0-96.0); MONO # 0.4 10^3/uL (0.0-0.8); MONO % 7.3 % (2.0-8.0); PLATELET COUNT, AUTOMATED 186 10^3/uL (150-450); RED BLOOD COUNT 5.32 10^6/uL (4.00-5.40); WHITE BLOOD COUNT 5.4 10^3/uL (4.0-10.0)
[2020-11-05 13:58] LABS: ALBUMIN 3.5 GM/DL (3.2-5.2); ALT/SGPT 15 U/L (12-78); BILIRUBIN,TOTAL 0.3 MG/DL (0.2-1.0); BLOOD UREA NITROGEN 22 MG/DL (7-18); CALCIUM LEVEL 8.7 MG/DL (8.8-10.2); CARBON DIOXIDE LEVEL 36 MEQ/L (21-32); CHLORIDE LEVEL 100 MEQ/L (98-107); CHOLESTEROL LEVEL 212 MG/DL (<200); CHOLESTEROL RISK RATIO 4.076 (<5); CREATININE FOR GFR 0.93 MG/DL (0.55-1.30); GLOMERULAR FILTRATION RATE > 60.0 (>45); GLUCOSE, FASTING 105 MG/DL (70-100); HDL CHOLESTEROL 52 MG/DL (>40); LDL CHOLESTEROL 145 MG/DL (<100); NON-HDL-C 160 MG/DL; POTASSIUM SERUM 4.8 MEQ/L (3.5-5.1); SODIUM LEVEL 140 MEQ/L (136-145); THYROID STIMULATING HORMONE 0.927 uIU/ML (0.358-3.740); TOTAL PROTEIN 6.6 GM/DL (6.4-8.2); TRIGLYCERIDES LEVEL 73 MG/DL (<150)
== END ==
LOC: M LAB 12:35
PROVIDERS: ATTEND Nurse Practitioner Family
DX: Z00.01 Encounter for general adult medical examination with abnormal findings (principal); E11.65 Type 2 diabetes mellitus with hyperglycemia; C13.1 Malignant neoplasm of aryepiglottic fold, hypopharyngeal aspect; E03.9 Hypothyroidism, unspecified; D35.01 Benign neoplasm of right adrenal gland; E06.4 Drug-induced thyroiditis; Z79.899 Other long term (current) drug therapy; E05.80 Other thyrotoxicosis without thyrotoxic crisis or storm

== ENCOUNTER → 2020-12-29 | Outpatient (CLI) | payer MEDICARE ==
[~2020-12-29] MED LIST changes: +BUDE0.5S6 PO; +DOXY-443 PO; +IRON27TA2 PO; +LASI20TA3 PO; -LEVO250T12 PO; +LEVO250T3 PO; -LEVO500T3 PO; +LEVO500T4 PO; +MOXI400T11 PO; -PROC10TA4 PO; +PROC10TA5 PO
== END ==
LOC: M RAD 11:13
PROVIDERS: ATTEND Internal Medicine Pulmonary Disease
DX: R91.8 Other nonspecific abnormal finding of lung field (principal); R59.0 Localized enlarged lymph nodes

== ENCOUNTER 2021-01-04 15:57 | Emergency (ER) | payer MEDICARE ==
[~2021-01-04] VITALS: Ht 167.6 cm; Wt 65.5 kg
[~2021-01-04 15:57] MED LIST changes: -BUDE0.5S6 PO; -DOXY-443 PO; -IRON27TA2 PO; -LASI20TA3 PO; +LEVO250T12 PO; -LEVO250T3 PO; +LEVO500T3 PO; -LEVO500T4 PO; -MOXI400T11 PO; +PROC10TA4 PO; -PROC10TA5 PO
[2021-01-04] MEDS ORDERED: BUDE0.5S6 (16:10)
--- NOTE | 2021-01-04 17:59 | REP ---
INDICATION: DYSPNEA/COUGH. COMPARISON: 09/21/2020 the latest prior also portable TECHNIQUE: Portable FINDINGS: The technique utilized in obtaining the radiograph has magnified the cardiac silhouette and accentuated the interstitial markings. The cardiomediastinal silhouette is unchanged. The right-sided MediPort device is unchanged the tip remains in the superior vena cava. Once again, the interstitial markings are increased and accentuated by technique status quo. There is evidence of pulmonary arterial enlargement extension weighted by technique status quo. Subtle right basilar opacities seem to have developed with slight right CP angle blunting. IMPRESSION: New right lower lobe opacities and CP angle blunting as described above possibly reflecting pneumonia and a small pleural effusion. Other chronic changes as described above. Mild interstitial edema superimposed upon chronic changes cannot be ruled out. <Electronically signed by Urbano Post > 01/04/21 [id number]
[2021-01-04 18:04] LABS: BASO % 0.6 % (0.0-1.0); EOS # 0.1 10^3/uL (0.0-0.5); EOS % 1.3 % (0.0-3.0); HEMATOCRIT 36.7 % (36.0-47.0); LYMPH # 1.7 10^3/uL (1.5-5.0); LYMPH % 36.1 % (24.0-44.0); MEAN CORPUSCULAR HEMOGLOBIN 25.3 pg (27.0-33.0); MEAN CORPUSCULAR VOLUME 84.6 fl (80.0-96.0); MONO # 0.4 10^3/uL (0.0-0.8); MONO % 8.6 % (2.0-8.0); NEUTROPHILS # 2.5 10^3/uL (1.5-8.5); NEUTROPHILS % 53.2 % (36.0-66.0); PLATELET COUNT, AUTOMATED 238 10^3/uL (150-450); RED BLOOD COUNT 4.34 10^6/uL (4.00-5.40); WHITE BLOOD COUNT 4.7 10^3/uL (4.0-10.0)
[2021-01-04 18:32] LABS: ALBUMIN 2.8 GM/DL (3.2-5.2); ALT/SGPT 37 U/L (12-78); BILIRUBIN,DIRECT 0.1 MG/DL (0.0-0.2); BILIRUBIN,TOTAL 0.4 MG/DL (0.2-1.0); BLOOD UREA NITROGEN 29 MG/DL (7-18); CARBON DIOXIDE LEVEL 36 MEQ/L (21-32); CHLORIDE LEVEL 98 MEQ/L (98-107); CK-MB VALUE MASS 2.1 NG/ML (<3.6); CPK CREATINE PHOSPHOKINASE 26 U/L (26-192); CREATININE FOR GFR 1.14 MG/DL (0.55-1.30); GLOMERULAR FILTRATION RATE 50.8 (>45); GLUCOSE, FASTING 100 MG/DL (70-100); MB/CK RELATIVE INDEX 8.08 (< OR =4); POTASSIUM SERUM 4.5 MEQ/L (3.5-5.1); SODIUM LEVEL 135 MEQ/L (136-145); TOTAL PROTEIN 6.3 GM/DL (6.4-8.2); TROPONIN I < 0.02 NG/ML (< 0.10)
[2021-01-04 19:30] VITALS: BP 146/102
[2021-01-04] MEDS ORDERED: DOXY1CAP62 PO (19:31)
[2021-01-04] MEDS ORDERED: AZIT500T5 PO (19:31)
[2021-01-04] MEDS ORDERED: DOXYCYCLINE HYCLATE 100MG TABLET PO ONE (19:35)
[2021-01-04] MEDS ORDERED: SODIUM CHLORIDE 0.9% INJ 10 ML SYR IV PRN (19:50)
--- NOTE | 2021-01-05 05:58 | ECGEPIP ---
[facility] - ED Test Date: 2021-01-04 Pat Name: SONA MARTINEZ Department: Room: - Gender: Female Internal Corrosion Specialist: SUZANNE : [id number] Requested By: MAEGAN Sarabia Order Number: [id number] Reading MD: Chalo Garcia Measurements Intervals [place] Rate: 81 P: 52 ME: 134 QRS: 57 QRSD: 72 T: 31 QT: 346 QTc: 401 Interpretive Statements Normal sinus rhythm NONSPECIFIC T WAVE ABNORMALITY(S) SIMILAR TO 09/21/20 Electronically Signed on 01-05-2021 5:57:36 EDT by Chalo Garcia
[2021-01-05] MEDS ORDERED: SODIUM CHLORIDE 0.9% INJ 10 ML SYR IV SCH (09:00)
== END 2021-01-04 20:29 | disposition home or self-care (01) ==
LOC: M ED 15:57
DX: J18.9 Pneumonia, unspecified organism (principal); J44.9 Chronic obstructive pulmonary disease, unspecified; I10 Essential (primary) hypertension; K21.9 Gastro-esophageal reflux disease without esophagitis; E78.5 Hyperlipidemia, unspecified; F32.9 Major depressive disorder, single episode, unspecified; Z95.5 Presence of coronary angioplasty implant and graft; Z79.899 Other long term (current) drug therapy; Z88.0 Allergy status to penicillin; Z88.2 Allergy status to sulfonamides; Z88.8 Allergy status to other drugs, medicaments and biological substances
CPT/HCPCS: 71045; 80048; 80076; 82550; 82553; 84484; 85025; 93005; 93041; 94760; 99284; J1642

== ENCOUNTER → 2021-01-30 | Outpatient (CLI) | payer MEDICARE ==
[~2021-01-30] MED LIST changes: +BUDE0.5S6; +DOXY-443 PO
== END ==
LOC: M LABSMTC 10:19
PROVIDERS: ATTEND Anesthesiology
DX: Z01.812 Encounter for preprocedural laboratory examination (principal); Z20.822 Contact with and (suspected) exposure to COVID-19

== ENCOUNTER 2021-02-06 16:45 | Inpatient (IN) | payer MEDICARE ==
[~2021-02-06] VITALS: Ht 167.6 cm; Wt 70.3 kg
[~2021-02-06 16:45] MED LIST changes: -BUDE0.5S6; +BUDE0.5S6 PO
--- OUTSIDE RECORDS SUMMARY | 2021-02-06 16:53 | CCD | Continuity of Care Document ---
Author Author Francois [facility] Organization Unknown Address [address] [place] [address] [address] [place] [address] Phone [phone] Care Team Providers Care Traffic Control Officer Name Role Phone Will Galvez AUTM Unavailable [facility] Physical Therapy AUTM [phone] [facility] AUTM [phone] Maty Menon CAMPGROUND CLEANING ATTENDANT AUTM [phone] Problems Active Problems Provider Date Type II diabetes mellitus uncontrolled SILVIANO Matute, P PROFESSIONAL EMPLOYER CONSULTANT Onset: 02/13/2020 Essential hypertension SILVIANO Matute, PNP Onset: 2019 Thyroiditis SILVIANO Matute, PNP Onset: 0 Thyrotoxicosis SILVIANO Matute, PNP Onset: 0 Benign neoplasm of adrenal gland SILVIANO Matute, PNP Ons et: 02/13/2020 Lymphedema SILVIANO Mattue, PNP Onset: 0 Insomnia SILVIANO Matute, PNP Onset: 0 Iatrogenic thyroiditis SILVIANO Matute, PNP Onset: 2019 Taking medication SILVIANO Matute, PNP Onset: 0 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 SILVIANO Matute, PNP Onset: 02/13/2020 Nicotine dependence, cigarettes, with other nicotine-i nduced disorders SILVIANO Matute, PNP Onset: 02/13/2020 Moderate recurrent major depression SILVIANO Matute, PNP Onset: 02/13/2020 Overlapping malignant neoplasm of larynx SILVIANO Matute, PNP Onset: 02/13/2020 Neoplasm of uncertain behavior of skin SILVIANO Matute, P PROFESSIONAL EMPLOYER CONSULTANT Onset: 02/13/2020 Solitary nodule of lung SILVIANO Matute, PNP Onset: 02/12 Anxiety state SILVIANO Matute, HERMELINDA Onset: 0 Social History Type Date Description Comments Sex Unknown Tobacco Use Start: Unknown Current Cigarette Smoker 1/2 Pac k Daily Tobacco Use Start: Unknown Never Smoked Cigars Pipe Negative For Never Smoked A Pipe Tobacco Use Start: Unknown Never Used Smokeless Tobacco ETOH Use Denies alcohol use Tobacco Use Start: Unknown Patient is a current smoker, smo kes every day Recreational Drug Use Denies Drug Use Allergies, Adverse Reactions, Alerts Active Allergies Criticality Reaction | Severity Comments Date Penicillins Unable to assess criticality Anaphylaxis | Severe 01/05/2018 Clarithromycin Unable to assess criticality 07/07/2020 Sulfa Antibiotics Unable to assess criticality Nausea and Vomiting | Moderate 01/05/2018 Cefuroxime Unable to assess criticality 07/07/2020 Prednisone Unable to assess criticality 03/28/2018 Medications Active Medications SIG Qnty Indications Ordering Provide r Date Hydroxyzine HCL 25mg Tablets take 1 tab by mouth tiwce a day as needed for anxiety 60tabs Rodolfo Garsia MD 09/09/2020 Pravastatin Sodium 20mg Tablets 1 by mouth every night 90tabs SILVIANO Matute, PNP 05/15/19 21 Zolpidem Tartrate 10mg Tablets 1 by mouth at bedtime 30tabs G47.00 Rodolfo Garsia MD 02/09/2019 Mirtazapine 30mg Tablets 1 by mouth twice a day 60tabs Rodolfo Garsia MD 01/09/2019 Esomeprazole Magnesium 40mg Capsul es DR 1 by mouth every day 90caps Rodolfo Garsia MD 8 Metformin HCL 1000mg Tablets 1 tab by mouth every day 90tabs Rodolfo Garsia MD Stiolto Respimat 2.5-2.5mcg/Act Ae rosol 2 puffs once daily 12gm SILVIANO Matute, PNP 000 Combivent Respimat 20-100mcg/Act A erosol inhale 1 puff by mouth every 4-6 hours if needed 12gm CHIRAG MatuteBC, PNP Oxygen 2L at bedtime-Marras Unknown Methimazole 10mg Tablets Take One Tablet By Mouth Every Day Unknown Immunizations Description No Information Available Vital Signs Date Vital Result Comment 12/08/2020 3:27pm BP Systolic 142 mmHg BP Diastolic 86 mmHg Heart Rate 89 /min Body Temperature 97.2 F Respiratory Rate 16 /min O2 % BldC Oximetry 95 % Weight 134.12 lb Weight 60.839 kg Height 66 inches 5'6" BMI (Body Mass Index) 21.6 kg/m2 BSA (Body Surface Area) 1.69 m2 09/09/2020 1:03pm BP Systolic 130 mmHg BP Diastolic 70 mmHg Heart Rate 90 /min Body Temperature 98.4 F Respiratory Rate 18 /min O2 % BldC Oximetry 93 % on 3L oxygen Weight 133.00 lb Weight 60.329 kg Height 66 inches 5'6" BMI (Body Mass Index) 21.5 kg/m2 BSA (Body Surface Area) 1.68 m2 Results Test Acquired Date Facility Test Result H/L Range Note CBC With Differential 11/05/2020 [facility] White Blood Count 5.4 10 Normal 4.0-10.0 Red Blood Count 5.32 10 Normal 4.00-5.40 Hemoglobin 13.5 g/dL Normal 12.0-15.5 Hematocrit 46.0 % Normal 36.0-47.0 Mean Corpuscular Volume 86.5 fl Normal 80.0-96.0 Mean Corpuscular Hemoglobin 25.4 pg Low 27.0-33.0 Mean Corpuscular HGB Conc 29.3 g/dL Low 32.0-36.5 Red Cell Distribution Width 15.4 % High 11.5-14.5 Platelet Count, Automated 186 10 Normal 150-450 Neutrophils % 56.0 % Normal 36.0-66.0 Lymph % 34.4 % Normal 24.0-44.0 Dade % 7.3 % Normal 2.0-8.0 Eos % 1.7 % Normal 0.0-3.0 Baso % 0.6 % Normal 0.0-1.0 Immature Granulocyte % 0.0 % Normal 0-3.0 Nucleated Red Blood Cell % 0.0 % Normal 0-0 Neutrophils # 3.0 10 Normal 1.5-8.5 Lymph # 1.8 10 Normal 1.5-5.0 Dade # 0.4 10 Normal 0.0-0.8 Eos # 0.1 10 Normal 0.0-0.5 Baso # 0.0 10 Normal 0.0-0.2 Hemoglobin A1c 11/05/2020 [facility] Hemoglobin A1c 6.0 % Normal 1 Estimated Average Glucose 126 mg/dL High 60-110 Comprehensive Metabolic Profil 11/05/2020 [facility] Glucose, Fasting 105 mg/dL High 70-100 Blood Urea Nitrogen 22 mg/dL High 7-18 Creatinine For GFR 0.93 mg/dL Normal 0.55-1.30 Glomerular Filtration Rate > 60.0 Normal >45 2 Sodium Level 140 mEq/L Normal 136-145 Potassium Serum 4.8 mEq/L Normal 3.5-5.1 Chloride Level 100 mEq/L Normal 98-107 Carbon Dioxide Level 36 mEq/L High 21-32 Anion Gap 4 mEq/L Low 8-16 Calcium Level 8.7 mg/dL Low 8.8-10.2 Ast/Sgot 5 U/L Low 7-37 Alt/SGPT 15 U/L Normal 12-78 Alkaline Phosphatase 110 U/L Normal 45-117 Bilirubin,Total 0.3 mg/dL Normal 0.2-1.0 Total Protein 6.6 GM/DL Normal 6.4-8.2 Albumin 3.5 GM/DL Normal 3.2-5.2 Albumin/Globulin Ratio 1.1 Low 1.2-2.2 Lipid Panel 11/05/2020 [facility] Triglycerides Level 73 mg/dL Normal <150 Cholesterol Level 212 mg/dL High <200 HDL Cholesterol 52 mg/dL Normal >40 LDL Cholesterol 145 mg/dL High <100 Non-HDL-C 160 mg/dL Normal Cholesterol Risk Ratio 4.076 Normal <5 Laboratory test finding 11/05/2020 [facility] Thyroid Stimulating Hormone 0.927 uIU/ML Normal 0.358-3.740 FT4&TSH Panel 11/05/2020 [facility] Thyroid Stimulating Hormone 1.010 uIU/ML Normal 0.358-3.740 Free T4 1.22 ng/dL Normal 0.76-1.46 CBC With Differential 07/03/2020 [facility] White Blood Count 5.9 10 Normal 4.0-10.0 Red Blood Count 4.92 10 Normal 4.00-5.40 Hemoglobin 12.6 g/dL Normal 12.0-15.5 Hematocrit 40.6 % Normal 36.0-47.0 Mean Corpuscular Volume 82.5 fl Normal 80.0-96.0 Mean Corpuscular Hemoglobin 25.6 pg Low 27.0-33.0 Mean Corpuscular HGB Conc 31.0 g/dL Low 32.0-36.5 Red Cell Distribution Width 14.6 % High 11.5-14.5 Platelet Count, Automated 208 10 Normal 150-450 Neutrophils % 55.0 % Normal 36.0-66.0 Lymph % 37.0 % Normal 24.0-44.0 Dade % 6.3 % Normal 2.0-8.0 Eos % 1.2 % Normal 0.0-3.0 Baso % 0.3 % Normal 0.0-1.0 Immature Granulocyte % 0.2 % Normal 0-3.0 Nucleated Red Blood Cell % 0.0 % Normal 0-0 Neutrophils # 3.3 10 Normal 1.5-8.5 Lymph # 2.2 10 Normal 1.5-5.0 Dade # 0.4 10 Normal 0.0-0.8 Eos # 0.1 10 Normal 0.0-0.5 Baso # 0.0 10 Normal 0.0-0.2 Comprehensive Metabolic Profil 07/03/2020 [facility] Glucose, Fasting 137 mg/dL High 70-100 Blood Urea Nitrogen 21 mg/dL High 7-18 Creatinine For GFR 1.07 mg/dL Normal 0.55-1.30 Glomerular Filtration Rate 54.8 Normal >45 3 Sodium Level 133 mEq/L Low 136-145 Potassium Serum 4.1 mEq/L Normal 3.5-5.1 Chloride Level 98 mEq/L Normal 98-107 Carbon Dioxide Level 33 mEq/L High 21-32 Anion Gap 2 mEq/L Low 8-16 Calcium Level 8.4 mg/dL Low 8.8-10.2 Ast/Sgot 5 U/L Low 7-37 Alt/SGPT 8 U/L Low 12-78 Alkaline Phosphatase 114 U/L Normal 45-117 Bilirubin,Total 0.2 mg/dL Normal 0.2-1.0 Total Protein 6.7 GM/DL Normal 6.4-8.2 Albumin 3.3 GM/DL Normal 3.2-5.2 Albumin/Globulin Ratio 1.0 Low 1.2-2.2 1 REFERENCE RANGES: <=5.6% NORMAL 5.7-6.4% SUGGESTS IMPAIRED GLUCOSE META BOLISM/PREDIABETIC >= 6.5% ABNORMAL 2 Units are mL/min/1.73 m2 Chronic Kidney Disease Staging per NKF: Stage I & II GFR >=60 Normal to Mildly Decreased Stage III GFR 30-59 Moderately Decreased Stage IV GFR 15-29 Severely Decreased Stage V GFR <15 Very Little GFR Left ESRD GFR <15 on TISSUE INSERTER 3 Units are mL/min/1.73 m2 Chronic Kidney Disease Staging per NKF: Stage I & II GFR >=60 Normal to Mildly Decreased Stage III GFR 30-59 Moderately Decreased Stage IV GFR 15-29 Severely Decreased Stage V GFR <15 Very Little GFR Left ESRD GFR <15 on TISSUE INSERTER Procedures Date Code Description Status 12/08/2020 28933 Office/Outpatient Established Mo d MDM 30-39 Min Completed 09/09/2020 40540 Office/Outpatient Established Mo d MDM 30-39 Min Completed 07/10/2020 24107 Office/Outpatient Established Mo d MDM 30-39 Min Completed Medical Devices Description No Information Available Encounters Type Date Location Provider Dx Diagnosis Office Visit 12/08/2020 3:20p [facility] THERESA Iyer F41.9 Anxiety disorder, unspecified F33.1 Major depressive disorder, r ecurrent, moderate E11.65 Type 2 diabetes mellitus wit h hyperglycemia I10 Essential (primary) hyperten razia E06.9 Thyroiditis, unspecified E78.00 Pure hypercholesterolemia, u nspecified 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, hypopharyngeal aspect Z79.899 Other slabber (current) dr gallego therapy Z13.220 Encounter for screening for lipoid disorders Assessments Date Code Description Provider 12/08/2020 F41.9 Anxiety disorder, unspecified Ka jorje Menon, THERESA 12/08/2020 F33.1 Major depressive disorder, recur rent, moderate THERESA Varner 12/08/2020 E11.65 Type 2 diabetes mellitus with hy perglycemia THERESA Varner 12/08/2020 I10 Essential (primary) hypertension Maty Nevills, CAMPGROUND CLEANING ATTENDANT 12/08/2020 E06.9 Thyroiditis, unspecified Maty N evills, CAMPGROUND CLEANING ATTENDANT 12/08/2020 E78.00 Pure hypercholesterolemia, unspe cified Maty Nevills, CAMPGROUND CLEANING ATTENDANT 12/08/2020 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, hypopharyngeal aspect Maty Nevills, CAMPGROUND CLEANING ATTENDANT 12/08/2020 Z79.899 Other alf (current) drug t herapy Maty Nevills, CAMPGROUND CLEANING ATTENDANT 12/08/2020 Z13.220 Encounter for screening for lipo id disorders Maty Nevills, CAMPGROUND CLEANING ATTENDANT 09/09/2020 F41.9 Anxiety disorder, unspecified Ka jorje Nevills, CAMPGROUND CLEANING ATTENDANT 09/09/2020 F33.1 Major depressive disorder, recur rent, moderate Maty Nevills, CAMPGROUND CLEANING ATTENDANT 09/09/2020 E11.65 Type 2 diabetes mellitus with hy perglycemia Maty Nevills, CAMPGROUND CLEANING ATTENDANT 09/09/2020 I10 Essential (primary) hypertension Maty Nevills, CAMPGROUND CLEANING ATTENDANT 09/09/2020 E06.9 Thyroiditis, unspecified Maty N evills, CAMPGROUND CLEANING ATTENDANT 09/09/2020 E78.00 Pure hypercholesterolemia, unspe cified Maty Nevills, CAMPGROUND CLEANING ATTENDANT 09/09/2020 Z79.899 Other alf (current) drug t herapy Maty Nevills, CAMPGROUND CLEANING ATTENDANT 07/10/2020 Z01.818 Encounter for other preprocedura l examination SILVIANO Matute, PNP 07/10/2020 Z98.42 Cataract extraction status, left eye SILVIANO Matute, PNP 07/10/2020 E11.65 Type 2 diabetes mellitus with hy perglycemia CHIRAG Matute, PNP 07/10/2020 I10 Essential (primary) hypertension SILVIANO Matute, PNP 07/10/2020 E06.9 Thyroiditis, unspecified SILVIANO Real, PNP 07/10/2020 E78.00 Pure hypercholesterolemia, unspe cified SILVIANO Matute, PNP 07/10/2020 Z98.41 Cataract extraction status, righ t eye SILVIANO Matute, PNP Plan of Treatment Future Appointment(s):* 04/29/2021 1:00 pm - THERESA Varner at [facility] 12/08/2020 - THERESA Varner* F41.9 Anxiety disorder, unspecified* Comments: * The patient is relatively doing well on current regimen without any adverse effects, will continue the same. We will continue to monitor. * F33.1 Major depressive disorder, recurrent, moderate* Comments:* Patient denies depression at this time.Condition reviewed in detail, stable at present without any medications. Will continue with her medication regimen with H ydroxyzine and Mirtazapine for anxiety. * E11.65 Type 2 diabetes mellitus with hyperglycemia* New Labs:* Thyroid Stimulating Hormone, Scheduled: 04/27/21 * Comments:* Her laboratory reports from [facility] dated 11/05/20 were reviewed in detail.Fasting glucose high at 105 with an A1c at 6.The patient was advised to continue with her current medication regimen. She will benefit from maintaining a diabetic diet and a regular exercise regimen. We will continue to monitor. * Follow up:* FU in 6 months, fasting labs a week prior. * I10 Essential (primary) hypertension* New Labs:* Comprehensive Metabolic Profil, Scheduled: 04/27/21 * Comments:* JNC8 Guidelines - Pt white female > 60 To continue the prescribed ARB. BP is at goal, 142/86Continue current treatment and monitor. She will benefit from maintaining a low sodium diet. * E06.9 Thyroiditis, unspecified* New Labs:* Hemoglobin A1c, Scheduled: 04/27/21 * Comments:* Currently stable.To continue current medication and plan of care.We will continue to monitor. * E78.00 Pure hypercholesterolemia, unspecified* Comments:* Her laboratory reports from [facility] dated 11/05/20 were reviewed in detail. Lipid panel showed:CHOL high at 212.TRG at 73.HDL at 52.LDL high at 145She will continue with her current regimen. She was encouraged to maintain a low cholesterol diet and a regular exercise regimen. We will continue to monitor. * Follow up:* FU in 6 months, fasting labs a week prior. 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 She was noted to have new 8 mm nodule on left upper lobe on chest CT and x-ray on 09/21/20. She will have another CT next month for surveillance. No clinical evidence of relapse of laryngeal carcinoma. To FU in [address] is normal or immediate with any abnormal findings. * Z79.899 Other slabber (current) drug therapy* New Labs:* CBC With Differential, Scheduled: 04/27/21 * Comments:* Patient to continue to follow the current plan of care and to look for any new or worsening symptoms. We will continue to monitor through periodic blood work. * Follow up:* FU in 6 months, fasting labs a week prior. * Z13.220 Encounter for screening for lipoid disorders* New Labs:* Lipid Panel, Scheduled: 04/27/21 * Comments:* To have the routine labs done to evaluate further.Further plans to follow the lab results.We will continue to monitor. Functional Status Description No Information Available Mental Status Description No Information Available Referrals Description No Information Available
--- OUTSIDE RECORDS SUMMARY | 2021-02-06 16:53 | CCD | Continuity of Care Document ---
Author Author Francois [facility] Organization [place] [address] Phone [phone] Care Team Providers Care Client Delivery Manager Name Role Phone Elsie Kim AUTM [phone] Maty Menon AUTM [phone] Problems Active Problems Provider Date Chronic obstructive lung disease May Vega Onset: 10/31/2013 Cough Marie Rebolledo M.D. Onset: Difficulty breathing Marie Rebolledo M.D. Onset: Posterior rhinorrhea Marie Rebolledo M.D. Onset: Tobacco user Marie Rebolledo M.D. Onset: Body mass index 25-29 - overweight Marie Rebolledo M.D. Onset: 10/31/2013 Acute upper respiratory infection Bev Vega Onset: 04/01/2014 Acute bronchitis Marie Rebolledo M.D. Onset: Panacinar emphysema Will Dunham D.O. Onset: 12/09/2016 Nicotine dependence, cigarettes, with other nicotine-i nduced disorders Will Dunham D.O. Onset: 12/09/2016 Abnormal findings on diagnostic imaging of lung Will Dunham D.O. Onset: 12/09/2016 Chronic hypoxemic respiratory failure Will Dunham D.O. On set: 12/09/2016 Candidiasis of mouth Will Dunham D.O. Onset: 06/21/2017 Sleep apnea Marie Rebolledo M.D. Onset: 10/2017 Disturbance of consciousness Marie Rebolledo M.D. O nset: 09/15/2017 Jaw pain Will Dunham D.O. Onset: 03/21/2018 Pleural effusion, not elsewhere classified Will Dunham D.O. Onset: 04/06/2018 Otalgia Sushil Cantu MD Onset: 04/10/2018 Neoplasm of uncertain behavior of lip, oral cavity and pharynx Sushil Cantu MD Onset: 04/10/2018 Malignant tumor of supraglottis Sushil Cantu MD Onset: 0 07/03/2018 Acute and chronic respiratory failure with hypercapnia Ericka Aguilar M.D. Onset: 07/03/2018 Pneumonia due to other streptococci Ericka Vann M.D. Ons et: 07/03/2018 Hemoptysis Ericka Vann M.D. Onset: 07/03/2018 Post-inflammatory pulmonary fibrosis Sushil Cantu MD Ons et: 12/12/2018 Chronic rhinitis Sushil Cantu MD Onset: 12/12/2018 Acute maxillary sinusitis Will Dunham D.O. Onset: 020 Social History Type Date Description Comments Sex Unknown Cigarette Use Pack Years - 54 ETOH Use Denies alcohol use Recreational Drug Use Denies Drug Use Tobacco Use Start: 04/11/70 Patient is a current smoker, smo kes every day 1/2 ppd currently hx1 PPD FOR 47 YEARS Smoking Status Reviewed: 10/02/20 Patient is a current smoker, smokes every day 1/2 ppd currently hx1 PPD FOR 47 YEARS Allergies and adverse reactions Active Allergies Criticality Reaction | Severity Comments Date Penicillin Unable to assess criticality Hives 08/27/2009 Ceftin Unable to assess criticality 08/27/2009 Biaxin Unable to assess criticality 08/27/2009 Sulfa Unable to assess criticality Hives 07/25/2018 Prednisone Unable to assess criticality joint pain, sob 11/09/2018 Medications Active Medications SIG Qnty Indications Ordering Provide r Date Budesonide 0.5mg/2ML Suspension inhale twice a day with neb dx j48.112 120ml R91.8 Will Dunham D.O. 10/02/2020 Stiolto Respimat 2.5-2.5mcg/Act Ae rosol 2 puffs once daily Will Dunham D.O. 09/17/2020 Combivent Respimat 20-100mcg/Act A erosol 1 puff four times a day as needed Unknown Esomeprazole Magnesium 40mg Capsul es DR 1 by mouth every day Unknown Oxygen 3L continuous [facility] Unknown Mirtazapine 30mg Tablets 1 by mouth every day Unknown Zolpidem Tartrate 10mg Tablets Take One Tablet By Mouth AT Bedtime Maximum Daily Dose One Tablet Unknown Pravastatin Sodium 20mg Tablets 1 tab by mouth every day elsie kim History Medications Nystatin 180451Tdqu/ML Suspension 5 milliliters swish and swallow 4 times a day x 7 days 140units Will Dunham D.O. 11/12/2020 - 01/07/2021 Albuterol Sulfate (2 .5mg/3ML) 0.083% Nebulizer 1 vial four times a day as needed 360ml J43.1 Will fountain D.O. 09/17/2020 - 04/11/2020 Medications Administered in Office Medication SIG Qnty Indications Ordering Provider Date Covid-19 vaccine, Unspecified Inj ection Unknown 06/25/2020 Covid-19 vaccine, Unspecified Inj ection Unknown 05/28/2020 Immunizations CPT Code Status Date Vaccine Lot # [id number] Given 02/12/2011 Influenza Virus Split 3 Yrs And Above For Intramuscular Use Vital Signs Date Vital Result Comment 01/21/2021 2:07pm BP Systolic 136 mmHg BP Diastolic 70 mmHg Heart Rate 86 /min O2 % BldC Oximetry 94 % o2 3L continuous 79 on 3L ocd Height 65.50 inches 5'5.50" Weight 147.00 lb BMI (Body Mass Index) 24.1 kg/m2 Amigo Body Weight 125 lb Weight 66.679 kg BSA (Body Surface Area) 1.75 m2 10/30/2020 2:09pm Height 65.50 inches 5'5.50" Weight 132.00 lb BMI (Body Mass Index) 21.6 kg/m2 Amigo Body Weight 125 lb Weight 59.875 kg BSA (Body Surface Area) 1.67 m2 Results Description No Information Available Procedures Date Code Description Status 01/21/2021 85771 Office/Outpatient Established Mo d MDM 30-39 Min Completed 01/21/2021 70665 Spirometry Completed 10/30/2020 05920 Office/Outpatient Established Lo w MDM 20-29 Min Completed 10/30/2020 68002 Laryngoscopy Flexible Fiberoptic Diagnostic Completed 10/02/2020 89954 Office/Outpatient Established Mo d MDM 30-39 Min Completed Medical Devices Description No Information Available Encounters Type Date Location Provider Dx Diagnosis Office Visit 01/21/2021 2:15p [facility] Pulmonary/Thoracic Bev Fitch M.D. R91.8 Other nonspecific abnormal f inding of lung field J43.1 Panlobular emphysema F17.218 Nicotine dependence, cigaret zainab, w oth disorders Office Visit 10/30/2020 2:15p [facility] Oliver Champion MD Z87.891 Personal history of nicotine dependence Z85.21 Personal history of malignan t neoplasm of larynx K11.7 Disturbances of salivary sec retion Office Visit 10/02/2020 1:00p [facility] Pulmonary/Thoracic Will fountain D.O. R91.8 Other nonspecific abnormal finding of sandra ng field J43.1 Panlobular emphysema Z87.891 Personal history of nicotine dependence Assessments Date Code Description Provider 01/21/2021 R91.8 Other nonspecific abnormal findi ng of lung field Brad Fitch M.D. 01/21/2021 J43.1 Panlobular emphysema Brad hilliard M.D. 01/21/2021 F17.218 Nicotine dependence, cigarettes, with other nicotine-induced disorders Brad Fitch M.D. 10/30/2020 Z87.891 Personal history of nicotine dep endence Oliver Champion MD 10/30/2020 Z85.21 Personal history of malignant ne oplasm of larynx Oliver Champion MD 10/30/2020 K11.7 Disturbances of salivary secreti on Oliver Champion MD 10/02/2020 R91.8 Other nonspecific abnormal findi ng of lung field Will Dunham D.O. 10/02/2020 J43.1 Panlobular emphysema Will Dunham D.O. 10/02/2020 Z87.891 Personal history of nicotine dep endence Will Duhnam D.O. Plan of Treatment Future Appointment(s):* 03/11/2021 1:00 pm - Oliver Champion MD at [facility] 01/21/2021 - Brad Fitch M.D.* R91.8 Other nonspecific abnormal finding of lung field * J43.1 Panlobular emphysema * F17.218 Nicotine dependence, cigarettes, with other nicotine-induced disorders * * New Labs:* Arterial Blood Gas, Ordered: 01/21/21 * Percepta Brushes, Ordered: 01/21/21 * New Orders:* Bronchoscopy in Or, Ordered: 01/21/21 * Follow up:* Follow up in office after procedure. Functional Status Functional Condition Comment Date Status Independent with all ADL's Activ e Independent with all IADL's Acti ve Mental Status Mental Condition Comment Date Status Cognitive ability not impaired A ctive Referrals Refer to Reason for Referral Status Appt Date Radiology/Procedure 29628 Closed
--- OUTSIDE RECORDS SUMMARY | 2021-02-06 16:53 | CCD | Continuity of Care Document ---
Author Author Francois MENON [facility] Organization Unknown Address [address] [place] [address] [address] [place] [address] Phone [phone] Care Team Providers Care Production Mechanic Name Role Phone Will Galvez AUTM Unavailable [facility] Physical Therapy AUTM [phone] [facility] AUTM Maty Menon MISSING PERSONS INVESTIGATOR AUTM [phone] Problems Active Problems Provider Date Type II diabetes mellitus uncontrolled SILVIANO Matute, P ADULT SERVICES LIBRARIAN Onset: 02/13/2020 Essential hypertension SILVIANO Matute, PNP Onset: 2019 Thyroiditis SILVIANO Matute, PNP Onset: 0 Thyrotoxicosis SILVIANO Matute, PNP Onset: 0 Benign neoplasm of adrenal gland SILVIANO Matute, PNP Ons et: 02/13/2020 Lymphedema SILVIANO Matute, PNP Onset: 0 Insomnia SILVIANO Matute, PNP [...] uncertain behavior of skin SILVIANO Matute, P ADULT SERVICES LIBRARIAN Onset: 02/13/2020 Solitary nodule of lung SILVIANO [...] every 4-6 hours if needed 12gm CHIRAG MatuteSHENA, PNP Oxygen 2L at bedtime-Marr[place] Unknown Methimazole [...] Date Facility Test Result H/L Range Note Cardiac Marker Panel 01/04/2021 [facility] CPK Creatine Phosphokinase 26 U/L Normal 26-192 CK-MB Value Mass 2.1 NG/ML Normal <3.6 MB/CK Relative Index 8.08 High < Or =4 1 Troponin I < 0.02 NG/ML Normal < 0.10 2 Liver Profile 01/04/2021 [facility] Ast/Sgot 20 U/L Normal 7-37 Alt/SGPT 37 U/L Normal 12-78 Alkaline Phosphatase 139 U/L High 45-117 Bilirubin,Total 0.4 mg/dL Normal 0.2-1.0 Bilirubin,Direct 0.1 mg/dL Normal 0.0-0.2 Total Protein 6.3 GM/DL Low 6.4-8.2 Albumin 2.8 GM/DL Low 3.2-5.2 Albumin/Globulin Ratio 0.8 Low 1.2-2.2 Basic Metabolic Profile 01/04/2021 [facility] Glucose, Fasting 100 mg/dL Normal 70-100 Blood Urea Nitrogen 29 mg/dL High 7-18 Creatinine For GFR 1.14 mg/dL Normal 0.55-1.30 Glomerular Filtration Rate 50.8 Normal >45 3 Sodium Level 135 mEq/L Low 136-145 Potassium Serum 4.5 mEq/L Normal 3.5-5.1 Chloride Level 98 mEq/L Normal 98-107 Carbon Dioxide Level 36 mEq/L High 21-32 Anion Gap 1 mEq/L Low 8-16 Calcium Level 8.0 mg/dL Low 8.8-10.2 CBC With Differential 01/04/2021 [facility] White Blood Count 4.7 10 Normal 4.0-10.0 Red Blood Count 4.34 10 Normal 4.00-5.40 Hemoglobin 11.0 g/dL Low 12.0-15.5 Hematocrit 36.7 % Normal 36.0-47.0 Mean Corpuscular Volume 84.6 fl Normal 80.0-96.0 Mean Corpuscular Hemoglobin 25.3 pg Low 27.0-33.0 Mean Corpuscular HGB Conc 30.0 g/dL Low 32.0-36.5 Red Cell Distribution Width 14.6 % High 11.5-14.5 Platelet Count, Automated 238 10 Normal 150-450 Neutrophils % 53.2 % Normal 36.0-66.0 Lymph % 36.1 % Normal 24.0-44.0 [place] % 8.6 % High 2.0-8.0 Eos % 1.3 % Normal 0.0-3.0 Baso % 0.6 % Normal 0.0-1.0 Immature Granulocyte % 0.2 % Normal 0-3.0 Nucleated Red Blood Cell % 0.0 % Normal 0-0 Neutrophils # 2.5 10 Normal 1.5-8.5 Lymph # 1.7 10 Normal 1.5-5.0 [place] # 0.4 10 Normal 0.0-0.8 Eos # 0.1 10 Normal 0.0-0.5 Baso # 0.0 10 Normal 0.0-0.2 CBC With Differential 11/05/2020 [facility] White Blood Count 5.4 10 Normal 4.0-10.0 [...] 36.0-66.0 Lymph % 34.4 % Normal 24.0-44.0 [place] % 7.3 % Normal 2.0-8.0 Eos % 1.7 % Normal 0.0-3.0 Baso % 0.6 % Normal 0.0-1.0 Immature Granulocyte % 0.0 % Normal 0-3.0 Nucleated Red Blood Cell % 0.0 % Normal 0-0 Neutrophils # 3.0 10 Normal 1.5-8.5 Lymph # 1.8 10 Normal 1.5-5.0 [place] # 0.4 10 Normal 0.0-0.8 Eos # 0.1 10 Normal 0.0-0.5 Baso # 0.0 10 Normal 0.0-0.2 FT4&TSH Panel 11/05/2020 [facility] Thyroid Stimulating Hormone 1.010 uIU/ML Normal 0.358-3.740 Free T4 1.22 ng/dL Normal 0.76-1.46 Laboratory test finding 11/05/2020 [facility] Thyroid Stimulating Hormone 0.927 uIU/ML Normal 0.358-3.740 Lipid Panel 11/05/2020 [facility] Triglycerides Level 73 mg/dL Normal <150 Cholesterol Level 212 mg/dL High <200 HDL Cholesterol 52 mg/dL Normal >40 LDL Cholesterol 145 mg/dL High <100 Non-HDL-C 160 mg/dL Normal Cholesterol Risk Ratio 4.076 Normal <5 Comprehensive Metabolic Profil 11/05/2020 [facility] Glucose, Fasting 105 mg/dL High 70-100 Blood Urea Nitrogen 22 mg/dL High 7-18 Creatinine For GFR 0.93 mg/dL Normal 0.55-1.30 Glomerular Filtration Rate > 60.0 Normal >45 4 Sodium Level 140 mEq/L Normal 136-145 Potassium [...] Normal 3.2-5.2 Albumin/Globulin Ratio 1.1 Low 1.2-2.2 Hemoglobin A1c 11/05/2020 [facility] Hemoglobin A1c 6.0 % Normal 5 Estimated Average Glucose 126 mg/dL High 60-110 1 DIAGNOSIS CRITERIA MMB ng/ml Relative Index (RI) NON-AMI < or = 5 N/A MCDONOUGH ZONE > 5 < or = 4 AMI > 5 > 4 2 Troponin I Reference Interva l for CO-Value LOCI: 99th Percentile= 0.00-0.045 ng/ml Risk Stratification: <= 0.10 ng/ml Decreased Risk for Adverse Clinical Events. 0.10-1.50 ng/ml Increased Risk for Adv erse Clinical Events. Evaluation of additional criterion and/or repeat testing in 2-6 hours is suggested to rule out myocardial damage. >= 1.50 ng/ml Indicative of Myocardial Injury. 3 Units are mL/min/1.73 m2 Chronic Kidney Disease Staging per NKF: Stage I & II GFR >=60 Normal to Mildly Decreased Stage III GFR 30-59 Moderately Decreased Stage IV GFR 15-29 Severely Decreased Stage V GFR <15 Very Little GFR Left ESRD GFR <15 on HOME INSURANCE AGENT 4 Units are mL/min/1.73 m2 Chronic Kidney Disease Staging per NKF: Stage I & II GFR >=60 Normal to Mildly Decreased Stage III GFR 30-59 Moderately Decreased Stage IV GFR 15-29 Severely Decreased Stage V GFR <15 Very Little GFR Left ESRD GFR <15 on HOME INSURANCE AGENT 5 REFERENCE RANGES: <=5.6% NORMAL 5.7-6.4% SUGGESTS IMPAIRED GLUCOSE META BOLISM/PREDIABETIC >= 6.5% ABNORMAL Procedures Date Code Description Status 12/08/2020 78934 Office/Outpatient Established Mo d MDM 30-39 Min Completed 09/09/2020 20849 Office/Outpatient Established Mo d MDM 30-39 Min Completed 07/10/2020 26188 Office/Outpatient Established Mo d MDM 30-39 Min Completed Medical Devices Description No Information Available Encounters Description No Information Available Assessments Date Code Description Provider 12/08/2020 F41.9 Anxiety disorder, unspecified Ka jorje Nevills, MISSING PERSONS INVESTIGATOR 12/08/2020 F33.1 Major depressive disorder, recur rent, moderate Maty Nevills, MISSING PERSONS INVESTIGATOR 12/08/2020 E11.65 Type 2 diabetes mellitus with hy perglycemia Maty Nevills, MISSING PERSONS INVESTIGATOR 12/08/2020 I10 Essential (primary) hypertension Maty Nevills, MISSING PERSONS INVESTIGATOR 12/08/2020 E06.9 Thyroiditis, unspecified Maty N evills, MISSING PERSONS INVESTIGATOR 12/08/2020 E78.00 Pure hypercholesterolemia, unspe cified Maty Nevills, MISSING PERSONS INVESTIGATOR 12/08/2020 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, hypopharyngeal aspect Maty Nevills, MISSING PERSONS INVESTIGATOR 12/08/2020 Z79.899 Other halfway (current) drug t herapy Maty Nevills, [facility] 12/08/2020 Z13.220 Encounter for screening for lipo id disorders Maty Nevills, [facility] 09/09/2020 F41.9 Anxiety disorder, unspecified Ka jorje Nevills, MISSING PERSONS INVESTIGATOR 09/09/2020 F33.1 Major depressive disorder, recur rent, moderate Maty Nevills, [facility] 09/09/2020 E11.65 Type 2 diabetes mellitus with hy perglycemia Maty Nevills, MISSING PERSONS INVESTIGATOR 09/09/2020 I10 Essential (primary) hypertension Maty Nevills, MISSING PERSONS INVESTIGATOR 09/09/2020 E06.9 Thyroiditis, unspecified Maty N evills, MISSING PERSONS INVESTIGATOR 09/09/2020 E78.00 Pure hypercholesterolemia, unspe cified Maty Nevills, MISSING PERSONS INVESTIGATOR 09/09/2020 Z79.899 Other halfway (current) drug t herapy Maty Nevills, [facility] 07/10/2020 Z01.818 Encounter for other preprocedura l [...] Matute, PNP Plan of Treatment Future Appointment(s):* 02/25/2021 1:00 pm - THERESA Varner at [facility] * 04/29/2021 1:00 pm - THERESA Varner at [facility] 12/08/2020 - THERESA Varner* F41.9 Anxiety disorder, [...] E11.65 Type 2 diabetes mellitus with hyperglycemia* Comments:* Her laboratory reports from [facility] dated 11/05/20 were reviewed in detail.Fasting glucose high at 105 with an A1c at 6.The patient was advised to continue with her current medication regimen. She will benefit from maintaining a diabetic diet and a regular exercise regimen. We will continue to monitor. * Follow up:* FU in 6 months, fasting labs a week prior. * I10 Essential (primary) hypertension* Comments:* JNC8 Guidelines - Pt white female > 60 To continue the prescribed ARB. BP is at goal, 142/86Continue current treatment and monitor. She will benefit from maintaining a low sodium diet. * E06.9 Thyroiditis, unspecified* Comments:* Currently stable.To continue current medication and plan of care.We will continue to monitor. * E78.00 Pure hypercholesterolemia, unspecified* Comments:* Her laboratory reports from [facility] dated 11/05/20 were reviewed in detail. Lipid [...] with any abnormal findings. * Z79.899 Other intermission coordinator (current) drug therapy* Comments:* Patient to continue to follow the current plan of care and to look for any new or worsening symptoms. We will continue to monitor through periodic blood work. * Follow up:* FU in 6 months, fasting labs a week prior. * Z13.220 Encounter for screening for lipoid disorders* Comments:* To have the routine labs done to evaluate further.Further plans to follow the lab results.We will continue to monitor. Functional Status Description No Information Available Mental Status Description No Information Available Referrals Description No Information Available
--- OUTSIDE RECORDS SUMMARY | 2021-02-06 16:53 | CCD | Continuity of Care Document ---
Author Author Francois FITCH M.D. Organization Unknown Address [address], [address] [place] [address] Phone [phone] Care Team Providers Care Sharemilker Name Role Phone Elsie Kim AUTM [phone] Maty Menon AUTM [phone] Problems Active Problems Provider Date Chronic obstructive [...] Marie Rebolledo M.D. Onset: Panacinar emphysema Will Galvez D.O. Onset: 12/09/2016 Nicotine dependence, cigarettes, with other nicotine-i nduced disorders Will Galvez D.O. Onset: 12/09/2016 Abnormal findings on diagnostic imaging of lung Will Galvez D.O. Onset: 12/09/2016 Chronic hypoxemic respiratory failure Will Galvez D.O. On set: 12/09/2016 Candidiasis of mouth Will Galvez D.O. Onset: 06/21/2017 Sleep apnea Marie Rebolledo M.D. Onset: 10/2017 Disturbance of consciousness Marie Rebolledo M.D. O nset: 09/15/2017 Jaw pain Will Galvez D.O. Onset: 03/21/2018 Pleural effusion, not elsewhere classified Will Galvez D.O. Onset: 04/06/2018 Otalgia Sushil Cantu MD [...] MD Onset: 12/12/2018 Acute maxillary sinusitis Will Galvez D.O. Onset: 020 Social History Type Date [...] with neb dx j48.112 120ml R91.8 Will Galvez D.O. 10/02/2020 Stiolto Respimat 2.5-2.5mcg/Act Ae rosol 2 puffs once daily Will Galvez D.O. 09/17/2020 Combivent Respimat 20-100mcg/Act A erosol [...] every day elsie kim History Medications Nystatin 508513Pjdw/ML Suspension 5 milliliters swish and swallow 4 times a day x 7 days 140units Will Galvez D.O. 11/12/2020 - 01/07/2021 Albuterol Sulfate (2 .5mg/3ML) 0.083% Nebulizer 1 vial four times a day as needed 360ml J43.1 Will fountain D.O. 09/17/2020 - 04/11/2020 Medications Administered in Office Medication SIG Qnty Indications Ordering Provider Date Covid-19 vaccine, Unspecified Inj ection Unknown 06/25/2020 Covid-19 vaccine, Unspecified Inj ection Unknown 05/28/2020 Immunizations CPT Code Status Date Vaccine Lot # [id number] Given 02/12/2011 Influenza Virus Split 3 Yrs And Above For Intramuscular Use Vital Signs Date Vital Result Comment 01/21/2021 2:07pm BP Systolic 136 mmHg BP Diastolic 70 mmHg Heart Rate 86 /min O2 % BldC Oximetry 94 % o2 3L continuous 79 on 3L ocd Height 65.50 inches 5'5.50" Weight 147.00 lb BMI (Body Mass Index) 24.1 kg/m2 [place] Body Weight 125 lb Weight 66.679 kg BSA (Body Surface Area) 1.75 m2 10/30/2020 2:09pm Height 65.50 inches 5'5.50" Weight 132.00 lb BMI (Body Mass Index) 21.6 kg/m2 [place] Body Weight 125 lb Weight 59.875 kg BSA (Body Surface Area) 1.67 m2 Results Description No Information Available Procedures Date Code Description Status 10/30/2020 74815 Office/Outpatient Established Lo w MDM 20-29 Min Completed 10/30/2020 53998 Laryngoscopy Flexible Fiberoptic Diagnostic Completed 10/02/2020 18847 Office/Outpatient Established Mo d MDM 30-39 Min Completed Medical Devices Description No Information Available Encounters Type Date Location Provider Dx Diagnosis Office Visit 10/30/2020 2:15p [facility] Oliver Champion MD Z87.891 Personal history of nicotine dependence Z85.21 Personal history of malignan t neoplasm of larynx K11.7 Disturbances of salivary sec retion Office Visit 10/02/2020 1:00p [facility] Pulmonary/Thoracic Will fountain D.O. R91.8 Other nonspecific abnormal finding of sandra ng [facility] J43.1 Panlobular emphysema Z87.891 Personal history of [...] abnormal findi ng of lung field Will Galvez D.O. 10/02/2020 J43.1 Panlobular emphysema Will Galvez D.O. 10/02/2020 Z87.891 Personal history of nicotine dep endence Will Galvez D.O. Plan of Treatment Future Appointment(s):* 03/11/2021 1:00 pm - Oliver Champion MD at [facility] 01/21/2021 - Brad Fitch M.D.* R91.8 Other [...] Reason for Referral Status Appt Date Radiology/Procedure 26548 Closed
--- OUTSIDE RECORDS SUMMARY | 2021-02-06 16:53 | CCD | Continuity of Care Document ---
Author Author Francois FITCH M.D. Organization Unknown Address [address] [place] [address] Phone [phone] Care Team Providers Care Ream Cutter Name Role Phone Elsie Kim AUTM [phone] Maty Menon AUTM [phone] Problems Active Problems Provider Date Chronic obstructive [...] every day elsie kim History Medications Nystatin 019232Xarc/ML Suspension 5 milliliters swish and swallow 4 [...] CPT Code Status Date Vaccine Lot # [id number] Given 02/12/2011 Influenza Virus Split 3 Yrs And Above For Intramuscular Use Vital Signs Date Vital Result Comment 01/21/2021 2:07pm BP Systolic 136 mmHg BP Diastolic 70 mmHg Heart Rate 86 /min O2 % BldC Oximetry 94 % o2 3L continuous 79 on 3L ocd Height 65.50 inches 5'5.50" Weight 147.00 lb BMI (Body Mass Index) 24.1 kg/m2 [place] Body Weight 125 lb Weight 66.679 kg BSA (Body Surface Area) 1.75 m2 10/30/2020 2:09pm Height 65.50 inches 5'5.50" Weight 132.00 lb BMI (Body Mass Index) 21.6 kg/m2 [place] Body Weight 125 lb Weight 59.875 kg BSA (Body Surface Area) 1.67 m2 Results Description No Information Available Procedures Date Code Description Status 01/21/2021 59292 Office/Outpatient Established Mo d MDM 30-39 Min Completed 01/21/2021 36868 Spirometry Completed 10/30/2020 03750 Office/Outpatient Established Lo w MDM 20-29 Min Completed 10/30/2020 23234 Laryngoscopy Flexible Fiberoptic Diagnostic Completed 10/02/2020 80106 Office/Outpatient Established Mo d MDM 30-39 Min Completed Medical Devices Description No Information Available Encounters Type Date Location Provider Dx Diagnosis Office Visit 01/21/2021 2:15p [facility] Pulmonary/Thoracic Bev Fitch M.D. R91.8 Other nonspecific abnormal f inding of lung field J43.1 Panlobular emphysema F17.218 Nicotine dependence, cigaret zainab, w oth disorders Office Visit 10/30/2020 2:15p [facility] Oliver Champion MD Z87.891 Personal history of nicotine dependence Z85.21 Personal history of malignan t neoplasm of larynx K11.7 Disturbances of salivary sec retion Office Visit 10/02/2020 1:00p [facility] Pulmonary/Thoracic Will fountain D.O. R91.8 Other [...] 1:00 pm - Oliver Champion MD at [facility] 01/21/2021 - Brad Fitch M.D.* R91.8 Other [...] Reason for Referral Status Appt Date Radiology/Procedure 78882 Closed
--- OUTSIDE RECORDS SUMMARY | 2021-02-06 16:53 | CCD | Continuity of Care Document ---
Author Author Francois DUNHAMOTeresa [place] [address] Phone [phone] Care Team Providers Care Carton Forming Machine Tender Name Role Phone Elsie Kim AUTM [phone] Maty Menon AUTM [phone] Problems Active Problems Provider Date Chronic obstructive [...] every day elsie kim History Medications Nystatin 427557Xhad/ML Suspension 5 milliliters swish and swallow 4 [...] CPT Code Status Date Vaccine Lot # [id number] Given 02/12/2011 Influenza Virus Split 3 Yrs And Above For Intramuscular Use Vital Signs Date Vital Result Comment 01/21/2021 2:07pm BP Systolic 136 mmHg BP Diastolic 70 mmHg Heart Rate 86 /min O2 % BldC Oximetry 94 % o2 3L continuous 79 on 3L ocd Height 65.50 inches 5'5.50" Weight 147.00 lb BMI (Body Mass Index) 24.1 kg/m2 [place] Body Weight 125 lb Weight 66.679 kg BSA (Body Surface Area) 1.75 m2 10/30/2020 2:09pm Height 65.50 inches 5'5.50" Weight 132.00 lb BMI (Body Mass Index) 21.6 kg/m2 [place] Body Weight 125 lb Weight 59.875 kg BSA (Body Surface Area) 1.67 m2 Results Description No Information Available Procedures Date Code Description Status 10/30/2020 64877 Office/Outpatient Established Lo w MDM 20-29 Min Completed 10/30/2020 95545 Laryngoscopy Flexible Fiberoptic Diagnostic Completed 10/02/2020 85061 Office/Outpatient Established Mo d MDM 30-39 Min Completed Medical Devices Description No Information Available Encounters Type Date Location Provider Dx Diagnosis Office Visit 10/30/2020 2:15p [facility] Oliver Champion MD Z87.891 Personal history of nicotine dependence Z85.21 Personal history of malignan t neoplasm of larynx K11.7 Disturbances of salivary sec retion Office Visit 10/02/2020 1:00p [facility] Pulmonary/Thoracic Will fountain D.O. R91.8 Other nonspecific abnormal finding of sandra ng [facility] J43.1 Panlobular emphysema Z87.891 Personal history of [...] Personal history of nicotine dep endence Will Dunham D.O. Plan of Treatment Future Appointment(s):* 03/11/2021 1:00 pm - Oliver Champion MD at [facility]NT [facility] 01/21/2021 - Brad Fitch M.D.* R91.8 [...] Reason for Referral Status Appt Date Radiology/Procedure 30903 Closed
--- OUTSIDE RECORDS SUMMARY | 2021-02-06 16:53 | CCD | Continuity of Care Document ---
Author Author Francois CHAMPION MD Organization Unknown Address [address] [address] Phone [phone] Care Team Providers Care Business Law Teacher Name Role Phone Elsie Kim AUTM [phone] Maty Menon AUTM [phone] Problems Active Problems Provider Date Chronic obstructive [...] ppd currently hx1 PPD FOR 47 YEARS Allergies, Adverse Reactions, Alerts Active Allergies Reaction Severity Comments Date Penicillin Hives 08/27/2009 Ceftin 08/27/2009 Biaxin 08/27/2009 Sulfa Hives 07/25/2018 Prednisone joint pain, sob 11/09/2018 Medications Active Medications SIG Qnty Indications Ordering Provide r Date Nystatin [id number]/ML Suspension 5 milliliters swish and swallow 4 times a day x 7 days 140units Will Galvez D.O. 11/12/2020 Budesonide 0.5mg/2ML Suspension inhale twice a day with neb dx j48.112 120ml R91.8 Will Galvez D.O. 10/02/2020 Stiolto Respimat 2.5-2.5mcg/Act Ae rosol 2 puffs once daily Will Galvez D.O. 09/17/2020 Albuterol Sulfate (2 .5mg/3ML) 0.083% Nebulizer 1 vial four times a day as needed 360ml J43.1 Will fountain D.O. 09/17/2020 Combivent Respimat 20-100mcg/Act A erosol 1 puff four times a day as needed Unknown Esomeprazole Magnesium 40mg Capsul es DR 1 by mouth every day Unknown Oxygen 2l qhs [place] When Sleeping Unknown Mirtazapine 30mg Tablets 1 by mouth every day Unknown Zolpidem Tartrate 10mg Tablets Take One Tablet By Mouth AT Bedtime Maximum Daily Dose One Tablet Unknown Buspirone HCL 15mg Tablets 1 tab by mouth three times a day as needed elsie kim Pravastatin Sodium 20mg Tablets 1 tab by mouth every day elsie kim Medications Administered in Office Medication SIG Qnty Indications Ordering Provider Date Covid-19 vaccine, Unspecified Inj ection Unknown 06/25/2020 Covid-19 vaccine, Unspecified Inj ection Unknown 05/28/2020 Immunizations CPT Code Status Date Vaccine Lot # [id number] Given 02/12/2011 Influenza Virus Split 3 Yrs And Above For Intramuscular Use Vital Signs Date Vital Result Comment 10/30/2020 2:09pm Height 65.50 inches 5'5.50" Weight 132.00 lb BMI (Body Mass Index) 21.6 kg/m2 [place] Body Weight 125 lb Weight 59.875 kg BSA (Body Surface Area) 1.67 m2 10/02/2020 12:44pm BP Systolic 140 mmHg BP Diastolic 90 mmHg Heart Rate 88 /min O2 % BldC Oximetry 943 % Height 65.50 inches 5'5.50" Weight 134.00 lb BMI (Body Mass Index) 22.0 kg/m2 [place] Body Weight 125 lb Weight 60.782 kg BSA (Body Surface Area) 1.68 m2 Results Description No Information Available Procedures Date Code Description Status 10/30/2020 16155 Office/Outpatient Established Lo w MDM 20-29 Min Completed 10/30/2020 92130 Laryngoscopy Flexible Fiberoptic Diagnostic Completed 10/02/2020 01714 Office/Outpatient Established Mo d MDM 30-39 Min Completed 06/02/2020 23519 Office/Outpatient Established Mo d MDM 30-39 Min Completed 05/21/2020 20522 Office/Outpatient Established SF MDM 10-19 Min Completed 05/19/2020 28525 Office/Outpatient Established Lo w MDM 20-29 Min Completed Medical Devices Description No Information Available Encounters Type Date Location Provider Dx Diagnosis Office Visit 10/30/2020 2:15p [facility] Oliver Champion MD Z87.891 Personal history of nicotine dependence Z85.21 Personal history of malignan t neoplasm of larynx K11.7 Disturbances of salivary sec retion Office Visit 10/02/2020 1:00p [facility] Will Se ars, D.O. R91.8 Other nonspecific abnormal finding of sandra ng field J43.1 Panlobular emphysema Z87.891 Personal history of nicotine dependence Office Visit 06/02/2020 2:30p [facility] Will Se ars, D.O. R06.00 Dyspnea, unspecified R05 Cough J43.1 Panlobular emphysema Z85.21 Personal history of malignan t neoplasm of larynx F17.218 Nicotine dependence, cigaret zainab, w oth disorders Office Visit 05/21/2020 1:45p [facility] Oliver Champion MD Z85.21 Personal history of malignant neoplasm of larynx K11.7 Disturbances of salivary sec retion F17.218 Nicotine dependence, cigaret zainab, w oth disorders Office Visit 05/19/2020 2:00p [facility] Will Se ars, D.O. R06.00 Dyspnea, unspecified R05 Cough J43.1 Panlobular emphysema F17.218 Nicotine dependence, cigaret zainab, w oth disorders Assessments Date Code Description Provider 10/30/2020 Z87.891 Personal history of nicotine dep endence Oliver Champion MD 10/30/2020 Z85.21 Personal history of malignant ne oplasm of larynx Oliver Champion MD 10/30/2020 K11.7 Disturbances of salivary secreti on Oliver Champion MD 10/02/2020 R91.8 Other nonspecific abnormal findi ng of lung field Will Galvez, D.O. 10/02/2020 J43.1 Panlobular emphysema Will Galvez, D.O. 10/02/2020 Z87.891 Personal history of nicotine dep endence Will Galvez, D.O. 06/02/2020 R06.00 Dyspnea, unspecified Will Sears, D.O. 06/02/2020 R05 Cough Will Galvez, D.O. 06/02/2020 J43.1 Panlobular emphysema Will Galvez, D.O. 06/02/2020 Z85.21 Personal history of malignant ne oplasm of larynx Will Galvez, D.O. 06/02/2020 F17.218 Nicotine dependence, cigarettes, with other nicotine-induced disorders Rosie Baron.O. 05/21/2020 Z85.21 Personal history of malignant ne oplasm of larynx Oliver Champion MD 05/21/2020 K11.7 Disturbances of salivary secreti on Oliver Champion MD 05/21/2020 F17.218 Nicotine dependence, cigarettes, with other nicotine-induced disorders Oliver Champion MD 05/19/2020 R06.00 Dyspnea, unspecified Will Galvez, D.O. 05/19/2020 R05 Cough Will Galvez, D.O. 05/19/2020 J43.1 Panlobular emphysema Will Galvez, D.O. 05/19/2020 F17.218 Nicotine dependence, cigarettes, with other nicotine-induced disorders Rosie Baron.O. Plan of Treatment Future Appointment(s):* 03/11/2021 1:00 pm - Oliver Champion MD at [facility] * 01/06/2021 11:00 am - Will Galvez D.O. at [facility] * 12/09/2020 2:30 pm - Will Galvez D.O. at [facility] 10/30/2020 - Oliver Champion MD* Z87.891 Personal history of nicotine dependence * Z85.21 Personal history of malignant neoplasm of larynx * K11.7 Disturbances of salivary secretion Functional Status Functional Condition Comment Date Status Independent with all ADL's Activ e Independent with all IADL's Acti ve Mental Status Mental Condition Comment Date Status Cognitive ability not impaired A ctive Referrals Refer to Reason for Referral Status Appt Date Radiology/Procedure 03317 Closed
--- OUTSIDE RECORDS SUMMARY | 2021-02-06 16:53 | CCD | Continuity of Care Document ---
Author Author Francois FITCH M.D. Organization Unknown Address [address] [place] [address] Phone [phone] Care Team Providers Care Call Center Manager Name Role Phone Elsie Kim AUTM [phone] Maty Menon AUTM [phone] Problems Active Problems Provider Date Chronic obstructive [...] every day elsie kim History Medications Nystatin 263899Zgum/ML Suspension 5 milliliters swish and swallow 4 [...] CPT Code Status Date Vaccine Lot # [id number] Given 02/12/2011 Influenza Virus Split 3 Yrs And Above For Intramuscular Use Vital Signs Date Vital Result Comment 01/21/2021 2:07pm BP Systolic 136 mmHg BP Diastolic 70 mmHg Heart Rate 86 /min O2 % BldC Oximetry 94 % o2 3L continuous 79 on 3L ocd Height 65.50 inches 5'5.50" Weight 147.00 lb BMI (Body Mass Index) 24.1 kg/m2 [place] Body Weight 125 lb Weight 66.679 kg BSA (Body Surface Area) 1.75 m2 10/30/2020 2:09pm Height 65.50 inches 5'5.50" Weight 132.00 lb BMI (Body Mass Index) 21.6 kg/m2 [place] Body Weight 125 lb Weight 59.875 kg BSA (Body Surface Area) 1.67 m2 Results Description No Information Available Procedures Date Code Description Status 10/30/2020 42121 Office/Outpatient Established Lo w MDM 20-29 Min Completed 10/30/2020 94260 Laryngoscopy Flexible Fiberoptic Diagnostic Completed 10/02/2020 30389 Office/Outpatient Established Mo d MDM 30-39 Min Completed Medical Devices Description No Information Available Encounters Type Date Location Provider Dx Diagnosis Office Visit 10/30/2020 2:15p [facility] Oliver Champion MD Z87.891 Personal history of nicotine dependence Z85.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 R91.8 Other nonspecific abnormal finding of sandra ng [facility] J43.1 Panlobular emphysema Z87.891 Personal history [...] 1:00 pm - Oliver Champion MD at [facility] 01/21/2021 - Brad Fitch M.D.* R91.8 Other [...] Reason for Referral Status Appt Date Radiology/Procedure 41132 Closed
--- OUTSIDE RECORDS SUMMARY | 2021-02-06 16:53 | CCD | Continuity of Care Document ---
Author Author Francois GUZMAN RISK MGR Organization Unknown Address [address] [place] [address] Phone [phone] Care Team Providers Care Electrophysiology Scientist Name Role Phone Elsie Kim RISK MGR AUTM [phone] Chauncey Alvarez MD AUTM [phone] Maty Menon RISK MGR AUTM [phone] Problems Active Problems Provider Date Pure hypercholesterolemia Onset: 017 Iatrogenic thyroiditis Brenda Zimmerman MD Onset: 04/09/2019 Thyrotoxicosis Brenda Zimmerman MD Onset: 04/09/2019 Benign neoplasm of adrenal gland Brenda Zimmerman MD Onset: 10/26/2016 Essential hypertension Brenda Zimmerman MD Onset: 10/26/2016 Social History Type Date Description Comments Sex Unknown Cigarette Use Current Cigarette Smoker 5-10 Ci garettes Daily ETOH Use Never used alcohol Tobacco Use Start: Unknown Patient is a current smoker, smo kes every day Smoking Status Reviewed: 11/14/20 Patient is a current smoker, smokes every day Allergies, Adverse Reactions, Alerts Active Allergies Reaction Severity Comments Date Penicillin break out in hives 7 sulfa drugs hives 10/20/2016 Medications Active Medications SIG Qnty Indications Ordering Provide r Date Combivent Respimat 20-100mcg/Act A erosol inhale one puff by mouth four times a day as needed Unknown Ambien 10mg Tablets 1 po hs Unknown Januvia 50mg Tablets 1 by mouth every day Unknown Esomeprazole Magnesium 40mg Capsul es DR 1 po qd Unknown Mirtazapine 30mg Tablets 1 po bid Unknown Stiolto Respimat 2.5-2.5mcg/Act Ae rosol Inhale 2 Puffs By Mouth Once Daily Unknown Budesonide 0.5mg/2ML Suspension Inhale One Vial Via Nebulizer Twice A Day Unknown 0 Immunizations Description No Information Available Vital Signs Date Vital Result Comment 11/14/2020 3:06pm BP Systolic 121 mmHg BP Diastolic 66 mmHg Heart Rate 96 /min Height 64.5 inches 5'4.50" Weight 134.25 lb BMI (Body Mass Index) 22.7 kg/m2 O2 % BldC Oximetry 95 % 01/21/2020 12:56pm BP Systolic 122 mmHg BP Diastolic 70 mmHg Heart Rate 85 /min Body Temperature 96.4 F Height 64.5 inches 5'4.50" Weight 134.25 lb BMI (Body Mass Index) 22.7 kg/m2 O2 % BldC Oximetry 98 % Results Test Acquired Date Facility Test Result H/L Range Note FT4&TSH Panel 11/05/2020 [facility] [address] [place] [address] [phone] Thyroid Stimulating Hormone 1.010 uIU/ML Normal 0.358- 3.740 Free T4 1.22 ng/dL Normal 0.76-1.46 Procedures Date Code Description Status 11/14/2020 56743 Office/Outpatient Established w [facility] 20-29 Min Completed Medical Devices Description No Information Available Encounters Type Date Location Provider Dx Diagnosis Office Visit 11/14/2020 3:15p DR. Brenda Guzman, N P E05.80 Other thyrotoxicosis without thyrotoxic crisis or storm E06.4 Drug-induced thyroiditis Assessments Date Code Description Provider 11/14/2020 E05.80 Other thyrotoxicosis without thy rotoxic crisis or storm Olesya Guzman NP 11/14/2020 E06.4 Drug-induced thyroiditis Olesya Guzman NP Plan of Treatment 11/14/2020 - Olesya Guzman NP* E05.80 Other thyrotoxicosis without thyrotoxic crisis or storm* New Labs:* Thyroid Stimulating Hormone, Scheduled: 05/12/21 * Free T4, Scheduled: 05/12/21 * Comments:* Diagnosis of hyperthyroidism. 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 Thyroid function tests were slightly abnormal in February 2018 before she received her chemotherapy.She may have thyroiditis or she may have hyperthyroidism .In office ultrasound showed homogeneous echotexture the right left thyroid glands. Decision made to treat with methimazole.Was started on Methimazole 10 mg daily. TSH = 2.6, free T4 = 1.2 (05/24/2019) Labs had normalized:Dose decreased to 1/2 tablet ( 5 mg) every Tue/Tue/Tuesday Labs done 07/26/2019- TSH= 1.060, FT4= 1.12- stable 10/01/2019 TSH=0.9 FT4= 1.26Methimazole was discontinued. Labs done 12/25/2019- TSH= 0.856, FT4= 1.41Labs done 05/01/20- TSH= 0.885, FT4= 1.21- stable Labs done 11/05/20- TSH= 1.010, FT4= 1.22- stablePt feeling good. Will recheck in 6 months. 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
--- OUTSIDE RECORDS SUMMARY | 2021-02-06 16:53 | CCD | Continuity of Care Document ---
Author Author Francois FITCH M.D. Organization Unknown Address [address] [place] [address] Phone [phone] Care Team Providers Care Manager Cancer Name Role Phone Elsie Kim AUTM [phone] Maty Menon AUTM [phone] Problems Active Problems Provider Date Chronic obstructive [...] every day elsie kim History Medications Nystatin 617307Kvsq/ML Suspension 5 milliliters swish and swallow 4 [...] CPT Code Status Date Vaccine Lot # [id number] Given 02/12/2011 Influenza Virus Split 3 Yrs And Above For Intramuscular Use Vital Signs Date Vital Result Comment 01/21/2021 2:07pm BP Systolic 136 mmHg BP Diastolic 70 mmHg Heart Rate 86 /min O2 % BldC Oximetry 94 % o2 3L continuous 79 on 3L ocd Height 65.50 inches 5'5.50" Weight 147.00 lb BMI (Body Mass Index) 24.1 kg/m2 [place] Body Weight 125 lb Weight 66.679 kg BSA (Body Surface Area) 1.75 m2 10/30/2020 2:09pm Height 65.50 inches 5'5.50" Weight 132.00 lb BMI (Body Mass Index) 21.6 kg/m2 [place] Body Weight 125 lb Weight 59.875 kg BSA (Body Surface Area) 1.67 m2 Results Description No Information Available Procedures Date Code Description Status 01/21/2021 18776 Office/Outpatient Established Mo d MDM 30-39 Min Completed 01/21/2021 99940 Spirometry Completed 10/30/2020 63065 Office/Outpatient Established Lo w MDM 20-29 Min Completed 10/30/2020 98278 Laryngoscopy Flexible Fiberoptic Diagnostic Completed 10/02/2020 57241 Office/Outpatient Established Mo d MDM 30-39 Min Completed Medical Devices Description No Information Available Encounters Type Date Location Provider Dx Diagnosis Office Visit 01/21/2021 2:15p [facility] Bev Fitch M.D. 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 R91.8 Other [...] 1:00 pm - Oliver Champion MD at [facility] 01/21/2021 - Brad Fitch M.D.* [...] Reason for Referral Status Appt Date Radiology/Procedure 32167 Closed
--- OUTSIDE RECORDS SUMMARY | 2021-02-06 16:53 | CCD | Continuity of Care Document ---
Author Author Francois MENON [facility] Organization Unknown Address [address] [place] [address] [address] [place] [address] Phone [phone] Care Team Providers Care Echocardiography Radiology Technologist Name Role Phone Will Galvez AUTM Unavailable [facility] Physical Therapy AUTM [phone] [facility] AUTM [phone] Maty Menon WEAVING INSPECTOR AUTM [phone] Problems Active Problems Provider Date Type II diabetes mellitus uncontrolled SILVIANO Matute, P NURSE TRANSPLANT Onset: 02/13/2020 Essential hypertension SILVIANO Matute, PNP [...] uncertain behavior of skin SILVIANO Matute, P NURSE TRANSPLANT Onset: 02/13/2020 Solitary nodule of lung SILVIANO [...] Range Note CBC With Differential 11/05/2020 [facility] White Blood Count 5.4 10 Normal 4.0-10.0 [...] 36.0-66.0 Lymph % 34.4 % Normal 24.0-44.0 [place] % 7.3 % Normal 2.0-8.0 Eos % 1.7 % Normal 0.0-3.0 Baso % 0.6 % Normal 0.0-1.0 Immature Granulocyte % 0.0 % Normal 0-3.0 Nucleated Red Blood Cell % 0.0 % Normal 0-0 Neutrophils # 3.0 10 Normal 1.5-8.5 Lymph # 1.8 10 Normal 1.5-5.0 [place] # 0.4 10 Normal 0.0-0.8 Eos # 0.1 10 Normal 0.0-0.5 Baso # 0.0 10 Normal 0.0-0.2 Hemoglobin A1c 11/05/2020 [facility] Hemoglobin A1c 6.0 % Normal 1 Estimated Average Glucose 126 mg/dL High 60-110 Comprehensive Metabolic Profil 11/05/2020 [facility] Glucose, Fasting 105 mg/dL High 70-100 Blood [...] 1.1 Low 1.2-2.2 Lipid Panel 11/05/2020 [facility] Triglycerides Level 73 mg/dL Normal <150 Cholesterol Level 212 mg/dL High <200 HDL Cholesterol 52 mg/dL Normal >40 LDL Cholesterol 145 mg/dL High <100 Non-HDL-C 160 mg/dL Normal Cholesterol Risk Ratio 4.076 Normal <5 Laboratory test finding 11/05/2020 [facility] Thyroid Stimulating Hormone 0.927 uIU/ML Normal 0.358-3.740 FT4&TSH Panel 11/05/2020 [facility] Thyroid Stimulating Hormone 1.010 uIU/ML Normal 0.358-3.740 Free T4 1.22 ng/dL Normal 0.76-1.46 CBC With Differential 07/03/2020 [facility] White Blood Count 5.9 10 Normal 4.0-10.0 [...] 36.0-66.0 Lymph % 37.0 % Normal 24.0-44.0 [place] % 6.3 % Normal 2.0-8.0 Eos % 1.2 % Normal 0.0-3.0 Baso % 0.3 % Normal 0.0-1.0 Immature Granulocyte % 0.2 % Normal 0-3.0 Nucleated Red Blood Cell % 0.0 % Normal 0-0 Neutrophils # 3.3 10 Normal 1.5-8.5 Lymph # 2.2 10 Normal 1.5-5.0 [place] # 0.4 10 Normal 0.0-0.8 Eos # 0.1 10 Normal 0.0-0.5 Baso # 0.0 10 Normal 0.0-0.2 Comprehensive Metabolic Profil 07/03/2020 [facility] Glucose, Fasting 137 mg/dL High 70-100 Blood [...] Little GFR Left ESRD GFR <15 on [facility] 3 Units are mL/min/1.73 m2 Chronic Kidney Disease Staging per NKF: Stage I & II GFR >=60 Normal to Mildly Decreased Stage III GFR 30-59 Moderately Decreased Stage IV GFR 15-29 Severely Decreased Stage V GFR <15 Very Little GFR Left ESRD GFR <15 on [facility] Procedures Date Code Description Status 12/08/2020 35982 Office/Outpatient Established Mo d MDM 30-39 Min Completed 09/09/2020 68373 Office/Outpatient Established Mo d MDM 30-39 Min Completed 07/10/2020 34850 Office/Outpatient Established Mo d MDM 30-39 Min Completed Medical Devices Description No Information Available Encounters Type Date Location Provider Dx Diagnosis Office Visit 12/08/2020 3:20p [facility] THERESA Iyer F41.9 Anxiety disorder, unspecified F33.1 Major depressive disorder, r ecurrent, moderate E11.65 Type 2 diabetes mellitus wit h hyperglycemia I10 Essential (primary) hyperten razia E06.9 Thyroiditis, unspecified E78.00 Pure hypercholesterolemia, u nspecified 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, hypopharyngeal aspect Z79.899 Other extermination supervisor (current) dr gallego therapy Z13.220 Encounter for screening for lipoid disorders Assessments Date Code Description Provider 12/08/2020 F41.9 Anxiety disorder, unspecified Ka jorje Menon, THERESA 12/08/2020 F33.1 Major depressive disorder, recur rent, moderate THERESA Varner 12/08/2020 E11.65 Type 2 diabetes mellitus with hy perglycemia THERESA Varner 12/08/2020 I10 Essential (primary) hypertension Maty Nevills, WEAVING INSPECTOR 12/08/2020 E06.9 Thyroiditis, unspecified Maty N evills, WEAVING INSPECTOR 12/08/2020 E78.00 Pure hypercholesterolemia, unspe cified Maty Nevills, WEAVING INSPECTOR 12/08/2020 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, hypopharyngeal aspect Maty Nevills, WEAVING INSPECTOR 12/08/2020 Z79.899 Other snf (current) drug t herapy Maty Nevills, WEAVING INSPECTOR 12/08/2020 Z13.220 Encounter for screening for lipo id disorders Maty Nevills, WEAVING INSPECTOR 09/09/2020 F41.9 Anxiety disorder, unspecified Ka jorje Nevills, WEAVING INSPECTOR 09/09/2020 F33.1 Major depressive disorder, recur rent, moderate Maty Nevills, WEAVING INSPECTOR 09/09/2020 E11.65 Type 2 diabetes mellitus with hy perglycemia Maty Nevills, WEAVING INSPECTOR 09/09/2020 I10 Essential (primary) hypertension Maty Nevills, WEAVING INSPECTOR 09/09/2020 E06.9 Thyroiditis, unspecified Maty N evills, WEAVING INSPECTOR 09/09/2020 E78.00 Pure hypercholesterolemia, unspe cified Maty Nevills, WEAVING INSPECTOR 09/09/2020 Z79.899 Other snf (current) drug t herapy Maty Nevills, WEAVING INSPECTOR 07/10/2020 Z01.818 Encounter for other preprocedura l [...] 04/29/2021 1:00 pm - THERESA Varner at [facility] Ed 12/08/2020 - THERESA Varner* F41.9 Anxiety disorder, [...] 04/27/21 * Comments:* Her laboratory reports from [facility] dated 11/05/20 were reviewed in [...] hypercholesterolemia, unspecified* Comments:* Her laboratory reports from [facility] dated 11/05/20 were reviewed in [...] with any abnormal findings. * Z79.899 Other extermination supervisor (current) drug therapy* New Labs:* CBC With [...]
--- OUTSIDE RECORDS SUMMARY | 2021-02-06 16:53 | CCD | Continuity of Care Document ---
Author Author Francois FITCH M.D. Organization Unknown Address [address] [place] [address] Phone [phone] Care Team Providers Care Floriculture Teacher Name Role Phone Elsie Kim AUTM [phone] Maty Menon AUTM [phone] Problems Active Problems Provider Date Chronic obstructive lung disease May Vega Onset: 10/31/2013 Cough Marie Rebolledo M.D. Onset: Difficulty breathing Marie Rebolledo M.D. Onset: Posterior rhinorrhea Marie Rebolleod M.D. Onset: Tobacco user Marie Rebolledo M.D. [...] every day elsie kim History Medications Nystatin 967298Rtiw/ML Suspension 5 milliliters swish and swallow 4 [...] CPT Code Status Date Vaccine Lot # [id number] Given 02/12/2011 Influenza Virus Split 3 Yrs And Above For Intramuscular Use Vital Signs Date Vital Result Comment 01/21/2021 2:07pm BP Systolic 136 mmHg BP Diastolic 70 mmHg Heart Rate 86 /min O2 % BldC Oximetry 94 % o2 3L continuous 79 on 3L ocd Height 65.50 inches 5'5.50" Weight 147.00 lb BMI (Body Mass Index) 24.1 kg/m2 [place] Body Weight 125 lb Weight 66.679 kg BSA (Body Surface Area) 1.75 m2 10/30/2020 2:09pm Height 65.50 inches 5'5.50" Weight 132.00 lb BMI (Body Mass Index) 21.6 kg/m2 [place] Body Weight 125 lb Weight 59.875 kg BSA (Body Surface Area) 1.67 m2 Results Description No Information Available Procedures Date Code Description Status 10/30/2020 62008 Office/Outpatient Established Lo w MDM 20-29 Min Completed 10/30/2020 07768 Laryngoscopy Flexible Fiberoptic Diagnostic Completed 10/02/2020 80091 Office/Outpatient Established Mo d MDM 30-39 Min Completed Medical Devices Description No Information Available Encounters Type Date Location Provider Dx Diagnosis Office Visit 10/30/2020 2:15p [facility] Oliver Champion MD Z87.891 Personal history of nicotine dependence Z85.21 Personal history of malignan t neoplasm of larynx K11.7 Disturbances of salivary sec retion Office Visit 10/02/2020 1:00p [facility] Will fountain D.O. R91.8 Other nonspecific abnormal finding of sandra ng [facility] J43.1 Panlobular emphysema Z87.891 Personal history of [...] 1:00 pm - Oliver Champion MD at [facility] 01/21/2021 - Brad Fitch M.D.* [...] Reason for Referral Status Appt Date Radiology/Procedure 20304 Closed
--- OUTSIDE RECORDS SUMMARY | 2021-02-06 16:53 | CCD | Continuity of Care Document ---
Author Author Francois GUZMAN DATA ENTRY Organization Unknown Address [address] [place] [address] Phone [phone] Care Team Providers Care Meter Reader Inspector Name Role Phone Elsie Kim DATA ENTRY AUTM [phone] Chauncey Alvarez MD AUTM [phone] Maty Menon DATA ENTRY AUTM [phone] Problems Active Problems Provider Date Pure hypercholesterolemia [...] day Allergies, Adverse Reactions, Alerts Active Allergies Criticality Reaction | Severity Comments Date Penicillin Unable to assess criticality break out in hives 10/20/2016 sulfa drugs Unable to assess criticality hives 10/20/2016 Medications Active Medications SIG Qnty [...] Result H/L Range Note FT4&TSH Panel 11/05/2020 [facility] [address]tr [address] [place] [address] (315)- - Thyroid Stimulating Hormone 1.010 uIU/ML Normal 0.358- 3.740 Free T4 1.22 ng/dL Normal 0.76-1.46 Procedures Date Code Description Status 11/14/2020 72682 Office/Outpatient Established w MDM 20-29 Min Completed Medical Devices Description No Information Available Encounters Type Date Location Provider Dx Diagnosis Office Visit 11/14/2020 3:15p DR. Brenda Guzman, Wendy P E05.80 Other thyrotoxicosis without thyrotoxic crisis or storm E06.4 Drug-induced thyroiditis Assessments Date Code Description Provider 11/14/2020 E05.80 Other thyrotoxicosis without thy rotoxic crisis or storm Olesya Guzman NP 11/14/2020 E06.4 Drug-induced thyroiditis Olesya Guzman NP Plan of Treatment Future Appointment(s):* 06/23/2021 2:15 pm - Olesya Guzman NP at DR. Brenda Zimmerman 11/14/2020 - Olesya B. Nolele, DATA ENTRY* E05.80 Other thyrotoxicosis without thyrotoxic crisis or [...]
--- OUTSIDE RECORDS SUMMARY | 2021-02-06 16:53 | CCD | Continuity of Care Document ---
Author Author Francois FITCH M.D. Organization Unknown Address [address] [place] [address] Phone [phone] Care Team Providers Care Cbx Operator Name Role Phone Elsie Kim AUTM [phone] Maty Menon AUTM [phone] Problems Active Problems Provider Date Chronic obstructive [...] every day elsie kim History Medications Nystatin 145234Ojkn/ML Suspension 5 milliliters swish and swallow 4 [...] CPT Code Status Date Vaccine Lot # [id number] Given 02/12/2011 Influenza Virus Split 3 Yrs And Above For Intramuscular Use Vital Signs Date Vital Result Comment 01/21/2021 2:07pm BP Systolic 136 mmHg BP Diastolic 70 mmHg Heart Rate 86 /min O2 % BldC Oximetry 94 % o2 3L continuous 79 on 3L ocd Height 65.50 inches 5'5.50" Weight 147.00 lb BMI (Body Mass Index) 24.1 kg/m2 [place] Body Weight 125 lb Weight 66.679 kg BSA (Body Surface Area) 1.75 m2 10/30/2020 2:09pm Height 65.50 inches 5'5.50" Weight 132.00 lb BMI (Body Mass Index) 21.6 kg/m2 [place] Body Weight 125 lb Weight 59.875 kg BSA (Body Surface Area) 1.67 m2 Results Description No Information Available Procedures Date Code Description Status 10/30/2020 47082 Office/Outpatient Established Lo w MDM 20-29 Min Completed 10/30/2020 99223 Laryngoscopy Flexible Fiberoptic Diagnostic Completed 10/02/2020 98549 Office/Outpatient Established Mo d MDM 30-39 Min Completed Medical Devices Description No Information Available Encounters Type Date Location Provider Dx Diagnosis Office Visit 10/30/2020 2:15p [facility] Oliver Champion MD Z87.891 Personal history of nicotine dependence Z85.21 Personal history of malignan t neoplasm of larynx 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 R91.8 Other nonspecific abnormal finding of sandra ng [facility] J43.1 Panlobular emphysema Z87.891 Personal history [...] 1:00 pm - Oliver Champion MD at [facility] 01/21/2021 - Brad Fitch M.D.* R91.8 Other [...] Reason for Referral Status Appt Date Radiology/Procedure 12813 Closed
--- OUTSIDE RECORDS SUMMARY | 2021-02-06 16:54 | CCD | Continuity of Care Document ---
Author Author Francois GUZMAN [employer] Organization Unknown Address [address] [place] [address] Phone [phone] Care Team Providers Care Beer Coil Cleaner Name Role Phone Elsie Kim [employer] AUTM [phone] Chauncey Alvarez MD AUTM [phone] Problems Active Problems Provider Date Pure hypercholesterolemia [...] smo kes every day Smoking Status Reviewed: 05/09/20 Patient is a current smoker, smokes every [...] Capsul es DR 1 po qd Unknown Irbesartan 75mg Tablets 1 po qd Unknown Mirtazapine 30mg Tablets 1 po bid Unknown Stiolto Respimat 2.5-2.5mcg/Act Ae rosol Inhale 2 Puffs By Mouth Once Daily Unknown Immunizations Description No Information Available Vital Signs Date Vital Result Comment 01/21/2020 12:56pm BP Systolic 122 mmHg BP Diastolic 70 mmHg Heart Rate 85 /min Body Temperature 96.4 F Height 64.5 inches 5'4.50" Weight 134.25 lb BMI (Body Mass Index) 22.7 kg/m2 O2 % BldC Oximetry 98 % 10/01/2019 3:34pm BP Systolic 116 mmHg BP Diastolic 68 mmHg Heart Rate 86 /min Height 64.5 inches 5'4.50" Weight 130.38 lb BMI (Body Mass Index) 22.0 kg/m2 O2 % BldC Oximetry 90 % Results Test Acquired Date Facility Test Result H/L Range Note FT4&TSH Panel 11/05/2020 [facility] ntr [address] [place] [address] (315)- - Thyroid Stimulating Hormone 1.010 uIU/ML Normal 0.358- 3.740 Free T4 1.22 ng/dL Normal 0.76-1.46 Procedures Description No Information Available Medical Devices Description No Information Available Encounters Description No Information Available Assessments Description No Information Available Plan of Treatment Future Appointment(s):* 11/14/2020 3:15 pm - Olesya Guzman NP at DR. Brenda Zimmerman 05/09/2020 - Olesya Guzman NP* E05.80 Other thyrotoxicosis without thyrotoxic crisis or storm* New Labs:* Thyroid Stimulating Hormone, Scheduled: 10/20/20 * Free T4, Scheduled: 10/20/20 * Comments:* Diagnosis of hyperthyroidism. Most likely [...] done 05/01/20- TSH= 0.885, FT4= 1.21- stable Pt feeling good. Will recheck in 6 months. * E06.4 Drug-induced thyroiditis* Comments:* Patient was [...]
--- OUTSIDE RECORDS SUMMARY | 2021-02-06 16:55 | CCD ---
Author Author [facility] Organization [facility] Address Unknown Phone Unavailable Care Team Providers [employer] Specialist Name Role Phone Leslie Kim ANP-BC Unavailable Unavailable JulioLeslie Elsie ANP-BC Unavailable Unavailable JulioLeslie Elsie ANP-BC Unavailable Unavailable JulioLeslie Elsie ANP-BC Unavailable Unavailable JulioLeslie Elsie ANP-BC Unavailable Unavailable JulioLeslie Elsie ANP-BC Unavailable Unavailable JulioLeslie Elsie ANP-BC Unavailable Unavailable JulioLeslie Elsie ANP-BC Unavailable Unavailable JulioLeslie Elsie ANP-BC Unavailable Unavailable JulioLeslie Elsie ANP-BC Unavailable Unavailable JulioLeslie Elsie ANP-BC Unavailable Unavailable JulioLeslie Elsie ANP-BC Unavailable Unavailable JulioLeslie Elsie ANP-BC Unavailable Unavailable Julio, Leslie Elsie ANP-BC Unavailable Unavailable JulioLeslie Elsie ANP-BC Unavailable Unavailable Julio Leslie Elsie ANP-BC Unavailable Unavailable Julio, Leslie Elsie ANP-BC Unavailable Unavailable JulioLeslie Elsie ANP-BC Unavailable Unavailable Julio, Leslie Elsie ANP-BC Unavailable Unavailable Julio, Leslie Elsie ANP-BC Unavailable Unavailable Julio, Leslie Elsie ANP-BC Unavailable Unavailable Julio, Leslie Elsie ANP-BC Unavailable Unavailable Julio, Leslie Elsie ANP-BC Unavailable Unavailable Julio, Leslie Elsie ANP-BC Unavailable Unavailable Julio, Leslie Elsie ANP-BC Unavailable Unavailable Julio, Leslie Elsie ANP-BC Unavailable Unavailable Julio, Leslie Elsie ANP-BC Unavailable Unavailable Julio, Leslie Elsie ANP-BC Unavailable Unavailable Julio, Leslie Elsie ANP-BC Unavailable Unavailable Julio, Leslie Elsie ANP-BC Unavailable Unavailable Julio, Leslie Elsie ANP-BC Unavailable Unavailable Julio, Leslie Elsie ANP-BC Unavailable Unavailable Julio, Leslie Elsie ANP-BC Unavailable Unavailable Julio, Leslie Elsie ANP-BC Unavailable Unavailable Julio, Leslie Elsie ANP-BC Unavailable Unavailable Julio, Leslie Elsie ANP-BC Unavailable Unavailable Julio, Leslie Elsie ANP-BC Unavailable Unavailable Julio, Leslie Elsie ANP-BC Unavailable Unavailable Julio, Leslie Elsie ANP-BC Unavailable Unavailable Julio, Leslie Elsie ANP-BC Unavailable Unavailable Jluio, Leslie Elsie ANP-BC Unavailable Unavailable Julio, Leslie Elsie ANP-BC Unavailable Unavailable Julio, Leslie Elsie ANP-BC Unavailable Unavailable Julio, Leslie Elsie ANP-BC Unavailable Unavailable Julio, Leslie Elsie ANP-BC Unavailable Unavailable Julio, Leslie Elsie ANP-BC Unavailable Unavailable Julio, Leslie Elsie ANP-BC Unavailable Unavailable Julio, Leslie Elsie ANP-BC Unavailable Unavailable Julio, Leslie Elsie ANP-BC Unavailable Unavailable Julio, Leslie Elsie ANP-BC Unavailable Unavailable Julio, Leslie Elsie ANP-BC Unavailable Unavailable Julio, Leslie Elsie ANP-BC Unavailable Unavailable Julio, Leslie Elsie ANP-BC Unavailable Unavailable Julio, Leslie Elsie ANP-BC Unavailable Unavailable Julio, Leslie Elsie ANP-BC Unavailable Unavailable Julio, Leslie Elsie ANP-BC Unavailable Unavailable Julio, Leslie Elsie ANP-BC Unavailable Unavailable Julio, Leslie Elsie ANP-BC Unavailable Unavailable Julio, Leslie Elsie ANP-BC Unavailable Unavailable Julio, Leslie Elsie ANP-BC Unavailable Unavailable Julio, Leslie Elsie ANP-BC Unavailable Unavailable Julio, Leslie Elsie ANP-BC Unavailable Unavailable Juilo, Leslie Elsie ANP-BC Unavailable Unavailable Julio, Leslie Loran ANP-BC Unavailable Unavailable Julio, Leslie Elsie ANP-BC Unavailable Unavailable Julio, Leslie Elsie ANP-BC Unavailable Unavailable Nevills, C Maty TERADATA SOLUTION ARCHITECT Unavailable Unavailable Nevills, C Maty TERADATA SOLUTION ARCHITECT Unavailable Unavailable Nevills, C Maty TERADATA SOLUTION ARCHITECT Unavailable Unavailable Nevills, C Maty TERADATA SOLUTION ARCHITECT Unavailable Unavailable Nevills, C Maty TERADATA SOLUTION ARCHITECT Unavailable Unavailable Nevills, C Maty TERADATA SOLUTION ARCHITECT Unavailable Unavailable Nevills, C Maty TERADATA SOLUTION ARCHITECT Unavailable Unavailable Nevills, C Maty TERADATA SOLUTION ARCHITECT Unavailable Unavailable Nevills, C Maty TERADATA SOLUTION ARCHITECT Unavailable Unavailable Nevills, C Maty TERADATA SOLUTION ARCHITECT Unavailable Unavailable Nevills, C Maty TERADATA SOLUTION ARCHITECT Unavailable Unavailable Nevills, C Maty TERADATA SOLUTION ARCHITECT Unavailable Unavailable Nevills, C Maty TERADATA SOLUTION ARCHITECT Unavailable Unavailable Nevills, C Maty TERADATA SOLUTION ARCHITECT Unavailable Unavailable Nevills, C Maty TERADATA SOLUTION ARCHITECT Unavailable Unavailable Nevills, C Maty TERADATA SOLUTION ARCHITECT Unavailable Unavailable Nevills, C Maty TERADATA SOLUTION ARCHITECT Unavailable Unavailable Nevills, C Maty TERADATA SOLUTION ARCHITECT Unavailable Unavailable Nevills, C Maty TERADATA SOLUTION ARCHITECT Unavailable Unavailable Nevills, C Mayt TERADATA SOLUTION ARCHITECT Unavailable Unavailable Nevills, C Maty TERADATA SOLUTION ARCHITECT Unavailable Unavailable Nevills, C Maty TERADATA SOLUTION ARCHITECT Unavailable Unavailable Nevills, C Maty TERADATA SOLUTION ARCHITECT Unavailable Unavailable Nevills, C Maty TERADATA SOLUTION ARCHITECT Unavailable Unavailable Nevills, C Maty TERADATA SOLUTION ARCHITECT Unavailable Unavailable Nevills, C Maty TERADATA SOLUTION ARCHITECT Unavailable Unavailable Nevills, C Maty TERADATA SOLUTION ARCHITECT Unavailable Unavailable Nevills, C Maty TERADATA SOLUTION ARCHITECT Unavailable Unavailable Nevills, C Maty TERADATA SOLUTION ARCHITECT Unavailable Unavailable Nevills, C Maty TERADATA SOLUTION ARCHITECT Unavailable Unavailable Nevills, C Maty TERADATA SOLUTION ARCHITECT Unavailable Unavailable Nevills, C Maty TERADATA SOLUTION ARCHITECT Unavailable Unavailable Nevills, C Maty TERADATA SOLUTION ARCHITECT Unavailable Unavailable THOMAS, B CINDY TERADATA SOLUTION ARCHITECT Unavailable Unavailable THOMAS, B CINDY TERADATA SOLUTION ARCHITECT Unavailable Unavailable THOMAS, B CINDY TERADATA SOLUTION ARCHITECT Unavailable Unavailable THOMAS, B CINDY TERADATA SOLUTION ARCHITECT Unavailable Unavailable THOMAS, B CINDY TERADATA SOLUTION ARCHITECT Unavailable Unavailable THOMAS, B CINDY TERADATA SOLUTION ARCHITECT Unavailable Unavailable THOMAS, B CINDY TERADATA SOLUTION ARCHITECT Unavailable Unavailable THOMAS, B CINDY TERADATA SOLUTION ARCHITECT Unavailable Unavailable THOMAS, B CINDY TERADATA SOLUTION ARCHITECT Unavailable Unavailable THOMAS, B CINDY TERADATA SOLUTION ARCHITECT Unavailable Unavailable THOMAS, B CINDY TERADATA SOLUTION ARCHITECT Unavailable Unavailable THOMAS, B CINDY TERADATA SOLUTION ARCHITECT Unavailable Unavailable THOMAS, B CINDY TERADATA SOLUTION ARCHITECT Unavailable Unavailable THOMAS, B CINDY TERADATA SOLUTION ARCHITECT Unavailable Unavailable THOMAS, B CINDY TERADATA SOLUTION ARCHITECT Unavailable Unavailable THOMAS, B CINDY TERADATA SOLUTION ARCHITECT Unavailable Unavailable THOMAS, B CINDY TERADATA SOLUTION ARCHITECT Unavailable Unavailable THOMAS, B CINDY TERADATA SOLUTION ARCHITECT Unavailable Unavailable THOMAS, B CINDY TERADATA SOLUTION ARCHITECT Unavailable Unavailable THOMAS, B CINDY TERADATA SOLUTION ARCHITECT Unavailable Unavailable THOMAS, B CINDY TERADATA SOLUTION ARCHITECT Unavailable Unavailable THOMAS, B CINDY TERADATA SOLUTION ARCHITECT Unavailable Unavailable THOMAS, B CINDY TERADATA SOLUTION ARCHITECT Unavailable Unavailable THOMAS, B CINDY TERADATA SOLUTION ARCHITECT Unavailable Unavailable THOMAS, B CINDY TERADATA SOLUTION ARCHITECT Unavailable Unavailable THOMAS, B CINDY TERADATA SOLUTION ARCHITECT Unavailable Unavailable THOMAS, B CINDY TERADATA SOLUTION ARCHITECT Unavailable Unavailable THOMAS, B CINDY TERADATA SOLUTION ARCHITECT Unavailable Unavailable THOMAS, B CINDY TERADATA SOLUTION ARCHITECT Unavailable Unavailable THOMAS, B CINDY TERADATA SOLUTION ARCHITECT Unavailable Unavailable THOMAS, B CINDY TERADATA SOLUTION ARCHITECT Unavailable Unavailable THOMAS, B CINDY TERADATA SOLUTION ARCHITECT Unavailable Unavailable THOMAS, B CINDY TERADATA SOLUTION ARCHITECT Unavailable Unavailable THOMAS, B CINDY TERADATA SOLUTION ARCHITECT Unavailable Unavailable THOMAS, B CINDY TERADATA SOLUTION ARCHITECT Unavailable Unavailable THOMAS, B CINDY TERADATA SOLUTION ARCHITECT Unavailable Unavailable THOMAS, B CINDY TERADATA SOLUTION ARCHITECT Unavailable Unavailable THOMAS, B CINDY TERADATA SOLUTION ARCHITECT Unavailable Unavailable THOMAS, B CINDY TERADATA SOLUTION ARCHITECT Unavailable Unavailable THOMAS, B CINDY TERADATA SOLUTION ARCHITECT Unavailable Unavailable THOMAS, B CINDY TERADATA SOLUTION ARCHITECT Unavailable Unavailable THOMAS, B CINDY TERADATA SOLUTION ARCHITECT Unavailable Unavailable THOMAS, B CINDY TERADATA SOLUTION ARCHITECT Unavailable Unavailable THOMAS, B CINDY TERADATA SOLUTION ARCHITECT Unavailable Unavailable THOMAS, B CINDY TERADATA SOLUTION ARCHITECT Unavailable Unavailable THOMAS, B CINDY TERADATA SOLUTION ARCHITECT Unavailable Unavailable THOMAS, B CINDY TERADATA SOLUTION ARCHITECT Unavailable Unavailable THOMAS, B CINDY TERADATA SOLUTION ARCHITECT Unavailable Unavailable THOMAS, B CINDY TERADATA SOLUTION ARCHITECT Unavailable Unavailable THOMAS, B CINDY TERADATA SOLUTION ARCHITECT Unavailable Unavailable THOMAS, B CINDY TERADATA SOLUTION ARCHITECT Unavailable Unavailable THOMAS, B CINDY TERADATA SOLUTION ARCHITECT Unavailable Unavailable THOMAS, B CINDY TERADATA SOLUTION ARCHITECT Unavailable Unavailable THOMAS, B CINDY TERADATA SOLUTION ARCHITECT Unavailable Unavailable THOMAS, B CINDY TERADATA SOLUTION ARCHITECT Unavailable Unavailable THOMAS, B CINDY TERADATA SOLUTION ARCHITECT Unavailable Unavailable THOMAS, B CINDY TERADATA SOLUTION ARCHITECT Unavailable Unavailable THOMAS, B CINDY TERADATA SOLUTION ARCHITECT Unavailable Unavailable THOMAS, B CINDY TERADATA SOLUTION ARCHITECT Unavailable Unavailable THOMAS, B CINDY TERADATA SOLUTION ARCHITECT Unavailable Unavailable THOMAS, B CINDY TERADATA SOLUTION ARCHITECT Unavailable Unavailable THOMAS, B CINDY TERADATA SOLUTION ARCHITECT Unavailable Unavailable Leslie Kim ANP-BC Unavailable Unavailable Leslie Kim ANP-BC Unavailable Unavailable Leslie Kim ANP-BC Unavailable Unavailable Julio, Leslie Elsie ANP-BC Unavailable Unavailable Julio, Leslie Elsie ANP-BC Unavailable Unavailable Julio, Leslie Elsie ANP-BC Unavailable Unavailable Julio, Leslie Elsie ANP-BC Unavailable Unavailable Julio, Leslie Elsie ANP-BC Unavailable Unavailable Julio, Leslie Elsie ANP-BC Unavailable Unavailable Julio, Leslie Elsie ANP-BC Unavailable Unavailable Julio, Leslie Elsie ANP-BC Unavailable Unavailable Julio, Leslie Elsie ANP-BC Unavailable Unavailable Julio, Leslie Elsie ANP-BC Unavailable Unavailable Julio, Leslie Elsie ANP-BC Unavailable Unavailable Julio, Leslie Elsie ANP-BC Unavailable Unavailable Julio, Leslie Elsie ANP-BC Unavailable Unavailable Julio, Leslie Elsie ANP-BC Unavailable Unavailable Julio, Leslie Elsie ANP-BC Unavailable Unavailable Julio, Leslie Elsie ANP-BC Unavailable Unavailable Julio, Leslie Elsie ANP-BC Unavailable Unavailable Julio, Leslie Elsie ANP-BC Unavailable Unavailable Julio, Leslie Elsie ANP-BC Unavailable Unavailable Ujlio, Leslie Elsie ANP-BC Unavailable Unavailable Julio, Leslie Elsie ANP-BC Unavailable Unavailable Julio, Leslie Elsie ANP-BC Unavailable Unavailable Julio, Leslie Elsie ANP-BC Unavailable Unavailable Julio, Leslie Elsie ANP-BC Unavailable Unavailable Julio, Leslie Elsie ANP-BC Unavailable Unavailable Julio, Leslie Elsie ANP-BC Unavailable Unavailable Julio, Leslie Elsie ANP-BC Unavailable Unavailable Julio, Leslie Elsie ANP-BC Unavailable Unavailable Julio, Leslie Elsie ANP-BC Unavailable Unavailable Julio, Leslie Elsie ANP-BC Unavailable Unavailable Julio, Leslie Elsie ANP-BC Unavailable Unavailable Julio, Leslie Elsie ANP-BC Unavailable Unavailable Julio, Leslie Elsie ANP-BC Unavailable Unavailable Julio, Leslie Elsie ANP-BC Unavailable Unavailable Julio, Leslie Elsie ANP-BC Unavailable Unavailable Julio, Leslie Elsie ANP-BC Unavailable Unavailable Julio, Leslie Elsie ANP-BC Unavailable Unavailable Julio, Leslie Elsie ANP-BC Unavailable Unavailable Julio, Leslie Elsie ANP-BC Unavailable Unavailable Julio, Leslie Elsie ANP-BC Unavailable Unavailable Julio, Leslie Elsie ANP-BC Unavailable Unavailable Julio, Leslie Elsie ANP-BC Unavailable Unavailable Julio, Leslie Elsie ANP-BC Unavailable Unavailable Julio, Leslie Elsie ANP-BC Unavailable Unavailable Julio, Leslie Elsie ANP-BC Unavailable Unavailable Julio, Leslie Elsie ANP-BC Unavailable Unavailable Julio, Leslie Elsie ANP-BC Unavailable Unavailable Julio, Leslie Elsie ANP-BC Unavailable Unavailable Julio, Leslie Elsie ANP-BC Unavailable Unavailable Julio, Leslie Elsie ANP-BC Unavailable Unavailable Julio, Leslie Elsie ANP-BC Unavailable Unavailable Julio, Leslie Elsie ANP-BC Unavailable Unavailable Julio, Leslie Elsie ANP-BC Unavailable Unavailable Julio, Leslie Elsie ANP-BC Unavailable Unavailable Julio, Leslie Elsie ANP-BC Unavailable Unavailable Julio, Leslie Elsie ANP-BC Unavailable Unavailable Julio, Leslie Elsie ANP-BC Unavailable Unavailable Julio, Leslie Elsie ANP-BC Unavailable Unavailable Julio, Leslie Elsie ANP-BC Unavailable Unavailable Julio, Leslie Elsie ANP-BC Unavailable Unavailable Julio, Leslie Elsie ANP-BC Unavailable Unavailable Julio, Leslie Elsie ANP-BC Unavailable Unavailable Julio, Leslie Elsie ANP-BC Unavailable Unavailable SEARS, A MATT DO Unavailable Unavailable SEARS, A MATT DO Unavailable Unavailable SEARS, A MATT DO Unavailable Unavailable SEARS, A MATT DO Unavailable Unavailable SEARS, A MATT DO Unavailable Unavailable SEARS, A MATT DO Unavailable Unavailable SEARS, A MATT DO Unavailable Unavailable SEARS, A MATT DO Unavailable Unavailable SEARS, A MATT DO Unavailable Unavailable SEARS, A MATT DO Unavailable Unavailable SEARS, A MATT DO Unavailable Unavailable SEARS, A MATT DO Unavailable Unavailable SEARS, A MATT DO Unavailable Unavailable SEARS, A MATT DO Unavailable Unavailable SEARS, A MATT DO Unavailable Unavailable SEARS, A MATT DO Unavailable Unavailable SEARS, A MATT DO Unavailable Unavailable SEARS, A MATT DO Unavailable Unavailable SEARS, A MATT DO Unavailable Unavailable SEARS, A MATT DO Unavailable Unavailable SEARS, A MATT DO Unavailable Unavailable SEARS, A MATT DO Unavailable Unavailable SEARS, A MATT DO Unavailable Unavailable SEARS, A MATT DO Unavailable Unavailable SEARS, A MATT DO Unavailable Unavailable SEARS, A MATT DO Unavailable Unavailable SEARS, A MATT DO Unavailable Unavailable SEARS, A MATT DO Unavailable Unavailable SEARS, A MATT DO Unavailable Unavailable SEARS, A MATT DO Unavailable Unavailable SEARS, A MATT DO Unavailable Unavailable SEARS, A MATT DO Unavailable Unavailable SEARS, A MATT DO Unavailable Unavailable SEARS, A MATT DO Unavailable Unavailable SEARS, A MATT DO Unavailable Unavailable SEARS, A MATT DO Unavailable Unavailable SEARS, A MATT DO Unavailable Unavailable SEARS, A MATT DO Unavailable Unavailable SEARS, A MATT DO Unavailable Unavailable SEARS, A MATT DO Unavailable Unavailable SEARS, A MATT DO Unavailable Unavailable SEARS, A MATT DO Unavailable Unavailable SEARS, A MATT DO Unavailable Unavailable SEARS, A MATT DO Unavailable Unavailable SEARS, A MATT DO Unavailable Unavailable SEARS, A MATT DO Unavailable Unavailable SEARS, A MATT DO Unavailable Unavailable SEARS, A MATT DO Unavailable Unavailable Nevills, C Maty TERADATA SOLUTION ARCHITECT Unavailable Unavailable Nevills, C Maty TERADATA SOLUTION ARCHITECT Unavailable Unavailable Nevills, C Maty TERADATA SOLUTION ARCHITECT Unavailable Unavailable Nevills, C Maty TERADATA SOLUTION ARCHITECT Unavailable Unavailable Nevills, C Maty TERADATA SOLUTION ARCHITECT Unavailable Unavailable Nevills, C Maty TERADATA SOLUTION ARCHITECT Unavailable Unavailable Nevills, C Maty TERADATA SOLUTION ARCHITECT Unavailable Unavailable Nevills, C Maty TERADATA SOLUTION ARCHITECT Unavailable Unavailable Nevills, C Maty TERADATA SOLUTION ARCHITECT Unavailable Unavailable Nevills, C Maty TERADATA SOLUTION ARCHITECT Unavailable Unavailable Nevills, C Maty TERADATA SOLUTION ARCHITECT Unavailable Unavailable Nevills, C Maty TERADATA SOLUTION ARCHITECT Unavailable Unavailable Nevills, C Maty TERADATA SOLUTION ARCHITECT Unavailable Unavailable Nevills, C Maty TERADATA SOLUTION ARCHITECT Unavailable Unavailable Nevills, C Maty TERADATA SOLUTION ARCHITECT Unavailable Unavailable Nevills, C Maty TERADATA SOLUTION ARCHITECT Unavailable Unavailable Nevills, C Maty TERADATA SOLUTION ARCHITECT Unavailable Unavailable Nevills, C Maty TERADATA SOLUTION ARCHITECT Unavailable Unavailable Nevills, C Maty TERADATA SOLUTION ARCHITECT Unavailable Unavailable Nevills, C Maty TERADATA SOLUTION ARCHITECT Unavailable Unavailable Nevills, C Maty TERADATA SOLUTION ARCHITECT Unavailable Unavailable Nevills, C Maty TERADATA SOLUTION ARCHITECT Unavailable Unavailable Nevills, C Maty TERADATA SOLUTION ARCHITECT Unavailable Unavailable Nevills, C Maty TERADATA SOLUTION ARCHITECT Unavailable Unavailable Nevills, C Maty TERADATA SOLUTION ARCHITECT Unavailable Unavailable Nevills, C Maty TERADATA SOLUTION ARCHITECT Unavailable Unavailable Nevills, C Maty TERADATA SOLUTION ARCHITECT Unavailable Unavailable Nevills, C Maty TERADATA SOLUTION ARCHITECT Unavailable Unavailable Nevills, C Maty TERADATA SOLUTION ARCHITECT Unavailable Unavailable Nevills, C Maty TERADATA SOLUTION ARCHITECT Unavailable Unavailable Nevills, C Maty TERADATA SOLUTION ARCHITECT Unavailable Unavailable Nevills, C Maty TERADATA SOLUTION ARCHITECT Unavailable Unavailable Nevills, C Maty TERADATA SOLUTION ARCHITECT Unavailable Unavailable Mindy DHALIWAL MD Unavailable Unavailable Mindy DHALIWAL MD Unavailable Unavailable Manuel JR, D Casandra GUAN Unavailable Unavailable Manuel JR, D Casandra GUAN Unavailable Unavailable Manuel JR, D Casandra GUAN Unavailable Unavailable Manuel JR, D Casandra GUAN Unavailable Unavailable Manuel JR, D Casandra GUAN Unavailable Unavailable Manuel JR, D Casandra GUAN Unavailable Unavailable Manuel JR, D Casandra GUAN Unavailable Unavailable Manuel JR, D Casandra GUAN Unavailable Unavailable Manuel JR, D Casandra GUAN Unavailable Unavailable Manuel JR, D Casandra GUAN Unavailable Unavailable Manuel JR, D Casandra GUAN Unavailable Unavailable Manuel JR, D Casandra GUAN Unavailable Unavailable Manuel JR, D Casandra GUAN Unavailable Unavailable Manuel JR, D Casandra GUAN Unavailable Unavailable Manuel JR, D Casandra GUAN Unavailable Unavailable Manuel JR, D Casandra GUAN Unavailable Unavailable Manuel JR, D Casandra GUAN Unavailable Unavailable Manuel JR, D Casandra GUAN Unavailable Unavailable Manuel JR, D Casandra GUAN Unavailable Unavailable Manuel JR, D Casandra GUAN Unavailable Unavailable Manuel JR, D Casandra GUAN Unavailable Unavailable Manuel JR, D Casandra GUAN Unavailable Unavailable Manuel JR, D Casandra GUAN Unavailable Unavailable Manuel JR, D Casandra GUAN Unavailable Unavailable Manuel JR, D Casandra GUAN Unavailable Unavailable Manuel JR, D Casandra GUAN Unavailable Unavailable Manuel JR, D Casandra GUAN Unavailable Unavailable Manuel JR, D Casandra GUAN Unavailable Unavailable Manuel JR, D Casandra GUAN Unavailable Unavailable Manuel JR, D Casandra GUAN Unavailable Unavailable Manuel JR, D Casandra GUAN Unavailable Unavailable Manuel JR, D Casandra GUAN Unavailable Unavailable Manuel JR, D Casandra GUAN Unavailable Unavailable Manuel JR, D Casandra GUAN Unavailable Unavailable Manuel JR, D Casandra GUAN Unavailable Unavailable Manuel JR, D Casandra GUAN Unavailable Unavailable Manuel JR, D Casandra GUAN Unavailable Unavailable Manuel JR, D Casandra GUAN Unavailable Unavailable Manuel JR, D Casandra GUAN Unavailable Unavailable Manuel JR, D Casandra GUAN Unavailable Unavailable Manuel JR, D Casandra GUAN Unavailable Unavailable Manuel JR, D Casandra GUAN Unavailable Unavailable Manuel JR, D Casandra GUAN Unavailable Unavailable Manuel JR, D Casandra GUAN Unavailable Unavailable Manuel JR, D Casandra GUAN Unavailable Unavailable Manuel JR, D Casandra GUAN Unavailable Unavailable Manuel JR, D Casandra GUAN Unavailable Unavailable Manuel JR, D Casandra GUAN Unavailable Unavailable Manuel JR, D Casandra GUAN Unavailable Unavailable Manuel JR, D Casandra GUAN Unavailable Unavailable Manuel JR, D Casandra GUAN Unavailable Unavailable Manuel JR, D Casandra GUAN Unavailable Unavailable Manuel JR, D Casandra GUAN Unavailable Unavailable Manuel JR, D Casandra GUAN Unavailable Unavailable Manuel JR, D Casandra GUAN Unavailable Unavailable Manuel JR, D Casandra GUAN Unavailable Unavailable Manuel JR, D Casandra GUAN Unavailable Unavailable Manuel JR, D Casandra GUAN Unavailable Unavailable Manuel JR, D Casandra GUAN Unavailable Unavailable Manuel JR, D Casandra GUAN Unavailable Unavailable Manuel JR, D Casandra GUAN Unavailable Unavailable Manuel JR, D Casandra GUAN Unavailable Unavailable Manuel JR, D Casandra GUAN Unavailable Unavailable Manuel JR, D Casandra GUAN Unavailable Unavailable Manuel JR, D Casandra GUAN Unavailable Unavailable Manuel JR, D Casandra GUAN Unavailable Unavailable Manuel JR, D Casandra GUAN Unavailable Unavailable Manuel JR, D Casandra GUAN Unavailable Unavailable NOT, SPECIFIED Unavailable Unavailable Calvin Oconnell MD Unavailable Unavailable Calvin Oconnell MD Unavailable Unavailable Calvin Oconnell MD Unavailable Unavailable Calvin Oconnell MD Unavailable Unavailable Calvin Oconnell MD Unavailable Unavailable Calvin Oconnell MD Unavailable Unavailable Calvin Oconnell MD Unavailable Unavailable Calvin Oconnell MD Unavailable Unavailable Calvin Oconnell MD Unavailable Unavailable Calvin Oconnell MD Unavailable Unavailable Calvin Oconnell MD Unavailable Unavailable Calvin Oconnell MD Unavailable Unavailable Calvin Oconnell MD Unavailable Unavailable Calvin Oconnell MD Unavailable Unavailable Calvin Oconnell MD Unavailable Unavailable Calvin Oconnell MD Unavailable Unavailable Calvin Oconnell MD Unavailable Unavailable Calvin Oconnell MD Unavailable Unavailable Calvin Oconnell MD Unavailable Unavailable Calvin Oconnell MD Unavailable Unavailable Calvin Oconnell MD Unavailable Unavailable Calvin Oconnell MD Unavailable Unavailable Calvin Oconnell MD Unavailable Unavailable Calvin Oconnell MD Unavailable Unavailable Calvin Oconnell MD Unavailable Unavailable Calvin Oconnell MD Unavailable Unavailable Calvin Oconnell MD Unavailable Unavailable Calvin Oconnell MD Unavailable Unavailable Calvin Oconnell MD Unavailable Unavailable Calvin Oconnell MD Unavailable Unavailable Calvin Oconnell MD Unavailable Unavailable Calvin Oconnell MD Unavailable Unavailable Calvin Oconnell MD Unavailable Unavailable Calvin Oconnell MD Unavailable Unavailable Calvin Oconnell MD Unavailable Unavailable Calvin Oconnell MD Unavailable Unavailable Calvin Oconnell MD Unavailable Unavailable Calvin Oconnell MD Unavailable Unavailable Calvin Oconnell MD Unavailable Unavailable Calvin Oconnell MD Unavailable Unavailable Calvin Oconnell MD Unavailable Unavailable Calvin Oconnell MD Unavailable Unavailable Calvin Oconnell MD Unavailable Unavailable Calvin Oconnell MD Unavailable Unavailable Calvin Oconnell MD Unavailable Unavailable Calvin Oconnell MD Unavailable Unavailable Calvin Oconnell MD Unavailable Unavailable Calvin Oconnell MD Unavailable Unavailable Calvin Oconnell MD Unavailable Unavailable Calvin Oconnell MD Unavailable Unavailable Calvin Oconnell MD Unavailable Unavailable Calvin Oconnell MD Unavailable Unavailable Calvin Oconnell MD Unavailable Unavailable Calvin Oconnell MD Unavailable Unavailable Markell CHAMPION MD Unavailable Unavailable Markell CHAMPION MD Unavailable Unavailable Markell CHAMPION MD Unavailable Unavailable Markell CHAMPION MD Unavailable Unavailable Markell CHAMPION MD Unavailable Unavailable Markell CHAMPION MD Unavailable Unavailable Markell CHAMPION MD Unavailable Unavailable Markell CHAMPION MD Unavailable Unavailable Markell CHAMPION MD Unavailable Unavailable Markell CHAMPION MD Unavailable Unavailable Markell CHAMPION MD Unavailable Unavailable Markell CHAMPION MD Unavailable Unavailable Markell CHAMPION MD Unavailable Unavailable Markell CHAMPION MD Unavailable Unavailable Markell CHAMPION MD Unavailable Unavailable Markell CHAMPION MD Unavailable Unavailable Markell CHAMPION MD Unavailable Unavailable Markell CHAMPION MD Unavailable Unavailable Markell CHAMPION MD Unavailable Unavailable Markell CHAMPION MD Unavailable Unavailable Markell CHAMPION MD Unavailable Unavailable Markell CHAMPION MD Unavailable Unavailable Markell CHAMPION MD Unavailable Unavailable Markell CHAMPION MD Unavailable Unavailable Markell CHAMPION MD Unavailable Unavailable Markell CHAMPION MD Unavailable Unavailable Markell CHAMPION MD Unavailable Unavailable Markell CHAMPION MD Unavailable Unavailable Markell CHAMPION MD Unavailable Unavailable Markell CHAMPION MD Unavailable Unavailable Markell CHAMPION MD Unavailable Unavailable Markell CHAMPION MD Unavailable Unavailable Markell CHAMPION MD Unavailable Unavailable Markell CHAMPION MD Unavailable Unavailable Re-disclosure Warning The records that you are about to access may contain information from federally-assisted alcohol or drug abuse programs. If such information is present, then the following federally mandated warning applies: This information has been disclosed to you from records protected by federal confidentiality rules (42 CFR part 2). The federal rules prohibit you from making any further disclosure of this information unless further disclosure is expressly permitted by the written consent of the person to whom it pertains or as otherwise permitted by 42 CFR part 2. A general authorization for the release of medical or other information is NOT sufficient for this purpose. The Federal rules restrict any use of the information to criminally investigate or prosecute any alcohol or drug abuse patient.The records that you are about to access may contain highly sensitive health information, the redisclosure of which is protected by Article 27-F of the [facility] Public Health law. If you continue you may have access to information: Regarding HIV / AIDS; Provided by facilities licensed or operated by the [facility] Office of Mental Health; or Provided by the [facility] Office for People With Developmental Disabilities. If such information is present, then the following [facility] mandated warning applies: This information has been disclosed to you from confidential records which are protected by state law. State law prohibits you from making any further disclosure of this information without the specific written consent of the person to whom it pertains, or as otherwise permitted by law. Any unauthorized further disclosure in violation of state law may result in a fine or penitentiary sentence or both. A general authorization for the release of medical or other information is NOT sufficient authorization for further disc losure. Allergies and Adverse Reactions Type Description Substance Reaction Status Data Source(s ) Drug allergy PREDNISOLONE PREDNISOLONE SEVERE JOINT PAIN [facility] Propensity to adverse reactions SULFA (sulfonamide) SULFA (sulfonamid e) RASH [facility] Propensity to adverse reactions PCN (penicillin) PCN (penicillin) VOM ITING [facility] Family History Family Member Name Family Member Gender Family Member Status Date o f Status Description Data Source(s) Unknown Unknown Problem [facility] ([facility]) Unknown Male Problem [facility] ([facility]) no contact Unknown Male Problem [facility] ([facility] () Encounters Encounter Providers Location Date Indications Data Source(s ) Outpatient Attender: RADHA Champion/Jennifer/Hal/ Reindl 01/21/2021 02:15:00 PM EDT [facility] ([facility] Outpatient Attender: Maty Menon NPConsultant: SPECIFIED NOT 12/08/2020 03:21:00 PM EDT - 12/08/2020 03:21:00 PM EDT [facility] Outpatient Attender: Maty Menon NP Family Practice 12/08 03:20:00 PM EDT [facility] ([facility] OFFICE OUTPATIENT VISIT 15 MINUTES Attender: CINDY GUZMAN NP Physical Therapy 11/14/2020 03:15:00 PM EDT [facility] ([facility]) Outpatient Attender: ANKIT Champion/Jennifer/Hal/Reind claudio 10/30/2020 02:15:00 PM EDT [facility] ([facility] Outpatient Attender: MATT Westbrook/Jennifer/Hal/Reindl 10/02/2020 01:00:00 PM EDT [facility] ([facility] Outpatient Attender: Maty Menon NPConsultant: SPECIFIED NOT 09/09/2020 01:00:00 PM EDT - 09/09/2020 01:00:00 PM EDT [facility] Outpatient Attender: Casandra Ballardsultant: SPECIFIE D NOT 08/21/2020 09:45:00 AM EDT - 08/21/2020 11:36:00 AM EDT [facility] Patient discharged. Outpatient Attender: Casandra Jackson JRConsultant: SPECIFIE D NOT 08/16/2020 08:50:00 AM EDT - 08/16/2020 09:50:00 AM EDT [facility] Patient discharged. Outpatient Attender: Casandra Jackson JRConsultant: SPECIFIE D NOT 07/28/2020 10:43:00 AM EDT - 07/28/2020 11:43:00 AM EDT [facility] Patient discharged. Outpatient Attender: Casandra Manuel JRConsultant: SPECIFIE D NOT 07/25/2020 11:48:24 AM EDT - 08/03/2020 01:26:00 PM EDT [facility] Patient discharged. Outpatient Attender: Casandra Jackson JRConsultant: SPECIFIE D NOT 07/17/2020 06:00:00 AM EDT - 07/17/2020 08:21:00 AM EDT [facility] Patient discharged. Outpatient Attender: Casandra Jackson Consultant: SPECIFIE D NOT 07/12/2020 09:18:00 AM EDT - 07/12/2020 10:18:00 AM EDT [facility] Patient discharged. Outpatient Attender: Elsie SWIFT- Family Practice 04/2020 11:00:00 AM EDT [facility] ([facility]) Outpatient Attender: Elsie LYLESonsultant: SPECIFIED NOT 07/10/2020 10:45:00 AM EDT - 07/10/2020 10:45:00 AM EDT [facility] Outpatient Attender: Casandra Jackson Eliosultant: SPECIFIE D NOT 07/09/2020 09:58:33 AM EDT - 07/09/2020 01:40:00 PM EDT [facility] Patient discharged. Outpatient Attender: MATT Westbrook/Jennifer/Hal/Reindl 06/02/2020 01:30:00 PM EST [facility] ([facility] Outpatient Attender: ANKIT Champion/Jennifer/Hal/Reind claudio 05/21/2020 12:45:00 PM EST [facility] ([facility] Outpatient Attender: MATT Zambrano/Hal/Reindl 05/19/2020 01:00:00 PM EST [facility] ([facility] Outpatient Attender: Elsie LYLESonsultant: SPECIFIED NOT 05/15/2020 12:57:00 PM EST - 05/15/2020 12:57:00 PM EST [facility] OFFICE OUTPATIENT VISIT 15 MINUTES Attender: CINDY THOMAS TERADATA SOLUTION ARCHITECT Physical Therapy 05/09/2020 10:15:00 AM EST [facility] ([facility]) Outpatient Attender: Elsie Kim ANP-BCConsultant: SPECIFIED NOT 02/13/2020 10:44:00 AM EST - 02/13/2020 10:44:00 AM EST [facility] OFFICE OUTPATIENT VISIT 15 MINUTES Attender: CINDY GUZMAN TERADATA SOLUTION ARCHITECT Physical Therapy 01/21/2020 01:00:00 PM EDT [facility] ([facility]) Outpatient Attender: MATT Westbrook/Jennifer/Hal/Reindl 01/17/2020 12:00:00 PM EDT [facility] ([facility] Outpatient Attender: Miguel A Champion/Jennifer/Hal/R eindl 12/09/2019 01:23:00 AM EDT [facility] ([facility] Immunizations Vaccine Date Status Description Data Source(s) COVID-19 VACCINE Moderna 06/25/2020 12:00:00 AM EDT completed [facility] Vaccine Series Complete: YESThis Data wa s Submitted to [facility] Via [employer]. COVID-19 VACCINE, [id number], LNP-S (MODERNA)/PF 06/25/2020 1 2:00:00 AM EDT completed [facility] COVID-19 VACCINE Moderna 05/28/2020 12:00:00 AM EST completed [facility] Vaccine Series Complete: NOThis Data was Submitted to [facility] Via [employer]. COVID-19 VACCINE, [id number], LNP-S (MODERNA)/PF 05/28/2020 1 2:00:00 AM EST completed [facility] Medications Medication Brand Name Start Date Product Form Dose Route Admi nistrative Instructions Pharmacy Instructions Status Indications Reaction Description Data Source(s) 500 mg 01/05/2021 12:00:00 AM EDT tablet 3 TAKE ONE TABLET BY MOUTH EVERY DAY TAKE ONE TABLET BY MOUTH EVERY DAY SOLD: 01/05/2021 [facility] 100 mg 01/05/2021 12:00:00 AM EDT capsule 10 TAKE ONE CAPSULE BY MOUTH EVERY 12 HOURS TAKE ONE CAPSULE BY MOUTH EVERY 12 HOURS SOLD: 01/05/2021 [facility] 30 mg 01/02/2021 12:00:00 AM EDT tablet 60 TAKE ONE TABLET BY MOUTH TWICE A DAY TAKE ONE TABLET BY MOUTH TWICE A DAY SOLD: 01/13/2021 [facility] 30 mg 01/02/2021 12:00:00 AM EDT tablet 60 TAKE ONE TABLET BY MOUTH TWICE A DAY TAKE ONE TABLET BY MOUTH TWICE A DAY SOLD: 02/02/2021 [facility] 30 mg 01/02/2021 12:00:00 AM EDT tablet 60 TAKE ONE TABLET BY MOUTH TWICE A DAY TAKE ONE TABLET BY MOUTH TWICE A DAY SOLD: 01/02/2021 [facility] 10 mg 12/25/2020 12:00:00 AM EDT tablet 30 TAKE ONE TABLET BY MOUTH EVERY DAY MAXIMUM DAILY DOSE = 1 TABLET TAKE ONE TABLET BY MOUTH EVERY DAY MAXIM UM DAILY DOSE = 1 TABLET SOLD: 01/24/2021 [facility] 10 mg 12/25/2020 12:00:00 AM EDT tablet 30 TAKE ONE TABLET BY MOUTH EVERY DAY MAXIMUM DAILY DOSE = 1 TABLET TAKE ONE TABLET BY MOUTH EVERY DAY MAXIM UM DAILY DOSE = 1 TABLET SOLD: 12/26/2020 [facility] 1,000 mg 11/27/2020 12:00:00 AM EDT tablet 90 TAKE ONE TABLET BY MOUTH EVERY DAY TAKE ONE TABLET BY MOUTH EVERY DAY SOLD: 11/27/2020 [facility] 100,000 unit/mL 11/13/2020 12:00:00 AM EDT suspension 60 SWISH AND SWALLOW 5ML BY MOUTH FOUR TIMES A DAY FOR 7 DAYS SWISH AND SWALLOW 5ML BY MOUTH FOUR TIMES A DAY FOR 7 DAYS SOLD: 11/19/2020 [facility] Nystatin 594348 UNT/ML Oral Suspension Nystatin 11/12/2020 12:00:00 AM EDT completed [facility] ([facility]) 30 mg 11/08/2020 12:00:00 AM EDT tablet 60 TAKE ONE TABLET BY MOUTH TWICE A DAY TAKE ONE TABLET BY MOUTH TWICE A DAY SOLD: 12/18/2020 [facility] 30 mg 11/08/2020 12:00:00 AM EDT tablet 60 TAKE ONE TABLET BY MOUTH TWICE A DAY TAKE ONE TABLET BY MOUTH TWICE A DAY SOLD: 11/08/2020 [facility] 30 mg 11/08/2020 12:00:00 AM EDT tablet 60 TAKE ONE TABLET BY MOUTH TWICE A DAY TAKE ONE TABLET BY MOUTH TWICE A DAY SOLD: 11/30/2020 [facility] Budesonide 0.25 MG/ML Inhalant Solution Budesonide 10/02/2020 12: 00:00 AM EDT active [facility] ([facility] 0.5 mg/2 mL 10/02/2020 12:00:00 AM EDT suspension for nebuli zation 120 INHALE ONE VIAL VIA NEBULIZER TWICE A DAY INHALE ONE VIAL VIA NEBULIZER TWICE A DAY SOLD: 01/13/2021 [facility] 0.5 mg/2 mL 10/02/2020 12:00:00 AM EDT suspension for nebuli zation 120 INHALE ONE VIAL VIA NEBULIZER TWICE A DAY INHALE ONE VIAL VIA NEBULIZER TWICE A DAY SOLD: 10/13/2020 [facility] 10 mg 09/27/2020 12:00:00 AM EDT tablet 30 TAKE ONE TABLET BY MOUTH AT BEDTIME MAXIMUM DAILY DOSE = ONE TABLET TAKE ONE TABLET BY MOUTH AT BEDTIME MAXIMUM DAILY DOSE = ONE TABLET SOLD: 10/27/2020 [facility] 10 mg 09/27/2020 12:00:00 AM EDT tablet 30 TAKE ONE TABLET BY MOUTH AT BEDTIME MAXIMUM DAILY DOSE = ONE TABLET TAKE ONE TABLET BY MOUTH AT BEDTIME MAXIMUM DAILY DOSE = ONE TABLET SOLD: 11/25/2020 [facility] 10 mg 09/27/2020 12:00:00 AM EDT tablet 30 TAKE ONE TABLET BY MOUTH AT BEDTIME MAXIMUM DAILY DOSE = ONE TABLET TAKE ONE TABLET BY MOUTH AT BEDTIME MAXIMUM DAILY DOSE = ONE TABLET SOLD: 09/27/2020 [facility] 4 mg 09/23/2020 12:00:00 AM EDT tablets,dose pack 21 TAKE BY MOUTH DAILY DIRECTED ON DOSEPACK TAKE BY MOUTH DAILY DIRECTED ON DOSEPACK SOLD: 09/23/2020 [facility] Albuterol 0.83 MG/ML Inhalant Solution Albuterol Sulfate 0 09/17/2020 12:00:00 AM EDT completed [facility] ([facility], ) Stiolto Respimat Stiolto Respimat 09/17/2020 12:00:00 AM EDT RESPIRATORY active [facility] ([facility], ) 500 mg 09/17/2020 12:00:00 AM EDT tablet 10 TAKE ONE TABLET BY MOUTH EVERY DAY FOR 10 DAYS TAKE ONE TABLET BY MOUTH EVERY DAY FOR 10 DAYS SOLD: [facility] 30 mg 09/10/2020 12:00:00 AM EDT tablet 60 TAKE ONE TABLET BY MOUTH TWICE A DAY TAKE ONE TABLET BY MOUTH TWICE A DAY SOLD: 09/11/2020 [facility] 30 mg 09/10/2020 12:00:00 AM EDT tablet 60 TAKE ONE TABLET BY MOUTH TWICE A DAY TAKE ONE TABLET BY MOUTH TWICE A DAY SOLD: 10/02/2020 [facility] 30 mg 09/10/2020 12:00:00 AM EDT tablet 60 TAKE ONE TABLET BY MOUTH TWICE A DAY TAKE ONE TABLET BY MOUTH TWICE A DAY SOLD: 10/17/2020 [facility] 25 mg 09/10/2020 12:00:00 AM EDT tablet 60 TAKE ONE TABLET BY MOUTH TWICE A DAY NEEDED FOR ANXIETY TAKE ONE TABLET BY MOUTH TWICE A DAY NEEDED FOR ANXIETY SOLD: 09/11/2020 [facility] Hydroxyzine Hydrochloride 25 MG Oral Tablet Hydroxyzine HCL 09/09/2020 12:00:00 AM EDT ORAL active [facility] ([facility]) 10 mg 08/29/2020 12:00:00 AM EDT tablet 30 TAKE ONE TABLET BY MOUTH EVERY DAY AT BEDTIME, MAXIMUM DAILY DOSE = ONE TABLET TAKE ONE TABLET BY MOUTH EVERY DAY AT BEDTIME, MAXIMUM DAILY DOSE = ONE TABLET SOLD: 08/29/2020 [facility] 150 mg 08/25/2020 12:00:00 AM EDT tablet 45 TAKE ONE-HALF TABLET BY MOUTH EVERY DAY TAKE ONE-HALF TABLET BY MOUTH EVERY DAY SOLD: 08/25/2020 [facility] 40 mg 08/25/2020 12:00:00 AM EDT capsule,delayed release (DR/EC) 30 TAKE ONE CAPSULE BY MOUTH EVERY DAY TAKE ONE CAPSULE BY MOUTH EVERY DAY SOLD: 02/02/2021 [facility] 40 mg 08/25/2020 12:00:00 AM EDT capsule,delayed release (DR/EC) 90 TAKE ONE CAPSULE BY MOUTH EVERY DAY TAKE ONE CAPSULE BY MOUTH EVERY DAY SOLD: 08/25/2020 [facility] 40 mg 08/25/2020 12:00:00 AM EDT capsule,delayed release (DR/EC) 30 TAKE ONE CAPSULE BY MOUTH EVERY DAY TAKE ONE CAPSULE BY MOUTH EVERY DAY SOLD: 12/27/2020 [facility] 40 mg 08/25/2020 12:00:00 AM EDT capsule,delayed release (DR/EC) 30 TAKE ONE CAPSULE BY MOUTH EVERY DAY TAKE ONE CAPSULE BY MOUTH EVERY DAY SOLD: 11/27/2020 [facility] 10 mg 07/31/2020 12:00:00 AM EDT tablet 30 TAKE ONE TABLET BY MOUTH AT BEDTIME, MAXIMUM DAILY DOSE = 1 TABLET TAKE ONE TABLET BY MOUTH AT BEDTIME, MAXIMUM DAILY DOSE = 1 TABLET SOLD: 07/31/2020 [facility] 0.5 % 07/16/2020 12:00:00 AM EDT drops,suspension 5 INSTILL 1 DROP IN THE LEFT EYE THREE TIMES A DAY, START THE MORNING OF SURGERY THEN CONTINUE FOR 2 WEEKS INSTILL 1 DROP IN THE LEFT EYE THREE SYLVIA ES A DAY, START THE MORNING OF SURGERY THEN CONTINUE FOR 2 WEEKS SOLD: 07/16/2020 [facility] 1 % 07/04/2020 12:00:00 AM EDT drops,suspension 10 INSTILL ONE DROP IN THE LEFT EYE FOUR TIMES A DAY STARTING THE MORNING OF SURGERY, THEN CONTINUE AND TAPER DIRECTED FOR 1 MONTH INSTILL ONE DROP IN THE LEFT EYE FOUR TI MES A DAY STARTING THE MORNING OF SURGERY, THEN CONTINUE AND TAPER DIRECTED FOR 1 MONTH SOLD: 07/06/2020 [facility] 0.3 % 07/04/2020 12:00:00 AM EDT drops 5 INSTILL ONE DROP IN THE LEFT EYE FOUR TIMES A DAY STARTING THE DAY BEFORE SURGERY, THEN CONTINUE FOR ONE WEEK AFTER INSTILL ONE DROP IN THE LEFT EYE FOUR TI MES A DAY STARTING THE DAY BEFORE SURGERY, THEN CONTINUE FOR ONE WEEK AFTER SOLD: 07/06/2020 [facility] 0.4 % 07/04/2020 12:00:00 AM EDT drops 5 INSTILL ONE DROP IN THE LEFT EYE FOUR TIMES A DAY STARTING THE DAY BEFORE SURGERY, THEN CONTINUE AND TAPER DIRECTED FOR ONE MONTH INSTILL ONE DROP IN THE LEFT EYE FOUR TI MES A DAY STARTING THE DAY BEFORE SURGERY, THEN CONTINUE AND TAPER DIRECTED FOR ONE MONTH SOLD: 07/06/2020 [facility] 0.4 % 07/04/2020 12:00:00 AM EDT drops 5 INSTILL ONE DROP IN THE LEFT EYE FOUR TIMES A DAY STARTING THE DAY BEFORE SURGERY, THEN CONTINUE AND TAPER DIRECTED FOR ONE MONTH INSTILL ONE DROP IN THE LEFT EYE FOUR TI MES A DAY STARTING THE DAY BEFORE SURGERY, THEN CONTINUE AND TAPER DIRECTED FOR ONE MONTH SOLD: 08/23/2020 [facility] 60 ACTUAT olodaterol 0.0025 MG/ACTUAT / tiotropium 0.0025 MG/ACTUAT Metered Dose Inhaler [Stiolto] 2.5-2.5 mcg/actuation TIOTROPIUM BR/OLODATEROL HCL 06/27/2020 12:00:00 AM EDT mist 4 INHALE 2 PUFFS BY MOUTH O NCE DAILY INHALE 2 PUFFS BY MOUTH ONCE DAILY SOLD: 07/30/2020 [facility] 60 ACTUAT olodaterol 0.0025 MG/ACTUAT / tiotropium 0.0025 MG/ACTUAT Metered Dose Inhaler [Stiolto] 2.5-2.5 mcg/actuation TIOTROPIUM BR/OLODATEROL HCL 06/27/2020 12:00:00 AM EDT mist 4 INHALE 2 PUFFS BY MOUTH ONCE DAILY INHALE 2 PUFFS BY MOUTH ONCE DAILY SOLD: 12/09/2020 [facility] 2.5-2.5 mcg/actuation 06/27/2020 12:00:00 AM EDT mist 4 INHALE 2 PUFFS BY MOUTH ONCE DAILY INHALE 2 PUFFS BY MOUTH ONCE DAILY SOLD: 06/28/2020 [facility] 60 ACTUAT olodaterol 0.0025 MG/ACTUAT / tiotropium 0.0025 MG/ACTUAT Metered Dose Inhaler [Stiolto] 2.5-2.5 mcg/actuation TIOTROPIUM BR/OLODATEROL HCL 06/27/2020 12:00:00 AM EDT mist 4 INHALE 2 PUFFS BY MOUTH ONCE DAILY INHALE 2 PUFFS BY MOUTH ONCE DAILY SOLD: 11/04/2020 [facility] 60 ACTUAT olodaterol 0.0025 MG/ACTUAT / tiotropium 0.0025 MG/ACTUAT Metered Dose Inhaler [Stiolto] 2.5-2.5 mcg/actuation TIOTROPIUM BR/OLODATEROL HCL 06/27/2020 12:00:00 AM EDT mist 4 INHALE 2 PUFFS BY MOUTH ONCE DAILY INHALE 2 PUFFS BY MOUTH ONCE DAILY SOLD: 08/31/2020 [facility] 60 ACTUAT olodaterol 0.0025 MG/ACTUAT / tiotropium 0.0025 MG/ACTUAT Metered Dose Inhaler [Stiolto] 2.5-2.5 mcg/actuation TIOTROPIUM BR/OLODATEROL HCL 06/27/2020 12:00:00 AM EDT mist 4 INHALE 2 PUFFS BY MOUTH ONCE DAILY INHALE 2 PUFFS BY MOUTH ONCE DAILY SOLD: 10/02/2020 [facility] Covid-19 vaccine, Unspecified 06/25/2020 12:00:00 AM EDT completed [facility] ([facility], ) Medication administered onsite Covid-19 vaccine, Unspecified 05/28/2020 12:00:00 AM EST completed [facility] ([facility], ) Medication administered onsite 30 mg 05/23/2020 12:00:00 AM EST tablet 60 TAKE ONE TABLET BY MOUTH TWO TIMES A DAY TAKE ONE TABLET BY MOUTH TWO TIMES A DAY SOLD: 08/18/2020 [facility] 30 mg 05/23/2020 12:00:00 AM EST tablet 60 TAKE ONE TABLET BY MOUTH TWO TIMES A DAY TAKE ONE TABLET BY MOUTH TWO TIMES A DAY SOLD: 07/14/2020 [facility] 30 mg 05/23/2020 12:00:00 AM EST tablet 60 TAKE ONE TABLET BY MOUTH TWO TIMES A DAY TAKE ONE TABLET BY MOUTH TWO TIMES A DAY SOLD: 05/24/2020 [facility] 30 mg 05/23/2020 12:00:00 AM EST tablet 60 TAKE ONE TABLET BY MOUTH TWO TIMES A DAY TAKE ONE TABLET BY MOUTH TWO TIMES A DAY SOLD: 06/19/2020 [facility] 30 mg 05/23/2020 12:00:00 AM EST tablet 60 TAKE ONE TABLET BY MOUTH TWO TIMES A DAY TAKE ONE TABLET BY MOUTH TWO TIMES A DAY SOLD: 09/07/2020 [facility] 30 mg 05/23/2020 12:00:00 AM EST tablet 60 TAKE ONE TABLET BY MOUTH TWO TIMES A DAY TAKE ONE TABLET BY MOUTH TWO TIMES A DAY SOLD: 07/31/2020 [facility] buspirone hydrochloride 15 MG Oral Tablet Buspirone HCL 05/15/2020 12:00:00 AM EST ORAL completed [facility] ([facility]) Pravastatin Sodium 20 MG Oral Tablet Pravastatin Sodium 07/2020 12:00:00 AM EST ORAL active [facility] ([facility]) 20 mg 05/15/2020 12:00:00 AM EST tablet 90 TAKE ONE TABLET BY MOUTH EVERY NIGHT TAKE ONE TABLET BY MOUTH EVERY NIGHT SOLD: 08/15/2020 [facility] 500 mg 05/15/2020 12:00:00 AM EST tablet 10 TAKE ONE TABLET BY MOUTH EVERY DAY TAKE ONE TABLET BY MOUTH EVERY DAY SOLD: 05/26/2020 [facility] 500 mg 05/15/2020 12:00:00 AM EST tablet 10 TAKE ONE TABLET BY MOUTH EVERY DAY TAKE ONE TABLET BY MOUTH EVERY DAY SOLD: 05/15/2020 [facility] 20 mg 05/15/2020 12:00:00 AM EST tablet 90 TAKE ONE TABLET BY MOUTH EVERY NIGHT TAKE ONE TABLET BY MOUTH EVERY NIGHT SOLD: 05/15/2020 [facility] 20 mg 05/15/2020 12:00:00 AM EST tablet 90 TAKE ONE TABLET BY MOUTH EVERY NIGHT TAKE ONE TABLET BY MOUTH EVERY NIGHT SOLD: 11/19/2020 [facility] buspirone hydrochloride 15 MG Oral Tablet BUSPIRONE HCL 05/15/2020 12:00:00 AM EST tablet 270 TAKE ONE TABLET BY MOUTH TWICE A DAY, TAKE AN AFTERNOON DOSE NEEDED FOR ANXIETY TAKE ONE TABLET BY MOUTH TWICE A DAY, TA KE AN AFTERNOON DOSE NEEDED FOR ANXIETY SOLD: 05/15/2020 [facility] Levofloxacin 500 MG Oral Tablet Levofloxacin 05/15/2020 12:00:[address] ORAL completed [facility] ([facility]) 10 mg 04/08/2020 12:00:00 AM EST tablet 30 TAKE ONE TABLET BY MOUTH AT BEDTIME MAXIMUM DAILY DOSE = 1 TAKE ONE TABLET BY MOUTH AT BEDTIME MAXI MUM DAILY DOSE = 1 SOLD: 04/08/2020 [facility] 10 mg 04/08/2020 12:00:00 AM EST tablet 30 TAKE ONE TABLET BY MOUTH AT BEDTIME MAXIMUM DAILY DOSE = 1 TAKE ONE TABLET BY MOUTH AT BEDTIME MAXI MUM DAILY DOSE = 1 SOLD: 07/02/2020 [facility] 10 mg 04/08/2020 12:00:00 AM EST tablet 30 TAKE ONE TABLET BY MOUTH AT BEDTIME MAXIMUM DAILY DOSE = 1 TAKE ONE TABLET BY MOUTH AT BEDTIME MAXI MUM DAILY DOSE = 1 SOLD: 06/05/2020 [facility] 10 mg 04/08/2020 12:00:00 AM EST tablet 30 TAKE ONE TABLET BY MOUTH AT BEDTIME MAXIMUM DAILY DOSE = 1 TAKE ONE TABLET BY MOUTH AT BEDTIME MAXI MUM DAILY DOSE = 1 SOLD: 05/07/2020 [facility] 150 mg 03/14/2020 12:00:00 AM EST tablet 1 TAKE ONE TABLET BY MOUTH ONCE TAKE ONE TABLET BY MOUTH ONCE SOLD: 03/14/2020 [facility] 30 mg 03/12/2020 12:00:00 AM EST tablet 60 TAKE ONE TABLET BY MOUTH TWICE A DAY TAKE ONE TABLET BY MOUTH TWICE A DAY SOLD: 04/30/2020 [facility] 30 mg 03/12/2020 12:00:00 AM EST tablet 60 TAKE ONE TABLET BY MOUTH TWICE A DAY TAKE ONE TABLET BY MOUTH TWICE A DAY SOLD: 03/12/2020 [facility] 30 mg 03/12/2020 12:00:00 AM EST tablet 60 TAKE ONE TABLET BY MOUTH TWICE A DAY TAKE ONE TABLET BY MOUTH TWICE A DAY SOLD: 04/05/2020 [facility] Fluconazole 150 MG Oral Tablet Fluconazole 01/23/2020 12:00:00 AM EDT ORAL completed [facility] ([facility], ) 150 mg 01/23/2020 12:00:00 AM EDT tablet 2 TAKE ONE TABLET BY MOUTH ONCE, REPEAT IN 2 DAYS IF THRUSH PERSISTENT TAKE ONE TABLET BY MOUTH ONCE, REPEAT IN 2 DAYS IF THRUSH PERSISTENT SOLD: 01/24/2020 [facility] Trelegy Ellipta Trelegy Ellipta 01/17/2020 12:00:00 AM EDT active [facility] ([facility], ) 10 mg 01/09/2020 12:00:00 AM EDT tablet 30 TAKE ONE TABLET BY MOUTH AT BEDTIME , MAXIMUM DAILY DOSE = 1 TABLET TAKE ONE TABLET BY MOUTH AT BEDTIME , MAXIMUM DAILY DOSE = 1 TABLET SOLD: 01/09/2020 [facility] 10 mg 01/09/2020 12:00:00 AM EDT tablet 30 TAKE ONE TABLET BY MOUTH AT BEDTIME , MAXIMUM DAILY DOSE = 1 TABLET TAKE ONE TABLET BY MOUTH AT BEDTIME , MAXIMUM DAILY DOSE = 1 TABLET SOLD: 03/07/2020 [facility] 10 mg 01/09/2020 12:00:00 AM EDT tablet 30 TAKE ONE TABLET BY MOUTH AT BEDTIME , MAXIMUM DAILY DOSE = 1 TABLET TAKE ONE TABLET BY MOUTH AT BEDTIME , MAXIMUM DAILY DOSE = 1 TABLET SOLD: 02/08/2020 [facility] 30 mg 01/05/2020 12:00:00 AM EDT tablet 30 TAKE ONE TABLET BY MOUTH EVERY DAY AT BEDTIME TAKE ONE TABLET BY MOUTH EVERY DAY AT BEDTIME SOLD: 01/30/2020 [facility] 30 mg 01/05/2020 12:00:00 AM EDT tablet 30 TAKE ONE TABLET BY MOUTH EVERY DAY AT BEDTIME TAKE ONE TABLET BY MOUTH EVERY DAY AT BEDTIME SOLD: 06/12/2020 [facility] 30 mg 01/05/2020 12:00:00 AM EDT tablet 30 TAKE ONE TABLET BY MOUTH EVERY DAY AT BEDTIME TAKE ONE TABLET BY MOUTH EVERY DAY AT BEDTIME SOLD: 07/06/2020 [facility] 30 mg 01/05/2020 12:00:00 AM EDT tablet 30 TAKE ONE TABLET BY MOUTH EVERY DAY AT BEDTIME TAKE ONE TABLET BY MOUTH EVERY DAY AT BEDTIME SOLD: 01/05/2020 [facility] 30 mg 01/05/2020 12:00:00 AM EDT tablet 30 TAKE ONE TABLET BY MOUTH EVERY DAY AT BEDTIME TAKE ONE TABLET BY MOUTH EVERY DAY AT BEDTIME SOLD: 05/19/2020 [facility] 30 mg 01/05/2020 12:00:00 AM EDT tablet 30 TAKE ONE TABLET BY MOUTH EVERY DAY AT BEDTIME TAKE ONE TABLET BY MOUTH EVERY DAY AT BEDTIME SOLD: 02/25/2020 [facility] 4 mg 12/11/2019 12:00:00 AM EDT tablets,dose pack 21 USE DIRECTED USE DIRECTED SOLD: 12/11/2019 [facility] 250 mg 12/11/2019 12:00:00 AM EDT tablet 4 TAKE ONE TABLET BY MOUTH EVERY DAY AT 6AM TAKE ONE TABLET BY MOUTH EVERY DAY AT 6AM SOLD: 12/11/2019 [facility] 50 mg 10/27/2019 12:00:00 AM EDT tablet 30 TAKE ONE TABLET BY MOUTH EVERY DAY TAKE ONE TABLET BY MOUTH EVERY DAY SOLD: 01/02/2020 [facility] 10 mg 10/08/2019 12:00:00 AM EDT tablet 30 TAKE ONE TABLET BY MOUTH EVERY DAY AT BEDTIME, MAXIMUM DAILY DOSE = ONE TABLET TAKE ONE TABLET BY MOUTH EVERY DAY AT BEDTIME, MAXIMUM DAILY DOSE = ONE TABLET SOLD: 12/11/2019 [facility] Esomeprazole 40 MG Delayed Release Oral Capsule ESOMEPRAZOLE MAGNESIUM 08/18/2019 12:00:00 AM EDT capsule,delayed release(DR/EC) 30 TAKE ONE CAPSULE BY MOUTH EVERY DAY TAKE ONE CAPSULE BY MOUTH EVERY DAY SOLD: 06/25/2020 [facility] Esomeprazole 40 MG Delayed Release Oral Capsule ESOMEPRAZOLE MAGNESIUM 08/18/2019 12:00:00 AM EDT capsule,delayed release(DR/EC) 30 TAKE ONE CAPSULE BY MOUTH EVERY DAY TAKE ONE CAPSULE BY MOUTH EVERY DAY SOLD: 12/24/2019 [facility] Esomeprazole 40 MG Delayed Release Oral Capsule ESOMEPRAZOLE MAGNESIUM 08/18/2019 12:00:00 AM EDT capsule,delayed release(DR/EC) 30 TAKE ONE CAPSULE BY MOUTH EVERY DAY TAKE ONE CAPSULE BY MOUTH EVERY DAY SOLD: 03/24/2020 [facility] Esomeprazole 40 MG Delayed Release Oral Capsule ESOMEPRAZOLE MAGNESIUM 08/18/2019 12:00:00 AM EDT capsule,delayed release(DR/EC) 30 TAKE ONE CAPSULE BY MOUTH EVERY DAY TAKE ONE CAPSULE BY MOUTH EVERY DAY SOLD: 05/24/2020 [facility] Esomeprazole 40 MG Delayed Release Oral Capsule ESOMEPRAZOLE MAGNESIUM 08/18/2019 12:00:00 AM EDT capsule,delayed release(DR/EC) 30 TAKE ONE CAPSULE BY MOUTH EVERY DAY TAKE ONE CAPSULE BY MOUTH EVERY DAY SOLD: 02/19/2020 [facility] Esomeprazole 40 MG Delayed Release Oral Capsule ESOMEPRAZOLE MAGNESIUM 08/18/2019 12:00:00 AM EDT capsule,delayed release(DR/EC) 30 TAKE ONE CAPSULE BY MOUTH EVERY DAY TAKE ONE CAPSULE BY MOUTH EVERY DAY SOLD: 04/25/2020 [facility] Esomeprazole 40 MG Delayed Release Oral Capsule ESOMEPRAZOLE MAGNESIUM 08/18/2019 12:00:00 AM EDT capsule,delayed release(DR/EC) 30 TAKE ONE CAPSULE BY MOUTH EVERY DAY TAKE ONE CAPSULE BY MOUTH EVERY DAY SOLD: 01/21/2020 [facility] 40 mg 08/18/2019 12:00:00 AM EDT capsule,delayed release (DR/EC) 30 TAKE ONE CAPSULE BY MOUTH EVERY DAY TAKE ONE CAPSULE BY MOUTH EVERY DAY SOLD: 07/25/2020 [facility] 150 mg 08/14/2019 12:00:00 AM EDT tablet 45 TAKE ONE-HALF TABLET BY MOUTH EVERY DAY TAKE ONE-HALF TABLET BY MOUTH EVERY DAY SOLD: 02/18/2020 [facility] 150 mg 08/14/2019 12:00:00 AM EDT tablet 45 TAKE ONE-HALF TABLET BY MOUTH EVERY DAY TAKE ONE-HALF TABLET BY MOUTH EVERY DAY SOLD: 05/24/2020 [facility] 30 mg 2019 12:00:00 AM EDT tablet 30 TAKE ONE TABLET BY MOUTH AT BEDTIME TAKE ONE TABLET BY MOUTH AT BEDTIME SOLD: 12/13/2019 [facility] 2.5-2.5 mcg/actuation 06/29/2019 12:00:00 AM EDT mist 4 INHALE 2 PUFFS BY MOUTH ONCE DAILY INHALE 2 PUFFS BY MOUTH ONCE DAILY SOLD: 12/11/2019 [facility] Insurance Providers Payer name Policy type / Coverage type Policy ID Covered republican ID Covered republican's relationship to gonzales Policy Gonzales Plan Information [facility] Part B [id number] Self R [id number] [facility] Part B [id number] Self R [id number] [facility] Part B [id number] Self R [id number] [facility] Part B [id number] Self R [id number] [facility] [employer]EE PRO[employer] [id number] SP [id number] [facility] [id number] SP [id number] [facility] [id number] SP [id number] [facility] [id number] SP [id number] MVP Preferred (Hmo) Health Maintenance Organization (HMO) [id number] Self [id number] [facility] [employer] [id number] SP [id number] [facility] [employer] [id number] SP [id number] [facility] [employer] [id number] SP [id number] [facility] [id number] SP [id number] [facility] [employer] [id number] SP [id number] [facility] FEP BS [id number] [facility] [place] [id number] Self [id number] [facility] [place] [id number] Self [id number] BS Fed Plan Commercial [id number] Self [id number] BS Fed Plan Commercial [id number] Self [id number] BS Fed Plan Commercial [id number] Self [id number] [facility] [employer] [id number] Self [id number] BS Fed Plan Commercial [id number] Self [id number] [facility] [employer] [id number] Self [id number] [facility] [employer] [id number] Self [id number] [facility] [employer] Commercial [id number] Self [id number] BLUE CROSS BLUE [facility] FEDERAL -O/P [id number] 18 [id number] [facility] [employer] Commercial [id number] Self [id number] BS Fed Plan Commercial [id number] Self [id number] BS Fed Plan Commercial [id number] Self [id number] BS Fed Plan Commercial [id number] Self [id number] MEDICARE COMPLETE [id number] SP [id number] MEDICARE COMPLETE [id number] SP [id number] MEDICARE [id number] SP [id number] [facility] [place] [id number] 18 [id number] UN MEDICARE COMPLETE - O/P [id number] 18 [id number] MEDICARE COMPLETE[facility] O [id number] S [id number] [place] [id number] 18 [id number] [facility] MEDICARE PART A [facility] [id number] 18 [id number] [place] D[place] [id number] 18 [id number] [facility] [id number] SP [id number] [facility] [id number] SP [id number] MEDICARE [id number] SP [id number] [facility] [id number] SP [id number] [facility] [id number] SP [id number] BS [place] [facility] FEDERAL B [id number] S [id number] Problems, Conditions, and Diagnoses Code Display Name Description Problem Type Effective Dates Data Source(s) S60993 Nicotine dependence, cigarettes, uncompl icated Nicotine dependence, cigarettes, uncomplicated Diagnosis 08/21/2020 09:45:00 AM [facility] H2511 Age-related nuclear cataract, right eye Age-related nuclear cataract, right eye Diagnosis 08/21/2020 09:45:00 AM [facility] 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 Diagnosis 08/21/2020 09:45:00 AM T [facility] Q75884 Encounter for preprocedural laboratory e xamination Encounter for preprocedural laboratory examination Diagnosis 08/16/2020 08:50:00 AM [facility] Z1152 ENCOUNTER FOR SCREENING FOR COVID-19 ENCOUNTER F OR SCREENING FOR COVID-19 Diagnosis 08/16/2020 08:50:00 AM [facility] R99 Ill-defined and unknown cause of mortali ty Ill-defined and unknown cause of mortality Diagnosis 08/03/2020 01:26:00 PM [facility] S18974 Encounter for other preprocedural examin ation Encounter for other preprocedural examination Diagnosis 07/28/2020 10:43:00 AM [facility] H2512 Age-related nuclear cataract, left eye A ge-related nuclear cataract, left eye Diagnosis 07/17/2020 06:00:00 AM [facility] Z86953 Other terminologist (current) drug therapy O ther usp (current) drug therapy Diagnosis 05/15/2020 12:57:00 PM [facility] E7800 Pure hypercholesterolemia, unspecified P ure hypercholesterolemia, unspecified Diagnosis 05/15/2020 12:57:00 PM [facility] 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 B enign neoplasm of right adrenal gland Diagnosis 05/15/2020 12:57:00 PM [facility] E069 Thyroiditis, unspecified Thyroiditis, unspecified Diag nosis 05/15/2020 12:57:00 PM [facility] I10 Essential (primary) hypertension Essential (primary) h ypertension Diagnosis 05/15/2020 12:57:00 PM [facility] E1165 Type 2 diabetes mellitus with hyperglyce cely Type 2 diabetes mellitus with hyperglycemia Diagnosis 05/15/2020 12:57:00 PM [facility] F331 Major depressive disorder, recurrent, mo derate Major depressive disorder, recurrent, moderate Diagnosis 05/15/2020 12:57:00 PM [facility] G4700 Insomnia, unspecified Insomnia, unspecified Diagnosis 05/15/2020 12:57:00 PM [facility] J209 Acute bronchitis, unspecified Acute bronchitis, unspec ified Diagnosis 05/15/2020 12:57:00 PM [facility] F41.9 Anxiety state Anxiety state Problem 02/13/2020 12:00:00 AM EST [facility] ([facility]) R91.1 Solitary nodule of lung Solitary nodule of lung Proble m 02/13/2020 12:00:00 AM EST [facility] ([facility]) D48.5 Neoplasm of uncertain behavior of skin N eoplasm of uncertain behavior of skin Problem 02/13/2020 12:00:00 AM EST [facility] ([facility]) 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 Problem 02/13/2020 12:00 :00 AM EST [facility] ([facility]) Z79.899 Taking medication Taking medication Problem 02/13/2020 12:00:00 AM EST [facility] ([facility]) 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 Iatrogenic thyroiditis Problem 02/13/2020 12:00:00 AM EST [facility] ([facility]) G47.00 Insomnia Insomnia Problem 02/13/2020 12:00:00 AM ES T [facility] ([facility]) I89.0 Lymphedema Lymphedema Problem 02/13/2020 12:00:00 AM ES T [facility] ([facility]) D35.01 Benign neoplasm of adrenal gland Benign neoplasm of adrenal gland Problem 02/13/2020 12:00:00 AM EST [facility] ([facility]) E05.80 Thyrotoxicosis Thyrotoxicosis Problem 02/13/2020 12:00: 00 AM EST [facility] ([facility]) E06.9 Thyroiditis Thyroiditis Problem 02/13/2020 12:00:00 AM EST [facility] ([facility]) I10 Essential hypertension Essential hypertension Problem 02/13/2020 12:00:00 AM EST [facility] ([facility]) E11.65 Type II diabetes mellitus uncontrolled T ype II diabetes mellitus uncontrolled Problem 02/13/2020 12:00:00 AM EST [facility] ([facility]) Surgeries/Procedures Procedure Description Date Indications Data Source(s) Spirometry 01/21/2021 12:00:00 AM EDT [facility] ([facility], ) OFFICE OUTPATIENT VISIT 25 MINUTES 01/21/2021 12:00:00 AM EDT [facility] ([facility], ) OFFICE OUTPATIENT VISIT 25 MINUTES 12/08/2020 12:00:00 AM EDT [facility] ([facility]) OFFICE OUTPATIENT VISIT 15 MINUTES 11/14/2020 12:00:00 AM EDT [facility] ([facility]) LARYNGOSCOPY FLEXIBLE FIBEROPTIC DIAGNOSTIC 10/30/2020 12:00:00 AM EDT [facility] ([facility], ) OFFICE OUTPATIENT VISIT 15 MINUTES 10/30/2020 12:00:00 AM EDT [facility] ([facility], ) OFFICE OUTPATIENT VISIT 25 MINUTES 10/02/2020 12:00:00 AM EDT [facility] ([facility] ) OFFICE OUTPATIENT VISIT 25 MINUTES 09/09/2020 12:00:00 AM EDT [facility] ([facility]) OFFICE OUTPATIENT VISIT 25 MINUTES 07/10/2020 12:00:00 AM EDT [facility] ([facility]) OFFICE OUTPATIENT VISIT 25 MINUTES 06/02/2020 12:00:00 AM EST [facility] ([facility]) OFFICE OUTPATIENT VISIT 10 MINUTES 05/21/2020 12:00:00 AM EST [facility] ([facility]) OFFICE OUTPATIENT VISIT 15 MINUTES 05/19/2020 12:00:00 AM EST [facility] ([facility]) OFFICE OUTPATIENT VISIT 25 MINUTES 05/15/2020 12:00:00 AM EST [facility] ([facility]) LARYNGOSCOPY FLEXIBLE FIBEROPTIC DIAGNOSTIC 02/19/2020 12:00:00 AM EST [facility] ([facility]) Brief Emotional/Behav Assessment W/ Scoring Doc Per Standard Inst 02/13/2020 12:00:00 AM EST [facility] ([facility]) Admin Patient Focused Health Risk Assessment Instrument 02/13/2020 12:00:00 AM EST [facility] Results ID Date Data Source [id number] 01/04/2021 05:55:00 PM EDT [facility] ([facility]) Name Value Range Interpretation Code Description Data Vilma rce(s) Supporting Document(s) Hemoglobin 11.0 g/dL 12.0-15.5 Below low normal [facility]) White Blood Count 4.7 10 4.0-10.0 Normal (applies to non-numeri c results) [facility] ([facility]) Red Blood Count 4.34 10 4.00-5.40 Normal (applies to non-numeric results) [facility] ([facility]) Hematocrit 36.7 % 36.0-47.0 Normal (applies to non-numeric resul ts) [facility] ([facility]) Mean Corpuscular Hemoglobin 25.3 pg 27.0-33.0 Below low normal [facility] ([facility]) Mean Corpuscular Volume 84.6 fl 80.0-96.0 Normal ( applies to non-numeric results) [facility] ([facility]) Mean Corpuscular HGB Conc 30.0 g/dL 32.0-36.5 Below low normal [facility] ([facility]) Red Cell Distribution Width 14.6 % 11.5-14.5 Above high normal [facility] ([facility]) Platelet Count, Automated 238 10 150-450 Normal (applies to non-numeric results) [facility] ([facility]) Neutrophils % 53.2 % 36.0-66.0 Normal (applies to non-numeric re sults) [facility] ([facility]) Lymph % 36.1 % 24.0-44.0 Normal (applies to non-numeric resul ts) [facility] ([facility]) Eos % 1.3 % 0.0-3.0 Normal (applies to non-numeric resul ts) [facility] ([facility]) Barber % 8.6 % 2.0-8.0 Above high normal [facility] ([facility]) Nucleated Red Blood Cell % 0.0 % 0-0 Normal (applies to n on-numeric results) [facility] ([facility]) Immature Granulocyte % 0.2 % 0-3.0 Normal (applies to non-n umeric results) [facility] ([facility]) Baso % 0.6 % 0.0-1.0 Normal (applies to non-numeric resul ts) [facility] ([facility]) Lymph # 1.7 10 1.5-5.0 Normal (applies to non-numeric resul ts) [facility] ([facility]) Neutrophils # 2.5 10 1.5-8.5 Normal (applies to non-numeric re sults) [facility] ([facility]) Barber # 0.4 10 0.0-0.8 Normal (applies to non-numeric resul ts) [facility] ([facility]) Baso # 0.0 10 0.0-0.2 Normal (applies to non-numeric resul ts) [facility] ([facility]) Eos # 0.1 10 0.0-0.5 Normal (applies to non-numeric resul ts) [facility] ([facility]) ID Date Data Source [id number] 01/04/2021 05:55:00 PM EDT [facility] ([facility]) Name Value Range Interpretation Code Description Data Vilma rce(s) Supporting Document(s) Glucose, Fasting 100 mg/dL 70-100 Normal (applies to non-numeric results) [facility] ([facility]) Creatinine For GFR 1.14 mg/dL 0.55-1.30 Normal (applies to non -numeric results) [facility] ([facility]) Blood Urea Nitrogen 29 mg/dL 7-18 Above high normal [facility] ([facility]) Sodium Level 135 meq/L 136-145 Below low normal [facility] ([facility]) Glomerular Filtration Rate 50.8 Normal (applies to n on-numeric results) [facility] ([facility]) <content>Units are mL/min/1.73 m2</content>
<content></content>
<content>Chronic Kidney Disease Staging per NKF:</content>
<content></content>
<content>Stage I & II GFR >=60 Normal to Mildly Decreased</content>
<content>Stage III GFR 30- 59 Moderately Decreased</content>
<content>Stage IV GFR 15-29 Severely Decreased</content>
<content>Stage V GFR <15 Very Little GFR Left</content>
<content>ESRD GFR <15 on LOGGING EQUIPMENT OPERATOR</content>
<content></content> Chloride Level 98 meq/L 98-107 Normal (applies to non-numeric r esults) [facility] ([facility]) Carbon Dioxide Level 36 meq/L 21-32 Above high normal [facility] ([facility]) Potassium Serum 4.5 meq/L 3.5-5.1 Normal (applies to non-numeric results) [facility] ([facility]) Calcium Level 8.0 mg/dL 8.8-10.2 Below low normal [facility] ([facility]) Anion Gap 1 meq/L 8-16 Below low normal [facility] ( [facility]) ID Date Data Source [id number] 01/04/2021 05:55:00 PM EDT [facility] ([facility]) Name Value Range Interpretation Code Description Data Vilma rce(s) Supporting Document(s) Ast/Sgot 20 U/L 7-37 Normal (applies to non-numeric resul ts) [facility] ([facility]) Alt/SGPT 37 U/L 12-78 Normal (applies to non-numeric resul ts) [facility] Alkaline Phosphatase 139 U/L 45-117 Above high normal [facility] ([facility]) Bilirubin,Direct 0.1 mg/dL 0.0-0.2 Normal (applies to non-numeric results) [facility] ([facility]) Bilirubin,Total 0.4 mg/dL 0.2-1.0 Normal (applies to non-numeric results) [facility]) Albumin 2.8 GM/DL 3.2-5.2 Below low normal [facility]) Total Protein 6.3 GM/DL 6.4-8.2 Below low normal [facility] ([facility]) Albumin/Globulin Ratio 0.8 1.2-2.2 Below low normal [facility] ([facility]) ID Date Data Source [id number] 01/04/2021 05:55:00 PM EDT [facility] ([facility]) Name Value Range Interpretation Code Description Data Vilma rce(s) Supporting Document(s) CK-MB Value Mass 2.1 ng/mL Normal (applies to non-numeric results) [facility] ([facility]) CPK Creatine Phosphokinase 26 U/L 26-192 Maria De Jesus l (applies to non-numeric results) [facility] ([facility]) Troponin I Laboratory test result Normal (applies to non-n umeric results) [facility] ([facility]) <content>Troponin I Reference Interval f or Siemens [place] LOCI:</content>
<content></content>
<content>99th Percentile= 0.00-0.045 ng/ml</content>
<content></content>
<content>Risk Stratification:</content>
<content><= 0.10 ng/ml Decreased Risk for Adverse Clinical</content>
<content>Events.</content>
<content>0.10-1.50 ng/ml Increased Risk for Adverse Clinical</content>
<content>Events. Evaluation of additional</content>
<content>criterion and/or repeat testing in 2-6</content>
<content>hours is suggested to rule out myocardial</content>
<content>damage.</content>
<content>>= 1.50 ng/ml Indicative of Myocardial Injury.</content>
<content></content> MB/CK Relative Index 8.08 Above high normal [facility] ([facility]) <content>DIAGNOSIS CRITERIA</content>
<content>MMB ng/ml Relative Index (RI)</content>
<content>NON-AMI < or = 5 N/A</content>
<content>MCDONOUGH ZONE > 5 < or = 4</content>
<content>AMI > 5 > 4</content>
<content></content> ID Date Data Source [id number] 11/05/2020 12:55:00 PM EDT [facility] Name Value Range Interpretation Code Description Data Vilma rce(s) Supporting Document(s) Estimated Average Glucose 126 mg/dL 60-110 Above high normal [facility] ([facility]) Hemoglobin A1c 6.0 % Normal (applies to non-numeric r esults) [facility] <content>REFERENCE RANGES:</content><br/ ><content></content>
<content><=5.6% NORMAL</content>
<content>5.7-6.4% SUGGESTS IMPAIRED GLUCOSE METABOLISM/PREDIABETIC</content>
<content>>= 6.5% ABNORMAL</content>
<content></content> ID Date Data Source [id number] 11/05/2020 12:55:00 PM EDT [facility] ([facility]) Name Value Range Interpretation Code Description Data Vilma rce(s) Supporting Document(s) Glucose, Fasting 105 mg/dL 70-100 Above high normal [facility] ([facility]) Glomerular Filtration Rate Laboratory test result Normal (applies to non- numeric results) [facility] ([facility]) <content>Units are mL/min/1.73 m2</content>
<content></content>
<content>Chronic Kidney Disease Staging per NKF:</content>
<content></content>
<content>Stage I & II GFR >=60 Normal to Mildly Decreased</content>
<content>Stage III GFR 30- 59 Moderately Decreased</content>
<content>Stage IV GFR 15-29 Severely Decreased</content>
<content>Stage V GFR <15 Very Little GFR Left</content>
<content>ESRD GFR <15 on LOGGING EQUIPMENT OPERATOR</content>
<content></content> Creatinine For GFR 0.93 mg/dL 0.55-1.30 Normal (applies to non -numeric results) [facility] ([facility]) Blood Urea Nitrogen 22 mg/dL 7-18 Above high normal [facility] ([facility]) Sodium Level 140 meq/L 136-145 Normal (applies to non-numeric res ults) [facility] ([facility]) Potassium Serum 4.8 meq/L 3.5-5.1 Normal (applies to non-numeric results) [facility] ([facility]) Carbon Dioxide Level 36 meq/L 21-32 Above high normal [facility] ([facility]) Anion Gap 4 meq/L 8-16 Below low normal [facility] ( [facility]) Chloride Level 100 meq/L 98-107 Normal (applies to non-numeric r esults) [facility] ([facility]) Alt/SGPT 15 U/L 12-78 Normal (applies to non-numeric resul ts) [facility] ([facility]) Calcium Level 8.7 mg/dL 8.8-10.2 Below low normal [facility] ([facility]) Ast/Sgot 5 U/L 7-37 Below low normal [facility] ([facility]) Bilirubin,Total 0.3 mg/dL 0.2-1.0 Normal (applies to non-numeric results) [facility] ([facility]) Alkaline Phosphatase 110 U/L 45-117 Normal (applies to non-num giselle results) [facility] ([facility]) Total Protein 6.6 GM/DL 6.4-8.2 Normal (applies to non-numeric re sults) [facility] ([facility]) Albumin 3.5 GM/DL 3.2-5.2 Normal (applies to non-numeric resul ts) [facility] ([facility]) Albumin/Globulin Ratio 1.1 1.2-2.2 Below low normal [facility] ([facility]) ID Date Data Source [id number] 11/05/2020 12:55:00 PM EDT [facility] ([facility]) Name Value Range Interpretation Code Description Data Vilma rce(s) Supporting Document(s) Triglycerides Level 73 mg/dL Normal (applies to non-nume christopher results) [facility] ([facility]) Cholesterol Level 212 mg/dL Above high normal [facility] ([facility]) HDL Cholesterol 52 mg/dL Normal (applies to non-numeric results) [facility] ([facility]) LDL Cholesterol 145 mg/dL Above high normal [facility] ([facility]) Non-HDL-C 160 mg/dL Normal (applies to non-numeric resul ts) [facility] ([facility]) Cholesterol Risk Ratio 4.076 Normal (applies to non-n umeric results) [facility] ([facility]) ID Date Data Source [id number] 11/05/2020 12:55:00 PM EDT [facility] ([facility]) Name Value Range Interpretation Code Description Data Vilma rce(s) Supporting Document(s) Thyrotropin [Units/volume] in Serum or Plasma 0.927 uIU/ML 0. 358-3.740 Normal (applies to non-numeric results) [facility] ([facility]) ID Date Data Source [id number] 11/05/2020 12:55:00 PM EDT [facility] ([facility]) Name Value Range Interpretation Code Description Data Vilma rce(s) Supporting Document(s) Thyroid Stimulating Hormone 1.010 uIU/ML 0.358-3.740 Norm al (applies to non- numeric results) [facility] ([facility]) Free T4 1.22 ng/dL 0.76-1.46 Normal (applies to non-numeric resul ts) [facility] ([facility]) ID Date Data Source [id number] 11/05/2020 12:55:00 PM EDT [facility] ([facility]) Name Value Range Interpretation Code Description Data Vilma rce(s) Supporting Document(s) Red Blood Count 5.32 10 4.00-5.40 Normal (applies to non-numeric results) [facility] ([facility]) White Blood Count 5.4 10 4.0-10.0 Normal (applies to non-numeri c results) [facility] ([facility]) Hemoglobin 13.5 g/dL 12.0-15.5 Normal (applies to non-numeric resul ts) [facility] ([facility]) Hematocrit 46.0 % 36.0-47.0 Normal (applies to non-numeric resul ts) [facility] ([facility]) Mean Corpuscular Volume 86.5 fl 80.0-96.0 Normal ( applies to non-numeric results) [facility] Mean Corpuscular Hemoglobin 25.4 pg 27.0-33.0 Below low normal [facility] ([facility]) Mean Corpuscular HGB Conc 29.3 g/dL 32.0-36.5 Below low normal [facility] Neutrophils % 56.0 % 36.0-66.0 Normal (applies to non-numeric re sults) [facility] ([facility]) Red Cell Distribution Width 15.4 % 11.5-14.5 Above high normal [facility] ([facility]) Platelet Count, Automated 186 10 150-450 Normal (applies to non-numeric results) [facility] ([facility]) Lymph % 34.4 % 24.0-44.0 Normal (applies to non-numeric resul ts) [facility] ([facility]) Barber % 7.3 % 2.0-8.0 Normal (applies to non-numeric resul ts) [facility] ([facility]) Eos % 1.7 % 0.0-3.0 Normal (applies to non-numeric resul ts) [facility] ([facility]) Baso % 0.6 % 0.0-1.0 Normal (applies to non-numeric resul ts) [facility] ([facility]) Immature Granulocyte % 0.0 % 0-3.0 Normal (applies to non-n umeric results) [facility] ([facility]) Nucleated Red Blood Cell % 0.0 % 0-0 Normal (applies to n on-numeric results) [facility] ([facility]) Neutrophils # 3.0 10 1.5-8.5 Normal (applies to non-numeric re sults) [facility] ([facility]) Lymph # 1.8 10 1.5-5.0 Normal (applies to non-numeric resul ts) [facility] ([facility]) Eos # 0.1 10 0.0-0.5 Normal (applies to non-numeric resul ts) [facility] ([facility]) Barber # 0.4 10 0.0-0.8 Normal (applies to non-numeric resul ts) [facility] ([facility]) Baso # 0.0 10 0.0-0.2 Normal (applies to non-numeric resul ts) [facility] ([facility]) ID Date Data Source [id number] 11/05/2020 12:55:00 PM EDT [facility] ([facility]) Name Value Range Interpretation Code Description Data Vilma rce(s) Supporting Document(s) Thyroid Stimulating Hormone 1.010 uIU/ML 0.358-3.740 [facility] ([facility]) Free T4 1.22 ng/dL 0.76-1.46 [facility] ([facility]) ID Date Data Source [id number] 09/21/2020 03:17:00 AM EDT [facility] Name Value Range Interpretation Code Description Data Vilma rce(s) Supporting Document(s) SARS-CoV-2 (COVID 19) NEGATIVE - SARS-CoV-2 (COVID19) [facility] This lab was ordered by [facility] a nd reported by [facility]. ID Date Data Source [id number] 08/25/2020 09:13:00 [place] [address] OPERATIVE SUMMARYNAME: JUAN Pablo DATE OF : 1955TTENDING PHYS: Casandra Jackson Jr., MD [facility] [id number] DATE: 08/21/20 MR#: [id number] OF PROCEDURE: 08/21/2020REOPERATIVE DIAGNOSIS: Visually significant cataract, right eye.POSTOPERATIVE DIAGNOSIS: Phacoemulsification cataract extraction with intraocular lensimplantation, right eye.SURGEON: ARIN SuarezROCEDURE NOTE: After informed consent was obtained and a long discussion regardingreasonable expectations for visual recovery, the patient was brought to the surgical suite where thepatient was laid supine on the operating table. Blood pressure cuff, EKG, pulse oximeter, and nasalcannula were attached and monitored by the anesthesiology department. The patient was thenprepped and draped in a manner consistent with ophthalmic surgery to the eye. Lid speculum wasplaced. The remainder of the procedure was done with the aid of an operating microscope.Paracentesis blade was used to create a paracentesis site at the 12 o'clock position. 1% NPFLidocaine was injected intracamerally. Viscoelastic on a cannula was then used to reform theanterior chamber. Keratome, using a clear corneal technique, was used to create a tunneled entryinto the eye. Cystotome on Viscoelastic material was then used to begin a capsulorrhexis. Utrataforceps w ere then introduced, and the remainder of the capsulorrhexis was completed withoutdifficulty. BSS on a cannula was then used to hydro-dissect and hydro- delineate the nucleus andepi-nucleus respectively. Phacoemulsification unit was then introduced, and using a ojvjee-eah-govruyi technique, the nucleus and epi- nucleus were removed without difficulty. Automatedirrigation aspiration was then introduced into the anterior chamber, and the remaining corticalremnants were removed. Viscoelastic material on the cannula was then used to reform the capsularbag and the anterior chamber. The appropriate intraocular lens was identified and brought onto thesurgical field. The lens was then loaded into the capsular bag without difficulty. Automatedirrigation aspiration unit was introduced, and remaining Viscoelastic material was removed. Thelens centered well.COMPLICATIONS: None.BLOOD LOSS: Negligible. [address] [place] [address] OPERATIVE SUMMARYNAME: JUAN Pablo DATE OF : 1955TTENDING PHYS: Casandra Jackson Jr., MD DATE: 08/21/20 MR#: [id number]: Casandra Jackson Jr., MD 08/25/20 08:49DT: SSR 08/25/20 09:12DS: Casandra Jackson Jr., MD 09/18/20 11:15 2 Name Value Range Interpretation Code Description Data Vilma rce(s) Supporting Document(s) ID Date Data Source [id number] 07/17/2020 12:16:00 [place] [address] OPERATIVE SUMMARYNAME: JUAN Pablo DATE OF : 1955ENDING PHYS: Casandra Jackson Jr., MD DATE: 07/17/20 MR#: [id number] OF PROCEDURE: 07/17/2020REOPERATIVE DIAGNOSIS: Visually significant cataract, left eye.POSTOPERATIVE DIAGNOSIS: Phacoemulsification cataract extraction with intraocular lensimplantation, left eye.SURGEON: Casandra Jackson MDPROCEDURE NOTE: After informed consent was obtained and a long discussion regardingreasonable expectations for visual recovery, the patient was brought to the surgical suite where thepatient was laid supine on the operating table. Blood pressure cuff, EKG, pulse oximeter, and nasalcannula were attached and monitored by the anesthesiology department. The patient was thenprepped and draped in a manner consistent with ophthalmic surgery to the eye. Lid speculum wasplaced. The remainder of the procedure was done with the aid of an operating microscope.Paracentesis blade was used to create a paracentesis site at the 12 o'clock position. 1% NPFLidocaine was injected intracamerally. Viscoelastic on a cannula was then used to reform theanterior chamber. Keratome, using a clear corneal technique, was used to create a tunneled entryinto the eye. Cystotome on Viscoelastic material was then used to begin a capsulorrhexis. Utrataforceps were then introduced, and the remainder of the capsulorrhexis was completed withoutdifficulty. BSS on a cannula was then used to hydro-dissect and hydro- delineate the nucleus andepi-nucleus respectively. Phacoemulsification unit was then introduced, and using a picdok-jax-zmhqwht technique, the nucleus and epi- nucleus were removed without difficulty. Automatedirrigation aspiration was then introduced into the anterior chamber, and the remaining corticalremnants were removed. Viscoelastic material on the cannula was then used to reform the capsularbag and the anterior chamber. The appropriate intraocular lens was identified and brought onto thesurgical field. The lens was then loaded into the capsular bag without difficulty. Automatedirrigation aspiration unit was introduced, and remaining Viscoelastic material was removed. Thelens centered well.COMPLICATIONS: None.BLOOD LOSS: Negligible. [address] [place] [address] OPERATIVE SUMMARYNAME: JUAN Pablo DATE OF : 4ATTENDING PHYS: Casandra Jackson Jr., MD DATE: 07/17/20 MR#: [id number]: Casandra Jackson Jr., MD 07/17/20 11:42DT: MIR 07/17/20 12:16DS: Casandra Jackson Jr., MD 09/18/20 11:15 2 Name Value Range Interpretation Code Description Data Vilma rce(s) Supporting Document(s) ID Date Data Source [id number] 08/16/2020 08:40:00 AM EDT [facility] Name Value Range Interpretation Code Description Data Vilma rce(s) Supporting Document(s) SARS coronavirus 2 RNA Not Detected [facility] This lab was ordered by [facility] antonio and reported by [employer]. ID Date Data Source [id number] 08/17/2020 01:27:00 PM EDT [facility] Name Value Range Interpretation Code Description Data Vilma rce(s) Supporting Document(s) SARS-CoV-2, GUSTAVO Not Detected Not Detected [facility] This nucleic acid amplification test was developed and its performancecharacteristics determined by [facility]. Nucleic acidamplification tests include RT-PCR and TMA. This test has not beenFDA cleared or approved. This test has been authorized by FDA underan Emergency Use Authorization (EUA). This test is only authorizedfor the duration of time the declaration that circumstances existjustifying the authorization of the emergency use of in vitrodiagnostic tests for detection of SARS-CoV-2 virus and/or diagnosisof COVID-19 infection under section 564(b)(1) of the Act, 21 U.S.C.360bbb-3(b) (1), unless the authorization is terminated or revokedsooner.When diagnostic testing is negative, the possibility of a falsenegative result should be considered in the context of a patient'srecent exposures and the presence of clinical signs and symptomsconsistent with COVID- 19. An individual without symptoms of COVID-19and who is not shedding SARS-CoV-2 virus would expect to have anegative (not detected) result in this assay. SARS-CoV-2, GUSTAVO 2 DAY TAT Performed [facility] ID Date Data Source [id number] 07/28/2020 09:00:00 AM EDT [facility] Name Value Range Interpretation Code Description Data Vilma rce(s) Supporting Document(s) SARS coronavirus 2 RNA Not Detected [facility] This lab was ordered by [facility] Rashid alvarez and reported by [facility]. ID Date Data Source [id number] 07/29/2020 09:28:00 PM EDT [facility] Name Value Range Interpretation Code Description Data Vilma rce(s) Supporting Document(s) SARS-CoV-2, GUSTAVO Not Detected Not Detected [facility] This nucleic acid amplification test was developed and its performancecharacteristics determined by [facility]. Nucleic acidamplification tests include RT-PCR and TMA. This test has not beenFDA cleared or approved. This test has been authorized by FDA underan Emergency Use Authorization (EUA). This test is only authorizedfor the duration of time the declaration that circumstances existjustifying the authorization of the emergency use of in vitrodiagnostic tests for detection of SARS-CoV-2 virus and/or diagnosisof COVID-19 infection under section 564(b)(1) of the Act, 21 U.S.C.360bbb-3(b) (1), unless the authorization is terminated or revokedsooner.When diagnostic testing is negative, the possibility of a falsenegative result should be considered in the context of a patient'srecent exposures and the presence of clinical signs and symptomsconsistent with COVID- 19. An individual without symptoms of COVID-19and who is not shedding SARS-CoV-2 virus would expect to have anegative (not detected) result in this assay. SARS-CoV-2, GUSTAVO 2 DAY TAT Performed [facility] ID Date Data Source [id number] 07/12/2020 08:18:00 AM EDT [facility] Name Value Range Interpretation Code Description Data Vilma rce(s) Supporting Document(s) SARS coronavirus 2 RNA Not Detected [facility] and [facility] by [facility]. ID Date Data Source [id number] 07/14/2020 06:45:00 AM EDT [facility] Name Value Range Interpretation Code Description Data Vilma rce(s) Supporting Document(s) SARS-CoV-2, GUSTAVO Not Detected Not Detected [facility] This nucleic acid amplification test was developed and its performancecharacteristics determined by [facility]. Nucleic acidamplification tests include RT-PCR and TMA. This test has not beenFDA cleared or approved. This test has been authorized by FDA underan Emergency Use Authorization (EUA). This test is only authorizedfor the duration of time the declaration that circumstances existjustifying the authorization of the emergency use of in vitrodiagnostic tests for detection of SARS-CoV-2 virus and/or diagnosisof COVID-19 infection under section 564(b)(1) of the Act, 21 U.S.C.360bbb-3(b) (1), unless the authorization is terminated or revokedsooner.When diagnostic testing is negative, the possibility of a falsenegative result should be considered in the context of a patient'srecent exposures and the presence of clinical signs and symptomsconsistent with COVID- 19. An individual without symptoms of COVID-19and who is not shedding SARS-CoV-2 virus would expect to have anegative (not detected) result in this assay. SARS-CoV-2, GUSTAVO 2 DAY TAT Performed [facility] ID Date Data Source [id number] 07/03/2020 03:31:00 PM EDT [facility] ([facility]) Name Value Range Interpretation Code Description Data Vilma rce(s) Supporting Document(s) Blood Urea Nitrogen 21 mg/dL 7-18 Above high normal [facility] ([facility]) Glucose, Fasting 137 mg/dL 70-100 Above high normal [facility] ([facility]) Creatinine For GFR 1.07 mg/dL 0.55-1.30 Normal (applies to non -numeric results) [facility] ([facility]) Glomerular Filtration Rate 54.8 Normal (applies to n on-numeric results) [facility] ([facility]) <content>Units are mL/min/1.73 m2</content>
<content></content>
<content>Chronic Kidney Disease Staging per NKF:</content>
<content></content>
<content>Stage I & II GFR >=60 Normal to Mildly Decreased</content>
<content>Stage III GFR 30- 59 Moderately Decreased</content>
<content>Stage IV GFR 15-29 Severely Decreased</content>
<content>Stage V GFR <15 Very Little GFR Left</content>
<content>ESRD GFR <15 on LOGGING EQUIPMENT OPERATOR</content>
<content></content> Sodium Level 133 meq/L 136-145 Below low normal [facility] ([facility]) Chloride Level 98 meq/L 98-107 Normal (applies to non-numeric r esults) [facility] ([facility]) Potassium Serum 4.1 meq/L 3.5-5.1 Normal (applies to non-numeric results) [facility] ([facility]) Calcium Level 8.4 mg/dL 8.8-10.2 Below low normal [facility] ([facility]) Anion Gap 2 meq/L 8-16 Below low normal [facility] ( [facility]) Carbon Dioxide Level 33 meq/L 21-32 Above high normal [facility] ([facility]) Ast/Sgot 5 U/L 7-37 Below low normal [facility] ([facility]) Alt/SGPT 8 U/L 12-78 Below low normal [facility] ([facility]) Alkaline Phosphatase 114 U/L 45-117 Normal (applies to non-num giselle results) [facility] ([facility]) Bilirubin,Total 0.2 mg/dL 0.2-1.0 Normal (applies to non-numeric results) [facility] ([facility]) Total Protein 6.7 GM/DL 6.4-8.2 Normal (applies to non-numeric re sults) [facility] ([facility]) Albumin 3.3 GM/DL 3.2-5.2 Normal (applies to non-numeric resul ts) [facility] ([facility]) Albumin/Globulin Ratio 1.0 1.2-2.2 Below low normal [facility] ([facility]) ID Date Data Source [id number] 07/03/2020 03:31:00 PM EDT [facility] ([facility]) Name Value Range Interpretation Code Description Data Vilma rce(s) Supporting Document(s) Red Blood Count 4.92 10 4.00-5.40 Normal (applies to non-numeric results) [facility] ([facility]) White Blood Count 5.9 10 4.0-10.0 Normal (applies to non-numeri c results) [facility] ([facility]) Hemoglobin 12.6 g/dL 12.0-15.5 Normal (applies to non-numeric resul ts) [facility] ([facility]) Hematocrit 40.6 % 36.0-47.0 Normal (applies to non-numeric resul ts) [facility] ([facility]) Mean Corpuscular Volume 82.5 fl 80.0-96.0 Normal ( applies to non-numeric results) [facility] ([facility]) Mean Corpuscular HGB Conc 31.0 g/dL 32.0-36.5 Below low normal [facility] ([facility]) Mean Corpuscular Hemoglobin 25.6 pg 27.0-33.0 Below low normal [facility] ([facility]) Platelet Count, Automated 208 10 150-450 Normal (applies to non-numeric results) [facility] ([facility]) Red Cell Distribution Width 14.6 % 11.5-14.5 Above high normal [facility] ([facility]) Neutrophils % 55.0 % 36.0-66.0 Normal (applies to non-numeric re sults) [facility] ([facility]) Lymph % 37.0 % 24.0-44.0 Normal (applies to non-numeric resul ts) [facility] ([facility]) Barber % 6.3 % 2.0-8.0 Normal (applies to non-numeric resul ts) [facility] ([facility]) Baso % 0.3 % 0.0-1.0 Normal (applies to non-numeric resul ts) [facility] ([facility]) Eos % 1.2 % 0.0-3.0 Normal (applies to non-numeric resul ts) [facility] ([facility]) Immature Granulocyte % 0.2 % 0-3.0 Normal (applies to non-n umeric results) [facility] ([facility]) Nucleated Red Blood Cell % 0.0 % 0-0 Normal (applies to n on-numeric results) [facility] ([facility]) Lymph # 2.2 10 1.5-5.0 Normal (applies to non-numeric resul ts) [facility] ([facility]) Neutrophils # 3.3 10 1.5-8.5 Normal (applies to non-numeric re sults) [facility] ([facility]) Eos # 0.1 10 0.0-0.5 Normal (applies to non-numeric resul ts) [facility] ([facility]) Barber # 0.4 10 0.0-0.8 Normal (applies to non-numeric resul ts) [facility] ([facility]) Baso # 0.0 10 0.0-0.2 Normal (applies to non-numeric resul ts) [facility] ([facility]) ID Date Data Source [id number] 05/01/2020 01:08:00 PM EST [facility] ([facility]) Name Value Range Interpretation Code Description Data Vilma rce(s) Supporting Document(s) Thyroid Stimulating Hormone 0.885 uIU/ML 0.358-3.740 [facility] ([facility]) Free T4 1.21 ng/dL 0.76-1.46 [facility]) ID Date Data Source [id number] 03/26/2020 02:21:00 PM EST [facility] ([facility]) Name Value Range Interpretation Code Description Data Vilma rce(s) Supporting Document(s) Carcinoembryonic Ag [Mass/volume] in Serum or Plasma 3.0 ng/mL Above high normal [facility] ([facility]) THE CEA ASSAY IS PERFORMED ON THE [employer] BY CHEMILUMINESCENCE AND SHOULD NOT BE COMPARED INTERCHANGEABLY WITH OTHER METHODS. IT SHOULD NOT BE USED ALONE A SCREENING TEST OR DIAGNOSIS FOR THE PRESENCE OR ABSENCE OF MALIGNANT DISEASE. PREDICTIONS OF DISEASE RECURRENCE SHOULD NOT BE BASED SOLELY ON VALUES OBTAINED FROM SERIAL PATIENT SERUM VALUES. ID Date Data Source [id number] 03/26/2020 02:21:00 PM EST [facility] ([facility]) Name Value Range Interpretation Code Description Data Vilma rce(s) Supporting Document(s) Glucose, Fasting 97 mg/dL 70-100 Normal (applies to non-numeric results) [facility] ([facility]) Blood Urea Nitrogen 19 mg/dL 7-18 Above high normal [facility] ([facility]) Creatinine For GFR 1.13 mg/dL 0.55-1.30 Normal (applies to non -numeric results) [facility] ([facility]) Glomerular Filtration Rate 51.4 Normal (applies to n on-numeric results) [facility] ([facility]) <content>Units are mL/min/1.73 m2</content>
<content></content>
<content>Chronic Kidney Disease Staging per NKF:</content>
<content></content>
<content>Stage I & II GFR >=60 Normal to Mildly Decreased</content>
<content>Stage III GFR 30- 59 Moderately Decreased</content>
<content>Stage IV GFR 15-29 Severely Decreased</content>
<content>Stage V GFR <15 Very Little GFR Left</content>
<content>ESRD GFR <15 on LOGGING EQUIPMENT OPERATOR</content>
<content></content> Sodium Level 137 meq/L 136-145 Normal (applies to non-numeric res ults) [facility] ([facility]) Chloride Level 102 meq/L 98-107 Normal (applies to non-numeric r esults) [facility] ([facility]) Potassium Serum 4.6 meq/L 3.5-5.1 Normal (applies to non-numeric results) [facility] ([facility]) Carbon Dioxide Level 33 meq/L 21-32 Above high normal [facility] ([facility]) Anion Gap 2 meq/L 8-16 Below low normal [facility] ( [facility]) Calcium Level 9.0 mg/dL 8.8-10.2 Normal (applies to non-numeric re sults) [facility] ([facility]) Ast/Sgot Laboratory test result 7-37 Below low normal [facility] ([facility]) Alt/SGPT 10 U/L 12-78 Below low normal [facility] ( [facility]) Alkaline Phosphatase 125 U/L 45-117 Above high normal [facility] ([facility]) Bilirubin,Total 0.3 mg/dL 0.2-1.0 Normal (applies to non-numeric results) [facility] ([facility]) Total Protein 6.8 GM/DL 6.4-8.2 Normal (applies to non-numeric re sults) [facility] ([facility]) Albumin/Globulin Ratio 0.9 1.2-2.2 Below low normal [facility] ([facility]) Albumin 3.2 GM/DL 3.2-5.2 Normal (applies to non-numeric resul ts) [facility] ([facility]) ID Date Data Source [id number] 03/26/2020 02:21:00 PM EST [facility] ([facility]) Name Value Range Interpretation Code Description Data Vilam rce(s) Supporting Document(s) Red Blood Count 5.15 10 4.00-5.40 Normal (applies to non-numeric results) [facility] ([facility]) White Blood Count 5.5 10 4.0-10.0 Normal (applies to non-numeri c results) [facility] ([facility]) Hemoglobin 13.1 g/dL 12.0-15.5 Normal (applies to non-numeric resul ts) [facility] ([facility]) Hematocrit 42.9 % 36.0-47.0 Normal (applies to non-numeric resul ts) [facility] ([facility]) Mean Corpuscular Volume 83.3 fl 80.0-96.0 Normal ( applies to non-numeric results) [facility] ([facility]) Mean Corpuscular HGB Conc 30.5 g/dL 32.0-36.5 Below low normal [facility] ([facility]) Mean Corpuscular Hemoglobin 25.4 pg 27.0-33.0 Below low normal [facility] ([facility]) Red Cell Distribution Width 15.4 % 11.5-14.5 Above high normal [facility] ([facility]) Platelet Count, Automated 230 10 150-450 Normal (applies to non-numeric results) [facility] ([facility]) Lymph % 34.6 % 24.0-44.0 Normal (applies to non-numeric resul ts) [facility] ([facility]) Neutrophils % 54.6 % 36.0-66.0 Normal (applies to non-numeric re sults) [facility] ([facility]) Eos % 1.3 % 0.0-3.0 Normal (applies to non-numeric resul ts) [facility] ([facility]) Barber % 8.6 % 0.0-5.0 Above high normal [facility] ([facility]) Baso % 0.5 % 0.0-1.0 Normal (applies to non-numeric resul ts) [facility] ([facility]) Immature Granulocyte % 0.4 % 0-3.0 Normal (applies to non-n umeric results) [facility] ([facility]) Nucleated Red Blood Cell % 0.0 % 0-0 Normal (applies to n on-numeric results) [facility] ([facility]) Lymph # 1.9 10 1.5-5.0 Normal (applies to non-numeric resul ts) [facility] ([facility]) Neutrophils # 3.0 10 1.5-8.5 Normal (applies to non-numeric re sults) [facility] ([facility]) Barber # 0.5 10 0.0-0.8 Normal (applies to non-numeric resul ts) [facility] ([facility]) Eos # 0.1 10 0.0-0.5 Normal (applies to non-numeric resul ts) [facility] ([facility]) Baso # 0.0 10 0.0-0.2 Normal (applies to non-numeric resul ts) [facility] ([facility]) ID Date Data Source [id number] 02/13/2020 11:16:00 AM EST [facility] ([facility]) Name Value Range Interpretation Code Description Data Vilma rce(s) Supporting Document(s) Thyrotropin [Units/volume] in Serum or Plasma 0.58 uIU/mL 0.47-5.01 [facility] ([facility]) Is patient fasting? Y ID Date Data Source [id number] 02/13/2020 11:16:00 AM EST [facility] ([facility]) Name Value Range Interpretation Code Description Data Vilma rce(s) Supporting Document(s) Cve Panel Laboratory test result [facility] ([facility]) Is patient fasting? Y Cholesterol 257 mg/dL 131-200 Above high normal [facility] ([facility]) Is patient fasting? Y HDL 45 mg/dL 29-86 [facility] ([facility]) Is patient fasting? Y Triglycerides 124 mg/dL 35-160 [facility] ([facility]) Is patient fasting? Y LDL 184 mg/dL 65-175 Above high normal [facility] ([facility]) Is patient fasting? Y Risk Factor 5.7 3.2-4.4 Above high normal [facility] ([facility]) Is patient fasting? Y LDL/HDL 4.09 1.47-3.22 Above high normal [facility] ([facility]) Is patient fasting? Y ID Date Data Source [id number] 02/13/2020 11:16:00 AM EST [facility] ([facility]) Name Value Range Interpretation Code Description Data Vilma rce(s) Supporting Document(s) Hemoglobin A1c/Hemoglobin.total in Blood 6.6 % 4.4-6.1 Above high normal [facility] ([facility]) Is patient fasting? Y ID Date Data Source [id number] 02/13/2020 11:16:00 AM EST [facility] ([facility]) Name Value Range Interpretation Code Description Data Vilma e(s) Supporting Document(s) Comprehensive Metabo Laboratory test result [facility] ([facility]) Is patient fasting? Y Sodium 138 meq/L 134-153 [facility] ([facility]) Is patient fasting? Y Chloride 100 meq/L 98-107 [facility] ([facility]) Is patient fasting? Y Potassium 4.4 meq/L 3.6-5.0 [facility] ([facility]) Is patient fasting? Y Glucose 114 mg/dL 65-110 Above high normal [facility] ([facility]) Is patient fasting? Y Co2 31 meq/L 22-30 Above high normal [facility] ([facility]) Is patient fasting? Y Creatinine 1.2 mg/dL 0.7-1.5 [facility] ([facility]) Is patient fasting? Y BUN 19 mg/dL 7-21 [facility] ([facility]) Is patient fasting? Y BUN/Creat 16 8-27 [facility] ([facility]) Is patient fasting? Y Albumin 4.3 g/dL 3.9-5.0 [facility] ([facility]) Is patient fasting? Y Total Protein 6.9 g/dL 6.3-8.2 [facility] ([facility]) Is patient fasting? Y Globulin 2.6 GM/DL 2.4-3.2 [facility] ([facility]) Is patient fasting? Y A/G Ratio 1.7 0.8-2.0 [facility] ([facility]) Is patient fasting? Y Total Bili Laboratory test result 0.2-1.3 ME [facility] ([facility]) Is patient fasting? Y Calcium 9.2 mg/dL 8.4-10.2 [facility] ([facility]) Is patient fasting? Y SGPT/Alt 5 U/L 7-56 Below low normal [facility] ([facility]) Is patient fasting? Y Sgot/Ast 9 U/L 5-40 [facility] ([facility]) Is patient fasting? Y Alkaline Phos 98 U/L 38-126 [facility] ([facility]) Is patient fasting? Y Anion Gap 7.0 mmol/L 8.0-16.0 Below low normal [facility] ( [facility]) Is patient fasting? Y Age 64 yrs [facility] ([facility]) Is patient fasting? Y Non-Aa GFR 48 mL/min [facility] ([facility]) Is patient fasting? Y Afr Amer GFR Laboratory test result [facility] ([facility]) Is patient fasting? Y ID Date Data Source [id number] 02/13/2020 11:16:00 AM EST [facility] ([facility]) Name Value Range Interpretation Code Description Data Vilma rce(s) Supporting Document(s) CBC W/Automated Diff Laboratory test result [facility] ([facility]) Is patient fasting? Y RBC 5.39 10^6/uL 4.20-5.40 [facility] ([facility]) Is patient fasting? Y WBC 5.2 10^3/uL 4.2-11.0 [facility] ([facility]) Is patient fasting? Y Hemoglobin 13.5 g/dL 12.0-16.0 [facility] ([facility]) Is patient fasting? Y Hematocrit 44.3 % 37.0-47.0 [facility] ([facility]) Is patient fasting? Y MCH 25.0 pg 27.0-34.0 Below low normal [facility] ( [facility]) Is patient fasting? Y MCV 82.2 fL 81.0-101 [facility] ([facility]) Is patient fasting? Y MCHC 30.5 g/dL 31.0-36.0 Below low normal [facility] ( [facility]) Is patient fasting? Y RDW 15.1 % 11.5-14.5 Above high normal [facility] ([facility]) Is patient fasting? Y Platelets 211 10^3/uL 150-450 [facility] ([facility]) Is patient fasting? Y Neut 48.2 % 37.0-80.0 [facility] ([facility]) Is patient fasting? Y MPV 8.9 fL 7.4-10.4 [facility] ([facility]) Is patient fasting? Y Lymph 42.3 % 25.0-40.0 Above high normal [facility] ([facility]) Is patient fasting? Y Barber 6.2 % 3.0-8.0 [facility] ([facility]) Is patient fasting? Y Eos 2.3 % 0.0-7.0 [facility] ([facility]) Is patient fasting? Y Baso 0.6 % 0.0-2.5 [facility] ([facility]) Is patient fasting? Y %Ig 0.4 % 0.0-0.0 Above high normal [facility] ([facility]) Is patient fasting? Y %NRBC 0.0 % 0.0-0.0 [facility] ([facility]) Is patient fasting? Y #Barber 0.32 10^3/uL 0.00-0.90 [facility] ([facility]) Is patient fasting? Y #Lymph 2.19 10^3/uL 0.60-3.40 [facility] ([facility]) Is patient fasting? Y #Neut 2.50 10^3/uL 2.00-6.90 [facility] ([facility]) Is patient fasting? Y #Eos 0.12 10^3/uL 0.00-0.70 [facility] ([facility]) Is patient fasting? Y #Baso 0.03 10^3/uL 0.00-0.20 [facility] ([facility]) Is patient fasting? Y #NRBC 0.00 10^3/uL 0.00-0.00 [facility] ([facility]) Is patient fasting? Y #Ig 0.02 10^3/uL 0.00-0.10 [facility] ([facility]) Is patient fasting? Y Manual Diff Laboratory test result M [facility] ([facility]) Is patient fasting? Y RBC Morph Laboratory test result [facility] ([facility]) Is patient fasting? Y ID Date Data Source [id number] 02/13/2020 05:48:00 PM [facility] Name Value Range Interpretation Code Description Data Vilma rce(s) Supporting Document(s) Thyrotropin [Units/volume] in Serum or Plasma by Detec tion limit <= 0.05 mIU/L 0.58 uIU/mL 0.47 - 5.01 [facility] ID Date Data Source [id number] 02/13/2020 05:35:00 PM [facility] Name Value Range Interpretation Code Description Data Vilma rce(s) Supporting Document(s) CVE PANEL [facility] al LIPID PANEL Cholesterol [Mass/volume] in Serum or Plasma 257 MG/DL 131 - 200 [facility] Deprecated Triglyceride [Mass/volume] in Serum or Plasma 124 MG/DL 3 5 - 160 [facility] HDL 45 MG/DL 29 - 86 [facility] Cholesterol in LDL [Mass/volume] in Serum or Plasma by Direc t assay 184 mg/dL 65 - 175 [facility] Cholesterol.total/Cholesterol in HDL [Mass Ratio] in Serum o r Plasma 5.7 3.2 - 4.4 [facility] LDL/HDL 4.09 1.47 - 3.22 H [facility] ital CVE RISK CHOL/HDL LDL/HDLMEN: 1/2 AVERAGE 3.43 1.00 AVERAGE 4.97 3.55 2X AVERAGE 9.55 6.25 3X AVERAGE 23.99 7.99WOMEN: 1/2 AVERAGE 3.27 1.47 AVERAGE 4.44 3.22 2X AVERAGE 7.05 5.03 3X AVERAGE 11.04 6.14 ID Date Data Source [id number] 02/13/2020 05:35:00 PM [facility] Name Value Range Interpretation Code Description Data Vilma rce(s) Supporting Document(s) COMPREHENSIVE METABOLIC PANEL [facility] COMPREHENSIVE METABOLIC PANEL Sodium [Moles/volume] in Serum or Plasma 138 mEq/L 134 - 153 [facility] Potassium [Moles/volume] in Serum or Plasma 4.4 mEq/L 3.6 - 5.0 [facility] Chloride [Moles/volume] in Serum or Plasma 100 mEq/L 98 - 107 [facility] Carbon dioxide, total [Moles/volume] in Serum or Plasma 31 MEQ/L 22 - 30 [facility] Glucose [Mass/volume] in Serum or Plasma 114 MG/DL 65 - 110 [facility] BUN 19 MG/DL 7 - 21 [facility] Creatinine [Mass/volume] in Serum or Plasma 1.2 MG/DL 0.7 - 1.5 [facility] BUN/CREAT 16 8 - 27 [facility] Protein [Mass/volume] in Serum or Plasma 6.9 G/DL 6.3 - 8.2 [facility] Albumin [Mass/volume] in Serum or Plasma 4.3 G/DL 3.9 - 5.0 [facility] Globulin [Mass/volume] in Serum by calculation 2.6 GM/DL 2.4 - 3.2 [facility] A/G RATIO 1.7 0.8 - 2.0 [facility] Calcium [Mass/volume] in Serum or Plasma 9.2 MG/DL 8.4 - 10.2 [facility] Bilirubin.total [Mass/volume] in Serum or Plasma <0.7 MG/DL 0.2 - 1.3 [facility] Alkaline phosphatase [Enzymatic activity/volume] in Serum or Plasma 98 U/L 38 - 126 [facility] Aspartate aminotransferase [Enzymatic activity/volume] in Se rum or Plasma 9 U/L 5 - 40 [facility] Alanine aminotransferase [Enzymatic activity/volume] in Seru m or Plasma 5 U/L 7 - 56 L [facility] Anion gap 3 in Serum or Plasma 7.0 mmol/L 8.0 - 16.0 L [facility] 64 [facility]min [facility] AFR AMER GFR >60 [facility] Male GFR In terprentation 20-49 yrs >60 mL/min Normal 50-59 yrs >56 mL/min Normal 60-69 yrs >49 mL/min Normal 70-79yrs >42 mL/min Normal 80 and above >35 mL/min Normal Female GFR Interpretation 20-39 yrs >60 mL/min Normal 40-49 yrs >58 mL/min Normal 50-59 yrs >51 mL/min Normal 60-69 yrs >45 mL/min Normal 70-79 yrs >39 mL/min Normal 80 and above >32 mL/min Normal ID Date Data Source [id number] 02/13/2020 05:22:00 PM EST [facility] Name Value Range Interpretation Code Description Data Vilma rce(s) Supporting Document(s) Hemoglobin A1c/Hemoglobin.total in Blood 6.6 % 4.4 - 6.1 [facility] {A1]{HB] ID Date Data Source [id number] 02/13/2020 05:19:00 PM EST [facility] Name Value Range Interpretation Code Description Data Vilma [facility](s) Supporting Document(s) CBC W/AUTOMATED DIFF [facility] COMPLETE BLOOD COUNT Leukocytes [#/volume] in Blood by Automated count 5.2 10^3/uL 4.2 - 1 1.0 [facility] Erythrocytes [#/volume] in Blood by Automated count 5.39 10^6/uL 4. 20 - 5.40 [facility] Hemoglobin [Mass/volume] in Blood 13.5 g/dL 12.0 - 16.0 [facility] Hematocrit [Volume Fraction] of Blood by Automated count 44.3 % 3 7.0 - 47.0 [facility] Erythrocyte mean corpuscular volume [Entitic volume] by Auto mated count 82.2 fL 81.0 - 101 [facility] Erythrocyte mean corpuscular hemoglobin [Entitic mass] by Automated count 25.0 pg 27.0 - 34.0 L [facility] Erythrocyte mean corpuscular hemoglobin concentration [Mass/volume] by Automated count 30.5 g/dL 31.0 - 36.0 L [facility] Erythrocyte distribution width [Ratio] by Automated count 15.1 % 11.5 - 14.5 H [facility] Platelets [#/volume] in Blood by Automated count 211 10^3/uL 150 - 45 0 [facility] Platelet mean volume [Entitic volume] in Blood by Automated count 8.9 fL 7.4 - 10.4 [facility] Neutrophils/100 leukocytes in Blood by Automated count 48.2 % 37. 0 - 80.0 [facility] Lymphocytes/100 leukocytes in Blood by Manual count 42.3 % 25.0 - 40.0 [facility] Monocytes/100 leukocytes in Blood by Automated count 6.2 % 3.0 - 8.0 [facility] Eosinophils/100 leukocytes in Blood by Automated count 2.3 % 0.0 - 7.0 [facility] Basophils/100 leukocytes in Blood by Automated count 0.6 % 0.0 - 2.5 [facility] %IG 0.4 % 0.0 - 0.[address] [facility] al %NRBC 0.0 % 0.0 - 0.0 [facility] al Neutrophils [#/volume] in Blood by Automated count 2.50 10^3/uL 2.00 - 6.90 [facility] Lymphocytes [#/volume] in Blood by Automated count 2.19 10^3/uL 0.60 - 3.40 [facility] Monocytes [#/volume] in Blood by Automated count 0.32 10^3/uL 0.00 - 0.90 [facility] Eosinophils [#/volume] in Blood by Automated count 0.12 10^3/uL 0.00 - 0.70 [facility] Basophils [#/volume] in Blood by Automated count 0.03 10^3/uL 0.00 - 0.20 [facility] #IG 0.02 10^3/uL 0.00 - 0.10 [facility] #NRBC 0.00 10^3/uL 0.00 - 0.00 [facility] MANUAL DIFF NOT INDICATED [facility] RBC MORPH NOT INDICATED [facility] spital ID Date Data Source [id number] 12/25/2019 12:59:00 PM EDT [facility] ([facility]) Name Value Range Interpretation Code Description Data Vilma rce(s) Supporting Document(s) Hemoglobin 11.1 g/dL 12.0-15.5 Below low normal [facility] ( [facility]) Red Blood Count 4.37 10 4.00-5.40 Normal (applies to non-numeric results) [facility] ([facility]) White Blood Count 3.6 10 4.0-10.0 Below low normal M [facility] ([facility]) Hematocrit 37.3 % 36.0-47.0 Normal (applies to non-numeric resul ts) [facility] ([facility]) Mean Corpuscular Hemoglobin 25.4 pg 27.0-33.0 Below low normal [facility] ([facility]) Mean Corpuscular Volume 85.4 fl 80.0-96.0 Normal ( applies to non-numeric results) [facility] ([facility]) Mean Corpuscular HGB Conc 29.8 g/dL 32.0-36.5 Below low normal [facility] ([facility]) Platelet Count, Automated 218 10 150-450 Normal (applies to non-numeric results) [facility] Red Cell Distribution Width 14.7 % 11.5-14.5 Above high normal [facility] ([facility]) Eos % 1.7 % 0.0-3.0 Normal (applies to non-numeric resul ts) [facility] ([facility]) Barber % 8.4 % 0.0-5.0 Above high normal [facility] ([facility]) Neutrophils % 64.7 % 36.0-66.0 Normal (applies to non-numeric re sults) [facility] ([facility]) Lymph % 24.3 % 24.0-44.0 Normal (applies to non-numeric resul ts) [facility] ([facility]) Immature Granulocyte % 0.3 % 0-3.0 Normal (applies to non-n umeric results) [facility] ([facility]) Baso % 0.6 % 0.0-1.0 Normal (applies to non-numeric resul ts) [facility] ([facility]) Nucleated Red Blood Cell % 0.0 % 0-0 Normal (applies to n on-numeric results) [facility]) Neutrophils # 2.3 10 1.5-8.5 Normal (applies to non-numeric re sults) [facility] ([facility]) Lymph # 0.9 10 1.5-5.0 Below low normal [facility] ( [facility]) Barber # 0.3 10 0.0-0.8 Normal (applies to non-numeric resul ts) [facility] ([facility]) Baso # 0.0 10 0.0-0.2 Normal (applies to non-numeric resul ts) [facility] ([facility]) Eos # 0.1 10 0.0-0.5 Normal (applies to non-numeric resul ts) [facility] ([facility]) ID Date Data Source [id number] 12/25/2019 12:59:00 PM EDT [facility] ([facility]) Name Value Range Interpretation Code Description Data Vilma rce(s) Supporting Document(s) Creatinine For GFR 1.09 mg/dL 0.55-1.30 Normal (applies to non -numeric results) [facility] Blood Urea Nitrogen 14 mg/dL 7-18 Normal (applies to non-nume christopher results) [facility]) Glucose, Fasting 114 mg/dL 70-100 Above high normal M [facility] ([facility]) Chloride Level 104 meq/L 98-107 Normal (applies to non-numeric r esults) [facility] Sodium Level 140 meq/L 136-145 Normal (applies to non-numeric res ults) [facility]) Potassium Serum 4.5 meq/L 3.5-5.1 Normal (applies to non-numeric results) [facility] ([facility]) Glomerular Filtration Rate 53.6 Normal (applies to n on-numeric results) [facility]) <content>Units are mL/min/1.73 m2</content>
<content></content>
<content>Chronic Kidney Disease Staging per NKF:</content>
<content></content>
<content>Stage I & II GFR >=60 Normal to Mildly Decreased</content>
<content>Stage III GFR 30- 59 Moderately Decreased</content>
<content>Stage IV GFR 15-29 Severely Decreased</content>
<content>Stage V GFR <15 Very Little GFR Left</content>
<content>ESRD GFR <15 on LOGGING EQUIPMENT OPERATOR</content>
<content></content> Anion Gap 2 meq/L 8-16 Below low normal [facility] ( [facility]) Carbon Dioxide Level 34 meq/L 21-32 Above high normal [facility] ([facility]) Calcium Level 8.8 mg/dL 8.8-10.2 Normal (applies to non-numeric re sults) [facility] ([facility]) Alt/SGPT 14 U/L 12-78 Normal (applies to non-numeric resul ts) [facility] ([facility]) Alkaline Phosphatase 112 U/L 45-117 Normal (applies to non-num giselle results) [facility] ([facility]) Ast/Sgot 5 U/L 7-37 Below low normal [facility] ([facility]) Albumin 2.9 GM/DL 3.2-5.2 Below low normal [facility] ( [facility]) Total Protein 6.6 GM/DL 6.4-8.2 Normal (applies to non-numeric re sults) [facility] ([facility]) Albumin/Globulin Ratio 0.8 1.2-2.2 Below low normal [facility] ([facility]) Bilirubin,Total 0.3 mg/dL 0.2-1.0 Normal (applies to non-numeric results) [facility] ([facility]) ID Date Data Source [id number] 12/25/2019 12:59:00 PM EDT [facility] Name Value Range Interpretation Code Description Data Vilma rce(s) Supporting Document(s) Carcinoembryonic Ag [Mass/volume] in Serum or Plasma 1.0 ng/mL Normal (applies to non-numeric results) [facility] ([facility]) THE CEA ASSAY IS PERFORMED ON THE [employer] BY CHEMILUMINESCENCE AND SHOULD NOT BE COMPARED INTERCHANGEABLY WITH OTHER METHODS. IT SHOULD NOT BE USED ALONE A SCREENING TEST OR DIAGNOSIS FOR THE PRESENCE OR ABSENCE OF MALIGNANT DISEASE. PREDICTIONS OF DISEASE RECURRENCE SHOULD NOT BE BASED SOLELY ON VALUES OBTAINED FROM SERIAL PATIENT SERUM VALUES. ID Date Data Source [id number] 12/25/2019 12:58:00 PM EDT [facility] ([facility] ) Name Value Range Interpretation Code Description Data Vilma rce(s) Supporting Document(s) Thyroid Stimulating Hormone 0.856 uIU/ML 0.358-3.740 [facility] ([facility]) Free T4 1.41 ng/dL 0.76-1.46 [facility] ([facility] ) Procedure Social History No Information Vital Signs ID Date Data Source UNK Name Value Range Interpretation Code Description Data Source(s) Body mass index (BMI) [Ratio] 24.1 kg/m2 24.1 k g/m2 [facility] ([facility]) Systolic blood pressure 136 mm[Hg] 136 mm[Hg] M [facility] ([facility]) [place] body weight 125 [lb_av] 125 [lb_av] [facility] T ([facility]) Body weight 66.679 kg 66.679 kg [facility] ([facility]) Body surface area Derived from formula 1.75 m2 1.75 m2 [facility] ([facility]) Oxygen saturation in Arterial blood by Pulse oximetry 94 % 94 % [facility] ([facility]) o2 3L continuous 79 on 3L ocd Body height 65.50 [in_i] 65.50 [in_i] [facility] ([facility]) 5'5.50" Body weight 147.00 [lb_av] 147.00 [lb_av] [facility] ([facility]) Diastolic blood pressure 70 mm[Hg] 70 mm[Hg] [facility] ([facility]) Heart rate 86 /min 86 /min [facility] ([facility]) Body weight 60.839 kg 60.839 kg [facility] Body mass index (BMI) [Ratio] 21.6 kg/m2 21.6 k g/m2 [facility] ([facility]) Body surface area Derived from formula 1.69 m2 1.69 m2 [facility] ([facility]) Systolic blood pressure 142 mm[Hg] 142 mm[Hg] M [facility] ([facility]) Diastolic blood pressure 86 mm[Hg] 86 mm[Hg] [facility] ([facility]) Heart rate 89 /min 89 /min [facility] ([facility]) Body temperature 97.2 [degF] 97.2 [degF] [facility] ([facility]) Respiratory rate 16 /min 16 /min [facility] ( [facility]) Oxygen saturation in Arterial blood by Pulse oximetry 95 % 95 % [facility] ([facility]) Body weight 134.12 [lb_av] 134.12 [lb_av] [facility] T ([facility]) Body height 66 [in_i] 66 [in_i] [facility] ([facility]) 5'6" Heart rate 96 /min 96 /min [facility] ([facility] ) Body height 64.5 [in_i] 64.5 [in_i] [facility] ([facility] ) 5'4.50" Systolic blood pressure 121 mm[Hg] 121 mm[Hg] M [facility] ([facility] ) Body weight 134.25 [lb_av] 134.25 [lb_av] [facility] ([facility] ) Body mass index (BMI) [Ratio] 22.7 kg/m2 22.7 k g/m2 [facility] ([facility] ) Diastolic blood pressure 66 mm[Hg] 66 mm[Hg] [facility] ([facility] ) Oxygen saturation in Arterial blood by Pulse oximetry 95 % 95 % [facility] ([facility] ) Body weight 132.00 [lb_av] 132.00 [lb_av] [facility] T ([facility], ) [place] body weight 125 [lb_av] 125 [lb_av] [facility] T ([facility], ) Body weight 59.875 kg 59.875 kg [facility] ([facility], ) Body mass index (BMI) [Ratio] 21.6 kg/m2 21.6 k g/m2 [facility] Body surface area Derived from formula 1.67 m2 1.67 m2 [facility] ) Body height 65.50 [in_i] 65.50 [in_i] [facility] ([facility], ) 5'5.50" Systolic blood pressure 140 mm[Hg] 140 mm[Hg] [facility] Diastolic blood pressure 90 mm[Hg] 90 mm[Hg] [facility] Body height 65.50 [in_i] 65.50 [in_i] [facility] ([facility]) 5'5.50" Heart rate 88 /min 88 /min [facility] ([facility]) Body weight 134.00 [lb_av] 134.00 [lb_av] [facility] ([facility]) Oxygen saturation in Arterial blood by Pulse oximetry 943 % 943 % [facility] ([facility]) Body mass index (BMI) [Ratio] 22.0 kg/m2 22.0 k g/m2 [facility] ([facility]) [place] body weight 125 [lb_av] 125 [lb_av] [facility] ([facility]) Body weight 60.782 kg 60.782 kg [facility] ([facility]) Body surface area Derived from formula 1.68 m2 1.68 m2 [facility] ([facility]) Oxygen saturation in Arterial blood by Pulse oximetry 943 % 943 % [facility] ([facility]) Body height 65.50 [in_i] 65.50 [in_i] [facility] ([facility]) 5'5.50" Body weight 134.00 [lb_av] 134.00 [lb_av] [facility] ([facility]) Body mass index (BMI) [Ratio] 22.0 kg/m2 22.0 k g/m2 [facility] ([facility]) [place] body weight 125 [lb_av] 125 [lb_av] [facility] ([facility]) Body weight 60.782 kg 60.782 kg [facility] ([facility]) Body surface area Derived from formula 1.68 m2 1.68 m2 [facility] ([facility]) Systolic blood pressure 130 mm[Hg] 130 mm[Hg] M [facility] ([facility]) Diastolic blood pressure 70 mm[Hg] 70 mm[Hg] [facility] ([facility]) Heart rate 90 /min 90 /min [facility] ([facility]) Body temperature 98.4 [degF] 98.4 [degF] [facility] ([facility]) Oxygen saturation in Arterial blood by Pulse oximetry 93 % 93 % [facility]) on 3L oxygen Respiratory rate 18 /min 18 /min [facility] ( [facility]) Body mass index (BMI) [Ratio] 21.5 kg/m2 21.5 k g/m2 [facility] ([facility]) Body weight 133.00 [lb_av] 133.00 [lb_av] [facility] T ([facility]) Body surface area Derived from formula 1.68 m2 1.68 m2 [facility] ([facility]) Body weight 60.329 kg 60.329 kg [facility] ([facility]) Body height 66 [in_i] 66 [in_i] [facility] ([facility]) 5'6" Body surface area Derived from formula 1.67 m2 1.67 m2 [facility] ([facility]) Body weight 131.50 [lb_av] 131.50 [lb_av] [facility] T ([facility]) Systolic blood pressure 110 mm[Hg] 110 mm[Hg] M EDENT ([facility]) Diastolic blood pressure 64 mm[Hg] 64 mm[Hg] [facility] ([facility]) Heart rate 88 /min 88 /min [facility] ([facility]) Body temperature 98.1 [degF] 98.1 [degF] [facility] ([facility]) Respiratory rate 18 /min 18 /min [facility] ( [facility]) Oxygen saturation in Arterial blood by Pulse oximetry 91 % 91 % [facility] ([facility]) Body weight 59.648 kg 59.648 kg [facility] ([facility]) Body height 66 [in_i] 66 [in_i] [facility] ([facility]) 5'6" Body mass index (BMI) [Ratio] 21.2 kg/m2 21.2 k g/m2 [facility] ([facility]) Body surface area Derived from formula 1.68 m2 1.68 m2 [facility] ([facility]) Body weight 61.236 kg 61.236 kg [facility] ([facility]) Systolic blood pressure 138 mm[Hg] 138 mm[Hg] [facility] Diastolic blood pressure 80 mm[Hg] 80 mm[Hg] [facility] ([facility]) Heart rate 98 /min 98 /min [facility] ([facility]) Oxygen saturation in Arterial blood by Pulse oximetry 92 % 92 % [facility] ([facility]) Body temperature 97.5 [degF] 97.5 [degF] [facility] ([facility]) Body height 65.50 [in_i] 65.50 [in_i] [facility] ([facility]) 5'5.50" Body weight 135.00 [lb_av] 135.00 [lb_av] MED[facility] T ([facility]) Body mass index (BMI) [Ratio] 22.1 kg/m2 22.1 k g/m2 [facility] ([facility]) [place] body weight 125 [lb_av] 125 [lb_av] [facility] T ([facility]) Body surface area Derived from formula 1.67 m2 1.67 m2 [facility] ([facility]) Systolic blood pressure 120 mm[Hg] 120 mm[Hg] [facility] Diastolic blood pressure 82 mm[Hg] 82 mm[Hg] [facility] ([facility]) Heart rate 93 /min 93 /min [facility] ([facility]) Oxygen saturation in Arterial blood by Pulse oximetry 91 % 91 % [facility] ([facility]) Body temperature 98.0 [degF] 98.0 [degF] [facility] ([facility]) Body height 65.50 [in_i] 65.50 [in_i] [facility] ([facility]) 5'5.50" Body weight 133.00 [lb_av] 133.00 [lb_av] [facility] ([facility]) Body mass index (BMI) [Ratio] 21.8 kg/m2 21.8 k g/m2 [facility] ([facility]) [place] body weight 125 [lb_av] 125 [lb_av] [facility] ([facility]) Body weight 60.329 kg 60.329 kg [facility] ([facility]) Oxygen saturation in Arterial blood by Pulse oximetry 91 % 91 % [facility] ([facility]) Systolic blood pressure 120 mm[Hg] 120 mm[Hg] M EDENT ([facility]) Diastolic blood pressure 68 mm[Hg] 68 mm[Hg] [facility] ([facility]) Heart rate 88 /min 88 /min [facility] ([facility]) Body temperature 98.8 [degF] 98.8 [degF] [facility] ([facility]) Respiratory rate 18 /min 18 /min [facility] ( [facility]) Body weight 132.25 [lb_av] 132.25 [lb_av] [facility] ([facility]) Body weight 59.989 kg 59.989 kg [facility] ([facility]) Body height 66 [in_i] 66 [in_i] [facility] ([facility]) 5'6" Body mass index (BMI) [Ratio] 21.3 kg/m2 21.3 k g/m2 [facility] ([facility]) Body surface area Derived from formula 1.68 m2 1.68 m2 [facility] ([facility]) Body height 65.50 [in_i] 65.50 [in_i] [facility] ([facility]) 5'5.50" Body weight 135.00 [lb_av] 135.00 [lb_av] [facility] T ([facility]) Body mass index (BMI) [Ratio] 22.1 kg/m2 22.1 k g/m2 [facility] ([facility]) [place] body weight 125 [lb_av] 125 [lb_av] [facility] T ([facility]) Body weight 61.236 kg 61.236 kg [facility] ([facility]) Body surface area Derived from formula 1.68 m2 1.68 m2 [facility] ([facility], ) Body temperature 98.2 [degF] 98.2 [degF] [facility] ([facility]) Systolic blood pressure 122 mm[Hg] 122 mm[Hg] M EDENT ([facility]) Diastolic blood pressure 70 mm[Hg] 70 mm[Hg] [facility] ([facility]) Respiratory rate 18 /min 18 /min [facility] ( [facility]) Body weight 60.442 kg 60.442 kg [facility] ([facility]) Heart rate 88 /min 88 /min [facility] ([facility]) Oxygen saturation in Arterial blood by Pulse oximetry 90 % 90 % [facility] ([facility]) Body weight 133.25 [lb_av] 133.25 [lb_av] [facility] T ([facility]) Body height 66 [in_i] 66 [in_i] [facility] ([facility]) 5'6" Body mass index (BMI) [Ratio] 21.5 kg/m2 21.5 k g/m2 [facility] ([facility]) Body surface area Derived from formula 1.68 m2 1.68 m2 [facility] ([facility]) Body mass index (BMI) [Ratio] 22.7 kg/m2 22.7 k g/m2 [facility] ([facility] ) Diastolic blood pressure 70 mm[Hg] 70 mm[Hg] [facility] ([facility] ) Heart rate 85 /min 85 /min [facility] ([facility] ) Body height 64.5 [in_i] 64.5 [in_i] [facility] ([facility] ) 5'4.50" Body temperature 96.4 [degF] 96.4 [degF] [facility] ([facility] ) Systolic blood pressure 122 mm[Hg] 122 mm[Hg] M EDENT ([facility] ) Body weight 134.25 [lb_av] 134.25 [lb_av] [facility] T ([facility] ) Oxygen saturation in Arterial blood by Pulse oximetry 98 % 98 % [facility] ([facility] ) Diastolic blood pressure 82 mm[Hg] 82 mm[Hg] [facility] ([facility], ) Systolic blood pressure 132 mm[Hg] 132 [facility]Hg[facility] Heart rate 92 /min 92 /min [facility] ([facility]) Body height 65.50 [in_i] 65.50 [in_i] [facility] ([facility]) 5'5.50" Oxygen saturation in Arterial blood by Pulse oximetry 90 % 90 % [facility] ([facility]) Body weight 133.00 [lb_av] 133.00 [lb_av] [facility] Body mass index (BMI) [Ratio] 21.8 kg/m2 21.8 k g/m2 [facility] ([facility]) [place] body weight 125 [lb_av] 125 [lb_av] [facility] Body weight 60.329 kg 60.329 kg [facility] ([facility]) Body temperature 97.8 [degF] 97.8 [degF] [facility] ([facility]) Body surface area Derived from formula 1.67 m2 1.67 m2 [facility] ([facility]) ID Date Data Source [id number] 09/18/2020 11:18:24 AM EDT [facility] Name Value Range Interpretation Code Description Data Source(s) WEIGHT RECORDED 132.00 pounds 132.00 pounds [facility] Height 66 Inches 066 Inches [facility] ID Date Data Source [id number] 09/18/2020 11:15:[address] [facility] Name Value Range Interpretation Code Description Data Source(s) WEIGHT RECORDED 132.00 pounds 132.00 pounds [facility] Height 66 Inches 066 Inches [facility]
[2021-02-06] MEDS ORDERED: SODIUM CHLORIDE 0.9% INJ 10 ML SYR IV PRN (17:40)
--- NOTE | 2021-02-06 18:02 | REP ---
INDICATION: DYSPNEA/COUGH. COMPARISON: Portable chest, 01/04/2021 TECHNIQUE: AP portable chest image was obtained. FINDINGS: There is atelectasis or pneumonia in the right lung base. There may be a superimposed pleural effusion. There is cardiomegaly and pulmonary venous hypertension without congestive heart failure. There is a right IJ chemotherapy port. IMPRESSION: Atelectasis or pneumonia in the right lung base. There may be of associated pleural effusion. No significant change. <Electronically signed by Aime Hoffmann > 02/06/21 [id number]
--- OUTSIDE RECORDS SUMMARY | 2021-02-06 18:11 | CCD ---
Author Author [facility] Organization [facility] Address Unknown Phone Unavailable Care Team Providers Care Concrete Pourer Name Role Phone Leslie Kim ANP-BC Unavailable Unavailable JulioLeslie Elsie ANP-BC Unavailable Unavailable JulioLesile Elsie ANP-BC Unavailable Unavailable JulioLeslie Elsie ANP-BC [...] Elsie ANP-BC Unavailable Unavailable Nevills, C Maty ELECTRONIC EQUIPMENT REPAIRER Unavailable Unavailable Nevills, C Maty ELECTRONIC EQUIPMENT REPAIRER Unavailable Unavailable Nevills, C Maty ELECTRONIC EQUIPMENT REPAIRER Unavailable Unavailable Nevills, C Maty ELECTRONIC EQUIPMENT REPAIRER Unavailable Unavailable Nevills, C Maty ELECTRONIC EQUIPMENT REPAIRER Unavailable Unavailable Nevills, C Maty ELECTRONIC EQUIPMENT REPAIRER Unavailable Unavailable Nevills, C Maty ELECTRONIC EQUIPMENT REPAIRER Unavailable Unavailable Nevills, C Maty ELECTRONIC EQUIPMENT REPAIRER Unavailable Unavailable Nevills, C Maty ELECTRONIC EQUIPMENT REPAIRER Unavailable Unavailable Nevills, C Maty ELECTRONIC EQUIPMENT REPAIRER Unavailable Unavailable Nevills, C Maty ELECTRONIC EQUIPMENT REPAIRER Unavailable Unavailable Nevills, C Maty ELECTRONIC EQUIPMENT REPAIRER Unavailable Unavailable Nevills, C Maty ELECTRONIC EQUIPMENT REPAIRER Unavailable Unavailable Nevills, C Maty ELECTRONIC EQUIPMENT REPAIRER Unavailable Unavailable Nevills, C Maty ELECTRONIC EQUIPMENT REPAIRER Unavailable Unavailable Nevills, C Maty ELECTRONIC EQUIPMENT REPAIRER Unavailable Unavailable Nevills, C Maty ELECTRONIC EQUIPMENT REPAIRER Unavailable Unavailable Nevills, C Maty ELECTRONIC EQUIPMENT REPAIRER Unavailable Unavailable Nevills, C Maty ELECTRONIC EQUIPMENT REPAIRER Unavailable Unavailable Nevills, C Maty ELECTRONIC EQUIPMENT REPAIRER Unavailable Unavailable Nevills, C Maty ELECTRONIC EQUIPMENT REPAIRER Unavailable Unavailable Nevills, C Maty ELECTRONIC EQUIPMENT REPAIRER Unavailable Unavailable Nevills, C Maty ELECTRONIC EQUIPMENT REPAIRER Unavailable Unavailable Nevills, C Maty ELECTRONIC EQUIPMENT REPAIRER Unavailable Unavailable Nevills, C Maty ELECTRONIC EQUIPMENT REPAIRER Unavailable Unavailable Nevills, C Maty ELECTRONIC EQUIPMENT REPAIRER Unavailable Unavailable Nevills, C Maty ELECTRONIC EQUIPMENT REPAIRER Unavailable Unavailable Nevills, C Maty ELECTRONIC EQUIPMENT REPAIRER Unavailable Unavailable Nevills, C Maty ELECTRONIC EQUIPMENT REPAIRER Unavailable Unavailable Nevills, C Maty ELECTRONIC EQUIPMENT REPAIRER Unavailable Unavailable Nevills, C Maty ELECTRONIC EQUIPMENT REPAIRER Unavailable Unavailable Nevills, C Maty ELECTRONIC EQUIPMENT REPAIRER Unavailable Unavailable Nevills, C Maty ELECTRONIC EQUIPMENT REPAIRER Unavailable Unavailable THOMAS, B CINDY ELECTRONIC EQUIPMENT REPAIRER Unavailable Unavailable THOMAS, B CINDY ELECTRONIC EQUIPMENT REPAIRER Unavailable Unavailable THOMAS, B CINDY ELECTRONIC EQUIPMENT REPAIRER Unavailable Unavailable THOMAS, B CINDY ELECTRONIC EQUIPMENT REPAIRER Unavailable Unavailable THOMAS, B CINDY ELECTRONIC EQUIPMENT REPAIRER Unavailable Unavailable THOMAS, B CINDY ELECTRONIC EQUIPMENT REPAIRER Unavailable Unavailable THOMAS, B CINDY ELECTRONIC EQUIPMENT REPAIRER Unavailable Unavailable THOMAS, B CINDY ELECTRONIC EQUIPMENT REPAIRER Unavailable Unavailable THOMAS, B CINDY ELECTRONIC EQUIPMENT REPAIRER Unavailable Unavailable THOMAS, B CINDY ELECTRONIC EQUIPMENT REPAIRER Unavailable Unavailable THOMAS, B CINDY ELECTRONIC EQUIPMENT REPAIRER Unavailable Unavailable THOMAS, B CINDY ELECTRONIC EQUIPMENT REPAIRER Unavailable Unavailable THOMAS, B CINDY ELECTRONIC EQUIPMENT REPAIRER Unavailable Unavailable THOMAS, B CINDY ELECTRONIC EQUIPMENT REPAIRER Unavailable Unavailable THOMAS, B CINDY ELECTRONIC EQUIPMENT REPAIRER Unavailable Unavailable THOMAS, B CINDY ELECTRONIC EQUIPMENT REPAIRER Unavailable Unavailable THOMAS, B CINDY ELECTRONIC EQUIPMENT REPAIRER Unavailable Unavailable THOMAS, B CINDY ELECTRONIC EQUIPMENT REPAIRER Unavailable Unavailable THOMAS, B CINDY ELECTRONIC EQUIPMENT REPAIRER Unavailable Unavailable THOMAS, B CINDY ELECTRONIC EQUIPMENT REPAIRER Unavailable Unavailable THOMAS, B CINDY ELECTRONIC EQUIPMENT REPAIRER Unavailable Unavailable THOMAS, B CINDY ELECTRONIC EQUIPMENT REPAIRER Unavailable Unavailable THOMAS, B CINDY ELECTRONIC EQUIPMENT REPAIRER Unavailable Unavailable THOMAS, B CINDY ELECTRONIC EQUIPMENT REPAIRER Unavailable Unavailable THOMAS, B CINDY ELECTRONIC EQUIPMENT REPAIRER Unavailable Unavailable THOMAS, B CINDY ELECTRONIC EQUIPMENT REPAIRER Unavailable Unavailable THOMAS, B CINDY ELECTRONIC EQUIPMENT REPAIRER Unavailable Unavailable THOMAS, B CINDY ELECTRONIC EQUIPMENT REPAIRER Unavailable Unavailable THOMAS, B CINDY ELECTRONIC EQUIPMENT REPAIRER Unavailable Unavailable THOMAS, B CINDY ELECTRONIC EQUIPMENT REPAIRER Unavailable Unavailable THOMAS, B CINDY ELECTRONIC EQUIPMENT REPAIRER Unavailable Unavailable THOMAS, B CINDY ELECTRONIC EQUIPMENT REPAIRER Unavailable Unavailable THOMAS, B CINDY ELECTRONIC EQUIPMENT REPAIRER Unavailable Unavailable THOMAS, B CINDY ELECTRONIC EQUIPMENT REPAIRER Unavailable Unavailable THOMAS, B CINDY ELECTRONIC EQUIPMENT REPAIRER Unavailable Unavailable THOMAS, B CINDY ELECTRONIC EQUIPMENT REPAIRER Unavailable Unavailable THOMAS, B CINDY ELECTRONIC EQUIPMENT REPAIRER Unavailable Unavailable THOMAS, B CINDY ELECTRONIC EQUIPMENT REPAIRER Unavailable Unavailable THOMAS, B CINDY ELECTRONIC EQUIPMENT REPAIRER Unavailable Unavailable THOMAS, B ICNDY ELECTRONIC EQUIPMENT REPAIRER Unavailable Unavailable THOMAS, B CINDY ELECTRONIC EQUIPMENT REPAIRER Unavailable Unavailable THOMAS, B CINDY ELECTRONIC EQUIPMENT REPAIRER Unavailable Unavailable THOMAS, B CINDY ELECTRONIC EQUIPMENT REPAIRER Unavailable Unavailable THOMAS, B CINDY ELECTRONIC EQUIPMENT REPAIRER Unavailable Unavailable THOMAS, B CINDY ELECTRONIC EQUIPMENT REPAIRER Unavailable Unavailable THOMAS, B CINDY ELECTRONIC EQUIPMENT REPAIRER Unavailable Unavailable THOMAS, B CINDY ELECTRONIC EQUIPMENT REPAIRER Unavailable Unavailable THOMAS, B CINDY ELECTRONIC EQUIPMENT REPAIRER Unavailable Unavailable THOMAS, B CINDY ELECTRONIC EQUIPMENT REPAIRER Unavailable Unavailable THOMAS, B CINDY ELECTRONIC EQUIPMENT REPAIRER Unavailable Unavailable THOMAS, B CINDY ELECTRONIC EQUIPMENT REPAIRER Unavailable Unavailable THOMAS, B CINDY ELECTRONIC EQUIPMENT REPAIRER Unavailable Unavailable THOMAS, B CINDY ELECTRONIC EQUIPMENT REPAIRER Unavailable Unavailable THOMAS, B CINDY ELECTRONIC EQUIPMENT REPAIRER Unavailable Unavailable THOMAS, B CINDY ELECTRONIC EQUIPMENT REPAIRER Unavailable Unavailable THOMAS, B CINDY ELECTRONIC EQUIPMENT REPAIRER Unavailable Unavailable THOMAS, B CINDY ELECTRONIC EQUIPMENT REPAIRER Unavailable Unavailable THOMAS, B CINDY ELECTRONIC EQUIPMENT REPAIRER Unavailable Unavailable THOMAS, B CINDY ELECTRONIC EQUIPMENT REPAIRER Unavailable Unavailable THOMAS, B CINDY ELECTRONIC EQUIPMENT REPAIRER Unavailable Unavailable THOMAS, B CINDY ELECTRONIC EQUIPMENT REPAIRER Unavailable Unavailable THOMAS, B CINDY ELECTRONIC EQUIPMENT REPAIRER Unavailable Unavailable Leslie Kim ANP-BC Unavailable Unavailable Leslie Kim ANP-BC Unavailable Unavailable Leslie Kim ANP-BC Unavailable Unavailable Julio, Leslie Elsie ANP-BC Unavailable Unavailable Julio, Leslie Elsie ANP-BC Unavailable Unavailable Julio, Leslie Elsie ANP-BC Unavailable Unavailable Julio, Leslie Elsie ANP-BC Unavailable Unavailable Julio, Leslie Elsie ANP-BC Unavailable Unavailable Julio, Leslie Elsie ANP-BC Unavailable Unavailable Julio, Leslie Elsei ANP-BC Unavailable Unavailable Julio, Leslie Elsie ANP-BC [...] MATT DO Unavailable Unavailable Nevills, C Maty ELECTRONIC EQUIPMENT REPAIRER Unavailable Unavailable Nevills, C Maty ELECTRONIC EQUIPMENT REPAIRER Unavailable Unavailable Nevills, C Maty ELECTRONIC EQUIPMENT REPAIRER Unavailable Unavailable Nevills, C Maty ELECTRONIC EQUIPMENT REPAIRER Unavailable Unavailable Nevills, C Maty ELECTRONIC EQUIPMENT REPAIRER Unavailable Unavailable Nevills, C Maty ELECTRONIC EQUIPMENT REPAIRER Unavailable Unavailable Nevills, C Maty ELECTRONIC EQUIPMENT REPAIRER Unavailable Unavailable Nevills, C Maty ELECTRONIC EQUIPMENT REPAIRER Unavailable Unavailable Nevills, C Maty ELECTRONIC EQUIPMENT REPAIRER Unavailable Unavailable Nevills, C Maty ELECTRONIC EQUIPMENT REPAIRER Unavailable Unavailable Nevills, C Maty ELECTRONIC EQUIPMENT REPAIRER Unavailable Unavailable Nevills, C Maty ELECTRONIC EQUIPMENT REPAIRER Unavailable Unavailable Nevills, C Maty ELECTRONIC EQUIPMENT REPAIRER Unavailable Unavailable Nevills, C Maty ELECTRONIC EQUIPMENT REPAIRER Unavailable Unavailable Nevills, C Maty ELECTRONIC EQUIPMENT REPAIRER Unavailable Unavailable Nevills, C Maty ELECTRONIC EQUIPMENT REPAIRER Unavailable Unavailable Nevills, C Maty ELECTRONIC EQUIPMENT REPAIRER Unavailable Unavailable Nevills, C Maty ELECTRONIC EQUIPMENT REPAIRER Unavailable Unavailable Nevills, C Maty ELECTRONIC EQUIPMENT REPAIRER Unavailable Unavailable Nevills, C Maty ELECTRONIC EQUIPMENT REPAIRER Unavailable Unavailable Nevills, C Maty ELECTRONIC EQUIPMENT REPAIRER Unavailable Unavailable Nevills, C Maty ELECTRONIC EQUIPMENT REPAIRER Unavailable Unavailable Nevills, C Maty ELECTRONIC EQUIPMENT REPAIRER Unavailable Unavailable Nevills, C Maty ELECTRONIC EQUIPMENT REPAIRER Unavailable Unavailable Nevills, C Maty ELECTRONIC EQUIPMENT REPAIRER Unavailable Unavailable Nevills, C Maty ELECTRONIC EQUIPMENT REPAIRER Unavailable Unavailable Nevills, C Maty ELECTRONIC EQUIPMENT REPAIRER Unavailable Unavailable Nevills, C Maty ELECTRONIC EQUIPMENT REPAIRER Unavailable Unavailable Nevills, C Maty ELECTRONIC EQUIPMENT REPAIRER Unavailable Unavailable Nevills, C Maty ELECTRONIC EQUIPMENT REPAIRER Unavailable Unavailable Nevills, C Maty ELECTRONIC EQUIPMENT REPAIRER Unavailable Unavailable Nevills, C Maty ELECTRONIC EQUIPMENT REPAIRER Unavailable Unavailable Nevills, C Maty ELECTRONIC EQUIPMENT REPAIRER Unavailable Unavailable Mindy DHALIWAL MD Unavailable Unavailable [...] GUAN Unavailable Unavailable Manuel JR, D Casandra GAUN Unavailable Unavailable Manuel JR, D Casandra GUAN [...] Casandra GUAN Unavailable Unavailable Manuel JR, D aCsandra GUAN Unavailable Unavailable Manuel JR, D Casandra [...] Unavailable Markell CHAMPION MD Unavailable Unavailable Markell CHAMPOIN MD Unavailable Unavailable Markell CHAMPION MD Unavailable [...] is protected by Article 27-F of the [facility] Public Health law. If you continue you may have access to information: Regarding HIV / AIDS; Provided by facilities licensed or operated by the [facility] Office of Mental Health; or Provided by the [facility] Office for People With Developmental Disabilities. If such information is present, then the following [facility] mandated warning applies: This information has been [...] law may result in a fine or usp sentence or both. A general authorization for the release of medical or other information is NOT sufficient authorization for further disc losure. Allergies and Adverse Reactions Type Description Substance Reaction Status Data Source(s ) Drug allergy PREDNISOLONE PREDNISOLONE SEVERE JOINT PAIN [facility] Propensity to adverse reactions SULFA (sulfonamide) SULFA (sulfonamid e) RASH [facility] Propensity to adverse reactions PCN (penicillin) PCN (penicillin) VOM ITING [facility] Family History Family Member Name Family Member Gender Family Member Status Date o f Status Description Data Source(s) Unknown Unknown Problem [facility] ([facility]) Unknown Male Problem [facility] ([facility]) no contact Unknown Male Problem [facility] ([facility] ) () Encounters Encounter Providers Location Date Indications Data Source(s ) Outpatient Attender: RADHA Champion/Jennifer/Hal/ Reindl 01/21/2021 02:15:00 PM EDT [facility] ([facility] Outpatient Attender: Maty Menon NPConsultant: SPECIFIED NOT 12/08/2020 03:21:00 PM EDT - 12/08/2020 03:21:00 PM EDT [facility] Outpatient Attender: Maty Menon NP Family Practice 12/08 03:20:00 PM EDT [facility] ([facility] OFFICE OUTPATIENT VISIT 15 MINUTES Attender: CINDY GUZMAN NP Physical Therapy 11/14/2020 03:15:00 PM EDT [facility] ([facility]) Outpatient Attender: ANKIT Champion/Jennifer/Hal/Reind claudio 10/30/2020 02:15:00 PM EDT [facility] ([facility] Outpatient Attender: MATT Westbrook/Jennifer/Hal/Reindl 10/02/2020 01:00:00 PM EDT [facility] ([facility] Outpatient Attender: Maty Menon NPConsultant: SPECIFIED NOT 09/09/2020 01:00:00 PM EDT - 09/09/2020 01:00:00 PM EDT [facility] Outpatient Attender: Casandra Ballardsultant: SPECIFIE D NOT 08/21/2020 09:45:00 AM EDT - 08/21/2020 11:36:00 AM EDT [facility] Patient discharged. Outpatient Attender: Casandra Jackson JRConsultant: SPECIFIE D NOT 08/16/2020 08:50:00 AM EDT - 08/16/2020 09:50:00 AM EDT [facility] Patient discharged. Outpatient Attender: Casandra Jackson JRConsultant: SPECIFIE D NOT 07/28/2020 10:43:00 AM EDT - 07/28/2020 11:43:00 AM EDT [facility] Patient discharged. Outpatient Attender: Casandra Manuel JRConsultant: SPECIFIE D NOT 07/25/2020 11:48:24 AM EDT - 08/03/2020 01:26:00 PM EDT [facility] Patient discharged. Outpatient Attender: Casandra Jackson JRConsultant: SPECIFIE D NOT 07/17/2020 06:00:00 AM EDT - 07/17/2020 08:21:00 AM EDT [facility] Patient discharged. Outpatient Attender: Casandra Jackson Consultant: SPECIFIE D NOT 07/12/2020 09:18:00 AM EDT - 07/12/2020 10:18:00 AM EDT [facility] Patient discharged. Outpatient Attender: Elsie SWIFT- Family Practice 04/2020 11:00:00 AM EDT [facility] ([facility]) Outpatient Attender: Elsie LYLESonsultant: SPECIFIED NOT 07/10/2020 10:45:00 AM EDT - 07/10/2020 10:45:00 AM EDT [facility] Outpatient Attender: Casandra Jackson Eliosultant: SPECIFIE D NOT 07/09/2020 09:58:33 AM EDT - 07/09/2020 01:40:00 PM EDT [facility] Patient discharged. Outpatient Attender: MATT Westbrook/Jennifer/Hal/Reindl 06/02/2020 01:30:00 PM EST [facility] ([facility] Outpatient Attender: ANKIT Champion/Jennifer/Hal/Reind claudio 05/21/2020 12:45:00 PM EST [facility] ([facility] Outpatient Attender: MATT Zambrano/Hal/Reindl 05/19/2020 01:00:00 PM EST [facility] ([facility] Outpatient Attender: Elsie LYLESonsultant: SPECIFIED NOT 05/15/2020 12:57:00 PM EST - 05/15/2020 12:57:00 PM EST [facility] OFFICE OUTPATIENT VISIT 15 MINUTES Attender: CINDY THOMAS ELECTRONIC EQUIPMENT REPAIRER Physical Therapy 05/09/2020 10:15:00 AM EST [facility] ([facility]) Outpatient Attender: Elsie Kim ANP-BCConsultant: SPECIFIED NOT 02/13/2020 10:44:00 AM EST - 02/13/2020 10:44:00 AM EST [facility] OFFICE OUTPATIENT VISIT 15 MINUTES Attender: CINDY GUZMAN ELECTRONIC EQUIPMENT REPAIRER Physical Therapy 01/21/2020 01:00:00 PM EDT [facility] ([facility]) Outpatient Attender: MATT Westbrook/Jennifer/Hal/Reindl 01/17/2020 12:00:00 PM EDT [facility] ([facility] Outpatient Attender: Miguel A Champion/Jennifer/Hal/R eindl 12/09/2019 01:23:00 AM EDT [facility] ([facility] Immunizations Vaccine Date Status Description Data Source(s) COVID-19 VACCINE Moderna 06/25/2020 12:00:00 AM EDT completed [facility] Vaccine Series Complete: YESThis Data wa s Submitted to [facility] Via [facility]. COVID-19 VACCINE, MRNA-1273, LNP-S (MODERNA)/PF 06/25/2020 1 2:00:00 AM EDT completed [facility] COVID-19 VACCINE Moderna 05/28/2020 12:00:00 AM EST completed [facility] Vaccine Series Complete: NOThis Data was Submitted to [facility] Via [facility]. COVID-19 VACCINE, MRNA-1273, LNP-S (MODERNA)/PF 05/28/2020 1 [...] DAYS SOLD: 11/19/2020 [facility] Nystatin 034531 UNT/ML Oral Suspension Nystatin 11/12/2020 12:00:00 AM EDT completed [facility] ([facility]) 30 mg 11/08/2020 12:00:00 AM [...] 10/02/2020 12: 00:00 AM EDT active [facility] ([facility], ) 0.5 mg/2 mL 10/02/2020 12:00:00 AM [...] VIA NEBULIZER TWICE A DAY SOLD: 10/13/2020 [facility] 10 mg 09/27/2020 12:00:00 AM [...] 0 09/17/2020 12:00:00 AM EDT completed [facility] ([facility], ) Stiolto Respimat Stiolto Respimat 09/17/2020 12:00:00 AM EDT RESPIRATORY active [facility] ([facility], ) 500 mg 09/17/2020 12:00:00 AM EDT [...] 09/09/2020 12:00:00 AM EDT ORAL active [facility] ([facility]) 10 mg 08/29/2020 12:00:00 AM EDT [...] Unspecified 06/25/2020 12:00:00 AM EDT completed [facility] ([facility], ) Medication administered onsite Covid-19 vaccine, Unspecified 05/28/2020 12:00:00 AM EST completed [facility] ([facility], ) Medication administered onsite 30 mg 05/23/2020 [...] 05/15/2020 12:00:00 AM EST ORAL completed [facility] ([facility]) Pravastatin Sodium 20 MG Oral Tablet Pravastatin Sodium 07/2020 12:00:00 AM EST ORAL active [facility] ([facility]) 20 mg 05/15/2020 12:00:00 AM EST [...] 12:00:[address] ORAL completed [facility] ([facility]) 10 mg 04/08/2020 12:00:00 AM EST [...] 01/23/2020 12:00:00 AM EDT ORAL completed [facility] ([facility], ) 150 mg 01/23/2020 12:00:00 AM EDT tablet 2 TAKE ONE TABLET BY MOUTH ONCE, REPEAT IN 2 DAYS IF THRUSH PERSISTENT TAKE ONE TABLET BY MOUTH ONCE, REPEAT IN 2 DAYS IF THRUSH PERSISTENT SOLD: 01/24/2020 [facility] Trelegy Ellipta Trelegy Ellipta 01/17/2020 12:00:00 AM EDT active [facility] ([facility], ) 10 mg 01/09/2020 12:00:00 AM EDT [...] DAILY DOSE = ONE TABLET SOLD: 12/11/2019 [facility] Esomeprazole 40 MG Delayed Release Oral Capsule ESOMEPRAZOLE MAGNESIUM 08/18/2019 12:00:00 AM EDT capsule,delayed release(DR/EC) 30 TAKE ONE CAPSULE BY MOUTH EVERY DAY TAKE ONE CAPSULE BY MOUTH EVERY DAY SOLD: 06/25/2020 [facility] Esomeprazole 40 MG Delayed Release Oral Capsule ESOMEPRAZOLE MAGNESIUM 08/18/2019 12:00:00 AM EDT capsule,delayed release(DR/EC) 30 TAKE ONE CAPSULE BY MOUTH EVERY DAY TAKE ONE CAPSULE BY MOUTH EVERY DAY SOLD: 12/24/2019 [facility] Esomeprazole 40 MG Delayed Release Oral Capsule ESOMEPRAZOLE MAGNESIUM 08/18/2019 12:00:00 AM EDT capsule,delayed release(DR/EC) 30 TAKE ONE CAPSULE BY MOUTH EVERY DAY TAKE ONE CAPSULE BY MOUTH EVERY DAY SOLD: 03/24/2020 [facility] Esomeprazole 40 MG Delayed Release Oral Capsule ESOMEPRAZOLE MAGNESIUM 08/18/2019 12:00:00 AM EDT capsule,delayed release(DR/EC) 30 TAKE ONE CAPSULE BY MOUTH EVERY DAY TAKE ONE CAPSULE BY MOUTH EVERY DAY SOLD: 05/24/2020 [facility] Esomeprazole 40 MG Delayed Release Oral Capsule ESOMEPRAZOLE MAGNESIUM 08/18/2019 12:00:00 AM EDT capsule,delayed release(DR/EC) 30 TAKE ONE CAPSULE BY MOUTH EVERY DAY TAKE ONE CAPSULE BY MOUTH EVERY DAY SOLD: 02/19/2020 [facility] Esomeprazole 40 MG Delayed Release Oral Capsule ESOMEPRAZOLE MAGNESIUM 08/18/2019 12:00:00 AM EDT capsule,delayed release(DR/EC) 30 TAKE ONE CAPSULE BY MOUTH EVERY DAY TAKE ONE CAPSULE BY MOUTH EVERY DAY SOLD: 04/25/2020 [facility] Esomeprazole 40 MG Delayed Release Oral Capsule ESOMEPRAZOLE MAGNESIUM 08/18/2019 12:00:00 AM EDT capsule,delayed release(DR/EC) 30 TAKE ONE CAPSULE BY MOUTH EVERY DAY TAKE ONE CAPSULE BY MOUTH EVERY DAY SOLD: 01/21/2020 [facility] 40 mg 08/18/2019 12:00:00 AM EDT capsule,delayed release (DR/EC) 30 TAKE ONE CAPSULE BY MOUTH EVERY DAY TAKE ONE CAPSULE BY MOUTH EVERY DAY SOLD: 07/25/2020 [facility] 150 mg 08/14/2019 12:00:00 AM EDT tablet 45 TAKE ONE-HALF TABLET BY MOUTH EVERY DAY TAKE ONE-HALF TABLET BY MOUTH EVERY DAY SOLD: 02/18/2020 [facility] 150 mg 08/14/2019 12:00:00 AM EDT tablet 45 TAKE ONE-HALF TABLET BY MOUTH EVERY DAY TAKE ONE-HALF TABLET BY MOUTH EVERY DAY SOLD: 05/24/2020 [facility] 30 mg 2019 12:00:00 AM EDT [...] type / Coverage type Policy ID Covered libertarian ID Covered libertarian's relationship to gonzales Policy Gonzales Plan Information [facility] Part B [id number] Self [id number] [facility] Part B [id number] Self [id number] [facility] Part B [id number] Self [id number] [facility] Part B [id number] [facility] FEDERAL EMPLOYEE PROGRAM [id number] SP [id number] [facility] [id number] SP [id number] [facility] [id number] SP [id number] [facility] [id number] SP [id number] [employer] Preferred (Hmo) Health Maintenance Organization (HMO) [id number] [facility] FEDERAL EMPLOYEE PROGRAM [id number] SP [id number] [facility] FEDERAL EMPLOYEE PROGRAM [id number] SP [id number] [facility] FEDERAL EMPLOYEE PROGRAM [id number] SP [id number] [facility] [id number] SP [id number] [facility] FEDERAL EMPLOYEE PROGRAM [id number] SP [id number] [employer] [facility] F[employer] BS [id number] [facility] ([facility]) [id number] Self [id number] [facility] ([facility]) [id number] Self [id number] BS Fed Plan Commercial [id number] Self [id number] BS Fed Plan Commercial [id number] Self [id number] BS Fed Plan Commercial [id number] Self [id number] [employer] [facility] [employer] [id number] Self [id number] BS Fed Plan Commercial [id number] Self [id number] [employer] [facility] [employer] Commercial [id number] Self [id number] [facility] [facility] [employer] Commercial [id number] Self [id number] [facility] [facility] [employer] Commercial [id number] Self [id number] [facility] FEDERAL -O/P [id number] 18 [id number] [employer] [facility] [employer] Commercial [id number] Self [id number] BS Fed Plan Commercial [id number] Self [id number] BS Fed Plan Commercial [id number] Self [id number] BS Fed Plan Commercial [id number] Self [id number] MEDICARE COMPLETE [id number] SP [id number] MEDICARE COMPLETE [id number] SP [id number] MEDICARE [id number] SP [id number] [facility] MEDICARE COMPLE[place] [id number] 18 [id number] UN MEDICARE COMPLETE - O/P [id number] 18 [id number] MEDICARE COMPLETE-[facility] O [id number] S [id number] [place] D[place] [id number] 18 [id number] [facility] MEDICARE PART A [facility] [id number] 18 [id number] [place] DUAL COM[place] [id number] 18 [id number] [facility] [id number] SP [id number] [facility] [id number] SP [id number] MEDICARE [id number] SP [id number] [facility] [id number] SP [id number] [facility] [id number] SP [id number] [place] [facility] FEDERAL B [id number] S [id number] Problems, Conditions, and Diagnoses Code Display Name Description Problem Type Effective Dates Data Source(s) [id number] Nicotine dependence, cigarettes, uncompl icated Nicotine dependence, cigarettes, uncomplicated Diagnosis 08/21/2020 09:45:00 AM [facility] H2511 Age-related nuclear cataract, right eye Age-related nuclear cataract, right eye Diagnosis 08/21/2020 09:45:00 AM [facility] 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 Diagnosis 08/21/2020 09:45:00 AM [facility] [id number] Encounter for preprocedural laboratory e xamination Encounter for preprocedural laboratory examination Diagnosis 08/16/2020 08:50:00 AM [facility] Z1152 ENCOUNTER FOR SCREENING FOR COVID-19 ENCOUNTER F OR SCREENING FOR COVID-19 Diagnosis 08/16/2020 08:50:00 AM [facility] R99 Ill-defined and unknown cause of mortali ty Ill-defined and unknown cause of mortality Diagnosis 08/03/2020 01:26:00 PM [facility] [id number] Encounter for other preprocedural examin ation Encounter for other preprocedural examination Diagnosis 07/28/2020 10:43:00 AM [facility] H2512 Age-related nuclear cataract, left eye A ge-related nuclear cataract, left eye Diagnosis 07/17/2020 06:00:00 AM [facility] [id number] 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 O ther longterm (current) drug therapy Diagnosis 05/15/2020 12:57:00 PM [facility] E7800 Pure hypercholesterolemia, unspecified P ure hypercholesterolemia, unspecified Diagnosis 05/15/2020 12:57:00 PM [facility] 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 B enign neoplasm of right adrenal gland Diagnosis 05/15/2020 12:57:00 PM [facility] E069 Thyroiditis, unspecified Thyroiditis, unspecified Diag nosis 05/15/2020 12:57:00 PM [facility] I10 Essential (primary) hypertension Essential (primary) h ypertension Diagnosis 05/15/2020 12:57:00 PM [facility] E1165 Type 2 diabetes mellitus with hyperglyce cely Type 2 diabetes mellitus with hyperglycemia Diagnosis 05/15/2020 12:57:00 PM [facility] F331 Major depressive disorder, recurrent, mo derate Major depressive disorder, recurrent, moderate Diagnosis 05/15/2020 12:57:00 PM [facility] G4700 Insomnia, unspecified Insomnia, unspecified Diagnosis 05/15/2020 12:57:00 PM [facility] J209 Acute bronchitis, unspecified Acute bronchitis, unspec ified Diagnosis 05/15/2020 12:57:00 PM [facility] F41.9 Anxiety state Anxiety state Problem 02/13/2020 12:00:00 AM EST [facility] ([facility]) R91.1 Solitary nodule of lung Solitary nodule of lung Proble m 02/13/2020 12:00:00 AM EST [facility] ([facility]) D48.5 Neoplasm of uncertain behavior of skin N eoplasm of uncertain behavior of skin Problem 02/13/2020 12:00:00 AM EST [facility] ([facility]) 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 Problem 02/13/2020 12:00:00 AM EST [facility] ([facility]) F33.1 Moderate recurrent major depression Moderate rec urrent major depression Problem 02/13/2020 12:00:00 AM EST [facility] ([facility]) F17.218 Nicotine dependence, cigarettes, with ot her nicotine-induced disorders Nicotine dependence, cigarettes, with other nicotine-induced disorders Problem 02/13/2020 12:00:00 AM EST [facility] ([facility]) 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 Problem 02/13/2020 12:00 :00 AM EST [facility] ([facility]) Z79.899 Taking medication Taking medication Problem 02/13/2020 12:00:00 AM EST [facility] ([facility]) 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 Iatrogenic thyroiditis Problem 02/13/2020 12:00:00 AM EST [facility] ([facility]) G47.00 Insomnia Insomnia Problem 02/13/2020 12:00:00 AM ES T [facility] ([facility]) I89.0 Lymphedema Lymphedema Problem 02/13/2020 12:00:00 AM ES T [facility] ([facility]) D35.01 Benign neoplasm of adrenal gland Benign neoplasm of adrenal gland Problem 02/13/2020 12:00:00 AM EST [facility] ([facility]) E05.80 Thyrotoxicosis Thyrotoxicosis Problem 02/13/2020 12:00: 00 AM EST [facility] ([facility]) E06.9 Thyroiditis Thyroiditis Problem 02/13/2020 12:00:00 AM EST [facility] ([facility]) I10 Essential hypertension Essential hypertension Problem 02/13/2020 12:00:00 AM EST [facility] ([facility]) E11.65 Type II diabetes mellitus uncontrolled T ype II diabetes mellitus uncontrolled Problem 02/13/2020 12:00:00 AM EST [facility] ([facility]) Surgeries/Procedures Procedure Description Date Indications Data Source(s) Spirometry 01/21/2021 12:00:00 AM EDT [facility] ([facility], ) OFFICE OUTPATIENT VISIT 25 MINUTES 01/21/2021 12:00:00 AM EDT [facility] ([facility], ) OFFICE OUTPATIENT VISIT 25 MINUTES 12/08/2020 12:00:00 AM EDT [facility] ([facility]) OFFICE OUTPATIENT VISIT 15 MINUTES 11/14/2020 12:00:00 AM EDT [facility] ([facility]) LARYNGOSCOPY FLEXIBLE FIBEROPTIC DIAGNOSTIC 10/30/2020 12:00:00 AM EDT [facility] ([facility], ) OFFICE OUTPATIENT VISIT 15 MINUTES 10/30/2020 12:00:00 AM EDT [facility] ([facility], ) OFFICE OUTPATIENT VISIT 25 MINUTES 10/02/2020 12:00:00 AM EDT [facility] ([facility], ) OFFICE OUTPATIENT VISIT 25 MINUTES 09/09/2020 12:00:00 AM EDT [facility] ([facility]) OFFICE OUTPATIENT VISIT 25 MINUTES 07/10/2020 12:00:00 AM EDT [facility] ([facility]) OFFICE OUTPATIENT VISIT 25 MINUTES 06/02/2020 12:00:00 AM EST [facility] ([facility]) OFFICE OUTPATIENT VISIT 10 MINUTES 05/21/2020 12:00:00 AM EST [facility] ([facility]) OFFICE OUTPATIENT VISIT 15 MINUTES 05/19/2020 12:00:00 AM EST [facility] ([facility]) OFFICE OUTPATIENT VISIT 25 MINUTES 05/15/2020 12:00:00 AM EST [facility] ([facility]) LARYNGOSCOPY FLEXIBLE FIBEROPTIC DIAGNOSTIC 02/19/2020 12:00:00 AM EST [facility] ([facility]) Brief Emotional/Behav Assessment W/ Scoring Doc Per Standard Inst 02/13/2020 12:00:00 AM EST [facility] ([facility]) Admin Patient Focused Health Risk Assessment Instrument 02/13/2020 12:00:00 AM [facility] Results ID Date Data Source [id number] 01/04/2021 05:55:00 PM EDT [facility] ([facility]) Name Value Range Interpretation Code Description Data Vilma rce(s) Supporting Document(s) Hemoglobin 11.0 g/dL 12.0-15.5 Below low normal [facility] White Blood Count 4.7 10 4.0-10.0 Normal (applies to non-numeri c results) [facility] ([facility]) Red Blood Count 4.34 10 4.00-5.40 Normal (applies to non-numeric results) [facility] ([facility]) Hematocrit 36.7 % 36.0-47.0 Normal (applies to non-numeric resul ts) [facility] ([facility]) Mean Corpuscular Hemoglobin 25.3 pg 27.0-33.0 Below low normal [facility] ([facility]) Mean Corpuscular Volume 84.6 fl 80.0-96.0 Normal ( applies to non-numeric results) [facility] ([facility]) Mean Corpuscular HGB Conc 30.0 g/dL 32.0-36.5 Below low normal [facility] ([facility]) Red Cell Distribution Width 14.6 % 11.5-14.5 Above high normal [facility] ([facility]) Platelet Count, Automated 238 10 150-450 Normal (applies to non-numeric results) [facility] ([facility]) Neutrophils % 53.2 % 36.0-66.0 Normal (applies to non-numeric re sults) [facility] ([facility]) Lymph % 36.1 % 24.0-44.0 Normal (applies to non-numeric resul ts) [facility] ([facility]) Eos % 1.3 % 0.0-3.0 Normal (applies to non-numeric resul ts) [facility] ([facility]) Edmunds % 8.6 % 2.0-8.0 Above high normal [facility] ([facility]) Nucleated Red Blood Cell % 0.0 % 0-0 Normal (applies to n on-numeric results) [facility] ([facility]) Immature Granulocyte % 0.2 % 0-3.0 Normal (applies to non-n umeric results) [facility] ([facility]) Baso % 0.6 % 0.0-1.0 Normal (applies to non-numeric resul ts) [facility] ([facility]) Lymph # 1.7 10 1.5-5.0 Normal (applies to non-numeric resul ts) [facility] ([facility]) Neutrophils # 2.5 10 1.5-8.5 Normal (applies to non-numeric re sults) [facility] ([facility]) Edmunds # 0.4 10 0.0-0.8 Normal (applies to non-numeric resul ts) [facility] ([facility]) Baso # 0.0 10 0.0-0.2 Normal (applies to non-numeric resul ts) [facility] ([facility]) Eos # 0.1 10 0.0-0.5 Normal (applies to non-numeric resul ts) [facility] ([facility]) ID Date Data Source [id number] 01/04/2021 05:55:00 PM EDT [facility] ([facility]) Name Value Range Interpretation Code Description Data Vilma rce(s) Supporting Document(s) Glucose, Fasting 100 mg/dL 70-100 Normal (applies to non-numeric results) [facility] ([facility]) Creatinine For GFR 1.14 mg/dL 0.55-1.30 Normal (applies to non -numeric results) [facility] ([facility]) Blood Urea Nitrogen 29 mg/dL 7-18 Above high normal [facility] ([facility]) Sodium Level 135 meq/L 136-145 Below low normal [facility] ([facility]) Glomerular Filtration Rate 50.8 Normal (applies to n on-numeric results) [facility] ([facility]) <content>Units are mL/min/1.73 m2</content>
<content></content>
<content>Chronic Kidney Disease Staging per NKF:</content>
<content></content>
<content>Stage I & II GFR >=60 Normal to Mildly Decreased</content>
<content>Stage III GFR 30- 59 Moderately Decreased</content>
<content>Stage IV GFR 15-29 Severely Decreased</content>
<content>Stage V GFR <15 Very Little GFR Left</content>
<content>ESRD GFR <15 on [employer]ILDING [employer]ERIFF</content>
<content></content> Chloride Level 98 meq/L 98-107 Normal (applies to non-numeric r esults) [facility] ([facility]) Carbon Dioxide Level 36 meq/L 21-32 Above high normal [facility] ([facility]) Potassium Serum 4.5 meq/L 3.5-5.1 Normal (applies to non-numeric results) [facility] ([facility]) Calcium Level 8.0 mg/dL 8.8-10.2 Below low normal [facility] ([facility]) Anion Gap 1 meq/L 8-16 Below low normal [facility] ( [facility]) ID Date Data Source [id number] 01/04/2021 05:55:00 PM EDT [facility] ([facility]) Name Value Range Interpretation Code Description Data Vilma rce(s) Supporting Document(s) Ast/Sgot 20 U/L 7-37 Normal (applies to non-numeric resul ts) [facility] ([facility]) Alt/SGPT 37 U/L 12-78 Normal (applies to non-numeric resul ts) [facility] Alkaline Phosphatase 139 U/L 45-117 Above high normal [facility] ([facility]) Bilirubin,Direct 0.1 mg/dL 0.0-0.2 Normal (applies to non-numeric results) [facility] ([facility]) Bilirubin,Total 0.4 mg/dL 0.2-1.0 Normal (applies to non-numeric results) [facility] Albumin 2.8 GM/DL 3.2-5.2 Below low normal [facility] Total Protein 6.3 GM/DL 6.4-8.2 Below low normal [facility] ([facility]) Albumin/Globulin Ratio 0.8 1.2-2.2 Below low normal [facility] ([facility]) ID Date Data Source [id number] 01/04/2021 05:55:00 PM EDT [facility] ([facility]) Name Value Range Interpretation Code Description Data Vilma rce(s) Supporting Document(s) CK-MB Value Mass 2.1 ng/mL Normal (applies to non-numeric results) [facility] ([facility]) CPK Creatine Phosphokinase 26 U/L 26-192 Maria De Jesus l (applies to non-numeric results) [facility] ([facility]) Troponin I Laboratory test result Normal (applies to non-n umeric results) [facility] ([facility]) <content>Troponin I Reference Interval f or Siemens Weldon LOCI:</content>
<content></content>
<content>99th Percentile= 0.00-0.045 ng/ml</content>
<content></content>
<content>Risk Stratification:</content>
<content><= 0.10 ng/ml Decreased Risk for Adverse Clinical</content>
<content>Events.</content>
<content>0.10-1.50 ng/ml Increased Risk for Adverse Clinical</content>
<content>Events. Evaluation of additional</content>
<content>criterion and/or repeat testing in 2-6</content>
<content>hours is suggested to rule out myocardial</content>
<content>damage.</content>
<content>>= 1.50 ng/ml Indicative of Myocardial Injury.</content>
<content></content> MB/CK Relative Index 8.08 Above high normal [facility] ([facility]) <content>DIAGNOSIS CRITERIA</content>
<content>MMB ng/ml Relative Index (RI)</content>
<content>NON-AMI < or = 5 N/A</content>
<content>MCDONOUGH ZONE > 5 < or = 4</content>
<content>AMI > 5 > 4</content>
<content></content> ID Date Data Source [id number] 11/05/2020 12:55:00 PM EDT [facility] Name Value Range Interpretation Code Description Data Vilma rce(s) Supporting Document(s) Estimated Average Glucose 126 mg/dL 60-110 Above high normal [facility] ([facility]) Hemoglobin A1c 6.0 % Normal (applies to non-numeric r esults) [facility]) <content>REFERENCE RANGES:</content><br/ ><content></content>
<content><=5.6% NORMAL</content>
<content>5.7-6.4% SUGGESTS IMPAIRED GLUCOSE METABOLISM/PREDIABETIC</content>
<content>>= 6.5% ABNORMAL</content>
<content></content> ID Date Data Source [id number] 11/05/2020 12:55:00 PM EDT [facility] ([facility]) Name Value Range Interpretation Code Description Data Vilma rce(s) Supporting Document(s) Glucose, Fasting 105 mg/dL 70-100 Above high normal [facility] ([facility]) Glomerular Filtration Rate Laboratory test result Normal (applies to non- numeric results) [facility] ([facility]) <content>Units are mL/min/1.73 m2</content>
<content></content>
<content>Chronic Kidney Disease Staging per NKF:</content>
<content></content>
<content>Stage I & II GFR >=60 Normal to Mildly Decreased</content>
<content>Stage III GFR 30- 59 Moderately Decreased</content>
<content>Stage IV GFR 15-29 Severely Decreased</content>
<content>Stage V GFR <15 Very Little GFR Left</content>
<content>ESRD GFR <15 on [employer]</content>
<content></content> Creatinine For GFR 0.93 mg/dL 0.55-1.30 Normal (applies to non -numeric results) [facility] ([facility]) Blood Urea Nitrogen 22 mg/dL 7-18 Above high normal [facility] ([facility]) Sodium Level 140 meq/L 136-145 Normal (applies to non-numeric res ults) [facility] ([facility]) Potassium Serum 4.8 meq/L 3.5-5.1 Normal (applies to non-numeric results) [facility] ([facility]) Carbon Dioxide Level 36 meq/L 21-32 Above high normal [facility] ([facility]) Anion Gap 4 meq/L 8-16 Below low normal [facility] ( [facility]) Chloride Level 100 meq/L 98-107 Normal (applies to non-numeric r esults) [facility] ([facility]) Alt/SGPT 15 U/L 12-78 Normal (applies to non-numeric resul ts) [facility] ([facility]) Calcium Level 8.7 mg/dL 8.8-10.2 Below low normal [facility] ([facility]) Ast/Sgot 5 U/L 7-37 Below low normal [facility] ([facility]) Bilirubin,Total 0.3 mg/dL 0.2-1.0 Normal (applies to non-numeric results) [facility] ([facility]) Alkaline Phosphatase 110 U/L 45-117 Normal (applies to non-num giselle results) [facility] ([facility]) Total Protein 6.6 GM/DL 6.4-8.2 Normal (applies to non-numeric re sults) [facility] ([facility]) Albumin 3.5 GM/DL 3.2-5.2 Normal (applies to non-numeric resul ts) [facility] ([facility]) Albumin/Globulin Ratio 1.1 1.2-2.2 Below low normal [facility] ([facility]) ID Date Data Source [id number] 11/05/2020 12:55:00 PM EDT [facility] ([facility]) Name Value Range Interpretation Code Description Data Vilma rce(s) Supporting Document(s) Triglycerides Level 73 mg/dL Normal (applies to non-nume christopher results) [facility] ([facility]) Cholesterol Level 212 mg/dL Above high normal [facility] ([facility]) HDL Cholesterol 52 mg/dL Normal (applies to non-numeric results) [facility] ([facility]) LDL Cholesterol 145 mg/dL Above high normal [facility] ([facility]) Non-HDL-C 160 mg/dL Normal (applies to non-numeric resul ts) [facility] ([facility]) Cholesterol Risk Ratio 4.076 Normal (applies to non-n umeric results) [facility] ([facility]) ID Date Data Source [id number] 11/05/2020 12:55:00 PM EDT [facility] ([facility]) Name Value Range Interpretation Code Description Data Vilma rce(s) Supporting Document(s) Thyrotropin [Units/volume] in Serum or Plasma 0.927 uIU/ML 0. 358-3.740 Normal (applies to non-numeric results) [facility] ([facility]) ID Date Data Source [id number] 11/05/2020 12:55:00 PM EDT [facility] ([facility]) Name Value Range Interpretation Code Description Data Vilma rce(s) Supporting Document(s) Thyroid Stimulating Hormone 1.010 uIU/ML 0.358-3.740 Norm al (applies to non- numeric results) [facility] ([facility]) Free T4 1.22 ng/dL 0.76-1.46 Normal (applies to non-numeric resul ts) [facility] ([facility]) ID Date Data Source [id number] 11/05/2020 12:55:00 PM EDT [facility] ([facility]) Name Value Range Interpretation Code Description Data Vilma rce(s) Supporting Document(s) Red Blood Count 5.32 10 4.00-5.40 Normal (applies to non-numeric results) [facility] ([facility]) White Blood Count 5.4 10 4.0-10.0 Normal (applies to non-numeri c results) [facility] ([facility]) Hemoglobin 13.5 g/dL 12.0-15.5 Normal (applies to non-numeric resul ts) [facility] ([facility]) Hematocrit 46.0 % 36.0-47.0 Normal (applies to non-numeric resul ts) [facility] ([facility]) Mean Corpuscular Volume 86.5 fl 80.0-96.0 Normal ( applies to non-numeric results) [facility] Mean Corpuscular Hemoglobin 25.4 pg 27.0-33.0 Below low normal [facility] ([facility]) Mean Corpuscular HGB Conc 29.3 g/dL 32.0-36.5 Below low normal [facility]) Neutrophils % 56.0 % 36.0-66.0 Normal (applies to non-numeric re sults) [facility] ([facility]) Red Cell Distribution Width 15.4 % 11.5-14.5 Above high normal [facility] ([facility]) Platelet Count, Automated 186 10 150-450 Normal (applies to non-numeric results) [facility] ([facility]) Lymph % 34.4 % 24.0-44.0 Normal (applies to non-numeric resul ts) [facility] ([facility]) Edmunds % 7.3 % 2.0-8.0 Normal (applies to non-numeric resul ts) [facility] ([facility]) Eos % 1.7 % 0.0-3.0 Normal (applies to non-numeric resul ts) [facility] ([facility]) Baso % 0.6 % 0.0-1.0 Normal (applies to non-numeric resul ts) [facility] ([facility]) Immature Granulocyte % 0.0 % 0-3.0 Normal (applies to non-n umeric results) [facility] ([facility]) Nucleated Red Blood Cell % 0.0 % 0-0 Normal (applies to n on-numeric results) [facility] ([facility]) Neutrophils # 3.0 10 1.5-8.5 Normal (applies to non-numeric re sults) [facility] ([facility]) Lymph # 1.8 10 1.5-5.0 Normal (applies to non-numeric resul ts) [facility] ([facility]) Eos # 0.1 10 0.0-0.5 Normal (applies to non-numeric resul ts) [facility] ([facility]) Edmunds # 0.4 10 0.0-0.8 Normal (applies to non-numeric resul ts) [facility] ([facility]) Baso # 0.0 10 0.0-0.2 Normal (applies to non-numeric resul ts) [facility] ([facility]) ID Date Data Source [id number] 11/05/2020 12:55:00 PM EDT [facility] ([facility]) Name Value Range Interpretation Code Description Data Vilma rce(s) Supporting Document(s) Thyroid Stimulating Hormone 1.010 uIU/ML 0.358-3.740 [facility] ([facility]) Free T4 1.22 ng/dL 0.76-1.46 [facility] ([facility]) ID Date Data Source [id number] 09/21/2020 03:17:00 AM EDT [facility] Name Value Range Interpretation Code Description Data Vilma rce(s) Supporting Document(s) SARS-CoV-2 (COVID 19) NEGATIVE - SARS-CoV-2 (COVID19) [facility] This lab was ordered by [facility] a nd reported by [facility]. ID Date Data Source [id number] 08/25/2020 09:13:00 [place] [address] OPERATIVE SUMMARYNAME: JUAN Pablo DATE OF : 1955TTENDING PHYS: Casandra Jackson Jr., MD [facility] [id number] DATE: 08/21/20 MR#: [id number] OF PROCEDURE: 08/21/2020REOPERATIVE DIAGNOSIS: Visually significant cataract, [...] unit was then introduced, and using a [id number] technique, the nucleus and epi- nucleus were [...] Thelens centered well.COMPLICATIONS: None.BLOOD LOSS: Negligible. [address] [place] [address] OPERATIVE SUMMARYNAME: JUAN Pablo DATE OF : 1955TTENDING PHYS: Casandra Jackson Jr., MD DATE: 08/21/20 MR#: [id number]: Casandra Jackson Jr., MD 08/25/20 08:49DT: SSR 08/25/20 09:12DS: Casandra Jackson Jr., MD 09/18/20 11:15 2 Name Value Range Interpretation Code Description Data Vilma rce(s) Supporting Document(s) ID Date Data Source [id number] 07/17/2020 12:16:00 [place] [address] OPERATIVE SUMMARYNAME: JUAN Pablo DATE OF : 1955ENDING PHYS: Casandra Jackson Jr., MD DATE: 07/17/20 MR#: [id number] PROCEDURE: 07/17/2020REOPERATIVE DIAGNOSIS: Visually significant cataract, [...] unit was then introduced, and using a [id number]-[id number] technique, the nucleus and epi- nucleus were [...] Thelens centered well.COMPLICATIONS: None.BLOOD LOSS: Negligible. [address] [place] [address] OPERATIVE SUMMARYNAME: JUAN Pablo DATE OF : [birth year]ATTENDING PHYS: Casandra Jackson Jr., MD DATE: 07/17/20 MR#: [id number]: Casandra Jackson Jr., MD 07/17/20 11:42DT: MIR 07/17/20 12:16DS: Casandra Jackson Jr., MD 09/18/20 11:15 2 Name Value Range Interpretation Code Description Data Vilma rce(s) Supporting Document(s) ID Date Data Source [id number] 08/16/2020 08:40:00 AM EDT [facility] Name Value Range Interpretation Code Description Data Vilma rce(s) Supporting Document(s) SARS coronavirus 2 RNA Not Detected [facility] This lab was ordered by [facility] antonio and reported by [employer]. ID Date Data Source [id number] 08/17/2020 01:27:00 PM EDT [facility] Name Value Range Interpretation Code Description Data Vilma rce(s) Supporting Document(s) SARS-CoV-2, GUSTAVO Not Detected Not Detected [facility] This nucleic acid amplification test was [...] assay. SARS-CoV-2, GUSTAVO 2 DAY TAT Performed [facility] ID Date Data Source [id number] 07/28/2020 09:00:00 AM EDT [facility] Name Value Range Interpretation Code Description Data Vilma rce(s) Supporting Document(s) SARS coronavirus 2 RNA Not Detected [facility] This lab was ordered by [facility] Rashid alvarez and reported by [employer]. ID Date Data Source [id number] 07/29/2020 09:28:00 PM EDT [facility] Name Value Range Interpretation Code Description Data Vilma rce(s) Supporting Document(s) SARS-CoV-2, GUSTAVO Not Detected Not Detected [facility] This nucleic acid amplification test was developed and its performancecharacteristics determined by [employer]. Nucleic acidamplification tests include RT-PCR and TMA. [...] assay. SARS-CoV-2, GUSTAVO 2 DAY TAT Performed [facility] ID Date Data Source [id number] 07/12/2020 08:18:00 AM EDT [facility] Name Value Range Interpretation Code Description Data Vilma rce(s) Supporting Document(s) SARS coronavirus 2 RNA Not Detected [facility] and reported by [employer]. ID Date Data Source [id number] 07/14/2020 06:45:00 AM EDT [facility] Name Value Range Interpretation Code Description Data Vilma rce(s) Supporting Document(s) SARS-CoV-2, GUSTAVO Not Detected Not Detected [facility] This nucleic acid amplification test was developed and its performancecharacteristics determined by [employer]. Nucleic acidamplification tests include RT-PCR and TMA. [...] assay. SARS-CoV-2, GUSTAVO 2 DAY TAT Performed [facility] ID Date Data Source [id number] 07/03/2020 03:31:00 PM EDT [facility] ([facility]) Name Value Range Interpretation Code Description Data Vilma rce(s) Supporting Document(s) Blood Urea Nitrogen 21 mg/dL 7-18 Above high normal [facility] ([facility]) Glucose, Fasting 137 mg/dL 70-100 Above high normal [facility] ([facility]) Creatinine For GFR 1.07 mg/dL 0.55-1.30 Normal (applies to non -numeric results) [facility] ([facility]) Glomerular Filtration Rate 54.8 Normal (applies to n on-numeric results) [facility] ([facility]) <content>Units are mL/min/1.73 m2</content>
<content></content>
<content>Chronic Kidney Disease Staging per NKF:</content>
<content></content>
<content>Stage I & II GFR >=60 Normal to Mildly Decreased</content>
<content>Stage III GFR 30- 59 Moderately Decreased</content>
<content>Stage IV GFR 15-29 Severely Decreased</content>
<content>Stage V GFR <15 Very Little GFR Left</content>
<content>ESRD GFR <15 on [employer]IFF</content>
<content></content> Sodium Level 133 meq/L 136-145 Below low normal [facility] ([facility]) Chloride Level 98 meq/L 98-107 Normal (applies to non-numeric r esults) [facility] ([facility]) Potassium Serum 4.1 meq/L 3.5-5.1 Normal (applies to non-numeric results) [facility] ([facility]) Calcium Level 8.4 mg/dL 8.8-10.2 Below low normal [facility] ([facility]) Anion Gap 2 meq/L 8-16 Below low normal [facility] ( [facility]) Carbon Dioxide Level 33 meq/L 21-32 Above high normal [facility] ([facility]) Ast/Sgot 5 U/L 7-37 Below low normal [facility] ([facility]) Alt/SGPT 8 U/L 12-78 Below low normal [facility] ([facility]) Alkaline Phosphatase 114 U/L 45-117 Normal (applies to non-num giselle results) [facility] ([facility]) Bilirubin,Total 0.2 mg/dL 0.2-1.0 Normal (applies to non-numeric results) [facility] ([facility]) Total Protein 6.7 GM/DL 6.4-8.2 Normal (applies to non-numeric re sults) [facility] ([facility]) Albumin 3.3 GM/DL 3.2-5.2 Normal (applies to non-numeric resul ts) [facility] ([facility]) Albumin/Globulin Ratio 1.0 1.2-2.2 Below low normal [facility] ([facility]) ID Date Data Source [id number] 07/03/2020 03:31:00 PM EDT [facility] ([facility]) Name Value Range Interpretation Code Description Data Vilma rce(s) Supporting Document(s) Red Blood Count 4.92 10 4.00-5.40 Normal (applies to non-numeric results) [facility] ([facility]) White Blood Count 5.9 10 4.0-10.0 Normal (applies to non-numeri c results) [facility] ([facility]) Hemoglobin 12.6 g/dL 12.0-15.5 Normal (applies to non-numeric resul ts) [facility] ([facility]) Hematocrit 40.6 % 36.0-47.0 Normal (applies to non-numeric resul ts) [facility] ([facility]) Mean Corpuscular Volume 82.5 fl 80.0-96.0 Normal ( applies to non-numeric results) [facility] ([facility]) Mean Corpuscular HGB Conc 31.0 g/dL 32.0-36.5 Below low normal [facility] ([facility]) Mean Corpuscular Hemoglobin 25.6 pg 27.0-33.0 Below low normal [facility] ([facility]) Platelet Count, Automated 208 10 150-450 Normal (applies to non-numeric results) [facility] ([facility]) Red Cell Distribution Width 14.6 % 11.5-14.5 Above high normal [facility] ([facility]) Neutrophils % 55.0 % 36.0-66.0 Normal (applies to non-numeric re sults) [facility] ([facility]) Lymph % 37.0 % 24.0-44.0 Normal (applies to non-numeric resul ts) [facility] ([facility]) Edmunds % 6.3 % 2.0-8.0 Normal (applies to non-numeric resul ts) [facility] ([facility]) Baso % 0.3 % 0.0-1.0 Normal (applies to non-numeric resul ts) [facility] ([facility]) Eos % 1.2 % 0.0-3.0 Normal (applies to non-numeric resul ts) [facility] ([facility]) Immature Granulocyte % 0.2 % 0-3.0 Normal (applies to non-n umeric results) [facility] ([facility]) Nucleated Red Blood Cell % 0.0 % 0-0 Normal (applies to n on-numeric results) [facility] ([facility]) Lymph # 2.2 10 1.5-5.0 Normal (applies to non-numeric resul ts) [facility] ([facility]) Neutrophils # 3.3 10 1.5-8.5 Normal (applies to non-numeric re sults) [facility] ([facility]) Eos # 0.1 10 0.0-0.5 Normal (applies to non-numeric resul ts) [facility] ([facility]) Edmunds # 0.4 10 0.0-0.8 Normal (applies to non-numeric resul ts) [facility] ([facility]) Baso # 0.0 10 0.0-0.2 Normal (applies to non-numeric resul ts) [facility] ([facility]) ID Date Data Source [id number] 05/01/2020 01:08:00 PM EST [facility] ([facility]) Name Value Range Interpretation Code Description Data Vilma rce(s) Supporting Document(s) Thyroid Stimulating Hormone 0.885 uIU/ML 0.358-3.740 [facility] ([facility]) Free T4 1.21 ng/dL 0.76-1.46 [facility] ([facility]) ID Date Data Source [id number] 03/26/2020 02:21:00 PM EST [facility] ([facility]) Name Value Range Interpretation Code Description Data Vilma rce(s) Supporting Document(s) Carcinoembryonic Ag [Mass/volume] in Serum or Plasma 3.0 ng/mL Above high normal [facility] ([facility]) THE CEA ASSAY IS PERFORMED ON THE [employer] BY CHEMILUMINESCENCE AND SHOULD NOT BE COMPARED INTERCHANGEABLY WITH OTHER METHODS. IT SHOULD NOT BE USED ALONE A SCREENING TEST OR DIAGNOSIS FOR THE PRESENCE OR ABSENCE OF MALIGNANT DISEASE. PREDICTIONS OF DISEASE RECURRENCE SHOULD NOT BE BASED SOLELY ON VALUES OBTAINED FROM SERIAL PATIENT SERUM VALUES. ID Date Data Source [id number] 03/26/2020 02:21:00 PM EST [facility] ([facility]) Name Value Range Interpretation Code Description Data Vilma rce(s) Supporting Document(s) Glucose, Fasting 97 mg/dL 70-100 Normal (applies to non-numeric results) [facility] ([facility]) Blood Urea Nitrogen 19 mg/dL 7-18 Above high normal [facility] ([facility]) Creatinine For GFR 1.13 mg/dL 0.55-1.30 Normal (applies to non -numeric results) [facility] ([facility]) Glomerular Filtration Rate 51.4 Normal (applies to n on-numeric results) [facility] ([facility]) <content>Units are mL/min/1.73 m2</content>
<content></content>
<content>Chronic Kidney Disease Staging per NKF:</content>
<content></content>
<content>Stage I & II GFR >=60 Normal to Mildly Decreased</content>
<content>Stage III GFR 30- 59 Moderately Decreased</content>
<content>Stage IV GFR 15-29 Severely Decreased</content>
<content>Stage V GFR <15 Very Little GFR Left</content>
<content>ESRD GFR <15 on [employer]</content>
<content></content> Sodium Level 137 meq/L 136-145 Normal (applies to non-numeric res ults) [facility] ([facility]) Chloride Level 102 meq/L 98-107 Normal (applies to non-numeric r esults) [facility] ([facility]) Potassium Serum 4.6 meq/L 3.5-5.1 Normal (applies to non-numeric results) [facility] ([facility]) Carbon Dioxide Level 33 meq/L 21-32 Above high normal [facility] ([facility]) Anion Gap 2 meq/L 8-16 Below low normal [facility] ( [facility]) Calcium Level 9.0 mg/dL 8.8-10.2 Normal (applies to non-numeric re sults) [facility] ([facility]) Ast/Sgot Laboratory test result 7-37 Below low normal [facility] ([facility]) Alt/SGPT 10 U/L 12-78 Below low normal [facility] ( [facility]) Alkaline Phosphatase 125 U/L 45-117 Above high normal [facility] ([facility]) Bilirubin,Total 0.3 mg/dL 0.2-1.0 Normal (applies to non-numeric results) [facility] ([facility]) Total Protein 6.8 GM/DL 6.4-8.2 Normal (applies to non-numeric re sults) [facility] ([facility]) Albumin/Globulin Ratio 0.9 1.2-2.2 Below low normal [facility] ([facility]) Albumin 3.2 GM/DL 3.2-5.2 Normal (applies to non-numeric resul ts) [facility] ([facility]) ID Date Data Source [id number] 03/26/2020 02:21:00 PM EST [facility] ([facility]) Name Value Range Interpretation Code Description Data Vilma rce(s) Supporting Document(s) Red Blood Count 5.15 10 4.00-5.40 Normal (applies to non-numeric results) [facility] ([facility]) White Blood Count 5.5 10 4.0-10.0 Normal (applies to non-numeri c results) [facility] ([facility]) Hemoglobin 13.1 g/dL 12.0-15.5 Normal (applies to non-numeric resul ts) [facility] ([facility]) Hematocrit 42.9 % 36.0-47.0 Normal (applies to non-numeric resul ts) [facility] ([facility]) Mean Corpuscular Volume 83.3 fl 80.0-96.0 Normal ( applies to non-numeric results) [facility] ([facility]) Mean Corpuscular HGB Conc 30.5 g/dL 32.0-36.5 Below low normal [facility] ([facility]) Mean Corpuscular Hemoglobin 25.4 pg 27.0-33.0 Below low normal [facility] ([facility]) Red Cell Distribution Width 15.4 % 11.5-14.5 Above high normal [facility] ([facility]) Platelet Count, Automated 230 10 150-450 Normal (applies to non-numeric results) [facility] ([facility]) Lymph % 34.6 % 24.0-44.0 Normal (applies to non-numeric resul ts) [facility] ([facility]) Neutrophils % 54.6 % 36.0-66.0 Normal (applies to non-numeric re sults) [facility] ([facility]) Eos % 1.3 % 0.0-3.0 Normal (applies to non-numeric resul ts) [facility] ([facility]) Edmunds % 8.6 % 0.0-5.0 Above high normal [facility] ([facility]) Baso % 0.5 % 0.0-1.0 Normal (applies to non-numeric resul ts) [facility] ([facility]) Immature Granulocyte % 0.4 % 0-3.0 Normal (applies to non-n umeric results) [facility] ([facility]) Nucleated Red Blood Cell % 0.0 % 0-0 Normal (applies to n on-numeric results) [facility] ([facility]) Lymph # 1.9 10 1.5-5.0 Normal (applies to non-numeric resul ts) [facility] ([facility]) Neutrophils # 3.0 10 1.5-8.5 Normal (applies to non-numeric re sults) [facility] ([facility]) Edmunds # 0.5 10 0.0-0.8 Normal (applies to non-numeric resul ts) [facility] ([facility]) Eos # 0.1 10 0.0-0.5 Normal (applies to non-numeric resul ts) [facility] ([facility]) Baso # 0.0 10 0.0-0.2 Normal (applies to non-numeric resul ts) [facility] ([facility]) ID Date Data Source [id number] 02/13/2020 11:16:00 AM EST [facility] ([facility]) Name Value Range Interpretation Code Description Data Vilma rce(s) Supporting Document(s) Thyrotropin [Units/volume] in Serum or Plasma 0.58 uIU/mL 0.47-5.01 [facility] ([facility]) Is patient fasting? Y ID Date Data Source [id number] 02/13/2020 11:16:00 AM EST [facility] ([facility]) Name Value Range Interpretation Code Description Data Vilma rce(s) Supporting Document(s) Cve Panel Laboratory test result [facility] ([facility]) Is patient fasting? Y Cholesterol 257 mg/dL 131-200 Above high normal [facility] ([facility]) Is patient fasting? Y HDL 45 mg/dL 29-86 [facility] ([facility]) Is patient fasting? Y Triglycerides 124 mg/dL 35-160 [facility] ([facility]) Is patient fasting? Y LDL 184 mg/dL 65-175 Above high normal [facility] ([facility]) Is patient fasting? Y Risk Factor 5.7 3.2-4.4 Above high normal [facility] ([facility]) Is patient fasting? Y LDL/HDL 4.09 1.47-3.22 Above high normal [facility] ([facility]) Is patient fasting? Y ID Date Data Source [id number] 02/13/2020 11:16:00 AM EST [facility] ([facility]) Name Value Range Interpretation Code Description Data Vilam rce(s) Supporting Document(s) Hemoglobin A1c/Hemoglobin.total in Blood 6.6 % 4.4-6.1 Above high normal [facility] ([facility]) Is patient fasting? Y ID Date Data Source [id number] 02/13/2020 11:16:00 AM EST [facility] ([facility]) Name Value Range Interpretation Code Description Data Vilma e(s) Supporting Document(s) Comprehensive [employer] Laboratory test result [facility] ([facility]) Is patient fasting? Y Sodium 138 meq/L 134-153 [facility] ([facility]) Is patient fasting? Y Chloride 100 meq/L 98-107 [facility] ([facility]) Is patient fasting? Y Potassium 4.4 meq/L 3.6-5.0 [facility] ([facility]) Is patient fasting? Y Glucose 114 mg/dL 65-110 Above high normal [facility] ([facility]) Is patient fasting? Y Co2 31 meq/L 22-30 Above high normal [facility] ([facility]) Is patient fasting? Y Creatinine 1.2 mg/dL 0.7-1.5 [facility] ([facility]) Is patient fasting? Y BUN 19 mg/dL 7-21 [facility] ([facility]) Is patient fasting? Y BUN/Creat 16 8-27 [facility] ([facility]) Is patient fasting? Y Albumin 4.3 g/dL 3.9-5.0 [facility] ([facility]) Is patient fasting? Y Total Protein 6.9 g/dL 6.3-8.2 [facility] ([facility]) Is patient fasting? Y Globulin 2.6 GM/DL 2.4-3.2 [facility] ([facility]) Is patient fasting? Y A/G Ratio 1.7 0.8-2.0 [facility] ([facility]) Is patient fasting? Y Total Bili Laboratory test result 0.2-1.3 [facility] ([facility]) Is patient fasting? Y Calcium 9.2 mg/dL 8.4-10.2 [facility] ([facility]) Is patient fasting? Y SGPT/Alt 5 U/L 7-56 Below low normal [facility] ([facility]) Is patient fasting? Y Sgot/Ast 9 U/L 5-40 [facility] ([facility]) Is patient fasting? Y Alkaline Phos 98 U/L 38-126 [facility] ([facility]) Is patient fasting? Y Anion Gap 7.0 mmol/L 8.0-16.0 Below low normal [facility] ( [facility]) Is patient fasting? Y Age 64 yrs [facility] ([facility]) Is patient fasting? Y Non-Aa GFR 48 mL/min [facility] ([facility]) Is patient fasting? Y Afr Amer GFR Laboratory test result [facility] ([facility]) Is patient fasting? Y ID Date Data Source [id number] 02/13/2020 11:16:00 AM EST [facility] ([facility]) Name Value Range Interpretation Code Description Data Vilma rce(s) Supporting Document(s) CBC W/Automated Diff Laboratory test result [facility] ([facility]) Is patient fasting? Y RBC 5.39 10^6/uL 4.20-5.40 [facility] ([facility]) Is patient fasting? Y WBC 5.2 10^3/uL 4.2-11.0 [facility] Is patient fasting? Y Hemoglobin 13.5 g/dL 12.0-16.0 [facility] ([facility]) Is patient fasting? Y Hematocrit 44.3 % 37.0-47.0 [facility] ([facility]) Is patient fasting? Y MCH 25.0 pg 27.0-34.0 Below low normal [facility] ( [facility]) Is patient fasting? Y MCV 82.2 fL 81.0-101 [facility] ([facility]) Is patient fasting? Y MCHC 30.5 g/dL 31.0-36.0 Below low normal [facility] ( [facility]) Is patient fasting? Y RDW 15.1 % 11.5-14.5 Above high normal [facility] ([facility]) Is patient fasting? Y Platelets 211 10^3/uL 150-450 [facility] Is patient fasting? Y Neut 48.2 % 37.0-80.0 [facility] ([facility]) Is patient fasting? Y MPV 8.9 fL 7.4-10.4 [facility] ([facility]) Is patient fasting? Y Lymph 42.3 % 25.0-40.0 Above high normal [facility] ([facility]) Is patient fasting? Y Edmunds 6.2 % 3.0-8.0 [facility] ([facility]) Is patient fasting? Y Eos 2.3 % 0.0-7.0 [facility] ([facility]) Is patient fasting? Y Baso 0.6 % 0.0-2.5 [facility] ([facility]) Is patient fasting? Y %Ig 0.4 % 0.0-0.0 Above high normal [facility] ([facility]) Is patient fasting? Y %NRBC 0.0 % 0.0-0.0 [facility] ([facility]) Is patient fasting? Y #Edmunds 0.32 10^3/uL 0.00-0.90 [facility] ([facility]) Is patient fasting? Y #Lymph 2.19 10^3/uL 0.60-3.40 [facility] ([facility]) Is patient fasting? Y #Neut 2.50 10^3/uL 2.00-6.90 [facility] ([facility]) Is patient fasting? Y #Eos 0.12 10^3/uL 0.00-0.70 [facility] ([facility]) Is patient fasting? Y #Baso 0.03 10^3/uL 0.00-0.20 [facility] ([facility]) Is patient fasting? Y #NRBC 0.00 10^3/uL 0.00-0.00 [facility] ([facility]) Is patient fasting? Y #Ig 0.02 10^3/uL 0.00-0.10 [facility] ([facility]) Is patient fasting? Y Manual Diff Laboratory test result [facility] ([facility]) Is patient fasting? Y RBC Morph Laboratory test result [facility] ([facility]) Is patient fasting? Y ID Date Data Source [id number] 02/13/2020 05:48:00 PM [facility] Name Value Range Interpretation Code Description Data Vilma rce(s) Supporting Document(s) Thyrotropin [Units/volume] in Serum or Plasma by Detec tion limit <= 0.05 mIU/L 0.58 uIU/mL 0.47 - 5.01 [facility] ID Date Data Source [id number] 02/13/2020 05:35:00 PM [facility] Name Value Range Interpretation Code Description Data Vilma rce(s) Supporting Document(s) CVE PANEL [facility] LIPID PANEL Cholesterol [Mass/volume] in Serum or Plasma 257 MG/DL 131 - 200 H [facility] Deprecated Triglyceride [Mass/volume] in Serum or Plasma 124 MG/DL 3 5 - 160 [facility] HDL 45 MG/DL 29 - 86 [facility] Cholesterol in LDL [Mass/volume] in Serum or Plasma by Direc t assay 184 mg/dL 65 - 175 H [facility] Cholesterol.total/Cholesterol in HDL [Mass Ratio] in Serum o r Plasma 5.7 3.2 - 4.4 H [facility] LDL/HDL 4.09 1.47 - 3.22 H [facility] CVE RISK CHOL/HDL LDL/HDLMEN: 1/2 AVERAGE 3.43 1.00 AVERAGE 4.97 3.55 2X AVERAGE 9.55 6.25 3X AVERAGE 23.99 7.99WOMEN: 1/2 AVERAGE 3.27 1.47 AVERAGE 4.44 3.22 2X AVERAGE 7.05 5.03 3X AVERAGE 11.04 6.14 ID Date Data Source [id number] 02/13/2020 05:35:00 PM [facility] Name Value Range Interpretation Code Description Data Vilma rce(s) Supporting Document(s) COMPREHENSIVE METABOLIC PANEL [facility] COMPREHENSIVE METABOLIC PANEL Sodium [Moles/volume] in Serum or Plasma 138 mEq/L 134 - 153 [facility] Potassium [Moles/volume] in Serum or Plasma 4.4 mEq/L 3.6 - 5.0 [facility] Chloride [Moles/volume] in Serum or Plasma 100 mEq/L 98 - 107 [facility] Carbon dioxide, total [Moles/volume] in Serum or Plasma 31 MEQ/L 22 - 30 H [facility] Glucose [Mass/volume] in Serum or Plasma 114 MG/DL 65 - 110 H [facility] BUN 19 MG/DL 7 - 21 [facility] Creatinine [Mass/volume] in Serum or Plasma 1.2 MG/DL 0.7 - 1.5 [facility] BUN/CREAT 16 8 - 27 [facility] Protein [Mass/volume] in Serum or Plasma 6.9 G/DL 6.3 - 8.2 [facility] Albumin [Mass/volume] in Serum or Plasma 4.3 G/DL 3.9 - 5.0 [facility] Globulin [Mass/volume] in Serum by calculation 2.6 GM/DL 2.4 - 3.2 [facility] A/G RATIO 1.7 0.8 - 2.0 [facility] Calcium [Mass/volume] in Serum or Plasma 9.2 MG/DL 8.4 - 10.2 [facility] Bilirubin.total [Mass/volume] in Serum or Plasma <0.7 MG/DL 0.2 - 1.3 [facility] Alkaline phosphatase [Enzymatic activity/volume] in Serum or Plasma 98 U/L 38 - 126 [facility] Aspartate aminotransferase [Enzymatic activity/volume] in Se rum or Plasma 9 U/L 5 - 40 [facility] Alanine aminotransferase [Enzymatic activity/volume] in Seru m or Plasma 5 U/L 7 - 56 L [facility] Anion gap 3 in Serum or Plasma 7.0 mmol/L 8.0 - 16.0 L [facility] 64 [facility] mL/min [facility] AFR AMER GFR >60 [facility] Male GFR In terprentation 20-49 [...] >32 mL/min Normal ID Date Data Source [id number] 02/13/2020 05:22:00 PM EST [facility] Name Value Range Interpretation Code Description Data Vilma rce(s) Supporting Document(s) Hemoglobin A1c/Hemoglobin.total in Blood 6.6 % 4.4 - 6.1 H [facility] {A1]{HB] ID Date Data Source [id number] 02/13/2020 05:19:00 PM EST [facility] Name Value Range Interpretation Code Description Data Vilma [facility](s) Supporting Document(s) CBC W/AUTOMATED DIFF [facility] COMPLETE BLOOD COUNT Leukocytes [#/volume] in Blood by Automated count 5.2 10^3/uL 4.2 - 1 1.0 [facility] Erythrocytes [#/volume] in Blood by Automated count 5.39 10^6/uL 4. 20 - 5.40 [facility] Hemoglobin [Mass/volume] in Blood 13.5 g/dL 12.0 - 16.0 [facility] Hematocrit [Volume Fraction] of Blood by Automated count 44.3 % 3 7.0 - 47.0 [facility] Erythrocyte mean corpuscular volume [Entitic volume] by Auto mated count 82.2 fL 81.0 - 101 [facility] Erythrocyte mean corpuscular hemoglobin [Entitic mass] by Automated count 25.0 pg 27.0 - 34.0 L [facility] Erythrocyte mean corpuscular hemoglobin concentration [Mass/volume] by Automated count 30.5 g/dL 31.0 - 36.0 L [facility] Erythrocyte distribution width [Ratio] by Automated count 15.1 % 11.5 - 14.5 H [facility] Platelets [#/volume] in Blood by Automated count 211 10^3/uL 150 - 45 0 [facility] Platelet mean volume [Entitic volume] in Blood by Automated count 8.9 fL 7.4 - 10.4 [facility] Neutrophils/100 leukocytes in Blood by Automated count 48.2 % 37. 0 - 80.0 [facility] Lymphocytes/100 leukocytes in Blood by Manual count 42.3 % 25.0 - 40.0 H [facility] Monocytes/100 leukocytes in Blood by Automated count 6.2 % 3.0 - 8.0 [facility] Eosinophils/100 leukocytes in Blood by Automated count 2.3 % 0.0 - 7.0 [facility] Basophils/100 leukocytes in Blood by Automated count 0.6 % 0.0 - 2.5 [facility] %IG 0.4 % 0.0 - 0.0 H [facility] %NRBC 0.0 % 0.0 - 0.0 [facility] Neutrophils [#/volume] in Blood by Automated count 2.50 10^3/uL 2.00 - 6.90 [facility] Lymphocytes [#/volume] in Blood by Automated count 2.19 10^3/uL 0.60 - 3.40 [facility] Monocytes [#/volume] in Blood by Automated count 0.32 10^3/uL 0.00 - 0.90 [facility] Eosinophils [#/volume] in Blood by Automated count 0.12 10^3/uL 0.00 - 0.70 [facility] Basophils [#/volume] in Blood by Automated count 0.03 10^3/uL 0.00 - 0.20 [facility] #IG 0.02 10^3/uL 0.00 - 0.10 [facility] ospital #NRBC 0.00 10^3/uL 0.00 - 0.00 [facility] ospital MANUAL DIFF NOT INDICATED [facility] RBC MORPH NOT INDICATED [facility] spital ID Date Data Source [id number] 12/25/2019 12:59:00 PM EDT [facility] ([facility]) Name Value Range Interpretation Code Description Data Vilma rce(s) Supporting Document(s) Hemoglobin 11.1 g/dL 12.0-15.5 Below low normal [facility] ( [facility]) Red Blood Count 4.37 10 4.00-5.40 Normal (applies to non-numeric results) [facility] ([facility]) White Blood Count 3.6 10 4.0-10.0 Below low normal M EDENT ([facility]) Hematocrit 37.3 % 36.0-47.0 Normal (applies to non-numeric resul ts) [facility] ([facility]) Mean Corpuscular Hemoglobin 25.4 pg 27.0-33.0 Below low normal [facility] ([facility]) Mean Corpuscular Volume 85.4 fl 80.0-96.0 Normal ( applies to non-numeric results) [facility] ([facility]) Mean Corpuscular HGB Conc 29.8 g/dL 32.0-36.5 Below low normal [facility] ([facility]) Platelet Count, Automated 218 10 150-450 Normal (applies to non-numeric results) [facility] Red Cell Distribution Width 14.7 % 11.5-14.5 Above high normal [facility] ([facility]) Eos % 1.7 % 0.0-3.0 Normal (applies to non-numeric resul ts) [facility] ([facility]) Edmunds % 8.4 % 0.0-5.0 Above high normal [facility] ([facility]) Neutrophils % 64.7 % 36.0-66.0 Normal (applies to non-numeric re sults) [facility] ([facility]) Lymph % 24.3 % 24.0-44.0 Normal (applies to non-numeric resul ts) [facility] ([facility]) Immature Granulocyte % 0.3 % 0-3.0 Normal (applies to non-n umeric results) [facility] ([facility]) Baso % 0.6 % 0.0-1.0 Normal (applies to non-numeric resul ts) [facility] ([facility]) Nucleated Red Blood Cell % 0.0 % 0-0 Normal (applies to n on-numeric results) [facility]) Neutrophils # 2.3 10 1.5-8.5 Normal (applies to non-numeric re sults) [facility] ([facility]) Lymph # 0.9 10 1.5-5.0 Below low normal [facility] ( [facility]) Edmunds # 0.3 10 0.0-0.8 Normal (applies to non-numeric resul ts) [facility] ([facility]) Baso # 0.0 10 0.0-0.2 Normal (applies to non-numeric resul ts) [facility] ([facility]) Eos # 0.1 10 0.0-0.5 Normal (applies to non-numeric resul ts) [facility] ([facility]) ID Date Data Source [id number] 12/25/2019 12:59:00 PM EDT [facility] ([facility]) Name Value Range Interpretation Code Description Data Vilma rce(s) Supporting Document(s) Creatinine For GFR 1.09 mg/dL 0.55-1.30 Normal (applies to non -numeric results) [facility] Blood Urea Nitrogen 14 mg/dL 7-18 Normal (applies to non-nume christopher results) [facility]) Glucose, Fasting 114 mg/dL 70-100 Above high normal M EDENT ([facility]) Chloride Level 104 meq/L 98-107 Normal (applies to non-numeric r esults) [facility] Sodium Level 140 meq/L 136-145 Normal (applies to non-numeric res ults) [facility]) Potassium Serum 4.5 meq/L 3.5-5.1 Normal (applies to non-numeric results) [facility] ([facility]) Glomerular Filtration Rate 53.6 Normal (applies to n on-numeric results) [facility]) <content>Units are mL/min/1.73 m2</content>
<content></content>
<content>Chronic Kidney Disease Staging per NKF:</content>
<content></content>
<content>Stage I & II GFR >=60 Normal to Mildly Decreased</content>
<content>Stage III GFR 30- 59 Moderately Decreased</content>
<content>Stage IV GFR 15-29 Severely Decreased</content>
<content>Stage V GFR <15 Very Little GFR Left</content>
<content>ESRD GFR <15 on [employer]</content>
<content></content> Anion Gap 2 meq/L 8-16 Below low normal [facility] ( [facility]) Carbon Dioxide Level 34 meq/L 21-32 Above high normal [facility] ([facility]) Calcium Level 8.8 mg/dL 8.8-10.2 Normal (applies to non-numeric re sults) [facility] ([facility]) Alt/SGPT 14 U/L 12-78 Normal (applies to non-numeric resul ts) [facility] ([facility]) Alkaline Phosphatase 112 U/L 45-117 Normal (applies to non-num giselle results) [facility] ([facility]) Ast/Sgot 5 U/L 7-37 Below low normal [facility] ([facility]) Albumin 2.9 GM/DL 3.2-5.2 Below low normal [facility] ( [facility]) Total Protein 6.6 GM/DL 6.4-8.2 Normal (applies to non-numeric re sults) [facility] ([facility]) Albumin/Globulin Ratio 0.8 1.2-2.2 Below low normal [facility] ([facility]) Bilirubin,Total 0.3 mg/dL 0.2-1.0 Normal (applies to non-numeric results) [facility] ([facility]) ID Date Data Source [id number] 12/25/2019 12:59:00 PM EDT [facility] Name Value Range Interpretation Code Description Data Vilma rce(s) Supporting Document(s) Carcinoembryonic Ag [Mass/volume] in Serum or Plasma 1.0 ng/mL Normal (applies to non-numeric results) [facility] ([facility]) THE CEA ASSAY IS PERFORMED ON THE [employer] BY CHEMILUMINESCENCE AND SHOULD NOT BE COMPARED INTERCHANGEABLY WITH OTHER METHODS. IT SHOULD NOT BE USED ALONE A SCREENING TEST OR DIAGNOSIS FOR THE PRESENCE OR ABSENCE OF MALIGNANT DISEASE. PREDICTIONS OF DISEASE RECURRENCE SHOULD NOT BE BASED SOLELY ON VALUES OBTAINED FROM SERIAL PATIENT SERUM VALUES. ID Date Data Source [id number] 12/25/2019 12:58:00 PM EDT [facility] ([facility] ) Name Value Range Interpretation Code Description Data Vilma rce(s) Supporting Document(s) Thyroid Stimulating Hormone 0.856 uIU/ML 0.358-3.740 [facility] ([facility]) Free T4 1.41 ng/dL 0.76-1.46 [facility] ([facility] ) Procedure Social History No Information Vital Signs ID Date Data Source UNK Name Value Range Interpretation Code Description Data Source(s) Body mass index (BMI) [Ratio] 24.1 kg/m2 24.1 k g/m2 [facility] ([facility]) Systolic blood pressure 136 mm[Hg] 136 mm[Hg] M [facility]ENT ([facility]) Diastolic blood pressure 70 mm[Hg] 70 mm[Hg] [facility] [place] body weight 125 [lb_av] 125 [lb_av] [facility] T ([facility]) Body weight 66.679 kg 66.679 kg [facility] ([facility]) Body surface area Derived from formula 1.75 m2 1.75 m2 [facility] ([facility]) Oxygen saturation in Arterial blood by Pulse oximetry 94 % 94 % [facility] ([facility]) o2 3L continuous 79 on 3L ocd Body height 65.50 [in_i] 65.50 [in_i] [facility] ([facility]) 5'5.50" Body weight 147.00 [lb_av] 147.00 [lb_av] [facility] T ([facility]) Heart rate 86 /min 86 /min [facility] ([facility]) Body weight 60.839 kg 60.839 kg [facility] ([facility]) Body mass index (BMI) [Ratio] 21.6 kg/m2 21.6 k g/m2 [facility] Body surface area Derived from formula 1.69 m2 1.69 m2 [facility] ([facility]) Diastolic blood pressure 86 mm[Hg] 86 mm[Hg] [facility] ([facility]) Heart rate 89 /min 89 /min [facility] ([facility]) Body temperature 97.2 [degF] 97.2 [degF] [facility] ([facility]) Respiratory rate 16 /min 16 /min [facility] ( [facility]) Oxygen saturation in Arterial blood by Pulse oximetry 95 % 95 % [facility] ([facility]) Body weight 134.12 [lb_av] 134.12 [lb_av] [facility] T ([facility]) Systolic blood pressure 142 mm[Hg] 142 mm[Hg] M [facility] ([facility]) Body height 66 [in_i] 66 [in_i] [facility] ([facility]) 5'6" Heart rate 96 /min 96 /min [facility] ([facility] ) Body height 64.5 [in_i] 64.5 [in_i] [facility] ([facility] ) 5'4.50" Oxygen saturation in Arterial blood by Pulse oximetry 95 % 95 % [facility] ([facility] ) Systolic blood pressure 121 mm[Hg] 121 mm[Hg] M [facility] ([facility] ) Diastolic blood pressure 66 mm[Hg] 66 mm[Hg] [facility] ([facility] ) Body weight 134.25 [lb_av] 134.25 [lb_av] [facility] T ([facility] ) Body mass index (BMI) [Ratio] 22.7 kg/m2 22.7 k g/m2 [facility] ([facility] ) Body mass index (BMI) [Ratio] 21.6 kg/m2 21.6 k g/m2 [facility] ([facility], ) [place] body weight 125 [lb_av] 125 [lb_av] [facility] T ([facility], ) Body weight 59.875 kg 59.875 kg [facility] ([facility], ) Body weight 132.00 [lb_av] 132.00 [lb_av] [facility] T ([facility], ) Body surface area Derived from formula 1.67 m2 1.67 m2 [facility] Body height 65.50 [in_i] 65.50 [in_i] [facility] ([facility], ) 5'5.50" Systolic blood pressure 140 mm[Hg] 140 mm[Hg] M EDENT ([facility]) Diastolic blood pressure 90 mm[Hg] 90 mm[Hg] [facility] ([facility]) Heart rate 88 /min 88 /min [facility] ([facility]) Oxygen saturation in Arterial blood by Pulse oximetry 943 % 943 % [facility] ([facility]) Body mass index (BMI) [Ratio] 22.0 kg/m2 22.0 k g/m2 [facility] ([facility]) [place] body weight 125 [lb_av] 125 [lb_av] [facility] T ([facility]) Body weight 60.782 kg 60.782 kg [facility] ([facility]) Body surface area Derived from formula 1.68 m2 1.68 m2 [facility] ([facility]) Oxygen saturation in Arterial blood by Pulse oximetry 943 % 943 % [facility] ([facility]) Body height 65.50 [in_i] 65.50 [in_i] [facility] 5'5.50" Body weight 134.00 [lb_av] 134.00 [lb_av] [facility] T ([facility]) Body mass index (BMI) [Ratio] 22.0 kg/m2 22.0 k g/m2 [facility] ([facility]) [place] body weight 125 [lb_av] 125 [lb_av] [facility] T ([facility]) Body weight 60.782 kg 60.782 kg [facility] ([facility]) Body surface area Derived from formula 1.68 m2 1.68 m2 [facility] ([facility]) Body height 65.50 [in_i] 65.50 [in_i] [facility] ([facility]) 5'5.50" Body weight 134.00 [lb_av] 134.00 [lb_av] [facility] T ([facility]) Respiratory rate 18 /min 18 /min [facility] ( [facility]) Systolic blood pressure 130 mm[Hg] 130 mm[Hg] M [facility] ([facility]) Diastolic blood pressure 70 mm[Hg] 70 mm[Hg] [facility] ([facility]) Body mass index (BMI) [Ratio] 21.5 kg/m2 21.5 k g/m2 [facility] ([facility]) Heart rate 90 /min 90 /min [facility] ([facility]) Oxygen saturation in Arterial blood by Pulse oximetry 93 % 93 % [facility] ([facility]) on 3L oxygen Body weight 133.00 [lb_av] 133.00 [lb_av] [facility] T ([facility]) Body weight 60.329 kg 60.329 kg [facility] ([facility]) Body height 66 [in_i] 66 [in_i] [facility] ([facility]) 5'6" Body temperature 98.4 [degF] 98.4 [degF] [facility] Body surface area Derived from formula 1.68 m2 1.68 m2 [facility] ([facility]) Body surface area Derived from formula 1.67 m2 1.67 m2 [facility] ([facility]) Systolic blood pressure 110 mm[Hg] 110 mm[Hg] M [facility] ([facility]) Diastolic blood pressure 64 mm[Hg] 64 mm[Hg] [facility] ([facility]) Heart rate 88 /min 88 /min [facility] ([facility]) Body temperature 98.1 [degF] 98.1 [degF] [facility] ([facility]) Respiratory rate 18 /min 18 /min [facility] ( [facility]) Oxygen saturation in Arterial blood by Pulse oximetry 91 % 91 % [facility] ([facility]) Body weight 131.50 [lb_av] 131.50 [lb_av] [facility] T ([facility]) Body weight 59.648 kg 59.648 kg [facility] ([facility]) Body height 66 [in_i] 66 [in_i] [facility] ([facility]) 5'6" Body mass index (BMI) [Ratio] 21.2 kg/m2 21.2 k g/m2 [facility] ([facility]) Body surface area Derived from formula 1.68 m2 1.68 m2 [facility] ([facility]) Body weight 61.236 kg 61.236 kg [facility] ([facility]) Systolic blood pressure 138 mm[Hg] 138 mm[Hg] [facility] Diastolic blood pressure 80 mm[Hg] 80 mm[Hg] [facility] ([facility]) Heart rate 98 /min 98 /min [facility] ([facility]) Oxygen saturation in Arterial blood by Pulse oximetry 92 % 92 % [facility] ([facility]) Body temperature 97.5 [degF] 97.5 [degF] [facility] ([facility]) Body height 65.50 [in_i] 65.50 [in_i] [facility] ([facility]) 5'5.50" Body weight 135.00 [lb_av] 135.00 [lb_av] [facility] T ([facility]) Body mass index (BMI) [Ratio] 22.1 kg/m2 22.1 k g/m2 [facility] ([facility]) [place] body weight 125 [lb_av] 125 [lb_av] [facility] T ([facility]) Body surface area Derived from formula 1.67 m2 1.67 m2 [facility] ([facility]) Systolic blood pressure 120 mm[Hg] 120 mm[Hg] [facility] Diastolic blood pressure 82 mm[Hg] 82 mm[Hg] [facility] ([facility]) Heart rate 93 /min 93 /min [facility] ([facility]) Oxygen saturation in Arterial blood by Pulse oximetry 91 % 91 % [facility] ([facility]) Body temperature 98.0 [degF] 98.0 [degF] [facility] ([facility]) Body height 65.50 [in_i] 65.50 [in_i] [facility] ([facility]) 5'5.50" Body weight 133.00 [lb_av] 133.00 [lb_av] [facility] T ([facility]) Body mass index (BMI) [Ratio] 21.8 kg/m2 21.8 k g/m2 [facility] ([facility], ) [place] body weight 125 [lb_av] 125 [lb_av] [facility] T ([facility]) Body weight 60.329 kg 60.329 kg [facility] ([facility]) Oxygen saturation in Arterial blood by Pulse oximetry 91 % 91 % [facility] ([facility]) Body weight 132.25 [lb_av] 132.25 [lb_av] [facility] T ([facility]) Body weight 59.989 kg 59.989 kg [facility] ([facility]) Body height 66 [in_i] 66 [in_i] [facility] ([facility]) 5'6" Body mass index (BMI) [Ratio] 21.3 kg/m2 21.3 k g/m2 [facility] Body surface area Derived from formula 1.68 m2 1.68 m2 [facility] Systolic blood pressure 120 mm[Hg] 120 mm[Hg] M [facility] ([facility]) Diastolic blood pressure 68 mm[Hg] 68 mm[Hg] [facility] ([facility]) Heart rate 88 /min 88 /min [facility] ([facility]) Body temperature 98.8 [degF] 98.8 [degF] [facility] ([facility]) Respiratory rate 18 /min 18 /min [facility] ( [facility]) Body height 65.50 [in_i] 65.50 [in_i] [facility] ([facility], ) 5'5.50" Body weight 135.00 [lb_av] 135.00 [lb_av] [facility] T ([facility]) Body mass index (BMI) [Ratio] 22.1 kg/m2 22.1 k g/m2 [facility] ([facility]) [place] body weight 125 [lb_av] 125 [lb_av] [facility] T ([facility]) Body weight 61.236 kg 61.236 kg [facility] ([facility]) Body surface area Derived from formula 1.68 m2 1.68 m2 [facility] ([facility], ) Systolic blood pressure 122 mm[Hg] 122 mm[Hg] M [facility] ([facility]) Diastolic blood pressure 70 mm[Hg] 70 mm[Hg] [facility] ([facility]) Oxygen saturation in Arterial blood by Pulse oximetry 90 % 90 % [facility] ([facility]) Heart rate 88 /min 88 /min [facility] ([facility]) Body weight 133.25 [lb_av] 133.25 [lb_av] [facility] T ([facility]) Body weight 60.442 kg 60.442 kg [facility] ([facility]) Body height 66 [in_i] 66 [in_i] [facility] ([facility]) 5'6" Body mass index (BMI) [Ratio] 21.5 kg/m2 21.5 k g/m2 [facility] ([facility]) Body surface area Derived from formula 1.68 m2 1.68 m2 [facility] ([facility]) Body temperature 98.2 [degF] 98.2 [degF] [facility] ([facility]) Respiratory rate 18 /min 18 /min [facility] ( [facility]) Body mass index (BMI) [Ratio] 22.7 kg/m2 22.7 k g/m2 [facility] ([facility] ) Heart rate 85 /min 85 /min [facility] ([facility] ) Body temperature 96.4 [degF] 96.4 [degF] [facility] ([facility] ) Diastolic blood pressure 70 mm[Hg] 70 mm[Hg] [facility] ([facility] ) Body height 64.5 [in_i] 64.5 [in_i] [facility] ([facility] ) 5'4.50" Systolic blood pressure 122 mm[Hg] 122 mm[Hg] M [facility] ([facility] ) Body weight 134.25 [lb_av] 134.25 [lb_av] [facility] T ([facility] ) Oxygen saturation in Arterial blood by Pulse oximetry 98 % 98 % [facility] ([facility] ) Systolic blood pressure 132 mm[Hg] 132 mm[Hg] M [facility] ([facility]) Heart rate 92 /min 92 /min [facility] ([facility]) Diastolic blood pressure 82 mm[Hg] 82 mm[Hg] [facility] ([facility]) Body height 65.50 [in_i] 65.50 [in_i] [facility] ([facility]) 5'5.50" Body temperature 97.8 [degF] 97.8 [degF] [facility] ([facility]) Oxygen saturation in Arterial blood by Pulse oximetry 90 % 90 % [facility] ([facility]) Body weight 133.00 [lb_av] 133.00 [lb_av] [facility] Body mass index (BMI) [Ratio] 21.8 kg/m2 21.8 k g/m2 [facility] ([facility]) [place] body weight 125 [lb_av] 125 [lb_av] [facility] Body weight 60.329 kg 60.329 kg [facility] ([facility]) Body surface area Derived from formula 1.67 m2 1.67 m2 [facility] ([facility]) ID Date Data Source [id number] 09/18/2020 11:18:24 AM EDT [facility] Name Value Range Interpretation Code Description Data Source(s) WEIGHT RECORDED 132.00 pounds 132.00 pounds [facility] Height 66 Inches 066 Inches [facility] ID Date Data Source [id number] 09/18/2020 11:15:54 AM EDT [facility] Name Value Range Interpretation Code Description Data Source(s) WEIGHT RECORDED 132.00 pounds 132.00 pounds [facility] Height 66 Inches 066 Inches [facility]
[2021-02-06 18:27] LABS: BASO % 0.5 % (0.0-1.0); EOS % 0.7 % (0.0-3.0); HEMATOCRIT 40.7 % (36.0-47.0); HEMOGLOBIN 11.6 g/dl (12.0-15.5); LYMPH # 1.8 10^3/uL (1.5-5.0); LYMPH % 31.5 % (24.0-44.0); MEAN CORPUSCULAR HEMOGLOBIN 23.3 pg (27.0-33.0); MEAN CORPUSCULAR HGB CONC 28.5 g/dl (32.0-36.5); MEAN CORPUSCULAR VOLUME 81.9 fl (80.0-96.0); MONO # 0.6 10^3/uL (0.0-0.8); MONO % 9.8 % (2.0-8.0); NEUTROPHILS # 3.2 10^3/uL (1.5-8.5); NEUTROPHILS % 57.3 % (36.0-66.0); PLATELET COUNT, AUTOMATED 206 10^3/uL (150-450); RED BLOOD COUNT 4.97 10^6/uL (4.00-5.40); WHITE BLOOD COUNT 5.6 10^3/uL (4.0-10.0)
--- NOTE | 2021-02-06 19:10 | ECGEPIP ---
[facility] - ED Test Date: 2021-02-06 Pat Name: SONA MARTINEZ Department: Room: - Gender: Female Quality Assurance: lalitha : 1955 Requested By: Chalo Mcneal Order Number: [id number] Reading MD: Noemi Martin Measurements Intervals [place] Rate: 93 P: 56 [place]: 144 QRS: 127 QRSD: 74 T: -7 QT: 312 QTc: 387 Interpretive Statements Sinus rhythm with premature supraventricular complexes Left posterior fascicular block Septal infarct , age undetermined T wave abnormality, consider ischemia increased rate 01/04/21 Electronically Signed on 02-06-2021 19:10:20 EDT by Noemi Martin
[2021-02-06 19:23] LABS: ALBUMIN 2.6 GM/DL (3.2-5.2); ALT/SGPT 39 U/L (12-78); BILIRUBIN,DIRECT < 0.1 MG/DL (0.0-0.2); BILIRUBIN,TOTAL 0.3 MG/DL (0.2-1.0); BLOOD UREA NITROGEN 32 MG/DL (7-18); CARBON DIOXIDE LEVEL 33 MEQ/L (21-32); CHLORIDE LEVEL 100 MEQ/L (98-107); CK-MB VALUE MASS 1.7 NG/ML (<3.6); CPK CREATINE PHOSPHOKINASE 44 U/L (26-192); CREATININE FOR GFR 1.31 MG/DL (0.55-1.30); GLOMERULAR FILTRATION RATE 43.2 (>45); GLUCOSE, FASTING 115 MG/DL (70-100); MB/CK RELATIVE INDEX 3.86 (< OR =4); POTASSIUM SERUM 5.2 MEQ/L (3.5-5.1); SODIUM LEVEL 137 MEQ/L (136-145); TROPONIN I < 0.02 NG/ML (< 0.10)
[2021-02-06] MEDS ORDERED: FUROSEMIDE 40MG/4ML VIAL (J1940) IV ONE (19:40)
[2021-02-06] MEDS ORDERED: MOM 30ML SUSPENSION UDC PO PRN (20:10)
[2021-02-06] MEDS ORDERED: ACETAMINOPHEN TAB 650MG DOSE (2X325MG) PO PRN (20:10)
--- NOTE | 2021-02-06 20:18 | HPEPDOC ---
[facility] Medical History & Physical Date of Admission Feb 06, 2021 Date of Service: Feb 06, 2021 Attending Physician: CORRINE NUNES MD History and Physical CHIEF COMPLAINT: [65 y/o female c/o b/l le edema x5 days] HISTORY OF PRESENT ILLNESS: [This is a 65 y/o female with a pmh of scc of larynx and epiglottis, hfpef, hld, copd on 2L o2 nasal canula chronically, pulmonary nodules, gerd, dm2 who presents to our ED with a cc of b/l lower extremity edema that she first noticed about 5 days ago. Patient tells me that she has never had this issue before. Patient tells me that she is mildly sob but that this is her baseline. Patient does note that her sob has been a little worse on exertion as of late. Patient admits to chronic cough, at baseline. Patient tells me that she has been experiencing transient discomfort of her legs b/l that she describes as a "full" feeling. Patient also admits to some abdominal bloating. Patient, at the time of my exam, denies and fevers, chills, chest pain, wheezing, abd pain, n/v/d/c, dysuria, oliguria, syncope, paresthesias, recent falls.] PAST MEDICAL HISTORY: 1. [See HPI PAST SURGICAL HISTORY: 1. [B/l cataract removal]. 2. [Tonsillectomy]. 3. [Lung biopsy 4. Tubal ligation 5. Cardiac catheterization]. SOCIAL HISTORY: Tobacco use:[Recently quit] ETOH: [Denies] Illicit drug use: [Denies] FAMILY HISTORY: Reviewed - none pertinent ALLERGIES: Please see below. REVIEW OF SYSTEMS: CONSTITUTIONAL: [Denies fevers, chills]. HEENT: [Denies uri sx]. CARDIOVASCULAR: [Denies chest pain, palpitations]. RESPIRATORY: [See HPI]. GASTROINTESTINAL: [Denies abd pain, n/v/d/c]. GENITOURINARY: [Denies dysuria]. SKIN: [Denies rash]. MUSCULOSKELETAL: [Denies acute joint/back pain]. NEUROLOGICAL: [Denies syncope, paresthesias]. ENDOCRINE: [Hx of DM2]. HEMATOLOGIC/LYMPHATIC: [Denies hx of vte]. HOME MEDICATIONS: Please see below. PHYSICAL EXAMINATION: VITAL SIGNS: Please see below. GENERAL APPEARANCE: [This is a 65 y/o female who is alert and oriented to all q uestioning. She does not appear to be in any acute distress.]. HEENT: [No mass or lesion. EOMI. No scleral icterus. Nares patent. Oral mucosa moist]. CARDIOVASCULAR: [Tachy rate, regular rhythm. No murmurs, rubs, gallops]. LUNGS: [Decreased air flow throughout. Mild crackles heard throughout the lung schultz]. ABDOMEN: [Mildly distended. Soft, nontender]. MUSCULOSKELETAL: [No joint deformity]. EXTREMITIES: [Edema noted to b/l lower extremities to approx the knees. No overlying skin changes. Pulses intact]. NEUROLOGICAL: [Speech clear. A+Ox3. No focal deficits]. PSYCHIATRIC: [Mood and affect appear appropriate]. LABORATORY DATA: See below. IMAGING: [CXR: FINDINGS: There is atelectasis or pneumonia in the right lung base. There may be a superimposed pleural effusion. There is cardiomegaly and pulmonary venous hypertension without congestive heart failure. There is a right IJ chemotherapy port. IMPRESSION: Atelectasis or pneumonia in the right lung base. There may be of associated pleural effusion. No significant change.] MICROBIOLOGY: Please see below. ASSESSMENT: [This is a 65 y/o female with a pmh of scc of larynx and epiglottis, hfpef, hld, copd on 2L o2 nasal canula chronically, pulmonary nodules, gerd, dm2 who presents to our ED with a cc of b/l lower extremity edema that she first noticed about 5 days ago.]. . PLAN: 1. [Acute CHF - Patient obviously fluid overloaded on exam. BNP elevated to >29940 - CXR indicative of possible effusion vs. atelectasis vs. pna. Clinical presentation and exam indicative of hf. No sirs criteria. Will order procal to r/o pna. - Patient's last echo was in november 2019, will order echo for am to assess for possible further structural dz - Patient received 40mg lasix in the ED, will begin diuresis with 40mg lasix bid - Will keep pt on tele as this is he first hf exacerbation - 1.8L fluid restrict - Is and Os - Daily weights - Admit to med surg for tx 2. 02 Dependent COPD - Does not appear to be in acute exacerbation - Will continue supplemental 02 titrated to 88-92% - continue at home inhalers 3. Hyperkalemia - Pt potassium acutely elevated to 5.2 - this should resolve with lasix administration - pt on tele - monitor 4. Elevated creatinine - Patient creatinine acutely elevated to 1.3 from baseline of around 1.1, almost meeting criteria for acute kidney injury - Possibly congestive. Will monitor kidney function - ua, urine electrolytes 5. DM2 - sliding scale insulin - hypoglycemic protocol 6. GERD - continue omeprazole DVT prophylaxis - lovenox]. Vital Signs Vital Signs Date Time Temp Pulse Resp B/P (MAP) Pulse Ox O2 Delivery O2 Flow Rate FiO2 02/06/21 19:30 93 18 146/88 (107) 94 02/06/21 16:53 98.3 Nasal Cannula 3.0 Laboratory Data Labs 24H Laboratory Tests 2 02/06/21 18:13: Anion Gap 4L, Glomerular Filtration Rate 43.2L, Calcium Level 8.0L, Total Bilirubin 0.3, Direct Bilirubin < 0.1, Aspartate Amino Transf (AST/SGOT) 21, Alanine Aminotransferase (ALT/SGPT) 39, Alkaline Phosphatase 113, Total Creatine Kinase 44, Creatine Kinase MB 1.7, Creatine Kinase MB Relative Index 3.86, Troponin I < 0.02, IO-Jvh-M-Type Natriuretic Peptide 01907H, Total Protein 6.0L, Albumin 2.6L, Albumin/Globulin Ratio 0.8L 02/06/21 18:14: Immature Granulocyte % (Auto) 0.2, Neutrophils (%) (Auto) 57.3, Lymphocytes (%) (Auto) 31.5, Monocytes (%) (Auto) 9.8H, Eosinophils (%) (Auto) 0.7, Basophils (%) (Auto) 0.5, Neutrophils # (Auto) 3.2, Lymphocytes # (Auto) 1.8, Monocytes # (Auto) 0.6, Eosinophils # (Auto) 0.0, Basophils # (Auto) 0.0, Nucleated Red Blood Cells % (auto) 0.0 02/06/21 18:17: Lactic Acid Level 0.6 CBC/BMP Laboratory Tests 02/06/21 18:13 02/06/21 18:14 Microbiology Microbiology 02/06/21 Blood Culture, Received Pending 02/06/21 Respiratory Virus Panel (PCR) ([facility]) - Final, Complete 02/06/21 Blood Culture, Received Pending Home Medications Scheduled Esomeprazole Magnesium (Esomeprazole Magnesium) 40 Mg Cap, 40 MG PO QPM Metformin HCl (Metformin HCl) 1,000 Mg Tablet, 1,000 MG PO DAILY Mirtazapine (Remeron) 30 Mg Tablet, 30 MG PO BID Pravastatin Sodium (Pravastatin Sodium) 20 Mg Tablet, 20 MG PO QPM Tiotropium Br/Olodaterol HCl (Stiolto Respimat Inhal [place]) 1 Aer Aer, 2 PUFFS INH DAILY Zolpidem Tartrate (Ambien) 10 Mg Tablet, 10 MG PO QHS Scheduled PRN Acetaminophen (Acetaminophen 8 Hour) 650 Mg Tablet.er, 650 MG PO DAILY PRN for PAIN Budesonide (Budesonide) 0.5 Mg/2 Ml Ampul.neb, 0.5 MG PO BID PRN for SOB/WHEEZING Ipratropium/Albuterol Sulfate (Combivent Respimat 20-100 Mcg) 1 Aer Aer, 1 PUFF INH QID PRN for SHORTNESS OF BREATH Allergies Coded Allergies: prednisone (Verified Allergy, Severe, JOINT PAIN, DIFFICULTY BREATHING, 02/02/21) Penicillins (Verified Allergy, Intermediate, HIVES, VOMIT, 02/02/21) Sulfa (Sulfonamide Antibiotics) (Verified Allergy, Intermediate, HIVES, VOMIT, 02/02/21) A-FIB/CHADSVASC A-FIB History Current/History of A-Fib/PAF?: No Current PO Anticoag Therapy: No ARI FALCON Feb 06, 2021 20:18
[2021-02-06] MEDS ORDERED: HOME MED LIST COMPLETE! XX SCH (20:25)
--- OUTSIDE RECORDS SUMMARY | 2021-02-06 20:25 | CCD ---
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 Name Role Phone Leslie Kim ANP-BC Unavailable [...] Elsie ANP-BC Unavailable Unavailable Nevills, C Maty CLOSING COORDINATOR Unavailable Unavailable Nevills, C Maty CLOSING COORDINATOR Unavailable Unavailable Nevills, C Maty CLOSING COORDINATOR Unavailable Unavailable Nevills, C Maty CLOSING COORDINATOR Unavailable Unavailable Nevills, C Maty CLOSING COORDINATOR Unavailable Unavailable Nevills, C Maty CLOSING COORDINATOR Unavailable Unavailable Nevills, C Maty CLOSING COORDINATOR Unavailable Unavailable Nevills, C Maty CLOSING COORDINATOR Unavailable Unavailable Nevills, C Maty CLOSING COORDINATOR Unavailable Unavailable Nevills, C Maty CLOSING COORDINATOR Unavailable Unavailable Nevills, C Maty CLOSING COORDINATOR Unavailable Unavailable Nevills, C Maty CLOSING COORDINATOR Unavailable Unavailable Nevills, C Maty CLOSING COORDINATOR Unavailable Unavailable Nevills, C Maty CLOSING COORDINATOR Unavailable Unavailable Nevills, C Maty CLOSING COORDINATOR Unavailable Unavailable Nevills, C Maty CLOSING COORDINATOR Unavailable Unavailable Nevills, C Maty CLOSING COORDINATOR Unavailable Unavailable Nevills, C Maty CLOSING COORDINATOR Unavailable Unavailable Nevills, C Maty CLOSING COORDINATOR Unavailable Unavailable Nevills, C Maty CLOSING COORDINATOR Unavailable Unavailable Nevills, C Maty CLOSING COORDINATOR Unavailable Unavailable Nevills, C Maty CLOSING COORDINATOR Unavailable Unavailable Nevills, C Maty CLOSING COORDINATOR Unavailable Unavailable Nevills, C Maty CLOSING COORDINATOR Unavailable Unavailable Nevills, C Maty CLOSING COORDINATOR Unavailable Unavailable Nevills, C Maty CLOSING COORDINATOR Unavailable Unavailable Nevills, C Maty CLOSING COORDINATOR Unavailable Unavailable Nevills, C Maty CLOSING COORDINATOR Unavailable Unavailable Nevills, C Maty CLOSING COORDINATOR Unavailable Unavailable Nevills, C Maty CLOSING COORDINATOR Unavailable Unavailable Nevills, C Maty CLOSING COORDINATOR Unavailable Unavailable Nevills, C Maty CLOSING COORDINATOR Unavailable Unavailable Nevills, C Maty CLOSING COORDINATOR Unavailable Unavailable THOMAS, B CINDY CLOSING COORDINATOR Unavailable Unavailable THOMAS, B CINDY CLOSING COORDINATOR Unavailable Unavailable THOMAS, B CINDY CLOSING COORDINATOR Unavailable Unavailable THOMAS, B CINDY CLOSING COORDINATOR Unavailable Unavailable THOMAS, B CINDY CLOSING COORDINATOR Unavailable Unavailable THOMAS, B CINDY CLOSING COORDINATOR Unavailable Unavailable THOMAS, B CINDY CLOSING COORDINATOR Unavailable Unavailable THOMAS, B CINDY CLOSING COORDINATOR Unavailable Unavailable THOMAS, B CINDY CLOSING COORDINATOR Unavailable Unavailable THOMAS, B CINDY CLOSING COORDINATOR Unavailable Unavailable THOMAS, B CINDY CLOSING COORDINATOR Unavailable Unavailable THOMAS, B CINDY CLOSING COORDINATOR Unavailable Unavailable THOMAS, B CINDY CLOSING COORDINATOR Unavailable Unavailable THOMAS, B CINDY CLOSING COORDINATOR Unavailable Unavailable THOMAS, B CINDY CLOSING COORDINATOR Unavailable Unavailable THOMAS, B CINDY CLOSING COORDINATOR Unavailable Unavailable THOMAS, B CINDY CLOSING COORDINATOR Unavailable Unavailable THOMAS, B CINDY CLOSING COORDINATOR Unavailable Unavailable THOMAS, B CINDY CLOSING COORDINATOR Unavailable Unavailable THOMAS, B CINDY CLOSING COORDINATOR Unavailable Unavailable THOMAS, B CINDY CLOSING COORDINATOR Unavailable Unavailable THOMAS, B CINDY CLOSING COORDINATOR Unavailable Unavailable THOMAS, B CINDY CLOSING COORDINATOR Unavailable Unavailable THOMAS, B CINDY CLOSING COORDINATOR Unavailable Unavailable THOMAS, B CINDY CLOSING COORDINATOR Unavailable Unavailable THOMAS, B CINDY CLOSING COORDINATOR Unavailable Unavailable THOMAS, B CINDY CLOSING COORDINATOR Unavailable Unavailable THOMAS, B CINDY CLOSING COORDINATOR Unavailable Unavailable THOMAS, B CINDY CLOSING COORDINATOR Unavailable Unavailable THOMAS, B CINDY CLOSING COORDINATOR Unavailable Unavailable THOMAS, B CINDY CLOSING COORDINATOR Unavailable Unavailable THOMAS, B CINDY CLOSING COORDINATOR Unavailable Unavailable THOMAS, B CINDY CLOSING COORDINATOR Unavailable Unavailable THOMAS, B CINDY CLOSING COORDINATOR Unavailable Unavailable THOMAS, B CINDY CLOSING COORDINATOR Unavailable Unavailable THOMAS, B CINDY CLOSING COORDINATOR Unavailable Unavailable THOMAS, B CINDY CLOSING COORDINATOR Unavailable Unavailable THOMAS, B CINDY CLOSING COORDINATOR Unavailable Unavailable THOMAS, B CINDY CLOSING COORDINATOR Unavailable Unavailable THOMAS, B CINDY CLOSING COORDINATOR Unavailable Unavailable THOMAS, B CINDY CLOSING COORDINATOR Unavailable Unavailable THOMAS, B CINDY CLOSING COORDINATOR Unavailable Unavailable THOMAS, B CINDY CLOSING COORDINATOR Unavailable Unavailable THOMAS, B CINDY CLOSING COORDINATOR Unavailable Unavailable THOMAS, B CINDY CLOSING COORDINATOR Unavailable Unavailable THOMAS, B CINDY CLOSING COORDINATOR Unavailable Unavailable THOMAS, B CINDY CLOSING COORDINATOR Unavailable Unavailable THOMAS, B CINDY CLOSING COORDINATOR Unavailable Unavailable THOMAS, B CINDY CLOSING COORDINATOR Unavailable Unavailable THOMAS, B CINDY CLOSING COORDINATOR Unavailable Unavailable THOMAS, B CINDY CLOSING COORDINATOR Unavailable Unavailable THOMAS, B CINDY CLOSING COORDINATOR Unavailable Unavailable THOMAS, B CINDY CLOSING COORDINATOR Unavailable Unavailable THOMAS, B CINDY CLOSING COORDINATOR Unavailable Unavailable THOMAS, B CINDY CLOSING COORDINATOR Unavailable Unavailable THOMAS, B CINDY CLOSING COORDINATOR Unavailable Unavailable THOMAS, B CINDY CLOSING COORDINATOR Unavailable Unavailable THOMAS, B CINDY CLOSING COORDINATOR Unavailable Unavailable THOMAS, B CINDY CLOSING COORDINATOR Unavailable Unavailable THOMAS, B CINDY CLOSING COORDINATOR Unavailable Unavailable THOMAS, B CINDY CLOSING COORDINATOR Unavailable Unavailable THOMAS, B CINDY CLOSING COORDINATOR Unavailable Unavailable Leslie Kim ANP-BC Unavailable Unavailable [...] Unavailable Julio, Leslie Elsie ANP-BC Unavailable Unavailable Juloi, Leslie Elsie ANP-BC Unavailable Unavailable Julio, Leslie [...] Julio, Leslie Elsie ANP-BC Unavailable Unavailable Julio, Lelsie Elsie ANP-BC Unavailable Unavailable Julio, Leslie Elsie [...] A MATT DO Unavailable Unavailable SEARS, A MTAT DO Unavailable Unavailable SEARS, A MATT DO [...] MATT DO Unavailable Unavailable Nevills, C Maty CLOSING COORDINATOR Unavailable Unavailable Nevills, C Maty CLOSING COORDINATOR Unavailable Unavailable Nevills, C Maty CLOSING COORDINATOR Unavailable Unavailable Nevills, C Maty CLOSING COORDINATOR Unavailable Unavailable Nevills, C Maty CLOSING COORDINATOR Unavailable Unavailable Nevills, C Maty CLOSING COORDINATOR Unavailable Unavailable Nevills, C Maty CLOSING COORDINATOR Unavailable Unavailable Nevills, C Maty CLOSING COORDINATOR Unavailable Unavailable Nevills, C Maty CLOSING COORDINATOR Unavailable Unavailable Nevills, C Maty CLOSING COORDINATOR Unavailable Unavailable Nevills, C Maty CLOSING COORDINATOR Unavailable Unavailable Nevills, C Maty CLOSING COORDINATOR Unavailable Unavailable Nevills, C Maty CLOSING COORDINATOR Unavailable Unavailable Nevills, C Maty CLOSING COORDINATOR Unavailable Unavailable Nevills, C Maty CLOSING COORDINATOR Unavailable Unavailable Nevills, C Maty CLOSING COORDINATOR Unavailable Unavailable Nevills, C Maty CLOSING COORDINATOR Unavailable Unavailable Nevills, C Maty CLOSING COORDINATOR Unavailable Unavailable Nevills, C Maty CLOSING COORDINATOR Unavailable Unavailable Nevills, C Maty CLOSING COORDINATOR Unavailable Unavailable Nevills, C Maty CLOSING COORDINATOR Unavailable Unavailable Nevills, C Maty CLOSING COORDINATOR Unavailable Unavailable Nevills, C Maty CLOSING COORDINATOR Unavailable Unavailable Nevills, C Maty CLOSING COORDINATOR Unavailable Unavailable Nevills, C Maty CLOSING COORDINATOR Unavailable Unavailable Nevills, C Maty CLOSING COORDINATOR Unavailable Unavailable Nevills, C Maty CLOSING COORDINATOR Unavailable Unavailable Nevills, C Maty CLOSING COORDINATOR Unavailable Unavailable Nevills, C Maty CLOSING COORDINATOR Unavailable Unavailable Nevills, C Maty CLOSING COORDINATOR Unavailable Unavailable Nevills, C Maty CLOSING COORDINATOR Unavailable Unavailable Nevills, C Maty CLOSING COORDINATOR Unavailable Unavailable Nevills, C Maty CLOSING COORDINATOR Unavailable Unavailable Mindy DHALIWAL MD Unavailable Unavailable [...] GUAN Unavailable Unavailable Manuel JR, D Casandra GUNA Unavailable Unavailable Manuel JR, D Casandra GUAN [...] Unavailable Calvin Oconnell MD Unavailable Unavailable Calvin Ocnonell MD Unavailable Unavailable Calvin Oconnell MD Unavailable Unavailable Calvin Oconnell MD Unavailable Unavailable Calvin Oconnell MD Unavailable Unavailable Calvin Oconnell MD Unavailable Unavailable Calvin Oconnell MD Unavailable Unavailable Calvin Oconnell MD Unavailable Unavailable Calvin Oconnell MD Unavailable Unavailable Calvin Oconnell MD Unavailable Unavailable Calvin Ocnonell MD Unavailable Unavailable Calvin Oconnell MD Unavailable [...] Unavailable Unavailable Markell CHAMPION MD Unavailable Unavailable Makrell CHAMPION MD Unavailable Unavailable Markell CHAMPION MD [...] is protected by Article 27-F of the [facility] Public Health law. If you continue you may have access to information: Regarding HIV / AIDS; Provided by facilities licensed or operated by the [facility] Office of Mental Health; or Provided by the [facility] Office for People With Developmental Disabilities. If such information is present, then the following [facility] mandated warning applies: This information has been [...] law may result in a fine or fci sentence or both. A general authorization for the release of medical or other information is NOT sufficient authorization for further disc losure. Allergies and Adverse Reactions Type Description Substance Reaction Status Data Source(s ) Drug allergy PREDNISOLONE PREDNISOLONE SEVERE JOINT PAIN [facility] Propensity to adverse reactions SULFA (sulfonamide) SULFA (sulfonamid e) RASH [facility] Propensity to adverse reactions PCN (penicillin) PCN (penicillin) VOM ITING [facility] Family History Family Member Name Family Member Gender Family Member Status Date o f Status Description Data Source(s) Unknown Unknown Problem [facility] ([facility]) Unknown Male Problem [facility] ([facility]) no contact Unknown Male Problem [facility] ([facility] () Encounters Encounter Providers Location Date Indications Data Source(s ) Outpatient Attender: RADHA Champion/Jennifer/Hla/ Reindl 01/21/2021 02:15:00 PM EDT [facility] ([facility] Outpatient Attender: Maty Menon NPConsultant: SPECIFIED NOT 12/08/2020 03:21:00 PM EDT - 12/08/2020 03:21:00 PM EDT [facility] Outpatient Attender: Maty Menon NP Family Practice 12/08 03:20:00 PM EDT [facility] ([facility]) OFFICE OUTPATIENT VISIT 15 MINUTES Attender: CINDY GUZMAN NP Physical Therapy 11/14/2020 03:15:00 PM EDT [facility] ([facility]) Outpatient Attender: ANKIT Champion/Jennifer/Hal/Reind claudio 10/30/2020 02:15:00 PM EDT [facility] ([facility] Outpatient Attender: MATT Westbrook/Jennifer/Hal/Reindl 10/02/2020 01:00:00 PM EDT [facility] ([facility] Outpatient Attender: Maty Menon NPConsultant: SPECIFIED NOT 09/09/2020 01:00:00 PM EDT - 09/09/2020 01:00:00 PM EDT [facility] Outpatient Attender: Casandra Ballardsultant: SPECIFIE D NOT 08/21/2020 09:45:00 AM EDT - 08/21/2020 11:36:00 AM EDT [facility] Patient discharged. Outpatient Attender: Casandra Jackson JRConsultant: SPECIFIE D NOT 08/16/2020 08:50:00 AM EDT - 08/16/2020 09:50:00 AM EDT [facility] Patient discharged. Outpatient Attender: Casandra Jackson JRConsultant: SPECIFIE D NOT 07/28/2020 10:43:00 AM EDT - 07/28/2020 11:43:00 AM EDT [facility] Patient discharged. Outpatient Attender: Casandra Manuel JRConsultant: SPECIFIE D NOT 07/25/2020 11:48:24 AM EDT - 08/03/2020 01:26:00 PM EDT [facility] Patient discharged. Outpatient Attender: Casandra Jackson JRConsultant: SPECIFIE D NOT 07/17/2020 06:00:00 AM EDT - 07/17/2020 08:21:00 AM EDT [facility] Patient discharged. Outpatient Attender: Casandra Jackson Consultant: SPECIFIE D NOT 07/12/2020 09:18:00 AM EDT - 07/12/2020 10:18:00 AM EDT [facility] Patient discharged. Outpatient Attender: Elsie SWIFT- Family Practice 04/2020 11:00:00 AM EDT [facility] ([facility]) Outpatient Attender: Elsie LYLESonsultant: SPECIFIED NOT 07/10/2020 10:45:00 AM EDT - 07/10/2020 10:45:00 AM EDT [facility] Outpatient Attender: Casandra Jackson Eliosultant: SPECIFIE D NOT 07/09/2020 09:58:33 AM EDT - 07/09/2020 01:40:00 PM EDT [facility] Patient discharged. Outpatient Attender: MATT Westbrook/Jennifer/Hal/Reindl 06/02/2020 01:30:00 PM EST [facility] ([facility] Outpatient Attender: ANKIT Champion/Jennifer/Hal/Reind claudio 05/21/2020 12:45:00 PM EST [facility] ([facility] Outpatient Attender: MATT Zambrano/Hal/Reindl 05/19/2020 01:00:00 PM EST [facility] ([facility] Outpatient Attender: Elsie LYLESonsultant: SPECIFIED NOT 05/15/2020 12:57:00 PM EST - 05/15/2020 12:57:00 PM EST [facility] OFFICE OUTPATIENT VISIT 15 MINUTES Attender: CINDY THOMAS CLOSING COORDINATOR Physical Therapy 05/09/2020 10:15:00 AM EST [facility] ([facility]) Outpatient Attender: Elsie Kim ANP-BCConsultant: SPECIFIED NOT 02/13/2020 10:44:00 AM EST - 02/13/2020 10:44:00 AM EST [facility] OFFICE OUTPATIENT VISIT 15 MINUTES Attender: CINDY GUZMAN CLOSING COORDINATOR Physical Therapy 01/21/2020 01:00:00 PM EDT [facility] ([facility]) Outpatient Attender: MATT Westbrook/Jennifer/Hal/Reindl 01/17/2020 12:00:00 PM EDT [facility] ([facility] Outpatient Attender: Miguel A Champion/Jennifer/Hal/R eindl 12/09/2019 01:23:00 AM EDT [facility] ([facility] Immunizations Vaccine Date Status Description Data Source(s) COVID-19 VACCINE Moderna 06/25/2020 12:00:00 AM EDT completed [facility] Vaccine Series Complete: YESThis Data wa s Submitted to [facility] Via [employer]. COVID-19 VACCINE, MRNA-1273, LNP-S (MODERNA)/PF 06/25/2020 1 2:00:00 AM EDT completed [facility] COVID-19 VACCINE Moderna 05/28/2020 12:00:00 AM EST completed [facility] Vaccine Series Complete: NOThis Data was Submitted to [facility] Via [employer]. COVID-19 VACCINE, MRNA-1273, LNP-S (MODERNA)/PF 05/28/2020 1 [...] DAYS SOLD: 11/19/2020 [facility] Nystatin [id number] UNT/ML Oral Suspension Nystatin 11/12/2020 12:00:00 AM EDT completed [facility] ([facility]) 30 mg 11/08/2020 12:00:00 AM EDT [...] 10/02/2020 12: 00:00 AM EDT active [facility] ([facility], ) 0.5 mg/2 mL 10/02/2020 12:00:00 AM [...] 09/17/2020 12:00:00 AM EDT RESPIRATORY active [facility] ([facility], ) 500 mg 09/17/2020 12:00:00 AM EDT [...] 09/09/2020 12:00:00 AM EDT ORAL active [facility] ([facility]) 10 mg 08/29/2020 12:00:00 AM EDT tablet [...] TAPER DIRECTED FOR 1 MONTH SOLD: 07/06/2020 [facility] 0.3 % 07/04/2020 12:00:00 AM [...] Unspecified 06/25/2020 12:00:00 AM EDT completed [facility] ([facility], ) Medication administered onsite Covid-19 vaccine, Unspecified 05/28/2020 12:00:00 AM EST completed [facility] ([facility], ) Medication administered onsite 30 mg 05/23/2020 [...] 05/15/2020 12:00:00 AM EST ORAL completed [facility] ([facility]) Pravastatin Sodium 20 MG Oral Tablet Pravastatin Sodium 07/2020 12:00:00 AM EST ORAL active [facility] ([facility]) 20 mg 05/15/2020 12:00:00 AM EST tablet [...] 12:00:[address] ORAL completed [facility] ([facility]) 10 mg 04/08/2020 12:00:00 AM EST tablet [...] 01/23/2020 12:00:00 AM EDT ORAL completed [facility] ([facility], ) 150 mg 01/23/2020 12:00:00 AM [...] DAILY DOSE = ONE TABLET SOLD: 12/11/2019 [email or web address] Esomeprazole 40 MG Delayed Release Oral Capsule ESOMEPRAZOLE MAGNESIUM 08/18/2019 12:00:00 AM EDT capsule,delayed release(DR/EC) 30 TAKE ONE CAPSULE BY MOUTH EVERY DAY TAKE ONE CAPSULE BY MOUTH EVERY DAY SOLD: 06/25/2020 [email or web address] Esomeprazole 40 MG Delayed Release Oral Capsule ESOMEPRAZOLE MAGNESIUM 08/18/2019 12:00:00 AM EDT capsule,delayed release(DR/EC) 30 TAKE ONE CAPSULE BY MOUTH EVERY DAY TAKE ONE CAPSULE BY MOUTH EVERY DAY SOLD: 12/24/2019 [email or web address] Esomeprazole 40 MG Delayed Release Oral Capsule ESOMEPRAZOLE MAGNESIUM 08/18/2019 12:00:00 AM EDT capsule,delayed release(DR/EC) 30 TAKE ONE CAPSULE BY MOUTH EVERY DAY TAKE ONE CAPSULE BY MOUTH EVERY DAY SOLD: 03/24/2020 [email or web address] Esomeprazole 40 MG Delayed Release Oral Capsule ESOMEPRAZOLE MAGNESIUM 08/18/2019 12:00:00 AM EDT capsule,delayed release(DR/EC) 30 TAKE ONE CAPSULE BY MOUTH EVERY DAY TAKE ONE CAPSULE BY MOUTH EVERY DAY SOLD: 05/24/2020 [email or web address] Esomeprazole 40 MG Delayed Release Oral Capsule ESOMEPRAZOLE MAGNESIUM 08/18/2019 12:00:00 AM EDT capsule,delayed release(DR/EC) 30 TAKE ONE CAPSULE BY MOUTH EVERY DAY TAKE ONE CAPSULE BY MOUTH EVERY DAY SOLD: 02/19/2020 [email or web address] Esomeprazole 40 MG Delayed Release Oral Capsule ESOMEPRAZOLE MAGNESIUM 08/18/2019 12:00:00 AM EDT capsule,delayed release(DR/EC) 30 TAKE ONE CAPSULE BY MOUTH EVERY DAY TAKE ONE CAPSULE BY MOUTH EVERY DAY SOLD: 04/25/2020 [email or web address] Esomeprazole 40 MG Delayed Release Oral Capsule ESOMEPRAZOLE MAGNESIUM 08/18/2019 12:00:00 AM EDT capsule,delayed release(DR/EC) 30 TAKE ONE CAPSULE BY MOUTH EVERY DAY TAKE ONE CAPSULE BY MOUTH EVERY DAY SOLD: 01/21/2020 [facility] 40 mg 08/18/2019 12:00:00 AM EDT capsule,delayed release (DR/EC) 30 TAKE ONE CAPSULE BY MOUTH EVERY DAY TAKE ONE CAPSULE BY MOUTH EVERY DAY SOLD: 07/25/2020 [facility] 150 mg 08/14/2019 12:00:00 AM EDT [...] relationship to gonzales Policy Gonzales Plan Information [facility] Part B [id number] Self R [id number] [facility] Part B [id number] Self R [id number] [facility] Part B [id number] Self R [id number] [facility] Part B [id number] Self R [id number] [facility] FEDERAL EMPLOYEE PROGRAM [id number] SP [id number] [facility] [id number] SP [id number] [facility] [id number] SP [id number] [facility] [id number] SP [id number] [employer] Preferred (Hmo) Health Maintenance Organization (HMO) [id number] Self [id number] [facility] FEDERAL EMPLOYEE PROGRAM [id number] SP [id number] [facility] FEDERAL EMPLOYEE PROGRAM [id number] SP [id number] [facility] FEDERAL EMPLOYEE PROGRAM [id number] SP [id number] [facility] [id number] SP [id number] [facility] FEDERAL EMPLOYEE PROGRAM [id number] SP [id number] [employer] [facility] BS [id number] [facility] ([facility]) [id number] Self [id number] [facility] ([facility]) [id number] Self [id number] BS Fed Plan Commercial [id number]. [id number] Self [id number] BS Fed Plan Commercial [id number] Self [id number] BS Fed Plan Commercial [id number] Self [id number] [facility] [employer] [id number] Self [id number] BS Fed Plan Commercial [id number] Self [id number] [facility] [employer] [id number] Self [id number] [facility] [employer] [id number] Self [id number] [facility] [employer] [id number] Self [id number] [facility] FEDERAL -O/P [id number] 18 [id number] [employer] [facility] [employer] Commercial [id number] Self [id number] BS Fed Plan Commercial [id number] Self [id number] BS Fed Plan Commercial [id number] Self [id number] BS Fed Plan Commercial [id number] Self [id number] MEDICARE COMPLETE [id number] SP [id number] MEDICARE COMPLETE [id number] SP [id number] MEDICARE [id number] SP [id number] [facility] [place]IC[place] COMPLE[place] [id number] 18 [id number] UN MEDICARE COMPLETE - O/P [id number] 18 [id number] MEDICARE COMPLETE-[facility] O [id number] S [id number] [place] [id number] 18 [id number] [facility] MEDICARE PART A [facility] [id number] 18 [id number] [place] [id number] 18 [id number] [facility] [id number] SP [id number] [facility] [id number] SP [id number] MEDICARE [id number] SP [id number] [facility] [id number] SP [id number] [facility] [id number] SP [id number] BS [place] [facility] FEDERAL B [id number] S [id number] Problems, Conditions, and Diagnoses Code Display Name Description Problem Type Effective Dates Data Source(s) X10746 Nicotine dependence, cigarettes, uncompl icated Nicotine dependence, cigarettes, uncomplicated Diagnosis 08/21/2020 09:45:00 AM [facility] H2511 Age-related nuclear cataract, right eye Age-related nuclear cataract, right eye Diagnosis 08/21/2020 09:45:00 AM [facility] 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 Diagnosis 08/21/2020 09:45:00 AM T [facility] Q21593 Encounter for preprocedural laboratory e xamination Encounter for preprocedural laboratory examination Diagnosis 08/16/2020 08:50:00 AM [facility] Z1152 ENCOUNTER FOR SCREENING FOR COVID-19 ENCOUNTER F OR SCREENING FOR COVID-19 Diagnosis 08/16/2020 08:50:00 AM [facility] R99 Ill-defined and unknown cause of mortali ty Ill-defined and unknown cause of mortality Diagnosis 08/03/2020 01:26:00 PM [facility] A87809 Encounter for other preprocedural examin ation Encounter for other preprocedural examination Diagnosis 07/28/2020 10:43:00 AM [facility] H2512 Age-related nuclear cataract, left eye A ge-related nuclear cataract, left eye Diagnosis 07/17/2020 06:00:00 AM [facility] 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 [facility] 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 therapy Diagnosis 05/15/2020 12:57:00 PM [facility] E7800 Pure hypercholesterolemia, unspecified P ure hypercholesterolemia, unspecified Diagnosis 05/15/2020 12:57:00 PM [facility] 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 B enign neoplasm of right adrenal gland Diagnosis 05/15/2020 12:57:00 PM [facility] E069 Thyroiditis, unspecified Thyroiditis, unspecified Diag nosis 05/15/2020 12:57:00 PM [facility] I10 Essential (primary) hypertension Essential (primary) h ypertension Diagnosis 05/15/2020 12:57:00 PM [facility] E1165 Type 2 diabetes mellitus with hyperglyce cely Type 2 diabetes mellitus with hyperglycemia Diagnosis 05/15/2020 12:57:00 PM [facility] F331 Major depressive disorder, recurrent, mo derate Major depressive disorder, recurrent, moderate Diagnosis 05/15/2020 12:57:00 PM [facility] G4700 Insomnia, unspecified Insomnia, unspecified Diagnosis 05/15/2020 12:57:00 PM [facility] J209 Acute bronchitis, unspecified Acute bronchitis, unspec ified Diagnosis 05/15/2020 12:57:00 PM [facility] F41.9 Anxiety state Anxiety state Problem 02/13/2020 12:00:00 AM EST [facility] R91.1 Solitary nodule of lung Solitary nodule of lung Proble m 02/13/2020 12:00:00 AM EST [facility]) D48.5 Neoplasm of uncertain behavior of skin N eoplasm of uncertain behavior of skin Problem 02/13/2020 12:00:00 AM EST [facility] ([facility]) 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) E05.80 Thyrotoxicosis Thyrotoxicosis Problem 02/13/2020 12:00: 00 AM EST [facility]) E06.9 Thyroiditis Thyroiditis Problem 02/13/2020 12:00:00 AM EST [facility]) I10 Essential hypertension Essential hypertension Problem 02/13/2020 12:00:00 AM EST [facility]) E11.65 Type II diabetes mellitus uncontrolled T ype II diabetes mellitus uncontrolled Problem 02/13/2020 12:00:00 AM EST [facility] ([facility]) Surgeries/Procedures Procedure Description Date Indications Data Source(s) Spirometry 01/21/2021 12:00:00 AM EDT M [facility] ([facility], ) OFFICE OUTPATIENT VISIT 25 MINUTES 01/21/2021 12:00:00 AM EDT [facility] ([facility], ) OFFICE OUTPATIENT VISIT 25 MINUTES 12/08/2020 12:00:00 AM EDT [facility]) OFFICE OUTPATIENT VISIT 15 MINUTES 11/14/2020 12:00:00 AM EDT [facility] ([facility]) LARYNGOSCOPY FLEXIBLE FIBEROPTIC DIAGNOSTIC 10/30/2020 12:00:00 AM EDT [facility] ([facility], ) OFFICE OUTPATIENT VISIT 15 MINUTES 10/30/2020 12:00:00 AM EDT [facility] ([facility], ) OFFICE OUTPATIENT VISIT 25 MINUTES 10/02/2020 12:00:00 AM EDT [facility] ([facility], ) OFFICE OUTPATIENT VISIT 25 MINUTES 09/09/2020 12:00:00 AM EDT [facility]) OFFICE OUTPATIENT VISIT 25 MINUTES 07/10/2020 12:00:00 AM EDT [facility]) OFFICE OUTPATIENT VISIT 25 MINUTES 06/02/2020 12:00:00 AM EST [facility] ([facility]) OFFICE OUTPATIENT VISIT 10 MINUTES 05/21/2020 12:00:00 AM EST [facility] ([facility]) OFFICE OUTPATIENT VISIT 15 MINUTES 05/19/2020 12:00:00 AM EST [facility] ([facility]) OFFICE OUTPATIENT VISIT 25 MINUTES 05/15/2020 12:00:00 AM EST [facility]) LARYNGOSCOPY FLEXIBLE FIBEROPTIC DIAGNOSTIC 02/19/2020 12:00:00 AM EST [facility] ([facility]) Brief Emotional/Behav Assessment W/ Scoring Doc Per Standard Inst 02/13/2020 12:00:00 AM EST [facility] ([facility]) Admin Patient Focused Health Risk Assessment Instrument 02/13/2020 12:00:00 AM EST [facility] Results ID Date Data Source [id number] 01/04/2021 05:55:00 PM EDT [facility] ([facility]) Name Value Range Interpretation Code Description Data Vilma rce(s) Supporting Document(s) Hemoglobin 11.0 g/dL 12.0-15.5 Below low normal [facility] White Blood Count 4.7 10 4.0-10.0 Normal (applies to non-numeri c results) [facility] ([facility]) Red Blood Count 4.34 10 4.00-5.40 Normal (applies to non-numeric results) [facility]) Hematocrit 36.7 % 36.0-47.0 Normal (applies to non-numeric resul ts) [facility]) Mean Corpuscular Hemoglobin 25.3 pg 27.0-33.0 Below low normal [facility] ([facility]) Mean Corpuscular Volume 84.6 fl 80.0-96.0 Normal ( applies to non-numeric results) [facility]) Mean Corpuscular HGB Conc 30.0 g/dL 32.0-36.5 Below low normal [facility]) Red Cell Distribution Width 14.6 % 11.5-14.5 Above high normal [facility] ([facility]) Platelet Count, Automated 238 10 150-450 Normal (applies to non-numeric results) [facility]) Neutrophils % 53.2 % 36.0-66.0 Normal (applies to non-numeric re sults) [facility]) Lymph % 36.1 % 24.0-44.0 Normal (applies to non-numeric resul ts) [facility]) Eos % 1.3 % 0.0-3.0 Normal (applies to non-numeric resul ts) [facility]) [place] % 8.6 % 2.0-8.0 Above high normal [facility] ([facility]) Nucleated Red Blood Cell % 0.0 % 0-0 Normal (applies to n on-numeric results) [facility]) Immature Granulocyte % 0.2 % 0-3.0 Normal (applies to non-n umeric results) [facility]) Baso % 0.6 % 0.0-1.0 Normal (applies to non-numeric resul ts) [facility]) Lymph # 1.7 10 1.5-5.0 Normal (applies to non-numeric resul ts) [facility]) Neutrophils # 2.5 10 1.5-8.5 Normal (applies to non-numeric re sults) [facility]) [place] # 0.4 10 0.0-0.8 Normal (applies to non-numeric resul ts) [facility]) Baso # 0.0 10 0.0-0.2 Normal (applies to non-numeric resul ts) [facility]) Eos # 0.1 10 0.0-0.5 Normal (applies to non-numeric resul ts) [facility]) ID Date Data Source [id number] 01/04/2021 05:55:00 PM EDT [facility] ([facility]) Name Value Range Interpretation Code Description Data Vilma rce(s) Supporting Document(s) Glucose, Fasting 100 mg/dL 70-100 Normal (applies to non-numeric results) [facility]) Creatinine For GFR 1.14 mg/dL 0.55-1.30 Normal (applies to non -numeric results) [facility]) Blood Urea Nitrogen 29 mg/dL 7-18 Above high normal [facility] ([facility]) Sodium Level 135 meq/L 136-145 Below low normal [facility]) Glomerular Filtration Rate 50.8 Normal (applies to n on-numeric results) [facility]) <content>Units are mL/min/1.73 m2</content>
<content></content>
<content>Chronic Kidney Disease Staging per NKF:</content>
<content></content>
<content>Stage I & II GFR >=60 Normal to Mildly Decreased</content>
<content>Stage III GFR 30- 59 Moderately Decreased</content>
<content>Stage IV GFR 15-29 Severely Decreased</content>
<content>Stage V GFR <15 Very Little GFR Left</content>
<content>ESRD GFR <15 on FOUNDRY FINISHER</content>
<content></content> Chloride Level 98 meq/L 98-107 Normal (applies to non-numeric r esults) [facility]) Carbon Dioxide Level 36 meq/L 21-32 Above high normal [facility] ([facility]) Potassium Serum 4.5 meq/L 3.5-5.1 Normal (applies to non-numeric results) [facility]) Calcium Level 8.0 mg/dL 8.8-10.2 Below low normal [facility] ([facility]) Anion Gap 1 meq/L 8-16 Below low normal [facility] ( [facility]) ID Date Data Source [id number] 01/04/2021 05:55:00 PM EDT [facility] ([facility]) Name Value Range Interpretation Code Description Data Vilma rce(s) Supporting Document(s) Ast/Sgot 20 U/L 7-37 Normal (applies to non-numeric resul ts) [facility]) Alt/SGPT 37 U/L 12-78 Normal (applies to non-numeric resul ts) [facility] Alkaline Phosphatase 139 U/L 45-117 Above high normal [facility]) Bilirubin,Direct 0.1 mg/dL 0.0-0.2 Normal (applies to non-numeric results) [facility]) Bilirubin,Total 0.4 mg/dL 0.2-1.0 Normal (applies to non-numeric results) [facility] Albumin 2.8 GM/DL 3.2-5.2 Below low normal [facility] Total Protein 6.3 GM/DL 6.4-8.2 Below low normal [facility] ([facility]) Albumin/Globulin Ratio 0.8 1.2-2.2 Below low normal [facility]) ID Date Data Source [id number] 01/04/2021 05:55:00 PM EDT [facility] ([facility]) Name Value Range Interpretation Code Description Data Vilma rce(s) Supporting Document(s) CK-MB Value Mass 2.1 ng/mL Normal (applies to non-numeric results) [facility]) CPK Creatine Phosphokinase 26 U/L 26-192 Maria De Jesus l (applies to non-numeric results) [facility]) Troponin I Laboratory test result Normal (applies to non-n umeric results) [facility]) <content>Troponin I Reference Interval f or Siemens [place] LOCI:</content>
<content></content>
<content>99th Percentile= 0.00-0.045 ng/ml</content>
<content></content>
<content>Risk Stratification:</content>
<content><= 0.10 ng/ml Decreased Risk for Adverse Clinical</content>
<content>Events.</content>
<content>0.10-1.50 ng/ml Increased Risk for Adverse Clinical</content>
<content>Events. Evaluation of additional</content>
<content>criterion and/or repeat testing in 2-6</content>
<content>hours is suggested to rule out myocardial</content>
<content>damage.</content>
<content>>= 1.50 ng/ml Indicative of Myocardial Injury.</content>
<content></content> MB/CK Relative Index 8.08 Above high normal [facility] ([facility]) <content>DIAGNOSIS CRITERIA</content>
<content>MMB ng/ml Relative Index (RI)</content>
<content>NON-AMI < or = 5 N/A</content>
<content>MCDONOUGH ZONE > 5 < or = 4</content>
<content>AMI > 5 > 4</content>
<content></content> ID Date Data Source [id number] 11/05/2020 12:55:00 PM EDT [facility] Name Value Range Interpretation Code Description Data Vilma rce(s) Supporting Document(s) Estimated Average Glucose 126 mg/dL 60-110 Above high normal [facility] ([facility]) Hemoglobin A1c 6.0 % Normal (applies to non-numeric r esults) [facility] <content>REFERENCE RANGES:</content><br/ ><content></content>
<content><=5.6% NORMAL</content>
<content>5.7-6.4% SUGGESTS IMPAIRED GLUCOSE METABOLISM/PREDIABETIC</content>
<content>>= 6.5% ABNORMAL</content>
<content></content> ID Date Data Source [id number] 11/05/2020 12:55:00 PM EDT [facility] ([facility]) Name Value Range Interpretation Code Description Data Vilma rce(s) Supporting Document(s) Glucose, Fasting 105 mg/dL 70-100 Above high normal [facility] ([facility]) Glomerular Filtration Rate Laboratory test result Normal (applies to non- numeric results) [facility]) <content>Units are mL/min/1.73 m2</content>
<content></content>
<content>Chronic Kidney Disease Staging per NKF:</content>
<content></content>
<content>Stage I & II GFR >=60 Normal to Mildly Decreased</content>
<content>Stage III GFR 30- 59 Moderately Decreased</content>
<content>Stage IV GFR 15-29 Severely Decreased</content>
<content>Stage V GFR <15 Very Little GFR Left</content>
<content>ESRD GFR <15 on FOUNDRY FINISHER</content>
<content></content> Creatinine For GFR 0.93 mg/dL 0.55-1.30 Normal (applies to non -numeric results) [facility]) Blood Urea Nitrogen 22 mg/dL 7-18 Above high normal [facility]) Sodium Level 140 meq/L 136-145 Normal (applies to non-numeric res ults) [facility]) Potassium Serum 4.8 meq/L 3.5-5.1 Normal (applies to non-numeric results) [facility]) Carbon Dioxide Level 36 meq/L 21-32 Above high normal [facility]) Anion Gap 4 meq/L 8-16 Below low normal [facility] ( [facility]) Chloride Level 100 meq/L 98-107 Normal (applies to non-numeric r esults) [facility]) Alt/SGPT 15 U/L 12-78 Normal (applies to non-numeric resul ts) [facility]) Calcium Level 8.7 mg/dL 8.8-10.2 Below low normal [facility] ([facility]) Ast/Sgot 5 U/L 7-37 Below low normal [facility] ([facility]) Bilirubin,Total 0.3 mg/dL 0.2-1.0 Normal (applies to non-numeric results) [facility]) Alkaline Phosphatase 110 U/L 45-117 Normal (applies to non-num giselle results) [facility]) Total Protein 6.6 GM/DL 6.4-8.2 Normal (applies to non-numeric re sults) [facility]) Albumin 3.5 GM/DL 3.2-5.2 Normal (applies to non-numeric resul ts) [facility]) Albumin/Globulin Ratio 1.1 1.2-2.2 Below low normal [facility]) ID Date Data Source [id number] 11/05/2020 12:55:00 PM EDT [facility] ([facility]) Name Value Range Interpretation Code Description Data Vilma rce(s) Supporting Document(s) Triglycerides Level 73 mg/dL Normal (applies to non-nume christopher results) [facility]) Cholesterol Level 212 mg/dL Above high normal [facility]) HDL Cholesterol 52 mg/dL Normal (applies to non-numeric results) [facility]) LDL Cholesterol 145 mg/dL Above high normal [facility] ([facility]) Non-HDL-C 160 mg/dL Normal (applies to non-numeric resul ts) [facility]) Cholesterol Risk Ratio 4.076 Normal (applies to non-n umeric results) [facility]) ID Date Data Source [id number] 11/05/2020 12:55:00 PM EDT [facility] ([facility]) Name Value Range Interpretation Code Description Data Vilma rce(s) Supporting Document(s) Thyrotropin [Units/volume] in Serum or Plasma 0.927 uIU/ML 0. 358-3.740 Normal (applies to non-numeric results) [facility] ([facility]) ID Date Data Source [id number] 11/05/2020 12:55:00 PM EDT [facility] ([facility]) Name Value Range Interpretation Code Description Data Vilma rce(s) Supporting Document(s) Thyroid Stimulating Hormone 1.010 uIU/ML 0.358-3.740 Norm al (applies to non- numeric results) [facility]) Free T4 1.22 ng/dL 0.76-1.46 Normal (applies to non-numeric resul ts) [facility]) ID Date Data Source [id number] 11/05/2020 12:55:00 PM EDT [facility] ([facility]) Name Value Range Interpretation Code Description Data Vilma rce(s) Supporting Document(s) Red Blood Count 5.32 10 4.00-5.40 Normal (applies to non-numeric results) [facility]) White Blood Count 5.4 10 4.0-10.0 Normal (applies to non-numeri c results) [facility]) Hemoglobin 13.5 g/dL 12.0-15.5 Normal (applies to non-numeric resul ts) [facility]) Hematocrit 46.0 % 36.0-47.0 Normal (applies to non-numeric resul ts) [facility]) Mean Corpuscular Volume 86.5 fl 80.0-96.0 Normal ( applies to non-numeric results) [facility] Mean Corpuscular Hemoglobin 25.4 pg 27.0-33.0 Below low normal [facility]) Mean Corpuscular HGB Conc 29.3 g/dL 32.0-36.5 Below low normal [facility] Neutrophils % 56.0 % 36.0-66.0 Normal (applies to non-numeric re sults) [facility]) Red Cell Distribution Width 15.4 % 11.5-14.5 Above high normal [facility] ([facility]) Platelet Count, Automated 186 10 150-450 Normal (applies to non-numeric results) [facility]) Lymph % 34.4 % 24.0-44.0 Normal (applies to non-numeric resul ts) [facility]) [place] % 7.3 % 2.0-8.0 Normal (applies to non-numeric resul ts) [facility]) Eos % 1.7 % 0.0-3.0 Normal (applies to non-numeric resul ts) [facility]) Baso % 0.6 % 0.0-1.0 Normal (applies to non-numeric resul ts) [facility]) Immature Granulocyte % 0.0 % 0-3.0 Normal (applies to non-n umeric results) [facility]) Nucleated Red Blood Cell % 0.0 % 0-0 Normal (applies to n on-numeric results) [facility]) Neutrophils # 3.0 10 1.5-8.5 Normal (applies to non-numeric re sults) [facility]) Lymph # 1.8 10 1.5-5.0 Normal (applies to non-numeric resul ts) [facility]) Eos # 0.1 10 0.0-0.5 Normal (applies to non-numeric resul ts) [facility]) [place] # 0.4 10 0.0-0.8 Normal (applies to non-numeric resul ts) [facility]) Baso # 0.0 10 0.0-0.2 Normal (applies to non-numeric resul ts) [facility]) ID Date Data Source [id number] 11/05/2020 12:55:00 PM EDT [facility] ([facility]) Name Value Range Interpretation Code Description Data Vilma rce(s) Supporting Document(s) Thyroid Stimulating Hormone 1.010 uIU/ML 0.358-3.740 [facility] ([facility]) Free T4 1.22 ng/dL 0.76-1.46 [facility] ([facility]) ID Date Data Source [id number] 09/21/2020 03:17:00 AM EDT [facility] Name Value Range Interpretation Code Description Data Vilma rce(s) Supporting Document(s) SARS-CoV-2 (COVID 19) NEGATIVE - SARS-CoV-2 (COVID19) [facility] This lab was ordered by [facility] a nd reported by [facility]. ID Date Data Source [id number] 08/25/2020 09:13:00 [place] [address] OPERATIVE SUMMARYNAME: JUAN Pablo DATE OF : 1955TTENDING PHYS: Casandra Jackson Jr., MD [facility] [id number] DATE: 08/21/20 MR#: [id number] PROCEDURE: 08/21/2020REOPERATIVE DIAGNOSIS: Visually significant cataract, [...] unit was then introduced, and using a etlktv-vhq-iqvfhhf technique, the nucleus and epi- nucleus were [...] Thelens centered well.COMPLICATIONS: None.BLOOD LOSS: Negligible. [address] [place] [address] OPERATIVE SUMMARYNAME: JUAN Pablo DATE OF : 1955TTENDING PHYS: Casandra Jackson Jr., MD DATE: 08/21/20 MR#: [id number]: Casandra Jackson Jr., MD 08/25/20 08:49DT: SSR 08/25/20 09:12DS: Casandra Jackson Jr., MD 09/18/20 11:15 2 Name Value Range Interpretation Code Description Data Vilma rce(s) Supporting Document(s) ID Date Data Source [id number] 07/17/2020 12:16:00 [place] [address] OPERATIVE SUMMARYNAME: JUAN Pablo DATE OF : 1955ENDING PHYS: Casandra Jackson Jr., MD DATE: 07/17/20 MR#: [id number] PROCEDURE: 07/17/2020REOPERATIVE DIAGNOSIS: Visually significant cataract, [...] unit was then introduced, and using a ypywzq-hml-uclowjf technique, the nucleus and epi- nucleus were [...] Thelens centered well.COMPLICATIONS: None.BLOOD LOSS: Negligible. [address] [place] [address] OPERATIVE SUMMARYNAME: JUAN Pablo DATE OF : 4ATTENDING PHYS: Casandra Jackson Jr., MD DATE: 07/17/20 MR#: [id number]: Casandra Jackson Jr., MD 07/17/20 11:42DT: MIR 07/17/20 12:16DS: Casandra Jackson Jr., MD 09/18/20 11:15 2 Name Value Range Interpretation Code Description Data Vilma rce(s) Supporting Document(s) ID Date Data Source [id number] 08/16/2020 08:40:00 AM EDT [facility] Name Value Range Interpretation Code Description Data Vilma rce(s) Supporting Document(s) SARS coronavirus 2 RNA Not Detected [facility] This lab was ordered by [facility] antonio and reported by [employer]. ID Date Data Source [id number] 08/17/2020 01:27:00 PM EDT [facility] Name Value Range Interpretation Code Description Data Vilma rce(s) Supporting Document(s) SARS-CoV-2, GUSTAVO Not Detected Not Detected [facility] This nucleic acid amplification test was [...] assay. SARS-CoV-2, GUSTAVO [address] [facility] ID Date Data Source [id number] 07/28/2020 09:00:00 AM EDT [facility] Name Value Range Interpretation Code Description Data Vilma rce(s) Supporting Document(s) SARS coronavirus 2 RNA Not Detected [facility] This lab was ordered by [facility] Rashid alvarez and reported by [employer]. ID Date Data Source [id number] 07/29/2020 09:28:00 PM EDT [facility] Name Value Range Interpretation Code Description Data Vilma rce(s) Supporting Document(s) SARS-CoV-2, GUSTAVO Not Detected Not Detected [facility] This nucleic acid amplification test was developed and its performancecharacteristics determined by [employer]. Nucleic acidamplification tests include RT-PCR and TMA. [...] assay. SARS-CoV-2, GUSTAVO [address] [facility] ID Date Data Source [id number] 07/12/2020 08:18:00 AM EDT [facility] Name Value Range Interpretation Code Description Data Vilma rce(s) Supporting Document(s) SARS coronavirus 2 RNA Not Detected [facility] and reported by [employer]. ID Date Data Source [id number] 07/14/2020 06:45:00 AM EDT [facility] Name Value Range Interpretation Code Description Data Vilma rce(s) Supporting Document(s) SARS-CoV-2, GUSTAVO Not Detected Not Detected [facility] This nucleic acid amplification test was developed and its performancecharacteristics determined by [employer]. Nucleic acidamplification tests include RT-PCR and TMA. [...] assay. SARS-CoV-2, GUSTAVO [address] [facility] ID Date Data Source [id number] 07/03/2020 03:31:00 PM EDT [facility] ([facility]) Name Value Range Interpretation Code Description Data Vilma rce(s) Supporting Document(s) Blood Urea Nitrogen 21 mg/dL 7-18 Above high normal [facility]) Glucose, Fasting 137 mg/dL 70-100 Above high normal [facility] ([facility]) Creatinine For GFR 1.07 mg/dL 0.55-1.30 Normal (applies to non -numeric results) [facility]) Glomerular Filtration Rate 54.8 Normal (applies to n on-numeric results) [facility]) <content>Units are mL/min/1.73 m2</content>
<content></content>
<content>Chronic Kidney Disease Staging per NKF:</content>
<content></content>
<content>Stage I & II GFR >=60 Normal to Mildly Decreased</content>
<content>Stage III GFR 30- 59 Moderately Decreased</content>
<content>Stage IV GFR 15-29 Severely Decreased</content>
<content>Stage V GFR <15 Very Little GFR Left</content>
<content>ESRD GFR <15 on FOUNDRY FINISHER</content>
<content></content> Sodium Level 133 meq/L 136-145 Below low normal [facility] Chloride Level 98 meq/L 98-107 Normal (applies to non-numeric r esults) [facility]) Potassium Serum 4.1 meq/L 3.5-5.1 Normal (applies to non-numeric results) [facility]) Calcium Level 8.4 mg/dL 8.8-10.2 Below low normal [facility] ([facility]) Anion Gap 2 meq/L 8-16 Below low normal [facility] ( [facility]) Carbon Dioxide Level 33 meq/L 21-32 Above high normal [facility]) Ast/Sgot 5 U/L 7-37 Below low normal [facility] ([facility]) Alt/SGPT 8 U/L 12-78 Below low normal [facility] ([facility]) Alkaline Phosphatase 114 U/L 45-117 Normal (applies to non-num giselle results) [facility]) Bilirubin,Total 0.2 mg/dL 0.2-1.0 Normal (applies to non-numeric results) [facility] Total Protein 6.7 GM/DL 6.4-8.2 Normal (applies to non-numeric re sults) [facility]) Albumin 3.3 GM/DL 3.2-5.2 Normal (applies to non-numeric resul ts) [facility]) Albumin/Globulin Ratio 1.0 1.2-2.2 Below low normal [facility] ID Date Data Source [id number] 07/03/2020 03:31:00 PM EDT [facility] ([facility]) Name Value Range Interpretation Code Description Data Vilma rce(s) Supporting Document(s) Red Blood Count 4.92 10 4.00-5.40 Normal (applies to non-numeric results) [facility] White Blood Count 5.9 10 4.0-10.0 Normal (applies to non-numeri c results) [facility] Hemoglobin 12.6 g/dL 12.0-15.5 Normal (applies to non-numeric resul ts) [facility]) Hematocrit 40.6 % 36.0-47.0 Normal (applies to non-numeric resul ts) [facility]) Mean Corpuscular Volume 82.5 fl 80.0-96.0 Normal ( applies to non-numeric results) [facility]) Mean Corpuscular HGB Conc 31.0 g/dL 32.0-36.5 Below low normal [facility]) Mean Corpuscular Hemoglobin 25.6 pg 27.0-33.0 Below low normal [facility]) Platelet Count, Automated 208 10 150-450 Normal (applies to non-numeric results) [facility]) Red Cell Distribution Width 14.6 % 11.5-14.5 Above high normal [facility] ([facility]) Neutrophils % 55.0 % 36.0-66.0 Normal (applies to non-numeric re sults) [facility]) Lymph % 37.0 % 24.0-44.0 Normal (applies to non-numeric resul ts) [facility]) [place] % 6.3 % 2.0-8.0 Normal (applies to non-numeric resul ts) [facility]) Baso % 0.3 % 0.0-1.0 Normal (applies to non-numeric resul ts) [facility]) Eos % 1.2 % 0.0-3.0 Normal (applies to non-numeric resul ts) [facility]) Immature Granulocyte % 0.2 % 0-3.0 Normal (applies to non-n umeric results) [facility]) Nucleated Red Blood Cell % 0.0 % 0-0 Normal (applies to n on-numeric results) [facility]) Lymph # 2.2 10 1.5-5.0 Normal (applies to non-numeric resul ts) [facility] Neutrophils # 3.3 10 1.5-8.5 Normal (applies to non-numeric re sults) [facility] Eos # 0.1 10 0.0-0.5 Normal (applies to non-numeric resul ts) [facility]) [place] # 0.4 10 0.0-0.8 Normal (applies to non-numeric resul ts) [facility] Baso # 0.0 10 0.0-0.2 Normal (applies to non-numeric resul ts) [facility]) ID Date Data Source [id number] 05/01/2020 01:08:00 PM EST [facility] ([facility]) Name Value Range Interpretation Code Description Data Vilma rce(s) Supporting Document(s) Thyroid Stimulating Hormone 0.885 uIU/ML 0.358-3.740 [facility] ([facility]) Free T4 1.21 ng/dL 0.76-1.46 [facility]) ID Date Data Source [id number] 03/26/2020 02:21:00 PM EST [facility] ([facility]) Name Value Range Interpretation Code Description Data Vilma rce(s) Supporting Document(s) Carcinoembryonic Ag [Mass/volume] in Serum or Plasma 3.0 ng/mL Above high normal [facility]) THE CEA ASSAY IS PERFORMED ON THE [employer] BY CHEMILUMINESCENCE AND SHOULD NOT BE COMPARED INTERCHANGEABLY WITH OTHER METHODS. IT SHOULD NOT BE USED ALONE A SCREENING TEST OR DIAGNOSIS FOR THE PRESENCE OR ABSENCE OF MALIGNANT DISEASE. PREDICTIONS OF DISEASE RECURRENCE SHOULD NOT BE BASED SOLELY ON VALUES OBTAINED FROM SERIAL PATIENT SERUM VALUES. ID Date Data Source [id number] 03/26/2020 02:21:00 PM EST [facility] ([facility]) Name Value Range Interpretation Code Description Data Vilma rce(s) Supporting Document(s) Glucose, Fasting 97 mg/dL 70-100 Normal (applies to non-numeric results) [facility]) Blood Urea Nitrogen 19 mg/dL 7-18 Above high normal [facility]) Creatinine For GFR 1.13 mg/dL 0.55-1.30 Normal (applies to non -numeric results) [facility]) Glomerular Filtration Rate 51.4 Normal (applies to n on-numeric results) [facility]) <content>Units are mL/min/1.73 m2</content>
<content></content>
<content>Chronic Kidney Disease Staging per NKF:</content>
<content></content>
<content>Stage I & II GFR >=60 Normal to Mildly Decreased</content>
<content>Stage III GFR 30- 59 Moderately Decreased</content>
<content>Stage IV GFR 15-29 Severely Decreased</content>
<content>Stage V GFR <15 Very Little GFR Left</content>
<content>ESRD GFR <15 on FOUNDRY FINISHER</content>
<content></content> Sodium Level 137 meq/L 136-145 Normal (applies to non-numeric res ults) [facility]) Chloride Level 102 meq/L 98-107 Normal (applies to non-numeric r esults) [facility]) Potassium Serum 4.6 meq/L 3.5-5.1 Normal (applies to non-numeric results) [facility]) Carbon Dioxide Level 33 meq/L 21-32 Above high normal [facility] ([facility]) Anion Gap 2 meq/L 8-16 Below low normal [facility] ( [facility]) Calcium Level 9.0 mg/dL 8.8-10.2 Normal (applies to non-numeric re sults) [facility]) Ast/Sgot Laboratory test result 7-37 Below low normal [facility]) Alt/SGPT 10 U/L 12-78 Below low normal [facility] ( [facility]) Alkaline Phosphatase 125 U/L 45-117 Above high normal [facility] ([facility]) Bilirubin,Total 0.3 mg/dL 0.2-1.0 Normal (applies to non-numeric results) [facility]) Total Protein 6.8 GM/DL 6.4-8.2 Normal (applies to non-numeric re sults) [facility]) Albumin/Globulin Ratio 0.9 1.2-2.2 Below low normal [facility]) Albumin 3.2 GM/DL 3.2-5.2 Normal (applies to non-numeric resul ts) [facility]) ID Date Data Source [id number] 03/26/2020 02:21:00 PM EST [facility] ([facility]) Name Value Range Interpretation Code Description Data Vilma rce(s) Supporting Document(s) Red Blood Count 5.15 10 4.00-5.40 Normal (applies to non-numeric results) [facility] White Blood Count 5.5 10 4.0-10.0 Normal (applies to non-numeri c results) [facility]) Hemoglobin 13.1 g/dL 12.0-15.5 Normal (applies to non-numeric resul ts) [facility]) Hematocrit 42.9 % 36.0-47.0 Normal (applies to non-numeric resul ts) [facility]) Mean Corpuscular Volume 83.3 fl 80.0-96.0 Normal ( applies to non-numeric results) [facility]) Mean Corpuscular HGB Conc 30.5 g/dL 32.0-36.5 Below low normal [facility]) Mean Corpuscular Hemoglobin 25.4 pg 27.0-33.0 Below low normal [facility]) Red Cell Distribution Width 15.4 % 11.5-14.5 Above high normal [facility]) Platelet Count, Automated 230 10 150-450 Normal (applies to non-numeric results) [facility]) Lymph % 34.6 % 24.0-44.0 Normal (applies to non-numeric resul ts) [facility]) Neutrophils % 54.6 % 36.0-66.0 Normal (applies to non-numeric re sults) [facility]) Eos % 1.3 % 0.0-3.0 Normal (applies to non-numeric resul ts) [facility]) [place] % 8.6 % 0.0-5.0 Above high normal [facility] ([facility]) Baso % 0.5 % 0.0-1.0 Normal (applies to non-numeric resul ts) [facility]) Immature Granulocyte % 0.4 % 0-3.0 Normal (applies to non-n umeric results) [facility]) Nucleated Red Blood Cell % 0.0 % 0-0 Normal (applies to n on-numeric results) [facility]) Lymph # 1.9 10 1.5-5.0 Normal (applies to non-numeric resul ts) [facility]) Neutrophils # 3.0 10 1.5-8.5 Normal (applies to non-numeric re sults) [facility]) [place] # 0.5 10 0.0-0.8 Normal (applies to non-numeric resul ts) [facility]) Eos # 0.1 10 0.0-0.5 Normal (applies to non-numeric resul ts) [facility]) Baso # 0.0 10 0.0-0.2 Normal (applies to non-numeric resul ts) [facility]) ID Date Data Source [id number] 02/13/2020 11:16:00 AM EST [facility] ([facility]) Name Value Range Interpretation Code Description Data Vilma rce(s) Supporting Document(s) Thyrotropin [Units/volume] in Serum or Plasma 0.58 uIU/mL 0.47-5.01 [facility]) Is patient fasting? Y ID Date Data Source [id number] 02/13/2020 11:16:00 AM EST [facility] ([facility]) Name Value Range Interpretation Code Description Data Vilma rce(s) Supporting Document(s) Cve Panel Laboratory test result [facility]) Is patient fasting? Y Cholesterol 257 mg/dL 131-200 Above high normal [facility] ([facility]) Is patient fasting? Y HDL 45 mg/dL 29-86 [facility] ([facility]) Is patient fasting? Y Triglycerides 124 mg/dL 35-160 [facility]) Is patient fasting? Y LDL 184 mg/dL 65-175 Above high normal [facility] ([facility]) Is patient fasting? Y Risk Factor 5.7 3.2-4.4 Above high normal [facility] ([facility]) Is patient fasting? Y LDL/HDL 4.09 1.47-3.22 Above high normal [facility] ([facility]) Is patient fasting? Y ID Date Data Source [id number] 02/13/2020 11:16:00 AM EST [facility] ([facility]) Name Value Range Interpretation Code Description Data Vilma rce(s) Supporting Document(s) Hemoglobin A1c/Hemoglobin.total in Blood 6.6 % 4.4-6.1 Above high normal [facility]) Is patient fasting? Y ID Date Data Source [id number] 02/13/2020 11:16:00 AM EST [facility] ([facility]) Name Value Range Interpretation Code Description Data Vilma e(s) Supporting Document(s) Comprehensive [employer] Laboratory test result [facility]) Is patient fasting? Y Sodium 138 meq/L 134-153 [facility] ([facility]) Is patient fasting? Y Chloride 100 meq/L 98-107 [facility] ([facility]) Is patient fasting? Y Potassium 4.4 meq/L 3.6-5.0 [facility] ([facility]) Is patient fasting? Y Glucose 114 mg/dL 65-110 Above high normal [facility] ([facility]) Is patient fasting? Y Co2 31 meq/L 22-30 Above high normal [facility] ([facility]) Is patient fasting? Y Creatinine 1.2 mg/dL 0.7-1.5 [facility] ([facility]) Is patient fasting? Y BUN 19 mg/dL 7-21 [facility] ([facility]) Is patient fasting? Y BUN/Creat 16 8-27 [facility] ([facility]) Is patient fasting? Y Albumin 4.3 g/dL 3.9-5.0 [facility] ([facility]) Is patient fasting? Y Total Protein 6.9 g/dL 6.3-8.2 [facility]) Is patient fasting? Y Globulin 2.6 GM/DL 2.4-3.2 [facility] ([facility]) Is patient fasting? Y A/G Ratio 1.7 0.8-2.0 [facility] ([facility]) Is patient fasting? Y Total Bili Laboratory test result 0.2-1.3 [facility] ([facility]) Is patient fasting? Y Calcium 9.2 mg/dL 8.4-10.2 [facility] ([facility]) Is patient fasting? Y SGPT/Alt 5 U/L 7-56 Below low normal [facility] ([facility]) Is patient fasting? Y Sgot/Ast 9 U/L 5-40 [facility] ([facility]) Is patient fasting? Y Alkaline Phos 98 U/L 38-126 [facility]) Is patient fasting? Y Anion Gap 7.0 mmol/L 8.0-16.0 Below low normal [facility] ( [facility]) Is patient fasting? Y Age 64 yrs [facility] ([facility]) Is patient fasting? Y Non-Aa GFR 48 mL/min [facility] ([facility]) Is patient fasting? Y Afr Amer GFR Laboratory test result [facility]) Is patient fasting? Y ID Date Data Source [id number] 02/13/2020 11:16:00 AM EST [facility] ([facility]) Name Value Range Interpretation Code Description Data Vilma rce(s) Supporting Document(s) CBC W/Automated Diff Laboratory test result [facility]) Is patient fasting? Y RBC 5.39 10^6/uL 4.20-5.40 [facility]) Is patient fasting? Y WBC 5.2 10^3/uL 4.2-11.0 [facility] ([facility]) Is patient fasting? Y Hemoglobin 13.5 g/dL 12.0-16.0 [facility] ([facility]) Is patient fasting? Y Hematocrit 44.3 % 37.0-47.0 [facility] ([facility]) Is patient fasting? Y MCH 25.0 pg 27.0-34.0 Below low normal [facility] ( [facility]) Is patient fasting? Y MCV 82.2 fL 81.0-101 [facility] ([facility]) Is patient fasting? Y MCHC 30.5 g/dL 31.0-36.0 Below low normal [facility] ( [facility]) Is patient fasting? Y RDW 15.1 % 11.5-14.5 Above high normal [facility] ([facility]) Is patient fasting? Y Platelets 211 10^3/uL 150-450 [facility] ([facility]) Is patient fasting? Y Neut 48.2 % 37.0-80.0 [facility] ([facility]) Is patient fasting? Y MPV 8.9 fL 7.4-10.4 [facility] ([facility]) Is patient fasting? Y Lymph 42.3 % 25.0-40.0 Above high normal [facility] ([facility]) Is patient fasting? Y Corson 6.2 % 3.0-8.0 [facility] ([facility]) Is patient fasting? Y Eos 2.3 % 0.0-7.0 [facility] ([facility]) Is patient fasting? Y Baso 0.6 % 0.0-2.5 [facility] ([facility]) Is patient fasting? Y %Ig 0.4 % 0.0-0.0 Above high normal [facility] ([facility]) Is patient fasting? Y %NRBC 0.0 % 0.0-0.0 [facility] ([facility]) Is patient fasting? Y #[place]orson 0.32 10^3/uL 0.00-0.90 [facility]) Is patient fasting? Y #Lymph 2.19 10^3/uL 0.60-3.40 [facility]) Is patient fasting? Y #Neut 2.50 10^3/uL 2.00-6.90 [facility]) Is patient fasting? Y #Eos 0.12 10^3/uL 0.00-0.70 [facility]) Is patient fasting? Y #Baso 0.03 10^3/uL 0.00-0.20 [facility]) Is patient fasting? Y #NRBC 0.00 10^3/uL 0.00-0.00 [facility]) Is patient fasting? Y #Ig 0.02 10^3/uL 0.00-0.10 [facility]) Is patient fasting? Y Manual Diff Laboratory test result [facility] ([facility]) Is patient fasting? Y RBC Morph Laboratory test result [facility]) Is patient fasting? Y ID Date Data Source [id number] 02/13/2020 05:48:00 PM [facility] Name Value Range Interpretation Code Description Data Vilma rce(s) Supporting Document(s) Thyrotropin [Units/volume] in Serum or Plasma by Detec tion limit <= 0.05 mIU/L 0.58 uIU/mL 0.47 - 5.01 [facility] ID Date Data Source [id number] 02/13/2020 05:35:00 PM [facility] Name Value Range Interpretation Code Description Data Vilma rce(s) Supporting Document(s) CVE PANEL [facility] LIPID PANEL Cholesterol [Mass/volume] in Serum or Plasma 257 MG/DL 131 - 200 H [facility] Deprecated Triglyceride [Mass/volume] in Serum or Plasma 124 MG/DL 3 5 - 160 [facility] HDL 45 MG/DL 29 - 86 [facility] Cholesterol in LDL [Mass/volume] in Serum or Plasma by Direc t assay 184 mg/dL 65 - 175 H [facility] Cholesterol.total/Cholesterol in HDL [Mass Ratio] in Serum o r Plasma 5.7 3.2 - 4.4 H [facility] LDL/HDL 4.09 1.47 - 3.22 H [facility] ital CVE RISK CHOL/HDL LDL/HDLMEN: 1/2 AVERAGE 3.43 1.00 AVERAGE 4.97 3.55 2X AVERAGE 9.55 6.25 3X AVERAGE 23.99 7.99WOMEN: 1/2 AVERAGE 3.27 1.47 AVERAGE 4.44 3.22 2X AVERAGE 7.05 5.03 3X AVERAGE 11.04 6.14 ID Date Data Source [id number] 02/13/2020 05:35:00 PM [facility] Name Value Range Interpretation Code Description Data Ivlma rce(s) Supporting Document(s) COMPREHENSIVE METABOLIC PANEL [facility] COMPREHENSIVE METABOLIC PANEL Sodium [Moles/volume] in Serum or Plasma 138 mEq/L 134 - 153 [facility] Potassium [Moles/volume] in Serum or Plasma 4.4 mEq/L 3.6 - 5.0 [facility] Chloride [Moles/volume] in Serum or Plasma 100 mEq/L 98 - 107 [facility] Carbon dioxide, total [Moles/volume] in Serum or Plasma 31 MEQ/L 22 - 30 H [facility] Glucose [Mass/volume] in Serum or Plasma 114 MG/DL 65 - 110 H [facility] BUN 19 MG/DL 7 - 21 [facility] Creatinine [Mass/volume] in Serum or Plasma 1.2 MG/DL 0.7 - 1.5 [facility] BUN/CREAT 16 8 - 27 [facility] Protein [Mass/volume] in Serum or Plasma 6.9 G/DL 6.3 - 8.2 [facility] Albumin [Mass/volume] in Serum or Plasma 4.3 G/DL 3.9 - 5.0 [facility] Globulin [Mass/volume] in Serum by calculation 2.6 GM/DL 2.4 - 3.2 [facility] A/G RATIO 1.7 0.8 - 2.0 [facility] Calcium [Mass/volume] in Serum or Plasma 9.2 MG/DL 8.4 - 10.2 [facility] Bilirubin.total [Mass/volume] in Serum or Plasma <0.7 MG/DL 0.2 - 1.3 [facility] Alkaline phosphatase [Enzymatic activity/volume] in Serum or Plasma 98 U/L 38 - 126 [facility] Aspartate aminotransferase [Enzymatic activity/volume] in Se rum or Plasma 9 U/L 5 - 40 [facility] Alanine aminotransferase [Enzymatic activity/volume] in Seru m or Plasma 5 U/L 7 - 56 L [facility] Anion gap 3 in Serum or Plasma 7.0 mmol/L 8.0 - 16.0 L [facility] 64 [facility]min [facility] AFR AMER GFR >60 [facility] Male GFR In terprentation [...] >32 mL/min Normal ID Date Data Source [id number] 02/13/2020 05:22:00 PM EST [facility] Name Value Range Interpretation Code Description Data Vilma rce(s) Supporting Document(s) Hemoglobin A1c/Hemoglobin.total in Blood 6.6 % 4.4 - 6.1 H [facility] {A1]{HB] ID Date Data Source [id number] 02/13/2020 05:19:00 PM EST [facility] Name Value Range Interpretation Code Description Data [facility]) Supporting Document(s) CBC W/AUTOMATED DIFF [facility] COMPLETE BLOOD COUNT Leukocytes [#/volume] in Blood by Automated count 5.2 10^3/uL 4.2 - 1 1.0 [facility] Erythrocytes [#/volume] in Blood by Automated count 5.39 10^6/uL 4. 20 - 5.40 [facility] Hemoglobin [Mass/volume] in Blood 13.5 g/dL 12.0 - 16.0 [facility] Hematocrit [Volume Fraction] of Blood by Automated count 44.3 % 3 7.0 - 47.0 [facility] Erythrocyte mean corpuscular volume [Entitic volume] by Auto mated count 82.2 fL 81.0 - 101 [facility] Erythrocyte mean corpuscular hemoglobin [Entitic mass] by Automated count 25.0 pg 27.0 - 34.0 L [facility] Erythrocyte mean corpuscular hemoglobin concentration [Mass/volume] by Automated count 30.5 g/dL 31.0 - 36.0 L [facility] Erythrocyte distribution width [Ratio] by Automated count 15.1 % 11.5 - 14.5 H [facility] Platelets [#/volume] in Blood by Automated count 211 10^3/uL 150 - 45 0 [facility] Platelet mean volume [Entitic volume] in Blood by Automated count 8.9 fL 7.4 - 10.4 [facility] Neutrophils/100 leukocytes in Blood by Automated count 48.2 % 37. 0 - 80.0 [facility] Lymphocytes/100 leukocytes in Blood by Manual count 42.3 % 25.0 - 40.0 H [facility] Monocytes/100 leukocytes in Blood by Automated count 6.2 % 3.0 - 8.0 [facility] Eosinophils/100 leukocytes in Blood by Automated count 2.3 % 0.0 - 7.0 [facility] Basophils/100 leukocytes in Blood by Automated count 0.6 % 0.0 - 2.5 [facility] %IG 0.4 % 0.0 - 0.0 H [facility] %NRBC 0.0 % 0.0 - 0.0 [facility] Neutrophils [#/volume] in Blood by Automated count 2.50 10^3/uL 2.00 - 6.90 [facility] Lymphocytes [#/volume] in Blood by Automated count 2.19 10^3/uL 0.60 - 3.40 [facility] Monocytes [#/volume] in Blood by Automated count 0.32 10^3/uL 0.00 - 0.90 [facility] Eosinophils [#/volume] in Blood by Automated count 0.12 10^3/uL 0.00 - 0.70 [facility] Basophils [#/volume] in Blood by Automated count 0.03 10^3/uL 0.00 - 0.20 [facility] #IG 0.02 10^3/uL 0.00 - 0.10 [facility]ital #NRBC 0.00 10^3/uL 0.00 - 0.00 [facility] MANUAL DIFF NOT INDICATED [facility] RBC MORPH NOT INDICATED [facility] spital ID Date Data Source [id number] 12/25/2019 12:59:00 PM EDT [facility] ([facility]) Name Value Range Interpretation Code Description Data Vilma rce(s) Supporting Document(s) Hemoglobin 11.1 g/dL 12.0-15.5 Below low normal [facility] ( [facility]) Red Blood Count 4.37 10 4.00-5.40 Normal (applies to non-numeric results) [facility]) White Blood Count 3.6 10 4.0-10.0 Below low normal [facility] ([facility]) Hematocrit 37.3 % 36.0-47.0 Normal (applies to non-numeric resul ts) [facility]) Mean Corpuscular Hemoglobin 25.4 pg 27.0-33.0 Below low normal [facility]) Mean Corpuscular Volume 85.4 fl 80.0-96.0 Normal ( applies to non-numeric results) [facility]) Mean Corpuscular HGB Conc 29.8 g/dL 32.0-36.5 Below low normal [facility]) Platelet Count, Automated 218 10 150-450 Normal (applies to non-numeric results) [facility] Red Cell Distribution Width 14.7 % 11.5-14.5 Above high normal [facility] ([facility]) Eos % 1.7 % 0.0-3.0 Normal (applies to non-numeric resul ts) [facility]) [place] % 8.4 % 0.0-5.0 Above high normal [facility] ([facility]) Neutrophils % 64.7 % 36.0-66.0 Normal (applies to non-numeric re sults) [facility]) Lymph % 24.3 % 24.0-44.0 Normal (applies to non-numeric resul ts) [facility]) Immature Granulocyte % 0.3 % 0-3.0 Normal (applies to non-n umeric results) [facility]) Baso % 0.6 % 0.0-1.0 Normal (applies to non-numeric resul ts) [facility]) Nucleated Red Blood Cell % 0.0 % 0-0 Normal (applies to n on-numeric results) [facility]) Neutrophils # 2.3 10 1.5-8.5 Normal (applies to non-numeric re sults) [facility]) Lymph # 0.9 10 1.5-5.0 Below low normal [facility]) [place] # 0.3 10 0.0-0.8 Normal (applies to non-numeric resul ts) [facility]) Baso # 0.0 10 0.0-0.2 Normal (applies to non-numeric resul ts) [facility]) Eos # 0.1 10 0.0-0.5 Normal (applies to non-numeric resul ts) [facility]) ID Date Data Source [id number] 12/25/2019 12:59:00 PM EDT [facility] ([facility]) Name Value Range Interpretation Code Description Data Vilma rce(s) Supporting Document(s) Creatinine For GFR 1.09 mg/dL 0.55-1.30 Normal (applies to non -numeric results) [facility] Blood Urea Nitrogen 14 mg/dL 7-18 Normal (applies to non-nume christopher results) [facility] Glucose, Fasting 114 mg/dL 70-100 Above high normal [facility] ([facility]) Chloride Level 104 meq/L 98-107 Normal (applies to non-numeric r esults) [facility] Sodium Level 140 meq/L 136-145 Normal (applies to non-numeric res ults) [facility] Potassium Serum 4.5 meq/L 3.5-5.1 Normal (applies to non-numeric results) [facility]) Glomerular Filtration Rate 53.6 Normal (applies to n on-numeric results) [facility] <content>Units are mL/min/1.73 m2</content>
<content></content>
<content>Chronic Kidney Disease Staging per NKF:</content>
<content></content>
<content>Stage I & II GFR >=60 Normal to Mildly Decreased</content>
<content>Stage III GFR 30- 59 Moderately Decreased</content>
<content>Stage IV GFR 15-29 Severely Decreased</content>
<content>Stage V GFR <15 Very Little GFR Left</content>
<content>ESRD GFR <15 on FOUNDRY FINISHER</content>
<content></content> Anion Gap 2 meq/L 8-16 Below low normal [facility] ( [facility]) Carbon Dioxide Level 34 meq/L 21-32 Above high normal [facility] ([facility]) Calcium Level 8.8 mg/dL 8.8-10.2 Normal (applies to non-numeric re sults) [facility]) Alt/SGPT 14 U/L 12-78 Normal (applies to non-numeric resul ts) [facility]) Alkaline Phosphatase 112 U/L 45-117 Normal (applies to non-num giselle results) [facility]) Ast/Sgot 5 U/L 7-37 Below low normal [facility] ([facility]) Albumin 2.9 GM/DL 3.2-5.2 Below low normal [facility] ( [facility]) Total Protein 6.6 GM/DL 6.4-8.2 Normal (applies to non-numeric re sults) [facility]) Albumin/Globulin Ratio 0.8 1.2-2.2 Below low normal [facility] ([facility]) Bilirubin,Total 0.3 mg/dL 0.2-1.0 Normal (applies to non-numeric results) [facility]) ID Date Data Source [id number] 12/25/2019 12:59:00 PM EDT [facility] Name Value Range Interpretation Code Description Data Vilma rce(s) Supporting Document(s) Carcinoembryonic Ag [Mass/volume] in Serum or Plasma 1.0 ng/mL Normal (applies to non-numeric results) [facility] [facility] THE CEA ASSAY IS PERFORMED ON THE [employer] BY CHEMILUMINESCENCE AND SHOULD NOT BE COMPARED INTERCHANGEABLY WITH OTHER METHODS. IT SHOULD NOT BE USED ALONE A SCREENING TEST OR DIAGNOSIS FOR THE PRESENCE OR ABSENCE OF MALIGNANT DISEASE. PREDICTIONS OF DISEASE RECURRENCE SHOULD NOT BE BASED SOLELY ON VALUES OBTAINED FROM SERIAL PATIENT SERUM VALUES. ID Date Data Source [id number] 12/25/2019 12:58:00 PM EDT [facility] ([facility] ) Name Value Range Interpretation Code Description Data Vilma rce(s) Supporting Document(s) Thyroid Stimulating Hormone 0.856 uIU/ML 0.358-3.740 [facility] ([facility]) Free T4 1.41 ng/dL 0.76-1.46 [facility] ([facility] ) Procedure Social History No Information Vital Signs ID Date Data Source UNK Name Value Range Interpretation Code Description Data Source(s) Body mass index (BMI) [Ratio] 24.1 kg/m2 24.1 k g/m2 [facility] ([facility]) Systolic blood pressure 136 mm[Hg] 136 mm[Hg] M EDENT ([facility]) [place] body weight 125 [lb_av] 125 [lb_av] MEDEN T ([facility]) Body weight 66.679 kg 66.679 kg [facility] ([facility]) Body surface area Derived from formula 1.75 m2 1.75 m2 [facility] ([facility]) Oxygen saturation in Arterial blood by Pulse oximetry 94 % 94 % [facility] ([facility]) o2 3L continuous 79 on 3L ocd Body height 65.50 [in_i] 65.50 [in_i] [facility] ([facility]) 5'5.50" Body weight 147.00 [lb_av] 147.00 [lb_av] MEDEN T ([facility]) Diastolic blood pressure 70 mm[Hg] 70 mm[Hg] [facility] ([facility]) Heart rate 86 /min 86 /min [facility] ([facility]) Body weight 60.839 kg 60.839 kg [facility] ([facility]) Body mass index (BMI) [Ratio] 21.6 kg/m2 21.6 k g/m2 [facility] ([facility]) Body surface area Derived from formula 1.69 m2 1.69 m2 [facility] ([facility]) Diastolic blood pressure 86 mm[Hg] 86 mm[Hg] [facility] ([facility]) Heart rate 89 /min 89 /min [facility] ([facility]) Body temperature 97.2 [degF] 97.2 [degF] [facility] Respiratory rate 16 /min 16 /min [facility] ( [facility]) Oxygen saturation in Arterial blood by Pulse oximetry 95 % 95 % [facility] ([facility]) Body weight 134.12 [lb_av] 134.12 [lb_av] [facility]EN T ([facility]) Body height 66 [in_i] 66 [in_i] [facility] ([facility]) 5'6" Systolic blood pressure 142 mm[Hg] 142 mm[Hg] M EDENT ([facility]) Systolic blood pressure 121 mm[Hg] 121 mm[Hg] M EDENT ([facility] ) Diastolic blood pressure 66 mm[Hg] 66 mm[Hg] [facility] ([facility] ) Body weight 134.25 [lb_av] 134.25 [lb_av] MEDEN T ([facility] ) Body mass index (BMI) [Ratio] 22.7 kg/m2 22.7 k g/m2 [facility] ([facility] ) Heart rate 96 /min 96 /min [facility] ([facility] ) Body height 64.5 [in_i] 64.5 [in_i] [facility] ([facility] ) 5'4.50" Oxygen saturation in Arterial blood by Pulse oximetry 95 % 95 % [facility] ([facility] ) [place] body weight 125 [lb_av] 125 [lb_av] MEDEN T ([facility], ) Body surface area Derived from formula 1.67 m2 1.67 m2 [facility] ([facility], ) Body weight 132.00 [lb_av] 132.00 [lb_av] MEDEN T ([facility], ) Body mass index (BMI) [Ratio] 21.6 kg/m2 21.6 k g/m2 [facility] ([facility], ) Body weight 59.875 kg 59.875 kg [facility] ([facility] ) Body height 65.50 [in_i] 65.50 [in_i] [facility] ([facility], ) 5'5.50" Systolic blood pressure 140 mm[Hg] 140 mm[Hg] M EDENT ([facility]) Diastolic blood pressure 90 mm[Hg] 90 mm[Hg] [facility] ([facility]) Heart rate 88 /min 88 /min [facility] ([facility]) Oxygen saturation in Arterial blood by Pulse oximetry 943 % 943 % [facility] ([facility]) Body height 65.50 [in_i] 65.50 [in_i] [facility] ([facility]) 5'5.50" Body weight 134.00 [lb_av] 134.00 [lb_av] [facility] T ([facility]) Body mass index (BMI) [Ratio] 22.0 kg/m2 22.0 k g/m2 [facility] ([facility]) [place] body weight 125 [lb_av] 125 [lb_av] [facility] T ([facility]) Body weight 60.782 kg 60.782 kg [facility] ([facility]) Body surface area Derived from formula 1.68 m2 1.68 m2 [facility] ([facility]) Oxygen saturation in Arterial blood by Pulse oximetry 943 % 943 % [facility] ([facility]) Body height 65.50 [in_i] 65.50 [in_i] [facility] ([facility]) 5'5.50" Body weight 134.00 [lb_av] 134.00 [lb_av] MED[facility] T ([facility]) Body mass index (BMI) [Ratio] 22.0 kg/m2 22.0 k g/m2 [facility] ([facility]) [place] body weight 125 [lb_av] 125 [lb_av] [facility] T ([facility]) Body weight 60.782 kg 60.782 kg [facility] ([facility]) Body surface area Derived from formula 1.68 m2 1.68 m2 [facility] ([facility]) Systolic blood pressure 130 mm[Hg] 130 mm[Hg] M EDENT ([facility]) Oxygen saturation in Arterial blood by Pulse oximetry 93 % 93 % [facility] ([facility]) on 3L oxygen Diastolic blood pressure 70 mm[Hg] 70 mm[Hg] [facility] ([facility]) Heart rate 90 /min 90 /min [facility] ([facility]) Respiratory rate 18 /min 18 /min [facility] ( [facility]) Body mass index (BMI) [Ratio] 21.5 kg/m2 21.5 k g/m2 [facility] ([facility]) Body surface area Derived from formula 1.68 m2 1.68 m2 [facility] ([facility]) Body temperature 98.4 [degF] 98.4 [degF] [facility] ([facility]) Body weight 133.00 [lb_av] 133.00 [lb_av] MED[facility] T ([facility]) Body weight 60.329 kg 60.329 kg [facility] ([facility]) Body height 66 [in_i] 66 [in_i] [facility] ([facility]) 5'6" Body surface area Derived from formula 1.67 m2 1.67 m2 [facility] ([facility]) Systolic blood pressure 110 mm[Hg] 110 mm[Hg] M EDENT ([facility]) Diastolic blood pressure 64 mm[Hg] 64 mm[Hg] [facility] ([facility]) Heart rate 88 /min 88 /min [facility] ([facility]) Body temperature 98.1 [degF] 98.1 [degF] [facility] ([facility]) Respiratory rate 18 /min 18 /min [facility] ( [facility]) Oxygen saturation in Arterial blood by Pulse oximetry 91 % 91 % [facility] ([facility]) Body weight 131.50 [lb_av] 131.50 [lb_av] [facility] T ([facility]) Body weight 59.648 kg 59.648 kg [facility] ([facility]) Body height 66 [in_i] 66 [in_i] [facility] ([facility]) 5'6" Body mass index (BMI) [Ratio] 21.2 kg/m2 21.2 k g/m2 [facility] ([facility]) Body surface area Derived from formula 1.68 m2 1.68 m2 [facility] ([facility]) Body weight 61.236 kg 61.236 kg [facility] ([facility]) Systolic blood pressure 138 mm[Hg] 138 mm[Hg] M EDENT ([facility]) Diastolic blood pressure 80 mm[Hg] 80 mm[Hg] [facility] ([facility]) Heart rate 98 /min 98 /min [facility] ([facility]) Oxygen saturation in Arterial blood by Pulse oximetry 92 % 92 % [facility] ([facility]) Body temperature 97.5 [degF] 97.5 [degF] [facility] ([facility]) Body height 65.50 [in_i] 65.50 [in_i] [facility] ([facility]) 5'5.50" Body weight 135.00 [lb_av] 135.00 [lb_av] MEDEN T ([facility]) Body mass index (BMI) [Ratio] 22.1 kg/m2 22.1 k g/m2 [facility] ([facility]) [place] body weight 125 [lb_av] 125 [lb_av] MED[facility] T ([facility]) Systolic blood pressure 120 mm[Hg] 120 mm[Hg] [facility] Diastolic blood pressure 82 mm[Hg] 82 mm[Hg] [facility] ([facility]) Heart rate 93 /min 93 /min [facility] ([facility]) Oxygen saturation in Arterial blood by Pulse oximetry 91 % 91 % [facility] ([facility]) Body temperature 98.0 [degF] 98.0 [degF] [facility] ([facility]) Body height 65.50 [in_i] 65.50 [in_i] [facility] ([facility]) 5'5.50" Body weight 133.00 [lb_av] 133.00 [lb_av] MEDEN T ([facility]) Body mass index (BMI) [Ratio] 21.8 kg/m2 21.8 k g/m2 [facility] ([facility]) [place] body weight 125 [lb_av] 125 [lb_av] MEDEN T ([facility], ) Body weight 60.329 kg 60.329 [facility] Body surface area Derived from formula 1.67 m2 1.67 m2 [facility] ([facility]) Systolic blood pressure 120 mm[Hg] 120 mm[Hg] M EDENT ([facility]) Diastolic blood pressure 68 mm[Hg] 68 mm[Hg] [facility] ([facility]) Heart rate 88 /min 88 /min [facility] Body temperature 98.8 [degF] 98.8 [degF] [facility] ([facility]) Oxygen saturation in Arterial blood by Pulse oximetry 91 % 91 % [facility] ([facility]) Body weight 132.25 [lb_av] 132.25 [lb_av] [facility] T ([facility]) Body weight 59.989 kg 59.989 kg [facility] ([facility]) Body height 66 [in_i] 66 [in_i] [facility] ([facility]) 5'6" Body mass index (BMI) [Ratio] 21.3 kg/m2 21.3 k g/m2 [facility] ([facility]) Body surface area Derived from formula 1.68 m2 1.68 m2 [facility]) Respiratory rate 18 /min 18 /min [facility] ( [facility]) Body height 65.50 [in_i] 65.50 [in_i] [facility] 5'5.50" Body surface area Derived from formula 1.68 m2 1.68 m2 [facility] ([facility]) Body weight 135.00 [lb_av] 135.00 [lb_av] [facility] T ([facility]) Body mass index (BMI) [Ratio] 22.1 kg/m2 22.1 k g/m2 [facility] ([facility]) [place] body weight 125 [lb_av] 125 [lb_av] [facility] T ([facility]) Body weight 61.236 kg 61.236 kg [facility] Systolic blood pressure 122 mm[Hg] 122 mm[Hg] M EDENT ([facility]) Body temperature 98.2 [degF] 98.2 [degF] [facility] ([facility]) Oxygen saturation in Arterial blood by Pulse oximetry 90 % 90 % [facility] ([facility]) Respiratory rate 18 /min 18 /min [facility] ( [facility]) Diastolic blood pressure 70 mm[Hg] 70 mm[Hg] [facility] ([facility]) Body weight 133.25 [lb_av] 133.25 [lb_av] [facility] T ([facility]) Heart rate 88 /min 88 /min [facility] ([facility]) Body weight 60.442 kg 60.442 kg [facility] ([facility]) Body height 66 [in_i] 66 [in_i] [facility] ([facility]) 5'6" Body mass index (BMI) [Ratio] 21.5 kg/m2 21.5 k g/m2 [facility] ([facility]) Body surface area Derived from formula 1.68 m2 1.68 m2 [facility] ([facility]) Body mass index (BMI) [Ratio] 22.7 kg/m2 22.7 k g/m2 [facility] ([facility] ) Heart rate 85 /min 85 /min [facility] ([facility] ) Body height 64.5 [in_i] 64.5 [in_i] [facility] ([facility] ) 5'4.50" Diastolic blood pressure 70 mm[Hg] 70 mm[Hg] [facility] ([facility] ) Body temperature 96.4 [degF] 96.4 [degF] [facility] ([facility] ) Systolic blood pressure 122 mm[Hg] 122 mm[Hg] M EDENT ([facility] ) Body weight 134.25 [lb_av] 134.25 [lb_av] MEDEN T ([facility] ) Oxygen saturation in Arterial blood by Pulse oximetry 98 % 98 % [facility] ([facility] ) Diastolic blood pressure 82 mm[Hg] 82 mm[Hg] [facility] ([facility]) Heart rate 92 /min 92 /min [facility] ([facility]) Oxygen saturation in Arterial blood by Pulse oximetry 90 % 90 % [facility] ([facility]) Systolic blood pressure 132 mm[Hg] 132 mm[Hg] M [facility] ([facility]) Body weight 133.00 [lb_av] 133.00 [lb_av] [facility] T ([facility]) Body mass index (BMI) [Ratio] 21.8 kg/m2 21.8 k g/m2 [facility] ([facility]) [place] body weight 125 [lb_av] 125 [lb_av] [facility] Body weight 60.329 kg 60.329 kg [facility] ([facility]) Body surface area Derived from formula 1.67 m2 1.67 m2 [facility] ([facility]) Body height 65.50 [in_i] 65.50 [in_i] [facility] ([facility]) 5'5.50" Body temperature 97.8 [degF] 97.8 [degF] [facility] ([facility]) ID Date Data Source [id number] 09/18/2020 11:18:24 AM EDT [facility] Name Value Range Interpretation Code Description Data Source(s) WEIGHT RECORDED 132.00 pounds 132.00 pounds [facility] Height 66 Inches 066 Inches [facility] ID Date Data Source [id number] 09/18/2020 11:15:54 AM EDT [facility] Name Value Range Interpretation Code Description Data Source(s) WEIGHT RECORDED 132.00 pounds 132.00 pounds [facility] Height 66 Inches 066 Inches [facility]
[2021-02-06] MEDS ORDERED: COMBIVENT RESPIMAT 100-20MCG INHALER 4GM INH PRN (20:30)
[2021-02-06] MEDS ORDERED: BUDESONIDE 0.5 MG/2 ML INHALATION SUSPENSION PO PRN (20:30)
[2021-02-06] MEDS ORDERED: GLUCAGON INJ 1MG VIAL SC PRN (20:35)
[2021-02-06] MEDS ORDERED: DEXTROSE 50% 50 ML SYRINGE IV PRN (20:35)
[2021-02-06] MEDS ORDERED: GLUCOSE 4GM CHEW TABLET PO PRN (20:35)
[2021-02-06] MEDS ORDERED: MIRTAZAPINE 15 MG TAB PO SCH (21:00)
[2021-02-06 22:10] VITALS: BP 133/74
[2021-02-06 22:39] LABS: APPEARANCE, URINE CLEAR (CLEAR); BACTERIA, URINE AUTO NEGATIVE (NEGATIVE); BILIRUBIN, URINE AUTO NEGATIVE (NEGATIVE); BLOOD, URINE BLOOD 1+ (NEGATIVE); COLOR, URINE COLORLESS (YELLOW); GLUCOSE, URINE (UA) AUTO NEGATIVE (NEGATIVE); KETONE, URINE AUTO NEGATIVE (NEGATIVE); LEUKOCYTE ESTERASE, URINE AUTO NEGATIVE (NEGATIVE); MUCUS, URINE SMALL (NEGATIVE); NITRITE, URINE AUTO NEGATIVE (NEGATIVE); PROTEIN, URINE AUTO NEGATIVE (NEGATIVE); RBC, URINE AUTO 1 /HPF (0-3); SPECIFIC GRAVITY URINE AUTO 1.004 (1.002-1.035); SQUAMOUS EPITHELIAL CELL UR AU 0 /HPF (0-6); UROBILINOGEN, URINE AUTO 0.2 mg/dL (0.0-2.0); WBC, URINE AUTO 1 /HPF (0-3)
[2021-02-06] MEDS: HumaLOG INSULIN (NovoLOG) PER UNIT SC SCH (22:50)
[2021-02-06] MEDS: zolPIDEM TARTRATE 5 MG TAB PO SCH (22:54)
[2021-02-06] MEDS: DOCUSATE SODIUM 100MG CAPSULE PO SCH (22:54)
[2021-02-06] MEDS: OMEPRAZOLE 20 MG CAP PO SCH (22:54)
[2021-02-06] MEDS ORDERED: SALIVA SUBSTITUTE(MOUTHKOTE) BTL MT PRN (23:05)
[2021-02-06] MEDS ORDERED: SODIUM CHLORIDE 0.9% INJ 10 ML SYR IV ONE (23:15)
[2021-02-06 23:24] VITALS: O2SAT 88
[2021-02-07 00:26] VITALS: O2SAT 89
[2021-02-07 02:52] VITALS: O2SAT 91
[2021-02-07 03:46] LABS: HEMATOCRIT 40.6 % (36.0-47.0); HEMOGLOBIN 11.4 g/dl (12.0-15.5); MEAN CORPUSCULAR HEMOGLOBIN 23.3 pg (27.0-33.0); MEAN CORPUSCULAR HGB CONC 28.1 g/dl (32.0-36.5); PLATELET COUNT, AUTOMATED 200 10^3/uL (150-450); RED BLOOD COUNT 4.89 10^6/uL (4.00-5.40); WHITE BLOOD COUNT 5.2 10^3/uL (4.0-10.0)
[2021-02-07 03:57] LABS: INR 0.96; PROTHROMBIN TIME 13.2 SECONDS (12.7-14.5)
[2021-02-07 03:58] LABS: PARTIAL THROMBOPLASTIN TIME 34.8 SECONDS (25.9-37.0)
[2021-02-07 04:23] LABS: CALCIUM LEVEL 8.1 MG/DL (8.8-10.2); CREATININE FOR GFR 1.42 MG/DL (0.55-1.30); GLOMERULAR FILTRATION RATE 39.4 (>45); MAGNESIUM LEVEL 2.1 MG/DL (1.8-2.4); POTASSIUM SERUM 4.5 MEQ/L (3.5-5.1)
[2021-02-07 06:00] VITALS: BP 119/63
[2021-02-07] MEDS: TIOTROPIUM INHALER/CAPSULE (SPIRIVA) INH SCH (07:39)
[2021-02-07] MEDS: COMBIVENT RESPIMAT 100-20MCG INHALER 4GM INH SCH ×4 (07:39→20:00)
--- NOTE | 2021-02-07 08:43 | REP ---
INDICATION: sob. COMPARISON: CT chest without contrast, 12/29/2020. TECHNIQUE: Imaging protocol: Computed tomography of the chest without IV contrast. Contiguous 3 mm thick axial projection images were obtained through the chest. 2D sagittal and coronal reconstructions were performed. Radiation optimization: All CT scans at this facility use at least one of these dose optimization techniques: automated exposure control; mA and/or kV adjustment per patient size (includes targeted exams where dose is matched to clinical indication); or iterative reconstruction. FINDINGS: Lower neck: The thyroid gland is normal. There is no supraclavicular lymphadenopathy. Mediastinum: There is extensive mediastinal and right hilar lymphadenopathy, the largest a cluster of right paratracheal lymph nodes measuring 2.3 x 2.0 cm. Heart/thoracic aorta: The heart is enlarged. There is a minimal pericardial effusion. There is calcific vascular disease of the thoracic aorta and coronary arteries. Upper abdomen: There is calcific vascular disease of the abdominal aorta. There is a 2.9 cm in diameter right adrenal adenoma (density -13 HU). Thoracic esophagus: Normal. Chest wall and axilla: There is a chemotherapy port in the right upper chest wall with the tip in the superior vena cava via the right internal jugular vein. There is moderate multilevel degenerative disc disease of the thoracic spine with mild levoscoliosis. Lung parenchyma: There is moderate upper lobe predominant centrilobular emphysema. There is superimposed interstitial thickening and pulmonary venous hypertension consistent with congestive heart failure. There is a large right pleural effusion. There is airspace disease with air bronchograms in the basilar segments of the lower lobe of the right lung consistent with atelectasis or pneumonia. There is a stable 4 x 4 mm soft tissue density nodule in the apicoposterior segment of the upper lobe of the left lung (image 41). There is a 14 x 10 x 9 mm (was 13 x 10 x 9 mm) soft tissue density nodule with a spiculated margin in the lateral basal segment the lower lobe of the left lung. There are stable air cysts in the lower lobe of the left lung and the lingula. There is linear scarring in the middle lobe of the right lung and inferior segment of the lingula. Fiducial markers are again noted in the upper lobe of the right lung. There is again noted focal peribronchovascular consolidation in a right lower lobe segmental bronchus (image 55) IMPRESSION: 1. Moderate emphysema. 2. Spiculated nodule in the lower lobe of the left lung consistent with a primary bronchogenic carcinoma. Unchanged. 3. Mediastinal and hilar lymphadenopathy. Unchanged. 4. Congestive heart failure with a large right pleural effusion and atelectasis or pneumonia of the lower lobe of the right lung. Not present previously. 5. Calcific vascular disease of the thoracoabdominal aorta and coronary arteries. Unchanged. 6. Right adrenal adenoma. Unchanged. 7. Other findings as noted, unchanged. <Electronically signed by Aime Hoffmann > 02/07/21 [id number]
--- NOTE | 2021-02-07 08:50 | IPN ---
PROGRESS NOTE DATE: 02/07/2021 SUBJECTIVE: The patient says that she still has shortness of breath but improved from yesterday. Cough productive of whitish sputum is decreased. No fevers or chills overnight. No headache, changes in vision. The patient has gained about 15 pounds of weight in the past two weeks. Overnight the patient had only 800 mL of urine output since midnight. This morning she has no chest pain, pressure, tightness, lightheadedness or dizziness. No complaints of thirst. OBJECTIVE: VITAL SIGNS: Temperature 97.9, pulse 93, respiratory rate 20, blood pressure 119/63, 93% on 3 liters nasal cannula. GENERAL: The patient is eating at the bedside, sitting at 90 degrees. No distress, able to speak full sentences without conversational dyspnea. NECK: No JVD, no thyromegaly or cervical lymphadenopathy. HEENT: Mucous membranes moist. LUNGS: Diminished with bilateral wheezing. HEART: S1, S2, sinus rhythm. ABDOMEN: Soft, nontender, non-distended, positive bowel sounds. EXTREMITIES: No cyanosis, clubbing. Positive lower extremity edema. Laboratory data, imaging studies, microbiology have been reviewed. 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 The patient is admitted for the following acute issues: 1. [id number] diastolic congestive heart failure, presently on Lasix, 1.8 liter fluid restriction, strict I's and O's, daily weight, telemetry, echocardiogram ordered. Monitor for worsening renal dysfunction. Check baseline metabolic panel at 2 p.m. Supplement magnesium and potassium. 2. COPD with chronic 2-3 liters of oxygen, keep saturation 89 to 92%. 3. Question of community-acquired pneumonia. Avalox due to Penicillin allergy. Check sputum culture and sensitivity, urine Legionella, urine Streptococcal antigen. 4. Chronic kidney disease, stage 3. Monitor I's and O's, daily weight and repeat metabolic panel. 5. 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 MTDD
[2021-02-07] MEDS ORDERED: FUROSEMIDE 40MG/4ML VIAL (J1940) IV SCH (09:00)
[2021-02-07] MEDS: DOCUSATE SODIUM 100MG CAPSULE PO SCH ×2 (09:04→21:37)
[2021-02-07] MEDS: MOXIFLOXACIN 400 MG TAB PO SCH (09:04)
[2021-02-07] MEDS: ENOXAPARIN 30MG/0.3ML SYRINGE (J1650 PER 10MG) SC SCH (09:04)
[2021-02-07] MEDS: MIDODRINE 5 MG TAB PO SCH ×3 (09:04→16:53)
[2021-02-07] MEDS: FUROSEMIDE 40MG/4ML VIAL (J1940) IV SCH ×3 (09:04→16:54)
[2021-02-07] MEDS: HumaLOG INSULIN (NovoLOG) PER UNIT SC SCH ×4 (09:07→21:00)
[2021-02-07] MEDS: MIRTAZAPINE 15 MG TAB PO PRN (09:15)
[2021-02-07 12:24] VITALS: BP 108/61
[2021-02-07 14:00] VITALS: BP 109/61
[2021-02-07 14:58] LABS: BLOOD UREA NITROGEN 31 MG/DL (7-18); CALCIUM LEVEL 7.7 MG/DL (8.8-10.2); CARBON DIOXIDE LEVEL 39 MEQ/L (21-32); CHLORIDE LEVEL 99 MEQ/L (98-107); CK-MB VALUE MASS 1.4 NG/ML (<3.6); CPK CREATINE PHOSPHOKINASE 28 U/L (26-192); CREATININE FOR GFR 1.32 MG/DL (0.55-1.30); GLOMERULAR FILTRATION RATE 42.9 (>45); GLUCOSE, FASTING 115 MG/DL (70-100); MAGNESIUM LEVEL 1.8 MG/DL (1.8-2.4); NT-PRO BNP 18880 PG/ML (<125); POTASSIUM SERUM 4.1 MEQ/L (3.5-5.1); SODIUM LEVEL 140 MEQ/L (136-145); TROPONIN I < 0.02 NG/ML (< 0.10)
[2021-02-07] MEDS: OMEPRAZOLE 20 MG CAP PO SCH (21:37)
[2021-02-07] MEDS: zolPIDEM TARTRATE 5 MG TAB PO SCH (21:37)
[2021-02-07 22:00] VITALS: BP 123/72
[2021-02-08] VITALS (7 sets, daily range): BP systolic 106–128; BP diastolic 63–87; O2SAT 88
[2021-02-08] MEDS: MOXIFLOXACIN 400 MG TAB PO SCH (05:30)
[2021-02-08 06:59] LABS: HEMATOCRIT 38.4 % (36.0-47.0); HEMOGLOBIN 10.4 g/dl (12.0-15.5); MEAN CORPUSCULAR HEMOGLOBIN 22.7 pg (27.0-33.0); MEAN CORPUSCULAR HGB CONC 27.1 g/dl (32.0-36.5); MEAN CORPUSCULAR VOLUME 83.7 fl (80.0-96.0); PLATELET COUNT, AUTOMATED 167 10^3/uL (150-450); RED BLOOD COUNT 4.59 10^6/uL (4.00-5.40); WHITE BLOOD COUNT 5.8 10^3/uL (4.0-10.0)
[2021-02-08 07:19] LABS: BLOOD UREA NITROGEN 29 MG/DL (7-18); CALCIUM LEVEL 7.7 MG/DL (8.8-10.2); CARBON DIOXIDE LEVEL 40 MEQ/L (21-32); CHLORIDE LEVEL 97 MEQ/L (98-107); CREATININE FOR GFR 1.32 MG/DL (0.55-1.30); GLOMERULAR FILTRATION RATE 42.9 (>45); GLUCOSE, FASTING 141 MG/DL (70-100); MAGNESIUM LEVEL 1.8 MG/DL (1.8-2.4); SODIUM LEVEL 140 MEQ/L (136-145); TROPONIN I < 0.02 NG/ML (< 0.10)
[2021-02-08] MEDS: TIOTROPIUM INHALER/CAPSULE (SPIRIVA) INH SCH (07:44)
[2021-02-08] MEDS: COMBIVENT RESPIMAT 100-20MCG INHALER 4GM INH SCH ×2 (07:44→12:00)
[2021-02-08] MEDS ORDERED: MAG SULF 1GM/100ML (MAG RUN) 1 GM in IV 1 EA IV ONE (08:30)
[2021-02-08] MEDS: HumaLOG INSULIN (NovoLOG) PER UNIT SC SCH ×5 (08:52→20:25)
[2021-02-08] MEDS: FUROSEMIDE 40MG/4ML VIAL (J1940) IV SCH ×2 (08:52→12:14)
[2021-02-08] MEDS: MIDODRINE 5 MG TAB PO SCH ×3 (08:52→17:03)
[2021-02-08] MEDS: DOCUSATE SODIUM 100MG CAPSULE PO SCH ×2 (08:53→21:11)
[2021-02-08] MEDS: ENOXAPARIN 30MG/0.3ML SYRINGE (J1650 PER 10MG) SC SCH (08:53)
--- NOTE | 2021-02-08 11:19 | ECHO ---
ECHOCARDIOGRAM DATE OF PROCEDURE: 02/07/2021 Age: 65 Gender: Female Height: 168 cm Weight: 70 kg REFERRING PROVIDER: Shantelle PATIENT LOCATION: Room 4220 REASON FOR THE TESTING: Congestive heart failure 2D MEASUREMENTS: IVS 1.3 cm LV 3.5 cm LVPW 1.2 cm LA 3.4 cm Aorta 3.2 cm IVC 2.6 cm DOPPLER MEASUREMENT Peak velocity across the aortic valve 2.1 m/s Peak velocity across the LVOT 1.1 m/s Peak gradient across the aortic valve 17 mmHg Mean gradient across the aortic valve 9 mmHg Mitral E 0.79 Mitral A 0.93 with a ratio of 0.8 Maximum tricuspid valve velocity 3.2 m/s 2D COMMENTS: 1. An increased left ventricular wall thickness with normal left ventricular size and a normal, hyperdynamic left ventricle. The estimated left ventricular systolic ejection fraction is 70%-75%. 2. Normal left atrium. The right atrium appeared to be mildly enlarged. Normal right ventricle. 3. The atrial septum appeared to be normal without evidence of defect or shunt. 4. Normal aortic root. 5. No pericardial effusion seen. 6. Mildly calcified aortic valve with minimally restricted leaflet motion. Mildly calcified mitral annulus with normal anterior mitral valve leaflet motion. Normal tricuspid valve and pulmonic valve. The proximal pulmonary artery branches also appear to be normal. 7. The inferior vena cava is dilated. Central venous pressure is probably elevated. Doppler: It detects trace aortic regurgitation, trace mitral regurgitation, moderate tricuspid regurgitation and trace pulmonic regurgitation. The calculated pulmonary artery systolic pressure varies between 40-50 mmHg. Abnormal relaxation pattern was noted across the mitral valve leaflets as well as the mitral valve annulus, consistent with features of grade 1 left ventricular diastolic function. IMPRESSION: 1. Normal global left ventricular systolic function with mild concentric left ventricular hypertrophy. There are some features of grade 1 left ventricular diastolic dysfunction manifested by abnormal relaxation. 2. Aortic valve sclerosis with trace aortic regurgitation and mild aortic stenosis. 3. Mitral annulus calcification with trace mitral regurgitation. 4. Moderate tricuspid regurgitation with moderate pulmonary hypertension and dilated right atrium. The right ventricle appeared to be normal in size and function. 5. There are some features of elevated central venous pressure, the inferior vena cava was mildly enlarged.
--- NOTE | 2021-02-08 11:22 | ECGEPIP ---
[facility] Test Date: 2021-02-08 Pat Name: SONA MARTINEZ Department: Room: [place] [address] Gender: Female Community Service Aide: AYLEEN : 1955 Requested By: CORRINE NUNES Order Number: [id number] Reading MD: James Campos Measurements Intervals [place] Rate: 80 P: 57 HI: 144 QRS: 110 QRSD: 70 T: 27 QT: 366 QTc: 422 Interpretive Statements Normal sinus rhythm Right axis deviation LEFT POSTERIOR FASCICULAR BLOCK ST & T wave abnormality, consider anterior ischemia Last tracing on 02/06/21 at 18:04 No remarkable changes Electronically Signed on 02-08-2021 11:22:29 EDT by James Campos
--- NOTE | 2021-02-08 12:01 | IPNPDOC ---
Date Seen The patient was seen on 02/08/21. Progress Note SUBJECTIVE: Patient diuresed well overnight and remains a net negative balance. She denies any chest pain pressure tightness lightheadedness dizziness. She continues to have cough productive of white scant sputum without fever or chills. No nausea vomiting diarrhea. She is tolerating her diet well. Patient is requesting her appointment with Dr. Galvez to be rescheduled, With plans for bronchoscopy as outpatient. OBJECTIVE: Physical exam VITAL SIGNS: See below GENERAL: Ambulated from the bathroom to the bedside chair Unassisted without a walker or cane, without respiratory distress. NECK: Mild JVD, no thyromegaly or cervical lymphadenopathy. HEENT: Mucous membranes moist. LUNGS: Diminished fine crepitations bilateral bases, faint expiratory wheezing HEART: S1, S2, sinus rhythm. ABDOMEN: Soft, nontender, non-distended, positive bowel sounds. EXTREMITIES: No cyanosis, clubbing. Positive lower extremity edema. Laboratory data, imaging studies, microbiology have been reviewed. 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 [id number] diastolic congestive heart failure, presently on Lasix, 1.8 liter fluid restriction, strict I's and O's, daily weight, telemetry, echocardiogram ordered. Monitor for worsening renal dysfunction. If needed, supplement magnesium and potassium. Patient is not exhibiting any orthostatic symptoms. We will continue with Net negative goal of at least 1 L daily until the patient is euvolemic. Cardiac markers being monitored. Continue on telemetry. COPD with chronic 2-3 liters of oxygen, keep saturation 89 to 92%. Bronchodilators as needed. community-acquired pneumonia. 7 days of Avelox due to Penicillin allergy. Awaiting results of sputum culture and sensitivity, urine Legionella, urine Streptococcal antigen. Chronic kidney disease, stage 3. 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 VS, I&O, 24H, Fishbone Vital Signs/I&O Vital Signs Date Time Temp Pulse Resp B/P (MAP) Pulse Ox O2 Delivery O2 Flow Rate FiO2 02/08/21 09:00 3.0 02/08/21 08:48 84 117/68 (84) 02/08/21 06:00 98.3 17 96 Nasal Cannula I&O- Last 24 Hours up to 6 AM 02/08/21 06:00 Intake Total 1135 ml Output Total 1900 ml Balance -765 ml Laboratory Data 24H LABS Laboratory Tests 2 02/07/21 14:23: Anion Gap 2L, Glomerular Filtration Rate 42.9L, Calcium Level 7.7L, Magnesium Level 1.8, Total Creatine Kinase 28, Creatine Kinase MB 1.4, Creatine Kinase MB Relative Index 5.00H, Troponin I < 0.02, AW-[id number]-[id number]-Type Natriuretic Peptide [id number] 02/07/21 16:46: Bedside Glucose (Misc Panel) 140H 02/07/21 19:26: Bedside Glucose (Misc Panel) 117H 02/08/21 06:05: Anion Gap 3L, Glomerular Filtration Rate 42.9L, Calcium Level 7.7L, Magnesium Level 1.8, Troponin I < 0.02, Nucleated Red Blood Cells % (auto) 0.0 02/08/21 11:32: Bedside Glucose (Misc Panel) 89 CBC/BMP Laboratory Tests 02/07/21 14:23 02/08/21 06:05 Microbiology Microbiology 02/06/21 Blood Culture - Preliminary, Resulted No growth after 24 hours . All specim... 02/06/21 Respiratory Virus Panel (PCR) ([facility]) - Final, Complete 02/06/21 Blood Culture - Preliminary, Resulted No growth after 24 hours . All specim... PRAFUL BOONE MD Feb 08, 2021 12:01
[2021-02-08 12:35] LABS: CREATININE FOR GFR 1.36 MG/DL (0.55-1.30); GLOMERULAR FILTRATION RATE 41.4 (>45); MAGNESIUM LEVEL 2.2 MG/DL (1.8-2.4); POTASSIUM SERUM 3.7 MEQ/L (3.5-5.1)
[2021-02-08] MEDS ORDERED: FUROSEMIDE injection 250 MG in D5W 225 ML IV SCH ×2 (16:30→18:00)
[2021-02-08] MEDS: MIRTAZAPINE 15 MG TAB PO PRN (17:41)
[2021-02-08 19:26] LABS: CALCIUM LEVEL 7.5 MG/DL (8.8-10.2); CREATININE FOR GFR 1.37 MG/DL (0.55-1.30); GLOMERULAR FILTRATION RATE 41.1 (>45); MAGNESIUM LEVEL 1.9 MG/DL (1.8-2.4); POTASSIUM SERUM 3.8 MEQ/L (3.5-5.1)
[2021-02-08] MEDS: OMEPRAZOLE 20 MG CAP PO SCH (21:11)
[2021-02-08] MEDS: zolPIDEM TARTRATE 5 MG TAB PO SCH (21:11)
[2021-02-09] VITALS (9 sets, daily range): BP systolic 115–148; BP diastolic 64–85; O2SAT 89–95
[2021-02-09] MEDS: MOXIFLOXACIN 400 MG TAB PO SCH (06:43)
[2021-02-09 06:55] LABS: HEMATOCRIT 36.8 % (36.0-47.0); HEMOGLOBIN 10.4 g/dl (12.0-15.5); MEAN CORPUSCULAR HGB CONC 28.3 g/dl (32.0-36.5); MEAN CORPUSCULAR VOLUME 81.2 fl (80.0-96.0); PLATELET COUNT, AUTOMATED 161 10^3/uL (150-450); RED BLOOD COUNT 4.53 10^6/uL (4.00-5.40); WHITE BLOOD COUNT 5.1 10^3/uL (4.0-10.0)
[2021-02-09 07:25] LABS: CALCIUM LEVEL 7.6 MG/DL (8.8-10.2); CREATININE FOR GFR 1.16 MG/DL (0.55-1.30); GLOMERULAR FILTRATION RATE 49.8 (>45); MAGNESIUM LEVEL 1.8 MG/DL (1.8-2.4); POTASSIUM SERUM 3.4 MEQ/L (3.5-5.1)
[2021-02-09 07:28] LABS: ALBUMIN 2.5 GM/DL (3.2-5.2); BILIRUBIN,DIRECT 0.1 MG/DL (0.0-0.2); BILIRUBIN,TOTAL 0.4 MG/DL (0.2-1.0); TOTAL PROTEIN 5.6 GM/DL (6.4-8.2)
[2021-02-09] MEDS: TIOTROPIUM INHALER/CAPSULE (SPIRIVA) INH SCH (08:01)
[2021-02-09] MEDS: COMBIVENT RESPIMAT 100-20MCG INHALER 4GM INH SCH ×4 (08:01→20:00)
[2021-02-09] MEDS: HumaLOG INSULIN (NovoLOG) PER UNIT SC SCH ×4 (08:47→20:11)
[2021-02-09] MEDS: DOCUSATE SODIUM 100MG CAPSULE PO SCH ×2 (09:00→20:17)
[2021-02-09] MEDS: MIDODRINE 5 MG TAB PO SCH ×3 (09:01→15:39)
[2021-02-09] MEDS: ENOXAPARIN 30MG/0.3ML SYRINGE (J1650 PER 10MG) SC SCH (09:02)
--- NOTE | 2021-02-09 09:23 | REP ---
INDICATION: EFFUSION. COMPARISON: 02/06/2021 at 5:45 p.m. TECHNIQUE: Portable FINDINGS: The technique utilized in obtaining the radiograph has magnified the cardiac silhouette and accentuated the interstitial markings. The lung schultz are less expanded today. The interstitial markings are diffusely increased. Bibasilar curvilinear densities have developed. There is cardiomegaly accentuated by technique. The tip of the central venous catheter is unchanged. The osseous structures are unchanged. IMPRESSION: New bibasilar opacities. Atelectasis/pneumonia/small effusions. The interstitial markings have increased as described above. Interstitial edema is suspected. Correlate clinically. Other findings as described above. <Electronically signed by Urbano Post > 02/09/21 [id number]
[2021-02-09] MEDS: POTASSIUM CHLORIDE 10MEQ SR TABLET PO SCH ×2 (09:56→20:18)
[2021-02-09] MEDS: FUROSEMIDE 40MG/4ML VIAL (J1940) IV SCH ×3 (09:56→18:19)
--- NOTE | 2021-02-09 11:34 | REP ---
INDICATION: POST RIGHT THORA, 2 VIEW. COMPARISON: Radiograph earlier today. TECHNIQUE: Two views of the chest. FINDINGS: There is a decreased amount of right pleural fluid, with a small amount of residual pleural fluid/thickening bilaterally. There is no pneumothorax. There is very mild atelectasis/infiltrate in each lung base. There is mild cardiomegaly. There is mild calcification and tortuosity of the thoracic aorta. The mediastinal silhouette is unchanged. Right central venous catheter is again noted with the tip in the superior vena cava. There is osteopenia with diffuse degenerative changes of the spine. IMPRESSION: Decreased amount of right pleural fluid status post right thoracentesis. No pneumothorax. <Electronically signed by Chauncey Mace > 02/09/21 0910
--- NOTE | 2021-02-09 11:59 | IPNPDOC ---
Date Seen The patient was seen on 02/09/21. Progress Note SUBJECTIVE: Patient is anxious about proceeding with a thoracentesis due to prior history of lung collapse but that was after a lung biopsy. Patient says her breathing is better, but still has dyspnea on exertion. Cough productive of white sputum without fever chills Denies any chest pain pressure tightness diaphoresis feeling of impending doom epigastric pain OBJECTIVE: Physical exam VITAL SIGNS: See below GENERAL: Sitting in bed at 45 degree angle no distress or conversational dyspnea No pallor icterus jaundice no use of respiratory accessory muscles NECK: Mild JVD, no thyromegaly or cervical lymphadenopathy. HEENT: Mucous membranes moist. LUNGS: Diminished fine crepitations bilateral bases HEART: S1, S2, sinus rhythm. Left lower sternal border systolic ejection murmur ABDOMEN: Soft, nontender, non-distended, positive bowel sounds. EXTREMITIES: No cyanosis, clubbing. Positive lower extremity edema. Laboratory data, imaging studies, microbiology have been reviewed. 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 [id number]-er-[id number] diastolic congestive heart failure, presently on Lasix, 1.8 liter fluid restriction, strict I's and O's, daily weight, telemetry, echocardiogram reviewed. Patient was changed to IV Lasix due to soft blood pressure but did not diurese well. Therefore we will give Lasix 40 IV every 6 hourly to achieve a Net negative goal of at least 1 L daily until the patient is euvolemic.Continue on telemetry. Midodrine to increase patient's blood pressure to allow for diuresis. Supplemental oxygen to keep saturations 88 to 92% Spiculated mass on the left lung Missed bronchoscopy appointment with Dr. Galvez due to recent admission for congestive heart failure exacerbation,pneumonia, And large right pleural effusion. Thoracentesis ordered today with pleural fluid analysis and cytology. Large right pleural effusion with history of spiculated mass on the left which is most likely bronchogenic carcinoma Thoracentesis for diagnostic and therapeutic purposes today Pleural fluid analysis including cytology sent COPD with chronic 2-3 liters of oxygen, keep saturation 89 to 92%. Not in acute exacerbation. Bronchodilators as needed. community-acquired pneumonia. 7 days of Avelox due to Penicillin allergy. Nebulizer treatment and supplemental oxygen to keep saturations above 88% Chronic kidney disease, stage 3. 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 VS, I&O, 24H, Fishbone Vital Signs/I&O Vital Signs Date Time Temp Pulse Resp B/P (MAP) Pulse Ox O2 Delivery O2 Flow Rate FiO2 02/09/21 10:40 99.0 81 20 96 Nasal Cannula 3.0 02/09/21 09:59 118/64 (82) I&O- Last 24 Hours up to 6 AM 02/09/21 06:00 Intake Total 700 ml Output Total 1425 ml Balance -725 ml Laboratory Data 24H LABS Laboratory Tests 2 02/08/21 12:00: Anion Gap 0L, Glomerular Filtration Rate 41.4L, Calcium Level 8.0L, Whole Blood Ionized Calcium 4.1L, Magnesium Level 2.2 02/08/21 17:10: Bedside Glucose (Misc Panel) 147H 02/08/21 18:38: Anion Gap 1L, Glomerular Filtration Rate 41.1L, Calcium Level 7.5L, Whole Blood Ionized Calcium 4.1L, Magnesium Level 1.9 02/08/21 19:53: Bedside Glucose (Misc Panel) 143H 02/09/21 06:35: Nucleated Red Blood Cells % (auto) 0.0, Anion Gap 2L, Glomerular Filtration Rate 49.8, Calcium Level 7.6L, Magnesium Level 1.8, Total Bilirubin 0.4, Direct Bilirubin 0.1, Aspartate Amino Transf (AST/SGOT) 6L, Alanine Aminotransferase (ALT/SGPT) 20, Alkaline Phosphatase 97, Lactate Dehydrogenase 122, Total Protein 5.6L, Albumin 2.5L, Albumin/Globulin Ratio 0.8L 02/09/21 11:46: Bedside Glucose (Misc Panel) 110 CBC/BMP Laboratory Tests 02/08/21 12:00 02/08/21 18:38 02/09/21 06:35 Microbiology Microbiology 02/06/21 Blood Culture - Preliminary, Resulted No Growth after 48 hours. All Specime... 02/06/21 Respiratory Virus Panel (PCR) ([facility]) - Final, Complete 02/06/21 Blood Culture - Preliminary, Resulted No Growth after 48 hours. All Specime... PRAFUL BOONE MD Feb 09, 2021 11:59
[2021-02-09 12:25] LABS: APPEARANCE, BODY FLUID HAZY (CLEAR); PLEURAL FL COLOR PALE YELLOW (COLORLESS); SOURCE, BODY FLUID PLEURAL
[2021-02-09 12:35] LABS: PH BODY FLUID 7.726 UNITS (NOT ESTABLISHED); SOURCE, BODY FLUID pH PLEURAL
[2021-02-09 13:23] LABS: AMYLASE, BODY FLUID 25 U/L (NOT ESTABLISHED); CHOLESTEROL, BODY FLUID < 50 MG/DL (NOT ESTABLISHED); LDH, BODY FLUID 56 U/L (NOT ESTABLISHED); SOURCE, BODY FLUID ALBUMIN PLEURAL; SOURCE, BODY FLUID AMYLASE PLEURAL; SOURCE, BODY FLUID CHOL PLEURAL; SOURCE, BODY FLUID GLUCOSE PLEURAL; SOURCE, BODY FLUID LDH PLEURAL; SOURCE, BODY FLUID TOT PROTEIN PLEURAL; SOURCE, BODY FLUID TRIG PLEURAL; TOTAL PROTEIN, BODY FLUID 1.6 G/DL (NOT ESTABLISHED); TRIGLYCERIDE, BODY FLUID 11 MG/DL (NOT ESTABLISHED)
[2021-02-09] MEDS: MIRTAZAPINE 15 MG TAB PO PRN (14:16)
--- NOTE | 2021-02-09 18:08 | REP ---
INDICATION: LARGE RIGHT EFFUSION. COMPARISON: None. TECHNIQUE: The procedure was performed under the direct supervision of Dr. Mace. The risks and benefits of the procedure were explained to the patient and informed consent was obtained. The right pleural effusion was localized using ultrasound guidance. The skin was prepped and draped in a sterile fashion. 6 mL of 1% lidocaine was used as a local anesthetic. An 8 [place] multi side hole catheter was inserted using trocar technique. 355 mL of yellow fluid was withdrawn and sent to the lab for analysis. Estimated blood loss: Less than mL The patient tolerated the procedure well and there were no immediate complications. FINDINGS: None IMPRESSION: Ultrasound-guided right thoracentesis. <Electronically signed by Juan Miguel > 02/09/21 1509 <Electronically signed by Chauncey Mace > 02/09/21 [id number]
[2021-02-09] MEDS: zolPIDEM TARTRATE 5 MG TAB PO SCH (20:17)
[2021-02-09] MEDS: OMEPRAZOLE 20 MG CAP PO SCH (20:18)
[2021-02-10 06:00] VITALS: BP 99/71
[2021-02-10] MEDS: MOXIFLOXACIN 400 MG TAB PO SCH (06:18)
[2021-02-10 06:45] LABS: HEMATOCRIT 36.9 % (36.0-47.0); HEMOGLOBIN 10.6 g/dl (12.0-15.5); MEAN CORPUSCULAR HEMOGLOBIN 23.2 pg (27.0-33.0); MEAN CORPUSCULAR HGB CONC 28.7 g/dl (32.0-36.5); MEAN CORPUSCULAR VOLUME 80.7 fl (80.0-96.0); PLATELET COUNT, AUTOMATED 163 10^3/uL (150-450); RED BLOOD COUNT 4.57 10^6/uL (4.00-5.40)
[2021-02-10 06:59] LABS: CALCIUM LEVEL 7.7 MG/DL (8.8-10.2); CREATININE FOR GFR 1.17 MG/DL (0.55-1.30); GLOMERULAR FILTRATION RATE 49.3 (>45); MAGNESIUM LEVEL 1.7 MG/DL (1.8-2.4); POTASSIUM SERUM 4.5 MEQ/L (3.5-5.1)
[2021-02-10] MEDS: TIOTROPIUM INHALER/CAPSULE (SPIRIVA) INH SCH (07:50)
[2021-02-10] MEDS: COMBIVENT RESPIMAT 100-20MCG INHALER 4GM INH SCH ×4 (07:51→20:25)
[2021-02-10] MEDS: DOCUSATE SODIUM 100MG CAPSULE PO SCH ×2 (07:53→21:09)
[2021-02-10] MEDS: MIDODRINE 5 MG TAB PO SCH ×3 (07:54→16:27)
[2021-02-10] MEDS: HumaLOG INSULIN (NovoLOG) PER UNIT SC SCH ×4 (07:57→21:00)
[2021-02-10] MEDS: POTASSIUM CHLORIDE 10MEQ SR TABLET PO SCH ×2 (08:02→21:10)
[2021-02-10] MEDS: ENOXAPARIN 30MG/0.3ML SYRINGE (J1650 PER 10MG) SC SCH (08:03)
[2021-02-10 08:07] VITALS: O2SAT 88
[2021-02-10] MEDS ORDERED: MAGNESIUM OXIDE 400MG TAB (MAG-OX) PO ONE (08:10)
[2021-02-10 08:29] VITALS: BP 123/72
--- NOTE | 2021-02-10 10:57 | CR.PDOC ---
General Date of Consultation: Feb 10, 2021 Consultation REASON FOR PULMONOLOGY CONSULTATION/CHIEF COMPLAINT: Shortness of breath HISTORY OF PRESENT ILLNESS: 65-year-old female who presented to the hospital with gradual and worsening shortness of breath over 1 to 2 weeks associated with lower extremity swelling. She denies any change in her diet or increase salt intake. She denied any change in her chronic cough. She denied any fever, chills, night sweats. She was initially admitted to the hospital for acute decompensated heart failure and she underwent diuresis with Lasix. She was also found to have a right-sided pleural effusion which was drained by interventional radiology. Approximately 300 cc was removed which turned out to be transudative on pleural fluid analysis. Patient was seen and examined today. She says that she feels much improved since admission. She is ambulating to the bathroom. She is on 3 L oxygen and her pulse ox is 91%. She is in no distress. 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 Cataract removal, tonsillectomy, tubal ligation, cardiac catheterization. FAMILY HISTORY: No significant cardiopulmonary disease history in parents siblings or children. SOCIAL HISTORY: She was an active smoker until about 1 week ago she had a heavy smoking history ALLERGIES: Please see below. HOME MEDICATIONS: Please see below. REVIEW OF SYSTEMS: CONSTITUTIONAL: Denies fever, chills, night sweats, weight loss EYES: No blurring of vision or redness. ENT: No sore throat. No epistaxis. No tinnitus. CARDIOVASCULAR: No chest pain. No palpitations. RESPIRATORY: See HPI GASTROINTESTINAL: No nausea, vomiting, or diarrhea. GENITOURINARY: No frequency, urgency, nocturia. No hematuria or dysuria. MUSCULOSKELETAL: No arthralgias or myalgias. INTEGUMENTARY: No rash or swelling NEUROLOGIC: No headache. No numbness or tingling of the extremities. No weakness. PSYCHIATRIC: No confusion or mood changes. ENDOCRINE: No fatigue, no goiter. HEMATOLOGICAL: No bleeding. No petechiae. No bruising. PHYSICAL EXAMINATION: VITAL SIGNS: Please see below. GENERAL APPEARANCE: Alert and awake. HEENT: no thyromegaly, trachea midline, PERRLA. normal mucous membranes RESPIRATORY: Reduced breath sounds, no wheeze. CARDIOVASCULAR: +s1 s2, no murmurs. ABDOMEN: nontender, not distended, +BS EXTREMITIES: no edema or erythema. palpable distal pulses SKIN: no rash, no purpura NEUROLOGICAL: no sensory or motor deficits, orientedx3. LABS/IMAGING: No imaging from today. CT chest from 02/07/2021 is reviewed. ABG 09/21/2020 7.34/59/59 ASSESSMENT: 1. Acute decompensated heart failure with preserved EF improved with diuresis. 2. Right-sided pleural effusion status post thoracentesis, transudate on pleu ral fluid analysis 3. 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 History of left lower lobe pulmonary nodule, enlarging, pending outpatient bronchoscopy PLAN: * Continue diuresis as tolerated, I<O * Continue with bronchodilators [id number], patient should be on ICS/LABA/LAMA * Continuous oxygen therapy to maintain SPO2 89 to 92% * Outpatient pulmonary follow-up in 1 to 2 weeks. * Once patient is optimized from cardiac standpoint will reassess for bronchoscopy with tissue sampling of the left lower lobe pulmonary nodule Thank you for the courtesy of this consult. Please text me on Vocera for any questions or concerns. Brad Fitch MD Pulmonary/Critical Care Vital Signs/I&O Vital Signs Date Time Temp Pulse Resp B/P (MAP) Pulse Ox O2 Delivery O2 Flow Rate FiO2 02/10/21 09:00 3.0 02/10/21 08:29 97.9 66 24 123/72 (89) 88 Nasal Cannula I&O- Last 24 Hours up to 6 AM 02/10/21 06:00 Intake Total 1775 ml Output Total 1000 ml Balance 775 ml Laboratory Data Labs 24H Laboratory Tests 2 02/09/21 11:46: Bedside Glucose (Misc Panel) 110 02/09/21 17:53: Bedside Glucose (Misc Panel) 148H 02/09/21 20:10: Bedside Glucose (Misc Panel) 186H 02/10/21 06:22: Nucleated Red Blood Cells % (auto) 0.0, Anion Gap 2L, Glomerular Filtration Rate 49.3, Calcium Level 7.7L, Magnesium Level 1.7L CBC/BMP Laboratory Tests 02/10/21 06:22 Microbiology Microbiology 02/09/21 Acid Fast Stain, Received Pending 02/09/21 Mycobacterial Culture, Received Pending 02/09/21 Fungal Smear, Received Pending 02/09/21 Fungal Culture, Received Pending 02/09/21 Gram Stain - Final, Resulted 02/09/21 Anaerobic Culture, Resulted Pending 02/09/21 Body Fluid Culture, Received Pending 02/06/21 Blood Culture - Preliminary, Resulted No Growth after 72 hours. All specime... 02/06/21 Respiratory Virus Panel (PCR) ([facility]) - Final, Complete 02/06/21 Blood Culture - Preliminary, Resulted No Growth after 72 hours. All specime... Allergies Coded Allergies: prednisone (Verified Allergy, Severe, JOINT PAIN, DIFFICULTY BREATHING, 02/02/21) Penicillins (Verified Allergy, Intermediate, HIVES, VOMIT, 02/02/21) Sulfa (Sulfonamide Antibiotics) (Verified Allergy, Intermediate, HIVES, VOMIT, 02/02/21) Home Medications Scheduled Esomeprazole Magnesium (Esomeprazole Magnesium) 40 Mg Cap, 40 MG PO QPM, (Reported) Metformin HCl (Metformin HCl) 1,000 Mg Tablet, 1,000 MG PO DAILY, (Reported) Mirtazapine (Remeron) 30 Mg Tablet, 30 MG PO BID, (Reported) Pravastatin Sodium (Pravastatin Sodium) 20 Mg Tablet, 20 MG PO QPM, (Reported) Tiotropium Br/Olodaterol HCl (Stiolto Respimat Inhal [place]) 1 Aer Aer, 2 PUFFS INH DAILY, (Reported) Zolpidem Tartrate (Ambien) 10 Mg Tablet, 10 MG PO QHS, (Reported) Scheduled PRN Acetaminophen (Acetaminophen 8 Hour) 650 Mg Tablet.er, 650 MG PO DAILY PRN for PAIN, (Reported) Budesonide (Budesonide) 0.5 Mg/2 Ml Ampul.neb, 0.5 MG PO BID PRN for SOB/WHEEZING, (Reported) Ipratropium/Albuterol Sulfate (Combivent Respimat 20-100 Mcg) 1 Aer Aer, 1 PUFF INH QID PRN for SHORTNESS OF BREATH, (Reported) BRAD FITCH MD Feb 10, 2021 10:57
[2021-02-10] MEDS: FUROSEMIDE 40MG/4ML VIAL (J1940) IV SCH ×2 (12:17→17:27)
[2021-02-10] MEDS: MIRTAZAPINE 15 MG TAB PO PRN (13:20)
[2021-02-10 14:00] VITALS: BP 127/71
[2021-02-10 14:26] VITALS: BP 127/71
--- NOTE | 2021-02-10 20:44 | IPNPDOC ---
Date Seen The patient was seen on 02/10/21. Progress Note SUBJECTIVE: Thoracentesis done 02/09/21, likely transudative per fluid studies and pulmonary who consulted on patient. SOB; however, improved per patient. Very weak, ordered PT/OT: 1-2 more sessions. Denies chest pain, fevers, chill, n/v/d. OBJECTIVE: Physical exam VITAL SIGNS: See below GENERAL: NAD, resting in bed HEENT: Mucous membranes moist. No pallor icterus jaundice no use of respiratory accessory muscles NECK: Mild JVD, no thyromegaly or cervical lymphadenopathy. LUNGS: Diminished fine crepitations bilateral bases HEART: S1, S2, sinus rhythm. Left lower sternal border systolic ejection murmur ABDOMEN: Soft, nontender, non-distended, positive bowel sounds. EXTREMITIES: No cyanosis, clubbing. Positive lower extremity edema. Laboratory data, imaging studies, microbiology have been reviewed. ASSESSMENT/PLAN: This is a 65-year-old female with history of congestive heart failure, diastolic dysfunction, laryngeal epiglottic squamous cell CA, dyslipidemia, COPD - oxygen dependent 2-3 liters chronically, pulmonary nodules, reflux, type 2 diabetes admitted for acute on chronic HFpEF with exacerbation. Acute on chronic HFpEF with exacerbation with right side pleural effusion -S/p thoracentesis by IR for right-sided pleural effusion. Approximately 300 cc was removed which turned out to be transudative on pleural fluid analysis -Restarted lasix today -C/w 2 gm sodium diet, strict I's and O's, daily weight, telemetry -Echocardiogram reviewed. Patient was changed to IV Lasix due -Supplemental oxygen to keep saturations 88 to 92% (home amount is 2-3 L NC) Spiculated mass on the left lung -Will need o/p bronchoscopy after d/c, follows with Dr. Galvez who was updated on her admission here -See pulmonary consult note -To follow up in office after d/c Chronic hypoxic respiratory failure 2/2 to COPD -Currently on home amount of O2 ATC, 2-3 liters -Keep sat 89 to 92%. -Not in acute exacerbation. Bronchodilators as needed. Community-acquired pneumonia. -7 days of Avelox due to Penicillin allergy. -Nebulizer treatment and supplemental oxygen to keep saturations above 88% Chronic kidney disease, stage 3. -Cr wnl -Monitor I's and O's, daily weight and avoid nephrotoxic meds History of squamous cell CA of the larynx and esophagus, chronic -F/u o/p DVT px - lovenox DISPOSITION: PT recommends at least 12 more sessions and then likely home with services. VS, I&O, 24H, Fishbone Vital Signs/I&O Vital Signs Date Time Temp Pulse Resp B/P (MAP) Pulse Ox O2 Delivery O2 Flow Rate FiO2 02/10/21 14:26 97.5 68 20 127/71 (89) 94 Nasal Cannula 3.0 I&O- Last 24 Hours up to 6 AM 02/10/21 05:59 Intake Total 1775 ml Output Total 1000 ml Balance 775 ml Laboratory Data 24H LABS Laboratory Tests 2 02/10/21 06:22: Nucleated Red Blood Cells % (auto) 0.0, Anion Gap 2L, Glomerular Filtration Rate 49.3, Calcium Level 7.7L, Magnesium Level 1.7L 02/10/21 11:51: Bedside Glucose (Misc Panel) 164H 02/10/21 16:23: Bedside Glucose (Misc Panel) 160H CBC/BMP Laboratory Tests 02/10/21 06:22 Microbiology Microbiology 02/09/21 Acid Fast Stain, Received Pending 02/09/21 Mycobacterial Culture, Received Pending 02/09/21 Fungal Smear, Received Pending 02/09/21 Fungal Culture, Received Pending 02/09/21 Gram Stain - Final, Resulted 02/09/21 Anaerobic Culture, Resulted Pending 02/09/21 Body Fluid Culture, Received Pending 02/06/21 Blood Culture - Preliminary, Resulted No Growth after 72 hours. All specime... 02/06/21 Respiratory Virus Panel (PCR) ([facility]) - Final, Complete 02/06/21 Blood Culture - Preliminary, Resulted No Growth after 72 hours. All specime... Nisha Valdivia MD Feb 10, 2021 20:44
[2021-02-10] MEDS: OMEPRAZOLE 20 MG CAP PO SCH (21:09)
[2021-02-10] MEDS: zolPIDEM TARTRATE 5 MG TAB PO SCH (21:09)
[2021-02-10 22:00] VITALS: BP 125/70
[2021-02-11 01:56] VITALS: O2SAT 93
[2021-02-11 06:00] VITALS: BP 122/70
[2021-02-11 06:31] LABS: HEMATOCRIT 36.2 % (36.0-47.0); HEMOGLOBIN 10.2 g/dl (12.0-15.5); MEAN CORPUSCULAR HGB CONC 28.2 g/dl (32.0-36.5); MEAN CORPUSCULAR VOLUME 81.7 fl (80.0-96.0); PLATELET COUNT, AUTOMATED 166 10^3/uL (150-450); RED BLOOD COUNT 4.43 10^6/uL (4.00-5.40); WHITE BLOOD COUNT 4.9 10^3/uL (4.0-10.0)
[2021-02-11] MEDS: MOXIFLOXACIN 400 MG TAB PO SCH (06:49)
[2021-02-11 07:10] LABS: BLOOD UREA NITROGEN 29 MG/DL (7-18); CALCIUM LEVEL 7.8 MG/DL (8.8-10.2); CARBON DIOXIDE LEVEL 49 MEQ/L (21-32); CHLORIDE LEVEL 95 MEQ/L (98-107); CREATININE FOR GFR 1.18 MG/DL (0.55-1.30); GLOMERULAR FILTRATION RATE 48.8 (>45); GLUCOSE, FASTING 114 MG/DL (70-100); MAGNESIUM LEVEL 2.1 MG/DL (1.8-2.4); POTASSIUM SERUM 4.3 MEQ/L (3.5-5.1); SODIUM LEVEL 140 MEQ/L (136-145)
[2021-02-11] MEDS: HumaLOG INSULIN (NovoLOG) PER UNIT SC SCH ×3 (07:30→13:10)
[2021-02-11 07:40] VITALS: BP 122/72
[2021-02-11] MEDS: TIOTROPIUM INHALER/CAPSULE (SPIRIVA) INH SCH (08:19)
[2021-02-11] MEDS: COMBIVENT RESPIMAT 100-20MCG INHALER 4GM INH SCH ×2 (08:20→11:45)
[2021-02-11] MEDS ORDERED: FUROSEMIDE 40MG/4ML VIAL (J1940) IV SCH (09:00)
[2021-02-11] MEDS: MIRTAZAPINE 15 MG TAB PO PRN (10:12)
[2021-02-11] MEDS: DOCUSATE SODIUM 100MG CAPSULE PO SCH (10:13)
[2021-02-11] MEDS: POTASSIUM CHLORIDE 10MEQ SR TABLET PO SCH (10:13)
[2021-02-11] MEDS: ENOXAPARIN 30MG/0.3ML SYRINGE (J1650 PER 10MG) SC SCH (10:14)
[2021-02-11] MEDS: MIDODRINE 5 MG TAB PO SCH ×2 (10:14→13:10)
[2021-02-11 11:22] VITALS: O2SAT 92
[2021-02-11] MEDS ORDERED: LASI20TA3 PO (12:15)
[2021-02-11] MEDS ORDERED: MOXI400T11 PO (12:15)
--- NOTE | 2021-02-11 12:35 | DS.PDOC ---
Discharge Summary General Date of Admission Feb 06, 2021 at 20:09 Date of Discharge 02/11/21 Discharge Summary ADMISSION DIAGNOSES: 1. Acute CHF with exacerbation 2. Chronic respiratory failure 2/2 to COPD, on home O2 3. Hyperkalemia 4. Elevated creatinine 5. DM2 6. GERD DISCHARGE DIAGNOSES: 1. Acute on chronic HFpEF with exacerbation with right side pleural effusion s/p thoracentesis by IR 2. Spiculated mass on the left lung 3. Chronic hypoxic respiratory failure 2/2 to COPD 4. Community-acquired pneumonia 5. Chronic kidney disease, stage 3 6. History of squamous cell CA of the larynx and esophagus, chronic HOSPITAL COURSE: This is a 65 y/o female with a PMH of scc of larynx and epiglottis, HFpEF, hld, copd on 2L o2 nasal canula chronically, pulmonary nodules, gerd, dm2 who presented to ED with a cc of b/l lower extremity edema that she first noticed about 5 days ago. Patient tells me that she has never had this issue before. Patient tells me that she is mildly sob but that this is her baseline. Patient does note that her sob has been a little worse on exertion as of late. Patient admits to chronic cough, at baseline. Patient tells me that she has been experiencing transient discomfort of her legs b/l that she describes as a "full" feeling. Patient also admits to some abdominal bloating. Patient, at the time of my exam, denies and fevers, chills, chest pain, wheezing, abd pain, n/v/d/c, dysuria, oliguria, syncope, paresthesias, recent falls. She was admitted for acute on chronic CHF with exacerbation, community acquired PNA. During her hospitalization, patient had right side pleural effusion drained by IR. Studies showed transudative cause, likely CHF. Pulmonary was consulted and suggested continued diuresis, close follow up as o/p with their clinic. She was treated with abx and later transitioned to PO fluoroquinolone. She was evaluated by PT and found to be at her baseline on baseline O2 around the clock on 02/11/21. She was discharged home in improved condition. PROCEDURES: Right lung thoracentesis DISCHARGE MEDICATIONS: Please see below. PHYSICAL EXAMINATION: VS: Please see below CONSTITUTIONAL: No acute distress, resting comfortably, AAO x 3 EYES: PERRLA, EOM intact HENT, MOUTH: Normocephalic, atraumatic, moist mucous membranes, NC in place NECK: SUPPLE, no JVD, no lymphadenopathy, no carotid bruit CV: Regular rate and rhythm, S1S2 normal, no murmurs/rubs/gallops RESPIRATORY: Clear to auscultation bilaterally, no rales/rhonchi/wheezes. Area of right chest where right lung thoracentesis done, appears well healing GI: BS positive in 4 quadrants, soft, nontender, nondistended, no rebound or guarding, no organomegaly : Deferred MUSCULOSKELETAL: Normal ROM. No cyanosis, clubbing, swelling, joint deformity, extremity edema INTEGUMENTARY: Intact, no rashes, no lesions, no erythema NEUROLOGIC: Cranial Nerves II-XII are intact, no focal deficits PSYCHIATRIC: Mood and affect are normal IMAGING: See chart PROGNOSIS: Good ACTIVITY: As tolerated with home O2 with activity, ATC DIET: 2 gm sodium DISPOSITION: Discharged home today in improved condition. DISCHARGE INSTRUCTIONS: 1. Follow up with Dr. Galvez, pulmonary as o/p within 1-2 weeks after discharge 2. Follow up with PCP after discharge. Please update your provider on medication changes. 3. If increased SOB, chest pain then let a medical professional know imme diately. ITEMS TO FOLLOWUP ON ON OUTPATIENT: 1. Pleural fluid fungal studies to be followed up as o/p DISCHARGE CONDITION: Stable TIME SPENT ON DISCHARGE: 35 minutes. Vital Signs/I&Os Vital Signs Date Time Temp Pulse Resp B/P (MAP) Pulse Ox O2 Delivery O2 Flow Rate FiO2 02/11/21 11:22 92 Nasal Cannula 3.0 02/11/21 07:40 97.9 82 18 122/72 (89) I&O- Last 24 Hours up to 6 AM 02/11/21 06:00 Intake Total 240 ml Output Total 1830 ml Balance -1590 ml Laboratory Data Labs 24H Laboratory Tests 2 02/10/21 16:23: Bedside Glucose (Misc Panel) 160H 02/10/21 21:03: Bedside Glucose (Misc Panel) 185H 02/11/21 05:26: Nucleated Red Blood Cells % (auto) 0.0, Anion Gap , Glomerular Filtration Rate 48.8, Calcium Level 7.8L, Magnesium Level 2.1 02/11/21 11:31: Bedside Glucose (Misc Panel) 134H CBC/BMP Laboratory Tests 02/11/21 05:26 FSBS Laboratory Tests Test 02/10/21 16:23 02/10/21 21:03 02/11/21 11:31 Range/Units Bedside Glucose ([facility]) 160 185 134 80-115 MG/DL Microbiology Microbiology 02/09/21 Acid Fast Stain, Received Pending 02/09/21 Mycobacterial Culture, Received Pending 02/09/21 Fungal Smear, Received Pending 02/09/21 Fungal Culture, Received Pending 02/09/21 Gram Stain - Final, Complete 02/09/21 Anaerobic Culture - Final, Complete 02/09/21 Body Fluid Culture - Final, Complete 02/06/21 Blood Culture - Preliminary, Resulted No Growth after 72 hours. All specime... 02/06/21 Respiratory Virus Panel (PCR) ([facility]) - Final, Complete 02/06/21 Blood Culture - Preliminary, Resulted No Growth after 72 hours. All specime... Discharge Medications Scheduled Esomeprazole Magnesium (Esomeprazole Magnesium) 40 Mg Cap, 40 MG PO QPM, (Reported) Furosemide (Lasix) 20 Mg Tablet, 20 MG PO DAILY Metformin HCl (Metformin HCl) 1,000 Mg Tablet, 1,000 MG PO DAILY, (Reported) Mirtazapine (Remeron) 30 Mg Tablet, 30 MG PO BID, (Reported) Moxifloxacin HCl (Moxifloxacin HCl) 400 Mg Tablet, 400 MG PO DAILY@06 Pravastatin Sodium (Pravastatin Sodium) 20 Mg Tablet, 20 MG PO QPM, (Reported) Tiotropium Br/Olodaterol HCl (Stiolto Respimat Inhal [place]) 1 Aer Aer, 2 PUFFS INH DAILY, (Reported) Zolpidem Tartrate (Ambien) 10 Mg Tablet, 10 MG PO QHS, (Reported) Scheduled PRN Acetaminophen (Acetaminophen 8 Hour) 650 Mg Tablet.er, 650 MG PO DAILY PRN for PAIN, (Reported) Budesonide (Budesonide) 0.5 Mg/2 Ml Ampul.neb, 0.5 MG PO BID PRN for SOB/WHEEZING, (Reported) Ipratropium/Albuterol Sulfate (Combivent Respimat 20-100 Mcg) 1 Aer Aer, 1 PUFF INH QID PRN for SHORTNESS OF BREATH, (Reported) Allergies Coded Allergies: prednisone (Verified Allergy, Severe, JOINT PAIN, DIFFICULTY BREATHING, 02/02/21) Penicillins (Verified Allergy, Intermediate, HIVES, VOMIT, 02/02/21) Sulfa (Sulfonamide Antibiotics) (Verified Allergy, Intermediate, HIVES, VOMIT, 02/02/21) Nisha Valdivia MD Feb 11, 2021 12:35
== END 2021-02-11 13:22 | disposition home or self-care (01) | DRG 291 ==
LOC: M ED 16:45 → M ED INP 20:09 → M MSPAV 22:10
PROVIDERS: ADMIT Internal Medicine; ATTEND Internal Medicine
PROC: 0B9K3ZX Drainage of Right Lung, Percutaneous Approach, Diagnostic (ICD-10-PCS; principal; 2021-02-09 15:00)
DX: I13.0 Hypertensive heart and chronic kidney disease with heart failure and stage 1 through stage 4 chronic kidney disease, or unspecified chronic kidney disease (principal); I50.33 Acute on chronic diastolic (congestive) heart failure; J18.9 Pneumonia, unspecified organism; J96.12 Chronic respiratory failure with hypercapnia; J90 Pleural effusion, not elsewhere classified; C15.9 Malignant neoplasm of esophagus, unspecified; J44.9 Chronic obstructive pulmonary disease, unspecified; Z99.81 Dependence on supplemental oxygen; E87.5 Hyperkalemia; E11.22 Type 2 diabetes mellitus with diabetic chronic kidney disease; K21.9 Gastro-esophageal reflux disease without esophagitis; E78.5 Hyperlipidemia, unspecified; R91.8 Other nonspecific abnormal finding of lung field; C32.9 Malignant neoplasm of larynx, unspecified; Z90.49 Acquired absence of other specified parts of digestive tract; Z98.41 Cataract extraction status, right eye; Z98.42 Cataract extraction status, left eye; Z87.891 Personal history of nicotine dependence; Z79.84 Long term (current) use of oral hypoglycemic drugs; Z79.899 Other long term (current) drug therapy; Z88.0 Allergy status to penicillin; Z88.2 Allergy status to sulfonamides; Z88.8 Allergy status to other drugs, medicaments and biological substances; N18.30 Chronic kidney disease, stage 3 unspecified; Z20.822 Contact with and (suspected) exposure to COVID-19

== ENCOUNTER → 2021-02-25 | Outpatient (CLI) | payer MEDICARE ==
[~2021-02-25] MED LIST changes: +LASI20TA3 PO; +MOXI400T11 PO
--- NOTE | 2021-02-25 15:31 | REP ---
INDICATION: FOOT PAIN COMPARISON: None. TECHNIQUE: AP and lateral left foot FINDINGS: Acute fractures involving the distal aspects of the 2nd, 3rd, and 4th metatarsal bones noted. Underlying osteopenia, degenerative changes, and old healed 5th metatarsal bone fracture noted. IMPRESSION: Acute fractures involving the distal aspects of the 2-4th metatarsal bones. <Electronically signed by Jamin Guaman > 02/25/21 [id number]
== END ==
LOC: M RAD 14:48
PROVIDERS: ATTEND Nurse Practitioner Family
DX: S92.322A Displaced fracture of second metatarsal bone, left foot, initial encounter for closed fracture (principal); S92.332A Displaced fracture of third metatarsal bone, left foot, initial encounter for closed fracture; S92.342A Displaced fracture of fourth metatarsal bone, left foot, initial encounter for closed fracture; W10.9XXA Fall (on) (from) unspecified stairs and steps, initial encounter; Y92.9 Unspecified place or not applicable; Y93.9 Activity, unspecified; Y99.9 Unspecified external cause status

== ENCOUNTER → 2021-03-27 | Outpatient (CLI) | payer MEDICARE ==
[~2021-03-27] MED LIST changes: +IRON27TA2 PO; -LEVO250T12 PO; +LEVO250T3 PO; -LEVO500T3 PO; +LEVO500T4 PO; -PROC10TA4 PO; +PROC10TA5 PO
== END ==
LOC: M RAD 12:31
PROVIDERS: ATTEND Internal Medicine Pulmonary Disease
DX: J43.2 Centrilobular emphysema (principal); J90 Pleural effusion, not elsewhere classified; R91.8 Other nonspecific abnormal finding of lung field; R59.0 Localized enlarged lymph nodes

== ENCOUNTER → 2021-04-27 | Outpatient (CLI) | payer MEDICARE ==
[~2021-04-27] MED LIST changes: -IRON27TA2 PO
== END ==
LOC: M PLARAD 11:14
PROVIDERS: ATTEND Internal Medicine Pulmonary Disease
DX: R91.8 Other nonspecific abnormal finding of lung field (principal); Z85.21 Personal history of malignant neoplasm of larynx; Z87.891 Personal history of nicotine dependence; J33.8 Other polyp of sinus; J43.2 Centrilobular emphysema; I70.0 Atherosclerosis of aorta; I25.10 Atherosclerotic heart disease of native coronary artery without angina pectoris; Z95.828 Presence of other vascular implants and grafts; D35.01 Benign neoplasm of right adrenal gland
CPT/HCPCS: 78815; A9552

== ENCOUNTER → 2021-05-15 | Outpatient (CLI) | payer MEDICARE ==
[~2021-05-15] MED LIST changes: +IRON27TA2 PO
[2021-05-15 15:12] LABS: PLATELET COUNT, AUTOMATED 186 10^3/uL (150-450)
[2021-05-15 15:23] LABS: INR 0.89; PROTHROMBIN TIME 12.4 SECONDS (12.7-14.5)
[2021-05-15 15:24] LABS: PARTIAL THROMBOPLASTIN TIME 35.9 SECONDS (25.9-37.0)
== END ==
LOC: M PLALAB 13:27
PROVIDERS: ATTEND Internal Medicine Pulmonary Disease
DX: Z01.812 Encounter for preprocedural laboratory examination (principal); J43.2 Centrilobular emphysema; R91.8 Other nonspecific abnormal finding of lung field

== ENCOUNTER → 2021-05-15 | Outpatient (CLI) | payer MEDICARE | LOC: M LABSMTC 13:14 | PROVIDERS: ATTEND Anesthesiology | DX: Z01.812 Encounter for preprocedural laboratory examination (principal); Z20.822 Contact with and (suspected) exposure to COVID-19 ==

== ENCOUNTER 2021-05-20 06:19 | Day surgery (SDC) | payer MEDICARE ==
[~2021-05-20] VITALS: Ht 167.6 cm; Wt 65.8 kg
[~2021-05-20 06:19] MED LIST changes: +LIDOCAINE 1% MDV 20ML VIAL SQ PRN; +LR 1,000 ML IV ONE
[2021-05-20] MEDS ORDERED: CETACAINE SPRAY 5GM As Ordered ONE (07:09)
[2021-05-20] MEDS ORDERED: THROMBIN SOLN 5,000 UNITS VIAL As Ordered ONE (07:09)
[2021-05-20] MEDS ORDERED: EPINEPHrine 1MG/10ML SYRINGE 1.5IN As Ordered ONE (07:10)
[2021-05-20] MEDS ORDERED: LIDOCAINE 1% SDV 30ML VIAL As Ordered ONE (07:10)
[2021-05-20] MEDS ORDERED: LIDOCAINE 2% 100MG/5ML SDV (FOR ANES.) As Ordered ONE (07:20)
[2021-05-20] MEDS ORDERED: propofoL 200 MG/20 ML VIAL As Ordered ONE (07:20)
[2021-05-20] MEDS ORDERED: MIDAZOLAM INJ 2MG/2ML VIAL (J2250 PER 1MG) As Ordered ONE (07:20)
[2021-05-20] MEDS ORDERED: fentaNYL 100 MCG/2 ML INJECTION As Ordered ONE (07:20)
[2021-05-20] MEDS ORDERED: ROCURONIUM BROMIDE 50 MG/5 ML VIAL As Ordered ONE (07:20)
[2021-05-20] MEDS ORDERED: LIDOCAINE 4% INJ 5ML AMP As Ordered ONE (07:22)
[2021-05-20] MEDS ORDERED: LIDOCAINE 4% INJ 5ML AMP NEB ONE (07:35)
[2021-05-20] MEDS ORDERED: ALBUTEROL SULFATE 2.5 MG/0.5 ML INH NEB SOLN NEB ONE (07:35)
[2021-05-20] MEDS ORDERED: LIDOCAINE VISCOUS 2% SOLN 15ML UDC As Ordered ONE (07:48)
[2021-05-20] MEDS ORDERED: ONDANSETRON 4MG/2ML VIAL As Ordered ONE (08:03)
[2021-05-20] MEDS ORDERED: PHENYLephrine 500MCG 5ML (100MCG/ML) SYRINGE As Ordered ONE ×3 (08:03→08:53)
[2021-05-20] MEDS ORDERED: dexameTHASONE 4 MG/ML 1ML VIAL (J1100 PER 1MG) As Ordered ONE (08:04)
[2021-05-20] MEDS ORDERED: ePHEDrine SULFATE 25 MG/5 ML(5MG/ML) SYRINGE As Ordered ONE (08:18)
[2021-05-20] MEDS ORDERED: SUGAMMADEX SODIUM 500 MG/5 ML VIAL (BRIDION) As Ordered ONE (08:25)
[2021-05-20] MEDS ORDERED: ONDANSETRON 4MG/2ML VIAL IV PRN (09:55)
[2021-05-20] MEDS ORDERED: METOCLOPRAMIDE INJ 10MG/2ML VIAL (J2765 PER 1) IV PRN (09:55)
[2021-05-20] MEDS ORDERED: fentaNYL 100 MCG/2 ML INJECTION IV PRN (09:55)
[2021-05-20] MEDS ORDERED: LR 1,000 ML IV SCH (09:55)
[2021-05-20] MEDS ORDERED: ACETAMINOPHEN TAB 650MG DOSE (2X325MG) PO ONE (10:05)
[2021-05-20 10:37] VITALS: BP 142/69
== END 2021-05-20 10:54 | disposition home or self-care (01) ==
LOC: M SDC 06:19
PROVIDERS: ATTEND Internal Medicine Pulmonary Disease
DX: R91.8 Other nonspecific abnormal finding of lung field (principal); J43.2 Centrilobular emphysema; J96.11 Chronic respiratory failure with hypoxia; I25.10 Atherosclerotic heart disease of native coronary artery without angina pectoris; E78.5 Hyperlipidemia, unspecified; R60.0 Localized edema; E11.9 Type 2 diabetes mellitus without complications; F41.9 Anxiety disorder, unspecified; K21.9 Gastro-esophageal reflux disease without esophagitis; I89.0 Lymphedema, not elsewhere classified; Z79.84 Long term (current) use of oral hypoglycemic drugs; Z79.899 Other long term (current) drug therapy; Z85.20 Personal history of malignant neoplasm of unspecified respiratory organ; Z86.2 Personal history of diseases of the blood and blood-forming organs and certain disorders involving the immune mechanism; Z87.891 Personal history of nicotine dependence; Z88.0 Allergy status to penicillin; Z88.2 Allergy status to sulfonamides; Z88.8 Allergy status to other drugs, medicaments and biological substances; Z92.21 Personal history of antineoplastic chemotherapy; Z92.3 Personal history of irradiation; Z96.1 Presence of intraocular lens; Z98.41 Cataract extraction status, right eye; Z98.42 Cataract extraction status, left eye; Z98.61 Coronary angioplasty status; Z99.81 Dependence on supplemental oxygen
CPT/HCPCS: 31623; 31624; 31627; 31654; 71045; 87070; 87071; 87102; 87116; 87186; 87205; 87206; 88104; 88108; 88173; 88305; 88313; J0171; J1100; J2250; J2370; J2405; J3010

== ENCOUNTER → 2021-06-05 | Outpatient (CLI) | payer MEDICARE ==
[~2021-06-05] MED LIST changes: -LIDOCAINE 1% MDV 20ML VIAL SQ PRN; +LISI5TAB11 PO; -LR 1,000 ML IV ONE; +METO1TAB32 PO; +SPIR-10 PO
== END ==
LOC: M ONCR 12:27
PROVIDERS: ATTEND Radiology Radiation Oncology
DX: C34.12 Malignant neoplasm of upper lobe, left bronchus or lung (principal); I50.9 Heart failure, unspecified; J44.9 Chronic obstructive pulmonary disease, unspecified; Z79.899 Other long term (current) drug therapy; Z85.21 Personal history of malignant neoplasm of larynx; Z87.891 Personal history of nicotine dependence; Z88.0 Allergy status to penicillin; Z88.2 Allergy status to sulfonamides; Z88.8 Allergy status to other drugs, medicaments and biological substances; Z99.81 Dependence on supplemental oxygen

== ENCOUNTER → 2021-06-16 | Outpatient (CLI) | payer MEDICARE ==
[~2021-06-16] MED LIST changes: -LISI5TAB11 PO; -METO1TAB32 PO; -SPIR-10 PO
[2021-06-16 16:04] LABS: FREE T4 1.15 NG/DL (0.76-1.46); THYROID STIMULATING HORMONE 1.39 uIU/ML (0.358-3.740)
== END ==
LOC: M PLALAB 12:51
PROVIDERS: ATTEND Nurse Practitioner Family
DX: E05.80 Other thyrotoxicosis without thyrotoxic crisis or storm (principal)

== ENCOUNTER → 2021-06-16 | Outpatient (CLI) | payer MEDICARE ==
[2021-06-16 15:27] LABS: BASO % 0.4 % (0.0-1.0); EOS # 0.2 10^3/uL (0.0-0.5); EOS % 2.3 % (0.0-3.0); HEMATOCRIT 40.6 % (36.0-47.0); HEMOGLOBIN 12.1 g/dl (12.0-15.5); LYMPH # 2.2 10^3/uL (1.5-5.0); MEAN CORPUSCULAR HEMOGLOBIN 23.7 pg (27.0-33.0); MEAN CORPUSCULAR HGB CONC 29.8 g/dl (32.0-36.5); MEAN CORPUSCULAR VOLUME 79.5 fl (80.0-96.0); MONO # 0.7 10^3/uL (0.0-0.8); MONO % 9.9 % (2.0-8.0); NEUTROPHILS # 4.3 10^3/uL (1.5-8.5); PLATELET COUNT, AUTOMATED 243 10^3/uL (150-450); RED BLOOD COUNT 5.11 10^6/uL (4.00-5.40); WHITE BLOOD COUNT 7.5 10^3/uL (4.0-10.0)
[2021-06-16 16:03] LABS: ALBUMIN 3.3 GM/DL (3.2-5.2); BILIRUBIN,TOTAL 0.3 MG/DL (0.2-1.0); CALCIUM LEVEL 8.5 MG/DL (8.8-10.2); CHOLESTEROL RISK RATIO 4.489 (<5); CREATININE FOR GFR 1.25 MG/DL (0.55-1.30); GLOMERULAR FILTRATION RATE 45.6 (>45); PERCENT SATURATION 14.4 % (13.2-45.0); POTASSIUM SERUM 4.8 MEQ/L (3.5-5.1); THYROID STIMULATING HORMONE 1.4 uIU/ML (0.358-3.740); TOTAL PROTEIN 6.9 GM/DL (6.4-8.2)
== END ==
LOC: M PLALAB 12:54
PROVIDERS: ATTEND Nurse Practitioner Family
DX: Z00.01 Encounter for general adult medical examination with abnormal findings (principal); E11.65 Type 2 diabetes mellitus with hyperglycemia; D50.9 Iron deficiency anemia, unspecified; C13.1 Malignant neoplasm of aryepiglottic fold, hypopharyngeal aspect; D35.01 Benign neoplasm of right adrenal gland; E06.4 Drug-induced thyroiditis; Z79.899 Other long term (current) drug therapy; E05.80 Other thyrotoxicosis without thyrotoxic crisis or storm

== ENCOUNTER 2021-07-03 11:54 | Outpatient (RCR) | payer MEDICARE ==
[2021-07-01 13:51] VITALS: BP 208/112
[~2021-07-03] VITALS: Ht 167.6 cm; Wt 69.4 kg
[~2021-07-03 11:54] MED LIST changes: +LABETALOL 100MG/20ML VIAL IV STA; +LABETALOL 200 MG TAB PO STA; +LISI5TAB11 PO; +METO1TAB32 PO; +SPIR-10 PO
[2021-07-06] MEDS ORDERED: MIRT-60 PO (18:57)
== END 2021-07-09 ==
LOC: M ONCR 11:54
PROVIDERS: ATTEND General Practice
DX: C34.12 Malignant neoplasm of upper lobe, left bronchus or lung (principal); C32.1 Malignant neoplasm of supraglottis

== ENCOUNTER 2021-07-06 10:49 | Emergency (ER) | payer MEDICARE ==
[~2021-07-06] VITALS: Ht 167.6 cm; Wt 69.5 kg
[~2021-07-06 10:49] MED LIST changes: -LABETALOL 100MG/20ML VIAL IV STA; -LABETALOL 200 MG TAB PO STA; +SODIUM CHLORIDE 0.9% INJ 10 ML SYR IV SCH
[2021-07-06 11:52] LABS: BASO % 0.5 % (0.0-1.0); EOS # 0.1 10^3/uL (0.0-0.5); EOS % 2.2 % (0.0-3.0); HEMATOCRIT 39.4 % (36.0-47.0); HEMOGLOBIN 12.1 g/dl (12.0-15.5); LYMPH # 0.5 10^3/uL (1.5-5.0); LYMPH % 7.8 % (24.0-44.0); MEAN CORPUSCULAR HEMOGLOBIN 24.7 pg (27.0-33.0); MEAN CORPUSCULAR HGB CONC 30.7 g/dl (32.0-36.5); MEAN CORPUSCULAR VOLUME 80.4 fl (80.0-96.0); MONO # 0.6 10^3/uL (0.0-0.8); MONO % 10.5 % (2.0-8.0); NEUTROPHILS # 4.7 10^3/uL (1.5-8.5); NEUTROPHILS % 78.7 % (36.0-66.0); PLATELET COUNT, AUTOMATED 271 10^3/uL (150-450)
[2021-07-06 12:03] LABS: INR 1.06; PROTHROMBIN TIME 14.2 SECONDS (12.7-14.5)
[2021-07-06 12:05] LABS: PARTIAL THROMBOPLASTIN TIME 99.9 SECONDS (25.9-37.0)
[2021-07-06 12:30] LABS: CK-MB VALUE MASS < 1.0 NG/ML (<3.6); CPK CREATINE PHOSPHOKINASE 26 U/L (26-192); MB/CK RELATIVE INDEX 3.85 (< OR =4)
[2021-07-06] MEDS ORDERED: MIRTAZAPINE 15 MG TAB PO ONE (13:15)
[2021-07-06 14:40] LABS: ALBUMIN 3.1 GM/DL (3.2-5.2); ALT/SGPT 7 U/L (12-78); BILIRUBIN,DIRECT < 0.1 MG/DL (0.0-0.2); BILIRUBIN,TOTAL 0.4 MG/DL (0.2-1.0); BLOOD UREA NITROGEN 26 MG/DL (7-18); CALCIUM LEVEL 8.6 MG/DL (8.8-10.2); CARBON DIOXIDE LEVEL 31 MEQ/L (21-32); CHLORIDE LEVEL 100 MEQ/L (98-107); FREE T4 1.67 NG/DL (0.76-1.46); GLOMERULAR FILTRATION RATE 47.8 (>45); GLUCOSE, FASTING 175 MG/DL (70-100); LIPASE 60 U/L (73-393); POTASSIUM SERUM 4.9 MEQ/L (3.5-5.1); SODIUM LEVEL 137 MEQ/L (136-145); THYROID STIMULATING HORMONE 0.796 uIU/ML (0.358-3.740); TOTAL PROTEIN 6.5 GM/DL (6.4-8.2)
[2021-07-06] MEDS ORDERED: NS 1,000 ML IV ONE (15:30)
[2021-07-06] MEDS ORDERED: METOPROLOL TART 25 MG TABLET PO ONE (17:10)
[2021-07-06] MEDS ORDERED: ISOVUE-370 76% 100ML VIAL As Ordered ONE (17:32)
[2021-07-06] MEDS ORDERED: MIRT-60 PO (18:57)
[2021-07-06 19:00] VITALS: BP 124/74
== END 2021-07-06 19:51 | disposition home or self-care (01) ==
LOC: M ED 10:49
DX: R00.2 Palpitations (principal); T43.205A Adverse effect of unspecified antidepressants, initial encounter; R91.8 Other nonspecific abnormal finding of lung field; E11.9 Type 2 diabetes mellitus without complications; I50.9 Heart failure, unspecified; Z87.891 Personal history of nicotine dependence; F12.10 Cannabis abuse, uncomplicated; Z79.84 Long term (current) use of oral hypoglycemic drugs; Z79.899 Other long term (current) drug therapy; Z88.0 Allergy status to penicillin; Z88.2 Allergy status to sulfonamides; Z88.8 Allergy status to other drugs, medicaments and biological substances; Z99.81 Dependence on supplemental oxygen
CPT/HCPCS: 71045; 71275; 80048; 80076; 82550; 82553; 83690; 84439; 84443; 84484; 85025; 85610; 85730; 93005; 93041; 94760; 96374; 96375; 99285; J1642; Q9967

== ENCOUNTER → 2021-07-21 | Outpatient (CLI) | payer MEDICARE ==
[~2021-07-21] MED LIST changes: -SODIUM CHLORIDE 0.9% INJ 10 ML SYR IV SCH
[2021-07-21 18:00] LABS: CALCIUM LEVEL 8.6 MG/DL (8.8-10.2); CREATININE FOR GFR 1.41 MG/DL (0.55-1.30); GLOMERULAR FILTRATION RATE 39.7 (>45); POTASSIUM SERUM 5.4 MEQ/L (3.5-5.1)
== END ==
LOC: M PLALAB 13:34
PROVIDERS: ATTEND Internal Medicine Cardiovascular Disease
DX: I11.0 Hypertensive heart disease with heart failure (principal); I50.9 Heart failure, unspecified

== ENCOUNTER → 2021-09-28 | Outpatient (CLI) | payer MEDICARE ==
[~2021-09-28] MED LIST changes: +ISOVUE-370 76% 100ML VIAL As Ordered ONE
[2021-09-28 18:35] LABS: ALBUMIN 3.2 GM/DL (3.2-5.2); BILIRUBIN,TOTAL 0.2 MG/DL (0.2-1.0); CALCIUM LEVEL 8.6 MG/DL (8.8-10.2); CREATININE FOR GFR 1.34 MG/DL (0.55-1.30); POTASSIUM SERUM 4.7 MEQ/L (3.5-5.1)
== END ==
LOC: M RAD 17:29
PROVIDERS: ATTEND General Practice
DX: C34.12 Malignant neoplasm of upper lobe, left bronchus or lung (principal); C32.1 Malignant neoplasm of supraglottis; J43.9 Emphysema, unspecified; I70.0 Atherosclerosis of aorta; I25.10 Atherosclerotic heart disease of native coronary artery without angina pectoris; M85.80 Other specified disorders of bone density and structure, unspecified site; Z95.828 Presence of other vascular implants and grafts
CPT/HCPCS: 36415; 71260; 80053; Q9967

== ENCOUNTER → 2021-09-30 | Outpatient (CLI) | payer MEDICARE ==
[~2021-09-30] MED LIST changes: -ISOVUE-370 76% 100ML VIAL As Ordered ONE
== END ==
LOC: M ONCR 14:32
PROVIDERS: ATTEND General Practice
DX: C34.12 Malignant neoplasm of upper lobe, left bronchus or lung (principal); R53.83 Other fatigue; R59.0 Localized enlarged lymph nodes; J43.9 Emphysema, unspecified; F17.210 Nicotine dependence, cigarettes, uncomplicated; Z79.51 Long term (current) use of inhaled steroids; Z79.84 Long term (current) use of oral hypoglycemic drugs; Z79.899 Other long term (current) drug therapy; Z85.21 Personal history of malignant neoplasm of larynx; Z88.0 Allergy status to penicillin; Z88.1 Allergy status to other antibiotic agents; Z88.2 Allergy status to sulfonamides; Z88.8 Allergy status to other drugs, medicaments and biological substances; Z92.21 Personal history of antineoplastic chemotherapy; Z92.3 Personal history of irradiation

== ENCOUNTER 2021-12-02 13:47 | Inpatient (IN) | payer MEDICARE ==
[~2021-12-02] VITALS: Ht 167.6 cm; Wt 77.7 kg
[~2021-12-02 13:47] MED LIST changes: +LEVO1TAB38 PO; +LEVO1TAB39 PO; -LEVO250T3 PO; -LEVO500T4 PO
[2021-12-02] MEDS ORDERED: FURO20TA2 PO (13:57)
[2021-12-02 15:30] LABS: BASO % 0.5 % (0.0-1.0); EOS % 0.4 % (0.0-3.0); HEMOGLOBIN 14.8 g/dl (12.0-15.5); LYMPH # 1.8 10^3/uL (1.5-5.0); LYMPH % 31.9 % (24.0-44.0); MEAN CORPUSCULAR HEMOGLOBIN 27.3 pg (27.0-33.0); MEAN CORPUSCULAR VOLUME 94.1 fl (80.0-96.0); MONO # 0.5 10^3/uL (0.0-0.8); MONO % 9.5 % (2.0-8.0); NEUTROPHILS # 3.2 10^3/uL (1.5-8.5); NEUTROPHILS % 57.5 % (36.0-66.0); PLATELET COUNT, AUTOMATED 190 10^3/uL (150-450); RED BLOOD COUNT 5.42 10^6/uL (4.00-5.40); WHITE BLOOD COUNT 5.5 10^3/uL (4.0-10.0)
[2021-12-02 16:04] LABS: ALBUMIN 2.8 GM/DL (3.2-5.2); ALT/SGPT 47 U/L (12-78); BILIRUBIN,DIRECT < 0.1 MG/DL (0.0-0.2); BILIRUBIN,TOTAL 0.4 MG/DL (0.2-1.0); BLOOD UREA NITROGEN 72 MG/DL (7-18); CALCIUM LEVEL 7.9 MG/DL (8.8-10.2); CARBON DIOXIDE LEVEL 26 MEQ/L (21-32); CHLORIDE LEVEL 103 MEQ/L (98-107); CREATININE FOR GFR 3.25 MG/DL (0.55-1.30); GLOMERULAR FILTRATION RATE 15.1 (>45); GLUCOSE, FASTING 149 MG/DL (70-100); NT-PRO BNP 60940 PG/ML (<125); POTASSIUM SERUM 6.4 MEQ/L (3.5-5.1); SODIUM LEVEL 135 MEQ/L (136-145); TOTAL PROTEIN 5.5 GM/DL (6.4-8.2)
[2021-12-02 16:57] LABS: RSV AMPLIFICATION NEGATIVE (NEGATIVE)
[2021-12-02] MEDS ORDERED: FUROSEMIDE 40MG/4ML VIAL (J1940) IV ONE (18:25)
[2021-12-02] MEDS ORDERED: PATIROMER SORBITEX CALCIUM 8.4 GM POWDER PACKET (VELTASSA) PO ONE (18:35)
[2021-12-02] MEDS ORDERED: GLUCOSE 4GM CHEW TABLET PO PRN (19:00)
[2021-12-02] MEDS ORDERED: GLUCAGON INJ 1MG VIAL SC PRN (19:00)
[2021-12-02] MEDS ORDERED: IPRATROPIUM 0.5MG/ALBUTEROL 2.5MG INH SOL UD 3ML (DUONEB) NEB PRN (19:00)
[2021-12-02] MEDS ORDERED: DEXTROSE 50% 50 ML SYRINGE IV PRN (19:00)
[2021-12-02] MEDS ORDERED: ACET500T15 PO (19:02)
[2021-12-02] MEDS ORDERED: HOME MED LIST COMPLETE! XX SCH (19:10)
[2021-12-02 21:00] VITALS: BP 90/50
[2021-12-02] MEDS ORDERED: COMBIVENT RESPIMAT 100-20MCG INHALER 4GM INH PRN (21:20)
[2021-12-02] MEDS ORDERED: SALIVA SUBSTITUTE(MOUTHKOTE) BTL MT PRN (21:25)
[2021-12-02] MEDS: FUROSEMIDE injection 250 MG in D5W 225 ML IV SCH (22:00)
[2021-12-02 22:05] VITALS: BP 88/46
[2021-12-02] MEDS: INSULIN LISPRO (NovoLOG) PER UNIT SC SCH (22:18)
[2021-12-02] MEDS: PANTOPRAZOLE 40MG TAB (PROTONIX) PO SCH (22:20)
[2021-12-02] MEDS: MIRTAZAPINE 15 MG TAB PO PRN (22:21)
[2021-12-02] MEDS: PRAVASTATIN 20 MG TAB PO SCH (22:21)
[2021-12-02] MEDS: RAMELTEON 8 MG TAB (ROZEREM) PO PRN (22:21)
[2021-12-02 23:12] LABS: CREATININE FOR GFR 3.13 MG/DL (0.55-1.30); GLOMERULAR FILTRATION RATE 15.8 (>45); POTASSIUM SERUM 5.4 MEQ/L (3.5-5.1)
[2021-12-02 23:35] VITALS: BP 100/50
[2021-12-03] VITALS (12 sets, daily range): BP systolic 0–111; BP diastolic 0–70; O2SAT 89
[2021-12-03] MEDS: FUROSEMIDE injection 250 MG in D5W 225 ML IV SCH (01:32)
[2021-12-03] MEDS: HEPARIN SOD (PORCINE) 5000UNITS/ML 1ML VIAL/SYRINGE SC SCH ×3 (05:47→20:37)
[2021-12-03 06:37] LABS: HEMATOCRIT 49.9 % (36.0-47.0); HEMOGLOBIN 14.7 g/dl (12.0-15.5); MEAN CORPUSCULAR HEMOGLOBIN 27.8 pg (27.0-33.0); MEAN CORPUSCULAR HGB CONC 29.5 g/dl (32.0-36.5); MEAN CORPUSCULAR VOLUME 94.5 fl (80.0-96.0); PLATELET COUNT, AUTOMATED 179 10^3/uL (150-450); RED BLOOD COUNT 5.28 10^6/uL (4.00-5.40); WHITE BLOOD COUNT 6.2 10^3/uL (4.0-10.0)
[2021-12-03 07:09] LABS: HEMOGLOBIN A1c 6.6 %
[2021-12-03 07:18] LABS: CALCIUM LEVEL 7.8 MG/DL (8.8-10.2); CREATININE FOR GFR 3.29 MG/DL (0.55-1.30); GLOMERULAR FILTRATION RATE 14.9 (>45); MAGNESIUM LEVEL 2.7 MG/DL (1.8-2.4); POTASSIUM SERUM 5.7 MEQ/L (3.5-5.1)
[2021-12-03] MEDS ORDERED: MIDODRINE 2.5 MG TAB PO SCH (08:00)
[2021-12-03] MEDS: INSULIN LISPRO (NovoLOG) PER UNIT SC SCH ×4 (08:45→20:36)
[2021-12-03] MEDS ORDERED: FUROSEMIDE 40MG/4ML VIAL (J1940) IV SCH (09:00)
[2021-12-03] MEDS ORDERED: IPRATROPIUM 0.5MG/ALBUTEROL 2.5MG INH SOL UD 3ML (DUONEB) NEB PRN (10:25)
[2021-12-03] MEDS ORDERED: NS 500 ML IV ONE (10:25)
[2021-12-03] MEDS ORDERED: PATIROMER SORBITEX CALCIUM 8.4 GM POWDER PACKET (VELTASSA) PO SCH (12:00)
[2021-12-03] MEDS: TIOTROPIUM INHALER/CAPSULE (SPIRIVA) INH SCH (12:07)
[2021-12-03] MEDS: SALMETEROL DISKUS 50MCG INHALER (SEREVENT) INH SCH ×2 (12:07→20:02)
[2021-12-03] MEDS: PRAVASTATIN 20 MG TAB PO SCH (20:36)
[2021-12-03] MEDS: PANTOPRAZOLE 40MG TAB (PROTONIX) PO SCH (20:36)
[2021-12-03] MEDS: MIRTAZAPINE 15 MG TAB PO PRN (20:37)
[2021-12-03] MEDS: RAMELTEON 8 MG TAB (ROZEREM) PO PRN (20:37)
[2021-12-03] MEDS: ACETAMINOPHEN TAB 650MG DOSE (2X325MG) PO PRN (20:37)
[2021-12-03 21:50] LABS: APPEARANCE, URINE MANUAL HAZY (CLEAR); COLOR, URINE MANUAL YELLOW (YELLOW); SPECIFIC GRAVITY,URINE MANUAL 1.025 (1.002-1.035)
[2021-12-03 21:51] LABS: BILIRUBIN, URINE MANUAL NEGATIVE (NEGATIVE); BLOOD URINE MANUAL NEGATIVE (NEGATIVE); GLUCOSE, URINE (UA) MANUAL NEGATIVE (NEGATIVE); KETONE, URINE MANUAL NEGATIVE (NEGATIVE); LEUKOCYTE ESTERASE, URINE MAN POSITIVE (NEGATIVE); NITRITE, URINE MANUAL NEGATIVE (NEGATIVE); PROTEIN, URINE MANUAL 2+ mg/dL (NEGATIVE); UROBILINOGEN, URINE MANUAL NORMAL (NORMAL)
[2021-12-03 21:59] LABS: WBC, URINE 20-30 /hpf (0-3)
[2021-12-03 22:00] LABS: RBC, URINE 0-1 /hpf (0-3)
[2021-12-03 22:01] LABS: BACTERIA, URINE SMALL AMOUNT; HYALINE CAST, URINE NONE SEEN /lpf (0-1); SQUAMOUS EPITHELIAL CELL URINE SMALL AMOUNT /hpf (SMALL AMT); TRANSITIONAL EPI CELLS, URINE SMALL AMOUNT /hpf
[2021-12-03 22:02] LABS: MUCUS, URINE SMALL AMOUNT (NEGATIVE)
[2021-12-04] VITALS (23 sets, daily range): BP systolic 74–110; BP diastolic 34–70; O2SAT 88–90
[2021-12-04] MEDS: HEPARIN SOD (PORCINE) 5000UNITS/ML 1ML VIAL/SYRINGE SC SCH ×3 (05:47→21:22)
[2021-12-04] MEDS ORDERED: NS 500 ML IV ONE ×3 (06:00→13:00)
[2021-12-04] MEDS ORDERED: MIDODRINE 2.5 MG TAB PO ONE (07:30)
[2021-12-04] MEDS: TIOTROPIUM INHALER/CAPSULE (SPIRIVA) INH SCH (08:09)
[2021-12-04] MEDS: SALMETEROL DISKUS 50MCG INHALER (SEREVENT) INH SCH ×2 (08:09→20:00)
[2021-12-04 08:46] LABS: BASO % 0.4 % (0.0-1.0); EOS % 0.5 % (0.0-3.0); HEMOGLOBIN 14.8 g/dl (12.0-15.5); LYMPH # 1.3 10^3/uL (1.5-5.0); LYMPH % 22.8 % (24.0-44.0); MEAN CORPUSCULAR HGB CONC 27.4 g/dl (32.0-36.5); MEAN CORPUSCULAR VOLUME 98.4 fl (80.0-96.0); MONO # 0.7 10^3/uL (0.0-0.8); MONO % 11.6 % (2.0-8.0); NEUTROPHILS # 3.6 10^3/uL (1.5-8.5); NEUTROPHILS % 64.5 % (36.0-66.0); PLATELET COUNT, AUTOMATED 172 10^3/uL (150-450); RED BLOOD COUNT 5.49 10^6/uL (4.00-5.40); WHITE BLOOD COUNT 5.6 10^3/uL (4.0-10.0)
[2021-12-04] MEDS: INSULIN LISPRO (NovoLOG) PER UNIT SC SCH ×4 (09:07→21:00)
[2021-12-04 09:18] LABS: CALCIUM LEVEL 7.9 MG/DL (8.8-10.2); CREATININE FOR GFR 4.19 MG/DL (0.55-1.30); GLOMERULAR FILTRATION RATE 11.3 (>45)
[2021-12-04] MEDS ORDERED: PATIROMER SORBITEX CALCIUM 8.4 GM POWDER PACKET (VELTASSA) PO SCH (12:00)
[2021-12-04] MEDS: NS 1,000 ML IV SCH ×2 (12:03→22:22)
[2021-12-04] MEDS: ACETAMINOPHEN TAB 650MG DOSE (2X325MG) PO PRN (14:43)
[2021-12-04] MEDS ORDERED: ONDANSETRON 4MG 2ML VIAL IV PRN (15:10)
[2021-12-04 16:19] LABS: CALCIUM LEVEL 7.5 MG/DL (8.8-10.2); CREATININE FOR GFR 4.29 MG/DL (0.55-1.30); POTASSIUM SERUM 5.9 MEQ/L (3.5-5.1)
[2021-12-04] MEDS: cefTRIAXone SOD 1 GM in D5W MINI-BAG PLUS 50 ML IV SCH (16:29)
[2021-12-04] MEDS ORDERED: SODIUM CHLORIDE 0.9% 1000ML IV ONE (17:20)
[2021-12-04] MEDS: NOREPINEPHRINE/DEXTROSE 8 MG in IV 1 EA IV SCH (17:33)
[2021-12-04 17:38] LABS: ABG BASE EXCESS -9.1 (-2.0-2.0); ABG HCO3 23.3 MEQ/L (22.0-26.0); ABG PARTIAL PRESSURE O2 80.3 mmHg (75.0-100.0); ABG STANDARD HCO3 17.2 MEQ/L (22.0-26.0)
[2021-12-04 17:42] LABS: ABG PARTIAL PRESSURE CO2 86.3 mmHg (35.0-45.0)
[2021-12-04] MEDS ORDERED: methylPREDNISolone 125MG 2ML VIAL IV ONE (17:50)
[2021-12-04 19:32] LABS: ABG BASE EXCESS -11.1 (-2.0-2.0); ABG HCO3 20.1 MEQ/L (22.0-26.0); ABG O2 SATURATION 96.7 % (95.0-99.0); ABG PARTIAL PRESSURE O2 89.2 mmHg (75.0-100.0); ABG STANDARD HCO3 15.9 MEQ/L (22.0-26.0); ABG TOTAL CO2 22.2 MEQ/L (23.0-31.0)
[2021-12-04 19:38] LABS: ABG PARTIAL PRESSURE CO2 69.1 mmHg (35.0-45.0); ABG pH (ARTERIAL) 7.082 UNITS (7.350-7.450)
[2021-12-04] MEDS ORDERED: SODIUM BICARBONATE 8.4% INJ 50 ML SYRINGE IV STA ×2 (19:48→21:58)
[2021-12-04 20:18] LABS: CALCIUM LEVEL 7.5 MG/DL (8.8-10.2); CREATININE FOR GFR 4.23 MG/DL (0.55-1.30); GLOMERULAR FILTRATION RATE 11.1 (>45); POTASSIUM SERUM 6.5 MEQ/L (3.5-5.1)
[2021-12-04] MEDS ORDERED: DEXTROSE 50% 50 ML SYRINGE IV STA (20:57)
[2021-12-04] MEDS ORDERED: HumuLIN R (REGULAR) INSULIN (NovoLIN R) **100U/ML** PER UNIT IV STA (20:57)
[2021-12-04] MEDS: PANTOPRAZOLE 40MG TAB (PROTONIX) PO SCH (21:22)
[2021-12-04] MEDS: PRAVASTATIN 20 MG TAB PO SCH (21:22)
[2021-12-04 21:53] LABS: ABG BASE EXCESS -8.9 (-2.0-2.0); ABG HCO3 20.7 MEQ/L (22.0-26.0); ABG O2 SATURATION 98.4 % (95.0-99.0); ABG PARTIAL PRESSURE O2 111.3 mmHg (75.0-100.0); ABG STANDARD HCO3 17.5 MEQ/L (22.0-26.0); ABG TOTAL CO2 22.6 MEQ/L (23.0-31.0)
[2021-12-04 21:55] LABS: ABG PARTIAL PRESSURE CO2 60.2 mmHg (35.0-45.0); ABG pH (ARTERIAL) 7.155 UNITS (7.350-7.450)
[2021-12-04] MEDS: AZTREONAM 1 GM in D5W MINI-BAG PLUS 50 ML IV SCH (22:22)
[2021-12-05] VITALS (53 sets, daily range): BP systolic 83–125; BP diastolic 50–70
[2021-12-05 00:58] LABS: CALCIUM LEVEL 7.4 MG/DL (8.8-10.2); CREATININE FOR GFR 4.22 MG/DL (0.55-1.30); GLOMERULAR FILTRATION RATE 11.2 (>45); POTASSIUM SERUM 6.1 MEQ/L (3.5-5.1)
[2021-12-05] MEDS: AZTREONAM 1 GM in D5W MINI-BAG PLUS 50 ML IV SCH ×3 (04:55→19:46)
[2021-12-05 06:16] LABS: BASO % 0.2 % (0.0-1.0); HEMATOCRIT 50.6 % (36.0-47.0); HEMOGLOBIN 14.3 g/dl (12.0-15.5); LYMPH % 22.9 % (24.0-44.0); MEAN CORPUSCULAR HEMOGLOBIN 27.2 pg (27.0-33.0); MEAN CORPUSCULAR HGB CONC 28.3 g/dl (32.0-36.5); MEAN CORPUSCULAR VOLUME 96.2 fl (80.0-96.0); MONO # 0.3 10^3/uL (0.0-0.8); MONO % 7.5 % (2.0-8.0); NEUTROPHILS # 3.1 10^3/uL (1.5-8.5); NEUTROPHILS % 68.9 % (36.0-66.0); PLATELET COUNT, AUTOMATED 152 10^3/uL (150-450); RED BLOOD COUNT 5.26 10^6/uL (4.00-5.40); WHITE BLOOD COUNT 4.4 10^3/uL (4.0-10.0)
[2021-12-05] MEDS: HEPARIN SOD (PORCINE) 5000UNITS/ML 1ML VIAL/SYRINGE SC SCH ×3 (06:20→21:58)
[2021-12-05 06:29] LABS: ABG BASE EXCESS -6.6 (-2.0-2.0); ABG HCO3 22.5 MEQ/L (22.0-26.0); ABG O2 SATURATION 94.1 % (95.0-99.0); ABG PARTIAL PRESSURE O2 71.8 mmHg (75.0-100.0); ABG STANDARD HCO3 19.1 MEQ/L (22.0-26.0); ABG TOTAL CO2 24.3 MEQ/L (23.0-31.0)
[2021-12-05 06:31] LABS: ABG pH (ARTERIAL) 7.192 UNITS (7.350-7.450)
[2021-12-05] MEDS: NOREPINEPHRINE/DEXTROSE 8 MG in IV 1 EA IV SCH ×2 (06:40→20:00)
[2021-12-05 06:45] LABS: CALCIUM LEVEL 7.7 MG/DL (8.8-10.2); CREATININE FOR GFR 4.12 MG/DL (0.55-1.30); GLOMERULAR FILTRATION RATE 11.5 (>45)
[2021-12-05] MEDS ORDERED: PATIROMER SORBITEX CALCIUM 8.4 GM POWDER PACKET (VELTASSA) PO ONE (07:00)
[2021-12-05] MEDS: INSULIN LISPRO (NovoLOG) PER UNIT SC SCH ×4 (08:11→21:00)
[2021-12-05] MEDS: SALMETEROL DISKUS 50MCG INHALER (SEREVENT) INH SCH ×2 (08:17→20:31)
[2021-12-05] MEDS: TIOTROPIUM INHALER/CAPSULE (SPIRIVA) INH SCH (08:18)
[2021-12-05] MEDS ORDERED: SODIUM CHLORIDE 0.9% INJ 10 ML SYR IV PRN (09:40)
[2021-12-05] MEDS ORDERED: fentaNYL 100 MCG/2 ML INJECTION IV STA (10:34)
[2021-12-05] MEDS ORDERED: LIDOCAINE 1% MDV 20ML VIAL As Ordered ONE (10:47)
[2021-12-05] MEDS ORDERED: PATIROMER SORBITEX CALCIUM 8.4 GM POWDER PACKET (VELTASSA) PO SCH (12:00)
[2021-12-05] MEDS ORDERED: LIDOCAINE 1% MDV 20ML VIAL SC ONE (12:35)
[2021-12-05] MEDS: NS 1,000 ML IV SCH (16:39)
[2021-12-05] MEDS: cefTRIAXone SOD 1 GM in D5W MINI-BAG PLUS 50 ML IV SCH (16:40)
[2021-12-05 19:07] LABS: CALCIUM LEVEL 7.7 MG/DL (8.8-10.2); CREATININE FOR GFR 3.75 MG/DL (0.55-1.30); GLOMERULAR FILTRATION RATE 12.8 (>45); POTASSIUM SERUM 5.3 MEQ/L (3.5-5.1)
[2021-12-05] MEDS: FUROSEMIDE injection 250 MG in D5W 225 ML IV SCH (19:46)
[2021-12-05 20:38] LABS: ABG BASE EXCESS -3.1 (-2.0-2.0); ABG HCO3 24.6 MEQ/L (22.0-26.0); ABG O2 SATURATION 94.6 % (95.0-99.0); ABG PARTIAL PRESSURE CO2 55.3 mmHg (35.0-45.0); ABG PARTIAL PRESSURE O2 74.7 mmHg (75.0-100.0); ABG STANDARD HCO3 21.8 MEQ/L (22.0-26.0); ABG TOTAL CO2 26.3 MEQ/L (23.0-31.0); ABG pH (ARTERIAL) 7.266 UNITS (7.350-7.450)
[2021-12-05] MEDS: PRAVASTATIN 20 MG TAB PO SCH (21:58)
[2021-12-05] MEDS: PANTOPRAZOLE 40MG TAB (PROTONIX) PO SCH (21:58)
[2021-12-05] MEDS: MIRTAZAPINE 15 MG TAB PO PRN (22:17)
[2021-12-06] VITALS (26 sets, daily range): BP systolic 95–124; BP diastolic 52–74
[2021-12-06] MEDS: AZTREONAM 1 GM in D5W MINI-BAG PLUS 50 ML IV SCH ×3 (04:09→20:18)
[2021-12-06 04:32] LABS: BASO % 0.5 % (0.0-1.0); EOS % 0.5 % (0.0-3.0); HEMATOCRIT 51.3 % (36.0-47.0); HEMOGLOBIN 14.9 g/dl (12.0-15.5); LYMPH # 1.4 10^3/uL (1.5-5.0); LYMPH % 22.4 % (24.0-44.0); MEAN CORPUSCULAR HEMOGLOBIN 27.7 pg (27.0-33.0); MEAN CORPUSCULAR VOLUME 95.4 fl (80.0-96.0); MONO # 0.8 10^3/uL (0.0-0.8); MONO % 12.1 % (2.0-8.0); PLATELET COUNT, AUTOMATED 151 10^3/uL (150-450); RED BLOOD COUNT 5.38 10^6/uL (4.00-5.40); WHITE BLOOD COUNT 6.3 10^3/uL (4.0-10.0)
[2021-12-06 05:13] LABS: CALCIUM LEVEL 7.9 MG/DL (8.8-10.2); CREATININE FOR GFR 3.47 MG/DL (0.55-1.30); POTASSIUM SERUM 5.6 MEQ/L (3.5-5.1); THYROID STIMULATING HORMONE 1.07 uIU/ML (0.358-3.740)
[2021-12-06] MEDS: HEPARIN SOD (PORCINE) 5000UNITS/ML 1ML VIAL/SYRINGE SC SCH ×3 (05:39→20:25)
[2021-12-06] MEDS: TIOTROPIUM INHALER/CAPSULE (SPIRIVA) INH SCH (07:44)
[2021-12-06] MEDS: SALMETEROL DISKUS 50MCG INHALER (SEREVENT) INH SCH ×2 (07:44→20:00)
[2021-12-06] MEDS: INSULIN LISPRO (NovoLOG) PER UNIT SC SCH ×4 (08:22→20:18)
[2021-12-06 08:40] LABS: ABG BASE EXCESS -7.1 (-2.0-2.0); ABG HCO3 25.4 MEQ/L (22.0-26.0); ABG PARTIAL PRESSURE O2 91.5 mmHg (75.0-100.0); ABG STANDARD HCO3 18.7 MEQ/L (22.0-26.0); ABG TOTAL CO2 28.1 MEQ/L (23.0-31.0)
[2021-12-06 08:43] LABS: ABG PARTIAL PRESSURE CO2 89.2 mmHg (35.0-45.0); ABG pH (ARTERIAL) 7.072 UNITS (7.350-7.450)
[2021-12-06] MEDS: ACETAMINOPHEN TAB 650MG DOSE (2X325MG) PO PRN (12:34)
[2021-12-06 17:32] LABS: ABG BASE EXCESS -2.1 (-2.0-2.0); ABG HCO3 25.9 MEQ/L (22.0-26.0); ABG O2 SATURATION 94.8 % (95.0-99.0); ABG PARTIAL PRESSURE CO2 57.7 mmHg (35.0-45.0); ABG PARTIAL PRESSURE O2 71.5 mmHg (75.0-100.0); ABG STANDARD HCO3 22.7 MEQ/L (22.0-26.0); ABG TOTAL CO2 27.7 MEQ/L (23.0-31.0)
[2021-12-06] MEDS: FUROSEMIDE injection 250 MG in D5W 225 ML IV SCH (18:06)
[2021-12-06 18:14] LABS: CREATININE FOR GFR 2.9 MG/DL (0.55-1.30); GLOMERULAR FILTRATION RATE 17.2 (>45); POTASSIUM SERUM 5.1 MEQ/L (3.5-5.1)
[2021-12-06 18:15] LABS: CALCIUM LEVEL 7.6 MG/DL (8.8-10.2)
[2021-12-06] MEDS: MIRTAZAPINE 15 MG TAB PO PRN (20:17)
[2021-12-06] MEDS: PANTOPRAZOLE 40MG TAB (PROTONIX) PO SCH (20:18)
[2021-12-06] MEDS: PRAVASTATIN 20 MG TAB PO SCH (20:18)
[2021-12-07] VITALS (14 sets, daily range): BP systolic 99–128; BP diastolic 55–81
[2021-12-07] MEDS: AZTREONAM 1 GM in D5W MINI-BAG PLUS 50 ML IV SCH (04:16)
[2021-12-07 05:37] LABS: ABG BASE EXCESS -0.9 (-2.0-2.0); ABG HCO3 25.9 MEQ/L (22.0-26.0); ABG O2 SATURATION 96.7 % (95.0-99.0); ABG PARTIAL PRESSURE O2 84.2 mmHg (75.0-100.0); ABG STANDARD HCO3 23.7 MEQ/L (22.0-26.0); ABG TOTAL CO2 27.4 MEQ/L (23.0-31.0); ABG pH (ARTERIAL) 7.323 UNITS (7.350-7.450)
[2021-12-07 05:40] LABS: BASO % 0.2 % (0.0-1.0); EOS # 0.1 10^3/uL (0.0-0.5); EOS % 2.8 % (0.0-3.0); HEMATOCRIT 45.9 % (36.0-47.0); HEMOGLOBIN 13.6 g/dl (12.0-15.5); LYMPH # 1.3 10^3/uL (1.5-5.0); MEAN CORPUSCULAR HEMOGLOBIN 27.1 pg (27.0-33.0); MEAN CORPUSCULAR HGB CONC 29.6 g/dl (32.0-36.5); MEAN CORPUSCULAR VOLUME 91.4 fl (80.0-96.0); MONO # 0.6 10^3/uL (0.0-0.8); MONO % 12.5 % (2.0-8.0); NEUTROPHILS # 2.7 10^3/uL (1.5-8.5); NEUTROPHILS % 57.3 % (36.0-66.0); PLATELET COUNT, AUTOMATED 149 10^3/uL (150-450); RED BLOOD COUNT 5.02 10^6/uL (4.00-5.40); WHITE BLOOD COUNT 4.6 10^3/uL (4.0-10.0)
[2021-12-07 06:20] LABS: CALCIUM LEVEL 7.7 MG/DL (8.8-10.2); CREATININE FOR GFR 2.6 MG/DL (0.55-1.30); GLOMERULAR FILTRATION RATE 19.5 (>45); POTASSIUM SERUM 4.8 MEQ/L (3.5-5.1)
[2021-12-07] MEDS: HEPARIN SOD (PORCINE) 5000UNITS/ML 1ML VIAL/SYRINGE SC SCH ×3 (06:41→21:13)
[2021-12-07] MEDS: TIOTROPIUM INHALER/CAPSULE (SPIRIVA) INH SCH (07:13)
[2021-12-07] MEDS: INSULIN LISPRO (NovoLOG) PER UNIT SC SCH ×4 (07:30→20:01)
[2021-12-07] MEDS: SALMETEROL DISKUS 50MCG INHALER (SEREVENT) INH SCH ×2 (08:00→19:26)
[2021-12-07] MEDS ORDERED: SENNA 8.6 MG TAB (SENOKOT) PO PRN (08:30)
[2021-12-07] MEDS: MIRALAX *UNIT DOSE* 17GM PACKET PO SCH ×2 (09:00→20:00)
[2021-12-07] MEDS ORDERED: SODIUM CHLORIDE 0.9% INJ 10 ML SYR IV PRN (09:45)
[2021-12-07 09:48] LABS: MAGNESIUM LEVEL 2.1 MG/DL (1.8-2.4)
[2021-12-07] MEDS: MIRTAZAPINE 15 MG TAB PO PRN (15:40)
[2021-12-07] MEDS: PRAVASTATIN 20 MG TAB PO SCH (20:00)
[2021-12-07] MEDS: PANTOPRAZOLE 40MG TAB (PROTONIX) PO SCH (20:00)
[2021-12-08] VITALS: BP 137/66
[2021-12-08 04:00] VITALS: BP 141/72
[2021-12-08] MEDS: HEPARIN SOD (PORCINE) 5000UNITS/ML 1ML VIAL/SYRINGE SC SCH ×3 (05:03→21:14)
[2021-12-08 05:22] LABS: BASO % 0.5 % (0.0-1.0); EOS # 0.1 10^3/uL (0.0-0.5); EOS % 3.2 % (0.0-3.0); HEMATOCRIT 48.6 % (36.0-47.0); HEMOGLOBIN 14.3 g/dl (12.0-15.5); LYMPH # 1.2 10^3/uL (1.5-5.0); LYMPH % 31.2 % (24.0-44.0); MEAN CORPUSCULAR HEMOGLOBIN 26.8 pg (27.0-33.0); MEAN CORPUSCULAR HGB CONC 29.4 g/dl (32.0-36.5); MEAN CORPUSCULAR VOLUME 91.2 fl (80.0-96.0); MONO # 0.5 10^3/uL (0.0-0.8); NEUTROPHILS % 51.6 % (36.0-66.0); PLATELET COUNT, AUTOMATED 132 10^3/uL (150-450); RED BLOOD COUNT 5.33 10^6/uL (4.00-5.40); WHITE BLOOD COUNT 3.8 10^3/uL (4.0-10.0)
[2021-12-08 05:41] LABS: ABG BASE EXCESS 1.8 (-2.0-2.0); ABG HCO3 30.1 MEQ/L (22.0-26.0); ABG O2 SATURATION 91.7 % (95.0-99.0); ABG PARTIAL PRESSURE O2 63.9 mmHg (75.0-100.0); ABG STANDARD HCO3 25.9 MEQ/L (22.0-26.0); ABG pH (ARTERIAL) 7.296 UNITS (7.350-7.450)
[2021-12-08 05:42] LABS: ABG PARTIAL PRESSURE CO2 63.1 mmHg (35.0-45.0)
[2021-12-08 05:50] LABS: CREATININE FOR GFR 1.78 MG/DL (0.55-1.30); GLOMERULAR FILTRATION RATE 30.3 (>45); POTASSIUM SERUM 4.5 MEQ/L (3.5-5.1)
[2021-12-08] MEDS: TIOTROPIUM INHALER/CAPSULE (SPIRIVA) INH SCH (07:10)
[2021-12-08] MEDS: SALMETEROL DISKUS 50MCG INHALER (SEREVENT) INH SCH ×2 (07:11→19:15)
[2021-12-08] MEDS: INSULIN LISPRO (NovoLOG) PER UNIT SC SCH ×4 (07:19→20:04)
[2021-12-08] MEDS: MIRALAX *UNIT DOSE* 17GM PACKET PO SCH ×2 (07:45→20:05)
[2021-12-08 08:00] VITALS: BP 134/83
[2021-12-08] MEDS: SODIUM CHLORIDE 0.9% INJ 10 ML SYR IV SCH (08:08)
[2021-12-08 12:01] VITALS: BP 136/67
[2021-12-08 14:14] LABS: ABG BASE EXCESS 5.7 (-2.0-2.0); ABG HCO3 32.5 MEQ/L (22.0-26.0); ABG O2 SATURATION 94.4 % (95.0-99.0); ABG PARTIAL PRESSURE CO2 56.8 mmHg (35.0-45.0); ABG PARTIAL PRESSURE O2 66.5 mmHg (75.0-100.0); ABG STANDARD HCO3 29.5 MEQ/L (22.0-26.0); ABG TOTAL CO2 34.3 MEQ/L (23.0-31.0); ABG pH (ARTERIAL) 7.376 UNITS (7.350-7.450)
[2021-12-08 16:06] LABS: UREA NITROGEN 24 HOUR URINE 12919.5 MG/24HR (7000-20000)
[2021-12-08 19:45] VITALS: BP 139/81
[2021-12-08] MEDS: MIRTAZAPINE 15 MG TAB PO PRN (20:04)
[2021-12-08] MEDS: PANTOPRAZOLE 40MG TAB (PROTONIX) PO SCH (20:04)
[2021-12-08] MEDS: RAMELTEON 8 MG TAB (ROZEREM) PO PRN (20:04)
[2021-12-08] MEDS: PRAVASTATIN 20 MG TAB PO SCH (20:04)
[2021-12-09 03:51] VITALS: BP 140/73
[2021-12-09 04:31] LABS: BASO % 0.3 % (0.0-1.0); EOS # 0.1 10^3/uL (0.0-0.5); HEMATOCRIT 47.8 % (36.0-47.0); HEMOGLOBIN 13.8 g/dl (12.0-15.5); LYMPH % 29.3 % (24.0-44.0); MEAN CORPUSCULAR HEMOGLOBIN 26.8 pg (27.0-33.0); MEAN CORPUSCULAR HGB CONC 28.9 g/dl (32.0-36.5); MONO # 0.5 10^3/uL (0.0-0.8); MONO % 14.8 % (2.0-8.0); NEUTROPHILS # 1.8 10^3/uL (1.5-8.5); NEUTROPHILS % 53.3 % (36.0-66.0); PLATELET COUNT, AUTOMATED 131 10^3/uL (150-450); RED BLOOD COUNT 5.14 10^6/uL (4.00-5.40); WHITE BLOOD COUNT 3.5 10^3/uL (4.0-10.0)
[2021-12-09 05:21] LABS: CALCIUM LEVEL 7.8 MG/DL (8.8-10.2); CREATININE FOR GFR 1.16 MG/DL (0.55-1.30); GLOMERULAR FILTRATION RATE 49.6 (>45); POTASSIUM SERUM 4.4 MEQ/L (3.5-5.1)
[2021-12-09] MEDS: HEPARIN SOD (PORCINE) 5000UNITS/ML 1ML VIAL/SYRINGE SC SCH (05:23)
[2021-12-09 07:58] VITALS: BP 137/77
[2021-12-09] MEDS: TIOTROPIUM INHALER/CAPSULE (SPIRIVA) INH SCH (08:24)
[2021-12-09] MEDS: SALMETEROL DISKUS 50MCG INHALER (SEREVENT) INH SCH (08:24)
[2021-12-09] MEDS: SODIUM CHLORIDE 0.9% INJ 10 ML SYR IV SCH (08:50)
[2021-12-09] MEDS: MIRALAX *UNIT DOSE* 17GM PACKET PO SCH (08:50)
[2021-12-09] MEDS: INSULIN LISPRO (NovoLOG) PER UNIT SC SCH (08:50)
== END 2021-12-09 12:40 | disposition home or self-care (01) | DRG 291 ==
LOC: M ED 13:47 → M ED INP 18:57 → M MSPAV 21:02 → M ICU 12-04 16:47
PROVIDERS: ADMIT Family Medicine; ATTEND General Practice
DX: I13.0 Hypertensive heart and chronic kidney disease with heart failure and stage 1 through stage 4 chronic kidney disease, or unspecified chronic kidney disease (principal); I50.33 Acute on chronic diastolic (congestive) heart failure; J96.21 Acute and chronic respiratory failure with hypoxia; J96.22 Acute and chronic respiratory failure with hypercapnia; R57.1 Hypovolemic shock; N17.9 Acute kidney failure, unspecified; C34.32 Malignant neoplasm of lower lobe, left bronchus or lung; E87.2 Acidosis; E87.1 Hypo-osmolality and hyponatremia; N18.30 Chronic kidney disease, stage 3 unspecified; E87.5 Hyperkalemia; E78.5 Hyperlipidemia, unspecified; E11.22 Type 2 diabetes mellitus with diabetic chronic kidney disease; D35.01 Benign neoplasm of right adrenal gland; J84.10 Pulmonary fibrosis, unspecified; K21.9 Gastro-esophageal reflux disease without esophagitis; R41.82 Altered mental status, unspecified; I95.89 Other hypotension; J44.9 Chronic obstructive pulmonary disease, unspecified; R68.2 Dry mouth, unspecified; Z99.81 Dependence on supplemental oxygen; Z79.84 Long term (current) use of oral hypoglycemic drugs; Z79.899 Other long term (current) drug therapy; Z88.0 Allergy status to penicillin; Z88.2 Allergy status to sulfonamides; Z88.8 Allergy status to other drugs, medicaments and biological substances; Z85.21 Personal history of malignant neoplasm of larynx; Z98.41 Cataract extraction status, right eye; Z98.42 Cataract extraction status, left eye; Z53.09 Procedure and treatment not carried out because of other contraindication; Z92.3 Personal history of irradiation

== ENCOUNTER → 2022-01-05 | Outpatient (CLI) | payer MEDICARE ==
[~2022-01-05] MED LIST changes: +ACET500T15 PO; +FURO20TA2 PO
[2022-01-05 16:08] LABS: BASO % 0.6 % (0.0-1.0); EOS # 0.1 10^3/uL (0.0-0.5); EOS % 2.2 % (0.0-3.0); HEMATOCRIT 57.4 % (36.0-47.0); HEMOGLOBIN 16.8 g/dl (12.0-15.5); LYMPH # 1.7 10^3/uL (1.5-5.0); LYMPH % 33.5 % (24.0-44.0); MEAN CORPUSCULAR HEMOGLOBIN 26.5 pg (27.0-33.0); MEAN CORPUSCULAR HGB CONC 29.3 g/dl (32.0-36.5); MEAN CORPUSCULAR VOLUME 90.7 fl (80.0-96.0); MONO # 0.5 10^3/uL (0.0-0.8); MONO % 9.2 % (2.0-8.0); NEUTROPHILS # 2.7 10^3/uL (1.5-8.5); NEUTROPHILS % 54.1 % (36.0-66.0); PLATELET COUNT, AUTOMATED 183 10^3/uL (150-450); RED BLOOD COUNT 6.33 10^6/uL (4.00-5.40)
[2022-01-05 16:23] LABS: ALBUMIN 3.4 GM/DL (3.2-5.2); BILIRUBIN,TOTAL 0.7 MG/DL (0.2-1.0); CALCIUM LEVEL 9.1 MG/DL (8.8-10.2); CHOLESTEROL RISK RATIO 6.333 (<5); CREATININE FOR GFR 1.34 MG/DL (0.55-1.30); PERCENT SATURATION 27.6 % (13.2-45.0); POTASSIUM SERUM 4.8 MEQ/L (3.5-5.1); TOTAL PROTEIN 6.7 GM/DL (6.4-8.2)
[2022-01-05 16:24] LABS: THYROID STIMULATING HORMONE 1.36 uIU/ML (0.358-3.740)
[2022-01-05 16:27] LABS: HEMOGLOBIN A1c 6.8 %
[2022-01-05 17:08] LABS: TOTAL 25(OH) VITAMIN D 11.1 NG/ML (30.0-100.0)
== END ==
LOC: M PLALAB 12:22
PROVIDERS: ATTEND Nurse Practitioner Family
DX: I10 Essential (primary) hypertension (principal); E55.9 Vitamin D deficiency, unspecified

== ENCOUNTER 2022-03-10 11:38 | Emergency (ER) | payer MEDICARE ==
[~2022-03-10] VITALS: Ht 167.6 cm; Wt 65.0 kg
[~2022-03-10 11:38] MED LIST changes: -GABA-282 PO; -HYDR-3713 PO; -TORS20TA2
[2022-03-10] MEDS ORDERED: TORS20TA2 (11:49)
[2022-03-10] MEDS ORDERED: NORCO, ANEXSIA 5/325MG TABLET (HYDROcodone/ACETAMINOPHEN) PO ONE (14:55)
[2022-03-10] MEDS ORDERED: HYDR-3713 PO (16:27)
[2022-03-10 16:39] VITALS: BP 134/72
[2022-03-17] MEDS ORDERED: GABA-282 PO (12:15)
== END 2022-03-10 16:43 | disposition home or self-care (01) ==
LOC: M ED 11:38
DX: R91.8 Other nonspecific abnormal finding of lung field (principal); I50.9 Heart failure, unspecified; I10 Essential (primary) hypertension; J44.9 Chronic obstructive pulmonary disease, unspecified; E78.5 Hyperlipidemia, unspecified; Z87.01 Personal history of pneumonia (recurrent); Z85.118 Personal history of other malignant neoplasm of bronchus and lung; Z85.21 Personal history of malignant neoplasm of larynx; Z92.3 Personal history of irradiation; Z99.81 Dependence on supplemental oxygen; Z98.61 Coronary angioplasty status; Z87.891 Personal history of nicotine dependence; Z79.84 Long term (current) use of oral hypoglycemic drugs; Z79.899 Other long term (current) drug therapy; Z88.0 Allergy status to penicillin; Z88.2 Allergy status to sulfonamides; Z88.8 Allergy status to other drugs, medicaments and biological substances

== ENCOUNTER → 2022-03-10 | Outpatient (CLI) | payer MEDICARE ==
[~2022-03-10] MED LIST changes: +ERGO500029; +GABA-282 PO; +HYDR-3713 PO; +TORS20TA2
== END ==
LOC: M RAD 11:06
PROVIDERS: ATTEND Nurse Practitioner
DX: D50.9 Iron deficiency anemia, unspecified (principal); C34.32 Malignant neoplasm of lower lobe, left bronchus or lung; R59.0 Localized enlarged lymph nodes; I51.7 Cardiomegaly; I31.39 Other pericardial effusion (noninflammatory); I70.0 Atherosclerosis of aorta; I25.10 Atherosclerotic heart disease of native coronary artery without angina pectoris; D35.01 Benign neoplasm of right adrenal gland; D35.02 Benign neoplasm of left adrenal gland; Z95.828 Presence of other vascular implants and grafts; J43.2 Centrilobular emphysema

== ENCOUNTER → 2022-03-17 | Outpatient (CLI) | payer MEDICARE ==
[~2022-03-17] MED LIST changes: +GABA-282 PO; +HYDR-3713 PO; +TORS20TA2
== END ==
LOC: M ONCR 10:57
PROVIDERS: ATTEND General Practice
DX: R91.8 Other nonspecific abnormal finding of lung field (principal); M84.48XA Pathological fracture, other site, initial encounter for fracture; Z85.118 Personal history of other malignant neoplasm of bronchus and lung; Z79.84 Long term (current) use of oral hypoglycemic drugs; Z79.899 Other long term (current) drug therapy; Z85.89 Personal history of malignant neoplasm of other organs and systems; Z87.891 Personal history of nicotine dependence; Z88.0 Allergy status to penicillin; Z88.2 Allergy status to sulfonamides; Z88.8 Allergy status to other drugs, medicaments and biological substances; Z92.3 Personal history of irradiation